=== PATIENT | female | born 1960 | race Caucasian/White ===

== ENCOUNTER 2018-02-28 00:48 | Outpatient (CLI) | payer OTHER, SELFPAY ==
--- NOTE | 2018-02-28 10:10 | MERGE_ITS ---
*[facility]* *[facility]* [address] [place] [address] Date of study: 02/28/2018 Transthoracic Echocardiography M-mode, complete 2D, complete spectral Doppler, and color Doppler *STUDY CONCLUSIONS* Summary: 1. Left ventricle: The cavity size was normal. The estimated ejection fraction was 50%. There was no evidence of elevated ventricular filling pressure by Doppler parameters. 2. Ventricular septum: Septal motion showed paradoxical motion. 3. Aortic valve: There was mild regurgitation. 4. Mitral valve: There was mild to moderate regurgitation. 5. Right ventricle: The cavity size was normal. Wall thickness was normal. Systolic function was normal. 6. Atrial septum: No defect or patent foramen ovale was identified. 7. Pulmonary arteries: Pulmonary systolic pressure was in the range of 15mm Hg to 25mm Hg. 8. Inferior vena cava: The vessel was patent and normal in size. The respirophasic diameter changes were in the normal range (greater than or equal to 50%), consistent with normal central venous pressure. *PATIENT PRESENTATION* Height: 165.1cm ((65in) ) S/D Pressure: 130 / 77 Weight: 72.6kg ((159.7lb) ) BSA: 1.84m^2 Test start time: 10:30 AM. Test stop time: 11:20 AM. PERFORMING Unknown PERFORMING [facility] ORDERING Catalina Black Aprn REFERRING Catalina Black Aprn BANKING MANAGEMENT CONSULTING MANAGER Alysha Foote, (R)(CT), ARTIE *PROCEDURE DATA* Procedure information: The patient was identified by two identifiers. This study was interpreted by [facility]. Pertinent images and digital data are archived for permanent storage and are available for subsequent review. No prior study was available for comparison. Study status: Routine. Transthoracic echocardiography. M-mode, complete 2D, complete spectral Doppler, and color Doppler. A Transthoracic Echocardiogram was performed. Scanning was performed from the parasternal, apical, subcostal, and suprasternal notch acoustic windows. Images were obtained using an [id number] cardiac ultrasound machine. Image quality was adequate. Study completion: The patient tolerated the procedure well. History: PMH: Left bundle branch block. *CARDIAC ANATOMY* Left ventricle: The cavity size was normal. The estimated ejection fraction was 50%. The tissue Doppler parameters were abnormal. Diastolic parameters were normal for age. There was no evidence of elevated ventricular filling pressure by Doppler parameters. Aortic valve: Trileaflet. Doppler: There was no stenosis. There was mild regurgitation. VTI ratio of LVOT to aortic valve: 0.64. Valve area (VTI): 2.1cm^2. Indexed valve area (VTI): 1.1cm^2/m^2. Peak velocity ratio of LVOT to aortic valve: 0.63. Valve area (Vmax): 2.1cm^2. Indexed valve area (Vmax): 1.1cm^2/m^2. Mean velocity ratio of LVOT to aortic valve: 0.57. Valve area (Vmean): 1.8cm^2. Indexed valve area (Vmean): 1cm^2/m^2. Mean gradient (S): 3.2mm Hg. Peak gradient (S): 6mm Hg. Aorta: Aortic root: The aortic root was normal in size. Ascending aorta: The ascending aorta was normal in size. Mitral valve: Doppler: There was no evidence for stenosis. There was mild to moderate regurgitation. Valve area by pressure half-time: 3.3cm^2. Indexed valve area by pressure half-time: 1.8cm^2/m^2. Left atrium: The atrium was normal in size. Atrial septum: No defect or patent foramen ovale was identified. Right ventricle: The cavity size was normal. Wall thickness was normal. Systolic function was normal. Ventricular septum: Septal motion showed paradoxical motion. Pulmonic valve: Doppler: There was no evidence for stenosis. There was mild regurgitation. Peak gradient (S): 2.5mm Hg. Tricuspid valve: Doppler: There was mild regurgitation. Pulmonary artery: Poorly visualized. Pulmonary systolic pressure was in the range of 15mm Hg to 25mm Hg. Right atrium: The atrium was normal in size. Pericardium: There was no pericardial effusion. Systemic veins: Inferior vena cava: Well visualized. The vessel was patent and normal in size. The respirophasic diameter changes were in the normal range (greater than or equal to 50%), consistent with normal central venous pressure. Baseline ECG: with left bundle branch block. Measurements Left ventricle Value Reference LV ID, ED, PLAX 5.3 cm 3.5 - 6.0 LV ID, ES, PLAX 4.0 cm 2.1 - 4.0 LV PW thickness, ED, PLAX 0.8 cm LV end-diastolic volume, 1-p A2C 89 ml LV ejection fraction, 1-p A2C 54 % LV end-diastolic volume, 1-p A4C 73 ml LV ejection fraction, 1-p A4C 43 % LV e', lateral 0.086 m/sec LV E/e', lateral 5 LV e', medial 0.057 m/sec LV E/e', medial 8 LV e', average 0.071 m/sec LV E/e', average 6 Ventricular septum Value Reference IVS thickness, ED, PLAX 0.8 cm LVOT Value Reference LVOT ID, A-P 2.0 cm LVOT area 3.3 cm^2 LVOT peak velocity, S 0.77 m/sec LVOT mean velocity, S 0.49 m/sec LVOT VTI, S 18.0 cm LVOT peak gradient, S 2.4 mm Hg LVOT mean gradient, S 1.2 mm Hg Stroke volume (SV), LVOT DP 59 ml Stroke index (SV/bsa), LVOT DP 32 ml/m^2 Aortic valve Value Reference Aortic valve peak velocity, S 1.2 m/sec Aortic valve mean velocity, S 0.86 m/sec Aortic valve VTI, S 28.0 cm Aortic mean gradient, S 3.2 mm Hg Aortic peak gradient, S 6 mm Hg VTI ratio, LVOT/AV 0.64 Aortic valve area, VTI 2.1 cm^2 Velocity ratio, peak, LVOT/AV 0.63 Aortic valve area, peak velocity 2.1 cm^2 Velocity ratio, mean, LVOT/AV 0.57 Aortic valve area, mean velocity 1.8 cm^2 Aortic valve area/bsa, mean velocity 1 cm^2/m^2 Aortic regurg velocity, ED 3.36 m/sec Aortic regurg gradient, ED 45.1 mm Hg Aorta Value Reference Aortic root ID, ED 3.4 cm Ascending aorta ID, A-P, S 3.2 cm RVOT Value Reference RVOT VTI, S 13.9 cm Left atrium Value Reference LA ID, A-P, ES 2.7 cm LA ID/bsa, A-P 1.5 cm/m^2 <=2.2 LA area, ES, A4C 17.2 cm^2 8.8 - 23.4 LA area, ES, A2C 17 cm^2 LA volume/bsa, ES, 1-p A4C 27 ml/m^2 LA volume, ES, 2-p 44 ml LA volume/bsa, ES, 2-p 24 ml/m^2 LA/aortic root ratio 0.79 Mitral valve Value Reference Mitral E-wave peak velocity 0.45 m/sec Mitral A-wave peak velocity 0.71 m/sec Mitral deceleration time (H) 231 ms 150 - 230 Mitral pressure half-time 67 ms Mitral E/A ratio, peak 0.63 Mitral valve area, PHT, DP 3.3 cm^2 Mitral peak LV-LA gradient, S 139.2 mm Hg Mitral maximal regurg velocity, PISA 5.9 m/sec Mitral regurg VTI, PISA 235.0 cm Pulmonary veins Value Reference Pulmonary vein peak velocity, S 0.4 m/sec Pulmonary vein peak velocity, D 0.27 m/sec Pulmonary vein velocity ratio, peak, 1.48 S/D Pulmonary vein A-wave reversal peak 0.32 m/sec velocity Pulmonary vein A-wave reversal 122 ms duration Tricuspid valve Value Reference Tricuspid regurg peak velocity 2.2 m/sec Tricuspid peak RV-RA gradient 19.4 mm Hg Right atrium Value Reference RA area, ES, A4C 14.9 cm^2 8.3 - 19.5 Pulmonic valve Value Reference Pulmonic peak gradient, S 2.5 mm Hg Legend: (L) and (H) carmine values outside specified reference range. I have personally reviewed the images and have reviewed and edited the reported findings. Electronically signed by Howard Roper MD 02/28/2018 12:10
== END 2018-02-28 01:08 ==
PROVIDERS: PCP Nurse Practitioner Family; Visit Provider Nurse Practitioner Family
DX: I44.7 Left bundle-branch block, unspecified (principal); I08.0 Rheumatic disorders of both mitral and aortic valves
CPT/HCPCS: 93306

== ENCOUNTER 2018-03-01 08:04 | Outpatient (REF) | payer OTHER, SELFPAY ==
[2018-03-01 14:26] LABS: ALT 16 U/L (12-78); AST 14 U/L (15-37); Albumin 3.5 g/dL (3.4-5.0); Alkaline Phosphatase 109 U/L (46-116); Anion Gap 5.9 mmol/L (3-11); BUN 24 mg/dL (7-18); Bilirubin, Total 0.3 mg/dL (0.2-1.0); CO2 30.1 mmol/L (21.0-32.0); CREATININE 0.87 mg/dL (0.55-1.02); Calcium 8.3 mg/dL (8.5-10.1); Chloride 104 mmol/L (98-107); Cholesterol 212 mg/dL (50-200); Glucose 88 mg/dL (70-100); HDL Cholesterol 38 mg/dL (40-60); LDL CHOLESTEROL 159 mg/dL (<100); Potassium 4.2 mmol/L (3.5-5.1); Sodium 140 mmol/L (136-145); Total Protein 7.1 g/dL (6.4-8.2); Triglyceride 101 mg/dL (30-150)
== END 2018-03-01 08:24 ==
LOC: NCHCN 08:04
PROVIDERS: PCP Nurse Practitioner Family; Visit Provider Nurse Practitioner Family
DX: Z00.00 Encounter for general adult medical examination without abnormal findings (principal); Z13.220 Encounter for screening for lipoid disorders; Z13.228 Encounter for screening for other metabolic disorders
CPT/HCPCS: 80053; 80061; 83721

== ENCOUNTER 2018-03-14 10:41 | Day surgery (SDC) | payer OTHER, SELFPAY ==
--- NOTE | 2018-03-14 06:30 | PDOC.DSDIS_ITS ---
Discharge Plan Disposition Patient Disposition: HOME Condition: Good Discharge Details Reason For Visit: Colon Cancer screening Attending Provider: Stephanie Freeman Primary Care Provider: Catalina Barroso Home Meds and New Rx's Prescriptions: Continue acyclovir 400 MG tablet 400 mg PO PRN PRNRF: 0 lorazepam 0.5 MG tablet 0.5 mg PO PRN RF: 0 metronidazole [MetroCream] 45 GM cream 45 gm Topical RF: 0 Loratadine 10 MG TAB.RAPDIS 10 mg PO DAILY PRNRF: 0 Sertraline HCl [Zoloft] 100 MG tablet 100 mg PO DAILY RF: 0 Discontinued polyethylene glycol 3350 17 gram powder in packet 255 g PO DAILY Qty: 15 RF: 0 bisacodyl [Dulcolax (bisacodyl)] 5 mg tablet,delayed release (DR/EC) 5 mg PO ONCE Qty: 4 RF: 0 Discharge Instructions Instructions: Colonoscopy (DC), Diverticulosis (DC), Colorectal Polyps (DC) Additional Instructions: Findings: Diverticulosis sigmoid colon polyp Follow up: 3-5 years New Medications: none Please call if you develop: fevers >101.5 Nausea or Vomiting Abdominal pain that is not transient 1. Because there will be medication in your system for the next 24 hours, you may feel a little sleepy. Your coordination will be affected. Therefore: a. Do not drive or operate dangerous equipment for 24 hours. b. Do not drink alcohol beverages for 24 hours (not even beer). c. Plan to go home and rest for the day. 2. Generally there are no restrictions on your activity after a day or so has gone by, but you may feel a bit fatigued for a few days. 3 After you arrive home you may have a light meal and return to a normal diet as you can tolerate it without feeling sick to your stomach. 4. After surgery, you may feel pain or discomfort. This should be only transient , but if it persists please contact your doctor. 5. If there are any questions regarding the findings of your procedure, please feel free to contact your doctor. 6. If you are unable to contact your doctor with a problem, contact the hospital at [phone]. 7. Continue all your regular medications unless directed otherwise. I understand the above instructions and have no questions. Signature of Patient or Responsible Adult Escort Date/Time Name of Responsible Adult Escort Signature of Nurse Date/Time Activity:: Activity as Tolerated Diet:: high fiber diet Discharge Orders Discharge Orders: Discharge Order (Routine); Ordered 03/14/18 Ordered By: Stephanie Freeman DS: Diagnosis Discharge Diagnosis (1) Diverticulosis large intestine w/o perforation or abscess w/o bleeding: Status: Acute (2) Colorectal polyp detected on colonoscopy: Status: Acute
--- NOTE | 2018-03-14 06:30 | W.COLOREPORT ---
Date of service: 03/14/18 Colonoscopy Report Date of procedure: 03/14/18 Pre-op diagnosis general: Colon Cancer screening Post-op diagnosis procedure note: other (Severe Diverticulosis, sigmoid polyp) Procedure: Colonoscopy with polypectomy by cold forceps Surgeon: Stephanie Freeman Anesthesia proc note operative: MAC (Shima Monae CRNA) Estimated blood loss (mL): 5 Pathology: other (sigmoid colon polyp) Complications: None Disposition: same day Indications: Mrs. Lawton is a pleasant 57-year-old female who was seen in the office for her first screening colonoscopy. Risks, benefits and complications were reviewed with her and she wished to proceed no guarantees were given or implied. Prep: Miralax/Dulcolax Procedure Start Time: 13:36 Procedure End Time: 13:58 Retraction Time: 10 minutes Findings: Severe Diverticulosis of left colon Sigmoid polyp Procedure Description: After informed consent was obtained the patient was taken to the procedure room and placed in a left decubitous position. Monitors were applied and a time out was done. The patients name, date of , procedure, allergies to medications and metal in their body was reviewed. The patient was then sedated. Once sedated and comfortable a rectal exam was done. External exam was normal. Internal exam revealed a normal sphincter tone and no palpable masses. The scope was then introduced and retroflexed. No internal hemorrhoids were identified. The scope was then advanced to the cecum without difficulty. The TI and appendiceal orifice were identified. The prep was adequate. The scope was then slowly retracted over 10 minutes back into the rectum. The scope was removed and the patient was woken up and taken back to Same day surgery in stable condition. There was one sigmoid polyp which was removed. There was also severe diverticulosis of the sigmoid colon The patient tolerated the procedure well and there were no immediate complications. Follow up: The patient should follow up in 3-5 years depending on final pathology, unless they develop changes in bowel habits or other new gastrointestinal complaints.
[2018-03-14 11:07] VITALS: BP 125/86; PULSE 91; RESP 18; TEMP 36.2; O2SAT 96
[2018-03-14] MEDS: Lactated Ringers 1,000 ML 80 ML IV (11:30)
--- NOTE | 2018-03-14 13:53 | BOWEL_PTH ---
PATIENT: Yara Lawton LOC: [facility] U#:[id number] AGE/SX: 57/F ROOM: RE03/14/[address]: Stephanie Freeman MD : 1960 BED: DIS: 03/14/2018 SPEC #: [id number] RECD: 03/14/18 17:05 STATUS: ROCIO REQ #: [id number] GRAHAM: 03/14/18 13:[address]: Stephanie Freeman DEPT: Surgical Specimen RECD BY: Zahra Hyde ENTERED: 03/14/18 17:05 SP TYPE: Bowel OTHR DR: Catalina Barroso Tissues: 1 - BIOPSY BOWEL Procedures: GROSS AND MICRO LEVEL 4 Comments: [id number]
[2018-03-14 14:35] VITALS: BP 113/83; PULSE 66; RESP 20; TEMP 36.3; O2SAT 98
== END 2018-03-14 15:00 | disposition home or self-care (01) ==
LOC: SUR 10:42
PROVIDERS: PCP Nurse Practitioner Family; Visit Provider Surgery
PROC: 0DJD8ZZ Inspection of Lower Intestinal Tract, Via Natural or Artificial Opening Endoscopic (ICD-10-PCS; CPT 45378; principal; 2018-03-14 12:30)
DX: Z12.11 Encounter for screening for malignant neoplasm of colon (principal); D12.5 Benign neoplasm of sigmoid colon; K57.30 Diverticulosis of large intestine without perforation or abscess without bleeding
CPT/HCPCS: 45380; 88305

== ENCOUNTER 2018-06-09 11:23 | Outpatient (CLI) | payer OTHER, SELFPAY | END 2018-06-09 11:43 | PROVIDERS: PCP Nurse Practitioner Family; Visit Provider Internal Medicine Cardiovascular Disease | DX: I44.7 Left bundle-branch block, unspecified (principal); I35.1 Nonrheumatic aortic (valve) insufficiency; I34.0 Nonrheumatic mitral (valve) insufficiency | CPT/HCPCS: 93005; 93010 ==

== ENCOUNTER 2018-06-13 01:31 | Outpatient (CLI) | payer OTHER, SELFPAY ==
--- NOTE | 2018-06-13 10:06 | DI.MAMMO_ITS ---
SYMPTOMS/DIAGNOSIS: SCREENING ANNUAL PHYSICAL, Z00.00, Z12.31, IMPLANTS MAMMOGRAM: Mammograms were interpreted according to the usual protocol including computer analysis with CAD system, tomosynthesis and C view imaging. Comparison is made with exams from 2010 through 2017. There are bilateral saline breast implants which appear intact. The breasts are composed of heterogeneously dense fibroglandular tissue, breast density Category C. No suspicious masses or suspicious calcifications are seen. There has been no significant change. IMPRESSION: Category I C, negative mammogram. Yearly screening mammography is recommended. [facility] ASSESSMENT OF FINDINGS: Negative. Category 1. Patient will receive a letter notifying them of these results. Bi-RADS category C. The breasts are heterogeneously dense, which may obscure small masses.
== END 2018-06-13 01:51 ==
PROVIDERS: PCP Nurse Practitioner Family; Visit Provider Nurse Practitioner Family
DX: Z00.00 Encounter for general adult medical examination without abnormal findings (principal); Z12.31 Encounter for screening mammogram for malignant neoplasm of breast; Z98.82 Breast implant status
CPT/HCPCS: 77063; 77067

== ENCOUNTER 2018-06-20 00:07 | Outpatient (CLI) | payer OTHER, SELFPAY ==
--- NOTE | 2018-06-20 07:28 | MERGEMPI_ITS ---
*[facility]* *[facility]* [address] [place] [address] Myocardial Perfusion Imaging - SPECT Regadenoson Date of study: 06/20/2018 (Report amended ) *PATIENT PRESENTATION* Height: 167.6cm (66in) Blood Pressure: Weight: 72.7kg (160lb) BSA: 1.85m^2 Referring physician: Howard Roper MD Ordering physician: Shantel Guerrero Impressions: - Normal perfusion by Tc99m Sestamibi Imaging. - Abnormal contraction consistent with cardiomyopathy. Summary: 1. Myocardial perfusion imaging: No myocardial perfusion defects noted. Small size mild intensity fixed anteroapical defect C/W breast shadow. 2. The calculated left ventricular ejection fraction after stress: 41%. Diffuse left ventricular regional motion abnormalities. There is moderate hypokinesis involving the apical wall(s) of the left ventricle. Indication: I44.7, I35.1, I34.0. History: REASON FOR TESTING: PHARMACOLOGICAL PERFUSION STUDY TO FURTHER ASSESS AND TO RISK STRATIFY PATIENT HAS A STRONG HISTORY OF CORONARY ARTERY DISEASE. DENIES CHEST PAIN/RESSURE, SOB. SIGNIFICANT PAST MEDICAL HISTORY: LEFT BUNDLE BRANCH BLOCK. SMOKING STATUS: QUIT 2006. 25 YEAR PPD HISTORY. 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 Risk factors: Family history of coronary artery disease. Dyslipidemia. ALLERGIES: CEXEXA, PAXIL. MEDICATIONS: ZOLOFT 100 MG DAILY, ACYCLOVIR 400 MG PRN, LORAZEPAM 0.5 MG PRN. Imaging Technique: Protocol: Regadenoson. Acquisition: Gated SPECT; 1 day - rest/stress. The patient was imaged in the supine position. Attenuation correction used. Isotope administration: - Rest. Tc[99m]-sestamibi. Dose: 9.6mCi. Injection time: 09:30 AM. Injection to stress time: 00:45. - Stress. Tc[99m]-sestamibi. Dose: 30mCi. Injection time: 11:35 AM. 1-2 min before end of exercise Baseline ECG: SINUS RHYTHM WITH LEFT BUNDLE BRANCH BLOCK. HEART RATE 73 BPM. Stress protocol: +--------+--+ + + !Stage !HR!BP (mmHg) !Comments ! +--------+--+ + + !Baseline!78!120/80 (93)! ! +--------+--+ + + !1 min !97!124/76 (92)!Inject Regadenoson.! +--------+--+ + + !3 min !98!120/72 (88)! ! +--------+--+ + + !6 min !84!122/72 (89)! ! +--------+--+ + + * Stress results: STRESS TEST ENDED IN 6 MINUTES 55 SECONDS. NO SIGNIFICANT SIDE EFFECTS FROM LEXISCAN INJECTION. NORMAL HEART RATE AND BLOOD PRESSURE RESPONSE TO LEXISCAN INJECTION. NO ECTOPY NO ANGINA L BBB AT BASELINE AND THROUGHOUT TESTING, DIFFICULT TO ASCERTAIN SIGNIFICANT ST SEGMENT CHANGES. The rate-pressure product for the peak heart rate and blood pressure was 55895be Hg/min. Myocardial perfusion: Imaging information: gated. No myocardial perfusion defects noted. Ventricular Function (Wall Motion): The calculated left ventricular ejection fraction after stress: 41%. Diffuse left ventricular regional motion abnormalities. There is moderate hypokinesis involving the apical wall(s) of the left ventricle. Study data: Howard Roper MD supervised and was readily available during the procedure. This study was interpreted by [facility]. Study status: Routine. Consent: The risks, benefits, and alternatives to the procedure were explained to the patient and informed consent was obtained. Procedure: Initial setup. A baseline ECG was recorded. Surface ECG leads and manual cuff blood pressure measurements were monitored. Heart sounds: Normal. Lung sounds: Normal. Regadenoson stress test. Stress testing was performed, with regadenoson by intravenous bolus, for a total dose of 0.4mgover 10.00sec, followed by a 5ml saline flush. The infusion was terminated due to per protocol. Study completion: All catheters inserted during the procedure were removed. The patient tolerated the procedure well and was discharged from the lab. Discharge: The patient left the laboratory in stable condition. Birthdate: Patient birthdate: 1960. Sex: Gender: female. Study date: Study date: 06/20/2018. Study time: 07:28 AM. Electronically signed by Howard Roper MD 06/20/2018 16:00
[2018-06-20] MEDS: Regadenoson 0.4 MG/5 ML SYR IVP (11:03)
== END 2018-06-20 00:27 ==
PROVIDERS: PCP Nurse Practitioner Family; Visit Provider Internal Medicine Cardiovascular Disease
DX: I34.0 Nonrheumatic mitral (valve) insufficiency (principal); I35.1 Nonrheumatic aortic (valve) insufficiency; I44.7 Left bundle-branch block, unspecified; I42.9 Cardiomyopathy, unspecified; E78.5 Hyperlipidemia, unspecified; Z87.891 Personal history of nicotine dependence; Z82.49 Family history of ischemic heart disease and other diseases of the circulatory system
CPT/HCPCS: 78452; 93017; J2785

== ENCOUNTER 2018-06-26 05:43 | Emergency (ER) | payer OTHER, SELFPAY ==
[2018-06-26] VITALS (34 sets, daily range): BP systolic 111–126; BP diastolic 56–75; PULSE 104–117; RESP 16–40; TEMP 36.2–38.4; O2SAT 78–98
--- NOTE | 2018-06-26 05:58 | DI.RAD_ITS ---
SYMPTOM/DIAGNOSIS: SOB PORTABLE CHEST: There are extensive bilateral air space densities involving both upper and lower lobes. suspicious for bilateral pneumonia and could also be secondary to edema or pulmonary hemorrhage. No effusions or pneumothorax is seen. IMPRESSION: Extensive bilateral infiltrates.
[2018-06-26] MEDS: Albuterol/Ipratropium 3 ML UPD VIAL UPD (06:10)
--- NOTE | 2018-06-26 06:15 | DI.VRAD_ITS ---
EXAM: XR Chest, 1 View EXAM DATE/TIME: 06/26/2018 5:58 AM CLINICAL HISTORY: 58 years old, female; Signs and symptoms; Shortness of breath; Patient HX: SOB TECHNIQUE: XR of the chest, 1 view. COMPARISON: No relevant prior studies available. FINDINGS: Lungs: Diffuse patchy airspace disease with underlying nodular opacities. Pleural space: Unremarkable. No evidence of pneumothorax. Heart/Mediastinum: Unremarkable. Heart size within normal limits for technique. Bones/joints: Unremarkable. IMPRESSION: Nonspecific airspace disease with some underlying nodular opacities. Suggest CT scan of the chest for further characterization. This should be done with intravenous contrast if the patient's renal function is adequate. Dictated and Authenticated by: Elroy Gomez MD. Ordering:JACE Pineda MD
[2018-06-26 06:20] LABS: Abs Immature Grans 0.02 k/cumm (0.0-0.09); Absolute Basophil Count 0.01 k/cumm (0.0-0.2); Absolute Lymphocyte Count 0.51 k/cumm (1.2-3.4); Absolute Monocyte Count 0.15 k/cumm (0.11-0.7); Absolute Neutrophil Count 9.85 k/cumm (1.2-6.7); Basophils % 0.1; HCT 36.4 % (36.0-46.0); HGB 12.4 g/dL (12.0-15.5); Immature Grans % 0.2; Lymphocytes % 4.8; Mean Corp. HGB Concentration 34.1 g/dL (32.0-36.0); Mean Corpuscular Volume 87.9 fL (80-95); Mean Platelet Volume 10.7 fL (8.0-11.0); Monocytes % 1.4; Neutrophils % 93.5; Platelet Count 202 x1000/uL (130-400); RBC 4.14 m/cumm (4.00-5.20); RBC Distribution Width 12.9 % (11.7-14.6); White Blood Cell Count 10.54 k/cumm (4.4-10.8)
[2018-06-26 06:25] LABS: Lactate-non-spesis 1.7 mmol/l (0.6-1.4)
--- NOTE | 2018-06-26 06:33 | W.ED.GENAD ---
Discharge Plan Disposition Patient Disposition: [facility] Condition: Stable Discharge Details Chief Complaint: SOB Clinical Impression: Multifocal pneumonia, Hypoxemia Primary Care Provider: Catalina Barroso ED Provider: Edwin Berg R[place]ford Meds and New Rx's Prescriptions: No Action acyclovir 400 MG tablet 400 mg PO PRN PRNRF: 0 lorazepam 0.5 MG tablet 0.5 mg PO PRN RF: 0 Sertraline HCl [Zoloft] 100 MG tablet 100 mg PO DAILY RF: 0 Medical Decision Making Patient here in severe respiratory distress. Saturations are in the 70s on room air. On facemask she is in the 90s and feels better although still quite tachypneic. Lungs have diffuse wheezes, rales, rhonchi throughout. She has no previous cardiac or lung history other than left bundle branch block. She is ordered for DuoNeb to see if this helps at all. IVs are established and laboratory studies sent. EKG is ordered. In review of patient's medical records she had an echo in February and had an EF of 50%. [facility] her EF is estimated at 40%. She reports that she is gotten steadily worse since that test. DuoNeb treatment did not really help. She does feel better with saturations in the mid 90s on nonrebreather facemask at 10 L. She is not febrile here. Her initial EKG appears to be sinus tach with bigeminy at times and left bundle branch block. Second EKG done is better quality it is sinus tach with a left bundle branch block and not significantly changed from previous. Patient does not have an elevated white count. Her sodium is low at 126 and previously had been normal. Repeat BMP confirms the hyponatremia. Troponin is negative. BNP is somewhat elevated to around 700 range. Chest x-ray shows what appears to be multifocal infiltrates. ABG shows a pH of 7.52 with a PCO2 of 33 consistent with a respiratory alkalosis from her tachypnea. PO2 is 74 on a nonrebreather. I did place ultrasound probe on her chest. There possibly may be an effusion. She does not have JVD. She does not have hypotension. My differential includes ARDS, viral pneumonia, community-acquired pneumonia, Legionnaires' disease, viral myocarditis/pericarditis with effusion. Patient sent for CT scan noncontrast of the chest. Per radiology they do not feel there is a pericardial effusion. They do feel that she has bilateral patchy lung consolidation consistent with asymmetric multifocal pneumonia. I have spoke to [facility] transfer center and awaiting a call back from the hospitalist. Patient is ordered for ceftriaxone, and azithromycin, vancomycin. Discussed with team at [facility]. Patient accepted by Dr. Arauz to go to the ICU there. Will be transported by paramedics with use of CPAP if necessary to support respiratory status. Will cover with Tamiflu in addition to antibiotics. Transferred in stable condition. HPI General Mode of arrival: wheelchair. Date/Time Provider Initiated Documentation: 06/26/18 05:56. Limitations to Documentation: no limitations. Information obtained by: patient and family. HPI Narrative: Patient is brought in by her today because of increasing shortness of breath. Patient was fine 1 week ago. On Wednesday she had a nuclear stress test because of a left bundle branch block. She states that after this test she did not feel well. By Wednesday she had cough and shortness of breath. She had low-grade fevers. She has not had nasal congestion or rhinorrhea, body aches, rashes. Over the rest of the week she has had increasing shortness of breath to the point with this morning she was extremely short of breath and was brought in by her for evaluation. She denies having chest pain or back pain. She was well earlier this month with no issues until this last week. She was seen by her PCP 5 days ago and told that she had the flu. Related Data Home Medications Medication Instructions Recorded Confirmed Sertraline HCl [Zoloft] 100 mg PO DAILY tab-cap NS 11/30/17 06/26/18 acyclovir 400 mg PO PRN PRN NS 11/30/17 06/26/18 lorazepam 0.5 mg PO PRN NS 11/30/17 06/26/18 Allergies Allergy/AdvReac Type Severity Reaction Status Date / Time citalopram [From Celexa] Allergy panic Verified 06/26/18 07:24 attacks paroxetine [From Paxil] AdvReac Intermediate panic Verified 06/26/18 07:24 attack season Allergy Mild Uncoded 06/26/18 07:24 General Stated Complaint: SOB SHARONDA: 1 Review of Systems Review of Systems Unobtainable due to (unable to obtain due to respiratory distress/acuity of condition) [facility] Medical History Rosacea (Chronic 11/30/17) Migraine without status migrainosus, not intractable (Chronic 11/30/17) Depression (Chronic 11/30/17) Atypical squamous cells of undetermined significance (ASC-US) on cervical Pap smear (Chronic 03/25/17) Anxiety (Chronic 11/30/17) Left bundle branch block (LBBB) on electrocardiogram (Chronic) Surgical History H/O breast augmentation (Inactive) H/O rhinoplasty (Inactive) History of bilateral carpal tunnel release (Inactive) Social History Smoking/Tobacco Use Status: Former Tobacco Use alcohol intake: current alcohol intake frequency: holidays/special occasions only substance use type: does not use Exam Const General: acute distress and ill appearing Orientation: alert and oriented x3 HENPR Head: normocephalic and atraumatic Mouth: mucous membranes dry Neck Neck: trachea midline, supple and no JVD Resp Effort & Inspection: respiratory distress Auscultation: rales, rhonchi and wheezes Cardio Rate: tachycardic Rhythm: regular rhythm Heart Sounds: S1 normal and S2 normal Pulses: radial pulses present GI Palpation: soft, not firm, no guarding and nontender Skin General skin exam: no rashes or lesions noted Neuro General: alert, oriented x3, no focal motor deficits and CN's II-XI intact bilaterally Cognition: normal cognition Speech: speech normal Extrem General: no clubbing, cyanosis or edema Course Vital Signs Temperature 97.2 F L 06/26/18 05:52 Pulse 108 H 06/26/18 05:52 Respiratory Rate 40 H 06/26/18 05:52 Blood Pressure 126/67 06/26/18 05:52 Pulse Oximetry 78 L 06/26/18 05:52 Temperature 97.2 F L 06/26/18 05:52 Temperature Source Temporal Artery Scan 06/26/18 05:52 Pulse 108 H 06/26/18 05:52 Respiratory Rate 24 06/26/18 06:11 Respiratory Effort 06/26/18 06:11 Respiratory Depth Shallow 06/26/18 06:11 Respiratory Pattern Tachypnea 06/26/18 06:11 Blood Pressure 126/67 06/26/18 05:52 Blood Pressure Position Supine 06/26/18 05:52 Pulse Oximetry 97 06/26/18 06:06 Oxygen Delivery Method Non-Rebreather 06/26/18 06:06 Oxygen Flow Rate 0 06/26/18 06:06 Pain Level 0 06/26/18 05:52 Comment 06/26/18 05:52 Lab/Test Results Lab/Test Results: Laboratory Tests Range/Units 06/26/18 06/26/18 06:00 06:00 WBC (4.4-10.8) k/cumm 10.54 RBC (4.00-5.20) m/cumm 4.14 Hgb (12.0-15.5) g/dL 12.4 Hct (36.0-46.0) % 36.4 MCV (80-95) fL 87.9 MCH (27.0-33.0) pg 30.0 MCHC (32.0-36.0) g/dL 34.1 RDW (11.7-14.6) % 12.9 Plt Count (130-400) x1000/uL 202 MPV (8.0-11.0) fL 10.7 Immature Gran % 0.2 Neutrophils % 93.5 Lymphocytes % 4.8 Monocytes % 1.4 Eosinophils % 0.0 Basophils % 0.1 Absolute Neutrophils (1.2-6.7) k/cumm 9.85 H Absolute Lymphocytes (1.2-3.4) k/cumm 0.51 L Absolute Monocytes (0.11-0.7) k/cumm 0.15 Absolute Eosinophils (0.0-0.7) k/cumm 0.00 Absolute Basophils (0.0-0.2) k/cumm 0.01 Lactate (0.6-1.4) mmol/l 1.7 H Critical Care Time Critical Care Time: Yes Total Critical Care Time: 75 Attestation: Management and diagnosis of acute respiratory distress and multifocal pneumonia
--- NOTE | 2018-06-26 06:36 | DI.CT_ITS ---
SYMPTOM/DIAGNOSIS: SOB, ABNORMAL CXR NONCONTRAST CHEST CT: There are no prior comparison exams. There are areas of multi-focal dense consolidation in both upper and lower lobes. The findings could represent bilateral pneumonia. No effusions are seen. The heart size appears normal. There are bilateral breast implants. No adenopathy is visible. IMPRESSION: Multifocal infiltrates consistent with pneumonia.
[2018-06-26 06:39] LABS: NT-proBNP 710 pg/mL
[2018-06-26 06:40] LABS: ALT 18 U/L (12-78); AST 38 U/L (15-37); Albumin 2.6 g/dL (3.4-5.0); Alkaline Phosphatase 87 U/L (46-116); Anion Gap 9.2 mmol/L (3-11); BUN 17 mg/dL (7-18); Bilirubin, Total 0.8 mg/dL (0.2-1.0); CO2 27.8 mmol/L (21.0-32.0); CREATININE 1.05 mg/dL (0.55-1.02); Calcium 8.8 mg/dL (8.5-10.1); Chloride 89 mmol/L (98-107); Estimated GFR 53.46 (mL/min/1.73m2); Glucose 133 mg/dL (70-100); Magnesium 1.7 mg/dL (1.8-2.4); Sodium 126 mmol/L (136-145); Total Protein 7.8 g/dL (6.4-8.2)
[2018-06-26 06:48] LABS: Troponin I < 0.02 ng/mL (0.00-0.06)
[2018-06-26] MEDS: Lactated Ringers 1,000 ML 125 ML IV (07:11)
[2018-06-26 07:14] LABS: BE 3.9 mmol/L (-3-3); HCO3 27 mmol/L (22-28); pCO2 33 mmHg (34-47); pH 7.52 (7.35-7.45); pO2 74 mmHg (83-108); sO2 96 % (94-98); tCO2 24 mmol/L (22-29)
[2018-06-26 07:16] LABS: Site Right Radial
--- NOTE | 2018-06-26 07:16 | DI.VRAD_ITS ---
EXAM: CT Chest Without Contrast EXAM DATE/TIME: 06/26/2018 6:38 AM CLINICAL HISTORY: 58 years old, female; Signs and symptoms and abnormal findings; Abnormal radiologic exam of lung or chest; Shortness of breath; Patient HX: SOB; Abnormal chest xray TECHNIQUE: Axial computed tomography images of the chest without intravenous contrast. COMPARISON: SC XR PORTABLE CHEST AP 06/26/2018 6:03 AM FINDINGS: Lungs: There is bilateral patchy lung consolidation, worse on the right, with air bronchogram formation compatible with multifocal pneumonia. Pleural space: No pleural effusion or pneumothorax. Heart: The heart is not enlarged. No pericardial effusion. Aorta: No thoracic aortic aneurysm. Lymph nodes: No pathologically enlarged lymph nodes. Bones/joints: Multilevel bridging osteophytes present in the thoracic spine. Soft tissues: Prior bilateral breast implants. Gallbladder and bile ducts: There is high attenuation material layering within the gallbladder. This could be due to sludge and/or tiny calculi. IMPRESSION: Asymmetric multifocal bilateral pneumonia. Dictated and Authenticated by: Bonifacio Bethea MD. Ordering:JACE Pineda MD
[2018-06-26 07:19] LABS: Anion Gap 8.8 mmol/L (3-11); BUN 17 mg/dL (7-18); CO2 28.2 mmol/L (21.0-32.0); CREATININE 0.91 mg/dL (0.55-1.02); Calcium 8.5 mg/dL (8.5-10.1); Chloride 89 mmol/L (98-107); Glucose 136 mg/dL (70-100); Potassium 4.1 mmol/L (3.5-5.1); Sodium 126 mmol/L (136-145)
[2018-06-26] MEDS: AZITHROMYCIN 500 MG in Normal Saline 250 ML 250 MG IVPB (07:58)
[2018-06-26] MEDS: Oseltamivir 75 MG CAP PO (08:20)
[2018-06-26] MEDS: Acetaminophen 325 MG TAB 650 MG PO (08:23)
[2018-06-26] MEDS: VANCOMYCIN 1,500 MG in Normal Saline 500 ML 333.3333 MG IVPB (08:31)
== END 2018-06-26 08:59 | disposition short-term general hospital (02) ==
PROVIDERS: Emergency Provider Emergency Medicine; PCP Nurse Practitioner Family
DX: J18.1 Lobar pneumonia, unspecified organism (principal); E87.6 Hypokalemia; R09.02 Hypoxemia; R00.0 Tachycardia, unspecified; I44.7 Left bundle-branch block, unspecified
CPT/HCPCS: 36415; 71250; 80048; 80053; 82805; 86713; 87040; 87449; 93005; 94640; 96361; 96365; 96366; 99285; 36600; 71045; 83605; 83735; 83880; 84484; 85025; 93010; J0456; J7620

== ENCOUNTER 2018-07-20 16:47 | Outpatient (CLI) | payer OTHER, SELFPAY ==
--- NOTE | 2018-07-20 14:54 | DI.RAD_ITS ---
SYMPTOMS/DIAGNOSIS: PNEUMONIA, J18.9 CHEST X-RAY, PA AND LATERAL: Comparison is 06/26/18. The cardiac silhouette is within normal limits and stable. Pulmonary vasculature is unremarkable. There are again seen bilateral pulmonary infiltrates. The infiltrates have shown some improvement compared to the prior examination, but they do persist. No new infiltrates are seen. No effusions or pneumothoraces are identified.
== END 2018-07-20 17:07 ==
PROVIDERS: PCP Nurse Practitioner Family; Visit Provider Nurse Practitioner Family
DX: J18.9 Pneumonia, unspecified organism (principal)
CPT/HCPCS: 71046

== ENCOUNTER 2018-08-29 00:18 | Outpatient (CLI) | payer OTHER, SELFPAY ==
--- NOTE | 2018-08-29 09:52 | DI.RAD_ITS ---
SYMPTOMS/DIAGNOSIS: PNEUMONIA, J18.9 PA AND LATERAL CHEST: The heart is not enlarged. The examination is compared to the previous examination of 07/20/18. The previous examination showed bilateral diffuse patchy intrapulmonary infiltrates. There is significant interval improvement on the current examination with some persistent mild bilateral interstitial patchy infiltrates. No pleural effusion seen. CONCLUSION: Interval improvement since the previous examination. Bilateral infiltrates persist.
== END 2018-08-29 00:38 ==
PROVIDERS: PCP Nurse Practitioner Family; Visit Provider Nurse Practitioner Family
DX: J18.9 Pneumonia, unspecified organism (principal)
CPT/HCPCS: 71046

== ENCOUNTER 2018-09-29 02:04 | Outpatient (RCR) | payer OTHER, SELFPAY | END 2018-10-28 23:59 | disposition home or self-care (01) | LOC: PRC 02:04 | PROVIDERS: PCP Nurse Practitioner Family; Visit Provider Family Medicine | DX: Z51.89 Encounter for other specified aftercare (principal) ==

== ENCOUNTER 2019-07-06 12:32 | Outpatient (CLI) | payer OTHER, SELFPAY ==
--- NOTE | 2019-07-06 12:21 | DI.RAD_ITS ---
EXAM: XR CHEST 2V PA LATERAL CLINICAL HISTORY: COUGH, R05,HEMOPTYSIS, R04.2, ARDS, J80, POST ARDS, NEW ONSET PRODUCTIVE COMPARISON: XR CHEST 2V PA LATERAL from 08/29/2018 FINDINGS: The heart is not enlarged. There are mild bilateral pulmonary reticular radiodensities consistent wi th fibrosis. Little if any interval change in appearance in comparison with previous examination of 08/29/2018, probable chronic change. No gross consolidation or pleural effusion identified. IMPRESSION: Stable appearance of the chest, presumed bilateral fibrotic changes.
== END 2019-07-06 12:52 ==
PROVIDERS: PCP Nurse Practitioner Family; Visit Provider Nurse Practitioner Family
DX: R05 Cough (principal); R04.2 Hemoptysis; J80 Acute respiratory distress syndrome; J84.10 Pulmonary fibrosis, unspecified
CPT/HCPCS: 71046

== ENCOUNTER 2019-07-23 07:13 | Emergency (ER) | payer OTHER, SELFPAY ==
[2019-07-23] VITALS (40 sets, daily range): BP systolic 109–142; BP diastolic 62–86; PULSE 61–82; RESP 12–21; TEMP 36.3; O2SAT 90–98
--- NOTE | 2019-07-23 07:15 | DI.RAD_ITS ---
EXAM: XR CHEST 2V PA LATERAL CLINICAL HISTORY: chest pain TECHNIQUE: COMPARISON: CT CHEST WO from 06/26/2018 XR CHEST 2V PA LATERAL from 08/29/2018 XR CHEST 2V PA LATERAL from 07/06/2019 CT CHEST PE CTA from 07/23/2019 FINDINGS: The heart is not enlarged. There is increased pulmonary interstitial prominence particularly in the perihilar areas, grossly unchanged from prior study of 08/29/2018. No pleural effusion seen. No foc al consolidation. IMPRESSION: Stable appearance of the chest, mild increase in interstitial markings noted.
--- NOTE | 2019-07-23 07:22 | ED.GENADUL_ITS ---
Discharge Plan Disposition Patient Disposition: HOME Condition: Stable Discharge Details Chief Complaint: Chest Pain Clinical Impression: Chest pain Primary Care Provider: Leland Echavarria ED Provider: Catalino Mercado Home Meds and New Rx's Prescriptions: New azithromycin 250 mg tablet See Rx Instructions .ROUTE .COMPLEX Qty: 6 RF: 0 Continued acyclovir 400 MG tablet 400 mg PO PRN PRNRF: 0 lorazepam 0.5 MG tablet 0.5 mg PO PRN RF: 0 Sertraline HCl [Zoloft] 100 MG tablet 100 mg PO DAILY RF: 0 Discharge Instructions Instructions: Chest Pain (ED), Acute Bronchitis (ED) Additional Instructions: Home to rest today. Return if you develop worsening discomfort, shortness of breath, or any other acute concerns. As we discussed, we will treat you for bronchitis with a course of azithromycin. Please follow-up with regular doctor if not improving in 5 days time. Medical Decision Making <Howard Mishra MD - Last Filed: 07/23/19 07:28> 59 yo female with hx of depression, former smoker, no known cardiac history comes in with chest pain that started last night and returned this morning. Denies radiation of the pain, n/v, diaphoresis or vomit. Describes a tightness and sharp ache of anterior chest. Denies any fevers or cough. Took a zantac with some relief of pain. No abdominal tenderness, clear lung sounds and no murmur. Given improved with zantac could be gastritis vs gerd vs esophagitis. Her heart score is 3, will send troponin. Wells score low, given age can't use perc to exclude Pe will obtain d dimer. No tearing back pain and normal vascular exam so doubt dissection pt signed out to Dr. Mercado pending lab and imaging results Differential Diagnosis Differential Diagnosis: gerd, nstemi, pe, pna Medical Records Medical records reviewed: Yes I reviewed the patient's medical records. ECG Data Attestation: I personally reviewed and interpreted this ECG (s) as follows: Prior ECG tracings: available for review Interpretation: sinus rhythm, left bundle branch block, rate of 80, no acute changes from prior <Catalino Mercado MD - Last Filed: 07/23/19 11:00> I received signout on the patient from Dr. Mishra. Please see his note regarding details of the history, presentation, plan of care. Patient's d-dimer was elevated, she was referred for CT scan of the chest which does not show evidence of pulmonary embolism. There is note of mild interstitial lung disease which may represent infectious versus inflammatory process. Troponin x2 unremarkable. Patient's discomfort improved. She has noted a cough. She may have a atypical bronchitis and therefore will treat with a course of antibiotics. She is stable and improved, appropriate to discharge to home at this time. HPI <Howard Mishra MD - Last Filed: 07/23/19 07:28> General Mode of arrival: ambulatory . Date/Time Provider Initiated Documentation: 07/23/19 07:14 . Limitations to Documentation: no limitations . Information obtained by: patient . History of Present Illness 59 year old F presents to the emergency department with the chief complaint of chest pain, described as mild, with intensity rated at 3. Quality is described as aching, and is localized to the chest. and it has been intermittent. No relieving factors improve symptom(s), No exacerbating factors reported . Patient notes no other symptoms.. Patient did receive the following treatments prior to arrival, other (zantac) Related Data Home Medications Medication Instructions Recorded Confirmed Sertraline HCl [Zoloft] 100 mg PO DAILY tab-cap NS 11/30/17 07/23/19 acyclovir 400 mg PO PRN PRN NS 11/30/17 07/23/19 lorazepam 0.5 mg PO PRN NS 11/30/17 07/23/19 azithromycin See Rx Instructions .ROUTE 07/23/19 .COMPLEX #6 tab Previous Rx's Medication Instructions Recorded azithromycin See Rx Instructions .ROUTE 07/23/19 .COMPLEX #6 tab Allergies Allergy/AdvReac Type Severity Reaction Status Date / Time citalopram [From Celexa] Allergy panic Verified 07/23/19 07:23 attacks paroxetine [From Paxil] AdvReac Intermediate panic Verified 07/23/19 07:23 attack season Allergy Mild Uncoded 07/23/19 07:23 General SHARONDA: 1 Review of Systems <Howard Mishra MD - Last Filed: 07/23/19 07:28> All systems reviewed & are unremarkable except as noted in HPI and below Constitutional Constitutional: Denies chills and Denies fever(s) Cardiovascular Cardiovascular: Denies dyspnea Respiratory Respiratory: Denies cough and Denies dyspnea Gastrointestinal Gastrointestinal: Denies abdominal pain, Denies nausea and Denies vomiting Musculoskeletal Musculoskeletal: Denies joint swelling PFSH <Howard Mishra MD - Last Filed: 07/23/19 07:28> Social History Smoking/Tobacco Use Status: Former Tobacco Use Alcohol Intake: current Alcohol Intake frequency: holidays/special occasions only Drug use: Never Substance use type: does not use Do you feel safe in your relationship?: Yes Exam <Howard Mishra MD - Last Filed: 07/23/19 07:28> Const General: no acute distress Orientation: alert HENMT Head: normal to inspection Ears: external ears normal General nose exam: external nose normal Mouth: moist mucous membranes Eyes General: appearance normal, both eyes and all related structures Neck Neck: normal visual inspection Resp Effort & Inspection: normal respiratory effort and able to speak in complete sentences Cardio Rate: regular rate GI Palpation: soft and nontender Skin General skin exam: no rashes or lesions noted Neuro General: alert and oriented x3 Extrem General: normal to inspection Psych Mental Status: mental status grossly normal Sign Out <Howard Mishra MD - Last Filed: 07/23/19 07:28> Sign Out Data: Sign Out Comment: follow up on labs and cxr, if all negative and repeat troponin/ekg unchanged likely can be d/c'd. Last updated by Howard Mishra MD at 07/23/19 07:30
[2019-07-23] MEDS: Aspirin 81 MG CHEW 324 MG CH (07:30)
[2019-07-23] MEDS: Normal Saline Flush 10 ML SYR IVP (07:39)
[2019-07-23 07:44] LABS: Abs Immature Grans 0.01 k/cumm (0.0-0.09); Absolute Basophil Count 0.04 k/cumm (0.0-0.2); Absolute Lymphocyte Count 1.35 k/cumm (1.2-3.4); Absolute Monocyte Count 0.59 k/cumm (0.11-0.7); Absolute Neutrophil Count 5.59 k/cumm (1.2-6.7); Basophils % 0.5; Eosinophils % 2.6; HCT 38.5 % (36.0-46.0); HGB 12.6 g/dL (12.0-15.5); Immature Grans % 0.1 %; Lymphocytes % 17.4; Mean Corp. HGB Concentration 32.7 g/dL (32.0-36.0); Mean Corpuscular Hemoglobin 29.9 pg (27.0-33.0); Mean Corpuscular Volume 91.4 fL (80-95); Mean Platelet Volume 10.1 fL (8.0-11.0); Monocytes % 7.6; Neutrophils % 71.8; Platelet Count 256 x1000/uL (130-400); RBC 4.21 m/cumm (4.00-5.20); White Blood Cell Count 7.78 k/cumm (4.4-10.8)
[2019-07-23 07:59] LABS: Lipase 211 U/L (73-393)
[2019-07-23 08:00] LABS: ALT 30 U/L (14-59); AST 71 U/L (15-37); Albumin 3.4 g/dL (3.4-5.0); Alkaline Phosphatase 85 U/L (46-116); Anion Gap 8.3 mmol/L (3-11); BUN 17 mg/dL (7-18); Bilirubin, Total 0.6 mg/dL (0.2-1.0); CO2 25.7 mmol/L (21.0-32.0); CREATININE 0.86 mg/dL (0.55-1.02); Chloride 106 mmol/L (98-107); Glucose 100 mg/dL (74-106); Potassium 3.6 mmol/L (3.5-5.1); Sodium 140 mmol/L (136-145); Total Protein 7.4 g/dL (6.4-8.2)
[2019-07-23 08:01] LABS: Troponin I < 0.05 ng/Ml (<0.06)
--- NOTE | 2019-07-23 08:38 | DI.VRAD_ITS ---
PROCEDURE INFORMATION: Exam: XR Chest, 2 Views Exam date and time: 07/23/2019 7:49 AM Age: 59 years old Clinical indication: Other: Chest pain TECHNIQUE: Imaging protocol: XR of the chest Views: 2 views. COMPARISON: CR XR CHEST 2V PA LATERAL 07/06/2019 12:21 PM FINDINGS: Lungs: Mild interstitial prominence again visualized. No consolidation. Mild bronchial wall thickening. Pleural space: No pleural effusion. No pneumothorax. Heart/Mediastinum: Cardiomediastinal structures are stable. Bones/joints: Osseous structures are unchanged. IMPRESSION: Mild interstitial lung disease and bronchial wall thickening. Dictated and Authenticated by: Slime Marshall MD. Ordering:ELISABETH Lawrence MD
[2019-07-23 08:53] LABS: D-Dimer 1036 ng/mlFEU (<500)
--- NOTE | 2019-07-23 09:00 | DI.CT_ITS ---
EXAM: CT CHEST PE CTA CLINICAL HISTORY: chest pain this am, elev ddimer TECHNIQUE: CT angiography of the chest was performed with a bolus infusion of 71 cc of Omnipaque [address] angiography was performed with multi-slice acquisition and multi-planar and/or 3D reconstruc tions. COMPARISON: ABD PELVIS WITH CONTRAST from 04/06/2010 FINDINGS: Images obtained through the upper abdomen show unremarkable appearance of visualized portions of janet er, spleen and pancreas. There is no evidence of pulmonary embolic disease. No thoracic aortic aneurysm or dissection. Trach eobronchial tree appears intact. No mediastinal or hilar adenopathy. The lungs are predominantly cl ear with some perihilar interstitial changes, probably chronic. No evidence of acute consolidation. No significant pleural effusion or pneumothorax. IMPRESSION: No evidence of pulmonary embolic disease. Chronic pulmonary interstitial changes.
[2019-07-23] MEDS: Omnipaque 350 MG/ML 100 ML BTL 71 ML IJ (09:47)
[2019-07-23 10:49] LABS: Troponin I < 0.05 ng/Ml (<0.06)
--- NOTE | 2019-07-23 10:55 | DI.VRAD_ITS ---
PROCEDURE INFORMATION: Exam: CT Angiography Chest With Contrast Exam date and time: 07/23/2019 9:37 AM Age: 59 years old Clinical indication: Shortness of breath; Prior surgery; Surgery date: 6+ months; Surgery type: Breast implants 2+ years ago; Patient HX: [facility] 1 year ago TECHNIQUE: Imaging protocol: Computed tomographic angiography of the chest with intravenous contrast. 3D rendering: MIP and/or 3D reconstructed images were created by the technologist. Contrast material: OMNIPAQUE 350; Contrast volume: 71 ml; Contrast route: RAC; Other contrast: Catheter; COMPARISON: CT CHEST WO 06/26/2018 6:40 AM FINDINGS: Pulmonary arteries: No pulmonary emboli. Aorta: No aortic aneurysm. No aortic dissection. Lungs: Mild mosaic attenuation in the right middle lobe as seen with small airways disease. Mild interstitial lung disease. No consolidation. Pleural space: No pneumothorax. No pleural effusion. Heart: No cardiomegaly. No pericardial effusion. Mediastinum: Underdistention versus mild thickening of the distal esophagus. Stomach and bowel: Colonic diverticulosis in the left upper quadrant. Lymph nodes: 1.5 cm right hilar lymph node. Bones/joints: Degenerative changes. Soft tissues: Bilateral breast implants. IMPRESSION: 1. No definite CT findings to suggest acute pulmonary embolism. 2. Mild interstitial lung disease may represent infectious vs inflammatory process or early pulmonary edema. Dictated and Authenticated by: Slime Marshall MD. Ordering:ADI Bae MD
== END 2019-07-23 11:09 | disposition home or self-care (01) ==
PROVIDERS: Emergency Medicine; Emergency Provider Emergency Medicine; PCP Nurse Practitioner Family
DX: R07.89 Other chest pain (principal); R05 Cough
CPT/HCPCS: 71275; 80053; 83690; 93005; 99285; 71046; 83735; 84484; 85025; 85379; 93010; 99284; J3490

== ENCOUNTER 2020-02-04 11:29 | Emergency (ER) | payer OTHER, SELFPAY ==
[2020-02-04 11:39] VITALS: BP 140/76; PULSE 64; RESP 16; TEMP 36.5; O2SAT 97
--- NOTE | 2020-02-04 12:30 | DI.US_ITS ---
EXAM: US LOWER EXTREMITY VENOUS RT CLINICAL HISTORY: Atraumatic pain behind knee. TECHNIQUE: Lower extremity venous ultrasound performed using grayscale, color-flow, and spectral Do ppler analysis. COMPARISON: No exams were available for comparison FINDINGS: The common femoral, femoral and popliteal veins demonstrate normal compressibility, augmentation, and color Doppler. The posterior tibial veins are patent. No saphenous vein thrombosis or other superfi cial venous thrombosis is seen. No hematoma or Brito's cyst is seen. IMPRESSION: Negative lower extremity ultrasound. No evidence of DVT. DATA REPOSITORY:
--- NOTE | 2020-02-04 13:50 | DI.VRAD_ITS ---
PROCEDURE INFORMATION: Exam: US Duplex Right Lower Extremity Veins, Limited Exam date and time: 02/04/2020 1:38 PM Age: 59 years old Clinical indication: Other: Pain behind right knee TECHNIQUE: Imaging protocol: Real-time Duplex ultrasound of the Right Lower Extremity with 2-D anton scale, color Doppler flow and spectral waveform analysis with image documentation. Limited exam was focused on the right lower extremity veins. COMPARISON: No relevant prior studies available. FINDINGS: Right deep veins: Unremarkable. The common femoral, femoral, proximal profunda femoral and popliteal veins are patent without thrombus. Normal Doppler waveforms. Normal compressibility and/or augmentation response. Right superficial veins: Unremarkable. Saphenofemoral junction is patent without thrombus. Soft tissues: Unremarkable. There is no Brito's cyst/popliteal cyst. IMPRESSION: No evidence of deep vein thrombosis. Dictated and Authenticated by: Jose Hill MD. Ordering:JH Weiss MD
--- NOTE | 2020-02-04 13:54 | W.ED.GENAD ---
Discharge Plan Disposition Patient Disposition: HOME Condition: Stable Discharge Details Chief Complaint: Orthopedic Clinical Impression: Knee pain Primary Care Provider: Leland Echavarria ED Provider: Abhishek Schwartz Home Meds and New Rx's Prescriptions: Continued lorazepam 0.5 MG tablet 0.5 mg PO PRN RF: 0 Sertraline HCl [Zoloft] 100 MG tablet 100 mg PO DAILY RF: 0 Discharge Instructions Instructions: Knee Pain (ED) Additional Instructions: At this time ultrasound is negative for DVT and/or Brito's cyst. As we discussed I recommend using [id number] Tylenol and/or Motrin as directed for discomfort. Cool and/or warm compresses every 2 hours for 20 minutes. Rest, elevate. You may find that wearing an Angelo wrap or neoprene sleeve as tolerated will also be beneficial. Please watch for new or worsening symptoms and return to the ER for any concerns. If you do not receive moderate relief in the next week with conservative therapy I do believe reevaluation to your primary care provider or orthopedics is reasonable. Discharge Data Discharge Date/Time-TO BE ENTERED AT DEPARTURE: 02/04/20 14:10 Medical Decision Making 59-year-old female presenting from urgent care for DVT rule out. Clinically this appears to be more musculoskeletal in nature. Potential Brito's cyst. There is no erythema, warmth, swelling, negative Homans sign. Knee has full range of motion. We discussed our options, clinically there is no indication for x-ray. Patient is comfortable this plan. Given this is a holiday weekend unfortunately we do not have ultrasound today or tomorrow. I will contact radiology to see if they can call anyone in. Likely we are able to get an plant maintenance technician come for evaluation. Ultrasound negative. Discussed findings with patient. She is relieved. We discussed options and she is comfortable with conservative therapy such as resting, cool and/or warm compresses, [id number] Tylenol and/or Motrin, Angelo wrap or neoprene sleeve. She was encouraged to watch for new or worsening symptoms and return to the ER for any concerns otherwise recheck to her primary care provider or orthopedic in 1 week if she is not getting resolution of her symptoms with more conservative care. Medical Records Medical records reviewed: Yes I reviewed the patient's medical records. Imaging Data Radiologic Study: Attestation: I personally reviewed and interpreted this imaging study as follows: Imaging: Ultrasound Radiologist's impression: Right lower extremity venous ultrasound read by radiology as negative HPI General Mode of arrival: ambulatory. Date/Time Provider Initiated Documentation: 02/04/20 12:36. Limitations to Documentation: no limitations. Information obtained by: patient. HPI Narrative: This is a 59-year-old female who reports history of migraines, anxiety, depression, sent to the ER for evaluation of right knee pain and a DVT rule out. She reports right posterior knee pain, mild, throbbing in nature this is been present for nearly 1-1/2 weeks, atraumatic in nature. She reports the pain is worse with lateral movement. She denies history of DVT or PE. Denies chest pain, shortness of breath, skin rash, swelling of her calf, pain in her calf. Denies recent travel Related Data Home Medications Medication Instructions Recorded Confirmed Sertraline HCl [Zoloft] 100 mg PO DAILY tab-cap NS 11/30/17 02/04/20 lorazepam 0.5 mg PO PRN NS 11/30/17 02/04/20 Allergies Allergy/AdvReac Type Severity Reaction Status Date / Time citalopram [From Celexa] Allergy panic Verified 02/04/20 11:41 attacks paroxetine [From Paxil] AdvReac Intermediate panic Verified 02/04/20 11:41 attack season Allergy Mild Uncoded 02/04/20 11:41 General Stated Complaint: Orthopedic SHARONDA: 3 Review of Systems Constitutional Constitutional: Denies fever(s) and Denies weakness Cardiovascular Cardiovascular: Denies chest pain and Denies dyspnea Respiratory Respiratory: Denies cough and Denies dyspnea Gastrointestinal Gastrointestinal: Denies abdominal pain, Denies nausea and Denies vomiting Musculoskeletal Musculoskeletal: Reports arthralgias, Denies numbness, Reports stiffness and Denies tingling Integumentary/Breasts Skin/Breast: Denies rash Neurologic Neurologic: Denies numbness, Denies tingling and Denies weakness [facility] Medical History Anxiety (Chronic 11/30/17) Atypical squamous cells of undetermined significance (ASC-US) on cervical Pap smear (Chronic 03/25/17) HR HPV negative 2016 2015 NILM/(+)HR HPV Depression (Chronic 11/30/17) Left bundle branch block (LBBB) on electrocardiogram (Chronic) ECHO done 02/28/18 EF 50%, No aortic stenosis Migraine without status migrainosus, not intractable (Chronic 11/30/17) Rosacea (Chronic 11/30/17) Surgical History H/O breast augmentation (Inactive) H/O rhinoplasty (Inactive) History of bilateral carpal tunnel release (Inactive) Social History Smoking/Tobacco Use Status: Former Tobacco Use Alcohol Intake: current Alcohol Intake frequency: holidays/special occasions only Drug use: Never Substance use type: does not use Do you feel safe at home: Yes Do you feel safe in your relationship?: Yes Exam Const General: cooperative, healthy appearing, comfortable and no acute distress Orientation: alert, awake and oriented x3 HENMT Head: normal to inspection, normocephalic and atraumatic Mouth: moist mucous membranes Eyes Conjunctivae: conjunctivae normal Neck Neck: normal visual inspection, full ROM, trachea midline and supple Resp Effort & Inspection: normal respiratory effort and able to speak in complete sentences Auscultation: clear to auscultation bilaterally Cardio Rate: regular rate Rhythm: regular rhythm Skin General skin exam: no rashes or lesions noted Neuro General: patient alert, patient awake, moves all extremities and no focal motor deficits Speech: speech normal Gait: normal gait Motor: muscle tone normal throughout and strength 5/5 throughout Sensory Exam: no sensory deficits noted Extrem Right upper extremity: normal to inspection, full ROM and normal capillary refill Left upper extremity: normal to inspection, full ROM and normal capillary refill Right lower extremity: normal to inspection, full ROM, normal capillary refill and knee Details: tenderness (Diffuse posterior aspect), normal ROM, knee ligament exam normal and other (Negative Homans sign); no swelling and no unusual warmth Left lower extremity: normal to inspection, full ROM and normal capillary refill Psych Appearance: grossly normal Mental Status: mental status grossly normal Course Vital Signs Vital signs: Vital Signs Temperature 36.5 C 02/04/20 11:39 Pulse 64 02/04/20 11:39 Respiratory Rate 16 02/04/20 11:39 Blood Pressure 140/76 02/04/20 11:39 Pulse Oximetry 97 02/04/20 11:39 Temperature 36.5 C 02/04/20 11:39 Temperature Source Skin 02/04/20 11:39 Pulse 64 02/04/20 11:39 Respiratory Rate 16 02/04/20 11:39 Respiratory Effort Non-Labored 02/04/20 11:42 Blood Pressure 140/76 02/04/20 11:39 Blood Pressure Position Sitting 02/04/20 11:39 Pulse Oximetry 97 02/04/20 11:39 Oxygen Delivery Method Room Air 02/04/20 11:39 Oxygen Flow Rate 0 02/04/20 11:39 Pain Level 6 02/04/20 13:38 Comment 02/04/20 11:39
== END 2020-02-04 14:10 | disposition home or self-care (01) ==
PROVIDERS: Emergency Provider Physician Assistant; PCP Nurse Practitioner Family
DX: M25.561 Pain in right knee (principal)
CPT/HCPCS: 99284; 93971

== ENCOUNTER 2020-02-12 12:43 | Outpatient (CLI) | payer OTHER, SELFPAY ==
--- NOTE | 2020-02-12 11:50 | DI.RAD_ITS ---
EXAM: XR KNEE RT 3V AP,LAT,MARILUZ CLINICAL HISTORY: ACUTE RT KNEE PAIN, M25.561 TECHNIQUE: COMPARISON: No exams were available for comparison FINDINGS: Three views were obtained. No bony or soft tissue abnormality seen. Alignment appears within normal limits. IMPRESSION: RADIATION DOSE DELIVERED: Total DLP
== END 2020-02-12 13:03 ==
PROVIDERS: PCP Nurse Practitioner Family; Visit Provider Nurse Practitioner Family
DX: M25.561 Pain in right knee (principal)
CPT/HCPCS: 73562

== ENCOUNTER 2020-10-04 14:11 | Outpatient (REF) | payer OTHER, SELFPAY ==
--- NOTE | 2020-10-04 13:20 | PAPFT_PTH ---
PATIENT: Yara Lawton LOC: [facility]#:[id number] AGE/SX: 60/F ROOM: RE10/04/[address]: Leland Echavarria : 1960 BED: DIS: 10/04/2020 SPEC #: [id number] RECD: 10/04/20 17:02 STATUS: ROCIO HUYNH #: [id number] GRAHAM: 10/04/20 13:[address]: Leland Echavarria DEPT: [facility] Cytology RECD BY: Zahra Hyde Tissues: 1 - CX/ENDOCX FOR PAP SMEARS Procedures: PAP THIN PREP/UVM Screening HPV DNA PROBE Comments: [id number]
--- NOTE | 2020-10-04 13:35 | SKI_PTH ---
PATIENT: Yara Lawton LOC: [facility] #:[id number] AGE/SX: 60/F ROOM: RE10/04/[address]: Leland Echavarria : 1960 BED: DIS: 10/04/2020 SPEC #: [id number] RECD: 10/04/20 16:54 STATUS: ROCIO HUYNH #: [id number] GRAHAM: 10/04/20 13:[address]: Leland Echavarria DEPT: Surgical Specimen RECD BY: Zahra Hyde Tissues: 1 - SKIN BIOPSY(SHAVE/PUNCH) Procedures: SKIN LEVEL 4 Comments: [id number]
== END 2020-10-04 14:12 | disposition home or self-care (01) ==
LOC: NCHCN 14:11
PROVIDERS: PCP Nurse Practitioner Family; Visit Provider Nurse Practitioner Family
DX: L82.0 Inflamed seborrheic keratosis (principal); Z12.4 Encounter for screening for malignant neoplasm of cervix; Z11.51 Encounter for screening for human papillomavirus (HPV); Z00.00 Encounter for general adult medical examination without abnormal findings
CPT/HCPCS: 88142; 87624; 88305

== ENCOUNTER 2021-12-05 21:08 | Outpatient (REF) | payer OTHER, SELFPAY ==
[2021-12-05 21:24] LABS: Bilirubin Negative (Negative); Blood Small (Negative); Clarity Sl Cloudy (Clear); Glucose Negative (Negative); Ketones Negative (Negative); Leukocyte Esterase Small (Negative); Nitrite Positive (Negative); Specific Gravity 1.025 (1.005-1.025); Urobilinogen 0.2 EU/dL (Up TO 0.2); pH 6.5 (5-8)
[2021-12-05 21:41] LABS: Bacteria Many HPF (Negative); C & S Indicated? C&S Done As Ordered; Casts Negative LPF (Negative); Crystals Negative HPF (Negative); Epithelial Cells Few HPF (Negative); Mucus Negative (Negative)
== END 2021-12-05 21:09 | disposition home or self-care (01) ==
LOC: LBN 21:08
PROVIDERS: PCP Nurse Practitioner Family; Visit Provider Physician Assistant Medical
DX: R35.0 Frequency of micturition (principal)
CPT/HCPCS: 87077; 81003; 81015; 87086; 87186

== ENCOUNTER 2022-08-18 15:48 | Outpatient (REF) | payer OTHER, SELFPAY | END 2022-08-18 15:49 | disposition home or self-care (01) | LOC: NCHCN 15:48 | PROVIDERS: Visit Provider Nurse Practitioner Family | DX: N39.41 Urge incontinence (principal) | CPT/HCPCS: 87077; 87086; 87186 ==

== ENCOUNTER 2022-09-15 15:03 | Outpatient (REF) | payer OTHER, SELFPAY ==
[2022-09-15 16:04] LABS: Abs Immature Grans 0.01 10^3/uL (0.0-0.06); Absolute Basophil Count 0.05 10^3/uL (0.0-0.2); Absolute Eosinophil Count 0.12 10^3/uL (0.0-0.7); Absolute Lymphocyte Count 1.76 10^3/uL (1.2-3.4); Absolute Monocyte Count 0.33 10^3/uL (0.1-0.8); Absolute Neutrophil Count 3.44 10^3/uL (1.2-6.7); Basophils % 0.9; Eosinophils % 2.1; HCT 40.7 % (36.0-46.0); HGB 13.4 g/dL (11.2-15.7); Immature Grans % 0.2; Lymphocytes % 30.8; MCH 29.5 pg (27.0-33.0); MCHC 32.9 % (32.0-36.0); MCV 90 fL (80-95); MPV 10.9 fL (8.0-11.0); Monocytes % 5.8; Neutrophils % 60.2; Platelet Count 260 10^3/uL (130-400); RBC 4.54 10^6/uL (3.93-5.22); RDW 12.4 % (11.7-14.6); RDW-SD 40.7 fL; WBC 5.71 10^3/uL (4.4-10.8)
[2022-09-15 16:35] LABS: ALT 23 U/L (14-59); AST 23 U/L (15-37); Albumin 3.7 g/dL (3.4-5.0); Alkaline Phosphatase 89 U/L (46-116); Anion Gap 6.6 mmol/L (3-11); BUN 11 mg/dL (7-18); Bilirubin, Total 0.3 mg/dL (0.2-1.0); CO2 28.4 mmol/L (21.0-32.0); CREATININE 0.9 mg/dL (0.55-1.02); Calcium 8.7 mg/dL (8.5-10.1); Calculated LDL 161 mg/dL (<100); Chloride 105 mmol/L (98-107); Cholesterol 246 mg/dL (<200); Estimated GFR 71.39 (mL/min/1.73m2); Glucose 95 mg/dL (74-106); HDL Cholesterol 43 mg/dL (40-60); Potassium 4.1 mmol/L (3.5-5.1); Sodium 140 mmol/L (136-145); Total Protein 7.9 g/dL (6.4-8.2); Triglyceride 213 mg/dL (<150)
== END 2022-09-15 15:04 | disposition home or self-care (01) ==
LOC: NCHCN 15:03
PROVIDERS: PCP Nurse Practitioner Family; Visit Provider Nurse Practitioner Family
DX: M79.661 Pain in right lower leg (principal); Z13.220 Encounter for screening for lipoid disorders
CPT/HCPCS: 80053; 80061; 85025

== ENCOUNTER 2022-10-01 19:21 | Emergency (ER) | payer OTHER, SELFPAY ==
[2022-10-01] VITALS (19 sets, daily range): BP systolic 95–139; BP diastolic 68–88; PULSE 79–97; RESP 12–33; TEMP 36.9; O2SAT 91–100
--- NOTE | 2022-10-01 19:30 | RT.EKG_ITS ---
APPROVED REPORT Exam: Resting ECG Reason for Exam: chest pain Patient Location: E HR:79 bpm ECG Measurements Heart Rate 79 AXIS NM 139 P 35 QRSd 145 QRS 20 QT 439 T 102 QTc 505 Conclusion Sinus rhythm...normal P axis, V-rate 60- 99 Probable left atrial enlargement...P >50mS, <-0.10mV V1 Left bundle branch block...QRSd>120, broad/notched R ST elevation secondary to IVCD...Multiple VCG criteria. Sinus. LBBB. No change from previous. No STEMI. I have reviewed and interpreted ECG and agree with software generated interpretation.
--- NOTE | 2022-10-01 19:45 | DI.CT_ITS ---
Exam(s) CT ABDOMEN PELVIS W EXAM: CT ABDOMEN PELVIS W CLINICAL HISTORY: RLQ abd pain. TECHNIQUE: Imaging Protocol: Axial computed tomography images with coronal and sagittal reformatted images were created and reviewed CONTRAST MATERIAL: Intravenous: Omnipaque-350 100cc Oral: None COMPARISON: CT CT CHEST PE CTA from 07/23/2019 FINDINGS: VISUALIZED LUNG BASES: Mild benign-appearing increased markings in the lung bases. No pleural effusi ons.. Bilateral saline breast implants noted. ABDOMEN: There is no ascites. LIVER: There are no focal hepatic lesions evident. No dilated intrahepatic ducts. GALLBLADDER/BILIARY: Layering noncalcified density in the gallbladder lumen, either irregular sludge or small gallstones. Gallbladder wall does not appear edematous. There is no pericholecystic fluid. CBD is not dilated. PANCREAS: No evidence of pancreatic mass nor dilatation of the pancreatic duct. SPLEEN: Spleen is not enlarged. No obvious intrasplenic lesions. Splenic and portal veins are paten t. ADRENALS: There are no significant adrenal masses. KIDNEYS:No cysts evident. No solid renal masses. No calculi nor hydronephrosis.. ABDOMINAL AORTA: Abdominal aorta is not enlarged. LYMPH NODES:There is no retroperitoneal nor paraaortic adenopathy. ABDOMINAL WALL: No evidence of significant anterior abdominal wall nor inguinal hernia. PELVIS: GI: No evidence of appendicitis.There is diverticulosis in the colon at and distal to the splenic fle xure. There is is abnormal circumferential thickening of the wall of the rectosigmoid see slightly t o the right of center in the pelvis, this over a distance of 4 cm. Some surrounding streaking is not ed. Either related to diverticulitis or malignancy.Requires close follow-up. LYMPH NODES: There is no intrapelvic nor inguinal adenopathy. REPRODUCTIVE: Age-appropriate URINARY BLADDER: No calculi nor obvious masses evident OSSEOUS: No fractures and no significant osseous lesions. Moderate advanced disc space narrowing at L4-5 noted. No listhesis. IMPRESSION: 1. The main acute finding here is in the rectosigmoid where there is an area of circumferential thick ening of the bowel at this level and surrounding streaking. There are multiple diverticuli in the co shantell at and distal to the splenic flexure. Above findings may represent acute diverticulitis although follow-up colonoscopy is recommended to rule out malignancy at this level. There is no evidence of abscess at this time. No free air. 2. Cholelithiasis but no evidence of acute cholecystitis nor dilatation biliary tree. First read by [facility]. Final report called by myself to ER physician 10/02/2022 10:55 a.m.. RADIATION DOSE DELIVERED: 900.85mGy.cm Total DLP DATA REPOSITORY: All CT scans at this facility are submitted to the National Radiology Data Registry (NRDR) Dose Index Registry (DIR) with the [employer] (ACR). RADIATION OPTIMIZATION: All CT scans at this facility use at least one of these dose optimization te chniques: automated exposure control; mA and/or kV adjustment per patient size (includes targeted exa ms where dose is matched to clinical indication); or iterative reconstruction.
[2022-10-01] MEDS: HYDROmorphone 2 MG/ML SYR 1 MG IVP (20:00)
[2022-10-01] MEDS: Ondansetron 4 MG/2 ML VIAL IVP (20:00)
[2022-10-01] MEDS: Normal Saline 1,000 ML 1000 ML IV (20:01)
[2022-10-01 20:09] LABS: Abs Immature Grans 0.04 10^3/uL (0.0-0.06); Absolute Basophil Count 0.04 10^3/uL (0.0-0.2); Absolute Lymphocyte Count 1.29 10^3/uL (1.2-3.4); Absolute Neutrophil Count 11.86 10^3/uL (1.2-6.7); Basophils % 0.3; Eosinophils % 0.4; HCT 39.3 % (36.0-46.0); HGB 13.3 g/dL (11.2-15.7); Immature Grans % 0.3; Lymphocytes % 9.3; MCH 29.7 pg (27.0-33.0); MCHC 33.8 % (32.0-36.0); MCV 88 fL (80-95); MPV 10.5 fL (8.0-11.0); Neutrophils % 85.7; Platelet Count 220 10^3/uL (130-400); RBC 4.48 10^6/uL (3.93-5.22); RDW 12.5 % (11.7-14.6); RDW-SD 39.9 fL; WBC 13.84 10^3/uL (4.4-10.8)
[2022-10-01 20:11] LABS: Absolute Eosinophil Count 0.06 10^3/uL (0.0-0.7); Absolute Monocyte Count 0.55 10^3/uL (0.1-0.8)
[2022-10-01 20:14] LABS: Lipase 34 U/L (16-77)
[2022-10-01] MEDS: Omnipaque 350 MG/ML 100 ML BTL IJ (20:17)
--- NOTE | 2022-10-01 20:17 | ED.GENADUL_ITS ---
Discharge Plan Disposition Patient Disposition: Home Condition: Improving Discharge Details Clinical Impression: Diverticulitis Primary Care Provider: ANA RAMIREZ ED Provider: Cesar Morley Home Meds and New Rx's Prescriptions: New amoxicillin-pot clavulanate 875-125 mg tablet 1 tab PO Q12H 7 Days Qty: 14 0RF Continued lorazepam 0.5 MG tablet 0.5 mg PO PRN Sertraline HCl [Zoloft] 100 MG tablet 100 mg PO DAILY oxybutynin chloride 5 mg tablet extended release 24hr 5 mg PO .QHS Discharge Instructions Instructions: Diverticulitis (ED), Diverticulitis Diet (ED) Additional Instructions: Please take your medication as prescribed and use the narcotic pain medication sparingly only for severe pain and discomfort. Please return to the emergency department immediately for any new or significant worsening of symptoms otherwise follow-up with your primary care provider next week for reassessment of your abdominal pain. Stand Alone Forms: Work Release Referrals: ANA RAMIREZ [Primary Care Provider] - 5 days Discharge Data Discharge Date/Time-TO BE ENTERED AT DEPARTURE: 10/01/22 22:03 Medical Decision Making Patient presenting to the emergency department for chief complaint of right lower abdominal pain. Patient states it was crampy and uncomfortable yesterday but today had subjective fever, vomiting diarrhea dry heaving and worsening pain. Patient denies any history of abdominal surgeries, does state history of diverticulosis. Physical exam shows significant discomfort with palpation of the right lower quadrant otherwise normal active bowel sounds normal cardiac respiratory exam no CVA tenderness. Will perform labs and obtain CT imaging. Pending results we will give patient IV fluids antiemetics and pain medication. Differential diagnosis to include appendicitis, diverticulitis, less likely given age is ovarian torsion. Reviewed patient's labs and patient does have a white count of 13.84 with elevated neutrophils as well, slight increased anion gap of 11.5 with BUN of 20, glucose of 173, magnesium 1.7. LFTs are all within normal range including normal lipase. Urinalysis does show trace amount of blood and ketones with trace leukocyte Estrace. Patient only has 0-2 WBCs and denies any urinary symptoms so we will hold off on treating urine. Review of CT imaging and radiologist interpretation shows acute sigmoid diverticulitis otherwise no other findings noted. No abscess or perforation was noted. Reassessed patient patient did state significant improvement in discomfort. We will give patient IV dose of Zosyn with plan to then p.o. challenge patient and if tolerating will discharge patient on Augmentin and will also give patient to go meds for nausea and pain. Patient was able to tolerate p.o. intake so we will discharge patient with plan as described above. Informed patient to have a low threshold to return for significant worsening symptoms otherwise will patient follow-up with primary c are provider next week. After discussion of diagnosis and plan of care patient has no further needs, questions, or concerns and states clear understanding to return to the emergency department for any worsening symptoms. This documentation was generated using [employer] dictation system, please disregard any oddities of phrase or misspellings. Imaging Data Radiologic Study: Imaging: CT Scan Radiologist's impression: Exam(s) PROCEDURE INFORMATION: Exam: CT Abdomen And Pelvis With Contrast Exam date and time: 10/01/2022 8:17 PM Age: 62 years old Clinical indication: Other: Rlq pain TECHNIQUE: Imaging protocol: Computed tomography of the abdomen and pelvis with contrast. Contrast material: 350; Contrast volume: 100 ml; Contrast route: INTRAVENOUS (IV); COMPARISON: CT CHEST WO 06/26/2018 6:40 AM FINDINGS: Lungs: Moderate bronchiectasis of the lung bases consistent with COPD. Bilateral lung base features of linear scarring or mild atelectasis. No acute infiltrates. Pleural spaces: No pleural effusion. Heart: Normal heart size. No pericardial effusion. No coronary artery atherosclerotic calcium. Liver: Diffuse moderate fatty liver change. Gallbladder and bile ducts: Gallstones. No acute biliary tract findings. Pancreas: The pancreas is normal in contour and attenuation. Spleen: The spleen is normal in size, contour and attenuation. Adrenal glands: The adrenal glands are normal in size and contour bilaterally. Kidneys and ureters: The kidneys bilaterally are unremarkable. Normal attenutation. No hydronephrosis. No calculi. Stomach and bowel: Gastric morphology is unremarkable. No edema. No gastric outlet obstruction. Small to moderate sliding hiatal hernia without acute features. Small bowel loops are normal in course. No small bowel edema or obstructive change. Large bowel is normal in course. There is diffuse diverticulosis. There is acute inflammation of the distal sigmoid colon with bowel wall thickening, appearance of inflamed diverticulum, and adjacent fatty stranding. Findings are consistent with acute sigmoid diverticulitis. There is no abscess evident. There is no free air. Appendix: No evidence of appendicitis. Intraperitoneal space: Minor nonspecific free fluid in the low posterior pelvic cul-de-sac. This appears to be simple fluid by attenuation. Vasculature: Unremarkable. No abdominal aortic aneurysm. Lymph nodes: Unremarkable. No enlarged lymph nodes. Urinary bladder: Unremarkable as visualized. Reproductive: Unremarkable as visualized. Bones/joints: Unremarkable. No acute fracture. Soft tissues: Abdominal wall soft tissues are unremarkable. Lower anterior thoracic soft tissues showing bilateral breast implants. Unremarkable in appearance with limited visualization. IMPRESSION: 1. Acute sigmoid diverticulitis. No evidence of perforation. No abscess. No mechanical bowel obstruction. 2. Gallstones. 3. COPD of the lung bases. 4. Degenerative lumbar spine. Lab Data Lab results reviewed: Yes I reviewed the patient's lab results. HPI General Mode of arrival: ambulatory . Date/Time Provider Initiated Documentation: 10/01/22 19:45 . Limitations to Documentation: no limitations . Information obtained by: patient and RN notes reviewed . History of Present Illness 62 year old F presents to the emergency department with the chief complaint of Right lower quadrant abdominal pain, described as moderate and severe, with intensity rated at 9. Quality is described as aching and sharp, and is localized to the abdomen. Patient started experiencing this day(s) (1) and it has been constant. No relieving factors improve symptom(s), No exacerbating factors reported . Patient notes nausea/vomiting. Patient did receive the following treatments prior to arrival, none Related Data Home Medications Medication Instructions Recorded Confirmed Sertraline HCl [Zoloft] 100 mg PO DAILY 11/30/17 10/03/22 lorazepam 0.5 mg tablet 0.5 mg PO PRN 11/30/17 10/03/22 amoxicillin 875 mg-potassium 1 tab PO Q12H 7 days #14 tabs 10/01/22 10/03/22 clavulanate 125 mg tablet oxybutynin chloride 5 mg 5 mg PO .QHS 10/01/22 10/03/22 tablet,extended release 24 hr Previous Rx's Medication Instructions Recorded amoxicillin 875 mg-potassium 1 tab PO Q12H 7 days #14 tabs 10/01/22 clavulanate 125 mg tablet Allergies Allergy/AdvReac Type Severity Reaction Status Date / Time erythromycin base Allergy Intermediate Hives Unverified 10/03/22 13:36 citalopram [From Celexa] Allergy panic Verified 10/03/22 09:51 attacks paroxetine [From Paxil] AdvReac Intermediate panic Verified 10/03/22 09:51 attack season Allergy Mild Uncoded 10/03/22 09:51 General Stated Complaint: GenMedical SHARONDA: 2 Review of Systems Constitutional Constitutional: Denies chills, Reports fever(s) and Reports poor appetite Cardiovascular Cardiovascular: Denies chest pain and Denies dyspnea Respiratory Respiratory: Denies cough and Denies dyspnea Gastrointestinal Gastrointestinal: Reports as per HPI, Reports abdominal pain, Denies melena, Denies change in bowel habits, Denies constipation, Reports diarrhea, Reports nausea and Reports vomiting Genitourinary Genitourinary: Denies hematuria, Denies urinary incontinence, Denies urinary hesitancy and Denies urinary urgency Integumentary/Breasts Skin/Breast: Denies rash PFSH All Active Problems Chest pain (Acute) Diverticulitis (Chronic) Acute diverticulitis (Acute) Perforation bowel (Acute) Colorectal polyp detected on colonoscopy (Acute) Diverticulosis large intestine w/o perforation or abscess w/o bleeding (Acute) Rosacea (Chronic 11/30/17) Migraine without status migrainosus, not intractable (Chronic 11/30/17) Depression (Chronic 11/30/17) Atypical squamous cells of undetermined significance (ASC-US) on cervical Pap smear (Chronic 03/25/17) HR HPV negative 2016 2015 NILM/(+)HR HPV Anxiety (Chronic 11/30/17) Medical History Left bundle branch block (LBBB) on electrocardiogram ECHO done 02/28/18 EF 50%, No aortic stenosis Surgical History H/O breast augmentation H/O rhinoplasty History of bilateral carpal tunnel release Social History Smoking/Tobacco Use Status: Former Tobacco Use Smoking risk assessment performed?: Yes Alcohol Intake: current Alcohol Intake frequency: holidays/special occasions only Drug use: Never Substance use type: does not use Do you feel safe at home: Yes Do you feel safe in your relationship?: Yes Exam Const General: cooperative Orientation: alert, awake and oriented x3 Resp Effort & Inspection: normal respiratory effort and able to speak in complete sentences Auscultation: clear to auscultation bilaterally Cardio Rate: regular rate Rhythm: regular rhythm Heart Sounds: S1 normal and S2 normal GI Palpation: soft, no hepatosplenomegaly, guarding in the RLQ, no masses, no pulsatile masses, not rigid, no splenomegaly and tender in the RLQ and at McBurney's point Auscultation: normal bowel sounds Back/Spine/Pelvis Back: no CVA tenderness Neuro General: patient alert, patient awake, patient oriented x3, gait normal and moves all extremities Course Vital Signs Vital signs: Vital Signs Temperature 36.9 C 10/01/22 19:35 Pulse 84 10/01/22 19:35 Respiratory Rate 27 H 10/01/22 19:35 Blood Pressure 129/72 10/01/22 19:35 Pulse Oximetry 100 10/01/22 19:35 Temperature 36.9 C 10/01/22 19:35 Pulse 84 10/01/22 19:35 Respiratory Rate 27 H 10/01/22 19:35 Respiratory Effort Normal 10/01/22 19:35 Blood Pressure 129/72 10/01/22 19:35 Blood Pressure Position Sitting 10/01/22 19:35 Pulse Oximetry 100 10/01/22 19:35 Oxygen Delivery Method Room Air 10/01/22 19:35 Oxygen Flow Rate 0 10/01/22 19:35 Pain Level 10 10/01/22 20:00 Lab/Test Results Lab/Test Results: Laboratory Tests Range/Units 10/01/22 10/01/22 19:54 19:54 WBC (4.4-10.8) 10^3/uL 13.84 H RBC (3.93-5.22) 10^6/uL 4.48 Hgb (11.2-15.7) g/dL 13.3 Hct (36.0-46.0) % 39.3 MCV (80-95) fL 88 MCH (27.0-33.0) pg 29.7 MCHC (32.0-36.0) % 33.8 RDW (11.7-14.6) % 12.5 Plt Count (130-400) 10^3/uL 220 MPV (8.0-11.0) fL 10.5 Immature Gran % 0.3 Neutrophils % 85.7 Lymphocytes % 9.3 Monocytes % 4.0 Eosinophils % 0.4 Basophils % 0.3 Nucleated RBC % (0.0-0.3) % 0.0 Absolute Neutrophils (1.2-6.7) 10^3/uL 11.86 H Absolute Lymphocytes (1.2-3.4) 10^3/uL 1.29 Absolute Monocytes (0.1-0.8) 10^3/uL 0.55 Absolute Eosinophils (0.0-0.7) 10^3/uL 0.06 Absolute Basophils (0.0-0.2) 10^3/uL 0.04 Lipase (16-77) U/L 34
[2022-10-01] MEDS: Normal Saline - Diluent 50 ML VIAL IJ (20:18)
[2022-10-01 20:20] LABS: ALT 14 U/L (14-59); AST 16 U/L (15-37); Albumin 3.8 g/dL (3.4-5.0); Alkaline Phosphatase 90 U/L (46-116); Anion Gap 11.5 mmol/L (3-11); BUN 20 mg/dL (7-18); Bilirubin, Total 0.7 mg/dL (0.2-1.0); CO2 24.5 mmol/L (21.0-32.0); CREATININE 0.8 mg/dL (0.55-1.02); Calcium 9.2 mg/dL (8.5-10.1); Chloride 100 mmol/L (98-107); Estimated GFR 82.23 (mL/min/1.73m2); Glucose 173 mg/dL (74-106); Magnesium 1.7 mg/dL (1.8-2.4); Potassium 3.7 mmol/L (3.5-5.1); Sodium 136 mmol/L (136-145); Total Protein 8.1 g/dL (6.4-8.2)
--- NOTE | 2022-10-01 20:51 | DI.VRAD_ITS ---
PROCEDURE INFORMATION: Exam: CT Abdomen And Pelvis With Contrast Exam date and time: 10/01/2022 8:17 PM Age: 62 years old Clinical indication: Other: Rlq pain TECHNIQUE: Imaging protocol: Computed tomography of the abdomen and pelvis with contrast. Contrast material: 350; Contrast volume: 100 ml; Contrast route: INTRAVENOUS (IV); COMPARISON: CT CHEST WO 06/26/2018 6:40 AM FINDINGS: Lungs: Moderate bronchiectasis of the lung bases consistent with COPD. Bilateral lung base features of linear scarring or mild atelectasis. No acute infiltrates. Pleural spaces: No pleural effusion. Heart: Normal heart size. No pericardial effusion. No coronary artery atherosclerotic calcium. Liver: Diffuse moderate fatty liver change. Gallbladder and bile ducts: Gallstones. No acute biliary tract findings. Pancreas: The pancreas is normal in contour and attenuation. Spleen: The spleen is normal in size, contour and attenuation. Adrenal glands: The adrenal glands are normal in size and contour bilaterally. Kidneys and ureters: The kidneys bilaterally are unremarkable. Normal attenutation. No hydronephrosis. No calculi. Stomach and bowel: Gastric morphology is unremarkable. No edema. No gastric outlet obstruction. Small to moderate sliding hiatal hernia without acute features. Small bowel loops are normal in course. No small bowel edema or obstructive change. Large bowel is normal in course. There is diffuse diverticulosis. There is acute inflammation of the distal sigmoid colon with bowel wall thickening, appearance of inflamed diverticulum, and adjacent fatty stranding. Findings are consistent with acute sigmoid diverticulitis. There is no abscess evident. There is no free air. Appendix: No evidence of appendicitis. Intraperitoneal space: Minor nonspecific free fluid in the low posterior pelvic cul-de-sac. This appears to be simple fluid by attenuation. Vasculature: Unremarkable. No abdominal aortic aneurysm. Lymph nodes: Unremarkable. No enlarged lymph nodes. Urinary bladder: Unremarkable as visualized. Reproductive: Unremarkable as visualized. Bones/joints: Unremarkable. No acute fracture. Soft tissues: Abdominal wall soft tissues are unremarkable. Lower anterior thoracic soft tissues showing bilateral breast implants. Unremarkable in appearance with limited visualization. IMPRESSION: 1. Acute sigmoid diverticulitis. No evidence of perforation. No abscess. No mechanical bowel obstruction. 2. Gallstones. 3. COPD of the lung bases. 4. Degenerative lumbar spine. Dictated and Authenticated by: Nixon Gentile MD. Ordering:FELIX Guerrero MD
[2022-10-01] MEDS: PIPERACILLIN/TAZO 4.5 GM in Normal Saline 100 ML IVPB (21:10)
[2022-10-01 21:12] LABS: Bilirubin Negative (Negative); Blood Trace-intact (Negative); Clarity Clear (Clear); Glucose Negative (Negative); Ketones 15 mg/dL (Negative); Leukocyte Esterase Trace (Negative); Nitrite Negative (Negative); Specific Gravity 1.015 (1.005-1.025); Urobilinogen 0.2 mg/dL (Up to 0.2); pH 7.5 (5-8)
[2022-10-01 21:21] LABS: Epithelial Cells Rare HPF (Negative); RBC 0-2 HPF (0-2); WBC 0-2 HPF (0-5)
[2022-10-01 21:22] LABS: Bacteria Rare HPF (Negative); C & S Indicated? Yes; Casts Negative LPF (Negative); Crystals Negative HPF (Negative); Mucus Negative (Negative)
[2022-10-01] MEDS: Amox. 875/Clav. 125, 2 TABS/BTL 1 TAB PO (21:59)
[2022-10-01] MEDS: Ondansetron O.D.T. 4 MG TABEF, 3 TABS/BTL PO (21:59)
--- NOTE | 2022-10-02 11:00 | W.ED.FU ---
Follow Up Plan: I spoke with Dr. Anderson, radiologist, diverticulitis on CT scan but concern for possible malignancy, recommendation for outpatient colonoscopy once completed antibiotics
== END 2022-10-01 22:03 | disposition home or self-care (01) ==
PROVIDERS: Emergency Provider Nurse Practitioner Family; PCP Nurse Practitioner Family
DX: K57.30 Diverticulosis of large intestine without perforation or abscess without bleeding (principal); R07.9 Chest pain, unspecified; R10.31 Right lower quadrant pain
CPT/HCPCS: 80053; 83690; 93005; 96361; 96365; 96375; 99285; 74177; 81003; 81015; 83735; 85025; 87086; 93010; 99284; J1170; J2405; J2543; J3490

== ENCOUNTER 2022-10-03 09:45 | Inpatient (IN) | payer OTHER, SELFPAY ==
[2022-10-03] VITALS (10 sets, daily range): BP systolic 101–124; BP diastolic 54–69; PULSE 72–86; RESP 16–24; TEMP 36.6–37.9; O2SAT 88–98
--- NOTE | 2022-10-03 09:58 | ED.GENADUL_ITS ---
Discharge Plan Disposition Patient Disposition: Admit to [facility] Condition: Stable Discharge Details Clinical Impression: Acute diverticulitis, Perforation bowel, Intestinal diverticular abscess Admit Date/Time: 10/03/22 12:35 Admit Provider: Nir Bradley Attending Provider: Nir Bradley Primary Care Provider: ANA RAMIREZ ED Provider: Cammy Thompson Medical Decision Making 1000 -- 62-year-old female seen here 2 days ago and diagnosed with acute diverticulitis and sent home on Augmentin now presents with worsening pain. Vitals within normal limits. Patient appears uncomfortable but nontoxic. Her abdomen is mild to moderately distended and tender throughout, but mostly worse in the lower quadrants, specifically the right lower quadrant. She has no rigidity, guarding or peritoneal signs. Screening labs were obtained on arrival and noted an increase in her white blood cell count from 13-17. Remainder of electrolytes are reassuring. We will give a dose of IV Tylenol and IV Dilaudid. Will refer for repeat scanning to rule out abscess or other fluid collection. 1115 --discussed with virtual radiology --patient has a suspected right lower quadrant perforation with early abscess formation and extraluminal locule of gas. Case discussed with Dr. Bradley who reviewed imaging and accepts patient for admission here. IV Zosyn ordered. NPO. Patient reassessed and she reported she is feeling better. Her pain has improved from 5/10 to 2/10. She is declining any additional pain medication at this time. Medical Records Medical records reviewed: Yes I reviewed the patient's medical records. Imaging Data Radiologic Study: Radiologist's impression: CT Abdomen And Pelvis With Contrast Exam date and time: 10/03/2022 10:53 AM Age: 62 years old Clinical indication: Other: Lower abdominal pain, diverticulitis diagnosed 10/01/22 TECHNIQUE: Imaging protocol: Computed tomography of the abdomen and pelvis with contrast. Radiation optimization: All CT scans at this facility use at least one of these dose optimization techniques: automated exposure control; mA and/or kV adjustment per patient size (includes targeted exams where dose is matched to clinical indication); or iterative reconstruction. Contrast material: OMNIPAQUE 350; Contrast volume: 100 ml; Contrast route: INTRAVENOUS (IV);? COMPARISON: CT ABDOMEN PELVIS W 10/01/2022 8:17 PM FINDINGS: Bilateral breast prostheses Liver: Normal. No mass. Gallbladder and bile ducts:? Faint calcified stones. No ductal dilation. Pancreas: Normal. No ductal dilation. Spleen: Normal. No splenomegaly. Adrenal glands: Normal. No mass. Kidneys and ureters: Normal. No hydronephrosis. Stomach and bowel:? Colonic diverticulitis in the right lower quadrant/mid sigmoid colon.? Mild small bowel thickening in the right lower quadrant. No obstruction Appendix: No evidence of appendicitis. Intraperitoneal space:? Extensive infiltration/inflammation in the right lower quadrant/right pelvis.? Fluid locule/early abscess formation anteriorly axial image 69 measuring 16 mm.? Additional fluid locule/early abscess in the right lower quadrant measuring 2.7 cm axial image 65. Extraluminal locule of gas suspected axial image 72 measuring 15 mm Vasculature: Unremarkable. No abdominal aortic aneurysm. Lymph nodes: Unremarkable. No enlarged lymph nodes. Urinary bladder: Unremarkable as visualized. Reproductive: Unremarkable as visualized. Bones/joints: Unremarkable. No acute fracture. Soft tissues: Unremarkable. IMPRESSION: Suspected right lower quadrant perforation in this patient with known diverticulitis. Early abscess formations as noted Lab Data Lab results reviewed: Yes I reviewed the patient's lab results. Labs: Laboratory Tests Range/Units 10/03/22 10/03/22 10:00 10:00 WBC (4.4-10.8) 10^3/uL 17.24 H RBC (3.93-5.22) 10^6/uL 4.02 Hgb (11.2-15.7) g/dL 12.0 Hct (36.0-46.0) % 36.3 MCV (80-95) fL 90 MCH (27.0-33.0) pg 29.9 MCHC (32.0-36.0) % 33.1 RDW (11.7-14.6) % 13.2 Plt Count (130-400) 10^3/uL 200 MPV (8.0-11.0) fL 10.0 Immature Gran % 0.8 Neutrophils % 90.6 Lymphocytes % 5.0 Monocytes % 3.3 Eosinophils % 0.1 Basophils % 0.2 Nucleated RBC % (0.0-0.3) % 0.0 Absolute Neutrophils (1.2-6.7) 10^3/uL 15.62 H Absolute Lymphocytes (1.2-3.4) 10^3/uL 0.86 L Absolute Monocytes (0.1-0.8) 10^3/uL 0.57 Absolute Eosinophils (0.0-0.7) 10^3/uL 0.02 Absolute Basophils (0.0-0.2) 10^3/uL 0.03 Sodium (136-145) mmol/L 136 Potassium (3.5-5.1) mmol/L 3.6 Chloride (98-107) mmol/L 101 Carbon Dioxide (21.0-32.0) mmol/L 27.1 Anion Gap (3-11) mmol/L 7.9 BUN (7-18) mg/dL 16 Creatinine (0.55-1.02) mg/dL 0.9 Est GFR (CKD-EPI 2020) (mL/min/1.73m2) 71.39 Glucose (74-106) mg/dL 139 H Calcium (8.5-10.1) mg/dL 8.9 Total Bilirubin (0.2-1.0) mg/dL 0.9 AST (15-37) U/L 10 L ALT (14-59) U/L 12 L Alkaline Phosphatase (46-116) U/L 83 Total Protein (6.4-8.2) g/dL 7.5 Albumin (3.4-5.0) g/dL 2.9 L Lipase (16-77) U/L 22 HPI General Mode of arrival: ambulatory . Date/Time Provider Initiated Documentation: 10/03/22 09:56 . Limitations to Documentation: no limitations . Information obtained by: patient . HPI Narrative: Patient is a 62-year-old female with a history of anxiety, depression, chronic urinary incontinence who presents for persistent and slightly worsening abdominal pain for the past 2 days after being seen here on 10/01/2022 for abdominal pain for 1 day and diagnosed with acute diverticulitis and sent home on Augmentin. She states she has been taking antibiotic as prescribed. She describes the abdominal pain as constant, achy and occasionally sharp and usually worse with any movement. She states the pain is mainly been across her lower abdomen but is now worse in her right lower quadrant. She took an oxycodone last night with some relief but has not taken any medication for pain today. She states she felt warm but did not take her temperature. She last had a bowel movement 2 days ago which she states was loose and brown. Denies any rectal bleeding. She had an episode of vomiting yesterday which was bilious. She did drink liza azra and had broth today. Related Data Home Medications Medication Instructions Recorded Confirmed Sertraline HCl [Zoloft] 100 mg PO DAILY 11/30/17 10/03/22 lorazepam 0.5 mg tablet 0.5 mg PO PRN 11/30/17 10/03/22 amoxicillin 875 mg-potassium 1 tab PO Q12H 7 days #14 tabs 10/01/22 10/03/22 clavulanate 125 mg tablet oxybutynin chloride 5 mg 5 mg PO .QHS 10/01/22 10/03/22 tablet,extended release 24 hr Previous Rx's Medication Instructions Recorded amoxicillin 875 mg-potassium 1 tab PO Q12H 7 days #14 tabs 10/01/22 clavulanate 125 mg tablet Allergies Allergy/AdvReac Type Severity Reaction Status Date / Time erythromycin base Allergy Intermediate Hives Unverified 10/03/22 13:36 citalopram [From Celexa] Allergy panic Verified 10/03/22 09:51 attacks paroxetine [From Paxil] AdvReac Intermediate panic Verified 10/03/22 09:51 attack season Allergy Mild Uncoded 10/03/22 09:51 General Stated Complaint: Abd Prob SHARONDA: 3 Review of Systems All systems reviewed & are unremarkable except as noted in HPI and below Constitutional Constitutional: Reports as per HPI, Denies chills and Denies fever(s) Eyes Eyes: Denies blurry vision ENT Ears, Nose, Mouth, and Throat: Denies dizziness, Denies sore throat and Denies throat swelling Cardiovascular Cardiovascular: Denies chest pain and Denies dyspnea Respiratory Respiratory: Denies cough and Denies dyspnea Gastrointestinal Gastrointestinal: Reports abdominal pain, Reports diarrhea, Reports nausea and Denies vomiting Genitourinary Genitourinary: Denies hematuria and Denies dysuria Musculoskeletal Musculoskeletal: Denies back pain and Denies numbness Integumentary/Breasts Skin/Breast: Denies lesions and Denies rash Neurologic Neurologic: Denies dizziness, Denies localized weakness and Denies numbness Allergic/Immunologic Allergic/Immunologic: Denies throat swelling PFSH All Active Problems (Updated 10/03/22 @ 18:50 by Cammy Thompson DO) Intestinal diverticular abscess (Acute) Chest pain (Acute) Diverticulitis (Chronic) Acute diverticulitis (Acute) Perforation bowel (Acute) Colorectal polyp detected on colonoscopy (Acute) Diverticulosis large intestine w/o perforation or abscess w/o bleeding (Acute) Rosacea (Chronic 11/30/17) Migraine without status migrainosus, not intractable (Chronic 11/30/17) Depression (Chronic 11/30/17) Atypical squamous cells of undetermined significance (ASC-US) on cervical Pap smear (Chronic 03/25/17) HR HPV negative 2016 2015 NILM/(+)HR HPV Anxiety (Chronic 11/30/17) Medical History (Updated 10/03/22 @ 18:50 by Cammy Thompson DO) Left bundle branch block (LBBB) on electrocardiogram ECHO done 02/28/18 EF 50%, No aortic stenosis Surgical History H/O breast augmentation H/O rhinoplasty History of bilateral carpal tunnel release Social History Smoking/Tobacco Use Status: Former Tobacco Use Smoking risk assessment performed?: Yes Alcohol Intake: current Alcohol Intake frequency: holidays/special occasions only Drug use: Never Substance use type: does not use Do you feel safe at home: Yes Do you feel safe in your relationship?: Yes Exam Const General: cooperative, healthy appearing and no acute distress HENMT Head: normal to inspection Eyes General: appearance normal, both eyes and all related structures Pupils: PERRL EOM: EOM intact bilaterally Neck Neck: normal visual inspection and No submandibular swelling Lymphatic: no lymphadenopathy noted Chest Chest: normal inspection of the chest and no tenderness Resp Effort & Inspection: normal respiratory effort and able to speak in complete sentences Auscultation: clear to auscultation bilaterally Cardio Rate: regular rate Rhythm: regular rhythm GI Inspection: normal to inspection and distended (mild-moderate) Palpation: soft, not firm, no guarding, not rigid and tender (Diffuse, worse across lower abdomen, specifically in right lower quadrant.) Auscultation: hypoactive bowel sounds Back/Spine/Pelvis Thoracic/Lumbar Spine: thoracic and lumbar spine normal to inspection Pelvis: no pain with anterior-posterior compression Skin General skin exam: no rashes or lesions noted Neuro General: patient alert, patient awake and patient oriented x3 Cognition: normal cognition Speech: speech normal Motor: muscle tone normal throughout Sensory Exam: no sensory deficits noted Extrem General: normal to inspection, full ROM, capillary refill normal, no calf tenderness bilaterally and no edema Psych Appearance: grossly normal Mental Status: mental status grossly normal Speech and Movement: speech and movement normal Affect: normal affect Course Vital Signs Vital signs: Vital Signs Temperature 98.1 F 10/03/22 09:47 Pulse 86 10/03/22 09:47 Respiratory Rate 24 10/03/22 09:47 Blood Pressure 117/69 10/03/22 09:47 Pulse Oximetry 98 10/03/22 09:47 Temperature 98.1 F 10/03/22 09:47 Temperature Source Oral 10/03/22 09:47 Pulse 86 10/03/22 09:47 Respiratory Rate 24 10/03/22 09:47 Respiratory Effort Normal 10/03/22 09:51 Blood Pressure 117/69 10/03/22 09:47 Blood Pressure Position Sitting 10/03/22 09:47 Pulse Oximetry 98 10/03/22 09:47 Oxygen Delivery Method Room Air 10/03/22 09:47 Oxygen Flow Rate 0 10/03/22 09:47 Pain Level 7 10/03/22 09:47
[2022-10-03 10:07] LABS: Abs Immature Grans 0.13 10^3/uL (0.0-0.06); Absolute Eosinophil Count 0.02 10^3/uL (0.0-0.7); Absolute Monocyte Count 0.57 10^3/uL (0.1-0.8); Basophils % 0.2; Eosinophils % 0.1; HCT 36.3 % (36.0-46.0); Immature Grans % 0.8; MCH 29.9 pg (27.0-33.0); MCHC 33.1 % (32.0-36.0); MCV 90 fL (80-95); Monocytes % 3.3; Neutrophils % 90.6; Platelet Count 200 10^3/uL (130-400); RBC 4.02 10^6/uL (3.93-5.22); RDW 13.2 % (11.7-14.6); WBC 17.24 10^3/uL (4.4-10.8)
[2022-10-03 10:08] LABS: Absolute Basophil Count 0.03 10^3/uL (0.0-0.2); Absolute Lymphocyte Count 0.86 10^3/uL (1.2-3.4); Absolute Neutrophil Count 15.62 10^3/uL (1.2-6.7)
[2022-10-03 10:23] LABS: ALT 12 U/L (14-59); AST 10 U/L (15-37); Albumin 2.9 g/dL (3.4-5.0); Alkaline Phosphatase 83 U/L (46-116); Anion Gap 7.9 mmol/L (3-11); BUN 16 mg/dL (7-18); Bilirubin, Total 0.9 mg/dL (0.2-1.0); CO2 27.1 mmol/L (21.0-32.0); CREATININE 0.9 mg/dL (0.55-1.02); Calcium 8.9 mg/dL (8.5-10.1); Chloride 101 mmol/L (98-107); Estimated GFR 71.39 (mL/min/1.73m2); Glucose 139 mg/dL (74-106); Lipase 22 U/L (16-77); Potassium 3.6 mmol/L (3.5-5.1); Sodium 136 mmol/L (136-145); Total Protein 7.5 g/dL (6.4-8.2)
--- NOTE | 2022-10-03 10:41 | DI.CT_ITS ---
Exam(s) CT ABDOMEN PELVIS W EXAM: CT ABDOMEN PELVIS W CLINICAL HISTORY: lower abdominal pain,diverticulitis dx'ed 10/01. TECHNIQUE: Imaging Protocol: Axial computed tomography images with coronal and sagittal reformatted images were created and reviewed CONTRAST MATERIAL: Intravenous: Omnipaque-350 100cc Oral: None COMPARISON: CT CT ABDOMEN PELVIS W from 10/01/2022 FINDINGS: VISUALIZED LUNG BASES: No nodules nor pleural effusions evident. Bilateral saline breast implants ag ain noted. ABDOMEN: There is no ascites. LIVER: There are no focal hepatic lesions evident. No evidence of intrahepatic abscess. GALLBLADDER/BILIARY: Cholelithiasis again noted. No obvious acute cholecystitis. CBD is not dilated . PANCREAS: No evidence of pancreatic mass nor dilatation of the pancreatic duct. SPLEEN: Spleen is not enlarged. No obvious intrasplenic lesions. Splenic and portal veins are paten t. ADRENALS: There are no significant adrenal masses. KIDNEYS:No cysts evident. No solid renal masses. No calculi nor hydronephrosis.. ABDOMINAL AORTA: Abdominal aorta is not enlarged. LYMPH NODES:There is no retroperitoneal nor paraaortic adenopathy. ABDOMINAL WALL: No evidence of significant anterior abdominal wall nor inguinal hernia. GI: There has been further deterioration in the pelvis. There is now evidence of ruptured-perforated sigmoid diverticulitis with free fluid and abscess forming to the right of the previously described area of abnormal sigmoid. Adjacent small bowel loops are edematous. There is no gas in the portal v enous system. PELVIS: GI: No evidence of appendicitis. LYMPH NODES: There is no intrapelvic nor inguinal adenopathy. REPRODUCTIVE: No new uterus and ovarian findings. URINARY BLADDER: Not distended. No free air/gas within the urinary bladder lumen OSSEOUS: No fractures and no significant osseous lesions. IMPRESSION: 1. Further deterioration in the previously described sigmoid diverticulitis. There is now perforatio n with adjacent fluid and developing abscess. 2. There is presently no gas in the portal venous system. No abscess in the liver. No gas in the u rinary bladder. 3. Surgical consultation recommended. RADIATION DOSE DELIVERED: 963.45mGy.cm Total DLP DATA REPOSITORY: All CT scans at this facility are submitted to the National Radiology Data Registry (NRDR) Dose Index Registry (DIR) with the [employer] ([employer]). RADIATION OPTIMIZATION: All CT scans at this facility use at least one of these dose optimization te chniques: automated exposure control; mA and/or kV adjustment per patient size (includes targeted exa ms where dose is matched to clinical indication); or iterative reconstruction.
[2022-10-03] MEDS: Omnipaque 350 MG/ML 100 ML BTL IJ (10:49)
[2022-10-03] MEDS: Normal Saline Flush 10 ML SYR IVP ×2 (10:49→20:49)
[2022-10-03] MEDS: Normal Saline - Diluent 50 ML VIAL IJ (10:50)
[2022-10-03] MEDS: Normal Saline 1,000 ML 1000 ML IV (11:05)
[2022-10-03] MEDS: HYDROmorphone 2 MG/ML SYR 0.5 MG IVP (11:05)
[2022-10-03] MEDS: ACETAMINOPHEN 1,000 MG/100 ML BTL 400 MG IVPB (11:09)
--- NOTE | 2022-10-03 11:13 | DI.VRAD_ITS ---
Addendum created by Raj Griffin MD on 10/03/2022 11:20:38 AM EDT: THIS REPORT CONTAINS FINDINGS THAT MAY BE CRITICAL TO PATIENT CARE. The findings were verbally communicated via telephone conference with hernandez ríos at 11:20 AM EDT on 10/03/2022. The findings were acknowledged and understood. Initial report created on 10/03/2022 11:13:03 AM EDT: PROCEDURE INFORMATION: Exam: CT Abdomen And Pelvis With Contrast Exam date and time: 10/03/2022 10:53 AM Age: 62 years old Clinical indication: Other: Lower abdominal pain, diverticulitis diagnosed 10/01/22 TECHNIQUE: Imaging protocol: Computed tomography of the abdomen and pelvis with contrast. Radiation optimization: All CT scans at this facility use at least one of these dose optimization techniques: automated exposure control; mA and/or kV adjustment per patient size (includes targeted exams where dose is matched to clinical indication); or iterative reconstruction. Contrast material: OMNIPAQUE 350; Contrast volume: 100 ml; Contrast route: INTRAVENOUS (IV); COMPARISON: CT ABDOMEN PELVIS W 10/01/2022 8:17 PM FINDINGS: Bilateral breast prostheses Liver: Normal. No mass. Gallbladder and bile ducts: Faint calcified stones. No ductal dilation. Pancreas: Normal. No ductal dilation. Spleen: Normal. No splenomegaly. Adrenal glands: Normal. No mass. Kidneys and ureters: Normal. No hydronephrosis. Stomach and bowel: Colonic diverticulitis in the right lower quadrant/mid sigmoid colon. Mild small bowel thickening in the right lower quadrant. No obstruction Appendix: No evidence of appendicitis. Intraperitoneal space: Extensive infiltration/inflammation in the right lower quadrant/right pelvis. Fluid locule/early abscess formation anteriorly axial image 69 measuring 16 mm. Additional fluid locule/early abscess in the right lower quadrant measuring 2.7 cm axial image 65. Extraluminal locule of gas suspected axial image 72 measuring 15 mm Vasculature: Unremarkable. No abdominal aortic aneurysm. Lymph nodes: Unremarkable. No enlarged lymph nodes. Urinary bladder: Unremarkable as visualized. Reproductive: Unremarkable as visualized. Bones/joints: Unremarkable. No acute fracture. Soft tissues: Unremarkable. IMPRESSION: Suspected right lower quadrant perforation in this patient with known diverticulitis. Early abscess formations as noted Dictated and Authenticated by: Raj Griffin MD. Ordering:KEVIN Chawla MD
[2022-10-03] MEDS: PIPERACILLIN/TAZO 3.375 GM in Normal Saline 50 ML IVPB ×3 (11:55→23:56)
--- NOTE | 2022-10-03 12:29 | HPE_ITS ---
Date of service: 10/03/22 Time of Service: 12:29 Assessment and Plan Assessment and plan (1) Diverticulitis: Status: Chronic Assessment and plan: We talked for a little while about the natural history of diverticulitis. Although she has evidence of perforation, it seems localized at this point. I d o not see a defined target for percutaneous drainage. And her hemodynamics and exam are reassuring at this point. We will transition over to broad-spectrum intravenous antibiotics, repeat a CBC tomorrow. Hopefully we can get her through this with just antibiotics. Based on the CAT scan however, I do suspect there is a chance she will require percutaneous drainage. History of Present Illness History of Present Illness Chief Complaint: Abdominal pain Narrative: Yara 62 years old, and she began experiencing crampy lower abdominal pain this past Wednesday. She describes it as sharp, colicky, and exacerbated with walking. She has some mild relief when laying still. She has an associated loss of appetite with it, but no other change in the character of her bowel habits. She was seen in the emergency department on the , and diagnosed with diverticulitis. She was started on some Augmentin, and oxycodone. She had some mild relief of her symptoms with oxycodone, but they persisted through the past several days. She had some subjective fevers at home, and came back today for reevaluation. She underwent a CAT scan of the abdomen and pelvis that shows contained perforation of diverticulitis. She has known diverticulosis from a previous colonoscopy. She has never had any abdominal surgery. Review of Systems Constitutional Constitutional: Denies body ache(s), Reports fever(s) and Reports poor appetite Eyes Eyes: Reports system reviewed and no additional complaints, except as documented ENT Ears, Nose, Mouth, and Throat: Reports system reviewed and no additional complaints, except as documented Cardiovascular Cardiovascular: Denies chest pain and Denies dyspnea Respiratory Respiratory: Denies chest congestion, Denies cough and Denies dyspnea Gastrointestinal Gastrointestinal: Reports abdominal pain, Reports bloating and Reports cramping Genitourinary Genitourinary: Reports system reviewed and no additional complaints, except as documented Musculoskeletal Musculoskeletal: Reports system reviewed and no additional complaints, except as documented Hematologic/Lymphatic Hematologic/Lymphatic: Denies easy bleeding and Denies easy bruising PFSH All Active Problems Chest pain (Acute) Diverticulitis (Chronic) Acute diverticulitis (Acute) Perforation bowel (Acute) Colorectal polyp detected on colonoscopy (Acute) Diverticulosis large intestine w/o perforation or abscess w/o bleeding (Acute) Rosacea (Chronic 11/30/17) Migraine without status migrainosus, not intractable (Chronic 11/30/17) Depression (Chronic 11/30/17) Atypical squamous cells of undetermined significance (ASC-US) on cervical Pap smear (Chronic 03/25/17) HR HPV negative 2016 2015 NILM/(+)HR HPV Anxiety (Chronic 11/30/17) Medical History Left bundle branch block (LBBB) on electrocardiogram ECHO done 02/28/18 EF 50%, No aortic stenosis Surgical History H/O breast augmentation H/O rhinoplasty History of bilateral carpal tunnel release Social History Smoking/Tobacco Use Status: Former Tobacco Use Smoking risk assessment performed?: Yes Alcohol Intake: current Alcohol Intake frequency: holidays/special occasions only Drug use: Never Substance use type: does not use Do you feel safe at home: Yes Do you feel safe in your relationship?: Yes Meds Allergies and Home Medications Allergies Allergy/AdvReac Type Severity Reaction Status Date / Time citalopram [From Celexa] Allergy panic Verified 10/03/22 09:51 attacks paroxetine [From Paxil] AdvReac Intermediate panic Verified 10/03/22 09:51 attack season Allergy Mild Uncoded 10/03/22 09:51 Home Medications Medication Instructions Recorded Confirmed Type Sertraline HCl [Zoloft] 100 mg PO DAILY 11/30/17 10/03/22 History lorazepam 0.5 mg tablet 0.5 mg PO PRN 11/30/17 10/03/22 History amoxicillin 875 mg-potassium 1 tab PO Q12H 7 days #14 tabs 10/01/22 10/03/22 Rx clavulanate 125 mg tablet oxybutynin chloride 5 mg 5 mg PO .QHS 10/01/22 10/03/22 History tablet,extended release 24 hr Exam Const General: cooperative, healthy appearing and comfortable Nutritional Appearance: average body habitus Resp Effort & Inspection: normal respiratory effort and able to speak in complete sentences Auscultation: clear to auscultation bilaterally Cardio Jugular venous pressure: no JVD Rate: regular rate Rhythm: regular rhythm Heart Sounds: S1 normal and S2 normal GI Inspection: normal to inspection Palpation: soft and no hernias Percussion: normal to percussion Auscultation: normal bowel sounds Results Labs 10/03/22 10:00 10/03/22 10:00 Labs: Laboratory Results - last 24 hr 10/03/22 10/03/22 10:00 10:00 WBC 17.24 H RBC 4.02 Hgb 12.0 Hct 36.3 MCV 90 MCH 29.9 MCHC 33.1 RDW 13.2 Plt Count 200 MPV 10.0 Immature Gran % 0.8 Neutrophils % 90.6 Lymphocytes % 5.0 Monocytes % 3.3 Eosinophils % 0.1 Basophils % 0.2 Nucleated RBC % 0.0 Absolute Neutrophils 15.62 H Absolute Lymphocytes 0.86 L Absolute Monocytes 0.57 Absolute Eosinophils 0.02 Absolute Basophils 0.03 Sodium 136 Potassium 3.6 Chloride 101 Carbon Dioxide 27.1 Anion Gap 7.9 BUN 16 Creatinine 0.9 Est GFR (CKD-EPI 2020) 71.39 Glucose 139 H Calcium 8.9 Total Bilirubin 0.9 AST 10 L ALT 12 L Alkaline Phosphatase 83 Total Protein 7.5 Albumin 2.9 L Lipase 22 Last Vital Signs Temp 98.1 F 10/03/22 09:47 Pulse 86 10/03/22 09:47 Resp 24 10/03/22 09:47 BP 117/69 10/03/22 09:47 Pulse Ox 98 10/03/22 09:47 Time Spent Time spent with Patient: 40-54 minutes Time was spent: preparing to see the patient(eg.review tests), obtaining and/or reviewing separately otained hiistory, ordering medications,tests, procedures, indepentently interpreting results and counseling the patient
[2022-10-03] MEDS: Lactated Ringers 1,000 ML 75 ML IV (13:57)
[2022-10-03] MEDS: Enoxaparin 40 MG/0.4 ML SYR SC (13:57)
[2022-10-03 15:11] LABS: Bilirubin Negative (Negative); Blood Small (Negative); Clarity Clear (Clear); Glucose Negative (Negative); Ketones Negative (Negative); Leukocyte Esterase Negative (Negative); Nitrite Negative (Negative); Urobilinogen 0.2 mg/dL (Up to 0.2); pH 5.5 (5-8)
[2022-10-03 15:19] LABS: Bacteria Rare HPF (Negative); C & S Indicated? No; Casts 0-2 Hyaline LPF (Negative); Crystals Negative HPF (Negative); Epithelial Cells Moderate HPF (Negative); Mucus Negative (Negative); WBC 0-2 HPF (0-5)
[2022-10-03] MEDS: MORPHine 2 MG/ML SYR IVP (20:50)
--- NOTE | 2022-10-03 22:25 | NUR.NOTE ---
Pt brought her own Sertraline tabs to the hospital that she's been taking for 14 years. Pt is allergic to Paxil, Celexa and did not want to miss a dose. The bottle label reads Sertraline 50mg, but verification through drug website states it is 100mg Sertraline. The medication can't be prescribed here bc it is non-formulary. This nurse contacted Dr Bradley and he placed an order for Prozac 20mg daily. Pt states she didn't want to take it bc she wasn't sure how her body would react to it, given her other allergies to SSRIs. Bottle given to nurse and placed in locked med cart. This nurse will let oncoming CC know about it, so that pharmacy can put a patient label on it.
[2022-10-03] MEDS: Acetaminophen 325 MG TAB 650 MG PO (23:56)
[2022-10-04 00:56] VITALS: TEMP 36.9
[2022-10-04 01:12] VITALS: TEMP 36.9
[2022-10-04] MEDS: Lactated Ringers 1,000 ML 75 ML IV ×3 (04:04→21:03)
[2022-10-04] MEDS: PIPERACILLIN/TAZO 3.375 GM in Normal Saline 50 ML IVPB ×4 (05:52→23:50)
[2022-10-04 06:22] LABS: Abs Immature Grans 0.05 10^3/uL (0.0-0.06); Absolute Basophil Count 0.03 10^3/uL (0.0-0.2); Absolute Neutrophil Count 12.42 10^3/uL (1.2-6.7); Basophils % 0.2; Eosinophils % 0.6; HCT 31.7 % (36.0-46.0); HGB 10.4 g/dL (11.2-15.7); Immature Grans % 0.4; Lymphocytes % 4.8; MCH 30.3 pg (27.0-33.0); MCHC 32.8 % (32.0-36.0); MCV 92 fL (80-95); MPV 10.2 fL (8.0-11.0); Monocytes % 4.5; Neutrophils % 89.5; Platelet Count 184 10^3/uL (130-400); RBC 3.43 10^6/uL (3.93-5.22); RDW 13.2 % (11.7-14.6); RDW-SD 45.2 fL; WBC 13.88 10^3/uL (4.4-10.8)
[2022-10-04 06:23] LABS: Absolute Eosinophil Count 0.08 10^3/uL (0.0-0.7); Absolute Lymphocyte Count 0.67 10^3/uL (1.2-3.4); Absolute Monocyte Count 0.62 10^3/uL (0.1-0.8)
[2022-10-04 06:43] VITALS: BP 120/70; PULSE 69; RESP 18; TEMP 37.1; O2SAT 94
[2022-10-04 06:53] LABS: Anion Gap 8.1 mmol/L (3-11); BUN 10 mg/dL (7-18); CO2 27.9 mmol/L (21.0-32.0); CREATININE 0.8 mg/dL (0.55-1.02); Calcium 8.5 mg/dL (8.5-10.1); Chloride 102 mmol/L (98-107); Estimated GFR 82.23 (mL/min/1.73m2); Glucose 108 mg/dL (74-106); Potassium 3.4 mmol/L (3.5-5.1); Sodium 138 mmol/L (136-145)
--- NOTE | 2022-10-04 09:40 | INITIAL_ITS ---
- If Service Date Differs Date of service: 10/04/22 Time of Service: 09:40 Care Management Initial Assess REASON FOR HOSPITALIZATION:: diverticulitis PAST MEDICAL HISTORY/PAST SURGICAL HISTORY:: ll Active Problems . Chest pain (Acute). Diverticulitis (Chronic). Acute diverticulitis (Acute). Perforation bowel (Acute). Colorectal polyp detected on colonoscopy (Acute). Diverticulosis large intestine w/o perforation or abscess w/o bleeding (Acute). Rosacea (Chronic 11/30/17). Migraine without status migrainosus, not intractable (Chronic 11/30/17). Depression (Chronic 11/30/17). Atypical squamous cells of undetermined significance (ASC-US) on cervical Pap smear (Chronic 03/25/17). HR HPV negative 2017. 2015 NILM/(+)HR HPV. Anxiety (Chronic 11/30/17). Medical History . Left bundle branch block (LBBB) on electrocardiogram. ECHO done 02/28/18 EF 50%, No aortic stenosis. Surgical History . H/O breast augmentation. H/O rhinoplasty. History of bilateral carpal tunnel release PREVIOUS FUNCTIONAL STATUS/SOCIAL/FAMILY SUPPORTS:: Yara lives alone in a single family home in [facility]. She has a son in [place] and a daughter in [place] who has 2 children. Yara has worked for the [employer] in [place] for over 25 years. She enjoys flower gardening and outdoor activities. She is independent at baseline and does not receive any community services. CURRENT FUNCTIONAL STATUS:: Yara was sitting up in a chair when CM met with her. She was pleasant and engaged easily with CM in conversation. Yara stated that this is her first episode of diverticulitis but has several family members who have had similar issues. At the time of the visit she rated her pain at a 1-2/10 but acknowledged that at times it is very painful. She stated that the pain medication helps but she quickly gets uncomfortable when it wears off. She remaijs on a clear liquid diet but expects to have her diet advanced tomorrow. Yara talked a bit about her job and how physically demanding it is. She also shared that in 2019 she was hospitalized and intubated at [facility] with ARDS for a very long time. She credites her baseline good health for her ability to recover. ADVANCE DIRECTIVES:: none on file at [facility] or at state registery. Yara thinks she has completed them. CM provided her with a copy of [place] AD forms and offered to assist with completeion if desired. Has patient been provided with info about the portal/API?: Yes Did the patient sign up for the portal?: Yes (previously) CODE STATUS:: Full Code INSURANCE COVERAGE / FINANCIAL ISSUES:: [employer] CURRENT HOME/COMMUNITY SERVICES/EQUIPMENT:: none PRIMARY CARE PHYSICIAN:: Emily Ferreira PATIENT/FAMILY EDUCATION NEEDS:: Follow up appointments with PCP and surgeon TRANSPORTATION:: via private vehicle with family PLAN:: Anticipate Yara will be discharged home with no new services. She will follow up with her community providers and plan of care and transport with family. CM will follow and assess for discharge planning concerns.
[2022-10-04 11:46] VITALS: BP 136/74; PULSE 80; RESP 20; TEMP 37.5; O2SAT 97
--- NOTE | 2022-10-04 11:47 | PGE_ITS ---
Date of Service Date of service: 10/04/22 Time of Service: 11:47 Assessment and Plan Assessment and plan (1) Intestinal diverticular abscess: Status: Acute Assessment and plan: Her exam and white blood cell count are certainly reassuring today. I will replete the potassium, and recheck labs tomorrow. We will leave her diet as is for today. If the leukocytosis continues to improve, then we can transition back to an enteral antibiotic regimen sometime tomorrow. Subjective Subjective Interval history since last seen: Ozzie had a low-grade temperature yesterday afternoon into the evening. It is normalized overnight. She says her pain is better today, and a little more localized to the suprapubic area. She has a little bit of an increase in her appetite today. Exam GI Other: Abdomen soft and nondistended. She has some focal tenderness in the suprapubic area, just slightly to the right side. No other signs of peritonitis Objective Last Vital Signs Temp 98.8 F 10/04/22 06:43 Pulse 69 10/04/22 06:43 Resp 18 10/04/22 06:43 BP 120/70 10/04/22 06:43 Pulse Ox 94 10/04/22 06:43 Laboratory Results - last 24 hr 10/03/22 10/04/22 10/04/22 14:55 06:13 06:13 WBC 13.88 H RBC 3.43 L Hgb 10.4 L Hct 31.7 L MCV 92 MCH 30.3 MCHC 32.8 RDW 13.2 Plt Count 184 MPV 10.2 Immature Gran % 0.4 Neutrophils % 89.5 Lymphocytes % 4.8 Monocytes % 4.5 Eosinophils % 0.6 Basophils % 0.2 Nucleated RBC % 0.0 Absolute Neutrophils 12.42 H Absolute Lymphocytes 0.67 L Absolute Monocytes 0.62 Absolute Eosinophils 0.08 Absolute Basophils 0.03 Sodium 138 Potassium 3.4 L Chloride 102 Carbon Dioxide 27.9 Anion Gap 8.1 BUN 10 Creatinine 0.8 Est GFR (CKD-EPI 2020) 82.23 Glucose 108 H Calcium 8.5 Urine Color Yellow Urine Clarity Clear Urine pH 5.5 Ur Specific [place] 1.010 Urine Protein 30 H Urine Ketones Negative Urine Blood Small H Urine Nitrite Negative Urine Bilirubin Negative Urine Urobilinogen 0.2 Ur Leukocyte Esterase Negative Urine RBC 3-5 H Urine WBC 0-2 Ur Epithelial Cells Moderate Urine Crystals Negative Urine Bacteria Rare Urine Casts 0-2 Hyaline Urine Mucus Negative Ur Culture Indicated? No Urine Glucose Negative Time Spent with Patient Time Spent with Patient: 25-34 minutes Time was spent: preparing to see the patient(eg.review tests), ordering medications,tests, procedures and counseling the patient
[2022-10-04] MEDS: POTASSIUM CHLORIDE 20 MEQ, POTASSIUM CHLORIDE 10 MEQ 30 MEQ PO (11:52)
--- NOTE | 2022-10-04 12:22 | PHA.REVIEW2 ---
Pharmacy Admission Review - Admission Clinical Review (Last Reviewed 10/03/22 @ 12:31 by Nir Bradley MD) Intestinal diverticular abscess (Acute) Acute diverticulitis (Acute) Perforation bowel (Acute) erythromycin base Allergy (Intermediate, Unverified 10/03/22 13:36) Hives citalopram [From Celexa] Allergy (Verified 10/03/22 09:51) panic attacks paroxetine [From Paxil] Adverse Reaction (Intermediate, Verified 10/03/22 09:51) panic attack season Allergy (Mild, Uncoded 10/03/22 09:51) Resuscitation Status Full Code Height 5 ft 6 in Weight 72.575 kg - Renal Dosing Renal Dosing: BUN 10 mg/dL (7-18) 10/04/22 06:13 Creatinine 0.8 mg/dL (0.55-1.02) 10/04/22 06:13 Medications needing adjustments: Reviewed (Crcl ~58 mL/min current meds okay) - Anticoagulation Anticoagulation: Hgb 10.4 g/dL (11.2-15.7) L 10/04/22 06:13 Hct 31.7 % (36.0-46.0) L 10/04/22 06:13 Plt Count 184 10^3/uL (130-400) 10/04/22 06:13 Creatinine 0.8 mg/dL (0.55-1.02) 10/04/22 06:13 DVT Prophylaxis: Reviewed Medications: Enoxaparin Therapeutic Anticoagulation: N/A - Opiate Usage Evaluate Pain Scale/Pains Meds: Reviewed Scheduled Bowel Reg ordered if on Opiates?: Yes (psyllium) - Relevant Labs Sodium 138 mmol/L (136-145) 10/04/22 06:13 Potassium 3.4 mmol/L (3.5-5.1) L 10/04/22 06:13 Chloride 102 mmol/L (98-107) 10/04/22 06:13 Electrolytes, C-Reactive P, ESR: Reviewed (PO potassium ordered) - DM Control DM Control: Glucose 108 mg/dL (74-106) H 10/04/22 06:13 DM Control: Reviewed (no DM noted in pt's medical history, no A1c on file) Insulin Dosing, Diabetic Medication: N/A - Cardiac Review BP, HR, EF%: Reviewed (BP and HR are within normal limits) - Qtc Review QTc: N/A - IV to PO Switch IV Medications: Reviewed - Home Meds Home Med List reviewed: Intervened (see information below... this text box was not big enough to contain all of the information) Relevent Home Meds Not ordered & why?: Per nursing patient takes sertraline at night and can only take a certain NDC/formulation of this med due to reactions with other kinds. I asked for more info so it could be documented in adverse reactions. The 100 mg sertraline pills in the [facility] [employer] machine match those that were brought in by the patient (color, shape, size and markings), but the pt's sertraline was not brought in its original bottle so I had no NDC information for comparison. Provider okay'd the use of patient's own sertraline, so they were transferred from the bottle they were brought in (a 50 mg sertraline bottle) into a clear vial and labeled correctly so there is no confusion about the strenght/dosage. - Current meds Current Medication Order Review: Intervened (Discontinued duplicate med orders and DI meds that had already been given.) - Comments Comments/Follow Ups: Watch VS, K+, labs and for med changes (possible renal dose adjustments). Antibiotic Review - Pharmacy Antibiotic Review Pharmacy Antibiotic Activity: Reviewed, no change (Zosyn continues for intestinal diverticular abscess per progress note)
[2022-10-04 14:42] VITALS: BP 143/80; PULSE 81; RESP 19; TEMP 37.6; O2SAT 95
[2022-10-04] MEDS: Enoxaparin 40 MG/0.4 ML SYR SC (14:59)
[2022-10-04] MEDS: MORPHine 2 MG/ML SYR IVP (15:57)
[2022-10-04] MEDS: Normal Saline Flush 10 ML SYR IVP (17:31)
[2022-10-04] MEDS: Oxybutynin-CR 5 MG TABCR PO (21:02)
[2022-10-05 05:35] VITALS: BP 132/76; PULSE 68; RESP 16; TEMP 37; O2SAT 96
[2022-10-05] MEDS: PIPERACILLIN/TAZO 3.375 GM in Normal Saline 50 ML IVPB ×3 (05:36→18:14)
[2022-10-05 06:43] LABS: HCT 31.5 % (36.0-46.0); HGB 10.2 g/dL (11.2-15.7); MCH 29.8 pg (27.0-33.0); MCHC 32.4 % (32.0-36.0); MCV 92 fL (80-95); Platelet Count 225 10^3/uL (130-400); RBC 3.42 10^6/uL (3.93-5.22); RDW 13.2 % (11.7-14.6); RDW-SD 44.8 fL; WBC 10.17 10^3/uL (4.4-10.8)
[2022-10-05 07:16] LABS: BUN 8 mg/dL (7-18); CREATININE 0.7 mg/dL (0.55-1.02); Calcium 8.4 mg/dL (8.5-10.1); Chloride 100 mmol/L (98-107); Estimated GFR 96.52 (mL/min/1.73m2); Glucose 87 mg/dL (74-106); Potassium 3.2 mmol/L (3.5-5.1); Sodium 136 mmol/L (136-145)
[2022-10-05 07:33] VITALS: BP 146/77; PULSE 67; RESP 16; TEMP 37; O2SAT 94
[2022-10-05] MEDS: Lactated Ringers 1,000 ML 75 ML IV (08:01)
--- NOTE | 2022-10-05 09:42 | PDOC.CMPRO ---
Date of service: 10/05/22 Time of Service: 09:42 Care Management Progress Note Progress Note Text Progress Note Text: S/O:Yara was ambulating in her room when CM met with her. She was in good spirits and stated that she is pain free. She has had 3 bowel movements without issue. She is tolerating her diet well and anticipates being able to discharge later today or tomorrow. Yara denied the need for any services at home. A: Yara is a 62 year old woman admitted on 10/03/22 with Diverticulitis P:Anticipate Yara will be discharged home with no new services. She will follow up with her community providers and plan of care and transport with family. CM will follow and assess for discharge planning concerns.
[2022-10-05] MEDS: POTASSIUM CHLORIDE 20 MEQ, POTASSIUM CHLORIDE 10 MEQ 30 MEQ PO (10:26)
[2022-10-05] MEDS: Normal Saline Flush 10 ML SYR IVP ×3 (12:45→18:14)
--- NOTE | 2022-10-05 12:48 | W.PM.PROGNOT ---
Date of Service Date of service: 10/05/22 Time of Service: 12:48 Assessment and Plan Assessment and plan (1) Intestinal diverticular abscess: Status: Acute Assessment and plan: Her pain is gone. Her WBC count is normal. I will replete the potassium, and recheck labs tomorrow. Advance her diet to low fiber diet. Will switch to IV antibiotics upon discharge Hopefully Home tomorrow She is due for a colonoscopy this year. We will have her follow up in 6 weeks and get her scheduled for a colonoscopy Subjective Subjective Interval history since last seen: Mrs Lawton is a pleasant 62-year-old female who was admitted on October 03 with abdominal pain and CT scan evidence of a ruptured diverticulum. She was started on clear liquids and IV antibiotics. Today she is feeling well. She has no pain. She has been tolerating the clear liquids without increased pain. She has had no fevers. Exam Const General: comfortable Nutritional Appearance: overweight Orientation: alert and oriented x3 HENMT Head: normocephalic and atraumatic Resp Effort & Inspection: normal respiratory effort Auscultation: clear to auscultation bilaterally Cardio Rate: regular rate Rhythm: regular rhythm GI Palpation: soft and nontender Objective Last Vital Signs Temp 98.6 F 10/05/22 07:33 Pulse 67 10/05/22 07:33 Resp 16 10/05/22 07:33 BP 146/77 H 10/05/22 07:33 Pulse Ox 94 10/05/22 07:33 Laboratory Results - last 24 hr 10/05/22 10/05/22 06:20 06:20 WBC 10.17 RBC 3.42 L Hgb 10.2 L Hct 31.5 L MCV 92 MCH 29.8 MCHC 32.4 RDW 13.2 Plt Count 225 MPV 10.0 Sodium 136 Potassium 3.2 L Chloride 100 Carbon Dioxide 29.0 Anion Gap 7.0 BUN 8 Creatinine 0.7 Est GFR (CKD-EPI 2020) 96.52 Glucose 87 Calcium 8.4 L Time Spent with Patient Time Spent with Patient: 25-34 minutes Time was spent: obtaining and/or reviewing separately otained hiistory, ordering medications,tests, procedures, indepentently interpreting results and counseling the patient
[2022-10-05] MEDS: Enoxaparin 40 MG/0.4 ML SYR SC (14:15)
[2022-10-05 15:54] VITALS: BP 156/81; PULSE 76; RESP 16; TEMP 37.4; O2SAT 94
[2022-10-05] MEDS: Oxybutynin-CR 5 MG TABCR PO (21:16)
[2022-10-06] MEDS: PIPERACILLIN/TAZO 3.375 GM in Normal Saline 50 ML IVPB ×2 (00:02→06:08)
[2022-10-06 03:57] VITALS: BP 137/75; PULSE 69; RESP 17; TEMP 36.9; O2SAT 97
--- NOTE | 2022-10-06 07:03 | W.PM.PROGNOT ---
Date of Service Date of service: 10/06/22 Time of Service: 07:04 Assessment and Plan Assessment and plan (1) Intestinal diverticular abscess: Status: Acute Assessment and plan: Potassium was repleted yesterday. She is tolerating a low fiber diet WBC was normal yesterday Abdominal pain is improving. Currently on IV Zosyn, will transition to PO for d/c D/C home later today. She will need to follow up with her PCP in 2 weeks Follow up with Surgical Services in 6 weeks to discuss proceeding with Colonoscopy. Subjective Subjective Interval history since last seen: Arrive with Yara sitting up in the chair. She reports very little abdominal pain on the RLQ. She denies any fevers, chills, nausea or vomiting. She states she has been tolerating her diet well. Exam Const General: cooperative, healthy appearing and comfortable Orientation: alert and oriented x3 Resp Effort & Inspection: normal respiratory effort, no audible wheezes and no cough GI Inspection: normal to inspection and non-distended Palpation: soft, no guarding and tender in the RLQ Objective Last Vital Signs Temp 36.9 C 10/06/22 03:57 Pulse 69 10/06/22 03:57 Resp 17 10/06/22 03:57 BP 137/75 10/06/22 03:57 Pulse Ox 97 10/06/22 03:57 Laboratory Results - last 24 hr 10/05/22 06:20 Sodium 136 Potassium 3.2 L Chloride 100 Carbon Dioxide 29.0 Anion Gap 7.0 BUN 8 Creatinine 0.7 Est GFR (CKD-EPI 2020) 96.52 Glucose 87 Calcium 8.4 L Time Spent with Patient Time Spent with Patient: <25 minutes Time was spent: other (patient seen by KORI and Dr. Valladares)
--- NOTE | 2022-10-06 07:08 | DSE_ITS ---
Date of service: 10/06/22 Time of Service: 08:00 DS: Diagnosis Discharge Diagnosis (1) Intestinal diverticular abscess: Status: Acute Discharge Plan Disposition Patient Disposition: Home Condition: Improving Discharge Details Reason For Visit: Diverticulitis Admit Date/Time: 10/03/22 12:35 Admit Provider: Nir Bradley Attending Provider: Nir Bradley Primary Care Provider: Emily Ferreira Hospital Course Hospital Course: 62 y/o female admitted through the ER with crampy abdominal pain, which was found to be diverticulitis based on CT scan. She was started on broad spectrum antibiotics and bowel rest. She was slowly progressed to a low fiber diet which she was tolerating very well. Her WBC progressively improved over her course of admission as well. She will be d/c home on PO clindamycin and metronidazole, to complete at total of 14 day course of antibiotics Follow up with General Surgery in 6 weeks She should follow up with her PCP in 2 weeks. Home Meds and New Rx's Prescriptions: New metronidazole 500 mg tablet 500 mg PO BID 11 Days Qty: 22 0RF clindamycin HCl 300 mg capsule 300 mg PO Q8H 11 Days Qty: 33 0RF Continued lorazepam 0.5 MG tablet 0.5 mg PO HS PRN PRN Sertraline HCl [Zoloft] 100 MG tablet 100 mg PO HS oxybutynin chloride 5 mg tablet extended release 24hr 5 mg PO HS Discontinued amoxicillin-pot clavulanate 875-125 mg tablet 1 tab PO Q12H 7 Days Qty: 14 0RF Discharge Instructions Instructions: Diverticulitis (DC) Stand Alone Forms: Nursing Discharge Form Referrals: Emily Ferreira [Primary Care Provider] - 10/15/22 1:30 pm (Appointment will be with Leland Martinez NP ) Nir Bradley MD [ [facility] STAFF PHYSICIAN] - (6 weeks Due for Colonoscopy Please call office to set up appointment. ) Activity:: Activity as Tolerated Equipment/Supplies:: No Equipment Needed Diet:: Low Fiber diet Discharge Orders Discharge Orders: Discharge Order (Routine); Ordered 10/06/22 Ordered By: Danyell Jo Discharge Data Discharge Date/Time-TO BE ENTERED AT DEPARTURE: 10/06/22 11:35 DS: Summary Time Spent with Patient providing and/or coordinating discharge services: Less than 30 minutes Status at Discharge Functional status at discharge: independent ambulation Overall status at discharge: patient is back to baseline Mental Status: mental status grossly normal Speech and Movement: speech and movement normal Mood: congruent mood Affect: normal affect Exam Const General: cooperative, healthy appearing and comfortable Orientation: alert and oriented x3 Resp Effort & Inspection: normal respiratory effort, no audible wheezes and no cough GI Inspection: normal to inspection and non-distended Palpation: soft, no guarding and tender in the RLQ Psych Mental Status: mental status grossly normal Speech and Movement: speech and movement normal Mood: congruent mood Affect: normal affect DS: Data Vitals/I&O Vitals and I&O: Vital Signs Temperature 36.9 C 10/06/22 03:57 Temperature Source Tympanic 10/06/22 03:57 Pulse 69 10/06/22 03:57 Pulse Rhythm Regular 10/06/22 01:34 Respiratory Rate 17 10/06/22 03:57 Respiratory Effort Normal 10/06/22 01:34 Respiratory Depth Normal 10/06/22 01:34 Respiratory Pattern Normal 10/06/22 01:34 Blood Pressure 137/75 10/06/22 03:57 Blood Pressure Mean 65 10/03/22 13:04 Blood Pressure Position Sitting 10/03/22 09:47 Pulse Oximetry 97 10/06/22 03:57 Oxygen Delivery Method Room Air 10/06/22 03:57 Oxygen Flow Rate 0 10/06/22 03:57 Pain Level 0 10/05/22 07:33 Comment RN informed of BP 10/05/22 15:54 Intake & Output 10/05/22 10/06/22 10/06/22 18:59 06:59 18:59 Intake Total 1727.5 / 1777.5 50 / 1777.5 Output Total 1400 / 1700 300 / 1700 Balance 327.5 / 77.5 -250 / 77.5 Intake: IV 1277.5 / 1327.5 50 / 1327.5 Oral 450 / 450 Output: Urine 1400 / 1700 300 / 1700 Other: Urine Color Yellow Yellow Urine Appearance Clear Clear Urine Odor None Comment patirent voids independently Stool Size Moderate Moderate Stool Characteristics Soft Soft Mucoid Voiding Methods Toilet Toilet Data Completed and Pending Labs on day of discharge: Labs from last 24 hours 10/05/22 06:20 Sodium 136 Potassium 3.2 L Chloride 100 Carbon Dioxide 29.0 Anion Gap 7.0 BUN 8 Creatinine 0.7 Est GFR (CKD-EPI 2020) 96.52 Glucose 87 Calcium 8.4 L PFSH All Active Problems (Updated 10/03/22 @ 18:50 by Cammy Thompson DO) Intestinal diverticular abscess (Acute) Chest pain (Acute) Diverticulitis (Chronic) Acute diverticulitis (Acute) Perforation bowel (Acute) Colorectal polyp detected on colonoscopy (Acute) Diverticulosis large intestine w/o perforation or abscess w/o bleeding (Acute) Rosacea (Chronic 11/30/17) Migraine without status migrainosus, not intractable (Chronic 11/30/17) Depression (Chronic 11/30/17) Atypical squamous cells of undetermined significance (ASC-US) on cervical Pap smear (Chronic 03/25/17) HR HPV negative 2016 2015 NILM/(+)HR HPV Anxiety (Chronic 11/30/17) Medical History (Updated 10/03/22 @ 18:50 by Cammy Thompson DO) Left bundle branch block (LBBB) on electrocardiogram ECHO done 02/28/18 EF 50%, No aortic stenosis Surgical History H/O breast augmentation H/O rhinoplasty History of bilateral carpal tunnel release Social History Smoking/Tobacco Use Status: Former Tobacco Use Smoking risk assessment performed?: Yes Alcohol Intake: current Alcohol Intake frequency: holidays/special occasions only Drug use: Never Substance use type: does not use Do you feel safe at home: Yes Do you feel safe in your relationship?: Yes Time Spent with Patient Time Spent with Patient: <45 minutes Time was spent: other (patient seen by PA)
[2022-10-06 07:59] VITALS: BP 135/78; PULSE 68; RESP 17; TEMP 36.8; O2SAT 97
[2022-10-06 08:00] VITALS: RESP 18; O2SAT 98
--- NOTE | 2022-10-06 08:07 | PDOC.CMDIS ---
Date of service: 10/06/22 Time of Service: 08:12 LACE Index Scoring Tool Questions: Length of Stay (in days): 3 Was the patient admitted via the E.D.?: Yes E.D. Visits: 2 Answers: Total Score: 8 Risk of Readmission: Low Risk Care Management Discharge Plan Reason for Hospitalization: diverticulitis; Intestinal diverticular abscess Discharge Plan: Yara will be discharged home with no new services with new prescriptions of PO clindamycin and metronidazole, to complete at total of 14 day course of antibiotics. She will follow up with her community providers and plan of care and transport with family. Patient/Family Education Needs: Review discharge instructions, discuss Ask Me Three.
--- NOTE | 2022-10-06 10:40 | NUR.NOTE ---
Patient has been DC. DC instructions have been reviewed with patient. All question & or concerns have been addressed. All PIV access has been removed. All of patients belongings have been packed & will be taken with patient as soon as she leaves the unit. will continue to monitor till she has left the floor. Nursing Note:
== END 2022-10-06 11:35 | disposition home or self-care (01) | DRG 392 ==
LOC: ER 11:32 → MS 13:29
PROVIDERS: Admitting Provider Surgery; Emergency Provider Physician Assistant; PCP Nurse Practitioner Family; Visit Provider Surgery
DX: K57.20 Diverticulitis of large intestine with perforation and abscess without bleeding (principal); L71.9 Rosacea, unspecified; G43.909 Migraine, unspecified, not intractable, without status migrainosus; F41.9 Anxiety disorder, unspecified; I44.7 Left bundle-branch block, unspecified; Z87.891 Personal history of nicotine dependence
CPT/HCPCS: 36415; 80048; 80053; 83690; 85027; 96365; 96375; 99285; J1650; 74177; 81003; 81015; 85025; J0131; J1170; J2270; J2543; J3490

== ENCOUNTER 2022-11-30 15:53 | Outpatient (REF) | payer OTHER, SELFPAY ==
[2022-11-30 21:06] LABS: TSH (W/Ref FT4) 1.49 uIU/mL (0.36-3.74)
[2022-11-30 21:15] LABS: Hemoglobin A1C 5.4 % (<5.7)
== END 2022-11-30 15:54 | disposition home or self-care (01) ==
LOC: NCHCN 15:53
PROVIDERS: PCP Nurse Practitioner Family; Visit Provider Nurse Practitioner Family
DX: R63.5 Abnormal weight gain (principal)
CPT/HCPCS: 83036; 84443

== ENCOUNTER 2022-12-11 17:14 | Outpatient (REF) | payer OTHER, SELFPAY ==
[2022-12-11 21:47] LABS: Bacteria Moderate HPF (Negative); C & S Indicated? C&S Done As Ordered; Casts Negative LPF (Negative); Crystals Rare Calcium Oxalate HPF (Negative); Epithelial Cells Rare HPF (Negative); Mucus Negative (Negative); RBC 0-2 HPF (0-2)
== END 2022-12-11 17:15 | disposition home or self-care (01) ==
LOC: LBN 17:14
PROVIDERS: PCP Nurse Practitioner Family; Visit Provider Physician Assistant Medical
DX: R35.0 Frequency of micturition (principal)
CPT/HCPCS: 87077; 81015; 87086; 87186

== ENCOUNTER → 2023-01-04 00:24 | Outpatient (CLI) | payer OTHER, SELFPAY ==
--- NOTE | 2023-01-04 | DI.MAMMO_ITS ---
Exam(s) MG MAMMO SCREENING 60 MIN DUR EXAM: MG MAMMO SCREENING 60 MIN DUR CLINICAL HISTORY: SCREENING FOR BREAST CANCER Z12.39 BILAT IMPLANTS TECHNIQUE: Mammograms were interpreted according to the usual protocol including computer analysis w ith CAD system, tomosynthesis and C-view imaging. Implant displaced views were performed in addition to the routine views. COMPARISON: 2013 through 2018. FINDINGS: The breasts are composed of scattered fibroglandular densities, Breast Density category B. Bilateral subpectoral implants appear intact. No suspicious masses or suspicious microcalcifications are seen. Benign calcifications again noted i n the medial left breast. No skin thickening or abnormal axillary lymph nodes are seen. There has been no significant change from prior exams. IMPRESSION: BI-RADS Cat 2 - Benign Findings Yearly screening mammography is recommended. Breast Density - Category B, scattered fibroglandular densities. A negative radiographic report should not delay biopsy if a dominant or clinically suspicious mass is present. Up to ten percent of cancers are not identified on mammography. A negative report may reinforce clinical impression. Adenosis and dense breasts may obscure an underlying neoplasm. False positive reports average 6 to 10%. Patient will receive a letter notifying them of these results.
== END ==
PROVIDERS: PCP Nurse Practitioner Family; Visit Provider Nurse Practitioner Family
DX: Z12.31 Encounter for screening mammogram for malignant neoplasm of breast (principal)
CPT/HCPCS: 77063; 77067

== ENCOUNTER 2023-02-08 12:32 | Day surgery (SDC) | payer OTHER, SELFPAY ==
--- NOTE | 2023-02-07 20:35 | W.PM.HP.N ---
Date of service: 02/08/23 Time of Service: 13:41 Assessment and Plan Assessment and plan (1) Screen for colon cancer: Status: Acute Assessment and plan: There have been no major interval changes in the history or physical, and I think Yara has a great understanding of the plan for the colonoscopy today. No contraindications to proceed as planned History of Present Illness History of Present Illness Chief Complaint: screening colonoscopy Narrative: She is 62 years old, and she underwent a colonoscopy 5 years ago for routine screening.? She was diagnosed with a tubular adenoma.? In the interim, she did have an episode of perforated diverticulitis that was treated with antibiotics and nonoperative management.? Since her discharge approximately 5 weeks ago, she has been feeling great.? She has had no more symptoms.? She has been tolerating a diet without any problems.? She denies any family history of colon or rectal cancers. PFSH All Active Problems Screen for colon cancer (Acute) Anxiety (Chronic 11/30/17) Atypical squamous cells of undetermined significance (ASC-US) on cervical Pap smear (Chronic 03/25/17) HR HPV negative 2016 2015 NILM/(+)HR HPV Depression (Chronic 11/30/17) Migraine without status migrainosus, not intractable (Chronic 11/30/17) Rosacea (Chronic 11/30/17) Diverticulosis large intestine w/o perforation or abscess w/o bleeding (Acute) Colorectal polyp detected on colonoscopy (Acute) Chest pain (Acute) Perforation bowel (Acute) Intestinal diverticular abscess (Acute) Medical History Left bundle branch block (LBBB) on electrocardiogram ECHO done 02/28/18 EF 50%, No aortic stenosis. F/U w/ Tubular adenoma (~03/14/18) Surgical History H/O breast augmentation H/O rhinoplasty History of bilateral carpal tunnel release History of colonoscopy with polypectomy (~03/14/18) Social History Smoking/Tobacco Use Status: Former Tobacco Use Quit Date: 05/31/06 Smoking risk assessment performed?: Yes Alcohol Intake: never Drug use: Never Substance use type: does not use Housing: house Current gender identity: female Do you feel safe at home: Yes Do you feel safe in your relationship?: Yes Meds Allergies and Home Medications Allergies Allergy/AdvReac Type Severity Reaction Status Date / Time erythromycin base Allergy Intermediate Hives Verified 02/08/23 12:55 citalopram [From Celexa] Allergy panic Verified 02/08/23 12:55 attacks paroxetine [From Paxil] AdvReac Intermediate panic Verified 02/08/23 12:55 attack season Allergy Mild Uncoded 02/08/23 12:55 Home Medications Medication Instructions Recorded Confirmed Type Sertraline HCl [Zoloft] 100 mg PO HS 11/30/17 02/08/23 History lorazepam 0.5 mg tablet 0.5 mg PO HS PRN PRN 11/30/17 02/05/23 History oxybutynin chloride 5 mg 5 mg PO HS 10/01/22 02/08/23 History tablet,extended release 24 hr Exam Const General: cooperative, healthy appearing and comfortable Orientation: awake and oriented x3 Eyes General: appearance normal, both eyes and all related structures Conjunctivae: conjunctivae normal Sclera: sclerae normal Resp Effort & Inspection: normal respiratory effort and able to speak in complete sentences Auscultation: clear to auscultation bilaterally Cardio Jugular venous pressure: no JVD Rate: regular rate Rhythm: regular rhythm GI Inspection: non-distended Palpation: soft, no guarding, no hernias and nontender Auscultation: normal bowel sounds Skin General skin exam: normal turgor Neuro General: patient alert, patient awake and patient oriented x3 Cognition: normal cognition Extrem Right lower extremity: no edema Left lower extremity: no edema Time Spent Time spent with Patient: <40 minutes Time was spent: counseling the patient
--- NOTE | 2023-02-07 20:36 | W.PM.DSUDISC ---
Date of service: 02/08/23 Time of Service: 14:27 Discharge Plan Disposition Patient Disposition: Home Condition: Good Discharge Details Reason For Visit: Colonoscopy Attending Provider: Nir Bradley Primary Care Provider: Emily Ferreira Home Meds and New Rx's Prescriptions: Continued lorazepam 0.5 MG tablet 0.5 mg PO HS PRN PRN Sertraline HCl [Zoloft] 100 MG tablet 100 mg PO HS oxybutynin chloride 5 mg tablet extended release 24hr 5 mg PO HS Discontinued polyethylene glycol 3350 17 gram/dose powder 238 g PO ONCE Qty: 238 0RF Rx Instructions: take per colonoscopy instructions bisacodyl [Dulcolax (bisacodyl)] 5 mg tablet,delayed release (DR/EC) 5 mg PO ONCE Qty: 4 0RF Rx Instructions: take per colonoscopy instructions Discharge Instructions Additional Instructions: Yara, we were able to complete your colonoscopy today without any difficulty at all. The quality of your prep was excellent. You do have extensive sigmoid and predominantly left-sided diverticulosis. However, I did not see any signs of tumors, polyps, or any other worrisome problems. At the very least, you will need another colonoscopy in 5 years based on your history of a tubular adenoma on her previous scope. 1. If tolerated, consume a soft, low fiber diet for 1-2 days. 2[address] Do not drive, drink alcohol, operate machinery, make critical decisions, or do activities that require coordination or balance for 24 hours. 3. Because air was put into your colon during the procedure, expelling air from your rectum (passing gas or farting) is normal. 4. You may not have a bowel movement for 1-3 days because of the colonoscopy prep. This is normal. 5. Go directly to the emergency room if you notice any of the following: Develop chills (warm to touch), or if you have a thermometer and your temperature is above 101 Difficulty breathing or difficultly swallowing Persistent vomiting Severe abdominal pain, other than gas cramps Severe chest pain Black, tarry stools Any bleeding ? exceeding one tablespoon 6. Call your physician if the site where your intravenous was started becomes red, swollen, painful, and warm to touch. 7. Your physician has reviewed your pre-procedure medications. Please continue to take those medications as previously ordered. You will be given specific information/education regarding any changes to your medications before leaving. Activity:: Activity as Tolerated Diet:: As Tolerated Discharge Orders Discharge Orders: Discharge Order (Routine); Ordered 02/07/23 Ordered By: Nir Bradley DS: Diagnosis Discharge Diagnosis (1) Screen for colon cancer: Status: Acute Asessment and Plan: Negative screening colonoscopy today. Consider another one in 5 years based on history of tubular adenoma
--- NOTE | 2023-02-07 20:37 | W.COLOREPORT ---
Date of service: 02/08/23 Time of Service: 14:33 Colonoscopy Report Date of procedure: 02/08/23 Pre-op diagnosis general: Screening colonocopy Post-op diagnosis procedure note: other (Diverticulosis) Procedure: Colonoscopy Surgeon: Nir Bardley Anesthesia Type: General:No Airway Complications: None Disposition: same day Indications: She is 62 years old, and she underwent a colonoscopy 5 years ago for routine screening.? She was diagnosed with a tubular adenoma.? In the interim, she did have an episode of perforated diverticulitis that was treated with antibiotics and nonoperative management.? Since her discharge approximately 5 weeks ago, she has been feeling great.? She has had no more symptoms.? She has been tolerating a diet without any problems.? She denies any family history of colon or rectal cancers. Prep: Miralax/Dulcolax Procedure Start Time: 14:01 Procedure End Time: 14:15 Retraction Time: 8 Findings: Diverticulosis Procedure Description: After the induction of monitored anesthetic care, and with the patient in left lateral decubitus position, I began by performing an external anorectal exam.? Perineum and skin were normal, as was the anal verge.? There was no evidence of external hemorrhoids.? Next, I performed a digital rectal exam.? I did not appreciate any abnormal findings.? Next, I advanced a colonoscope into the rectal vault.? I performed retroflexion.? This was normal.? Using insufflation, I then advanced the colonoscope beyond the rectal folds and into the sigmoid colon before advancing towards the cecum.? The quality of the prep was adequate.? There was extensive diverticulosis extending from about 18 cm past the anal verge up to about 40 cm, certainly involving up to the hepatic flexure. The true lumen was relatively easy to maintain, and we were able to traverse this segment without any difficulty. The scope was advanced along the ascending colon. The scope was noted to be in the cecum by identification of the ileocecal valve and appendiceal orifice.? I then began withdrawing the colonoscope using repeated irrigation as necessary for full evaluation of the colonic mucosa. ?Once the scope was withdrawn to the level of the rectum, great care was taken to examine portions of the rectal folds. I did not see any signs of tumors, polyps, or anything else out of the ordinary not mentioned above. Finally, the scope was withdrawn and the patient was brought to the same-day surgery recovery unit as the anesthetic wore off. ?The findings and instructions were shared with the patient prior to discharge.
--- NOTE | 2023-02-08 06:21 | W.ANESPRE ---
General Info Date of Service Date Performed: 02/08/23 Height: 5 ft 5.5 in Weight: 77.111 kg Body Mass Index (BMI): 27.8 Surgical Procedure: Operation Date: 02/08/23 14:20 Proposed Procedure Side Surgeon p Colonoscopy Nir Bradley MD Meds Allergies and Home Medications Allergies Allergy/AdvReac Type Severity Reaction Status Date / Time erythromycin base Allergy Intermediate Hives Verified 02/08/23 12:55 citalopram [From Celexa] Allergy panic Verified 02/08/23 12:55 attacks paroxetine [From Paxil] AdvReac Intermediate panic Verified 02/08/23 12:55 attack season Allergy Mild Uncoded 02/08/23 12:55 Home Medication Medication Instructions Recorded Sertraline HCl [Zoloft] 100 mg PO HS 11/30/17 lorazepam 0.5 mg tablet 0.5 mg PO HS PRN PRN 11/30/17 oxybutynin chloride 5 mg 5 mg PO HS 10/01/22 tablet,extended release 24 hr Current Visit Medications: Current Medications Generic Name Dose Route Start Last Admin Trade Name Angelika PRN Reason Stop Dose Admin Hyoscyamine Sulfate 0.125 mg 02/07/23 20:38 Hyoscyamine 0.125 Mg Sl/Oral/Chew SL 03/09/23 20:37 DIRECTED PRN Ringer's Solution 1,000 mls @ 80 mls/hr 02/08/23 06:00 IV 03/07/23 23:59 [facility] IV Miscellaneous Supplies 1 each 02/08/23 06:00 Iv Access IV 03/07/23 23:59 DIRECTED STEVEN Ondansetron HCl 4 mg 02/07/23 20:38 Ondansetron 4 Mg/2 Ml Vial IVP 03/09/23 20:37 Q4H PRN PRN Nausea / Vomiting Sodium Chloride 0 ml 02/08/23 06:00 Normal Saline Flush 10 Ml Syr IV 03/07/23 23:59 PRN PRN Sodium Chloride 0 ml 02/08/23 06:00 Normal Saline 10 Ml Vial IJ 03/07/23 23:59 DIRECTED PRN Sterile Water 0 ml 02/08/23 06:00 Water,Injection,Sterile 10 Ml Vial IJ 03/07/23 23:59 DIRECTED PRN PFSH Active Problems Active Problems: Problem Status Onset Code Screen for colon cancer Z12.11 Anxiety 07/03/18 F41.9 Atypical squamous cells of undetermined significance (ASC-US) on cervical Pap smear 03/25/17 R87.610 Depression 11/30/17 F32.9 Migraine without status migrainosus, not intractable 11/30/17 G43.909 Rosacea 11/30/17 L71.9 Diverticulosis large intestine w/o perforation or abscess w/o bleeding K57.30 Colorectal polyp detected on colonoscopy K63.5 Chest pain R07.9 Perforation bowel K63.1 Intestinal diverticular abscess K63.0 Medical History Medical History Left bundle branch block (LBBB) on electrocardiogram ECHO done 02/28/18 EF 50%, No aortic stenosis. F/U w/ Tubular adenoma (~03/14/18) Surgical History Surgical History H/O breast augmentation H/O rhinoplasty History of bilateral carpal tunnel release History of colonoscopy with polypectomy (~03/14/18) Tobacco Smoking/Tobacco Use Status: Former Tobacco Use Alcohol Alcohol Intake: never Substance Use Substance use: Never Substance use type: does not use Vital Signs and Lab Results Vital Signs Most Recent Vital Signs in EMR: Temp Pulse Resp BP Pulse Ox 36.7 C 89 18 121/86 96 02/08/23 12:49 02/08/23 12:49 02/08/23 12:49 02/08/23 12:49 02/08/23 12:49 Vital Signs Comment Vital Signs Comment:: Temp Pulse Resp BP Pulse Ox 36.7 C 89 18 121/86 96 02/08/23 12:49 02/08/23 12:49 02/08/23 12:49 02/08/23 12:49 02/08/23 12:49 Lab Results Blood Type / Crossmatch: No Data to Display Complete Blood Count: No Data to Display Complete Metabolic Panel: No Data to Display Liver Function Panel: No Data to Display Coagulation Panel: No Data to Display Cardiac Panel: No Data to Display Arterial Blood Gas: No Data to Display Venous Blood Gas: No Data to Display Pancreas Panel: No Data to Display Thyroid Panel: No Data to Display Infectious Disease: No Data to Display Blood Cultures: No Data to Display Toxicology Panel: No Data to Display Imaging and Studies Imaging and Studies Study information below may be from another EMR and interpreted by another provider. Please see original notes in EMR for more complete details. EKG Summary: 10/20: sinus, LBBB Stress Test Summary: 06/18: normal perfusion, abnormal contraction consistent with cardiomyopathy. EF 41%. diffuse LV regional WMA. moderate hypokinesis on the apical wall of the LV. Echocardiogram Summary: 03/17: LVEF 50%, paradoxical septal motion. Mild AR. mild-mod MR, normal rvfxn. PAS 15-25 mmhg. Anesthesia Assessment and Plan Anesthesia History Personal History: No History of Anesthesia Complications Family History: No Family History of Anesthesia Complications Exercise Tolerance Exercise Tolerance: Metabolic Equivalents>4 Cardiac & Pulmonary Exam Cardiac Exam: Normal S1/S2 Heart Sounds Pulmonary Exam: Clear Bilateral Breath Sounds Implantable Cardiac Device Does patient have a Pacemaker or an ICD?: No Airway Exam Known Difficult Airway: No Mallampati Class: 2 Mouth Opening: Normal (> 3cm) Thyromental Distance: Greater than 3 cm Neck Range of Motion: Full ROM Neck Circumference: Normal Teeth Condition: Normal Dentition ASA Classification ASA Score: ASA 3 Emergency Case?: No NPO Status NPO Status: NPO Clears >2 hours, Solids >8 hours Anesthesia Plan Resuscitation Status: Full Code Anesthesia Technique: General Anesthesia Airway Planned: Natural Airway Monitors Used: Standard Monitors Preoperative Comments:: 62 yo female for colo. diverticulosis with previous perf. Sig PMHx: LBBB, anxiety/depression (loraz, sertraline), former smoker, never EtOH. ARDS with flu a in 2019. Previous Anes: - colo, prop, natural airway, no issues.
[2023-02-08 12:49] VITALS: BP 121/86; PULSE 89; RESP 18; TEMP 36.7; O2SAT 96
[2023-02-08] MEDS: Lactated Ringers 1,000 ML 80 ML IV (13:05)
[2023-02-08 13:45] VITALS: BMI 27.8
[2023-02-08 14:20] VITALS: BP 124/72; PULSE 80; RESP 16; TEMP 36.4; O2SAT 93
--- NOTE | 2023-02-08 14:26 | W.ANESPOSTOP ---
Postoperative Evaluation Date, Time and Location Date Performed: 02/08/23 Time Performed: 14:26 Patient Location: Day Surgery Unit Vital Signs Most Recent Imported Vital Signs: Most Recent Vital Signs Temp Pulse Resp BP Pulse Ox 36.4 C L 80 16 124/72 93 02/08/23 14:20 02/08/23 14:20 02/08/23 14:20 02/08/23 14:20 02/08/23 14:20 Pain Score Most Recent Pain Score: Most Recent Pain Score Pain Level 0 02/08/23 14:20 Assessment Mental Status: Awake (Alert & Oriented to Patient Baseline) Airway and Respiratory Function: Patent airway with normal (patient baseline) respiratory exam Cardiovascular Function: Hemodynamically Stable Hydration Status: Adequately Hydrated Nausea & Vomiting: No Nausea or Vomiting Pain: Pt. Denies Any Pain Peripheral Nerve Block: Patient did not receive a nerve block
[2023-02-08 14:50] VITALS: BP 123/83; PULSE 70; RESP 18; TEMP 36.4; O2SAT 95
== END 2023-02-08 15:15 | disposition home or self-care (01) ==
PROVIDERS: PCP Nurse Practitioner Family; Visit Provider Surgery
PROC: 0DJD8ZZ Inspection of Lower Intestinal Tract, Via Natural or Artificial Opening Endoscopic (ICD-10-PCS; CPT 45378; principal; 2023-02-08 14:15)
DX: Z12.11 Encounter for screening for malignant neoplasm of colon (principal); Z86.010 Personal history of colon polyps; K57.30 Diverticulosis of large intestine without perforation or abscess without bleeding
CPT/HCPCS: 45378; J2001

== ENCOUNTER → 2023-04-01 10:44 | Outpatient (CLI) | payer OTHER, SELFPAY ==
--- NOTE | 2023-04-01 10:55 | DI.RAD_ITS ---
Exam(s) XR SACROILIAC JOINTS EXAM: XR SACROILIAC JOINTS CLINICAL HISTORY: RT SCIATICA M54.31---PAIN IN RT LOWER LEG M79.661. TECHNIQUE: 2D digital imaging was performed. Four images were obtained. COMPARISON: CT CT ABDOMEN PELVIS W from 10/03/2022 FINDINGS: Bones: No fracture is present. No bony destructive lesion is seen. Alignment is satisfactory. SI Joint:No fusion, erosions or sclerosis is seen. There are moderate degenerative changes seen in th e lumbar spine. Soft Tissue: Normal. IMPRESSION: 1. Normal radiographs of the SI Joints. 2. Moderate degenerative changes in the lumbar spine. DATA REPOSITORY: RADIATION DOSE DELIVERED:
== END ==
PROVIDERS: PCP Nurse Practitioner Family; Visit Provider Nurse Practitioner Family
DX: M54.31 Sciatica, right side (principal); M79.661 Pain in right lower leg
CPT/HCPCS: 72202

== ENCOUNTER 2024-01-21 14:36 | Outpatient (REF) | payer OTHER, MEDICARE, SELFPAY ==
--- OUTSIDE RECORDS SUMMARY | 2024-01-21 14:39 | XMS_ITS | Encounter Summary ---
[place] [address] Care Team Providers Care Emblem Fuser Tender Name Role Phone Leland Echavarria OLGA Primary Care Provider [phone] Encounter Details Date Type Department Care Team (Late st Contact Info) Description 11/03/2018 [place] [address] Heriberto Thompson Social History Tobacco Use Types Packs/Day Years Used Date Smoking Tobacco: Former Cigarettes 1 15 0 06/06/1991 - 06/06/2006 Smokeless Tobacco: Never Alcohol Use Standard Drinks/Week Comments Not Currently 0 (1 standard drink = 0.6 oz pur e alcohol) Sex and Gender Information Value Date Recorded Sex Assigned at Not on file Gender Identity Not on file Sexual Orientation Not on file documented as of this encounter Miscellaneous Notes * Telephone Encounter - Heriberto Thompson - 11/03/2018 11:01 AM EDT I called [facility] ([phone]) to obtain pulmonary rehab benefits. I was on hold for 65 minutes before being disconnected. I will call back later documented in this encounter Plan of Treatment Not on file documented as of this encounter Visit Diagnoses Not on filedocumented in this encounter Care Teams Emblem Fuser Tender Relationship Specialty Start Date End Date Leland Echavarria DNP PCP - General Family Medicine 08/24/18 documented as of this encounter
--- OUTSIDE RECORDS SUMMARY | 2024-01-21 14:39 | XMS_ITS | Encounter Summary ---
[place] [address] Care Team Providers Care Customer Consultant Name Role Phone Leland Echavarria DNP Primary Care Provider Encounter Details Date Type Department Care Team (Late st Contact Info) Description 12/29/2018 Tele[place] [phone] Carlin Shay, RN Social History Tobacco Use Types Packs/Day Years [...] on file documented as of this encounter Plan of Treatment Not on file documented as of this encounter Visit Diagnoses Not on filedocumented in this encounter Care Teams Customer Consultant Relationship Specialty Start Date End Date Leland Echavarria DNP PCP - General Family Medicine 08/24/18 documented as of this encounter
--- OUTSIDE RECORDS SUMMARY | 2024-01-21 14:39 | XMS_ITS | Encounter Summary ---
[place] [address] Care Team Providers Care Coal Bagger Name Role Phone Leland Echavarria DNP Primary Care Provider [phone] Encounter Details Date Type Department Care Team (Late st Contact Info) Description 11/21/2019 Telephone [place] [address] Wendy Doyle Social History Tobacco Use Types Packs/Day Years [...] on filedocumented in this encounter Care Teams Coal Bagger Relationship Specialty Start Date End Date Leland Echavarria DNP PCP - General Family Medicine 08/24/18 documented as of this encounter
--- OUTSIDE RECORDS SUMMARY | 2024-01-21 14:39 | XMS_ITS | Clinical Summary ---
Author Organization [facility] [address] Care Team Providers Care Special Education Tutor Name Role Phone Leland Echavarria OLGA Primary Care Provider [phone] Allergies Active Allergy Reactions Criticality Noted Date Comments Citalopram Hydrobromide Paroxetine Hcl Medications Medication Sig Dispensed Refills Start Date End Date Status sertraline (ZOLOFT) 100 mg Tablet Take 100 mg by mouth daily. Active acyclovir (ZOVIRAX) 400 mg Tablet Take 400 mg by mouth as needed. Active albuteroL (Ventolin HFA) 90 mcg/actuation HFA Aerosol Inhaler Inhale 2 puffs into the lungs every 4 hours as needed for Wheezing. Use with spacer Active Active Problems Problem Noted Date Diagnosed Date Acute respiratory distress syndrome (ARDS) 07/04 Respiratory failure with hypoxia 06/26/2018 Influenza A (H1N1) 06/26/2018 Hyponatremia 06/26/2018 Immunizations Name Administration Dates Next Due Pneumococcal Conjugate (Prevnar 13) 10/19/2018 Social History Tobacco Use Types Packs/Day Years Used Date Smoking Tobacco: Former Cigarettes 1 15 0 06/06/1991 - 06/06/2006 Smokeless Tobacco: Never Alcohol Use Standard Drinks/Week Comments Not Currently 0 (1 standard drink = 0.6 oz pur e alcohol) Sex and Gender Information Value Date Recorded Sex Assigned at Not on file Gender Identity Not on file Sexual Orientation Not on file Last Filed Vital Signs Vital Sign Reading Time Taken Comments Blood Pressure 130/76 06/27/2019 10:22 AM EST Pulse 73 06/27/2019 10:22 AM EST Temperature 36.9 ??C (98.4 ??F) 07/14/2018 8:24 AM ES T Respiratory Rate 16 06/27/2019 10:22 AM EST Oxygen Saturation 95% 06/27/2019 10:22 AM EST Inhaled Oxygen Concentration - - Weight 75.8 kg (167 lb) 06/27/2019 10:22 AM EST Height 167.6 cm (5' 6) 06/27/2019 10:22 AM EST Body Mass Index 26.95 06/27/2019 10:22 AM EST Plan of Treatment Health Maintenance Due Date Last Done Comments CT Colonography 1958 Colonoscopy 1958 Colorectal Cancer Screening 1958 FIT DNA 1958 FIT 1958 Sigmoidoscopy (10 year) with FIT yearly 1958 Sigmoidoscopy 1958 HIV screen 1976 Hepatitis C Screening 1976 Tdap adult 1977 Tetanus vaccine 1977 HPV test 1988 PAP Smear 1988 Breast Cancer Share Decision Needed 1998 Breast Cancer screening 1998 Zoster vaccine (1 of 2) 2008 Covid-19 Vaccine ( - 2022-2 4 season) 2023 Bone Density Scan 2023 Pneumoccocal Vaccine: 65+ (2 of 2 - PPSV23 or PCV20) 2023 10/19/2018 Influenza (Flu) vaccine (1 o f 1 - Influenza standard series) 01/30/2024 Diabetes Screening (HgbA1C o r Glucose) Discontinued 07/10/2018, 07/08/2018, 07/07/2018, Additional history exists Procedures Procedure Name Priority Date/Time Associated Diagnosis Comments BASIC METABOLIC PANEL Routine 07/10/2018 2:22 AM EST from Last 3 Months or Most Recently Relevant to Health Maintenance Results * (ABNORMAL) Basic Metabolic Panel (non-fasting) (07/10/2018 2:22 AM EST) Glucose 89 65 - 199 mg/dL [facility] Comment:Diabetes: >=200 mg/d L plus symptoms Blood Urea Nitrogen 18 8 - 18 mg/dL [facility] Creatinine 0.54(L) 0.70 - 1.20 mg/dL [facility] Sodium 138 135 - 145 mmol/L [facility] Potassium 3.7 3.5 - 5.0 mmol/L [facility] Comment: Please note: ??Patients with WBC >100,000 may have falsely elevated Potassium levels. ??For accurate Potassium quantification in these patients send serum separator tube (gold top) for subsequent determinations. ??Contact the Clinical Chemistry Laboratory if there are any questions. Chloride 102 98 - 107 mmol/L [facility] Carbon Dioxide 26 22 - 31 mmol/L [facility] Anion Gap 10 5 - 15 mmol/L [facility] Calcium 8.6 8.5 - 10.5 mg/dL [facility] Est Glomerular Filtration Rate 103 >=60 mL/min/1. 73 m?? [facility] Comment: The eGFR was calculated using the CKD-EPI equation. As with all creatinine based estimates of kidney function, eGFR values calculated with the CKD-EPI equation are not accurate in patients with acute kidney failure, extremes of body mass or the acutely ill. http://[employer]/DHMCnkf eGFR 119 >=60 mL/min/1. 73 m?? [facility] Comment: The eGFR was calculated using the CKD-EPI equation. As with all creatinine based estimates of kidney function, eGFR values calculated with the CKD-EPI equation are not accurate in patients with acute kidney failure, extremes of body mass or the acutely ill. http://[employer]/[facility] Blood specimen (specimen) 07/10/2018 2:22 AM EST 07/10/2018 2:44 AM EST Narrative Resulting Agency Comment Spec In Lab Jessica Hernandez MD CHEMISTRY ORDERABLE S [facility] [place] [address] from Last 3 Months or Most Recently Relevant to Health Maintenance Advance Directives Documents on File Type Date Recorded Patient County Supervisor Expl anation Advance Directives and Livin g Will 07/08/2018 4:33 PM 07/07/2018 * Full Code (Latest Code Status on File) Date Activated Date Inactivated Comments 06/26/2018 10:34 AM 07/14/2018 4:00 PM Question Answer Comments Does patient have capacity to make decision: Yes Care Teams Special Education Tutor Relationship Specialty Start Date End Date Leland Echavarria DNP PCP - General Family Medicine 08/24/18
--- OUTSIDE RECORDS SUMMARY | 2024-01-21 14:39 | XMS_ITS | Encounter Summary ---
[place] [address] Care Team Providers Care Detective And Intelligence Analyst Name Role Phone Leland Echavarria DNP Primary Care Provider [phone] Encounter Details Date Type Department Care Team (Late st Contact Info) Description 11/03/2021 [place] [address] My Lerma Social History Tobacco Use Types Packs/Day Years [...] encounter Miscellaneous Notes * Telephone Encounter - My Lerma - 11/03/2021 7:51 AM EDT lm to jacintahed T[facility]'s appt. documented in this encounter Plan of Treatment Not on file documented as of this encounter Visit Diagnoses Not on filedocumented in this encounter Care Teams Detective And Intelligence Analyst Relationship Specialty Start Date End Date Leland Echavarria DNP PCP - General Family Medicine 08/24/18 documented as of this encounter
--- OUTSIDE RECORDS SUMMARY | 2024-01-21 14:39 | XMS_ITS | Encounter Summary ---
Author Organization [facility] [place] [address] Care Team Providers Care Rags Laborer Name Role Phone Leland Echavarria OLGA Primary Care Provider Encounter Details Date Type Department Care Team (Late st Contact Info) Description 11/28/2019 2:30 PM EDT TH Visit (TeleHealth) [place] [phone] Renata Boothe MD [facility] [place] [address] ARDS survivor Social History Tobacco Use Types Packs/Day Years [...] on file documented as of this encounter Progress Notes * Renata Boothe MD - 11/28/2019 2:30 PM EDT Images from the original note were not included. [facility] Section of Pulmonary and Critical Care Medicine Outpatient Consultation Date of Encounter: 11/28/2019 Referring Provider: No referring provider defined for this encounter. Reason for Evaluation: Post ARDS History of Present Illness: Patient verbally consents to this telephone visit and understands that this visit may be billed, similar to a clinic office visit. Ms. Lawton is a 59-year-old female who presents today for an initial clinic telephone visit with me she is a known patient to pulmonary and used to follow- up with Dr. Tucker. Since Dr. tucker hasleft the practice, the patient will continue follow-up with me. The patient had a hospitalization in July 2018 when she was diagnosed with influenza pneumonia and ARDS. She has been followed in pulmonary clinic since then. After her last visit, she had been doing well clinically on her PFTs had shown slow improvement in her diffusion capacity as well as herspirometry. The patient states that she has continued to improve with each clinic visit. She has been back to work and her job has been physically demanding. She exerts herself at work, feels slightly fatigued but does not experience significant shortness of breath. She continues to walk about 8-10 miles everyday but avoids lifting weights. She does feel slightly short of breath with the mask on. She does describe having some cough when she significantly exerts herself, though she has not heardherself wheeze significantly. Her nature of her job has also changed [place]. [place] feels [place] her cough even more due to the dust.Her cough seems to have improved since then. She has not hd any ER visits or hospitalizations since her last clinic visit. Past Medical and Surgical History: History of Influenza PNA and ARDS. Family History: Father had heart problems. Mother had stroke and HTN. No history of cancers in the family. Social and Occupational History: Currently lives at home, lives alone. Currently works in the [employer]. Smoked 1 PPD x 30 years,quit in 2006. Drinks alcohol occasionally. No illicit drug use. No vaping. No pets at home. No known mold exposure. Current Medications at Start of Encounter: Current Outpatient Medications Medication Sig Dispense Refill ??? sertraline (ZOLOFT) 100 mg Tablet Take 100 mg by mouth daily. ??? acyclovir (ZOVIRAX) 400 mg Tablet Take 400 mg by mouth as needed. No current facility-administered medications for this visit. Adverse Drug Reactions: Allergies Allergen Reactions ??? Citalopram Hydrobromide ??? Paroxetine Hcl Review of Systems: CONSTITUTIONAL: No appetite or weight loss. No fevers, chills or night sweats. No fatigue. HEENT: No nasal congestion or postnasal drip. No sinus issues. PULM: Minimal cough present, though improved from prior. No hemoptysis or pleuritic chest pain. CVS: No angina-like symptoms or palpitations. No orthopnea or leg swelling. GI: No abdominal pain, nausea or vomiting. : No dysuria. MUSCULOSKELETAL: No myalgias or arthralgias. NEURO: No headaches or dizziness. Physical Examination: There were no vitals taken for this visit. No physical exam was done as the patient had a telephone visit. She was talking in full sentences over the phone without any conversational dyspnea. Imaging: I personally reviewed imaging from CT chest 11/28/19 : Scattered interstitial lung changes with thickened septal /interstitial markingsnoted. These are likely changes post ARDS. Pulmonary Function Tests: 11/28/2019 Normal FVC 2.68 L (84%), normal FEV1 2.20 L (88%), normal FEV1/FVC ratio 82. No obstructive ventilatory defect present. No restrictive ventilatory defect present. Decreased diffusion capacity 13.91 (68%). Mild abnormalities in gas exchange noted. Impression and Plan of Care: Ms. Lawton is a 59 year old female who presents today for a follow up telephone visit : ASSESSMENT 1. Post ARDS syndrome ?? The patient continues to do well clinically. I reviewed her PFTs today which have shown ongoing improvement in her FEV1, FVC as well as diffusion capacity. Her spirometry at this point is essentially normal. I also reviewed her CT chest with her which has shown some scattered septal thickening with interstitial changes which are likely changes from post ARDS. The reassuring thing is that the patient is clinically fairly asymptomatic at this time. She does not have any symptoms/signs suggestive of reactive airway disease. If she develops any worsening cough in the near future, we can consider adding inhalers to her regimen. We will repeat PFTs in 1 year with a follow-up with me in clinic. RECOMMENDATIONS 1. Repeat PFTs in 1 year 2. RTC in 1 year. I provided care to the patient today via telephone call. The total time associated with this visit was 17 minutes. I reviewed my impression and recommendations with the patient and answered all the questions to hersatisfaction. She understands the plan, and knows that she can contact us at any time should any new symptoms, concerns or questions arise. Renata Boothe MD Die CutterLicensed Appraiser Pulmonary [place] [address] documented in this encounter Plan of Treatment Not on file documented as of this encounter Visit Diagnoses Diagnosis ARDS survivor Personal history of other diseases of respiratory system documented in this encounter Care Teams Rags Laborer Relationship Specialty Start Date End Date Leland Echavarria DNP PCP - General Family Medicine 08/24/18 documented as of this encounter
--- OUTSIDE RECORDS SUMMARY | 2024-01-21 14:39 | XMS_ITS | Encounter Summary ---
Author Organization [facility] [place] [address] Care Team Providers Care Freight Engineer Name Role Phone Leland Echavarria OLGA Primary Care Provider Encounter Details Date Type Department Care Team (Latest Contact Info) Description 12/22/2018 1:31 PM EDT - 12/22/2018 11:59 PM EDT Hospital [place] [phone] Influenza, pneumonia Discharge Disposition: Home Social History Tobacco Use Types Packs/Day Years [...] on file documented as of this encounter Medications at Time of Discharge Medication Sig Dispensed Refills Start Date End Date sertraline (ZOLOFT) 100 mg Tablet Take 100 mg by mouth daily. acyclovir (ZOVIRAX) 400 mg Tablet Take 400 mg by mouth as needed. documented as of this encounter Procedure Notes * Nir Leal MD - 12/22/2018 11:59 PM EDTAssociated Order(s): PULMONARY FUNCTION TEST Pulmonary Function Test Interpretation Spirometry The FVC is reduced. FEV1 is normal. The FEV1/FVC ratio is normal. Diffusion Capacity Unadjusted single-breath diffusion capacity for CO is reduced. Oximetry Resting oxyhemoglobin saturation is normal. Resting oximetry was assessed while the patient was breathing room air. Impression: Isolated reduced FVC suggests restriction, but is not specific. Could be confirmed by lung volumes if indicated. Moderate (40-60%) diffusion impairment present. Normal resting oximetry. Nir Leal MD, PhD documented in this encounter Plan of Treatment Not on file documented as of this encounter Procedures Procedure Name Priority Date/Time Associated Diagnosis Comments COMMON PULMONARY FUNCTION TEST Routine 12/22/2018 11:59 PM EDT Influenza, pneumonia documented in this encounter Results * Pulmonary Function Testing (12/22/2018 11:59 PM EDT) Narrative Nir Leal MD - 12/22/2018 11:59 PM EDT Nir Leal MD ? 12/23/2018 ??8:27 AM Pulmonary Function Test Interpretation Spirometry The FVC is reduced. ??FEV1 is normal. ??The FEV1/FVC ratio is normal. Diffusion Capacity Unadjusted single-breath diffusion capacity for CO is reduced. Oximetry Resting oxyhemoglobin saturation is normal. Resting oximetry was assessed while the patient was breathing room air. Impression: Isolated reduced FVC suggests restriction, but is not specific. ?? Could be confirmed by lung volumes if indicated. Moderate (40-60%) diffusion impairment present. Normal resting oximetry. Nir Leal MD, PhD Sandra Zapien MD PFT ORDERABLES documented in this encounter Visit Diagnoses Diagnosis Influenza, pneumonia Influenza with pneumonia documented in this encounter Care Teams Freight Engineer Relationship Specialty Start Date End Date Leland Echavarria DNP PCP - General Family Medicine 08/24/18 documented as of this encounter
--- OUTSIDE RECORDS SUMMARY | 2024-01-21 14:39 | XMS_ITS | Encounter Summary ---
[place] [address] Care Team Providers Care Administrative Office Specialist Name Role Phone Leland Echavarria OLGA Primary Care Provider Encounter Details Date Type Department Care Team (Late st Contact Info) Description 11/10/2018 [place] [address] Leonela Miranda, RT Social History Tobacco Use Types Packs/Day Years [...] as of this encounter Progress Notes * Leonela Miranda RT - 11/10/2018 11:59 PM EDT Pulmonary Rehabilitation Out-patient Rounds Report Yara Lawton has attended 3 sessions of Pulmonary Rehab and was reviewed in rounds today with pulmonary rehab staff and Water/Wastewater Project Manager, Dr.James Le. All Pulmonary rehab sessions can be found under the CARD/VASC tab. Per Dr. Le's recommendation, she is to continue with the current exercise prescription, progressing as tolerated, to maintain a perceived exertion rating of moderate to somewhat hard and [place] dyspnea at moderate. Comments: Yara Lawton is gradually increasing her exercise workloads utilizing pursed lip breathing with cues. documented in this encounter Plan of Treatment Not on file documented as of this encounter Visit Diagnoses Not on filedocumented in this encounter Care Teams Administrative Office Specialist Relationship Specialty Start Date End Date Leland Echavarria DNP PCP - General Family Medicine 08/24/18 documented as of this encounter
--- OUTSIDE RECORDS SUMMARY | 2024-01-21 14:39 | XMS_ITS | Encounter Summary ---
Author Organization [facility] Address [facility] [place] [address] Care Team Providers Care Waiter/Waitress Bar Name Role Phone Leland Echavarria OLGA Primary Care Provider Encounter Details Date Type Department Care Team (Late st Contact Info) Description 07/23/2019 Ancillary [place] [address] Renata Boothe MD [facility] [place] [address] Social History Tobacco Use Types Packs/Day Years [...] Procedure Name Priority Date/Time Associated Diagnosis Comments FILM LIBRARY STORAGE ONLY CT CHEST Routine 07/23/2019 12:00 AM EST documented in this encounter Results * Film Library- Storage Only CT Chest (07/23/2019 12:00 AM EST) Narrative [facility] - 07/25/2019 3:48 PM EST This exam is auto-finalizing. It's purpose is for storage only. Renata Boothe MD IMG FILM LIBRARY ORD ERABLES [facility] [place], [place] documented in this encounter Visit Diagnoses Not on filedocumented in this encounter Care Teams Waiter/Waitress Bar Relationship Specialty Start Date End Date Leland Echavarria DNP PCP - General Family Medicine 08/24/18 documented as of this encounter
--- OUTSIDE RECORDS SUMMARY | 2024-01-21 14:39 | XMS_ITS | Encounter Summary ---
[place] [address] Care Team Providers Care Field Pipe Lines Supervisor Name Role Phone Leland Echavarria OLGA Primary Care Provider Encounter Details Date Type Department Care Team (Late st Contact Info) Description 12/12/2018 Telephone [place] [address] Leonela Miranda RT Social History Tobacco Use Types Packs/Day [...] encounter Miscellaneous Notes * Telephone Encounter - Leonela Miranda RT - 12/12/2018 10:59 AM EDT Received call from Yara Lawton that she received a bill from [facility] for her pulmonary rehab. She called [facility] and understood that pulmonary rehab isn't covered by her insurance. Plan: Follow up with [facility] insurance regarding pulmonary rehab policy. - Yara will connect with financial assistance at [facility] for coverage of pulmonary rehab. She will continue her home exercise program including walking and kayaking. documented in this encounter Plan of Treatment Not on file documented as of this encounter Visit Diagnoses Not on filedocumented in this encounter Care Teams Field Pipe Lines Supervisor Relationship Specialty Start Date End Date Leland Echavarria DNP PCP - General Family Medicine 08/24/18 documented as of this encounter
--- OUTSIDE RECORDS SUMMARY | 2024-01-21 14:39 | XMS_ITS | Encounter Summary ---
[place] [address] Care Team Providers Care Space And Missile Operations Spacelift Name Role Phone Leland Echavarria OLGA Primary Care Provider Encounter Details Date Type Department Care Team (Latest Contact Info) Description 11/28/2018 8:15 AM EDT - 11/28/2018 11:59 PM EDT Hospital [place] [phone] Pulmonary Rehab Program, Prp None Discharge Disposition: Home Social History Tobacco Use [...] as needed. documented as of this encounter Plan of Treatment Not on file documented as of this encounter Procedures Procedure Name Priority Date/Time Associated Diagnosis Comments PULMONARY REHAB SESSION Routine 12/02/2018 12:55 PM EDT PULMONARY REHAB SESSION Routine 11/30/2018 12:59 PM EDT documented in this encounter Results * Pulmonary Rehab Session (12/02/2018 12:55 PM EDT) 12/02/2018 12:5 5 PM EDT Narrative [facility] - 12/02/2018 12:55 PM EDT Click on the Linked Documents ??View Image link to view the session report. Procedure Note Unknown - 12/02/2018 Click on the Linked Documents View Image link to view the sessionreport. Unknown CARDIAC REHAB ORDERA BLES Performing Organization Address [facility] Co de Phone Number [facility] * Pulmonary Rehab Session (11/30/2018 12:59 PM EDT) 11/30/2018 12:5 9 PM EDT Narrative [facility] - 11/30/2018 12:59 PM EDT Click on the Linked Documents ??View Image link to view the session report. Procedure Note Unknown - 11/30/2018 Click on the Linked Documents View Image link to view the sessionreport. Unknown CARDIAC REHAB ORDERA BLES Performing Organization Address [facility] Co de Phone Number ELO documented in this encounter Visit Diagnoses Not on filedocumented in this encounter Care Teams Space And Missile Operations Spacelift Relationship Specialty Start Date End Date Leland Echavarria DNP PCP - General Family Medicine 08/24/18 documented as of this encounter
--- OUTSIDE RECORDS SUMMARY | 2024-01-21 14:39 | XMS_ITS | Encounter Summary ---
[place] [address] Care Team Providers Care Speed Belt Sander Tender Name Role Phone Leland Echavarria DNP Primary Care Provider Encounter Details Date Type Department Care Team (Late st Contact Info) Description 05/02/2021 [place] [address] Odalis Kirkland Social History Tobacco Use Types Packs/Day Years [...] on filedocumented in this encounter Care Teams Speed Belt Sander Tender Relationship Specialty Start Date End Date Leland Echavarria DNP PCP - General Family Medicine 08/24/18 documented as of this encounter
--- OUTSIDE RECORDS SUMMARY | 2024-01-21 14:39 | XMS_ITS | Encounter Summary ---
[place] [address] Care Team Providers Care Content Producer Name Role Phone Leland Echavarria DNP Primary Care Provider [phone] Encounter Details Date Type Department Care Team (Late st Contact Info) Description 11/05/2021 Telephone [place] [address] My Lerma Social History Tobacco Use Types [...] * Telephone Encounter - My Lerma - 11/05/2021 8:58 AM EDT lm to resched Boothe appt called 2x sent letter documented in this encounter Plan of Treatment Not on file documented as of this encounter Visit Diagnoses Not on filedocumented in this encounter Care Teams Content Producer Relationship Specialty Start Date End Date Leland Echavarria DNP PCP - General Family Medicine 08/24/18 documented as of this encounter
--- OUTSIDE RECORDS SUMMARY | 2024-01-21 14:39 | XMS_ITS | Encounter Summary ---
[place] [address] Care Team Providers Care Pocketbook Maker Name Role Phone Leland Echavarria DNP Primary Care Provider Encounter Details Date Type Department Care Team (Late st Contact Info) Description 06/12/2019 Tele[place] [phone] Sonia Marlow Social History Tobacco Use Types Packs/Day Years [...] encounter Miscellaneous Notes * Telephone Encounter - Sonia Marlow - 06/12/2019 11:29 AM EST Left a message x1 to reschedule the 06/26 appointment documented in this encounter Plan of Treatment Not on file documented as of this encounter Visit Diagnoses Not on filedocumented in this encounter Care Teams Pocketbook Maker Relationship Specialty Start Date End Date Leland Echavarria DNP PCP - General Family Medicine 08/24/18 documented as of this encounter
--- OUTSIDE RECORDS SUMMARY | 2024-01-21 14:39 | XMS_ITS | Encounter Summary ---
[place] [address] Care Team Providers Care Outside Medical Sales Representative Name Role Phone Leland Echavarria OLGA Primary Care Provider Encounter Details Date Type Department Care Team (Late st Contact Info) Description 11/04/2018 Tele[place] [address] Heriberto Thompson Social History Tobacco Use Types [...] * Telephone Encounter - Heriberto Thompson - 11/04/2018 9:31 AM EDT I called [facility] ([phone]) to obtain pulmonary rehab benefits. ?? I called 4 times as I was continuously disconnected by the automated system. On my 5th call I was able to reach Jeannine, who advised me that pulmonary rehab is not a covered benefit under this patient plan. Call reference umbmoses is [id number] documented in this encounter Plan of Treatment Not on file documented as of this encounter Visit Diagnoses Not on filedocumented in this encounter Care Teams Outside Medical Sales Representative Relationship Specialty Start Date End Date Leland Echavarria DNP PCP - General Family Medicine 08/24/18 documented as of this encounter
--- OUTSIDE RECORDS SUMMARY | 2024-01-21 14:39 | XMS_ITS | Encounter Summary ---
Author Organization [facility] Address [facility] [place] [address] Care Team Providers Care Construction Contractor Name Role Phone Leland Echavarria OLGA Primary Care Provider [phone] Reason for Referral * Diagnostic Test (Routine) - Closed Specialty Diagnoses / Procedures Referred By Contac t Referred To Contact Radiology Diagnoses Acute respiratory distress syndrome (ARDS) Procedures CT Chest wo Contrast (Generic) Sandra Tucker MD [facility] [place] [address] [facility] [place] [address] Referral ID Status Reason Start Date Expiration Date V isits Requested Visits Authorized [id number] Closed Specialty Service Requested 11/17/2019 05/08/2020 1 1 Reason for Visit * Reason Comments Follow-up Encounter Details Date Type Department Care Team (Late st Contact Info) Description 06/27/2019 10:30 AM EST Office [place] [address] Sandra Tucker MD [facility] [place] [address] [place] [address] Acute respiratory distress syndrome (ARDS) (Primary Dx); Cough, persistent Social History Tobacco Use Types Packs/Day Years [...] on file documented as of this encounter Last Filed Vital Signs Vital Sign Reading Time Taken Comments Blood Pressure 130/76 06/27/2019 10:22 AM EST Pulse 73 06/27/2019 10:22 AM EST Temperature - - Respiratory Rate 16 06/27/2019 10:22 AM EST Oxygen Saturation 95% 06/27/2019 10:22 AM EST Inhaled Oxygen Concentration - - Weight 75.8 kg (167 lb) 06/27/2019 10:22 AM EST Height 167.6 cm (5' 6) 06/27/2019 10:22 AM EST Body Mass Index 26.95 06/27/2019 10:22 AM EST documented in this encounter Progress Notes * Sandra Tucker MD - 06/27/2019 10:30 AM EST Images from the original note were not included. [facility] Section of Pulmonary and Critical Care Medicine Follow-Up Visit Date of Encounter: 06/27/2019 Location: Office Referring Provider: Leland Echavarria, Misha [address] [place] [address] Pulmonary Problem List: post ARDS syndrome Asthma Interval History: Ms Lawton is a 59 yo female seen in follow up after her hospitalization in July of 2018 for an adult ARDS syndrome following Influenza PNA. She returns to our clinic today stating that she is feeling well. 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 She continues to feel mildly fatigued as well as dyspneic on exertion when doing mechanical as well as physical exercise, especially outdoors when it is cold or exposed to dust. 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 She denies any hemoptysis or hematemesis. She had had no hospitalizations and has not been ill since her last visit. There have been no medication changes Past Medical History: No past medical history on file. Past Surgical History: No past surgical history on file. Updated Social History: Current Medications: Medications 12/26/18 1207 Medication Sig Taking? sertraline (ZOLOFT) 100 mg Tablet Take 100 mg by mouth daily. acyclovir (ZOVIRAX) 400 mg Tablet Take 400 mg by mouth as needed. Adverse Drug Reactions: Allergies Allergen Reactions ??? Citalopram Hydrobromide ??? Paroxetine Hcl Review of Systems: Review of Systems Physical Examination: There were no vitals taken for this visit. Alert and oriented x3, no apparent distress, no respiratory distress noted Pupils equal reactive to light, no jaundice or pallor Mouth with good dentition, no ulcerations or secretions Neck no palpable masses Chest breath sounds are decreased bilaterally however no active wheezing or rhonchi or rales Heart S1 and S2 are regular, no rubs or gallops Abdomen soft, mildly obese, nontender nondistended Extremities warm, well-perfused no edema noted Skin no rashes Neurological: Grossly nonfocal IMAGING: Patient's last imaging is a chest x-ray from September 2018. Improvement of patchy reticular infiltrates,following her hospitalization in SPIROMETRY: PFT Results [place] [facility] [place] Results FEV1 (L) 1.94 liters FEV1 (%) 74 FVC (L) 2.36 liters FVC (%) 70 FEF 25-75 (L) 2.44 FEF 25-75 (%) 102 FEV1/FVC (absolute) 0.82 FEV1/FVC (%) 82.2 % Additional PFT Data (if needed) CULTURES: Lab Results Component Value Date LOWERRESPCX (A) 07/01/2018 Many Lo albicans Rare mixed bacterial morphotypes suggestive of normal upper respiratory germaine PERTINENT LABS: Metabolic Parameters Lab Results Component Value Date NA 138 07/10/2018 K 3.7 07/10/2018 CL 102 07/10/2018 CO2 26 07/10/2018 ANIONGAP 10 07/10/2018 BUN 18 07/10/2018 CREATININE 0.54 (L) 07/10/2018 GLUCOSE 89 07/10/2018 CALCIUM 8.6 07/10/2018 MAGNESIUM 0.93 07/07/2018 PHOS 3.8 07/07/2018 Hematologic Parameters Lab Results Component Value Date WBC 8.6 07/08/2018 NEUTOPHILPCT 74.9 07/08/2018 IMMGRANPCT 0.30 07/08/2018 LYMPHOPCT 17.2 07/08/2018 MONOPCT 6.5 07/08/2018 BASOPCT 0.5 07/08/2018 EOSPCT 0.6 07/08/2018 HGB 9.8 (L) 07/08/2018 HCT 30.6 (L) 07/08/2018 RBC 3.40 (L) 07/08/2018 MCV 90.0 07/08/2018 MCHC 32.0 07/08/2018 RDWSD 45.9 07/08/2018 PLATELET 376 (H) 07/08/2018 LFT and Associated Parameters Lab Results Component Value Date AST 34 (H) 06/26/2018 ALT 13 06/26/2018 ALKPHOS 74 06/26/2018 BILITOT 0.4 06/26/2018 BILIDIR 0.1 06/26/2018 ALBUMIN 2.8 (L) 06/26/2018 Coagulation Parameters Lab Results Component Value Date PT 16.3 (H) 06/26/2018 INR 1.4 06/26/2018 Diabetes Laboratory Tests Immunology Laboratory Tests Impression / Plan of Care: Problem List Items Addressed This Visit None Mrs Collado is 58-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 Non-oxygen dependent at this point with repeat PFTS suggestive of development of possible pos ARDS ILD ?? 1. 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 Pulmonary function studies do show slow improvement in bothDLCO as well as FVC and FEV1. Overall I suspect that we would arrive at her baseline at approximately a year's time. She continues to functionally improve, and today signed her paperwork to return toto work, provided that she changes her capacity to mostly desk bound job without any heavy lifting or significant outdoors exposure. I also suspect that given her previous x-ray as well as pulmonary function studies from summer 2018 she probably has developed some fibrosis and reticulated of changes in the bases of her lungs following her ARDS episode. This unfortunately does predispose her to development of interstitial lung disease in the future and therefore pulmonary follow-up, especially on annual basis is recommended. I would like for her to return in 6 months with repeat pulmonary function studies as well as a noncontrast CT chest to establish new baseline for the patient and have annual examinations thereafter. For now, no specific inhalers are prescribed as patient is able to function well without any physical limitation, provided that she is not doing heavy physical lifting edil exposed to cold temperatures. Again in the future, this patient may potentially benefit from inhaler therapy, however at this point in time she declines any inhalers, beyond her albuterol as needed. She is also a never smoker Bryan recommend that she abstains from any tobacco exposure or any noxious or hazardous chemical exposure in the future. Return to work in full capacity Is still struggling with cold weather and cough, uses albuterol prn Return to work form filled out RTC in [address] chest and PFTS same day, Dr Boothe documented in this encounter Plan of Treatment Not on file documented as of this encounter Results * Pulmonary Function Testing (11/28/2019 11:59 PM EDT) Narrative Catalino Costello MD - 11/28/2019 11:59 PM EDT Catalino Costello MD ? 12/03/2019 ??1:41 PM FVC, FEV1, FEV1/FVC within normal limits. Resting RA O2 saturation within normal limits. Diffusing capacity slightly low. IMPRESSION: Isolated abnormality in diffusing capacity, suggestive of early/mild interstitial and/or pulmonary vascular disease (assuming normal hemoglobin), of uncertain clinical significance. Sandra Zapien MD PFT ORDERABLES * CT Chest wo Contrast (Generic) (11/28/2019 10:53 AM EDT) Anatomical Region Laterality Modality Chest Computed Tomogra phy Impressions 11/28/2019 3:26 PM EDT 1. ??Scattered interstitial lung changes with septal thickening and may represent fibrotic changes/sequela of previous ARDS/influenza pneumonia. 2. ??Peritoneal nodule anterior to the left hepatic lobe is unchanged from 06/26/2018, almost certainly of benign etiology such as mesothelial cyst or peritoneal cyst. I have personally reviewed the image(s) and the resident's interpretation and agree with the findings, Siomara Morales at 11/28/2019 3:26 PM Thank you for letting us participate in the care of this patient. For questions regarding this report, please contact the number below. ? Electronically signed by: Siomara Morales [facility] ([phone]), at 11/28/2019 3:26 PM Narrative 11/28/2019 3:26 PM EDT EXAMINATION: CT CHEST WO CONTRAST (GENERIC) CLINICAL HISTORY: Shortness of breath TECHNIQUE: 3.0 mm thick axial contiguous sections were obtained through the chest via helical acquisition without intravenous contrast administration. Thin-section reconstructions as well as coronal and sagittal reformatted images were generated. COMPARISON: 07/23/2019 and 06/26/2018 CT chest exams. FINDINGS: Pulmonary parenchyma: Scattered linear and curvilinear interstitial lung changes with ??septal thickening. Airways: Widely patent. Pleura: No pleural effusion. Lymph nodes:No thoracic lymphadenopathy. Heart, pericardium, and great vessels: No significant findings. Other mediastinal structures: No significant findings. Lower neck: No significant findings. Upper abdomen: Indeterminate peritoneal nodule measuring 20 x 10 mm is unchanged from CT dated 06/26/2018. Sludge or faintly calcified gallstones layering dependently within the gallbladder. Several colonic diverticula in the left upper quadrant. Body wall soft tissues: Bilateral breast implants, as before. Skeletal structures: No suspicious osseous findings. Procedure Note Siomara Morales MD - 11/28/2019 EXAMINATION: CT CHEST WO CONTRAST (GENERIC) CLINICAL HISTORY: Shortness of breath TECHNIQUE: 3.0 mm thick axial contiguous sections were obtained throughthe chest via helical acquisition without intravenous contrastadministration. Thin-section reconstructions as well as coronal and sagittal reformattedimages were generated. COMPARISON: 07/23/2019 and 06/26/2018 CT chest exams. FINDINGS: Pulmonary parenchyma: Scattered linear and curvilinear interstitial lungchanges with septal thickening. Airways: Widely patent. Pleura: No pleural effusion. Lymph nodes:No thoracic lymphadenopathy. Heart, pericardium, and great vessels: No significant findings. Other mediastinal structures: No significant findings. Lower neck: No significant findings. Upper abdomen: Indeterminate peritoneal nodule measuring 20 x [address] dated 06/26/2018. Sludge or faintly calcified gallstones layering dependently within the gallbladder. Several colonic diverticula in theleft upper quadrant. Body wall soft tissues: Bilateral breast implants, as before. Skeletal structures: No suspicious osseous findings. IMPRESSION 1. Scattered interstitial lung changes with septal thickening and mayrepresent fibrotic changes/sequela of previous ARDS/influenza pneumonia. 2. Peritoneal nodule anterior to the left hepatic lobe is unchangedfrom 06/26/2018, almost certainly of benign etiology such as mesothelial cystor peritoneal cyst. I have personally reviewed the image(s) and the resident's interpretationand agree with the findings, Siomara Morales at 11/28/2019 3:26 PM Thank you for letting us participate in the care of this patient. Forquestions regarding this report, please contact the number below. Sandra Zapien MD IMG CT ORDERABLES documented in this encounter Visit Diagnoses Diagnosis Acute respiratory distress syndrome (ARDS)- Primary Other pulmonary insufficiency, not elsewhere classified, following trauma and surgery Cough, persistent Cough Acute respiratory distress syndrome (ARDS) Other pulmonary insufficiency, not elsewhere classified, following trauma and surgery Acute respiratory distress syndrome (ARDS) Other pulmonary insufficiency, not elsewhere classified, following trauma and surgery documented in this encounter Care Teams Construction Contractor Relationship Specialty Start Date End Date Leland Echavarria DNP PCP - General Family Medicine 08/24/18 documented as of this encounter
--- OUTSIDE RECORDS SUMMARY | 2024-01-21 14:39 | XMS_ITS | Encounter Summary ---
[place] [address] Care Team Providers Care Film And Video Graphics Designer Name Role Phone Leland Echavarria DNP Primary Care Provider Encounter Details Date Type Department Care Team (Late st Contact Info) Description 06/04/2021 Telephone [place] [address] Odalis Kirkland Social History Tobacco Use Types [...] on filedocumented in this encounter Care Teams Film And Video Graphics Designer Relationship Specialty Start Date End Date Leland Echavarria DNP PCP - General Family Medicine 08/24/18 documented as of this encounter
--- OUTSIDE RECORDS SUMMARY | 2024-01-21 14:39 | XMS_ITS | Encounter Summary ---
[place] [address] Care Team Providers Care Blueprint Tracer Name Role Phone Leland Echavarria OLGA Primary Care Provider Encounter Details Date Type Department Care Team (Latest Contact Info) Description 11/02/2018 12:36 PM EDT - 11/02/2018 11:59 PM EDT Hospital Encounter [place] [phone] Pulmonary Rehab Program, Prp None Discharge Disposition: [...] Associated Diagnosis Comments PULMONARY REHAB SESSION Routine 11/23/2018 1:01 PM EDT PULMONARY REHAB SESSION Routine 11/16/2018 1:02 PM EDT PULMONARY REHAB SESSION Routine 11/11/2018 1:02 PM EDT PULMONARY REHAB SESSION Routine 11/04/2018 1:01 PM EDT PULMONARY REHAB SESSION Routine 11/02/2018 12:58 PM EDT documented in this encounter Results * Pulmonary Rehab Session (11/23/2018 1:01 PM EDT) 11/23/2018 1:01 PM EDT Narrative [facility] - 11/23/2018 1:01 PM EDT Click on the Linked Documents ??View Image link to view the session report. Procedure Note Unknown - 11/23/2018 Click on the Linked Documents View Image link to view the sessionreport. Unknown CARDIAC REHAB ORDERA BLES Performing Organization Address [facility] de Phone Number [facility] * Pulmonary Rehab Session (11/16/2018 1:02 PM EDT) 11/16/2018 1:02 PM EDT [facility] 11/16/[facility] 1:02 PM EDT Click on the Linked Documents ??View Image link to view the session report. Procedure Note Unknown - 11/16/2018 Click on the Linked Documents View Image link to view the sessionreport. Unknown CARDIAC REHAB ORDERA BLES Performing Organization Address [facility] Co de Phone Number [facility] * Pulmonary Rehab Session (11/11/2018 1:02 PM EDT) 11/11/2018 1:02 PM EDT Narrative [facility] - 11/11/2018 1:02 PM EDT Click on the Linked Documents ??View Image link to view the session report. Procedure Note Unknown - 11/11/2018 Click on the Linked Documents View Image link to view the sessionreport. Unknown CARDIAC REHAB ORDERA BLES Performing Organization Address [facility] Co de Phone Number [facility] * Pulmonary Rehab Session (11/04/2018 1:01 PM EDT) 11/04/2018 1:01 PM EDT Narrative [facility] - 11/04/2018 1:01 PM EDT Click on the Linked Documents ??View Image link to view the session report. Procedure Note Unknown - 11/04/2018 Click on the Linked Documents View Image link to view the sessionreport. Unknown CARDIAC REHAB ORDERA BLES Performing Organization Address [facility] Co de Phone Number [facility] * Pulmonary Rehab Session (11/02/2018 12:58 PM EDT) 11/02/2018 12:5 8 PM EDT Narrative [facility] - 11/02/2018 12:58 PM EDT Click on the Linked Documents ??View Image link to view the session report. Procedure Note Unknown - 11/02/2018 Click on the Linked Documents View Image link to view the sessionreport. Unknown CARDIAC REHAB ORDERA BLES Performing Organization Address [facility] Co de Phone Number ELO documented in this encounter Visit Diagnoses Not on filedocumented in this encounter Care Teams Blueprint Tracer Relationship Specialty Start Date End Date Leland Echavarria DNP PCP - General Family Medicine 08/24/18 documented as of this encounter
--- OUTSIDE RECORDS SUMMARY | 2024-01-21 14:39 | XMS_ITS | Encounter Summary ---
[place] [address] Care Team Providers Care Freight Agent Name Role Phone Leland Echavarria OLGA Primary Care Provider Encounter Details Date Type Department Care Team (Late st Contact Info) Description 11/23/2019 Telephone [place] [address] Lakshmi Young LNA Social History Tobacco Use Types Packs/Day Years [...] encounter Miscellaneous Notes * Telephone Encounter - Lakshmi Young LNA - 11/23/2019 8:29 AM EDT Pt returned our call re appts on 11/27. Reschedule pft for after her CT and scheduled phone visit with Dr. Boothe. Pt has not been able to get the telehealth program to work. documented in this encounter Plan of Treatment Not on file documented as of this encounter Visit Diagnoses Not on filedocumented in this encounter Care Teams Freight Agent Relationship Specialty Start Date End Date Leland Echavarria DNP PCP - General Family Medicine 08/24/18 documented as of this encounter
--- OUTSIDE RECORDS SUMMARY | 2024-01-21 14:39 | XMS_ITS | Encounter Summary ---
Author Organization [facility] Address [facility] [place] [address] Care Team Providers Care Decating Machine Operator Name Role Phone Leland Echavarria OLGA Primary Care Provider [phone] Reason for Visit * Rehabilitation ([place]) - Specialty Diagnoses / Procedures Referred By Contac t Referred To Contact Pulmonary Rehabilitation Diagnoses Influenza, pneumonia Sandra Tucker MD [facility] [place] [address] Pulmonary Rehab, [facility] [address] [place] [address] Referral ID Status Reason Start Date Expiration Date V isits Requested Visits Authorized [id number] Evaluate and Treat 09/06/2018 09/06/2019 36 36 Encounter Details Date Type Department Care Team (Late st Contact Info) Description 10/19/2018 10:30 AM EDT [place] [address] Seb Le Jr., MD [facility] [place] [address] Acute respiratory distress syndrome (ARDS); ILD (interstitial lung disease); ARDS survivor Social History Tobacco Use Types [...] Sign Reading Time Taken Comments Blood Pressure 130/88 10/19/2018 10:22 AM EDT Pulse 82 10/19/2018 10:22 AM EDT Temperature - - Respiratory Rate - - Oxygen Saturation 96% 10/19/2018 10:22 AM EDT Inhaled Oxygen Concentration - - Weight 70.3 kg (155 lb) 10/19/2018 10:22 AM EDT Height 166.4 cm (5' 5.5) 10/19/2018 10:22 AM ED T Body Mass Index 25.4 10/19/2018 10:22 AM EDT documented in this encounter Progress Notes * Seb Le Jr., MD - 10/19/2018 10:30 AM EDT Pulmonary Rehabilitation Consult Reason for Consult: I was asked by Dr. Leland Ehcavarria to evaluate this patient for participation in pulmonary rehabilitation. I have personally interviewed and examined the patient, and reviewed her radiographic studies and laboratory data. HPI: Ms. Lawton is a 58 y.o. female who presents for medical clearance prior to starting pulmonary rehabilitation. She has been evaluated in [facility] by Dr. Tucker on 09/06/2018. She was hospitalized from 06/28/2018 to 07/04/2018 for acute hypoxemic respiratory distress / ARDS following influenza pneumonia. She is gradually recovering, although now has entered seasonal allergy time with tree pollen. Current respiratory symptoms include occasional cough productive of thick yellowish phlegm. No hemoptysis. Occasional (rare) wheeze. Awakens at night to go to the bathroom, but has no nocturnal dyspnea. Able to walk without dyspnea e.g. Level ground, up hills, up stairs. May need to stop to catch breath briefly after a flight of stairs. Goals of pulmonary rehabilitation include: breathing better, increasing endurance, decreasing exertional anxiety. Would like to resume hikes / long walks. Patient Active Problem List Diagnosis Code ??? Respiratory failure with hypoxia J96.91 ??? Influenza A (H1N1) J10.1 ??? Hyponatremia E87.1 ??? Acute respiratory distress syndrome (ARDS) J80 Allergies Citalopram hydrobromide and Paroxetine hcl Medications Current Outpatient Medications on File Prior to Visit Medication Sig Dispense Refill ??? sertraline (ZOLOFT) 100 mg Tablet Take 100 mg by mouth daily. ??? acyclovir (ZOVIRAX) 400 mg Tablet Take 400 mg by mouth as needed. No current facility-administered medications on file prior to visit. Social History Socioeconomic History ??? Marital status: Spouse name: Not on file ??? Number of children: Not on file ??? Years of education: Not on file ??? Highest education level: Not on file Occupational History ??? Not on file Social Needs ??? Financial resource strain: Not on file ??? Food insecurity: Worry: Not on file Inability: Not on file ??? Transportation needs: Medical: Not on file Non-medical: Not on file Tobacco Use ??? Smoking status: Former Smoker Packs/day: 1.00 Years: 15.00 Pack years: 15.00 Last attempt to quit: 06/06/2006 Years since quittin.3 ??? Smokeless tobacco: Never Used Substance and Sexual Activity ??? Alcohol use: Not Currently ??? Drug use: Never ??? Sexual activity: Not Currently Lifestyle ??? Physical activity: Days per week: Not on file Minutes per session: Not on file ??? Stress: Not on file Relationships ??? Social connections: Talks on phone: Not on file Gets together: Not on file Attends denominational service: Not on file Active member of club or organization: Not on file Attends meetings of clubs or organizations: Not on file Relationship status: Not on file ??? Intimate partner violence: Fear of current or ex partner: Not on file Emotionally abused: Not on file Physically abused: Not on file Forced sexual activity: Not on file Other Topics Concern ??? Not on file Social History Narrative ??? Not on file Review of Systems A complete review of systems was obtained. Positives are noted in the HPI. All remaining systems are negative. Physical Exam General Pleasant female in no acute respiratory distress. Vitals Pulse: 82 Resp: 18 BP: 130/88 Weight 70.3 kg (155 lb). Body mass index is 25.4 kg/m??. O2 sat 96% on RA HEENT PER, EOMI. Neck Supple, no stridor. Trachea is midline. Lungs Clear to auscultation bilaterally except for faint bibasilar crackles. Excursion is symmetric. Cardiac Regular rhythm, no murmurs. Extremities No cyanosis, clubbing, or peripheral edema. Neuro Alert and oriented to name, time, and location. Ambulates without difficulty. Objective Data Radiology 08/29/2018 CXR PA/LAT shows resolution of prior parenchymal lung process (post-ARDS) Cardiac Testing n/a Six minute walk test 417.7m in 6 minues, no stops. Walk on RA. Pulmonary Function Testing 09/06/2018 FEV1 1.94L (74%), FVC 2.36L (70%), FEV1/FVC 0.82; Dsb 53% Assessment POST-ARDS interstitial lung disease, with mild airflow limitation and moderate gas diffusion per recent PFTs. Anticipate continued improvement. Breathing techniques reviewed. Currently not using respiratory medications. [place] candidate for pulmonary rehabilitation, and anticipate continued improvement in physiologic parameters. Discussed post-ICU PTSD as well. Plan Ms. Lawton is medically cleared to participate in pulmonary rehabilitation. Patients in Pulmonary Rehabilitation who develop hemodynamic instability will be managed per the program's policies and procedures, and will be documented accordingly if needed. --Brina Le MD documented in this encounter Plan of Treatment Not on file documented as of this encounter Visit Diagnoses Diagnosis Acute respiratory distress syndrome (ARDS) Other pulmonary insufficiency, not elsewhere classified, following trauma and surgery ILD (interstitial lung disease) Postinflammatory pulmonary fibrosis ARDS survivor Personal history of other diseases of respiratory system documented in this encounter Care Teams Decating Machine Operator Relationship Specialty Start Date End Date Leland Echavarria DNP PCP - General Family Medicine 08/24/18 documented as of this encounter
--- OUTSIDE RECORDS SUMMARY | 2024-01-21 14:39 | XMS_ITS | Encounter Summary ---
[place] [address] Care Team Providers Care Harbor Engineer Name Role Phone Leland Echavarria DNP Primary Care Provider Encounter Details Date Type Department Care Team (Late st Contact Info) Description 06/03/2021 [place] [address] Odalis Kirkland Social History Tobacco Use Types [...] on filedocumented in this encounter Care Teams Harbor Engineer Relationship Specialty Start Date End Date Leland Echavarria DNP PCP - General Family Medicine 08/24/18 documented as of this encounter
--- OUTSIDE RECORDS SUMMARY | 2024-01-21 14:39 | XMS_ITS | Encounter Summary ---
Author Organization [facility] Address [facility] [place] [address] Care Team Providers Care Incident Response Lead Name Role Phone Leland Echavarria OLGA Primary Care Provider Reason for Referral * Diagnostic Test (Routine) - Closed Specialty Diagnoses / Procedures Referred By Contac t Referred To Contact Radiology Diagnoses Acute respiratory distress syndrome (ARDS) Procedures CT Chest wo Contrast (Generic) Sandra Tucker MD [facility] [place] [address] [facility] [place] [address] Referral ID Status Reason Start Date Expiration Date V isits Requested Visits Authorized [id number] Closed Specialty Service Requested 11/17/2019 05/08/2020 1 1 Reason for Visit * Diagnostic Test (Routine) - Closed Specialty Diagnoses / Procedures Referred By Contac t Referred To Contact Radiology Diagnoses Acute respiratory distress syndrome (ARDS) Procedures CT Chest wo Contrast (Generic) Sandra Tucker MD [facility] [place] [address] [facility] [place] [address] Referral ID Status Reason Start Date Expiration Date V isits Requested Visits Authorized [id number] Closed Specialty Service Requested 11/17/2019 05/08/2020 1 1 Encounter Details Date Type Department Care Team (Latest Contact Info) Description 11/28/2019 9:46 AM EDT - 11/28/2019 10:56 AM EDT Hospital Encounter CT Scan at [facility] [place] [address] Sandra Tucker MD [facility] [place] [address] Acute respiratory distress syndrome (ARDS) Discharge Disposition: Home Social History Tobacco Use [...] Procedure Name Priority Date/Time Associated Diagnosis Comments CT CHEST WO CONTRAST (GENERIC) Routine 11/28/2019 10:53 AM EDT Acute respiratory distress syndrome (ARDS) documented in this encounter Results * CT Chest wo Contrast (Generic) (11/28/2019 [...] number below. ? Electronically signed by: Siomara Morales, [facility] ([phone]), at 11/28/2019 3:26 PM Narrative 11/28/2019 3:26 [...] surgery documented in this encounter Care Teams Incident Response Lead Relationship Specialty Start Date End Date Leland Echavarria DNP PCP - General Family Medicine 08/24/18 documented as of this encounter
--- OUTSIDE RECORDS SUMMARY | 2024-01-21 14:39 | XMS_ITS | Encounter Summary ---
Author [place] [address] Care Team Providers Care Paradichlorobenzene Tender Name Role Phone Leland Echavarria OLGA Primary Care Provider Encounter Details Date Type Department Care Team (Late st Contact Info) Description 10/19/2018 11:30 AM EDT Office [place] [address] Leonela Miranda RT ARDS survivor Social History Tobacco Use Types [...] Progress Notes * Leonela Miranda RT - 10/19/2018 11:30 AM EDT Pulmonary Rehabilitation/Respiratory Therapy Services Intake Note 6 Minute Walk: Pre-Walk Vitals: BP: 122/78 HR:90 SpO2: 98% Supplemental Oxygen: room air BELGICA( dyspnea): 0 Rate of Perceived Exertion: 0 Lowest SpO2 during walk: HR:112 SpO2 :92% Supplemental Oxygen: room air BELGICA( dyspnea):2 Rate of Perceived Exertion: 2 Post-Walk Vitals: BP:162/98 HR: 115 SpO2: 92% Supplemental Oxygen: room air BELGICA( dyspnea):3 Rate of Perceived Exertion:3 Recovery: 2 minutes BP: 132/96 HR: 84 SpO2: 97% Supplemental Oxygen: room air BELGICA( dyspnea): 2 Rate of Perceived Exertion: 0 Comments: Yara Lawton walked a distance of 417.7 meters in 6 minutes with no rests. Respiratory History: Post ARDS Pulmonary fibrosis IP 06/28-07/04/2018 with severe progressive acute hypoxic respiratory failure requiring mechanical ventilation ( 6 days), Post ARDS and influenza pneumonia - hx seasonal allergies in the spring time ( tree pollen) Smoking History: quit 2006, smoked 1 ppd X 25 years, 2nd hand smoke exposure as a child Cough: in the morning and before bed time. Sputum: creamy Wheezin-3 weeks ago Orthopnea: sleeps with 1 pillow, lies on her right side, wakes up 1 time at night to void Dyspnea: walking on the level, walking upstairs, walking uphill, working in the gardens, walking upstairs- stops at the top Pedal edema: none Lung sounds: scattered rales bibasilar MDI/DPI instruction for Yara Lawton: NA BREATHING EXERCISES: Introduced concept of Pursed lip breathing to Yara Lawton She was able to demonstrate pursed lip breathing at rest. She noted decreased dyspnea utilizing pursed lip breathing at rest. Plan to practice this at rest and then with ambulation. - Introduced concept of Stacking Cough technique to Yara Lawton She was able to demonstrate stacking cough technique with mobilization of sputum. Plan to practice this at home after utilizing the Aerobika. - Introduced the Aerobika Positive Expiratory Pressure (PEP) Device to Yara Lawton Initial Settings: Level 5 Plan to do Aerobika in the morning ( up to 10 repetitions), And then in the evening ( up to 10 repetitions). Current Oxygen Therapy: none Other Medical History: - Jan 2018 was knocked over by a dog And hit my head on a railing And arms and legs were paralyzed- brought to ED with return to normal movement in approximately 1-2 hours. She noted decreased strength in her hands for another week. Muscular skeletal: Overall decrease in strength, currently working with OP PT with last visit scheduled 10/21. She utilizes the treadmill for 5 minutes at 2.5-2.8 mph Home exercise: - upper extremity and lower extremity exercises from OP PT- daily at home. -prior to May hospitalization she would walk up to 10 Miles per day at work. 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 12 stairs to the basement-laundry located there. No pets , Hobbies: reading, Enjoys going to car races, Going to the beach Nutrition: Weight loss 10-12 lbs while IP. She noted overall improved appetite Fluid Intake per day: 80 ounces of water per day - Coffee: 3-4 cups per day ETOH: 1 time per month- socially Vision: reading glasses Hearing: no issues noted Cognition: no issues noted Immunization History: There is no immunization history on file for this patient. Influenza : no Pneumococcal 23: no Prevnar 13: received today Zoster: no Tdap: unsure when her last vaccination was received Allergies Allergen Reactions ??? Citalopram Hydrobromide ??? Paroxetine Hcl Pre-screening tools: MRC: 1 PHQ9 score: 2 GAD7 JOAN-7 Patient Reported Responses 10/19/2018 Nervous, anxious (Patient) Not at all Unable to stop worrying (Patient) Not at all Worrying about different things (Patient) Not at all Trouble relaxing (Patient) Not at all Restless (Patient) Not at all Easily annoyed, irritable (Patient) Not at all Afraid something awful will happen (Patient) Not at all Difficulty (Patient) Not difficult at all JOAN-7 Score (Patient) 0 (No Anxiety) SOBQ Responses 10/19/2018 Rate my breathlessness at rest 2 Walking on a level at your own pace 1 Walking on a level with others your age 1 Walking up a hill 3 Walking up stairs 3 Eating 0 None at all Standing up from chair 0 None at all Brushing teeth 0 None at all Shaving and/or brushing 0 None at all Showering or bathing 1 Dressing 1 Picking up/Straightening 2 Doing dishes 0 None at all Sweeping/vaccuming 2 Making bed 1 Shopping 2 Doing laundry 1 Washing car 2 Mowing lawn 3 Watering lawn 2 Sexual activities 2 Shortness of breath limiting daily life 2 Fear of hurting myself 1 Fear of shortness of breath [address] Score [address] [facility] Respiratory Questionnaire: Symptoms: 47.66 Activities: 54.42 Impact: 11.43 Total: 30.08 Patient Goals for Pulmonary Rehabilitation: -Breathe better - Increase endurance/stamina - Control panic/anxiety - To walk uphill with controlled breathing - To be able to resume long walks that include hills. The program meets three times a week, typically for seven weeks and is under the direction of the medical secretary receptionist, Dr. Seb Le. The program includes monitored exercise sessions with progressive increases in exercise level as appropriate. Educational classes are also provided regarding anatomy/physiology of lung disease, breathing retraining, medications, warning signs of infection, environmental risk factors, exercise, energy conservation, stress management and relaxation techniques, coping with a chronic lung disease, nutritional and lung disease, community resources, travel and lung disease. The patient???s progress will be reviewed with the medical secretary receptionist every 2-4 weeks during the program. For details of individual class sessions, go to chart review, under the CARD/VASC tab to view imageof the daily report. Reviewed evaluation for Pulmonary rehabilitation with Dr. Seb Le on 10/19/2018 Plan: She will start the pulmonary rehabilitation/respiratory therapy services on 11/02/2018 at 12:45pm. BELGICA Scale: 0 Nothing at all 0.5 Very, very slight (just noticeable 1 Very slight 2 Slight 3 Moderate 4 Somewhat severe 5 Severe 6 7 Very severe 8 9 Very, very severe (almost maximal) 10 Maximal [employer] (MRC) Dyspnea Scale: 0: Breathless with strenuous exercise 1: Shortness of Breath when hurrying on the level or walking up a slight hill 2: Walks slower than people of the same age on the level because of breathlessness, or has to stop for breath when walking at own pace 3: Stops for breath after walking about 100 meters or after a few minutes on the level 4: Too breathless to leave the house or breathless when dressing or undressing Patient Health Questionnaire PHQ-9 For Depression- reference scores: 5-9: Minimal Symptoms 10-14: Minor Depression Dysthymia Major depression, mild 15-19: Major depression, moderately severe > = 20: Major depression, severe JOAN-7 Anxiety Severity- reference scores: 0-4: Normal 5-9: Mild Anxiety 10-14: Moderate Anxiety 15-21: Severe Anxiety UCSD Shortness of Breath Questionnaire- reference scores: Minimal score: 0- no dyspnea with activity Maximal score: 120- severe dyspnea with any [facility] Respiratory Questionnaire-reference scores: Scores range from 0 to 100, with higher scores indicating more limitations. documented in this encounter Plan of Treatment Not on file documented as of this encounter Visit Diagnoses Diagnosis ARDS survivor Personal history of other diseases of respiratory system documented in this encounter Care Teams Paradichlorobenzene Tender Relationship Specialty Start Date End Date Leland Echavarria DNP PCP - General Family Medicine 08/24/18 documented as of this encounter
--- OUTSIDE RECORDS SUMMARY | 2024-01-21 14:39 | XMS_ITS | Encounter Summary ---
Author Organization [facility] [place] [address] Care Team Providers Care Top Tile Decorator Name Role Phone Leland Echavarria OLGA Primary Care Provider [phone] Reason for Visit * Reason Comments Follow-up Encounter Details Date Type Department Care Team (Late st Contact Info) Description 12/22/2018 3:00 PM EDT Office Visit Pulmonology at [facility] [place] [id number] Sandra Tucker MD [facility] [place] [address] ARDS survivor; Other emphysema Social History Tobacco Use Types Packs/Day Years [...] Sign Reading Time Taken Comments Blood Pressure 119/73 12/22/2018 3:06 PM EDT Pulse 85 12/22/2018 3:06 PM EDT Temperature - - Respiratory Rate 20 12/22/2018 3:06 PM EDT Oxygen Saturation 95% 12/22/2018 3:06 PM EDT Inhaled Oxygen Concentration - - Weight 78.9 kg (174 lb) 12/22/2018 3:06 PM EDT Height 164.1 cm (5' 4.6) 12/22/2018 3:06 PM EDT Body Mass Index 29.31 12/22/2018 3:06 PM EDT documented in this encounter Progress Notes * Sandra Tucker MD - 12/22/2018 3:00 PM EDT Images from the original note were not included. [facility] Section of Pulmonary and Critical Care Medicine Follow-Up Visit Date of Encounter: 12/26/2018 Location: Office Referring Provider: Leland Echavarria, Misha [address] [place] [address] Pulmonary Problem List: Post ARDS syndrome Isolated DLCO decrease Fatigue Interval History: Ms Lawton is a 58-year-old female, former smoker of at least 20 pack years who presents to the pulmonary clinic today as a new patient in follow-up of her ICU admission for ARDS and influenza pneumonia. She was admitted to [facility] from May 20282018 to July 14, 2018 with severe progressive acute hypoxic respiratory failure, requiring mechanical ventilation, pronating as well as completion of multiple antibiotic therapies and Tamiflu. She has recovered significantly, since her hospitalization, and was seen in the pulmonary clinic for hospitalization follow-up in August. At that time, pulmonary rehabilitation was prescribed and patient actually underwent at least 6 or 7 sessions of pulmonary rehab with significant improvement in her breathing prior to realizing that her insurance does not actually cover this benefit. She has returned to work, and although has not been doing full duty, continues to do light work well and is thinking of returning to full work at least 4 hours a day. Overall, she is slowly improvingincluding her shortness of breath, dyspnea on exertion as well as her weight. She continues to be doing well from the standpoint of swallowing as well as food intolerances. Past Medical History: No past medical history on file. Past Surgical History: No past surgical history on file. Updated Social History: Current Medications: Medications 12/22/18 6332 Medication Sig Taking? sertraline (ZOLOFT) 100 mg Tablet Take 100 mg by mouth daily. Yes acyclovir (ZOVIRAX) 400 mg Tablet Take 400 mg by mouth as needed. Yes Adverse Drug Reactions: Allergies Allergen Reactions ??? Citalopram Hydrobromide ??? Paroxetine Hcl Review of Systems: Review of Systems Physical Examination: BP 119/73 Pulse 85 Resp 20 Ht 164.1 cm (5' 4.6) Wt 78.9 kg (174 lb) SpO2 95% BMI 29.31kg/m?? Patient is alert and oriented x3, no apparent distress, no visible respiratory accessory muscle use Pupils equal reactive to light, no jaundice noted Oropharynx is clear, no specifically abnormal dentition noted Neck: No masses, no lymphadenopathy Chest breath sounds are equal bilaterally, Velcro-like crackles are auscultated greater on the right posterior base than the left Heart S1 and S2 are regular, no rubs or gallops, no P2 distinguished Abdomen is soft nontender nondistended Extremities are warm, no edema Skin no rashes IMAGING: No new imaging SPIROMETRY: PFT Results Office Visit from 09/06/2018 in Pulmonology at [facility] PFT Results FEV1 (L) 1.94 liters FEV1 [...] post ARDS syndrome, slowly improving. Non-oxygen dependent 1. 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 Pulmonary function studies do show slow improvement in bothDLCO as well as FVC and FEV1. Overall I suspect that we would arrive at her baseline at approximately a year's time. She continues to functionally improve, and today signed her paperwork to return toat least 4 hours of full duty at her work for at least 2 months, was subsequently going back to herfull-time duty thereafter. Patient has been quite active and is been able to mow the lawn as well as participate in activities of daily living without any constraints 2. Previous history of smoking--patient does have previous history of smoking on the low currently she does not meet criteria for COPD, she does have mild emphysema on her CT scan, during her admission in May. To that extent, I would like to repeat a CT scan years time to establish a baseline and to see if any evidence of interstitial lung disease is present. This most likely will be able to give us ability to prognosticate in terms of prognosis as well as timeline for the future. RTC in [address] chest in 1 year documented in this encounter Plan of Treatment Not on file documented as of this encounter Visit Diagnoses Diagnosis ARDS survivor Personal history of other diseases of respiratory system Other emphysema documented in this encounter Care Teams Top Tile Decorator Relationship Specialty Start Date End Date Leland Echavarria DNP PCP - General Family Medicine 08/24/18 documented as of this encounter
--- OUTSIDE RECORDS SUMMARY | 2024-01-21 14:39 | XMS_ITS | Encounter Summary ---
Author Organization [facility] [place] [address] Care Team Providers Care Radio Mechanic Helper Name Role Phone Leland Echavarria OLGA Primary Care Provider Encounter Details Date Type Department Care Team (Latest Contact Info) Description 11/28/2019 10:57 AM EDT - 11/28/2019 11:59 PM EDT Hospital [place] [id number] Acute respiratory distress syndrome (ARDS) Discharge Disposition: [...] Sig Dispensed Refills Start Date End Date albuteroL (Ventolin HFA) 90 mcg/actuation HFA Aerosol Inhaler Inhale 2 puffs into the lungs every 4 hours as needed for Wheezing. Use with spacer sertraline (ZOLOFT) 100 mg Tablet Take 100 mg by mouth daily. acyclovir (ZOVIRAX) 400 mg Tablet Take 400 mg by mouth as needed. documented as of this encounter Procedure Notes * Catalino Costello MD - 11/28/2019 11:59 PM EDTAssociated Order(s): PULMONARY FUNCTION TEST FVC, FEV1, FEV1/FVC within normal limits. Resting RA O2 saturation within normal limits. Diffusing capacity slightly low. IMPRESSION: Isolated abnormality in diffusing capacity, suggestive of early/mild interstitial and/or pulmonary vascular disease (assuming normal hemoglobin), of uncertain clinical significance. documented in this encounter Plan of Treatment Not on file documented as of this encounter Procedures Procedure Name Priority Date/Time Associated Diagnosis Comments COMMON PULMONARY FUNCTION TEST Routine 11/28/2019 11:59 PM EDT Acute respiratory distress syndrome (ARDS) documented in this encounter Results * Pulmonary [...] clinical significance. Sandra Zapien MD PFT ORDERABLES documented in this encounter Visit Diagnoses Diagnosis Acute respiratory distress syndrome (ARDS) Other pulmonary insufficiency, not elsewhere classified, following trauma and surgery documented in this encounter Care Teams Radio Mechanic Helper Relationship Specialty Start Date End Date Leland Echavarria DNP PCP - General Family Medicine 08/24/18 documented as of this encounter
--- OUTSIDE RECORDS SUMMARY | 2024-01-21 14:40 | XMS_ITS | Encounter Summary ---
Author Organization [facility] [place] [address] Care Team Providers Care Guard Entrance Registrar Name Role Phone Leland Echavarria DNP Primary Care Provider [phone] Reason for Referral * Rehabilitation ([place]) - Specialty Diagnoses / Procedures Referred By Arden cunningham Referred To Contact Pulmonary Rehabilitation Diagnoses Influenza, [place] [address] Pulmonary Rehab, [facility] [address] [place] [address] Referral ID Status Reason Start Date Expiration Date V isits Requested Visits Authorized [id number] Evaluate and Treat 09/06/2018 09/06/2019 36 36 Reason for Visit * Reason Comments Referral * Consultation (Urgent) - Specialty Diagnoses / Procedures Referred By Contmarla cunningham Referred To Contact Pulmonology Diagnoses ards PNEUMONIA Leland Echavarria DNP [address] [place] [address] [facility] [place] [place] [address] Referral ID Status Reason Start Date Expiration Date V isits Requested Visits Authorized [id number] Consult, Test & Treat Connection [facility] 08/24/2018 08/24/2019 6 6 Encounter Details Date Type Department Care Team (Late st Contact Info) Description 09/06/2018 11:00 AM EDT Office Visit Pulmonology at [facility] [place] [address] Sandra Tucker MD [facility] [place] [address] Influenza, pneumonia; ILD (interstitial lung disease) Social History Tobacco Use Types Packs/Day Years Used Date Smoking Tobacco: Former Cigarettes 1 2011 Smokeless Tobacco: Never Alcohol Use Standard Drinks/Week Comments Not Currently 0 (1 standard drink = 0.6 oz pur e alcohol) Sex and Gender Information Value Date Recorded Sex Assigned at Not on file Gender Identity Not on file Sexual Orientation Not on file documented as of this encounter Last Filed Vital Signs Vital Sign Reading Time Taken Comments Blood Pressure 123/80 09/06/2018 10:28 AM EDT Pulse 97 09/06/2018 10:28 AM EDT Temperature - - Respiratory Rate 18 09/06/2018 10:28 AM EDT Oxygen Saturation 98% 09/06/2018 10:28 AM EDT Inhaled Oxygen Concentration - - Weight 76.7 kg (169 lb) 09/06/2018 10:28 AM EDT Height 164.3 cm (5' 4.7) 09/06/2018 10:28 AM ED T Body Mass Index 28.38 09/06/2018 10:28 AM EDT documented in this encounter Progress Notes * Sandra Tucker MD - 09/06/2018 11:00 AM EDT Images from the original note were not included. [facility] Section of Pulmonary and Critical Care Medicine Outpatient Consultation Date of Encounter: 09/06/2018 Referring Provider: STEPH[address] [place] [address] Reason for Evaluation: Leland Echavarria APRN referred Ms. Yara Lawton to me to evaluate and manage post ICU. I independently interviewed and examined the patient in the office and have reviewed available records. History of Present Illness: Ms Lawton is a 58-year-old female, former smoker of at least 20 pack years who presents to the pulmonary clinic today as a new patient in follow-up of her ICU admission for ARDS and influenza pneumonia. She was admitted to [facility] from May 20282018 to July 14, 2018 with severe progressive acute hypoxic respiratory failure, requiring mechanical ventilation, pronating as well as completion of multiple antibiotic therapies and Tamiflu. Initially on presentation, patient tested positive for influenza PCR and subsequently was transferred from [facility] to [facility] for further management. She was rapidly intubated upon transfer and subsequently underwent 6 days of mechanical ventilationwith 48 hours of pronation due to significant presence of ARDS. CT chest performed on initial arrival with presence of bilateral extensive pulmonary infiltrate. Patient responded to treatment and wassubsequently liberated from mechanical ventilation 6 days after her arrival here at [facility] with transition to hospitalist care. She was subsequently weaned off the oxygen and is discharged to home with physical rehabilitation. She presents to the pulmonary office today without oxygen. She states that she has not returned to work however continues to participate in physical rehabilitation, which she finds significantly helpful. She also continues to struggle with her breathing, specifically with exertion. She does state that she develops intermittent wheezing with exertion, as well as fatigue. She denies any hemoptysis hematemesis. She denies any fevers or chills. She denies any chest pain. 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 Other than her breathing, she has recovered from her ICU and hospital stay significantly. She feelsthat her strength is slowly returning and she specifically denies any significant mental distress or difficulty sleeping. She is able to concentrate well and her initial dysphasia, present after extubation, completely resolved and she currently has no specific complaints of dysphasia, odynophagia or difficulty swallowing solids or liquids. She is no longer taking any respiratory related medications, nor antibiotics. She continues on her antidepressant, which was present even prior to the hospital admission Social history: Patient is however is present here today with her boyfriend. She is a former smoker of 20 pack years. 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 No past surgical history on file. Family History: No family history of lung cancer or lung specific disease Social and Occupational History: Social History Socioeconomic History ??? Marital status: Spouse name: None ??? Number of children: None ??? Years of education: None ??? Highest education level: None Occupational History ??? None Social Needs ??? Financial resource strain: None ??? Food insecurity: Worry: None Inability: None ??? Transportation needs: Medical: None Non-medical: None Tobacco Use ??? Smoking status: Former Smoker ??? Smokeless tobacco: Never Used Substance and Sexual Activity ??? Alcohol use: Not Currently ??? Drug use: Never ??? Sexual activity: Not Currently Lifestyle ??? Physical activity: Days per week: None Minutes per session: None ??? Stress: None Relationships ??? Social connections: Talks on phone: None Gets together: None Attends buddhism service: None Active member of club or organization: None Attends meetings of clubs or organizations: None Relationship status: None ??? Intimate partner violence: Fear of current or ex partner: None Emotionally abused: None Physically abused: None Forced sexual activity: None Other Topics Concern ??? None Social History Narrative ??? None Social narrative: Ms. Lawton lives significant other in [place], [place]. 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 Previously, she worked as various. Her hobbies include reading. Animal exposures include dog . Her travel history is notable for [place]. Tuberculosis risk factors include none Current Medications at Start of Encounter: Outpatient Medications Prior to Visit Medication Sig Dispense Refill ??? sertraline (ZOLOFT) 100 mg Tablet Take 100 mg by mouth daily. ??? acyclovir (ZOVIRAX) 400 mg Tablet Take 400 mg by mouth as needed. No facility-administered medications prior to visit. Adverse Drug Reactions: Allergies Allergen Reactions ??? Citalopram Hydrobromide ??? Paroxetine Hcl Review of Systems: An 11-point ROS was negative except per the HPI. Physical Examination: BP 123/80 Pulse 97 Resp 18 Ht 164.3 cm (5' 4.7) Wt 76.7 kg (169 lb) SpO2 98% BMI 28.38kg/m?? Patient is alert and oriented x3, no [...] are warm, no edema Skin no rashes Labs: I personally reviewed relevant laboratory results which were significant for: anemia Metabolic Parameters Lab Results Component Value Date [...] 06/26/2018 INR 1.4 06/26/2018 Diabetes Laboratory Tests Autoantibodies No results for input(s): GUSTABO, ANATITER, LINDSEY, DNAABDS, DNAABDSTITER, SMANTIBODY, HISTONEAB, CANCA, PR3AB, PANCA, MYELOP, SSAROAB, SSBLAAB, CYCCITPEP, RF, SCL70, CENTSCR, D7HMLNI, JO1, MYOSITISAB in the last 7068 hours. Acute Phase Reactants No results for input(s): CRP, SEDRATE, IRON, IRONSAT, FERRITIN, FIBRINOGEN, INTERLEUKIN6, [id number], CALPROTECTIN in the last 7068 hours. Imaging: I personally reviewed imaging from CT chest from admission in June 28 reviewed, alongside multiple chest x-rays, including the one that was performed 2 days ago. Presence of persistent multifocal infiltrate, albeit much improved on the latest chest x-ray. Suspicion for mild progression to interstitial lung disease CT Scan of the Chest for Pulmonary Embolism (PE) No results found for this or any previous visit. Contrast-enhanced CT Scan of the Chest No results found for this or any previous visit. High-Resolution (non-contrast) CT Scan of the Chest No results found for this or any previous visit. PA and lateral (2-view) CXR No results found for this or any previous visit. AP CXR (1-view) Results for orders placed during the hospital encounter of 06/26/18 XR Chest PA or AP 1 view Narrative EXAMINATION: XR CHEST PA OR AP 1 VIEW CLINICAL HISTORY: serial evaluation of patient w/ influenza, slightly worse oxygenation, ?pleural effusion TECHNIQUE: 1 view of the chest COMPARISON: June 30, 2018 FINDINGS: No interval change in position of endotracheal tube, enteric feeding tube, and right-sided central venous catheter. Increased prominence of patchy consolidative opacification of both lungs with relative sparing of the apices. Impression Worsening pulmonary opacification. Unchanged appearance of the support apparatus. Thank you for letting us participate in the care of this patient. For questions regarding this report, please contact the number below. Echocardiogram: None Pulmonary Function Tests: Date FVC FEV1 Ratio TLC RV RV/TLC ERV DLCO 6MWT 09/06/2018 70% 74% 82% 53% able to walk greater than 600 m. No desaturations noted I personally reviewed flow-volume loops and other tests. Results are most consistent with restrictive disorder with contemporaneous decrease in DLCO Impression and Plan of Care: This is a 58-year-old female, status post influenza pneumonia and acute adult respiratory distress syndrome with mechanical ventilation dependence and oxygen dependence during hospitalization, currently off oxygen. 1. Post ARDS syndrome- patient continues to struggle with her breathing , specifically with any exertion. 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 Her pulmonary function tests are most consistent with presence ofrestrictive disorder and her decreased DLCO continues to demonstrate impaired oxygen/CO2 exchange in all lung parenchyma. Although at this time, it is difficult to say the extent of her chronic lung disease, I suspected probably within 6-9 months time, we would be able to definitively state her prognosis and natural history. For now, I suspect the patient most likely will continue to have some form of impairment, specifically with exertion and to that extent I am prescribing at trial, empiric prednisone for the possibly existing inflammatory component at this time. Moreover, I suspect the patient will continue to do well, if she continues to be functional and improves her endurance/physical status. Therefore, I am referring her to pulmonary rehabilitation to work on respiratory muscle as well as diaphragmatic fatigue. The majority of studies on post ARDS survival, comment on the duration of mechanical ventilation isbeing the most significant risk factor in terms of develop meant of late onset sequelae. To that extent, or patient meets criteria for medium duration of chemical ventilation, however has made significant progress and stride in terms of functional improvement. I would like to continue for her to push herself in terms of improvement of performance status and functional capacity and therefore strong support of both pulmonary rehabilitation and ongoing physical therapy are provided to the patient.In addition, I have signed a return to work paperwork that would allow the patient to lift up to 70pounds for 1 hour out of her 8-hour working day, with the subsequent 7 hours spent in sedentary/standing positions without any mechanical lifting required. 2. Dysphasia-this has resolved and patient does not currently experience any side effects of odynophagia or dysphasia 3. Neuropsychological sequela of ARDS--patient does not seem to exhibit any neuropsychological sequela of ARDS. She does continue to have insomnia, for which she remains on Seroquel therapy. She denies any specific related traumatic events or memories from the time of her ICU related stay. Would like for her to return to see me in approximately 2 months. At that time we will repeat her pulmonary function studies to evaluate for objective improvement. Subsequently, I think patient wouldneed to undergo CT chest, in approximately 6-9 months, to truly define presence of post ARDS interstitial lung disease Sandra Tucker MD [facility] PUL[facility] [address] Dept: [phone] Loc: [phone] documented in this encounter Plan of Treatment Scheduled Referrals Name Type Priority Associated Diagnoses Orde r Schedule Referral to Pulmonary Rehab Outpatient Referral Routine Influenza, pneumonia Ordered: 09/06/2018 documented as of this encounter Results * [...] Diagnoses Diagnosis Influenza, pneumonia Influenza with pneumonia ILD (interstitial lung disease) Postinflammatory pulmonary fibrosis Influenza, pneumonia Influenza with pneumonia documented in this encounter Care Teams Guard Entrance Registrar Relationship Specialty Start Date End Date Leland Echavarria DNP PCP - General Family Medicine 08/24/18 documented as of this encounter
--- OUTSIDE RECORDS SUMMARY | 2024-01-21 14:40 | XMS_ITS | Encounter Summary ---
Author Organization [facility] [place] [address] Care Team Providers Care Freight Agent Name Role Phone Leland Echavarria OLGA Primary Care Provider Encounter Details Date Type Department Care Team (Latest Contact Info) Description 09/06/2018 9:25 AM EDT - 09/06/2018 11:59 PM EDT Hospital En[place] [id number] of the chest Discharge Disposition: Home Social History Tobacco Use Types Packs/Day Years Used Date Smoking Tobacco: Former Cigarettes 1 15 1 997 - 2011 Smokeless Tobacco: Never Alcohol Use Standard [...] Take 400 mg by mouth as needed. predniSONE (DELTASONE) 20 mg Tablet Take 1 tablet by mouth daily for 14 days. 14 tablet 09/06/2018 09/20/2018 documented as of this encounter Procedure Notes * Tristin Colin MD - 09/06/2018 6:50 PM EDTAssociated Order(s): PULMONARY FUNCTION TEST Spirometry: FVC is decreased FEV1 is decreased FEV1 / FVC ratio is normal Lung Volumes: Not performed. Diffusion: DLCO is decreased Oxygen Saturation: Oxygen saturation was 98% at rest, and was 92% after 600 feet of ambulation on room air. Interpretation: This study is consistent with a restrictive pattern. Restrictive lung disease can not be confirmed without lung volumes. There is a moderate reduction in diffusing capacity. Resting oxyhemoglobin saturation is normal, and there is a significant decline with ambulation. Tristin Colin MD, 09/06/2018, 6:50 PM Pulmonary & Critical Care documented in this encounter Plan of Treatment Not on file documented as of this encounter Procedures Procedure Name Priority Date/Time Associated Diagnosis Comments COMMON PULMONARY FUNCTION TEST Routine 09/06/2018 6:[address] of the chest documented in this encounter Results * Pulmonary Function Testing (09/06/2018 6:50 PM EDT) Narrative Tristin Colin MD - 09/06/2018 6:50 PM EDT Tristin Colin MD ? 09/06/2018 ??6:51 PM Spirometry: FVC is decreased FEV1 is decreased FEV1 / FVC ratio is normal Lung Volumes: Not performed. Diffusion: DLCO is decreased Oxygen Saturation: Oxygen saturation was 98% at rest, and was 92% after 600 feet of ambulation on room air. ?? Interpretation: This study is consistent with a restrictive pattern. Restrictive lung disease can not be confirmed without lung volumes. There is a moderate reduction in diffusing capacity. Resting oxyhemoglobin saturation is normal, and there is a significant decline with ambulation. Tristin Colin MD, 09/06/2018, 6:50 PM Pulmonary & Critical Care Sandra Zapien MD PFT ORDERABLES documented in this encounter Visit Diagnoses Diagnosis Abnormal CT of the chest Nonspecific (abnormal) findings on radiological and other examination of other intrathoracic organs documented in this encounter Care Teams Freight Agent Relationship Specialty Start Date End Date Leland Echavarria DNP PCP - General Family Medicine 08/24/18 documented as of this encounter
--- OUTSIDE RECORDS SUMMARY | 2024-01-21 14:40 | XMS_ITS | Encounter Summary ---
[place] [address] Care Team Providers Care Timber Robber Name Role Phone Leland Echavarria OLGA Primary Care Provider Encounter Details Date Type Department Care Team (Late st Contact Info) Description 09/30/2018 [place] [address] Leonela Miranda RT Social History Tobacco Use Types Packs/Day Years Used Date Smoking Tobacco: Former Cigarettes 1 15 - 2011 Smokeless Tobacco: Never Alcohol Use Standard Drinks/Week Comments Not Currently 0 (1 standard drink = 0.6 oz pur e alcohol) Sex and Gender Information Value Date Recorded Sex Assigned at Not on file Gender Identity Not on file Sexual Orientation Not on file documented as of this encounter Miscellaneous Notes * Telephone Encounter - Leonela Miranda RT - 09/30/2018 8:41 AM EDT Called Yara Lawton at home in follow up to her voice message regarding pulm rehab. She connected with [facility] pulmonary rehab, but their programs are held in the late afternoon (3:30-4:30 pm) And she works Wednesday-Wednesday at 3 pm at the [employer] in [place], [place]. Reviewed time/program structure of pulmonary rehab at [facility] and she noted that this would be better with her work schedule. Plan: pulmonary rehab evaluation on 10/19/2018 at 10:30 am including 6 minute walk. documented in this encounter Plan of Treatment Not on file documented as of this encounter Visit Diagnoses Not on filedocumented in this encounter Care Teams Timber Robber Relationship Specialty Start Date End Date Leland Echavarria DNP PCP - General Family Medicine 08/24/18 documented as of this encounter
--- OUTSIDE RECORDS SUMMARY | 2024-01-21 14:40 | XMS_ITS | Encounter Summary ---
Author Organization [facility] Address [facility] [place] [address] Care Team Providers Care Aircraft Mechanic Electrical And Radio Name Role Phone Dharmesh Catalina Parks APRN Primary Care Provider Encounter Details Date Type Department Care Team (Late st Contact Info) Description 07/20/2018 Ancillary Procedure Radiology Library at [facility] [place] [address] Sandra Tucker MD [facility] [place] [address] Social History Tobacco Use Types Packs/Day Years Used Date Smoking Tobacco: Some Days Smokeless Tobacco: Never Alcohol Use Standard Drinks/Week [...] Associated Diagnosis Comments FILM LIBRARY STORAGE ONLY DX CHEST Routine 07/20/2018 12:00 AM EST documented in this encounter Results * Film Library- Storage Only DX Chest (07/20/2018 12:00 AM EST) Narrative RAD - 08/31/2018 7:11 PM EDT This exam is auto-finalizing. It's purpose is for storage only. Sandra Zapien MD IMG FILM LIBRARY ORDERABLES Performing Organization Address City/State/[facility] Co de Phone Number [place], [place] documented in this encounter Visit Diagnoses Not on filedocumented in this encounter Care Teams Aircraft Mechanic Electrical And Radio Relationship Specialty Start Date End Date Catalina Barroso APRN PCP - General Family Medicine 05/20/18 08/23/18 documented as of this encounter
--- OUTSIDE RECORDS SUMMARY | 2024-01-21 14:40 | XMS_ITS | Encounter Summary ---
Author Organization [facility] Address [facility] [place] [address] Care Team Providers Care Women'S Activities Adviser Name Role Phone Leland Echavarria OLGA Primary Care Provider [phone] Encounter Details Date Type Department Care Team (Late st Contact Info) Description 08/25/2018 Orders Only Pulmonology at [facility] [place] [address] Sandra Tucker MD [facility] [address] [place] [address] of the chest Social History Tobacco Use Types Packs/Day Years [...] and other examination of other intrathoracic organs Abnormal CT of the chest Nonspecific (abnormal) findings on radiological and other examination of other intrathoracic organs documented in this encounter Care Teams Women'S Activities Adviser Relationship Specialty Start Date End Date Leland Echavarria DNP PCP - General Family Medicine 08/24/18 documented as of this encounter
--- OUTSIDE RECORDS SUMMARY | 2024-01-21 14:40 | XMS_ITS | Encounter Summary ---
[place] [address] Care Team Providers Care Supervisor Claims Name Role Phone Leland Echavarria OLGA Primary Care Provider Encounter Details Date Type Department Care Team (Late st Contact Info) Description 09/16/2018 [place] [address] Leonela Miranda RT Social History Tobacco Use Types Packs/Day Years Used Date Smoking Tobacco: Former Cigarettes 1 15 2011 Smokeless Tobacco: Never Alcohol Use Standard Drinks/Week Comments Not Currently 0 (1 standard drink = 0.6 oz pur e alcohol) Sex and Gender Information Value Date Recorded Sex Assigned at Not on file Gender Identity Not on file Sexual Orientation Not on file documented as of this encounter Miscellaneous Notes * Telephone Encounter - Leonela Miranda RT - 09/16/2018 11:21 AM EDT Called Yara Lawton at home, reviewed referral for pulmonary rehab and programs near her home. Plan: forward pulmonary rehab referral to [facility]. Provided Yara their contact information also. documented in this encounter Plan of Treatment Not on file documented as of this encounter Visit Diagnoses Not on filedocumented in this encounter Care Teams Supervisor Claims Relationship Specialty Start Date End Date Leland Echavarria DNP PCP - General Family Medicine 08/24/18 documented as of this encounter
--- OUTSIDE RECORDS SUMMARY | 2024-01-21 14:40 | XMS_ITS | Encounter Summary ---
Author Organization [facility] Address [facility] [place] [address] Care Team Providers Care Anesthesiology Technologist Name Role Phone Leland Echavarria OLGA Primary Care Provider [phone] Encounter Details Date Type Department Care Team (Late st Contact Info) Description 08/29/2018 Ancillary Procedure [place] [address] Sandra Tucker MD [facility] [place] [address] Social History Tobacco Use Types Packs/Day Years [...] FILM LIBRARY STORAGE ONLY DX CHEST Routine 08/29/2018 12:00 AM EDT documented in this encounter Results * Film Library- Storage Only DX Chest (08/29/2018 12:00 AM EDT) [facility]ative [facility] - 08/31/2018 7:10 PM EDT This exam is auto-finalizing. It's purpose is for storage only. Sandra Zapien MD IMG FILM LIBRARY ORDERABLES Performing Organization Address City/State/[facility] Co de Phone Number [place], [place] documented in this encounter Visit Diagnoses Not on filedocumented in this encounter Care Teams Anesthesiology Technologist Relationship Specialty Start Date End Date Leland Echavarria DNP PCP - General Family Medicine 08/24/18 documented as of this encounter
--- OUTSIDE RECORDS SUMMARY | 2024-01-21 14:40 | XMS_ITS | Encounter Summary ---
[place] [address] Care Team Providers Care Leather Leveler Name Role Phone Leland Echavarria OLGA Primary Care Provider Encounter Details Date Type Department Care Team (Late st Contact Info) Description 09/27/2018 Telephone [place] [address] Fernando Beth Social History Tobacco Use Types Packs/Day Years Used Date Smoking Tobacco: Former Cigarettes 1 7 - 2011 Smokeless Tobacco: Never Alcohol Use Standard Drinks/Week Comments Not Currently 0 (1 standard drink = 0.6 oz pur e alcohol) Sex and Gender Information Value Date Recorded Sex Assigned at Not on file Gender Identity Not on file Sexual Orientation Not on file documented as of this encounter Miscellaneous Notes * Telephone Encounter - Fernando Beth - 09/27/2018 11:32 AM EDT Patient called, stating that she had not yet received a call from [facility] Pulm Rehab, and was wondering if her referral had been sent yet. Confirmed that it was sent out on 09/16. Patient states that she spoke with someone (after being transferred to three departments), and thatthey had not received it. Let patient know that I would call the Pulm Rehab department to confirm their fax number, and would resend the referral. Called [facility] to confirm fax number. [facility] also confirmed that they did have the referral for this patient, and would reach out to schedule her. documented in this encounter Plan of Treatment Not on file documented as of this encounter Visit Diagnoses Not on filedocumented in this encounter Care Teams Leather Leveler Relationship Specialty Start Date End Date Leland Echavarria DNP PCP - General Family Medicine 08/24/18 documented as of this encounter
--- OUTSIDE RECORDS SUMMARY | 2024-01-21 14:40 | XMS_ITS | Encounter Summary ---
[place] [address] Care Team Providers Care Maintenance And Repair Worker Name Role Phone Leland Echavarria DNP Primary Care Provider Encounter Details Date Type Department Care Team (Late st Contact Info) Description 09/16/2018 Telephone [place] [address] Leonela Miranda RT Social History Tobacco Use [...] Encounter - Leonela Miranda RT - 09/16/2018 11:25 AM EDT faxed pulmonary rehab referral and agronomy supervisor note to [facility] pulmonary rehab program documented in this encounter Plan of Treatment Not on file documented as of this encounter Visit Diagnoses Not on filedocumented in this encounter Care Teams Maintenance And Repair Worker Relationship Specialty Start Date End Date Leland Echavarria DNP PCP - General Family Medicine 08/24/18 documented as of this encounter
--- OUTSIDE RECORDS SUMMARY | 2024-01-21 14:41 | XMS_ITS | Clinical Summary ---
Author Organization [facility] Address [address] [place] [address] Care Team Providers Care Fire Hydrant Operator Name Role Phone Catalina Barroso APRN Primary Care Provider [phone] Social History Tobacco Use Types Packs/Day Years Used Date Smoking Tobacco: Never Assessed Interpersonal Safety Answer Date Record ed Physically Hurt Never 12/31/2019 Verbally Threaten Not on file 12/31/2019 Sex and Gender Information Value Date Recorded Sex Assigned at Not on file Gender Identity Not on file Sexual Orientation Not on file Plan of Treatment Health Maintenance Due Date Last Done Comments Hepatitis C Screen 1960 RSV Immunization ( o r 60+ Years) (1 - 1-dose 60+ series) 2018 COVID-19 Vaccine (2022-24 season) 2023 Fall Risk Screening 2023 Care Teams Fire Hydrant Operator Relationship Specialty Start Date End Date Catalina Barroso APRN [address] [place] [address] PCP - General 03/22/18
--- OUTSIDE RECORDS SUMMARY | 2024-01-21 14:41 | XMS_ITS | Encounter Summary ---
Author Organization [facility] Address [facility] [place] [address] Care Team Providers Care Corduroy Brusher Operator Name Role Phone Lucy Brock APRN Primary Care Provider + Reason for Visit * Reason Comments Rosacea Encounter Details Date Type Department Care Team (Late st Contact Info) Description 05/19/2018 2:00 PM EST Office Visit Dermatology at [facility] [address] [place] [address] Daisha Butt MD [facility] [address] [place] [address] Mayelin Sands PA [facility] [address] [place] [address] Seborrheic dermatitis Social History Tobacco Use Types Packs/Day Years Used Date Smoking Tobacco: Never Smokeless Tobacco: Never Sex and Gender Information Value Date Recorded Sex Assigned at Not on file Gender Identity Not on file Sexual Orientation Not on file documented as of this encounter Patient Instructions * Patient Instructions* Isael Eddy M - 05/19/2018 2:00 PM EST CHEMICAL PEEL GENERAL INFORMATION A chemical peel is a technique used to improve the appearance of the skin on the face, neck or hands. A chemical solution is applied to the skin and causes it to exfoliate and eventually peel off. The new, regenerated skin is smoother, more evenly pigmented, more clear of acne and appears overall more healthy. The new skin is also temporarily more sensitive to the sun and other irritants so peels do require precautions. There are three basic types of chemical peels: superficial, medium and deep chemical peels. Deep chemical peels require IV sedation and are not performed in our office. Medium depth chemical peels penetrate through the entire epidermis, into the superficial dermis and can have a more significant effect on scarring and wrinkles. But they have significant downtime, requiring a full 2 weeks before the skin is fully healed. Medium depth peels are less commonly performed in our office now that lasers can be used to penetrate to the same depth without the prolonged healing. Superficial chemical peels come in various forms and strengths. They penetrate to different depths within the epidermis and cause peeling that ranges from barely perceptible to noticeable for 5-7 days. Most of the peels we offer are within the superficial peel category and each has its different advantages. Good planning will maximize safety and benefits. Preconditioning is critical to results. This is done by establishing a daily skin care routine that helps to transform the skin. Sensitive, intolerant, dry skin has a higher risk of side effects and absolutely must be strengthened first with skin care. A daily program that includes a retinoid and potent antioxidants will help strengthen the skin???s barrier and condition it to respond well to the peel procedure. Chemical peels are used to treat a number of conditions including: Acne scars Actinic keratoses Aging skin Fine lines Large pores Melasma or other forms of uneven skin color Sun damage Sun spots (lentigines) Wrinkles Rosacea Chemicals peels sting but do not cause a great deal of pain. The gentlest peels use alpha-hydroxy, glycolic, lactic or fruit acids and are not painful. Our more advanced superficial peels (Vi Peels) are formulated with numbing to offset the discomfort that can be associated with peels of this strength. With stronger superfiical peels, there is often one night of itchy, uncomfortable skin. Antihistamines (Benadryl) may be helpful but are not necessary as this resolves quickly. BEFORE AND AFTER CHEMICAL PEEL INSTRUCTIONS BEFORE ?? Tell your doctor if you have a tendency to pick at your skin. Peels can be an irresistible trigger for a person to pick and this can be damaging. This is an important consideration in finding the best treatment for you. ?? Tell your doctor if you have a history of cold sores. We will give a medication that will prevent an outbreak. ?? Stop all retinoids (Brightenex, Retamax, Differin, Tretinoin, Retin A, Radical Night Repair, Adapalene, etc) 5 nights before your peel. In some cases, with repeated peels, your provider may ask you to continue your retinoid up until the day of the peel. ?? Stop all alpha hydroxy acids (Invisapeel, Glycogent, Vitascrub or other lactic acid, glycolic acid or salicylic acid products). In some cases, with repeated peels, your provider may ask you to continue your hydroxy acid product right up until the day of the peel. ?? Stop all abrasive scrubs (Exfoliating Lao, Vitascrub or other) 5 days before your procedure. In some cases, with repeated peels, your provider may ask you to continue your abrasive scrub right up until the day of the peel. ?? Avoid sun exposure for 2 weeks before and after your peel. ?? Plan to avoid heavy sweating if you are having a peel that gives more significant peeling (Vi Peel, TCA peel and Salicylic Acid peels). This ranges from 1-5 days, depending on the peel. ?? Avoid waxing or plucking for 5 days before the procedure. AFTER ?? Vi Peel patients must follow their special instructions in the booklet included in their post peel kit ?? Avoid sun exposure. Anytime the skin is pink, red or sensitive it is at risk of further damage and discoloration when exposed to the sun. Wear a broad brimmed hat and don???t let direct sunlight shine on your skin (even through sunscreen) until it has completely healed. This can take 3-14 days with our range of peels. ?? Avoid sweating heavily until skin has finished peeling. ?? Wash your face twice daily with cleanser and toner suggested by your provider ?? Wear sunscreen and reapply every 2 hours. ?? Keep at broad brimmed hat on when in the sun ?? Expect the following as normal, temporary possible stages your skin may pass through: ?? Initial redness ?? Temporary skin darkening (and/or what some call a leathery, tanned look, or can look like dark brown, burned skin in darker skin types) ?? Peeling that ranges from just a gritty feel to the skin to obvious, large flakes ?? Temporary flare of acne or rosacea with diffuse small red bumps or an increase in pimples. Relax! This will pass and bring clearer skin. ?? Prepare a vinegar solution using 1 tspn of white household vinegar (ITM Powerer vinegar works too) per cup of water. Dab the skin with this solution, using cotton gauze after cleansing and before applying moisturizer and sunscreen. Do this several times a day during the peeling phase or wheneverthere is sensitivity. Some patients keep this preparation chilled in the refrigerator for optimal soothing. ?? DO NOT PICK. If you pick at the skin you will expose skin that isn???t ready to be exposed.This can permanently scar or darken your skin. Any time you are tempted you should use the vinegar soaks instead. ?? Avoid your exfoliating scrub for 3-7 days, depending on the intensity of your peel. If you stillfeel sensitive, don???t use it. ?? Resume your full skincare program as soon as all peeling and redness has resolved (3-10 days). If you have any questions before or after your procedure please call our clinic: [phone] If you have an emergency after hours please call Dr. Herrera's cell: [phone] documented in this encounter Progress Notes * Daisha Butt MD - 05/19/2018 2:00 PM EST DERMATOLOGY - NEW PATIENT NOTE Date of service: 05/19/2018 Yara Lawton : 1960, 57 y.o. CC: Chief Complaint Patient presents with ??? Rosacea HPI: Yara Lawton is a 57 y.o. female self-referred for possible rosacea. She reports that her skin is very dry and peels on the medial cheeks. She has tried many different moisturizers, but none of them seems to help. She has also tried Metrocream. Denies involvement of the scalp, posterior earcreases, eyebrows or glabella. Relevant Skin History: - Okay to leave detailed message with results? Yes - None Family History: Melanoma: None Relevant Social History: - Medications: Current Outpatient Medications Medication Sig Dispense Refill ??? SERTRALINE HCL (ZOLOFT ORAL) ??? clonAZEpam (KLONOPIN) 0.25 mg disintegrating tablet No current facility-administered medications for this visit. Allergies: Allergies Allergen Reactions ??? Citalopram Hydrobromide ??? Paroxetine Hcl Review of Systems: - General: Feels well. - Skin: No other skin concerns. Examination: - Constitutional: Patient was alert, well-appearing and in no noticeable distress. - Skin: A focused examination of the face was performed. Diagnosis/Skin findings/Assessment/Plan: 1. Seborrheic dermatitis - Subtle greasy scale of the nasolabial folds. - Patient consulted with Isael about skin care options. - Rx: Ketoconazole 2% cream - Apply to affected areas on the face daily until clear and then 1-2 times weekly. LOS: [id number] RTC: PRN Note initiated by Laura Hopper CMA. I, Ruchi Grover, have performed the documentation for this encounter in the presence of and acting as a scribe for Mayelin Sands PA-C (Bri). I performed the services which were documented by the scribe, and I agree with the accuracy of the documentation in this encounter. Mayelin Sands PA-C (Bri) Reviewed and signed by Mayelin Sands PA-C [facility] Patient seen in conjunction with staff tool and die designer: Daisha Butt MD Section of Dermatology [facility] * Daisha Butt MD - 05/19/2018 2:00 PM EST I saw this patient in conjunction with Thea Sands PA-C during this office visit. Thea Sands PA-C presented the history and physical exam to me. I then saw and examined this patient with Thea Sands PA-C. We reviewed the history and pertinent details and I confirmed the physical findings. We discussed the care plan. I agree with the details of the history and physical exam as documented in Thea Sands PA-C's note. documented in this encounter Plan of Treatment Not on file documented as of this encounter Visit Diagnoses Diagnosis Seborrheic dermatitis Seborrheic dermatitis, unspecified documented in this encounter Care Teams Corduroy Brusher Operator Relationship Specialty Start Date End Date Lucy Brock, STEPHANIE PCP - General 04/22/10 05/19/18 documented as of this encounter
--- OUTSIDE RECORDS SUMMARY | 2024-01-21 14:41 | XMS_ITS | Encounter Summary ---
Author Organization [facility] Address [facility] [place] [address] Care Team Providers Care Documentation Spec Name Role Phone Catalina Barroso APRN Primary Care Provider [phone] Encounter Details Date Type Department Care Team (Late st Contact Info) Description 05/30/[address] [facility] [address] [place] [address] Isael Eddy RN Social History Tobacco Use Types Packs/Day Years Used Date Smoking Tobacco: Never Smokeless Tobacco: Never Sex and Gender Information Value Date Recorded Sex Assigned at Not on file Gender Identity Not on file Sexual Orientation Not on file documented as of this encounter Miscellaneous Notes * Telephone Encounter - Shena Arevalo - 05/30/2018 10:29 AM EST Called Yara Lawton to schedule a skin care consult with Isael. Left voicemail for patient to call back. documented in this encounter Plan of Treatment Not on file documented as of this encounter Visit Diagnoses Not on filedocumented in this encounter Care Teams Documentation Spec Relationship Specialty Start Date End Date Catalina Barroso APRN PCP - General Family Medicine 05/20/18 08/23/18 documented as of this encounter
--- OUTSIDE RECORDS SUMMARY | 2024-01-21 14:41 | XMS_ITS | Encounter Summary ---
Author Organization [facility] Address [address] [place] [address] Care Team Providers Care Bilingual Student Tutor Name Role Phone Unavailable Primary Care Provider Unavailabl e Encounter Details Date Type Department Care Team (Late st Contact Info) Description 06/25/2008 Before PRISM Converted Visit (Maple) [facility] - Maple conversion [address] [place] [address] Albert Jasso MD [address] [place] [address] [id number] Social History Tobacco Use Types Packs/Day Years Used Date Smoking Tobacco: Never Assessed Sex and Gender Information Value Date Recorded Sex Assigned at Not on file Gender Identity Not on file Sexual Orientation Not on file documented as of this encounter Plan of Treatment Not on file documented as of this encounter Procedures Procedure Name Priority Date/Time Associated Diagnosis Comments SURGICAL PATHOLOGY Routine 06/25/2008 0:00 EST documented in this encounter Results * SURGICAL PATHOLOGY (06/25/2008 0:00 EST) Pathology Report: SURGICAL PATHOLOGY REPORT ? Reports generated via electronic interface contain original data; ? however they are lacking the format of the original report. ? Caution should be taken when reading/interpreti ng unformatted reports. ? Name: ? YARA ZHENG ? Accession #: ? [id number] ? : ? 1960 (Age: 48) ??F ? Collect Date: ? 06/25/2008 ? Location: ? [facility] ? Receive Date: ? 06/25/2008 ? Provider: ALBERT JASSO MD ? Copy to: DANIEL HERNANDEZ [employer] SUPERINTENDENT ? Final Pathologic Diagnosis: ? A. ?Nasal turbinate, right, excision: ? 1. ?Turbinate tissue with chronic inflammation, stromal edema and ? vascular congestion. ? 2. ? Fragments of mature hyaline cartilage and lamellar bone with no specific pathologic features. ? B. ?Nasal turbinate, left, excision: ? 1. ?Turbinate tissue with chronic inflammation, stromal edema and ? vascular congestion. ? 2. ? Lamellar bone with no specific pathologic features. ? Document reviewed and electronically signed by: ? La Bonilla, MD ? Report ??Date: 06/28/2008 14:29 ? By the signature above, the attending physician certifies that he/she has ? personally conducted a gross and/or microscopic examination of the described ? specimens and rendered or confirmed the above diagnosis. ? Specimen(s) Received: ? A. ?Right turbinate & cartilage & bone ? B. ? Left turbinate ? Clinical History: ? DNS, inf turb hypertrophy, CNO ? Gross Description: ? Received in formalin labelled Beliveau and right turbinate with ? cartilage and bone are multiple anton-white portions of cartilage and bone ? measuring 3.5 x 1.8 x 0.8 cm in aggregate. ??An intermediate tissue is surfaced ?? by a purcell, smooth to wrinkled mucosa. ??Approximately 50% of the specimen is ? submitted as (A1) and (A2). ? Received in formalin labelled Beliveau and left turbinate is a purcell-pink, ? ovoid, unoriented soft tissue measuring 3.0 x 0.6 x 0.5 cm and is partially ? surfaced by a purcell, smooth to wrinkled mucosa. ??The cut surfaces reveal a ? anton-white portion of unremarkable cartilage. ??The specimen is bisected and ? entirely submitted as (B). ??(Renata Mazariegos)/kina ? End of Report ? [facility] 06/25/2008 06/25/2008 16: 39 EST Albert Jasso MD PATHOLOGY ORDERABLES [facility] [address] [place] [address] documented in this encounter Visit Diagnoses Not on filedocumented in this encounter
--- OUTSIDE RECORDS SUMMARY | 2024-01-21 14:41 | XMS_ITS | Encounter Summary ---
Author Organization [facility] Address [address] [place] [address] Care Team Providers Care Wholesale Parts Salesperson Name Role Phone Unavailable Primary Care Provider Unavailabl e Encounter Details Date Type Department Care Team (Late st Contact Info) Description 08/10/2005 Results Only [facility] - Maple conversion [address] [place] [address] Daniel Brock, BLADIMIR [address] [place] [address] Social History Tobacco Use Types Packs/Day Years Used Date Smoking Tobacco: Never Assessed Sex and Gender Information Value Date Recorded Sex Assigned at Not on file Gender Identity Not on file Sexual Orientation Not on file documented as of this encounter Plan of Treatment Not on file documented as of this encounter Procedures Procedure Name Priority Date/Time Associated Diagnosis Comments CYTOPATHOLOGY Routine 08/10/2005 0:00 EST documented in this encounter Results * CYTOPATHOLOGY (08/10/2005 0:00 EST) Pathology Report: CYTOPATHOLOGY REPORT Reports generated via electronic interface contain original data; however they are lacking the format of the original report. Caution should be taken when reading/interpreti ng unformatted reports. Name: ? YARA ZHENG ? Accession #: ? [id number] : ? 1960 (Age: 45) ??F ?Collect Date: ? 08/10/2005 Location: ? [facility] ? Receive Date: ? 08/12/2005 Provider: ?DANIEL BROCK SITE SAFETY REPRESENTATIVE Copy to: ? Specimen/Source: ?ThinPrep Pap Test, Cervix/Endocervix, processed on [facility] ThinPrep Imaging System, with manual evaluation Last Menstrual Period: ? 07/30/05 Other: ? HPVA - HPV testing requested if ASC-US on the current ThinPrep Pap test. ? SPECIMEN ADEQUACY ? Satisfactory for Evaluation - transformation zone component present - scant squamous epithelial component secondary to excessive inflammation GENERAL CATEGORIZATION ? Negative for Intraepithelial Lesion or Malignancy ? Document reviewed and electronically signed by: ? MAYA Hager(ASCP) ? Report Date: ??08/14/2005 14:42 End of Report [facility] 08/10/2005 08/12/2005 Daniel Brock NP PATHOLOGY ORDERABLES [facility] [address] [place] [address] documented in this encounter Visit Diagnoses Not on filedocumented in this encounter
--- OUTSIDE RECORDS SUMMARY | 2024-01-21 14:41 | XMS_ITS | Encounter Summary ---
Author Organization [facility] Address [address] [place] [address] Care Team Providers Care Mold Parter Name Role Phone Lucy Brock NP Primary Care Provider Encounter Details Date Type Department Care Team (Late st Contact Info) Description 03/14/[address] [facility] [phone] Shanice Ibarhim MD [address] [place], [place] [id number] Social History Tobacco Use Types Packs/Day Years Used Date Smoking Tobacco: Never Assessed Sex and Gender Information Value Date Recorded Sex Assigned at Not on file Gender Identity Not on file Sexual Orientation Not on file documented as of this encounter Plan of Treatment Not on file documented as of this encounter Procedures Procedure Name Priority Date/Time Associated Diagnosis Comments SURGICAL PATHOLOGY Routine 03/14/2018 8:33 EDT documented in this encounter Results * SURGICAL PATHOLOGY (03/14/2018 8:33 EDT) Pathology Report: SURGICAL PATHOLOGY REPORT Reports generated via electronic interface contain original data; however they are lacking the format of the original report. Caution should be taken when reading/interpret ing unformatted reports. Name: ? YARA ZHENG ? Accession #: ? [id number] ? : ? 1960 (Age: 57) ??F ? Collect Date: ? 03/14/2018 ? Location: ? [facility] ? Receive Date: ? 03/14/2018 ? Provider: SHANICE IBRAHIM MD Copy to: ABIGAIL HALL DRY HOUSE WORKER ? Final Pathologic Diagnosis: COLON, SIGMOID, POLYP, BIOPSY: - Tubular adenoma. Document reviewed and electronically signed by: EDWIN BINGHAM MD Report ??Date: 03/16/2018 21:38 By the signature above, the attending physician certifies that he/she has personally conducted a gross and/or microscopic examination of the described specimens and rendered or confirmed the above diagnosis. Specimen(s) Received: Sigmoid polyp Clinical History: Colon cancer screening Gross Description: ? Received in formalin labelled with proper patient identification (initials B, D) and sigmoid polyp are five purcell-white tissues (0.3 x 0.3 x 0.1 cm to 0.1 x 0.1 x 0.1 cm). Entirely submitted in 1 and 2. Nilda Sheridan 03/15/2018 9:05 AM End of Report [facility] 03/14/2018 8:33 EDT 03/14/2018 8:33 EDT Shanice Ibrahim MD PATHOLOGY ORDERA ZORAIDA [facility] [address] [place] [address] documented in this encounter Visit Diagnoses Not on filedocumented in this encounter Care Teams Mold Parter Relationship Specialty Start Date End Date Lucy Brock NP [address] [facility] [place] [address] PCP - General 04/05/15 03/21/18 documented as of this encounter
--- OUTSIDE RECORDS SUMMARY | 2024-01-21 14:41 | XMS_ITS | Encounter Summary ---
Author Organization [facility] Address [address] [place] [address] Care Team Providers Care Keg Header Name Role Phone Unavailable Primary Care Provider Unavailabl e Encounter Details Date Type Department Care Team (Late st Contact Info) Description 06/04/2009 Orders Only [facility] - [facility] [address] [place] [address] Daniel Hernandez NP [address] [place] [address] Social History Tobacco Use Types [...] Priority Date/Time Associated Diagnosis Comments CYTOPATHOLOGY Routine 06/04/2009 0:00 EST documented in this encounter Results * CYTOPATHOLOGY (06/04/2009 0:00 EST) Pathology Report: CYTOPATHOLOGY REPORT ? Reports generated via electronic interface contain original data; ? however they are lacking the format of the original report. ? Caution should be taken when reading/interpreti ng unformatted reports. ? Name: ? YARA ZHENG ? Accession #: ? [id number] ? : ? 1960 (Age: 48) ??F ?Collect Date: ? 06/04/2009 ? Location: ? [facility] ? Receive Date: ? 06/05/2009 ? Provider: ?DANIEL HERNANDEZ NP ? Copy to: ? Specimen/Source: ?Pap Test, Cervix/Endocervix, ThinPrep Imaging System ? with manual evaluation ? Last Menstrual Period: ? 12/05/09 ? Other: ? HPVA - HPV testing requested if ASC-US on the current ThinPrep Pap test. ? SPECIMEN ADEQUACY ? Satisfactory for Evaluation ? - transformation zone component present ? GENERAL CATEGORIZATION ? Negative for Intraepithelial Lesion or Malignancy ? INTERPRETATION ? Reactive cellular changes associated with inflammation present (includes ?? repair). ? Document reviewed and electronically signed by: ? Glenna C. Martell, MD ? Report Date: ??06/07/2009 18:58 ? End of Report ? [facility] 06/04/2009 06/05/2009 Daniel Hernandez WORM PACKER PATHOLOGY ORDERABLES [facility] [address] [place] [address] documented in this encounter Visit Diagnoses Not on filedocumented in this encounter
--- OUTSIDE RECORDS SUMMARY | 2024-01-21 14:41 | XMS_ITS | Encounter Summary ---
Author Organization [place] [address] Care Team Providers Care Skin Carver Name Role Phone Catalina Barroso APRN Primary Care Provider [phone] Encounter Details Date Type Department Care Team (Late st Contact Info) Description 06/26/2018 [place] [address] Roderick Hughes MD [facility] [place] [address] Social History Tobacco Use Types Packs/Day Years [...] on filedocumented in this encounter Care Teams Skin Carver Relationship Specialty Start Date End Date Catalina Barroso APRN PCP - General Family Medicine 05/20/18 08/23/18 documented as of this encounter
--- OUTSIDE RECORDS SUMMARY | 2024-01-21 14:41 | XMS_ITS | Encounter Summary ---
Author Organization [facility] [place] [address] Care Team Providers Care Mri Manager Name Role Phone Lucy rBock APRN Primary Care Provider + Encounter Details Date Type Department Care Team (Late st Contact Info) Description 10/05/2013 - 10/05/2013 11:59 PM EDT Hospital Encounter [place] [phone] Dr Kristen Temporary Screening Discharge Disposition: Home Social History Tobacco Use Types Packs/Day Years Used Date Smoking Tobacco: Never Assessed Sex and Gender Information Value Date Recorded Sex Assigned at Not on file Gender Identity Not on file Sexual Orientation Not on file documented as of this encounter Medications at Time of Discharge Medication Sig Dispensed Refills Start Date End Date clonAZEpam (KLONOPIN) 0.25 mg disintegrating tablet 11/30/20032018 documented as of this encounter Plan of Treatment Not on file documented as of this encounter Procedures Procedure Name Priority Date/Time Associated Diagnosis Comments FILM LIBRARY STORAGE ONLY MAMMO Routine 10/05/2013 12:00 AM EDT Screening documented in this encounter Results * Film Library- Storage only Mammo (10/05/2013 12:00 AM EDT) Narrative [facility] - 10/08/2015 12:24 AM EDT This exam is for storage only and is auto-finalizing. [facility] FILM LIBRARY ORD ERABLES [place], [place] documented in this encounter Visit Diagnoses Diagnosis Screening Screening for unspecified condition documented in this encounter Care Teams Mri Manager Relationship Specialty Start Date End Date Lucy Brock APRN PCP - General 04/22/10 05/19/18 documented as of this encounter
--- OUTSIDE RECORDS SUMMARY | 2024-01-21 14:41 | XMS_ITS | Encounter Summary ---
Author Organization [facility] Address [address] [place] [address] Care Team Providers Care Kaiawhina Kura Kaupapa Maori Name Role Phone Lucy Brock NP Primary Care Provider Encounter Details Date Type Department Care Team (Late st Contact Info) Description 02/15/2017 Results Only [facility] [phone] Catalina Hall APRN [address] [place] [address] Social History Tobacco Use Types Packs/Day Years Used Date Smoking Tobacco: Never Assessed Sex and Gender Information Value Date Recorded Sex Assigned at Not on file Gender Identity Not on file Sexual Orientation Not on file documented as of this encounter Plan of Treatment Not on file documented as of this encounter Procedures Procedure Name Priority Date/Time Associated Diagnosis Comments PAP TEST- RESULT ONLY Routine 02/15/2017 0:00 EDT documented in this encounter Results * PAP TEST- RESULT ONLY (02/15/2017 0:00 EDT) Pathology Report: CYTOPATHOLOGY REPORT Reports generated via electronic interface contain original data; however they are lacking the format of the original report. Caution should be taken when reading/interpret ing unformatted reports. Name: ? YARA ZHENG ? Accession #: ? [id number] ? : ? 1960 (Age: 56) ??F ?Collect Date: ? 02/15/2017 ? Location: ? [facility] ? Receive Date: ? 02/17/2017 ? Provider: CATALINA HALL APRN Copy to: ? Final Report SPECIMEN ADEQUACY ? Satisfactory for Evaluation - transformation zone component present GENERAL CATEGORIZATION ? Epithelial Cell Abnormality INTERPRETATION ? Squamous Cell Abnormality - Atypical squamous cells, undetermined significance (ASC-US). EDUCATIONAL NOTES/RECOMMENDAT IONS ? [facility] recommends following ASCCP's 2012 Updated Consensus Guidelines for the Management of Abnormal Cervical Cancer Screening Tests and Cancer Precursors (JLGTD, 2013; 17(5):S1-S27). ??Consensus guidelines are available online at www.asccp.org. Menstrual/Pregnan cy Status: ??Post Menopausal Hormonal/Contrace ptive status: Yes: Estrace cream Specimen/Source: ??Pap Test, Cervix, ThinPrep Imaging System with manual evaluation Document reviewed and electronically signed by: ? BERNARDO PERDUE MD ? Report ??Date: 02/25/2017 15:37 HPV with Pap Test ? Date Ordered: ? 02/25/2017 ? Status: ?? Signed Out ?Date Complete: ? 02/26/2017 ? By: ??System Interface ? Date Reported: ? 02/26/2017 ? Interpretation RESULT: Negative for HPV. No E6 or E7 mRNA is detected from HPV types 16,18,31,33,35, 39,45,51,52,56,58 ,59,66, and 68 by refinery operator alkylation mediated amplification. Comments Document reviewed and electronically signed by: ? System Interface ? Report date: 02/26/2017 By the signature above, the attending physician certifies that he/she has personally conducted a gross and/or microscopic examination of the described specimens and rendered or confirmed the above diagnosis. End of Report [facility] 02/15/2017 02/17/2017 Catalina Hall APRN PATHOLOGY ORDERABLES Performing Organization Address City/State/[facility] Co de Phone Number [facility] [address] [place] [address] documented in this encounter Visit Diagnoses Not on filedocumented in this encounter Care Teams Kaiawhina Kura [place]up[place] Maori Relationship Specialty Start Date End Date Lucy Brock NP [address] [place] [address] [address] [place] [address] PCP - General 04/05/15 03/21/18 documented as of this encounter
--- OUTSIDE RECORDS SUMMARY | 2024-01-21 14:41 | XMS_ITS | Encounter Summary ---
Author Organization [facility] Address [address] [facility] [place] [address] Care Team Providers Care Traveling Freight Agent Name Role Phone Leland Echavarria OLGA Primary Care Provider Encounter Details Date Type Department Care Team (Late st Contact Info) Description 05/26/2014 Interpretation Only Radiology [address] [facility] [place] [address] Unknown None Social History Tobacco Use Types Packs/Day Years Used Date Smoking Tobacco: Never Assessed Sex and Gender Information Value Date Recorded Sex Assigned at Not on file Gender Identity Not on file Sexual Orientation Not on file documented as of this encounter Plan of Treatment Not on file documented as of this encounter Procedures Procedure Name Priority Date/Time Associated Diagnosis Comments XR NASAL BONES Routine 05/26/2014 7:47 PM EST documented in this encounter Results * XR Nasal Bones (Generic) (05/26/2014 7:47 PM EST) Anatomical Region Laterality Modality Head N/A Radiographic Madhavi ging 05/26/2014 7:47 PM EST Narrative 05/26/2014 7:47 PM EST APD Historical Result Principal Nurseryman Assistant: ??AKYLI ??ROSMERY NASAL BONES - THREE VIEWS: CLINICAL HISTORY: ??Facial injury. ??Nasal surgery 2 years ago. ??Deviated septum. No definite fracture is identified. IMPRESSION: No definite fracture is identified. Kayli Botello MD Andre [id number] ([facility] 05/28/14) CC: Procedure Note Unknown - 11/28/2018 APD Historical Result Principal Nurseryman Assistant: KAYLI BOTELLO NASAL BONES - THREE VIEWS: CLINICAL HISTORY: Facial injury. Nasal surgery 2 years ago. Deviatedseptum. No definite fracture is identified. IMPRESSION: No definite fracture is identified. Kayli Botello MD Andre [phone] ([facility] 05/28/14) CC: Unknown IMG DX ORDERABLES documented in this encounter Visit Diagnoses Not on filedocumented in this encounter Care Teams Traveling Freight Agent Relationship Specialty Start Date End Date Leland Echavarria DNP PCP - General Family Medicine 08/24/18 documented as of this encounter
--- OUTSIDE RECORDS SUMMARY | 2024-01-21 14:41 | XMS_ITS | Encounter Summary ---
Author Organization [facility] Address [address] [place] [address] Care Team Providers Care County Director Welfare Name Role Phone Dharmesh Catalina BROWN Primary Care Provider [phone] Encounter Details Date Type Department Care Team (Latest Contact Info) Description 10/07/2020 Lab Requisition [facility] Pathology & Laboratory Medicine - [facility] [address] [place] [address] Leland Patel, [facility] [address] [place] [id number] Encounter for general adult medical examination without abnormal findings; Encounter for screening for malignant neoplasm of cervix; Encounter for screening for human papillomavirus (HPV) Social History Tobacco Use Types Packs/Day Years [...] Name Priority Date/Time Associated Diagnosis Comments PAP TEST Today 10/04/2020 13:20 EDT Encounter for general adult medical examination without abnormal findings Encounter for screening for malignant neoplasm of cervix Encounter for screening for human papillomavirus (HPV) HPV DNA DETECTION WITH GENOTYPING, PCR Today 10/04/2020 13:20 EDT Encounter for general adult medical examination without abnormal findings Encounter for screening for malignant neoplasm of cervix Encounter for screening for human papillomavirus (HPV) documented in this encounter Results * HUMAN PAPILLOMAVIRUS (HPV) DETECTION-HIGH RISK TYPES (10/04/2020 13:20 EDT) HPV other High Risk types, PCR Negative Negative 10/11/2020 15:27 EDT [facility] Comment:No E6 or E7 mRNA is detected from HPV types 16,18,31,33,35,39,45,51,52,56,58,59,66, and 68 by core composer feeder mediated amplification. Papanicolaou smear specimen (specimen) CERVIX UTERI STRUCTURE / Unknown 10/04/2020 13:20 EDT 10/10/2020 13:04 EDT Leland Echavarria [facility] MICROBIOLOGY - [place]ERAL ORDERABLES [facility] [address] [place] [address] * PAP TEST (10/04/2020 13:20 EDT) Specimens A. Cervix and/or Endocervix , ThinPrep Imaging System with Manual Evaluation 10/11/2020 15:27 T [facility] Specimen Adequacy Satisfactory for Evaluation - transformation zone component present 10/11/2020 15:27 [facility] General Categorization Negative for intraepithelial lesion or malignancy 10/11/2020 15:27 [facility] Attestation . 10/11/2020 15:27 [facility] at 1527 Clinical History See below 10/12/19 21 15:27 T [facility] HPV The result for the Human Papillomavirus (HPV) Detection-High Risk Types is Negative. No E6 or E7 mRNA is detected from HPV types 16,18,31,33,35,39 ,45,51,52,56,58,5 9,66, and 68 by core composer feeder mediated amplification.Jeanette ting was performed on specimen [id number] and was resulted on 10/11/2020 1524 EDT by FRANK, LAB INSTRUMENT RESULTS IN 10/11/2020 15:27 EDT [facility] Performing Lab [facility] 10/11/2020 15:27 EDT [facility] Scanned Images 10/11/2020 15:27 EDT [facility] Papanicolaou smear specimen (specimen) CERVIX UTERI STRUCTURE / Unknown 10/04/2020 13:20 EDT 10/07/2020 15:56 EDT Leland Echavarria DNP PATHOLOGY ORDERAB LES [facility] [address] [place] [address] documented in this encounter Visit Diagnoses Diagnosis Encounter for general adult medical examination without abnormal findings Unspecified general medical examination Encounter for screening for malignant neoplasm of cervix Screening for malignant neoplasm of the cervix Encounter for screening for human papillomavirus (HPV) Special screening examination for human papillomavirus (HPV) documented in this encounter Care Teams County Director Welfare Relationship Specialty Start Date End Date Catalina Barroso APRN [address] [place] [address] PCP - General 03/22/18 documented as of this encounter
--- OUTSIDE RECORDS SUMMARY | 2024-01-21 14:41 | XMS_ITS | Encounter Summary ---
Author Organization [facility] Address [facility] [address] Care Team Providers Care Detective Chief Name Role Phone Catalina Barroso APRN Primary Care Provider [phone] Reason for Visit * Reason Comments Advice Only Encounter Details Date Type Department Care Team (Late st Contact Info) Description 06/07/2018 1:00 PM EST Office Visit Dermatology at [address] [address] Howard Hammer MD [facility] DR [address] [place] [address] Isael Eddy RN Encounter for cosmetic procedure Social History Tobacco Use Types Packs/Day Years Used Date Smoking Tobacco: Never Smokeless Tobacco: Never Sex and Gender Information Value Date Recorded Sex Assigned at Not on file Gender Identity Not on file Sexual Orientation Not on file documented as of this encounter Progress Notes * Howard Hammer MD - 06/07/2018 1:00 PM EST DERMATOLOGY AIR QUALITY MANAGER NOTE Date of service: 06/07/2018 Yara Lawton : 1960 SUPERVISED BY: Renata Hammer MD Chief Complaint Patient presents with ??? Advice Only ROS General: feeling well Skin: denies other skin complaints Breast feeding: no Trying to get : no HPI Yara Lawton is a 57 y.o. year old female . Here today for: Skin care and peel f/u Exam: Patient tolerating skin care regimen well. Patient notices improvement with dry skin around her nose and mouth. Patient experiences a lot of redness and peeling with the mandelic acid peel, but felt it helped her skin. A/P: # Chemoprevention/correction: Emphasized value of retinoid based skin care system to amplify and maintain benefits of any anti aging plan/procedures. -retinoid: will add at next visit -ZO skincare regimen: regimen or products: Exfoliating Cleanser, Mosotho, Complexion Renewal Pads reviewed by:ALYSHA date: 06/07/2018 -instructions in AVS dated 06/07/2018 -discussed importance of meticulous sun protection -Patient will schedule for a later visit due to time contraints -gave patient a little container sample of restoracalm # Chemical Peels for acne, dry skin located on face - Appropriate peels for this patient include: Vi peel, MA Peel, amador acid peel - Number of treatments recommeded: 3-4 - Special considerations for this pt: none - Area of main concern: face - heard quoted: $150-250 - See peel log for treatment dates and details -Additional notes: -only briefly discussed peels, will discuss more in depth at later visit. CHEMICAL PEEL TREATMENT LOG Date: 06/07/2018 Peel: mandelic acid peel Area: full face Number of units: 1 vial Application Time: 10 minutes Paid: $150 Tx By:ALYSHA Notes: Patient charged today: no charge FOLLOW UP WHEN: 3 months FOR WHAT: Chemical Peel, Mandelic Acid LENGTH OF VISIT: 30 min NUMBING?: no PICTURESNEEDED? yes COST: no charge NOTES: Isael Eddy Perinatal Breastfeeding Assistant documented in this encounter Plan of Treatment Not on file documented as of this encounter Visit Diagnoses Diagnosis Encounter for cosmetic procedure documented in this encounter Care Teams Detective Chief Relationship Specialty Start Date End Date Catalina Barroso APRN PCP - General Family Medicine 05/20/18 08/23/18 documented as of this encounter
--- OUTSIDE RECORDS SUMMARY | 2024-01-21 14:41 | XMS_ITS | Encounter Summary ---
Author Organization [facility] Address [address] [place] [address] Care Team Providers Care Floors Buffer Name Role Phone Unavailable Primary Care Provider Unavailabl e Encounter Details Date Type Department Care Team (Late st Contact Info) Description 07/07/2004 Results Only [facility] - [facility] conversion [address] [place] [address] Daniel Brock, BLADIMIR [address] [place] [address] Social History Tobacco Use Types [...] Priority Date/Time Associated Diagnosis Comments CYTOPATHOLOGY Routine 07/07/2004 0:00 EST documented in this encounter Results * CYTOPATHOLOGY (07/07/2004 0:00 EST) Pathology Report: CYTOPATHOLOGY REPORT Reports generated via electronic interface contain original data; however they are lacking the format of the original report. Caution should be taken when reading/interpreti ng unformatted reports. Name: ? YARA ZHENG ? Accession #: ? [id number] : ? 1960 (Age: 44) ??F ?Collect Date: ? 07/07/2004 Location: ? [facility] ? Receive Date: ? 07/09/2004 Provider: ?DANIEL BROCK LEAD PRESSMAN [employer] Copy to: ? Specimen/Source: ?ThinPrep Pap Test, Cervix/Endocervix Last Menstrual Period: ? 07/01/04 Other: ? HPVA - HPV testing requested if ASC-US on the current ThinPrep Pap test. ? SPECIMEN ADEQUACY ? Satisfactory for Evaluation - transformation zone component present GENERAL CATEGORIZATION ? Negative for Intraepithelial Lesion or Malignancy ? Document reviewed and electronically signed by: ? MAYA Cardenas(ASCP) ? Report Date: ??07/14/2004 12:40 End of Report [facility] 07/07/2004 07/09/2004 Daniel Brock LEAD PRESSMAN [employer] PATHOLOGY ORDERABLES [facility] [address] [place] [address] documented in this encounter Visit Diagnoses Not on filedocumented in this encounter
--- OUTSIDE RECORDS SUMMARY | 2024-01-21 14:41 | XMS_ITS | Encounter Summary ---
Author Organization [facility] [place] [address] Care Team Providers Care Music Librarian Name Role Phone DhrameshCatalina Charly BROWN Primary Care Provider Encounter Details Date Type Department Care Team (Late st Contact Info) Description 06/26/2018 8:20 AM EST Ancillary Procedure [place] [address] Carlin Lo MD [facility] [place] [address] Social History Tobacco Use Types Packs/Day Years [...] FILM LIBRARY STORAGE ONLY DX CHEST Routine 06/26/2018 8:14 AM EST documented in this encounter Results * Film Library- Storage Only DX Chest (06/26/2018 8:14 AM EST) Narrative RAD - 06/26/2018 8:14 AM EST This exam is for storage only and is auto-finalizing. Carlin oL MD IMG FILM LIBRARY ORD ERABLES [place], [place] documented in this encounter Visit Diagnoses Not on filedocumented in this encounter Care Teams Music Librarian Relationship Specialty Start Date End Date Catalina Barroso APRN PCP - General Family Medicine 05/20/18 08/23/18 documented as of this encounter
--- OUTSIDE RECORDS SUMMARY | 2024-01-21 14:41 | XMS_ITS | Encounter Summary ---
Author [place] [address] Care Team Providers Care Fugitive Investigator Name Role Phone Unavailable Primary Care Provider Unavailabl e Encounter Details Date Type Department Care Team (Late st Contact Info) Description 08/15/2009 - 08/15/2009 11:59 PM EDT Hospital Encounter [place] [address] [address] Edward Peterson Screening Discharge Disposition: Home Social History Tobacco [...] Comments FILM LIBRARY STORAGE ONLY MAMMO Routine 08/15/2009 12:00 AM EDT Screening documented in this encounter Results * Film Library- Storage only Mammo (08/15/2009 12:00 AM EDT) Narrative [facility] - 10/08/2015 12:28 AM EDT This exam is for storage only and is auto-finalizing. Dr Leon [facility] FILM LIBRARY ORD ERABLES [place], [place] documented in this encounter Visit Diagnoses Diagnosis Screening Screening for unspecified condition documented in this encounter
--- OUTSIDE RECORDS SUMMARY | 2024-01-21 14:41 | XMS_ITS | Encounter Summary ---
Author Organization [facility] Address [address] [place] [address] Care Team Providers Care Sexual Assault Counselor Name Role Phone Unavailable Primary Care Provider Unavailabl e Encounter Details Date Type Department Care Team (Late st Contact Info) Description 11/29/2006 Results Only [facility] - Maple conversion [address] [place] [address] Daniel Brock, BLADIMIR [address] [place] [address] Social History Tobacco Use Types [...] Priority Date/Time Associated Diagnosis Comments CYTOPATHOLOGY Routine 11/29/2006 0:00 EDT documented in this encounter Results * CYTOPATHOLOGY (11/29/2006 0:00 EDT) Pathology Report: CYTOPATHOLOGY REPORT Reports generated via electronic interface contain original data; however they are lacking the format of the original report. Caution should be taken when reading/interpreti ng unformatted reports. Name: ? YARA ZHENG ? Accession #: ? [id number] : ? 1960 (Age: 46) ??F ?Collect Date: ? 11/29/2006 Location: ? [facility] ? Receive Date: ? 12/02/2006 Provider: ?DANIEL BROCK DRESS CAP MAKER Copy to: ? Specimen/Source: ?ThinPrep Pap Test, Cervix/Endocervix, processed on VideoStep ThinPrep Imaging System, with manual evaluation Last Menstrual Period: ? 11/07/06 Other: ? HPVA - HPV testing requested if ASC-US on the current ThinPrep Pap test. ? SPECIMEN ADEQUACY ? Satisfactory for Evaluation - transformation zone component present GENERAL CATEGORIZATION ? Negative for Intraepithelial Lesion or Malignancy ? Document reviewed and electronically signed by: ? MAYA Hager(ASCP) ? Report Date: ??12/08/2006 15:36 End of Report [facility] 11/29/2006 12/02/2006 Daniel Brock NP PATHOLOGY ORDERABLES Performing Organization Address City/State/[facility] Co de Phone Number [facility] [address] [place] [address] documented in this encounter Visit Diagnoses Not on filedocumented in this encounter
--- OUTSIDE RECORDS SUMMARY | 2024-01-21 14:41 | XMS_ITS | Referral Summary ---
Author Organization [facility] Address [address] [place] [address] Care Team Providers Care Special Machine Operator Name Role Phone BarrosoCatalina STEPHANIE Primary Care Provider [phone] Social History Tobacco Use Types Packs/Day Years Used Date Smoking Tobacco: Never Assessed Interpersonal Safety Answer Date Record ed Physically Hurt Never 12/31/2019 Verbally Threaten Not on file 12/31/2019 Sex and Gender Information Value Date Recorded Sex Assigned at Not on file Gender Identity Not on file Sexual Orientation Not on file Plan of Treatment Not on file Care Teams Special Machine Operator Relationship Specialty Start Date End Date Catalina Barroso APRN [address] [place], [place] [id number] PCP - General 03/22/18
--- OUTSIDE RECORDS SUMMARY | 2024-01-21 14:41 | XMS_ITS | Encounter Summary ---
Author Organization [facility] [place] [address] Care Team Providers Care Game Room Attendant Name Role Phone Catalina Barroso APRN Primary Care Provider Encounter Details Date Type Department Care Team (Late st Contact Info) Description 06/26/2018 External Results [place] [address] Social History Tobacco Use Types Packs/Day Years Used Date Smoking Tobacco: Never Smokeless Tobacco: Never Sex and Gender Information Value Date Recorded Sex Assigned at Not on file Gender Identity Not on file Sexual Orientation Not on file documented as of this encounter Plan of Treatment Not on file documented as of this encounter Procedures Procedure Name Priority Date/Time Associated Diagnosis Comments ECG SCAN Routine 06/26/2018 documented in this encounter Results * Scan Doc: ECG (06/26/2018) Historical Provider MD MUNOZ MGR SCAN EX T ORDR/RSLT documented in this encounter Visit Diagnoses Not on filedocumented in this encounter Care Teams Game Room Attendant Relationship Specialty Start Date End Date Catailna Barroso APRN PCP - General Family Medicine 05/20/18 08/23/18 documented as of this encounter
--- OUTSIDE RECORDS SUMMARY | 2024-01-21 14:41 | XMS_ITS | Encounter Summary ---
Author Organization [facility] Address [address] [place] [address] Care Team Providers Care Assigner Name Role Phone Unavailable Primary Care Provider Unavailabl e Encounter Details Date Type Department Care Team (Late st Contact Info) Description 01/03/2008 Before PRISM Converted Visit (Maple) [facility] - Maple conversion [address] [place] [address] Daniel Hernandez, BLADIMIR [address] [place] [address] Social History Tobacco Use Types [...] Priority Date/Time Associated Diagnosis Comments CYTOPATHOLOGY Routine 01/03/2008 0:00 EDT documented in this encounter Results * CYTOPATHOLOGY (01/03/2008 0:00 EDT) Pathology Report: CYTOPATHOLOGY REPORT ? Reports generated via electronic interface contain original data; ? however they are lacking the format of the original report. ? Caution should be taken when reading/interpreti ng unformatted reports. ? Name: ? YARA ZHENG ? Accession #: ? [id number] ? : ? 1960 (Age: 47) ??F ?Collect Date: ? 01/03/2008 ? Location: ? [facility] ? Receive Date: ? 01/03/2008 ? Provider: ?DANIEL HERNANDEZ NP ? Copy to: ? Specimen/Source: ?ThinPrep Pap Test, Cervix/Endocervix, processed on Cytyc ThinPrep Imaging System, with manual evaluation ? Last Menstrual Period: ? 07/08/08 ? Other: ? HPVA - HPV testing requested if ASC-US on the current ThinPrep Pap test. ? SPECIMEN ADEQUACY ? Satisfactory for Evaluation ? - transformation zone component present ? GENERAL CATEGORIZATION ? Negative for Intraepithelial Lesion or Malignancy ? Document reviewed and electronically signed by: ? Marie Landryg, CT(ASCP) ? Report Date: ??01/05/2008 12:34 ? End of Report ? [facility] 01/03/2008 01/03/2008 Daniel Hernandez NP PATHOLOGY ORDERABLES [facility] [address] [place] [address] documented in this encounter Visit Diagnoses Not on filedocumented in this encounter
--- OUTSIDE RECORDS SUMMARY | 2024-01-21 14:41 | XMS_ITS | Encounter Summary ---
Author Organization [facility] Address [address] [place] [address] Care Team Providers Care Cardiothoracic Anesthesia Technician Name Role Phone Unavailable Primary Care Provider Unavailabl e Encounter Details Date Type Department Care Team (Late st Contact Info) Description 09/29/2011 Results Only [facility] Laboratory Services - [facility] [address] [place], [place] [phone] Daniel Hernandez, BLADIMIR [address] [place] [address] Social History Tobacco Use Types [...] Diagnosis Comments PAP TEST- RESULT ONLY Routine 09/29/2011 0:00 EDT documented in this encounter Results * PAP TEST- RESULT ONLY (09/29/2011 0:00 EDT) Pathology Report: CYTOPATHOLOGY REPORT Reports generated via electronic interface contain original data; however they are lacking the format of the original report. Caution should be taken when reading/interpreti ng unformatted reports. Name: ? YARA ZHENG ? Accession #: ? [id number] ? : ? 1960 (Age: 51) ??F ?Collect Date: ? 09/29/2011 ? Location: ? [facility] ? Receive Date: ? 09/30/2011 ? Provider: DANIEL HERNANDEZ MASTER BARBER Copy to: ? Final Report SPECIMEN ADEQUACY ? Satisfactory for Evaluation - transformation zone component present GENERAL CATEGORIZATION ? Negative for Intraepithelial Lesion or Malignancy INTERPRETATION ? Reactive cellular changes associated with inflammation present (includes repair). Last Menstural Period: >1 year Menstural/Pregnanc y Status: ??Post Menopausal Specimen/Source: ??Pap Test, Cervix/Endocervix, ThinPrep Imaging System with manual evaluation Document reviewed and electronically signed by: ? BERNARDO PERDUE MD ? Report ??Date: 10/05/2011 13:14 HPV with Pap Test ? Date Ordered: ? 10/05/2011 ? Status: ?? Signed Out ?Date Complete: ? 10/07/2011 ? By: ??System Interface ? Date Reported: ? 10/07/2011 ? Interpretation RESULT: Negative for HPV. No E6 or E7 mRNA is detected from HPV types 16,18,31,33,35, 39,45,51,52,56,58, 59,66, and 68 by hyperbaric technologist mediated amplification. Comments Document reviewed and electronically signed by: ? System Interface ? Report date: 10/07/2011 By the signature above, the attending physician certifies that he/she has personally conducted a gross and/or microscopic examination of the described specimens and rendered or confirmed the above diagnosis. End of Report [facility] 09/29/2011 09/30/2011 Daniel Hernandez MASTER BARBER PATHOLOGY ORDERABLES Performing Organization Address City/State/[facility] Co de Phone Number [facility] [address] [place] [address] documented in this encounter Visit Diagnoses Not on filedocumented in this encounter
--- OUTSIDE RECORDS SUMMARY | 2024-01-21 14:41 | XMS_ITS | Encounter Summary ---
Author Organization [facility] Address [address] [place] [address] Care Team Providers Care Help Desk Operator Name Role Phone Catalina Barroso FRONT END DRIVER Primary Care Provider [phone] Encounter Details Date Type Department Care Team (Late st Contact Info) Description 10/05/2020 Lab Requisition [facility] Pathology & Laboratory Medicine - [facility] [address] [place] [address] Leland Patel, [facility] [address] [place] [id number] Disorder of the skin and subcutaneous tissue, unspecified Social History Tobacco Use Types Packs/Day Years [...] Priority Date/Time Associated Diagnosis Comments SURGICAL PATHOLOGY Today 10/04/2020 13 :35 EDT Disorder of the skin and subcutaneous tissue, unspecified documented in this encounter Results * SURGICAL PATHOLOGY (10/04/2020 13:35 EDT) Final Diagnosis A. SKIN OF BACK, MEDIAL, SHAVE BIOPSY: - Seborrheic keratosis, inflamed. 10/08/2020 9:57 EDT [facility] Attestation By the signature below, the attending physician certifies that they have 1) personally conducted a gross and/or microscopic examination of the described specimen(s), and/or personally interpreted the results of laboratory testing of the described specimen(s), and 2) personally rendered or confirmed the above diagnosis. 10/08/2020 9:57 EDT [facility] at 0957 Clinical History Skin lesion; clinical diagnosis code: L98.9 10/08/2020 9:57 EDT [facility] Gross Description A. Received in formalin labelled with proper patient identification (initials B, D) and medial back is a rubbery dusky anton nodular skin lesion, 0.6 x 0.5 x 0.3 cm. The surface of the lesion shows a verrucous pattern. The margin is inked. Bisected and entirely submitted in A1. KORI MOE(ASCP) 10/07/2020 10:03 10/08/2020 9:57 EDT [facility] Performing Lab [facility] 10/08/2020 9:57 EDT [facility] Scanned Images 10/08/2020 9:57 T [facility] Tissue TISSUE SPECIMEN FROM SKIN / Unknown 10/04/2020 13:35 EDT 10/05/2020 10:05 EDT Leland Echavarria DNP PATHOLOGY ORDERAB LES Performing Organization Address City/State/[facility] Co de Phone Number [facility] [address] [place] [address] documented in this encounter Visit Diagnoses Diagnosis Disorder of the skin and subcutaneous tissue, unspecified documented in this encounter Care Teams Help Desk Operator Relationship Specialty Start Date End Date Catalina Barroso APRN [address] [place] [address] PCP - General 03/22/18 documented as of this encounter
--- OUTSIDE RECORDS SUMMARY | 2024-01-21 14:41 | XMS_ITS | Encounter Summary ---
Author Organization [facility] [place] [address] Care Team Providers Care Diesel Engine Assembler Name Role Phone DharmeshCatalina Charly BROWN Primary Care Provider Encounter Details Date Type Department Care Team (Late st Contact Info) Description 06/26/2018 8:15 AM EST Ancillary Procedure [place] [address] Carlin Lo MD [facility] [place] [address] Social History Tobacco Use Types Packs/Day Years [...] FILM LIBRARY STORAGE ONLY CT CHEST Routine 06/26/2018 8:13 AM EST documented in this encounter Results * Film Library- Storage Only CT Chest (06/26/2018 8:13 AM EST) Narrative [facility] - 06/26/2018 8:13 AM EST This exam is for storage only and is auto-finalizing. Carlin Lo MD IMG FILM LIBRARY ORD ERABLES [facility] [place], [place] documented in this encounter Visit Diagnoses Not on filedocumented in this encounter Care Teams Diesel Engine Assembler Relationship Specialty Start Date End Date Catalina Barroso APRN PCP - General Family Medicine 05/20/18 08/23/18 documented as of this encounter
--- OUTSIDE RECORDS SUMMARY | 2024-01-21 14:41 | XMS_ITS | Encounter Summary ---
Author Organization [facility] Address [address] [place] [address] Care Team Providers Care Netezza Developer Name Role Phone Unavailable Primary Care Provider Unavailabl e Encounter Details Date Type Department Care Team (Late st Contact Info) Description 08/18/2010 Results Only [facility] Laboratory Services - [facility] [place] [address] [place], [place] [phone] Lucy Brock, BLADIMIR [address] [place] [address] Social History Tobacco Use Types [...] Priority Date/Time Associated Diagnosis Comments CYTOPATHOLOGY Routine 08/18/2010 0:00 EDT documented in this encounter Results * CYTOPATHOLOGY (08/18/2010 0:00 EDT) Pathology Report: CYTOPATHOLOGY REPORT ? Reports generated via electronic interface contain original data; ? however they are lacking the format of the original report. ? Caution should be taken when reading/interpreti ng unformatted reports. ? Name: ? YARA ZHENG ? Accession #: ? [id number] ? : ? 1960 (Age: 50) ??F ?Collect Date: ? 08/18/2010 ? Location: ? [facility] ? Receive Date: ? 08/19/2010 ? Provider: SANCHEZ DAVID COMMERCIAL MANAGEMENT ACCOUNTANT ? Copy to: ? Final Report ? SPECIMEN ADEQUACY ? Satisfactory for Evaluation ? - transformation zone component present ? GENERAL CATEGORIZATION ? Negative for Intraepithelial Lesion or Malignancy ? INTERPRETATION ? Reactive cellular changes associated with inflammation present (includes ?? repair). ? Menstural/Pregnanc y Status: ??Post Menopausal: o x 6 MONTHS ? Specimen/Source: ??Pap Test, Cervix/Endocervix, ThinPrep Imaging System with ? manual evaluation ? Document reviewed and electronically signed by: ? C JOHNSON MD ? Report ??Date: 08/24/2010 09:44 ? HPV with Pap Test ? Date Ordered: ? 08/22/2010 ? Status: ?? Signed Out ?Date Complete: ? 08/27/2010 ? By: ??System Interface ? Date Reported: ? 08/27/2010 ? Interpretation ? RESULT: Negative for HPV types 16, 18, 31, 33, 35, 39, 45, 51, 52, ? 56, 58, 59, and 68. ? Comments ? Document reviewed and electronically signed by: ? System Interface ? Report date: 08/27/2010 ? By the signature above, the attending physician certifies that he/she has ? personally conducted a gross and/or microscopic examination of the described ? specimens and rendered or confirmed the above diagnosis. ? End of Report ? [facility] 08/18/2010 08/19/2010 Lucy Brock NP PATHOLOGY ORDERABLES [facility] [address] [place] [address] documented in this encounter Visit Diagnoses Not on filedocumented in this encounter
--- OUTSIDE RECORDS SUMMARY | 2024-01-21 14:41 | XMS_ITS | Encounter Summary ---
Author Organization [facility] Address [facility] [place] [address] Care Team Providers Care Triple Drum Operator Name Role Phone Dharmesh Catalina Parks APRN Primary Care Provider [phone] Reason for Visit * Reason Comments Procedure Encounter Details Date Type Department Care Team (Late st Contact Info) Description 05/20/2018 3:00 PM EST Office Visit Dermatology at [facility] [address] [place] [address] Howard Hammer MD [facility] [address] [place] [address] Isael Eddy RN Encounter for cosmetic procedure Social History Tobacco Use Types Packs/Day Years Used Date Smoking Tobacco: Never Smokeless Tobacco: Never Sex and Gender Information Value Date Recorded Sex Assigned at Not on file Gender Identity Not on file Sexual Orientation Not on file documented as of this encounter Patient Instructions * Patient Instructions* Isael Eddy - 05/20/2018 3:00 PM EST YOUR SKIN CARE INSTRUCTIONS FACE AND NECK Overview: This cleansing routine can dramatically reduce breakouts and improve your overall skin health. It???s an important first step. Anyone prone to acne breakouts needs to have a system that eliminates skin oils (contrary to misinformation you may have received about skin oil improving your skin and aging.) An additional benefit of this system is its ability to ???Get Skin Ready?? (GSR) forother helpful ingredients that can be used. Once you tolerate your GSR system, you may benefit froma more comprehensive system that incorporates active ingredients like Vitamin C and retinol. Until then, apply lightweight sunscreens (daily) and moisturizers only as needed. Notify Dr. Herrera if you experience excessive irritation and need solutions. AM 1. Exfoliating Cleanser: Wash face with lukewarm water. 2. Exfoliating Cymro: Apply to moistened face, massage for 60 seconds and rinse. Start 1-2 times per week and increase to 5-7 days per week. Stinging is normal. See information below. 3. Complexion Renewal Pads: Pat face dry with towel then apply Pad. Use 1 pad to wipe face and neck. You can put that same pad back in the container and use the other side at night time. Stinging is normal. 4. Daily sunblock: we can make suggestions but use what you have for now. PM 1. Exfoliating Cleanser 2. Complexion Renewal Pads 3. Your usual night time product *I plan to add a nighttime retinol and gradually increase its strength. OK to use a lightweight moisturizer if you feel you absolutely need it here. General Precautions *Stop the following products 5 days before any skin procedure (waxing, laser, chemical peel or facials): Dual Action Scrub Oil control Pads Sun Precautions *All of the products listed above as having potential to increase your skin sensitivity will also increase your risk of sunburn and possibly make you susceptible to discoloration if you use them without also taking sun precautions. Your regimen should include a sunscreen. Ideally, one with zinc and titanium as main ingredients. You should also seek shade when possible. Sun exposure interferes with every healthy skin goal. Do not stop your regimen in the summertime. Your skin is healthier on this program. Just be sure not to get unprotected and/or heavy sun exposure. Avoid any direct sunlight on your face (protected or not) whenever you are experiencing redness, peeling or sensitivity as youadjust to your skin care regimen Products that Require Extra Information Complexion Renewal Pads: Designed as a toner for Oily or Combination Skin. Meant to be used twice a day. Help control oil and breakouts as well as improve texture and pores. Contain mandelic acid is great for Rosacea prone skin as well as acneic or just oily skin. The pads may feels harsh at first but your skin will adjustand become stronger with sustained use. Exfoliating Cymro: Benefits: 1) Increases circulation and skin turnover 2) Enhances penetration of other products you use 3) Helps to remove , dry skin generated from the use of a retinoid (when you start your retinoid you???ll likely experience this.) The general instructions are to apply it to a moistened face. When you really need to remove skin, and/or as you get used to this product, you may want to try using it with a less moistened-almost dry face. That heightens the microdermabrasion effect. Safe to go near the eyes (to the ???bony rim?? ). CHEMICAL PEEL GENERAL INFORMATION A chemical peel [...] peel. ?? Stop all abrasive scrubs (Exfoliating Cymro, Vitascrub or other) 5 days before your [...] using 1 tspn of white household vinegar (Brightstorm cider vinegar works too) per cup of water. [...] after your procedure please call our clinic: [phone] If you have an emergency after hours please call Dr. Herrera's cell: [phone] documented in this encounter Progress Notes * Howard Hammer MD - 05/20/2018 3:00 PM EST DERMATOLOGY COLLEGE OR UNIVERSITY REGISTRAR NOTE Date of service:05/20/2018 Yara Lawton : 1960 SUPERVISED BY: Renata Hammer MD Chief Complaint Patient presents with ??? Advice Only ROS General: feeling well Skin: denies other skin complaints Breast feeding: no Trying to get : no HPI Yara Lawton is a 57 y.o. year old female . Here today for: Chemical peel and skin care Exam: Patient with adult acne and dry skin. Patient uses dove on skin. Would like to establish skin care regimen. A/P: # Chemical Peels for acne, dry skin [...] discuss more in depth at later visit. # Chemoprevention/correction: Emphasized value of retinoid based skin care system to amplify and maintain benefits of any anti aging plan/procedures. -retinoid: will add at next visit -ZO skincare regimen: regimen or products: Exfoliating Cleanser, Cymro, Complexion Renewal Pads reviewed by:ALYSHA date: 05/20/2018 -instructions in AVS dated 05/20/2018 -discussed importance of meticulous sun protection -Patient will schedule for a later visit due to time contraints -gave patient a little container sample of restoracalm CHEMICAL PEEL TREATMENT LOG Date: 05/20/2018 Peel: mandelic acid peel Area: full face Number of units: 1 vial Application Time: 10 minutes Paid: $150 Tx By:ALYSHA Notes: Patient charged today: $150 FOLLOW UP WHEN: 2 - 6 weeks FOR WHAT: skin care and chemical peel f/u LENGTH OF VISIT: 30 min NUMBING?: no PICTURES NEEDED? yes COST: no charge NOTES: Isael Eddy Melter Assistant documented in this encounter Plan of Treatment Not on file documented as of this encounter Visit Diagnoses Diagnosis Encounter for cosmetic procedure documented in this encounter Care Teams Triple Drum Operator Relationship Specialty Start Date End Date Catalina Barroso APRN PCP - General Family Medicine 05/20/18 08/23/18 documented as of this encounter
--- OUTSIDE RECORDS SUMMARY | 2024-01-21 14:41 | XMS_ITS | Encounter Summary ---
Author Organization [facility] Address One [facility] [place]ina [place] [address] Care Team Providers Care Rod Puller And Coiler Name Role Phone Leland Echavarria DNP Primary Care Provider Encounter Details Date Type Department Care Team (Late st Contact Info) Description 06/06/2014 Abstract Danielle Stevenson Conversion Results [address] [place] [address] Ap[facility] Conversion, Flowsheet Provider, Social History Tobacco Use Types Packs/Day Years Used Date Smoking Tobacco: Never Assessed Sex and Gender Information Value Date Recorded Sex Assigned at Not on file Gender Identity Not on file Sexual Orientation Not on file documented as of this encounter Last Filed Vital Signs Vital Sign Reading Time Taken Comments Blood Pressure 128/70 06/06/2014 1:20 PM EST Sourced from [facility] Conversion Pulse - - Temperature - - Respiratory Rate - - Oxygen Saturation - - Inhaled Oxygen Concentration - - Weight 69 kg (152 lb 1.9 oz) 06/06/2014 1:20 PM EST Sourced from [facility] Conversion Height 170 cm (5' 6.93) 06/06/2014 1:2 0 PM EST Sourced from [facility] Conversion Body Mass Index 23.88 06/06/2014 1:20 PM EST documented in this encounter Plan of Treatment Not on file documented as of this encounter Visit Diagnoses Not on filedocumented in this encounter Care Teams Rod Puller And Coiler Relationship Specialty Start Date End Date Leland Echavarria DNP PCP - General Family Medicine 08/24/18 documented as of this encounter
--- OUTSIDE RECORDS SUMMARY | 2024-01-21 14:41 | XMS_ITS | Encounter Summary ---
Author Organization [facility] Address [address] [place] [address] Care Team Providers Care Machine Stone Polisher Apprentice Name Role Phone Lucy Brock NP Primary Care Provider Encounter Details Date Type Department Care Team (Latest Contact Info) Description 03/14/2018 14:01 EDT - 03/14/2018 23:[address] [facility] - [address] [address] Unknown, Provider, Discharge Disposition: Home or Self Care Social History Tobacco Use Types Packs/Day Years Used Date Smoking Tobacco: Never Assessed Sex and Gender Information Value Date Recorded Sex Assigned at Not on file Gender Identity Not on file Sexual Orientation Not on file documented as of this encounter Discharge Disposition Disposition Code Departure Means Destination Home or Self Snf documented in this encounter Plan of Treatment Not on file documented as of this encounter Visit Diagnoses Not on filedocumented in this encounter Care Teams Machine Stone Polisher Apprentice Relationship Specialty Start Date End Date Lucy Brock NP [address] [place] [address] [address] [place] [id number] PCP - General 04/05/15 03/21/18 documented as of this encounter
--- OUTSIDE RECORDS SUMMARY | 2024-01-21 14:41 | XMS_ITS | Encounter Summary ---
Author Organization [facility] Address [address] [place] [address] Care Team Providers Care Mold Carrier Name Role Phone Lucy Brock NP Primary Care Provider [phone] Encounter Details Date Type Department Care Team (Late st Contact Info) Description 10/03/2015 Results Only [facility] [phone] Catalina Hall APRN [address] [place] [address] Social History Tobacco Use Types Packs/Day Years [...] Diagnosis Comments PAP TEST- RESULT ONLY Routine 10/03/2015 0:00 EDT documented in this encounter Results * PAP TEST- RESULT ONLY (10/03/2015 0:00 EDT) Pathology Report: CYTOPATHOLOGY REPORT Reports generated via electronic interface contain original data; however they are lacking the format of the original report. Caution should be taken when reading/interpreti ng unformatted reports. Name: ? YARA ZHENG ? Accession #: ? [id number] ? : ? 1960 (Age: 55) ??F ?Collect Date: ? 10/03/2015 ? Location: ? [facility] ? Receive Date: ? 10/04/2015 ? Provider: CATALINA HALL APRN Copy to: ? Final Report SPECIMEN ADEQUACY ? Satisfactory for Evaluation - transformation zone component present GENERAL CATEGORIZATION ? Negative for Intraepithelial Lesion or Malignancy INTERPRETATION ? Reactive cellular changes associated with inflammation present (includes repair). Specimen/Source: ??Pap Test, Cervix/Endocervix, ThinPrep Imaging System with manual evaluation Document reviewed and electronically signed by: ? MATTHEW MADSEN MD ? Report ??Date: 10/17/2015 08:29 HPV with Pap Test ? Date Ordered: ? 10/16/2015 ? Status: ?? Signed Out ?Date Complete: ? 10/21/2015 ? By: ??System Interface ? Date Reported: ? 10/21/2015 ? Interpretation RESULT: Positive for high or intermediate risk HPV. E6 OR E7 mRNA from one or more types of HPV types 16,18,31, 33,35,39,45,51,52, 56,58,59,66, and 68 is detected by explosive operator grenade mediated amplification. High and intermediate risk HPV types are associated with most squamous intraepithelial lesions and cervical cancers. Comments Document reviewed and electronically signed by: ? System Interface ? Report date: 10/21/2015 By the signature above, the attending physician certifies that he/she has personally conducted a gross and/or microscopic examination of the described specimens and rendered or confirmed the above diagnosis. End of Report [facility] 10/03/2015 10/04/2015 Catalina Hall APRN PATHOLOGY ORDERABLES [facility] [address] [place] [address] documented in this encounter Visit Diagnoses Not on filedocumented in this encounter Care Teams Mold Carrier Relationship Specialty Start Date End Date Lucy Brock NP [address] [place] [address] [address] [place] [address] PCP - General 04/05/15 03/21/18 documented as of this encounter
--- OUTSIDE RECORDS SUMMARY | 2024-01-21 14:41 | XMS_ITS | Encounter Summary ---
Author Organization [facility] Address One [facility] [place] [address] Care Team Providers Care Nurse Unit Manager Name Role Phone Catalina Barroso APRN Primary Care Provider [phone] Encounter Details Date Type Department Care Team (Late st Contact Info) Description 06/24/2018 Telephone [facility] [address] [place] [phone] [facility] Isael Langley, RN Social History Tobacco Use Types Packs/Day Years Used Date Smoking Tobacco: Never Smokeless Tobacco: Never Sex and Gender Information Value Date Recorded Sex Assigned at Not on file Gender Identity Not on file Sexual Orientation Not on file documented as of this encounter Miscellaneous Notes * Telephone Encounter - Shena Arevalo - 06/24/2018 10:30 AM EST Called Yara Lawton to schedule an system follow up around 09/05/18. Left voicemail for patientto call back. documented in this encounter Plan of Treatment Not on file documented as of this encounter Visit Diagnoses Not on filedocumented in this encounter Care Teams Nurse Unit Manager Relationship Specialty Start Date End Date Catalina Barroso APRN PCP - General Family Medicine 05/20/18 08/23/18 documented as of this encounter
--- OUTSIDE RECORDS SUMMARY | 2024-01-21 14:41 | XMS_ITS | Encounter Summary ---
[place] [address] Care Team Providers Care Hot Sealing Machine Operator Name Role Phone Unavailable Primary Care Provider Unavailabl e Encounter Details Date Type Department Care Team (Late st Contact Info) Description 01/03/2007 - 01/03/2007 11:59 PM EDT Hospital Encounter [place] [address] [address] Edward Peterson Screening Discharge Disposition: Home [...] Comments FILM LIBRARY STORAGE ONLY MAMMO Routine 01/03/2007 12:00 AM EDT Screening documented in this encounter Results * Film Library- Storage only Mammo (01/03/2007 12:00 AM EDT) Narrative [facility] - 10/08/2015 12:29 AM EDT This exam is for storage only and is auto-finalizing. Dr Leon [facility] FILM LIBRARY ORD ERABLES [place], [place] documented in this encounter Visit Diagnoses Diagnosis Screening Screening for unspecified condition documented in this encounter
--- OUTSIDE RECORDS SUMMARY | 2024-01-21 14:41 | XMS_ITS | Encounter Summary ---
Author Organization [facility] [place] [address] Care Team Providers Care Key Bed Installer Name Role Phone Catalina Barroso APRN Primary Care Provider [phone] Reason for Referral * Physical Therapy (Routine) - Closed Specialty Diagnoses / Procedures Referred By Contmarla t Referred To Contact Physical Therapy Diagnoses Physical deconditioning Acute respiratory distress syndrome (ARDS) Acute respiratory failure with [place] [address] Jael Espana, PT [address] [place] [address] Referral ID Status Reason Start Date Expiration Date V isits Requested Visits Authorized [id number] Closed Evaluate and Treat 07/14/2018 01/10/2019 10 10 Reason for Visit * Auth/Cert Specialty Diagnoses / Procedures Referred By Contac t Referred To Contact Diagnoses Respiratory failure with hypoxia PERICARDIAL EFFUSION Procedures EMERGENCY IPI Referral ID Status Reason Start Date Expiration Date Visits Re quested Visits Authorized [id number] 1 1 Encounter Details Date Type Department Care Team (Latest Contact Info) Description 06/26/2018 10:22 AM EST - 07/14/2018 2:00 PM EST Hospital Encounter Neuro Critical Care Unit - [address] [place] [phone] [place] [address] [place] [address] [place] [address] [place] [address] [place] [address] [place] [address] Acute on chronic respiratory failure with hypoxia; LBBB (left bundle branch block); Physical deconditioning; Acute respiratory distress syndrome (ARDS); Acute respiratory failure with hypoxia Discharge Disposition: Home Social History Tobacco Use [...] Sign Reading Time Taken Comments Blood Pressure 117/69 07/14/2018 8:24 AM EST Pulse 109 07/14/2018 8:24 AM EST Temperature 36.9 ??C (98.4 ??F) 07/14/2018 8:24 AM ES T Respiratory Rate 18 07/14/2018 8:24 AM EST Oxygen Saturation 95% 07/14/2018 8:24 AM EST Inhaled Oxygen Concentration - - Weight 72.1 kg (158 lb 15.2 oz) 07/07/2018 6:00 AM EST Height 167.6 cm (5' 6) 06/26/2018 10:3 3 AM EST Body Mass Index 25.66 06/26/2018 10:33 AM EST documented in this encounter Discharge Summaries * Korey Hernandez MD - 07/14/2018 12:02 PM EST Images from the original note were not included. Discharge Summary Patient Name: Yara Lawton Patient Age: 58 y.o. Language: Angolan Race: White Ethnicity: Not nor Admit date: 06/26/2018 Discharge date and time: July 14, 2018 12:02 PM Attending Physician: Korey Hernandez MD Discharge Physician: Korey Hernandez MD Follow-up Recommendations for Providers: 1. Follow respiratory status in the setting of admission for ARDS from Influenza A. She has improved and is no longer requiring oxygen. She completed a 5 day course of Tamiflu. 2. PT recommended outpatient PT. Placed referral for one option in [facility]. Please follow-up at her PCP appointment to ensure she is set up with outpatient PT. She is deconditioned from her hospitalization. Inpatient Provider Contact Information: For questions regarding this document or issues relating to this hospitalization on the Medical Service, please contact your inpatient physician through the [facility] . Issues afterhours and on weekends will be handled by the Hospitalist staff on-call. Discharge Diagnoses (Hospital Problems) and Secondary Diagnoses (Chronic Problems): Active Hospital Problems Diagnosis ??? Influenza A (H1N1) ??? Acute respiratory distress syndrome (ARDS) ??? Respiratory failure with hypoxia ??? Hyponatremia Resolved Hospital Problems No resolved problems to display. There are no active non-hospital problems to display for this patient. Operations/Major Procedures: Operations: Other Major Procedures: Central Line placement 06/30 Arterial line placement 06/28 Intubation 06/28 History of Presentation: Yara Lawton is a 58 y.o. female with a PMH significant for Anxiety Disorder, Former Smoker, Depression, LBBB, and Migraines, who presents in transfer from [facility] with acute hypoxic respiratory failure secondary to influenza A. ?? HPI: (per admitting MD) ?? Ms. Lawton reports that she began feeling unwell on Wednesday of this past week, she developed a productive cough and was experiencing chills and rigors. She then developed progressive shortness of breath, which is what caused her to seek medical evaluation at [facility] this morning. ?? On arrival there she was noted to have a room air saturation in the 70s, was tachycardic and febrile [38.4C]. She was placed on 100% FiO2 via NRBM with improvement in her saturations to the mid-90s. A Chest XR and CT Chest both revealed bilateral multifocal pneumonia and her Flu swab was positive for Influenza A. Her initial ABG on the NRBM was: 7.52/33/74 on 100%. ?? Pertinent Laboratory Data: -Flu A positive -WBC: 10.5 -Creatinine: 1.05 -Sodium: 126 -AST/ALT: 38/18 -Troponin I: <0.02 [ULN 0.06] -Lactate: 1.7 -ProBNP: 710 -ABG at 0700: 7.52/33/74/27 on 100% NRBM ?? Care at [facility]: -Vancomycin 1.5gms IV at 0730 -LR 1L IV -Azithromycin 500mg IV at 0730 -Ceftriaxone 2gms IV at 0730 -Tamiflu 75mg PO at 0800 ?? Pertinent Imaging: -CT Chest without contrast: bilateral multifocal patchy infiltrates suggestive of multifocal pneumonia. -Chest XR: bilateral patchy infiltrates. ?? She arrived to [facility] in no acute respiratory distress, but saturating in the low 90s on 100% FiO2 via HFNC. She was placed on BiPAP with immediate improvement in her SpO2 and her O2 was weaned from 100%-->70%-->55% within an hour. Hospital Course: # Hypoxic Respiratory Failure due to ARDS from Influenza A: Se was initially treated with BiPap butgiven progressive hypoxia requiring intubation requiring paralyzing and prone position. She was treated with tamiflu for 5 days. Legionella antibody positive at [facility] however legionella urinary antigen and legionella respiratory culture negative at [facility] and so azithromycin was stopped (treated from 06/30-07/02). She was extubated 07/06 to [place]. She improved and was able to wean to RA. She did not requireoxygen on discharge. She was deconditioned but her functional status improved and PT recommended outpatient PT at discharge. ?? # Dysphagia: Developed in setting of intubation. She was on dysphagia soft diet initially and discharged on a regular diet per speech therapy recommendations ?? # Urinary Retention after gonzalez removal: She requiring straight cath on day gonzalez was removed but is since voiding spontaneously without urinary retention. ?? # Anxiety # Depression She is continued on her home sertraline 100 mg PO daily #Moderate malnutrition - resolved: During her time in the ICU during her tube feed intake over 7 days, she met 42% of her goal and lost 2.7 kg of body weight consistent with moderate malnutrition. Asshe improved clinically her oral intake improved and she was eating full meals prior to discharge. Vital Signs at Discharge: BP: 117/69, Heart Rate: (!) 109, Temp: 36.9 ??C (98.4 ??F), Resp: 18, BMI (Calculated): 27.82 Height: 167.6 cm (5' 6) (06/26/18 1033) Weight: 72.1 kg (158 lb 15.2 oz) (07/07/18 0600) Functional and Cognitive Status: Clear mentation, ambulating without oxygen Important Studies and Lab Data: Labs: Last 3 wbc, hgb, hct plt Recent Labs 07/08/18 0807/07/18 0137 07/06/18 0255 WBC 8.6 13.6* 11.4* HGB 9.8* 9.0* 8.4* HCT 30.6* 28.4* 26.6* PLATELET 376* 410* 296 Last 3 Lytes Recent Labs 07/10/18 0222 07/08/18 0819 07/07/18 0137 NA 138 144 142 K 3.7 3.7 3.6 CL 102 103 100 CO2 26 28 30 BUN 18 21* 19* CREATININE 0.54* 0.51* 0.47* Last 3 LFTs Recent Labs 06/26/18 1105 AST 34* ALT 13 ALKPHOS 74 BILITOT 0.4 BILIDIR 0.1 Last Ca, Mg, Phos Recent Labs 07/10/18 0222 CALCIUM 8.6 Last 3 Coags No results for input(s): PT, INR, PTT in the last 168 hours. Last 3 ProBNP, Trop, CK No results for input(s): CK, TROPONINT, PROBNP in the last 168 hours. Final result Specimen: ??Nasopharyngeal Swab Updated: ??06/26/18 1314 ? Resp Panel Source [facility] Swab ? Resp Panel PCR Positive ? Comment: Respiratory Panels are performed on the [employer], using multiplexed PCR nucleic acid detection. ??Negative results do not preclude respiratory infection and should not be used as the sole basis for diagnosis, treatment or other management decisions. ? Adenovirus Not Detected ? Coronavirus HKU1 Not Detected ? Coronavirus NL63 Not Detected ? Coronavirus 229E Not Detected ? Coronavirus OC43 Not Detected ? Human Metapneumovirus Not Detected ? Human Rhino/Enterovirus Not Detected ? Influenza A Detected ? Influenza A H1 Not Detected ? Influenza A H1-2009 Detected ? Influenza A H3 Not Detected ? Influenza B Not Detected ? Parainfluenza 1 Not Detected ? Parainfluenza 2 Not Detected ? Parainfluenza 3 Not Detected ? Parainfluenza 4 Not Detected ? Respiratory Syncytial Virus Not Detected ? Chlamydophila pneumoniae Not Detected ? Mycoplasma pneumoniae Not Detected Studies: 2/3 CXR: No interval change in position of endotracheal tube, enteric feeding tube, and right-sided central venous catheter. Increased prominence of patchy consolidative opacification of both lungs with relative sparing of the apices. Pending Studies and Lab Data: None Discharge Conditions/Prognosis: Improving, remains somewhat deconditioned from baseline Discharge to: Home Updated Allergies/ADRs: Allergies Allergen Reactions ??? Citalopram Hydrobromide ??? Paroxetine Hcl Immunizations Given this Hospitalization: There is no immunization history on file for this patient. Discharge Medications: Your Medications Continued medications, unchanged Dose Details acyclovir 400 mg Tab Commonly known as: ZOVIRAX Take 400 mg by mouth as needed. 400 mg Refills: 0 sertraline 100 mg Tab Commonly known as: ZOLOFT Take 100 mg by mouth daily. 100 mg Refills: 0 STOPPED Medications clonazePAM 0.25 mg Tbdl Commonly known as: KlonoPIN ketoconazole 2 % Crea Commonly known as: NIZORAL LORazepam 0.5 mg Tab Commonly known as: ATIVAN Smoking Status at Discharge: Social History Tobacco Use Smoking Status Current Some Day Smoker Smokeless Tobacco Never Used Instructions Given to Patient at Discharge: Patient Instructions Instruction after leaving the hospital Why you were hospitalized: You were admitted with shortness of breath and low oxygen from Influenza. You had lung inflammation from influenza (ARDS or acute respiratory distress syndrome) that required a breathing tube. You were treated with Tamiflu for your influenza. You have improved and are no longer requiring oxygen. You worked with the physical therapists and have improved to be able to return home with outpatient physical therapy. Call your doctor or seek medical attention if you develop the following: Fevers or chills, increased cough, shortness of breath, lightheadedness, dizziness, heart racing, chest pain, or any concerns Activity level: As you tolerate. Pace yourself and rest if you feel fatigued or short of breath Diet: No restrictions, regular diet Driving: Caution until you are feeling better - caution if you are feeling short of breath or dizzy Shower/Bath: No restrictions Specific instructions related to your condition: 1. You completed your Tamiflu (medicine for influenza) in the hospital 2. Continue your medications otherwise without changes Follow-Up Appointments Date and Time Provider and Specialty Location Jul 20 1:45pm Leland Echavarria (new [facility] in clinic) [facility] Your Inpatient Doctor(s) at [facility]: Dr. Hernandez - [facility] Medicine General Instructions None Future Appointments and Orders Future Orders Complete By Expires Referral to Physical Therapy [REF87 Custom] As directed Process Instructions: Note: Please indicate in the comments any additional Instructions, Precautions or Contra-indications. Scheduling Instructions: Questions: Reason for PT: Recent admission for influenza with prolonged hospitalization - remains fatigued above baseline but making progress. Inpatient PT recommending outpatient PT in [facility] Specialty Program Eval: Other (see comments) Comment - Endurance and balance Modalities could include: Treatment Focus: Discharge References/Attachments None documented in this encounter Discharge Instructions * Patient Instructions* Korey Hernandez MD - 07/14/2018 10:51 AM EST Instruction after leaving the hospital Why you were hospitalized: You were admitted with shortness of breath and low oxygen from Influenza. You had lung inflammation from influenza (ARDS or acute respiratory distress syndrome) that required a breathing tube. You were treated with Tamiflu for your influenza. You have improved and are no longer requiring oxygen. You worked with the physical therapists and have improved to be able to return home with outpatient physical therapy. Call your doctor or seek medical attention if you develop the following: Fevers or chills, increased cough, shortness of breath, lightheadedness, dizziness, heart racing, chest pain, or any concerns Activity level: As you tolerate. Pace yourself and rest if you feel fatigued or short of breath Diet: No restrictions, regular diet Driving: Caution until you are feeling better - caution if you are feeling short of breath or dizzy Shower/Bath: No restrictions Specific instructions related to your condition: 1. You completed your Tamiflu (medicine for influenza) in the hospital 2. Continue your medications otherwise without changes 3. You were referred to an outpatient physical therapy in [facility]. You can also discuss referral at your appointment on July 20 if you would prefer a different outpatient clinic. Follow-Up Appointments Date and Time Provider and Specialty Location Wednesday, Jul 20 1:45pm Leland Echavarria - (new [facility] in clinic) [facility] Your Inpatient Doctor(s) at [facility]: Dr. Hernandez - [facility] Medicine documented in this encounter Medications at Time of Discharge Medication Sig Dispensed Refills Start Date End Date sertraline (ZOLOFT) 100 mg Tablet Take 100 mg by mouth daily. acyclovir (ZOVIRAX) 400 mg Tablet Take 400 mg by mouth as needed. documented as of this encounter Progress Notes * Jocelyn Laurent RN - 07/14/2018 12:22 PM EST Pt was given DC instructions, she verbalized her understanding. IV removed. She has no further questions. She is changing and will be leaving with her brother when he arrives. Will continue to monitor until departure. * Korey Hernandez MD - 07/14/2018 12:02 PM EST Hospital Medicine - Attending Day of Discharge Documentation Discharge diagnosis Active Hospital Problems Diagnosis ??? Influenza A (H1N1) ??? Acute respiratory distress syndrome (ARDS) ??? Respiratory failure with hypoxia ??? Hyponatremia Resolved Hospital Problems No resolved problems to display. Secondary Issues There are no active non-hospital problems to display for this patient. I have personally seen and examined the patient and they are ready for discharge. I spent >30 minutes (Day of Discharge Code 83267) involved in the final examination of the patient, discussion of the hospital stay, instructions for continuing care to all relevant caregivers, and preparation of discharge records, prescriptions and referral forms. Plans ? Discharge to home ? Follow-up scheduled with PCP ? Please see the Discharge Summary for complete details of any medication changes and additional plans. * Echo Mcmillan PTA - 07/14/2018 9:55 AM EST Physical Therapy Treatment Treatment Number PT: 6 Pertinent History of Current Problem: Pt is a 58 yo female with a h/o depression, anxiety, former smoker, Migraines and a LBBB who was transferred from an OSH, 06/26/18, 2/2 Bilateral PNA and influenza A. She developed respiratory failure with hypoxia and required intubation. Pt was in ICU for a period of time issues with ARDS, dysphagia, and weakness. Extubated on 07/06/18; transferred from the ICU to [address] [place] [address] on 07/07/18 Precautions/Restrictions: fall Assessment: Pt seen for functional mobility, strength, and pt education. Pt performed 30 second sitto stand and TUG tests, scoring within normal ranges for age group. Ambulate to stairs steadily, using cane as needed. performed stairs without AD safely using R sided rail. Performed bed mobility and transfers independently. Pt is safe to return home and would benefit from outpatient rehabilitation services. Please see the flow sheet below for patient details and mobility. Pt would benefit from ongoing physical therapy interventions. Staff Mobility Recommendations: Supervision with ambulation. Anticipated Discharge Disposition: home with outpatient services VAN Nickerson Pt seen and note written in conjunction w/ ECHO MCMILLAN PTA Pager: [phone] Inpatient Physical Therapy Timed Up & Go (TUG) Average of two trials (seconds): 8.31 seconds Assistive device used: No Comments: Steady & balanced. Normal test = < 10 seconds > 13.5 seconds = fall risk Luiza Wilks Isaacs B. Balance in Elderly Patients:THe Get-up and Go Test. Arch Phys MedRehabil 1986; 67:387-389. 30 Second Chair Stand Test Score: 12 Comments: Stable with sit to stands, no AD. Normal Values: As specified below. Scores less than 8 (unassisted) stands are associated with lowerlevels of functional ability Range of scores between the 25% and 75% percentiles Age Number of stands - Women Number of stands - Men 60 - 64 - 17 - 19 65 - 69 - 16 12 - 18 Patrick RE, Elvis CJ (1999). Functional fitness normative scores for community residing older adults ages 60-94. Journal of Aging and Physical Activity, 7, 160-179. 07/14/18 0955 Rehab Evaluation Document Type therapy note (daily note) Total Evaluation Minutes, Physical Therapy 30 (TE-F x 2) Patient Effort good Symptoms Noted During/After Treatment none General Information Patient/Family/Caregiver Comments/Observations I would like to go home today. Pertinent History of Current Problem Pt is a 58 yo female with a h/o depression, anxiety, former smoker, Migraines and a LBBB who was transferred from an OSH, 06/26/18, 2/2 Bilateral PNA and influenzaA. She developed respiratory failure with hypoxia and required intubation. Pt was in ICU for a period of time issues with ARDS, dysphagia, and weakness. Extubated on 07/06/18; transferred from the ICU to [address] [place] [address] on 07/07/18 Precautions/Restrictions fall Treatment Number PT 6 Living Environment Patient population Adult Living Environment Living Environment Comment Lives alone in a one level home, 3 stairs with a rail to enter. Reports family lives 4 miles away and will check in. 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 She walked without a device, was driving, and enjoys walking and gardening. Bed Mobility Assessment/Treatment Gqlnqm-bv-Sor Wetzel (Bed Mobility) independent Wkd-kz-Rvtjsr Wetzel (Bed Mobility) independent Impairments (Bed Mobility) strength decreased Comment (Bed Mobility) Able to perform with no AD, flat bed.. Transfer Assessment/Treatment Bed-Chair Wetzel (Transfers) independent Chair-Bed Wetzel (Transfers) independent Wetzel (Sit-Stand Transfers) independent Wetzel (Stand-Sit Transfers) independent Comment (Transfers) Able to transfer from chair to bed and back, no AD, safely & steadily. Gait Assessment/Treatment Wetzel (Gait) conditional independence Assistive Device (Gait) straight cane Distance in Feet (Gait) 75ft x 2 Gait Pattern Analysis swing-through gait Deviations (Gait) donald decreased;step length decreased Safety Issues (Gait) step length decreased;balance decreased during turns Impairments (Gait) balance impaired;strength decreased Comment (Gait) Ambulated to stair way and back, steady & safe. With straight cane to be safe. Stairs Assessment/Treatment Number of Stairs (Stairs) 4 Handrail Location (Stairs) right side (ascending) Wetzel (Stairs) supervision required Technique (Stairs) [id number]-[id number]-vcjy (ascending);rsgh-pqgf-huds (descending) Comment (Stairs) Able to perform stairs safely. Special Tests Timed Up and Go Score 8.31 Plan of Care Review Plan Of Care Reviewed With patient Bed Mobility Goal Bed Mobility Goal, Date Established 07/05/18 Bed Mobility Goal, Activity Type supine to sit/sit to supine Bed Mobility Goal, Wetzel Level supervision required;conditional independence Bed Mobility Goal, Date Goal Reviewed 07/10/18 Bed Mobility Goal, Outcome Achieved goal met Gait Training Goal Gait Training Goal, Date Established 07/05/18 Gait Training Goal, Time to Achieve 30 days Gait Training Goal, Wetzel Level minimum assist (75% patient effort) Gait Training Goal, Assist Device (Likely walker or LRAD) Gait Training Goal, Distance to Achieve 100' with VSS Gait Training Goal, Additional Goal Up and down 3 stairs with a railing and cga, VSS Gait Training Goal, Date Goal Reviewed 07/10/18 Gait Training Goal, Outcome goal met Transfer Training Goal Transfer Training Goal, Date Established 07/05/18 Transfer Training Goal, Time to Achieve 30 days Transfer Training Goal, Activity Type mhn-jr-zxbkt/ttoez-vz-fxq Transfer Train Goal, Wetzel Level conditional independence Transfer Training Goal, Assist Device (TBD) Transfer Train Goal, Date Goal Reviewed 07/10/18 Transfer Training Goal, Outcome goal met Physical Therapy Goal PT Goal, Date Established 07/05/18 PT Goal, Time to Achieve 30 days PT Goal, Activity Type Pt able to sit EOB without support for light functional activity. PT Goal, Additional Goal Pt able to clear own airways effectively and using IS >1000 ml PT Goal, Outcome goal ongoing Clinical Impression Therapy Frequency 2-4 times/wk Anticipated Discharge Disposition home with outpatient services * Korey Hernandez MD - 07/13/2018 3:30 PM EST Images from the original note were not included. Inpatient Medicine Progress Note Hospital Day 17 days Active Hospital Problems Diagnosis ??? Influenza A (H1N1) ??? Acute respiratory distress syndrome (ARDS) ??? Respiratory failure with hypoxia ??? Hyponatremia Resolved Hospital Problems No resolved problems to display. Patient ID: Yara Lawton is a 58 y.o. female 24 Hour Events: Weaned to RA this am Subjective/ROS: Breathing overall has improved. Still feeling more winded than baseline moving. No fevers or chills. No abdominal pain, nausea, tolerating po. No chest pain. Vitals: Last value Range last 24 hrs Temperature Temp: 36.9 ??C (98.5 ??F) Temp: [36.6 ??C (97.9 ??F)-37.2 ??C (99 ??F)] Heart Rate Heart Rate: 70 Heart Rate: [70-99] Blood Pressure BP: 115/71 BP: (101-120)/(51-77) Respiratory Rate Resp: 20 Resp: [16-20] SpO2 SpO2: 95 % SpO2: [87 %-98 %] Ins/Outs: Intake/Output Summary (Last 24 hours) at 07/13/2018 1758 Last data filed at 07/13/2018 0830 Gross per 24 hour Intake 660 ml Output -- Net 660 ml Patient Vitals for the past 168 hrs: Weight 07/07/18 0600 72.1 kg (158 lb 15.2 oz) Physical Exam: General - Brushing teeth on my visit, pleasant, NAD HEENT: Anicteric sclera, EOMI CV: RRR, no m/r/g Lungs: Largely CTA bilaterally without wheezing or rhonchi Abd: Soft, ND, +BS, non-tender to deep palpation Ext: no edema Neuro: Oriented and appropriate, no focal deficits Labs: Recent Labs 07/08/1881807/07/18136 WBC 8.6 13.6* HGB 9.8* 9.0* PLATELET 376* 410* Recent Labs 07/10/1822107/08/1881807/07/18136 NA 138 144 142 K 3.7 3.7 3.6 CL 102 103 100 CO2 26 28 30 BUN 18 21* 19* CREATININE 0.54* 0.51* 0.47* Recent Labs 07/10/1822107/08/1881807/07/18136 CALCIUM 8.6 8.8 8.6 MAGNESIUM -- -- 0.93 PHOS -- -- 3.8 No results for input(s): AST, ALT, ALKPHOS, BILITOT, BILIDIR in the last 168 hours. No results for input(s): TROPONINT, CK in the last 168 hours. No results for input(s): PHART, JAQ6OJX, PO2ART, QOL7JIE in the last 168 hours. Microbiology: Microbiology Results (Last 30 days) ?? Procedure Component Value Units Date/Time ?? Lower Respiratory Culture Sputum Expectorated [[id number]] (Abnormal) Collected: 07/01/18340 ?? Lab Status: Final result Specimen: Sputum Expectorated Updated: 07/03/18 075 ? Lower Respiratory Culture -- ? [place] albicans Rare mixed bacterial morphotypes suggestive of normal upper respiratory germaine ? Gram Stain -- ? Few Neutrophils seen Few squamous epithelial cells seen Few Yeast seen Rare mixed bacterial morphotypes suggestive of normal upper respiratory germaine ?? Legionella culture Sputum Expectorated [[id number]] Collected: 07/01/18340 ?? Lab Status: Preliminary result Specimen: Sputum Expectorated Updated: 07/02/18841 ? Legionella Culture No Legionella isolated to date ?? Blood culture [[id number]] Collected: 06/30/18 1300 ?? Lab Status: Final result Specimen: Blood from Wrist, Right Updated: 07/05/18 1501 ? Blood Culture No growth at 5 days. ?? Blood culture [[id number]] Collected: 06/30/18 1300 ?? Lab Status: Final result Specimen: Blood from Wrist, Left Updated: 07/05/18 1501 ? Blood Culture No growth at 5 days. ?? Urine culture Indwelling Catheter Urine [[id number]] Collected: 06/26/18 1226 ?? Lab Status: Final result Specimen: Urine Updated: 06/27/18 0751 ? Urine Culture No growth (Less than 1,000 cfu/ml). ?? Legionella Urinary Antigen [[id number]] Collected: 06/26/18 1225 ?? Lab Status: Final result Specimen: Urine Updated: 06/26/18 1459 ? Legionella Urinary Antigen Negative ? Comment: A negative Legionella Urinary Antigen by EIA suggests no recent or current infection with L. pneumophila Serogroup 1. Antigen may not be present in urine in early infection, and the level of antigen present in the urine may be below the detection limit of the test. Sensitivity: 95% Specificity 95%. ? Respiratory Panel PCR [[id number]] (Abnormal) Collected: 06/26/18 1140 ?? Lab Status: Final result Specimen: Nasopharyngeal Swab Updated: 06/26/18 1314 ? Resp Panel Source PAPER BUNDLER Swab ? Resp Panel PCR Positive ? Comment: Respiratory Panels are performed on the [employer], using multiplexed PCR nucleic acid detection. Negative results do not preclude respiratory infection and should not be used as the sole basis for diagnosis, treatment or other management decisions. ? Adenovirus Not Detected ? Coronavirus HKU1 Not Detected ? Coronavirus NL63 Not Detected ? Coronavirus 229E Not Detected ? Coronavirus OC43 Not Detected ? Human Metapneumovirus Not Detected ? Human Rhino/Enterovirus Not Detected ? Influenza A Detected ? Influenza A H1 Not Detected ? Influenza A H1-2009 Detected ? Influenza A H3 Not Detected ? Influenza B Not Detected ? Parainfluenza 1 Not Detected ? Parainfluenza 2 Not Detected ? Parainfluenza 3 Not Detected ? Parainfluenza 4 Not Detected ? Respiratory Syncytial Virus Not Detected ? Chlamydophila pneumoniae Not Detected ? Mycoplasma pneumoniae Not Detected ?? Blood culture [[id number]] Collected: 06/26/18 1105 ?? Lab Status: Final result Specimen: Blood from Forearm, Right Updated: 07/01/18 1501 ? Blood Culture No growth at 5 days. ?? Imaging: NONE NEW Inpatient Medications: Scheduled Meds: ??? enoxaparin 40 mg Subcutaneous Nightly ??? miconazole Topical (Top) BID ??? magnesium oxide 400 mg Oral BID ??? white petrolatum-mineral oil Both Eyes BID ??? sodium chloride 0.9 % 5 mL Intravenous Q12H ??? sertraline 100 mg Oral Nightly Continuous Infusions: PRN Meds:.senna-docusate, ipratropium-albuterol, acetaminophen, sodium chloride 0.9 %, lidocaine Assessment: Ms. Lawton is a 58 y/o prior tobacco, depression, anxiety admitted to ICU with acute hypoxic respiratory failure with ARDS from influenza A pneumonia now with improved hypoxia on [place]. Course also complicated by weakness and dysphagia from ICU course which continues to improve. Oxygenation has improved and to RA but remains fatigued from baseline. Spoke with PT who feels that with improvement could be ready for home at end of week. Does not have 24/7 support but brothers nearby. HR to 130 with ambulating today and brief desat after ambulating. # Hypoxic Respiratory Failure 2/2 ARDS # ARDS 2/2 Influenza A # Influenza A - S/p 5 days tamiflu (end date 07/02) for influenza A - Legionella antibody positive at [facility] however legionella urinary antigen and legionella respiratory [place] [facility] so azith[place] was stopped (treated from 06/30-07/02) - Continue PRN duo-nebs - Off O2 this am ?? # Dysphagia/Hoarseness improved: - Hoarseness improving. Likely d/t ETT - Tolerating regular diet ?? # Urinary Retention resolved - S/p gonzalez catheter removal, irequired SC on 2/7 - Renal function stable - Improved ?? # Anxiety # Depression - Continue sertraline 100 mg PO daily # Other - DVT ppx: SC lovenox - Diet/Fluids: Regular - Access: PIV - Code Status: FULL - Dispo: Possible home later in week as overall improving but still with tachycardia moving around with PT Korey Hernandez MD [address] [place] [address] 07/13/2018 * Mabel Joseph, RD - 07/12/2018 1:36 PM EST Nutrition Progress Note Yara Lawton is a 58 y.o. female Reason for intervention: Follow up Nutrition Recommendations: Enc good p.o. Intake Will note food prefs in diet office Patient Active Problem List Diagnosis Code ??? Respiratory failure with hypoxia J96.91 ??? Influenza A (H1N1) J10.1 ??? Hyponatremia E87.1 ??? Acute respiratory distress syndrome (ARDS) J80 No past medical history on file. Active Orders Diet Regular diet Frequency: Effective Now Number of Occurrences: Until Specified Admit Weight: 78.2 kg Estimated body mass index is 25.66 kg/m?? as calculated from the following: Height as of this encounter: 167.6 cm (5' 6). Weight as of this encounter: 72.1 kg (158 lb 15.2 oz). Yeso Body Weight (IBW): Yeso body weight: 59.3 kg (130 lb 11.7 oz) Adjusted ideal body weight: 64.4 kg (142 lb 0.3 oz) UBW:~ 74 kg Estimated needs: Calories:1600 Protein: 75 grams Today's medications: noted Lab Results Component Value Date NA 138 07/10/2018 K 3.7 07/10/2018 CL 102 07/10/2018 CO2 26 07/10/2018 BUN 18 07/10/2018 CREATININE 0.54 (L) 07/10/2018 GLUCOSE 89 07/10/2018 MAGNESIUM 0.93 07/07/2018 CALCIUM 8.6 07/10/2018 PHOS 3.8 07/07/2018 AST 34 (H) 06/26/2018 ALT 13 06/26/2018 ALKPHOS 74 06/26/2018 BILITOT 0.4 06/26/2018 BILIDIR 0.1 06/26/2018 TRIG 430 07/03/2018 Last Bowel Movement: 07/08/18 Assessment: Follow up w/ pt off TFs and out of the ICU on a regular diet. Pt feels appetite is muchimproved and she is making good menu selections. She denies need for snacks/supplements. Suggest continue regular diet. Nutrition Services to follow weekly through stay [facility] SANTANA Beeper #: [phone] * Korey Hernandez MD - 07/12/2018 1:15 PM EST Images from the original note were not included. Inpatient Medicine Progress Note Hospital Day 16 days Active Hospital Problems Diagnosis ??? Influenza A (H1N1) ??? Acute respiratory distress syndrome (ARDS) ??? Respiratory failure with hypoxia ??? Hyponatremia Resolved Hospital Problems No resolved problems to display. Patient ID: Yara Lawton is a 58 y.o. female 24 Hour Events: 1.5-3L O2 Subjective/ROS: Breathing overall has improved. Took shower but was surprised at her fatigue. No fevers or chills. No abdominal pain, nausea, vomiting Vitals: Last value Range last 24 hrs Temperature Temp: 36.8 ??C (98.2 ??F) Temp: [36.8 ??C (98.2 ??F)-37 ??C (98.6 ??F)] Heart Rate Heart Rate: 93 Heart Rate: [84-97] Blood Pressure BP: 121/69 BP: (113-124)/(59-79) Respiratory Rate Resp: 18 Resp: [18-20] SpO2 SpO2: 95 % SpO2: [95 %-99 %] Ins/Outs: Intake/Output Summary (Last 24 hours) at 07/12/2018 1642 Last data filed at 07/12/2018 1300 Gross per 24 hour Intake 790 ml Output 600 ml Net 190 ml Patient Vitals for the past 168 hrs: Weight 07/07/18 0600 72.1 kg (158 lb 15.2 oz) Physical Exam: General - Brushing teeth on my visit, pleasant, NAD HEENT: Anicteric sclera, EOMI CV: RRR, no m/r/g Lungs: Improved crackles, no wheezing, no rhonchi Abd: Soft, ND, +BS, non-tender to deep palpation Ext: no edema Neuro: Oriented and appropriate, no focal deficits Labs: Recent Labs 07/08/1881807/07/1813607/06/18 0255 WBC 8.6 13.6* 11.4* HGB 9.8* 9.0* 8.4* PLATELET 376* 410* 296 Recent Labs 07/10/1822107/08/1881807/07/18 013 NA 138 144 142 K 3.7 3.7 3.6 CL 102 103 100 CO2 26 28 30 BUN 18 21* 19* CREATININE 0.54* 0.51* 0.47* Recent Labs 07/10/1822107/08/1881807/07/1813607/06/18 0255 CALCIUM 8.6 8.8 8.6 8.8 MAGNESIUM -- -- 0.93 0.87 PHOS -- -- 3.8 3.9 No results for input(s): AST, ALT, ALKPHOS, BILITOT, BILIDIR in the last 168 hours. No results for input(s): TROPONINT, CK in the last 168 hours. No results for input(s): PHART, UYI6QSA, PO2ART, AGT7MDU in the last 168 hours. Microbiology: Microbiology Results (Last 30 days) ?? Procedure Component Value Units Date/Time ?? Lower Respiratory Culture Sputum Expectorated [[id number]] (Abnormal) Collected: 07/01/18340 ?? Lab Status: Final result Specimen: Sputum Expectorated Updated: 07/03/18 075 ? Lower Respiratory Culture -- ? [place] albicans Rare mixed bacterial morphotypes suggestive of normal upper respiratory germaine ? Gram Stain -- ? Few Neutrophils seen Few squamous epithelial cells seen Few Yeast seen Rare mixed bacterial morphotypes suggestive of normal upper respiratory germaine ?? Legionella culture Sputum Expectorated [[id number]] Collected: 07/01/18340 ?? Lab Status: Preliminary result Specimen: Sputum Expectorated Updated: 07/02/18841 ? Legionella Culture No Legionella isolated to date ?? Blood culture [[id number]] Collected: 06/30/18 1300 ?? Lab Status: Final result Specimen: Blood from Wrist, Right Updated: 07/05/18 1501 ? Blood Culture No growth at 5 days. ?? Blood culture [[id number]] Collected: 06/30/18 1300 ?? Lab Status: Final result Specimen: Blood from Wrist, Left Updated: 07/05/18 1501 ? Blood Culture No growth at 5 days. ?? Urine culture Indwelling Catheter Urine [[id number]] Collected: 06/26/18 1226 ?? Lab Status: Final result Specimen: Urine Updated: 06/27/18 0751 ? Urine Culture No growth (Less than 1,000 cfu/ml). ?? Legionella Urinary Antigen [[id number]] Collected: 06/26/18 1225 ?? Lab Status: Final result Specimen: Urine Updated: 06/26/18 1459 ? Legionella Urinary Antigen Negative ? Comment: A negative Legionella Urinary Antigen by EIA suggests no recent or current infection with L. pneumophila Serogroup 1. Antigen may not be present in urine in early infection, and the level of antigen present in the urine may be below the detection limit of the test. Sensitivity: 95% Specificity 95%. ? Respiratory Panel PCR [[id number]] (Abnormal) Collected: 06/26/18 1140 ?? Lab Status: Final result Specimen: Nasopharyngeal Swab Updated: 06/26/18 1314 ? Resp Panel Source PAPER BUNDLER Swab ? Resp Panel PCR Positive ? Comment: Respiratory Panels are performed on the [employer], using multiplexed PCR nucleic acid detection. Negative results do not preclude respiratory infection and should not be used as the sole basis for diagnosis, treatment or other management decisions. ? Adenovirus Not Detected ? Coronavirus HKU1 Not Detected ? Coronavirus NL63 Not Detected ? Coronavirus 229E Not Detected ? Coronavirus OC43 Not Detected ? Human Metapneumovirus Not Detected ? Human Rhino/Enterovirus Not Detected ? Influenza A Detected ? Influenza A H1 Not Detected ? Influenza A H1-2009 Detected ? Influenza A H3 Not Detected ? Influenza B Not Detected ? Parainfluenza 1 Not Detected ? Parainfluenza 2 Not Detected ? Parainfluenza 3 Not Detected ? Parainfluenza 4 Not Detected ? Respiratory Syncytial Virus Not Detected ? Chlamydophila pneumoniae Not Detected ? Mycoplasma pneumoniae Not Detected ?? Blood culture [[id number]] Collected: 06/26/18 1105 ?? Lab Status: Final result Specimen: Blood from Forearm, Right Updated: 07/01/18 1501 ? Blood Culture No growth at 5 days. ?? Imaging: NONE NEW Inpatient Medications: Scheduled Meds: ??? enoxaparin 40 mg Subcutaneous Nightly ??? miconazole Topical (Top) BID ??? magnesium oxide 400 mg Oral BID ??? white petrolatum-mineral oil Both Eyes BID ??? sodium chloride 0.9 % 5 mL Intravenous Q12H ??? sertraline 100 mg Oral Nightly Continuous Infusions: PRN Meds:.senna-docusate, ipratropium-albuterol, acetaminophen, sodium chloride 0.9 %, lidocaine Assessment: Ms. Lawton is a 58 y/o prior tobacco, depression, anxiety admitted to ICU with acute hypoxic respiratory failure with ARDS from influenza A pneumonia now with improved hypoxia on [place]. Course also complicated by weakness and dysphagia from ICU course which continues to improve. Medically ready for rehab. # Hypoxic Respiratory Failure 2/2 ARDS # ARDS 2/2 Influenza A # Influenza A - S/p 5 days tamiflu (end date 07/02) for influenza A - Legionella antibody positive at [facility] however legionella urinary antigen and legionella respiratory culture [place] [facility] [place] so azith[place] was stopped (treated from 06/30-07/02) - Continue PRN duo-nebs - Weaning O2 as tolerates, still requiring O2 by [place] (no home O2) ?? # Dysphagia/Hoarseness improved: - Hoarseness improving. Likely d/t ETT - Tolerating regular diet ?? # Urinary Retention resolved - S/p gonzalez catheter removal, irequired SC on 07/07 - Renal function stable - Improved ?? # Anxiety # Depression - Continue sertraline 100 mg PO daily # Other - DVT ppx: SC lovenox - Diet/Fluids: Regular - Access: PIV - Code Status: FULL - Dispo: Medically ready awaiting rehab bed Korey Hernandez MD [address] [place] [address] medicine 07/12/2018 * My Morton RN - 07/12/2018 6:37 AM EST I assumed care from 0300 [id number]. Pt has been sleeping throughout this time. * Dee Dee Segal RN - 07/11/2018 7:10 PM EST Office of Care Management Progress Note Ms. Lawton is progressing with the medical plan of care and Care Team believes that she is medically ready to transition to SNF level of care. Updates provided to facilities ([facility]) and [facility] in [place], [place]. [facility] is patient's first choice but both facilities are in network with her insurance. CM will continue to follow to offer support and assist with care transition. Sadaf Segal RNCM Pager: [phone] * Korey Hernandez MD - 07/11/2018 10:15 AM EST Images from the original note were not included. Inpatient Medicine Progress Note Hospital Day 15 days Active Hospital Problems Diagnosis ??? Influenza A (H1N1) ??? Acute respiratory distress syndrome (ARDS) ??? Respiratory failure with hypoxia ??? Hyponatremia Resolved Hospital Problems No resolved problems to display. Patient ID: Yara Lawton is a 58 y.o. female 24 Hour Events: 2-3L O2 Subjective/ROS: Still feeling weaker than baseline walking. Breathing similar to yesterday. Minimally productive cough - feels she is clearing her phlegm and using suction. No fevers, chills, abdominal pain. Tolerating po. Vitals: Last value Range last 24 hrs Temperature Temp: 36.8 ??C (98.2 ??F) Temp: [36.8 ??C (98.2 ??F)-37 ??C (98.6 ??F)] Heart Rate Heart Rate: 88 Heart Rate: [87-97] Blood Pressure BP: 113/68 BP: (113-134)/(68-81) Respiratory Rate Resp: 20 Resp: [18-20] SpO2 SpO2: 97 % SpO2: [93 %-99 %] Ins/Outs: Intake/Output Summary (Last 24 hours) at 07/11/2018 1535 Last data filed at 07/10/2018 1755 Gross per 24 hour Intake 360 ml Output 200 ml Net 160 ml Patient Vitals for the past 168 hrs: Weight 07/07/18 0600 72.1 kg (158 lb 15.2 oz) 07/05/18 0200 74 kg (163 lb 2.3 oz) Physical Exam: General - Lying in bed, pleasant, NAD HEENT: Anicteric sclera, EOMI CV: RRR, no m/r/g Lungs: Crackles at bases, no wheezing Abd: Soft, ND, +BS, non-tender to deep palpation Ext: no edema Neuro: Oriented and appropriate, no focal deficits Labs: Recent Labs 07/08/1881807/07/18 01307/06/18 0255 WBC 8.6 13.6* 11.4* HGB 9.8* 9.0* 8.4* PLATELET 376* 410* 296 Recent Labs 07/10/18 0222 07/08/18 0807/07/18 0137 NA 138 144 142 K 3.7 3.7 3.6 CL 102 103 100 CO2 26 28 30 BUN 18 21* 19* CREATININE 0.54* 0.51* 0.47* Recent Labs 07/10/18 0222 07/08/18 0807/07/18 0137 07/06/18 0255 07/05/18 0258 CALCIUM 8.6 8.8 8.6 8.8 8.7 MAGNESIUM -- -- 0.93 0.87 0.80 PHOS -- -- 3.8 3.9 3.9 No results for input(s): AST, ALT, ALKPHOS, BILITOT, BILIDIR in the last 168 hours. No results for input(s): TROPONINT, CK in the last 168 hours. No results for input(s): PHART, MZK6UVV, PO2ART, YWU2UIU in the last 168 hours. Microbiology: Microbiology Results (Last 30 days) ?? Procedure Component Value Units Date/Time ?? Lower Respiratory Culture Sputum Expectorated [[id number]] (Abnormal) Collected: 07/01/18 034 ?? Lab Status: Final result Specimen: Sputum Expectorated Updated: 07/03/18 0758 ? Lower Respiratory Culture -- ? [place] albicans Rare mixed bacterial morphotypes suggestive of normal upper respiratory germaine ? Gram Stain -- ? Few Neutrophils seen Few squamous epithelial cells seen Few Yeast seen Rare mixed bacterial morphotypes suggestive of normal upper respiratory germaine ?? Legionella culture Sputum Expectorated [[id number]] Collected: 07/01/18 034 ?? Lab Status: Preliminary result Specimen: Sputum Expectorated Updated: 07/02/18 0842 ? Legionella Culture No Legionella isolated to date ?? Blood culture [[id number]] Collected: 06/30/18 1300 ?? Lab Status: Final result Specimen: Blood from Wrist, Right Updated: 07/05/18 1501 ? Blood Culture No growth at 5 days. ?? Blood culture [[id number]] Collected: 06/30/18 1300 ?? Lab Status: Final result Specimen: Blood from Wrist, Left Updated: 07/05/18 1501 ? Blood Culture No growth at 5 days. ?? Urine culture Indwelling Catheter Urine [[id number]] Collected: 06/26/18 1226 ?? Lab Status: Final result Specimen: Urine Updated: 06/27/18 0751 ? Urine Culture No growth (Less than 1,000 cfu/ml). ?? Legionella Urinary Antigen [[id number]] Collected: 06/26/18 1225 ?? Lab Status: Final result Specimen: Urine Updated: 06/26/18 1459 ? Legionella Urinary Antigen Negative ? Comment: A negative Legionella Urinary Antigen by EIA suggests no recent or current infection with L. pneumophila Serogroup 1. Antigen may not be present in urine in early infection, and the level of antigen present in the urine may be below the detection limit of the test. Sensitivity: 95% Specificity 95%. ? Respiratory Panel PCR [[id number]] (Abnormal) Collected: 06/26/18 1140 ?? Lab Status: Final result Specimen: Nasopharyngeal Swab Updated: 06/26/18 1314 ? Resp Panel Source PAPER BUNDLER Swab ? Resp Panel PCR Positive ? Comment: Respiratory Panels are performed on the [employer], using multiplexed PCR nucleic acid detection. Negative results do not preclude respiratory infection and should not be used as the sole basis for diagnosis, treatment or other management decisions. ? Adenovirus Not Detected ? Coronavirus HKU1 Not Detected ? Coronavirus NL63 Not Detected ? Coronavirus 229E Not Detected ? Coronavirus OC43 Not Detected ? Human Metapneumovirus Not Detected ? Human Rhino/Enterovirus Not Detected ? Influenza A Detected ? Influenza A H1 Not Detected ? Influenza A H1-2009 Detected ? Influenza A H3 Not Detected ? Influenza B Not Detected ? Parainfluenza 1 Not Detected ? Parainfluenza 2 Not Detected ? Parainfluenza 3 Not Detected ? Parainfluenza 4 Not Detected ? Respiratory Syncytial Virus Not Detected ? Chlamydophila pneumoniae Not Detected ? Mycoplasma pneumoniae Not Detected ?? Blood culture [[id number]] Collected: 06/26/18 1105 ?? Lab Status: Final result Specimen: Blood from Forearm, Right Updated: 07/01/18 1501 ? Blood Culture No growth at 5 days. ?? Imaging: NONE NEW Inpatient Medications: Scheduled Meds: ??? enoxaparin 40 mg Subcutaneous Nightly ??? miconazole Topical (Top) BID ??? magnesium oxide 400 mg Oral BID ??? white petrolatum-mineral oil Both Eyes BID ??? sodium chloride 0.9 % 5 mL Intravenous Q12H ??? sertraline 100 mg Oral Nightly Continuous Infusions: PRN Meds:.senna-docusate, ipratropium-albuterol, acetaminophen, sodium chloride 0.9 %, lidocaine Assessment: Ms. Lawton is a 58 y/o prior tobacco, depression, anxiety admitted to ICU with acute hypoxic respiratory failure with ARDS from influenza A pneumonia now with improved hypoxia on [place]. Course also complicated by weakness and dysphagia from ICU course which continues to improve. Advancedto regular diet. Crackles on exam likely residual from ARDS/influenza A rather than pulmonary edema- continue to monitor. Anticipating rehab - appreciate CM.?? # Hypoxic Respiratory Failure 2/ ARDS # ARDS / Influenza A # Influenza A - S/p 5 days tamiflu (end date 07/02) for influenza A - Legionella antibody positive at [facility] however legionella urinary antigen and legionella respiratory culture [place] [facility] [place] so azithromycin was stopped (treated from 06/30-07/02) - Continue PRN duo-nebs - Weaning O2 as tolerated, still requiring O2 by [place] (no home O2) ?? # Dysphagia/Hoarseness: - Hoarseness improving. Likely d/t ETT - Speech therapy following - advanced to regular today ?? # Urinary Retention improving - S/p gonzalez catheter removal, initallyy required SC on 07/07 - Renal function stable - Improved ?? # Anxiety # Depression - Continue sertraline 100 mg PO daily # Other - DVT ppx: SC lovenox - Diet/Fluids: dysphagia soft - Access: PIV - Code Status: FULL - Dispo: Anticipate SNF (does not have 21/12 support) when bed available - appreciate CM Korey Hernandez MD [address] [place] [address] medicine 07/11/2018 * Korey Hernandez MD - 07/10/2018 3:30 PM EST Images from the original note were not included. Inpatient Medicine Progress Note Hospital Day 14 days Active Hospital Problems Diagnosis ??? Influenza A (H1N1) ??? Acute respiratory distress syndrome (ARDS) ??? Respiratory failure with hypoxia ??? Hyponatremia Resolved Hospital Problems No resolved problems to display. Patient ID: Yara Lawton is a 58 y.o. female 24 Hour Events: 2-3L O2 Subjective/ROS: Breathing similar to yesterday - still not to baseline. Has been walking with nursing - still feels somewhat unsteady and weak but improving. No fevers or chills. No chest pain. No nausea, vomiting. Vitals: Last value Range last 24 hrs Temperature Temp: 36.8 ??C (98.2 ??F) Temp: [36.8 ??C (98.2 ??F)-37.1 ??C (98.8 ??F)] Heart Rate Heart Rate: 97 Heart Rate: [85-108] Blood Pressure BP: 134/78 BP: (124-139)/(62-90) Respiratory Rate Resp: 18 Resp: [16-24] SpO2 SpO2: 93 % SpO2: [93 %-96 %] Ins/Outs: Intake/Output Summary (Last 24 hours) at 07/10/2018 1706 Last data filed at 07/10/2018 0101 Gross per 24 hour Intake 0 ml Output 200 ml Net -200 ml Patient Vitals for the past 168 hrs: Weight 07/07/18 0600 72.1 kg (158 lb 15.2 oz) 07/05/18 0200 74 kg (163 lb 2.3 oz) 07/04/18 0600 75 kg (165 lb 5.5 oz) Physical Exam: General - Lying in bed, pleasant, NAD HEENT: Anicteric sclera, EOMI CV: RRR, no m/r/g Lungs: Occasional scattered rhonchi and minimal crackles right base, no wheezing Abd: Soft, ND, +BS, non-tender to deep palpation Ext: no edema Neuro: Oriented and appropriate, no focal deficits Labs: Recent Labs 07/08/1881807/07/1813607/06/18254 WBC 8.6 13.6* 11.4* HGB 9.8* 9.0* 8.4* PLATELET 376* 410* 296 Recent Labs 07/10/1822107/08/1881807/07/18136 NA 138 144 142 K 3.7 3.7 3.6 CL 102 103 100 CO2 26 28 30 BUN 18 21* 19* CREATININE 0.54* 0.51* 0.47* Recent Labs 07/10/1822107/08/1881807/07/1813607/06/18 02507/05/18 0258 CALCIUM 8.6 8.8 8.6 8.8 8.7 MAGNESIUM -- -- 0.93 0.87 0.80 PHOS -- -- 3.8 3.9 3.9 No results for input(s): AST, ALT, ALKPHOS, BILITOT, BILIDIR in the last 168 hours. No results for input(s): TROPONINT, CK in the last 168 hours. Recent Labs 07/04/18 0310 07/03/18 1727 PHART 7.49* 7.44 [id number] 43 50* PO2ART 72* 65* TIL3IDS 31.7* 33.1* Microbiology: Microbiology Results (Last 30 days) ?? Procedure Component Value Units Date/Time ?? Lower Respiratory Culture Sputum Expectorated [[id number]] (Abnormal) Collected: 07/01/18340 ?? Lab Status: Final result Specimen: Sputum Expectorated Updated: 07/03/18 0758 ? Lower Respiratory Culture -- ? [place] albicans Rare mixed bacterial morphotypes suggestive of normal upper respiratory germaine ? Gram Stain -- ? Few Neutrophils seen Few squamous epithelial cells seen Few Yeast seen Rare mixed bacterial morphotypes suggestive of normal upper respiratory germaine ?? Legionella culture Sputum Expectorated [[id number]] Collected: 07/01/18340 ?? Lab Status: Preliminary result Specimen: Sputum Expectorated Updated: 07/02/18 0842 ? Legionella Culture No Legionella isolated to date ?? Blood culture [[id number]] Collected: 06/30/18 1300 ?? Lab Status: Final result Specimen: Blood from Wrist, Right Updated: 07/05/18 1501 ? Blood Culture No growth at 5 days. ?? Blood culture [[id number]] Collected: 06/30/18 1300 ?? Lab Status: Final result Specimen: Blood from Wrist, Left Updated: 07/05/18 1501 ? Blood Culture No growth at 5 days. ?? Urine culture Indwelling Catheter Urine [[id number]] Collected: 06/26/18 1226 ?? Lab Status: Final result Specimen: Urine Updated: 06/27/18 0751 ? Urine Culture No growth (Less than 1,000 cfu/ml). ?? Legionella Urinary Antigen [[id number]] Collected: 06/26/18 1225 ?? Lab Status: Final result Specimen: Urine Updated: 06/26/18 1459 ? Legionella Urinary Antigen Negative ? Comment: A negative Legionella Urinary Antigen by EIA suggests no recent or current infection with L. pneumophila Serogroup 1. Antigen may not be present in urine in early infection, and the level of antigen present in the urine may be below the detection limit of the test. Sensitivity: 95% Specificity 95%. ? Respiratory Panel PCR [[id number]] (Abnormal) Collected: 06/26/18 1140 ?? Lab Status: Final result Specimen: Nasopharyngeal Swab Updated: 06/26/18 1314 ? Resp Panel Source PAPER BUNDLER Swab ? Resp Panel PCR Positive ? Comment: Respiratory Panels are performed on the [employer], using multiplexed PCR nucleic acid detection. Negative results do not preclude respiratory infection and should not be used as the sole basis for diagnosis, treatment or other management decisions. ? Adenovirus Not Detected ? Coronavirus HKU1 Not Detected ? Coronavirus NL63 Not Detected ? Coronavirus 229E Not Detected ? Coronavirus OC43 Not Detected ? Human Metapneumovirus Not Detected ? Human Rhino/Enterovirus Not Detected ? Influenza A Detected ? Influenza A H1 Not Detected ? Influenza A H1-2009 Detected ? Influenza A H3 Not Detected ? Influenza B Not Detected ? Parainfluenza 1 Not Detected ? Parainfluenza 2 Not Detected ? Parainfluenza 3 Not Detected ? Parainfluenza 4 Not Detected ? Respiratory Syncytial Virus Not Detected ? Chlamydophila pneumoniae Not Detected ? Mycoplasma pneumoniae Not Detected ?? Blood culture [[id number]] Collected: 06/26/18 1105 ?? Lab Status: Final result Specimen: Blood from Forearm, Right Updated: 07/01/18 1501 ? Blood Culture No growth at 5 days. ?? Imaging: NONE NEW Inpatient Medications: Scheduled Meds: ??? enoxaparin 40 mg Subcutaneous Nightly ??? miconazole Topical (Top) BID ??? magnesium oxide 400 mg Oral BID ??? white petrolatum-mineral oil Both Eyes BID ??? sodium chloride 0.9 % 5 mL Intravenous Q12H ??? sertraline 100 mg Oral Nightly Continuous Infusions: PRN Meds:.senna-docusate, ipratropium-albuterol, acetaminophen, sodium chloride 0.9 %, lidocaine Assessment: Ms. Lawton is a 58 y/o prior tobacco, depression, anxiety admitted to ICU with acute hypoxic respiratory failure with ARDS from influenza A pneumonia now with improved hypoxia on NC. Course also complicated by weakness and dysphagia from ICU course which continues to improve. Anticipating rehab - she prefers [facility]. ?? # Hypoxic Respiratory Failure 2/ ARDS # ARDS 07/02 Influenza A # Influenza A - S/p 5 days tamiflu (end date 07/02) for influenza A - Legionella antibody positive at [facility] however legionella urinary antigen and legionella respiratory culture [place] [facility] [place] so azithromycin was stopped (treated from 06/30-07/02) - Continue PRN duo-nebs - Weaning O2 as tolerated, still requiring O2 by [place] (no home O2) ?? # Dysphagia/Hoarseness: - Hoarseness improving. Likely d/t ETT - Dysphagia soft diet - Speech therapy following ?? # Urinary Retention improving - S/p gonzalez catheter removal, initallyy required SC on 07/07 - Renal function stable - Improved ?? # Anxiety # Depression - Continue sertraline 100 mg PO daily # Other - DVT ppx: SC lovenox - Diet/Fluids: dysphagia soft - Access: PIV - Code Status: FULL - Dispo: Anticipate SNF (does not have 21/12 support) when bed available - anticipate needs PA with [employer] - choices listed in CM note 07/06 Korey Hernandez MD [address] [place] [address] 07/10/2018 * Michela Freire RN - 07/10/2018 3:16 AM EST OUTCOME EVALUATION NOTE: OUTCOME SUMMARY: Yara is A&Ox4, able to make needs known. VSS on 2L NC, no complaints of pain, shortness of breath, nausea or chest pain. She ambulates to toilet with 1 assist and front wheel walker, with mild dyspnea on exertion. No issues voiding. Able to rest between care. Droplet precautions maintained. No acute events, will continue to monitor and notify team of any changes. PLAN MOVING FORWARD: Monitor respiratory status Wean O2 as tolerated Encourage ambulation Advance diet as tolerated D/C planning INDIVIDUALIZED FALL PREVENTION INTERVENTIONS: Patient-specific fall risk factors per assessment: [current deficits]: Deconditioning, dyspnea on exertion, oxygen tubing Assistance [level of assistance required for transfers and ambulation]: 1 assist with front wheel walker & oxygen Supervision [direct monitoring required during toileting and ADLs]: Eyes on, 1 assist Surveillance [continuous indirect monitoring]: Purposeful rounding, room near nurses station, call light within reach, Masimo Patient-specific fall prevention interventions for sensory deficits provided, if applicable: [X] N/A CPG GOAL OUTCOME EVALUATION: Continue with plan of care * Korey Hernandez MD - 07/09/2018 9:13 AM EST Images from the original note were not included. Inpatient Medicine Progress Note Hospital Day 13 days Active Hospital Problems Diagnosis ??? Influenza A (H1N1) ??? Acute respiratory distress syndrome (ARDS) ??? Respiratory failure with hypoxia ??? Hyponatremia Resolved Hospital Problems No resolved problems to display. Patient ID: Yara Lawton is a 58 y.o. female 24 Hour Events: -SC x 2 on 07/07, no SC on 07/08 -O2 to 2L -PT recommending inpt rehab unless has 24/7 support Subjective/ROS: She is feeling much better with her breathing than when she was admitted. No CP or cough. No fevers or chills. Walked with PT and feeling stronger. 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 Vitals: Last value Range last 24 hrs Temperature Temp: 37.1 ??C (98.8 ??F) Temp: [36.4 ??C (97.5 ??F)-37.1 ??C (98.8 ??F)] Heart Rate Heart Rate: 90 Heart Rate: [90-100] Blood Pressure BP: 144/88 BP: (132-155)/(75-88) Respiratory Rate Resp: 18 Resp: [18] SpO2 SpO2: 94 % SpO2: [93 %-96 %] Ins/Outs: Intake/Output Summary (Last 24 hours) at 07/09/2018 0913 Last data filed at 07/09/2018 0300 Gross per 24 hour Intake 0 ml Output 625 ml Net -625 ml Patient Vitals for the past 168 hrs: Weight 07/07/18 0600 72.1 kg (158 lb 15.2 oz) 07/05/18 0200 74 kg (163 lb 2.3 oz) 07/04/18 0600 75 kg (165 lb 5.5 oz) 07/03/18 0200 75.6 kg (166 lb 10.7 oz) Physical Exam: General - Lying in bed, pleasant, NAD HEENT: Anicteric sclera, EOMI CV: RRR, no m/r/g Pulm: Relatively clear, no crackles or wheezes Abd: Soft, ND, +BS, non-tender to deep palpation Ext: no edema Neuro: Oriented and appropriate, no focal deficits Labs: Recent Labs 07/08/18 0807/07/18 01307/06/18 0255 WBC 8.6 13.6* 11.4* HGB 9.8* 9.0* 8.4* PLATELET 376* 410* 296 Recent Labs 07/08/18 0807/07/18 0137 07/06/18 0255 NA 144 142 141 K 3.7 3.6 4.0 CL 103 100 99 CO2 28 30 32* BUN 21* 19* 22* CREATININE 0.51* 0.47* 0.49* Recent Labs 07/08/18 0807/07/18 0137 07/06/18 0255 07/05/18 0258 CALCIUM 8.8 8.6 8.8 8.7 MAGNESIUM -- 0.93 0.87 0.80 PHOS -- 3.8 3.9 3.9 No results for input(s): AST, ALT, ALKPHOS, BILITOT, BILIDIR in the last 168 hours. Recent Labs 07/03/18 0215 CK 59 Recent Labs 07/04/18 0310 07/03/18 1727 07/03/18 1214 PHART 7.49* 7.44 7.41 [id number] 43 50* 50* PO2ART 72* 65* 66* PUS8ALM 31.7* 33.1* 30.5* Microbiology: Microbiology Results (Last 30 days) ?? Procedure Component Value Units Date/Time ?? Lower Respiratory Culture Sputum Expectorated [[id number]] (Abnormal) Collected: 07/01/18 0341 ?? Lab Status: Final result Specimen: Sputum Expectorated Updated: 07/03/18 0758 ? Lower Respiratory Culture -- ? [place] albicans Rare mixed bacterial morphotypes suggestive of normal upper respiratory germaine ? Gram Stain -- ? Few Neutrophils seen Few squamous epithelial cells seen Few Yeast seen Rare mixed bacterial morphotypes suggestive of normal upper respiratory germaine ?? Legionella culture Sputum Expectorated [[id number]] Collected: 07/01/18 034 ?? Lab Status: Preliminary result Specimen: Sputum Expectorated Updated: 07/02/18 0842 ? Legionella Culture No Legionella isolated to date ?? Blood culture [[id number]] Collected: 06/30/18 1300 ?? Lab Status: Final result Specimen: Blood from Wrist, Right Updated: 07/05/18 1501 ? Blood Culture No growth at 5 days. ?? Blood culture [[id number]] Collected: 06/30/18 1300 ?? Lab Status: Final result Specimen: Blood from Wrist, Left Updated: 07/05/18 1501 ? Blood Culture No growth at 5 days. ?? Urine culture Indwelling Catheter Urine [[id number]] Collected: 06/26/18 1226 ?? Lab Status: Final result Specimen: Urine Updated: 06/27/18 0751 ? Urine Culture No growth (Less than 1,000 cfu/ml). ?? Legionella Urinary Antigen [[id number]] Collected: 06/26/18 1225 ?? Lab Status: Final result Specimen: Urine Updated: 06/26/18 1459 ? Legionella Urinary Antigen Negative ? Comment: A negative Legionella Urinary Antigen by EIA suggests no recent or current infection with L. pneumophila Serogroup 1. Antigen may not be present in urine in early infection, and the level of antigen present in the urine may be below the detection limit of the test. Sensitivity: 95% Specificity 95%. ? Respiratory Panel PCR [[id number]] (Abnormal) Collected: 06/26/18 1140 ?? Lab Status: Final result Specimen: Nasopharyngeal Swab Updated: 06/26/18 1314 ? Resp Panel Source PAPER BUNDLER Swab ? Resp Panel PCR Positive ? Comment: Respiratory Panels are performed on the [employer], using multiplexed PCR nucleic acid detection. Negative results do not preclude respiratory infection and should not be used as the sole basis for diagnosis, treatment or other management decisions. ? Adenovirus Not Detected ? Coronavirus HKU1 Not Detected ? Coronavirus NL63 Not Detected ? Coronavirus 229E Not Detected ? Coronavirus OC43 Not Detected ? Human Metapneumovirus Not Detected ? Human Rhino/Enterovirus Not Detected ? Influenza A Detected ? Influenza A H1 Not Detected ? Influenza A H1-2009 Detected ? Influenza A H3 Not Detected ? Influenza B Not Detected ? Parainfluenza 1 Not Detected ? Parainfluenza 2 Not Detected ? Parainfluenza 3 Not Detected ? Parainfluenza 4 Not Detected ? Respiratory Syncytial Virus Not Detected ? Chlamydophila pneumoniae Not Detected ? Mycoplasma pneumoniae Not Detected ?? Blood culture [[id number]] Collected: 06/26/18 1105 ?? Lab Status: Final result Specimen: Blood from Forearm, Right Updated: 07/01/18 1501 ? Blood Culture No growth at 5 days. ?? Imaging: NONE NEW Inpatient Medications: Scheduled Meds: ??? enoxaparin 40 mg Subcutaneous Nightly ??? miconazole Topical (Top) BID ??? magnesium oxide 400 mg Oral BID ??? white petrolatum-mineral oil Both Eyes BID ??? sodium chloride 0.9 % 5 mL Intravenous Q12H ??? sertraline 100 mg Oral Nightly Continuous Infusions: PRN Meds:.senna-docusate, ipratropium-albuterol, acetaminophen, sodium chloride 0.9 %, lidocaine Assessment: Ms. Lawton is a 58 y/o prior tobacco, depression, anxiety admitted to ICU with acute hypoxic respiratory failure with ARDS from influenza A pneumonia now with improved hypoxia on NC. Course also complicated by weakness and dysphagia from ICU course which is improving. Will need rehab - she prefers [facility]. ?? # Hypoxic Respiratory Failure 2/2 ARDS # ARDS / Influenza A # Influenza A - S/p 5 days tamiflu (end date 07/02) for influenza A - Legionella antibody positive at [facility] however legionella urinary antigen and legionella respiratory culture [place] [facility] [place] so azithromycin was stopped (treated from 06/30-07/02) - Continue PRN duo-nebs - Weaning O2 as tolerated, still requiring O2 by [place] (no home O2) ?? # Dysphagia/Hoarseness: Hoarseness improving. Likely d/t ETT - Dysphagia soft diet - Speech therapy following ?? # Urinary Retention improving - S/p gonzalez catheter removal, initallyy required SC on 07/07 - Renal function stable - Improved ?? # Anxiety # Depression - Continue sertraline 100 mg PO daily # Other - DVT ppx: SC lovenox - Diet/Fluids: dysphagia soft - Access: PIV - Code Status: FULL - Dispo: Anticipate SNF (does not have 21/12 support) when bed available - anticipate needs PA with [employer] - choices listed in CM note 07/06 Korey Hernandez MD [address] [place] [address] medicine 07/09/2018 * Jesus Juárez - 07/08/2018 3:02 PM EST Images from the original note were not included. Inpatient Medicine Progress Note Hospital Day 12 days Active Hospital Problems Diagnosis ??? Influenza A (H1N1) ??? Acute respiratory distress syndrome (ARDS) ??? Respiratory failure with hypoxia ??? Hyponatremia Resolved Hospital Problems No resolved problems to display. Patient ID: Yara Lawton is a 58 y.o. female 24 Hour Events: - O2 requirements Improving 3L --> 2L over last 24 hrs - straight cath overnight after gonzalez out - PT/OT recs for SNF ROS: voice improving. Needed some straight cath overnight after gonzalez taken out but thinks maybe she can go on her own. Feeling week. Drinking is ok. No abdominal pain. Vitals: Last value Range last 24 hrs Temperature Temp: 36.6 ??C (97.8 ??F) Temp: [36.6 ??C (97.8 ??F)-37.2 ??C (99 ??F)] Heart Rate Heart Rate: (90-105) Heart Rate: [83-103] Blood Pressure BP: (130s/80s) BP: (133-149)/(67-106) Respiratory Rate Resp: 18 Resp: [18-29] SpO2 SpO2: 96 % SpO2: [90 %-96 %] Ins/Outs: Intake/Output Summary (Last 24 hours) at 07/08/2018 1502 Last data filed at 07/08/2018 1150 Gross per 24 hour Intake 100 ml Output 550 ml Net -450 ml Patient Vitals for the past 168 hrs: Weight 07/07/18 0600 72.1 kg (158 lb 15.2 oz) 07/05/18199 74 kg (163 lb 2.3 oz) 07/04/18 0600 75 kg (165 lb 5.5 oz) 07/03/18 020 75.6 kg (166 lb 10.7 oz) 07/02/18199 75.3 kg (166 lb 0.1 oz) Physical Exam: Gen: NAD, A&Ox3, middle age female appears weak and deconditioning HEENT: sclera non-icteric, no conjunctival erythema, hoarse voice. Bandage from central line removal on right neck CV: RRR, no m/r/g, nl s1, s2 Pulm: diffuse coarse breath sounds throughout with scant wheezing Abd: soft, NT, ND Ext: no edema Neuro: no focal motor deficits grossly noted aside from generalized weakness. Orientation - person,place and time. Labs: Recent Labs 07/08/1881807/07/1813607/06/18 0255 WBC 8.6 13.6* 11.4* HGB 9.8* 9.0* 8.4* PLATELET 376* 410* 296 Recent Labs 07/08/1881807/07/1813607/06/18 0255 NA 144 142 141 K 3.7 3.6 4.0 CL 103 100 99 CO2 28 30 32* BUN 21* 19* 22* CREATININE 0.51* 0.47* 0.49* Recent Labs 07/08/1881807/07/18136 07/06/18 0255 07/05/18 0258 CALCIUM 8.8 8.6 8.8 8.7 MAGNESIUM -- 0.93 0.87 0.80 PHOS -- 3.8 3.9 3.9 No results for input(s): AST, ALT, ALKPHOS, BILITOT, BILIDIR in the last 168 hours. Recent Labs 07/03/18 0215 CK 59 Recent Labs 07/04/18 0310 07/03/18 1727 07/03/18 1214 PHART 7.49* 7.44 7.41 [id number] 43 50* 50* PO2ART 72* 65* 66* [id number] 31.7* 33.1* 30.5* Microbiology: Microbiology Results (Last 30 days) ?? Procedure Component Value Units Date/Time ?? Lower Respiratory Culture Sputum Expectorated [[id number]] (Abnormal) Collected: 07/01/18340 ?? Lab Status: Final result Specimen: Sputum Expectorated Updated: 07/03/18757 ? Lower Respiratory Culture -- ? [place] albicans Rare mixed bacterial morphotypes suggestive of normal upper respiratory germaine ? Gram Stain -- ? Few Neutrophils seen Few squamous epithelial cells seen Few Yeast seen Rare mixed bacterial morphotypes suggestive of normal upper respiratory germaine ?? Legionella culture Sputum Expectorated [[id number]] Collected: 07/01/18 034 ?? Lab Status: Preliminary result Specimen: Sputum Expectorated Updated: 07/02/18 0842 ? Legionella Culture No Legionella isolated to date ?? Blood culture [[id number]] Collected: 06/30/18 1300 ?? Lab Status: Final result Specimen: Blood from Wrist, Right Updated: 07/05/18 1501 ? Blood Culture No growth at 5 days. ?? Blood culture [[id number]] Collected: 06/30/18 1300 ?? Lab Status: Final result Specimen: Blood from Wrist, Left Updated: 07/05/18 1501 ? Blood Culture No growth at 5 days. ?? Urine culture Indwelling Catheter Urine [[id number]] Collected: 06/26/18 1226 ?? Lab Status: Final result Specimen: Urine Updated: 06/27/18 0751 ? Urine Culture No growth (Less than 1,000 cfu/ml). ?? Legionella Urinary Antigen [[id number]] Collected: 06/26/18 1225 ?? Lab Status: Final result Specimen: Urine Updated: 06/26/18 1459 ? Legionella Urinary Antigen Negative ? Comment: A negative Legionella Urinary Antigen by EIA suggests no recent or current infection with L. pneumophila Serogroup 1. Antigen may not be present in urine in early infection, and the level of antigen present in the urine may be below the detection limit of the test. Sensitivity: 95% Specificity 95%. ? Respiratory Panel PCR [[id number]] (Abnormal) Collected: 06/26/18 1140 ?? Lab Status: Final result Specimen: Nasopharyngeal Swab Updated: 06/26/18 1314 ? Resp Panel Source PAPER BUNDLER Swab ? Resp Panel PCR Positive ? Comment: Respiratory Panels are performed on the [employer], using multiplexed PCR nucleic acid detection. Negative results do not preclude respiratory infection and should not be used as the sole basis for diagnosis, treatment or other management decisions. ? Adenovirus Not Detected ? Coronavirus HKU1 Not Detected ? Coronavirus NL63 Not Detected ? Coronavirus 229E Not Detected ? Coronavirus OC43 Not Detected ? Human Metapneumovirus Not Detected ? Human Rhino/Enterovirus Not Detected ? Influenza A Detected ? Influenza A H1 Not Detected ? Influenza A H1-2009 Detected ? Influenza A H3 Not Detected ? Influenza B Not Detected ? Parainfluenza 1 Not Detected ? Parainfluenza 2 Not Detected ? Parainfluenza 3 Not Detected ? Parainfluenza 4 Not Detected ? Respiratory Syncytial Virus Not Detected ? Chlamydophila pneumoniae Not Detected ? Mycoplasma pneumoniae Not Detected ?? Blood culture [[id number]] Collected: 06/26/18 1105 ?? Lab Status: Final result Specimen: Blood from Forearm, Right Updated: 07/01/18 1501 ? Blood Culture No growth at 5 days. ?? Imaging: NONE NEW Inpatient Medications: Scheduled Meds: ??? miconazole Topical (Top) BID ??? magnesium oxide 400 mg Oral BID ??? white petrolatum-mineral oil Both Eyes BID ??? sodium chloride 0.9 % 5 mL Intravenous Q12H ??? heparin (Porcine) 5,000 Units Subcutaneous Q8H STEVEN ??? sertraline 100 mg Oral Nightly Continuous Infusions: PRN Meds:.senna-docusate, ipratropium-albuterol, acetaminophen, sodium chloride 0.9 %, lidocaine Assessment/Plan: 58 y/o female with pmhx anxiety/depression admitted with acute hypoxic respiratory failure in the setting of ARDS 2/2 influenza A. ?? Continues with hypoxia but is improving. Generalized weakness resultant from ICU course and dysphagia. Monitor for PO intake and will likely be ready for D/C to SNF if O2 needs remain stable in next 24 hrs and she can take adequate PO nutrition. # Hypoxic Respiratory Failure 2/2 ARDS # ARDS 2/2 Influenza A # Influenza A - S/p 5 days tamiflu (end date 07/02) for influenza A - Legionella antibody positive at [facility] however legionella urinary antigen and legionella respiratory culture [place] [facility] [place] so azithromycin was stopped (treated from 06/30-07/02) - Continue PRN duo-nebs - Weaning O2 as tolerated, still requiring O2 ?? # Dysphagia/Hoarseness: Hoarseness improving. Likely d/t ETT - Dysphagia soft diet - Speech therapy following ?? # Urinary Retention - S/p gonzalez catheter removal, initaly requiring PRN straight cath, ? Improving. Continue to monitor - Renal function stable - Continue bladder scan protocol ?? # Anxiety # Depression - Continue sertraline 100 mg PO daily # Other - DVT ppx: SC lovenox - Diet/Fluids: dysphagia soft - Access: PIV - Code Status: FULL - Dispo: awaiting SNF placement. Medically ready in next 24-48hrs pending PO intake Jesus Juárez DO [address] [place] [address] medicine 07/08/2018 Associated attestation - Augusto Camejo DO - 07/08/2018 4:39 PM EST [facility] Medicine Attending Attestation: Patient seen and examined independently. Available diagnostic testing reviewed. Management and planfor today reviewed with Dr. Juárez. I agree with the findings and plans as documented in their notewith any additions and/or corrections noted below. Influenza A slowly improving after complicated course. Encourage PO intake. Wean FiO2 to keep SaO2>87%. IPI Certification I certify that I am a [facility] credentialed attending provider with admitting privileges and that the patient meets or has met medical necessity to require an inpatient IPI level of care meeting a minimumof two midnights or is on the [facility] inpatient only procedure list (status C) due to: acute respiratory compromise and/or hypoxia requiring assessment every 4 hours and the ability to respond immediately to the patient's need Augusto Camejo DO Pager [phone] 07/08/2018 4:38 PM * Mona Ceballos RN - 07/08/2018 3:33 AM EST OUTCOME EVALUATION NOTE: OUTCOME SUMMARY: Pt a+o, VSS, no c/o pain. Unable to ween down o2 overnight. Sating low 90s on 2Ls. Unable to void, bladder scan 550. Straight cathed x1 for 600 ml. No issues with SC. Bladder scans under 400 for the remainder of the night. Slept well. No acute issues or events overnight. PLAN MOVING FORWARD: Continue to monitor PT/OT/[employer] INDIVIDUALIZED FALL PREVENTION INTERVENTIONS: Patient-specific fall risk factors per assessment: [current deficits]: Generalized weakness, new environment, high fall risk Assistance [level of assistance required for transfers and ambulation]: 1 assist w/ walker Supervision [direct monitoring required during toileting and ADLs]: Hands on Surveillance [continuous indirect monitoring]: Masimo, purposeful rounding Patient-specific fall prevention interventions for sensory deficits provided, if applicable: [X] No CPG GOAL OUTCOME EVALUATION: * Ирина Costello - 07/07/2018 7:09 PM EST Report received from MIKIE Banuelos [facility]. Pt received. A/Ox4. Speech clear, hypophonic, MAEW in bed. On 2 lpm NC. Lungs CTA, dim. HR reg. Given orientation to room and call lee and made comfortable. * Fátima Dey, RD - 07/07/2018 5:37 PM EST Nutrition Services Follow Up Note Reason for Intervention: ICU pt, diet advanced after extubation Principal Problem: Influenza A (H1N1) Active Problems: Respiratory failure with hypoxia Hyponatremia Acute respiratory distress syndrome (ARDS) Diet order: dysphagia soft Estimated body mass index is 25.66 kg/m?? as calculated from the following: Height as of this encounter: 167.6 cm (5' 6). Weight as of this encounter: 72.1 kg (158 lb 15.2 oz). Admit Weight: 78.2 kg Yeso Body Weight: 59.3 kg Usual Weight: Stated by pt 165 lbs/ 74.8 kg Weight changes: loss of 2.7 kg or 3.6% of her usual body wt. Meds: noted Lab Results Component Value Date NA 142 07/07/2018 K 3.6 07/07/2018 CL 100 07/07/2018 CO2 30 07/07/2018 BUN 19 (H) 07/07/2018 CREATININE 0.47 (L) 07/07/2018 GLUCOSE 100 07/07/2018 MAGNESIUM 0.93 07/07/2018 CALCIUM 8.6 07/07/2018 PHOS 3.8 07/07/2018 AST 34 (H) 06/26/2018 ALT 13 06/26/2018 ALKPHOS 74 06/26/2018 BILITOT 0.4 06/26/2018 BILIDIR 0.1 06/26/2018 TRIG 430 07/03/2018 Estimated nutrition needs: 4074-8766 calories and 105-120 gm protein Assessment: Pt seen at lunch as diet advanced to dysphagia soft post extubation yesterday. Pt states she is hungry and excited to eat but feels she will not be able to finish her meal (small amount of mac and cheese). Her only request is soft food and no bread or yogurt. She states she does not need ground or cut up meats. She denies food allergies. Declines offer of nutritional supplements and offers of other high protein foods, requesting ice cream and popsicles instead. In review of her TF intake over the last 7 days, her average intake of 557 ml (vs goal of 1300 ml) met just 42% of her goal. She has lost 2.7 kg or 3.6% of her usual body wt. Compromised nutrition intake of >7 days of <50% goal and wt loss <5% is consistent with moderate malnutrition. Plan/Recommendations: Dysphagia soft diet as ordered and per [employer] recommendations Encourage p.o. intake. Snacks of pt's preference added. Monitor weight. Nutrition to follow through hospitalization. EDITH RIDER * Nir Leal MD - 07/07/2018 12:23 PM EST MICU STAFF PROGRESS NOTE Critical Care Medicine Author: Nir Leal MD Patient seen and examined on critical care rounds. Brief HPI: Yara Lawton is a 58 y.o. woman with ARDS from influenza pneumonia. Active Problem and Important Diagnoses: ?? ARDS due to influenza A (H1-2008) ?? Acute hypoxemia respiratory failure ASSESSMENT, MANAGEMENT, and DECISION MAKING: Extubated. Stable on low-flow oxygen. Not confident that she is ready to discharge home, but it's time to leave the ICU. A few issues remain. Urine retention may be an issue. Need straight cath. Will follow. WBC up. Afebrile. May be rebound. Recommend observation. She passed swallow. Will advance limited diet as recommended. Voice very horse. If not improving in a day or so recommend evaluation by speech or ENT with visualassess ment of vocal cords. EXAM: Physical Exam Constitutional: She is oriented to person, place, and time. She is cooperative. Cardiovascular: Normal rate and regular rhythm. Pulmonary/Chest: Effort normal. She has rales in the right lower field and the left lower field. Neurological: She is alert and oriented to person, place, and time. Skin: Skin is warm and dry. Last value Range last 24 hrs Temperature Temp: 37.1 ??C (98.8 ??F) Temp: [36.9 ??C (98.4 ??F)-37.3 ??C (99.1 ??F)] Heart Rate Heart Rate: 95 Heart Rate: [92-118] Blood Pressure BP: 127/71 BP: (106-137)/(56-90) Respiratory Rate Resp: 25 Resp: [21-34] SpO2 SpO2: 97 % SpO2: [93 %-100 %] Art BP BP (Arterial Line): 121/66 BP (Arterial Line): -- Last Ht 06/26/18 167.6 cm (5' 6) Last Wt 07/07/18 72.1 kg (158 lb 15.2 oz) Body mass index is 25.66 kg/m??. IS PATIENT CRITICALLY ILL ? Is there a high potential of sudden, clinically significant, or life threatening deterioration? No Is there a need for direct personal assessment and management to treat/prevent multiple vital organfailure/deterioration? No If this patient is not critically ill, I certify the patient requires continued in-patient hospitalization for: Continue rehab. PATIENT IS CRITICALLY ILL WITH THESE DIAGNOSES BEING MANAGED BY CCS TEAM: ARDs I personally performed 25 minutes of aggregate critical care time exclusive of procedures and teaching. This includes time spent during direct patient evaluation and reassessment, interpreting diagnostic tests, directing life and/or organ supporting interventions and documentation on the unit. Nir Leal MD, PhD 07/07/2018 * Yanique Houston RN - 07/06/2018 3:36 PM EST Chart reviewed, care reviewed with primary team and at interdisciplinary rounds. Ms Lawton continues to require acute hospital care in MICU for management of respiratory failure following flu requiring intubation. Ongoing issues include ?? Extubated today-alert and oriented and speaking in whispers ?? Working with PT/OT-assist of 2 for transfer and rehab recommended Functional status prior to admission: Living independently and working [employer]. At [facility], OT felt patient could manage an acute rehab program. Her option of facility covered through her insurance was [facility] and this was a distance she did not want to consider-she prefers [facility] because of location. Based on discussions with the multi-disciplinary healthcare team, the patient would benefit from SNF/SWING level of care at discharge. ?? I have met with the patient to discuss discharge planning needs. I have reviewed the [facility] Office of Care Management letter from the Director Of Public Relations pertaining to rehab referrals. I have providedinformation on the right to choose where referrals are placed. ?? I reviewed the different levels of rehab including SNF, swing, acute. Although PT/OT feel that acute level is appropriate, she prefers the proximity to home of SNF options and will send referrals to that level. ?? I provided a list of facilities within the preferred geographic area. There were only 2 facilities in a reasonable distance that were in network to her insurance. She has a limit of 40 days (do not anticipate she will require more than this). ?? Patient preference is [facility], but was in agreement to [facility] as back upl. ?? The patient requested referrals to: ?? 1. [facility] ?? 2. [facility] ?? Expected date of discharge: uncertain at this time Note routed to Glue Cook who will communicate referrals to facilities and provide any required information. Plan for discharge is CM will continue to follow and assist with discharge planning and coordination of care as indicated. Kayli Boggs RCP - 07/06/2018 9:09 AM EST AMV Protocol: Yes SBT Protocol: Yes Vent Settings: Servo I Ventilator Mode: PS/CPAP PEEP Set: 5 FiO2: 30 % PSV: 10 Ventilator Measurements: Resp: 27 Vt Spontaneous: 303 Ve: 8 SpO2: 90 % EtCO2: 35 mmHg Airway: 8.0 @ 22 cm at the Teeth. Skin Integrity: WDL MDI Inhaled Medications: Ipratroprium Spring Nebulized Medications: Albuterol & Ipratroprium Breath Sounds: Grossly clear Secretions: Assessment / Events / Plan of the Day: Patient was received on charted settings and was supported with mechanical ventilation until. Early in course of shift ventilator was transitioned from volume control to pressure support as patient was awake and breathing spontaneously. Patient required a pressure support of 10 to achieve tidal volumes of ~300 cc's, and a comfortable RR and WOB. Fi02 was stable at 30%. Patient was extubated to nasal cannula at ~1200. Patient continued to rest comfortably with nasal cannula support for remainder of shift. Continue to support patient with supplemental oxygen. KAYLI PAUL RCP * Nir Leal MD - 07/06/2018 7:52 AM EST MICU STAFF PROGRESS NOTE Critical Care Medicine Author: Nir Leal MD Patient seen and examined on critical care rounds. Brief HPI: Yara Lawton is a 58 y.o. woman with ARDS from influenza pneumonia. Active Problem and Important Diagnoses: ?? ARDS due to influenza A (H1-2008) ?? Acute hypoxemia respiratory failure ASSESSMENT, MANAGEMENT, and DECISION MAKING: Passed SBT this morning. Wean from sedation. Plan to extubate. Assess swallow function, advance diet. EXAM: Physical Exam Constitutional: She is sedated and intubated. Cardiovascular: Normal rate and regular rhythm. Pulmonary/Chest: She is intubated. She has decreased breath sounds. Neurological: She is unresponsive. She exhibits abnormal muscle tone. GCS eye subscore is 3. GCS verbal subscore is 1. GCS motor subscore is 5. Skin: Skin is warm and dry. Last value Range last 24 hrs Temperature Temp: 36.6 ??C (97.9 ??F) Temp: [36 ??C (96.8 ??F)-37.6 ??C (99.7 ??F)] Heart Rate Heart Rate: 70 Heart Rate: [67-90] Blood Pressure BP: 118/81 BP: (107-136)/(57-81) Respiratory Rate Resp: 27 Resp: [17-36] SpO2 SpO2: 90 % SpO2: [87 %-100 %] Art BP BP (Arterial Line): 121/66 BP (Arterial Line): (107-122)/(64-66) Last Ht 06/26/18 167.6 cm (5' 6) Last Wt 07/05/18 74 kg (163 lb 2.3 oz) Body mass index is 26.33 kg/m??. IS PATIENT CRITICALLY ILL ? Is there a high potential of sudden, clinically significant, or life threatening deterioration? Yes Is there a need for direct personal assessment and management to treat/prevent multiple vital organfailure/deterioration? Yes If this patient is not critically ill, I certify the patient requires continued in-patient hospitalization for: Not applicable (N/A) PATIENT IS CRITICALLY ILL WITH THESE DIAGNOSES BEING MANAGED BY CCS TEAM: ARDs Time Accounting: AM Review 7:54 > 7:57 3 min Rounds 1230 > 1247 17 min Follow-up > 15 min Charting > 5 min I personally performed 40 minutes of aggregate critical care time exclusive of procedures and teaching. This includes time spent during direct patient evaluation and reassessment, interpreting diagnostic tests, directing life and/or organ supporting interventions and documentation on the unit. Nir Leal MD, PhD 07/06/2018 * Laura Duque, RT - 07/06/2018 4:12 AM EST AMV Protocol: Yes SBT Protocol: Yes SBT: Passed Vent Settings: Servo I Ventilator Mode: (S) PS/CPAP(End SBT HR 74 BP 140/75) PEEP Set: 5 FiO2: 30 %PSV: (S) 5 Ventilator Measurements: Resp: 25 Vt Spontaneous: 294 Ve: 8.5 SpO2: 92 % EtCO2: 39 mmHg Airway: 8.0 @ 23 cm at the Teeth. Skin Integrity: WDL MDI Inhaled Medications: Ipratroprium Spring & Atrovent 6 puff Q4 Breath Sounds: Diminished Secretions: Small, white, thick Assessment / Events / Plan of the Day: Patient received intubated and mechanically ventilated in PSV 8/5&30%. PS weaned to 5/5 throughout shift. Patient tolerating this well well. Patient alert and following commands. SBT Assessment Initial Vent Settings: 5/5 30% Initial Measurements: HR:74 RR: 30 VT: 293 MV: 8.2 SpO2: 91% ETCO2: 38 RASS (Perez Agitation-Sedation Scale): 0-->alert and calm Settings for SBT, if other than Protocol: CPAP SBT Vent Settings: PEEP: 5 30 minute measurements: HR: 74 RR: 30 VT: 294 MV: 8.5 SpO2: 93% ETCO2: 36 Assessment during SBT: Passed. Placed back on PSV 5/5 30%. Consider extubation today. * Valentino Longo RT - 07/05/2018 2:40 PM EST AMV Protocol: Yes SBT Protocol: Yes Vent Settings: Servo I Ventilator Mode: PS/CPAP PEEP Set: 5 FiO2: 30 % PSV: (S) 8(weaned per plan) Ventilator Measurements: Resp: 29 Vt Spontaneous: 325 Ve: 8.1 SpO2: 91 % EtCO2: 35 mmHg Airway: 8.0 @ 23 cm at the Teeth. Skin Integrity: WDL Inhaled Medications: MDI Inhaled Medications: Ipratroprium Spring Q6 Nebulized Medications: Albuterol & Ipratroprium Q6 Breath Sounds: Diminished, Expiratory Wheezes. Secretions: Scant, Thin, Clear/White. Assessment / Events / Plan of the Day: Received patient in PSV 12/8 35%. Patient alert, oriented and following most commands. Patient has sustained Tachypnea after turns. Weaned to 8/5 30%, patient remained stable on these settings. Plan: Wean vent settings towards SBT. RT Mac * Nir Leal MD - 07/05/2018 10:51 AM EST MICU STAFF PROGRESS NOTE Critical Care Medicine Author: Nir Leal MD Patient seen and examined on critical care rounds. Brief HPI: Yara Lawton is a 58 y.o. woman with ARDS from influenza pneumonia. Active Problem and Important Diagnoses: ?? ARDS due to influenza A (H1-2008) ?? Acute hypoxemia respiratory failure ASSESSMENT, MANAGEMENT, and DECISION MAKING: Weaning P/S. Now 10/8. FiO2 30%. Can we wean PEEP. Work towards SBT. On dexmedetomidine and fentanyl. Stop fentanyl. Off pressors. Negative 1 L with furosemide. Goal even today. Discontinue arterial line and central venous catheter, temp probe. Stood with PT this morning. Hope to extubate in the next 24 hours. EXAM: Physical Exam Constitutional: She is sedated and intubated. Cardiovascular: Normal rate and regular rhythm. Pulmonary/Chest: She is intubated. She has decreased breath sounds. Neurological: She is unresponsive. GCS eye subscore is 3. GCS verbal subscore is 1. GCS motor subscore is 5. Skin: Skin is warm and dry. Last value Range last 24 hrs Temperature Temp: 37.6 ??C (99.7 ??F) Temp: [37.1 ??C (98.8 ??F)-37.7 ??C (99.9 ??F)] Heart Rate Heart Rate: 82 Heart Rate: [66-82] Blood Pressure BP: 90/57 BP: -- Respiratory Rate Resp: 20 Resp: [13-27] SpO2 SpO2: 93 % SpO2: [90 %-94 %] Art BP BP (Arterial Line): 122/65 BP (Arterial Line): (106-136)/(54-74) Last Ht 06/26/18 167.6 cm (5' 6) Last Wt 07/05/18 74 kg (163 lb 2.3 oz) Body mass index is 26.33 kg/m??. IS PATIENT CRITICALLY ILL ? Is there a high potential of sudden, clinically significant, or life threatening deterioration? Yes Is there a need for direct personal assessment and management to treat/prevent multiple vital organfailure/deterioration? Yes If this patient is not critically ill, I certify the patient requires continued in-patient hospitalization for: Not applicable (N/A) PATIENT IS CRITICALLY ILL WITH THESE DIAGNOSES BEING MANAGED BY CCS TEAM: ARDs Time Accounting: Rounds 1051 > 1102 11 min Charting > 5 min I personally performed 16 minutes of aggregate critical care time exclusive of procedures and teaching. This includes time spent during direct patient evaluation and reassessment, interpreting diagnostic tests, directing life and/or organ supporting interventions and documentation on the unit. Nir Leal MD, PhD 07/05/2018 * Laura Duque, RT - 07/05/2018 4:46 AM EST AMV Protocol: No ARDS Protocol: Yes CTICU Protocol: No SBT Protocol: No Vent Settings: Servo I Ventilator Mode: PS/CPAP Tidal Volume Set: 480 Resp Rate Set: 12 PEEP Set: 8FiO2: 35 % Ventilator Measurements: Resp: 22 Vt Exhaled: 370 PIP: 21 MAP: 10.7 Plateau Press: 22 Ve: 8.4 PEEP: (UTM) SpO2: 92 % EtCO2: 39 mmHg Airway: 8.0 @ 23 cm at the Teeth. Skin Integrity: WDL MDI Inhaled Medications: Albuterol Nebulized Medications: Albuterol & Ipratroprium 6 puff Q4 Breath Sounds: Diminished Secretions: Scant, thin, white Assessment / Events / Plan of the Day: Patient received intubated and mechanically ventilated in VCV 480 (8cc/kg) X 12 +8 & 35%. Patient breathing over set rate and following commands. Patient transitioned to PS 14/8. Toleratingwell. RR- 16 VT- 392 MV- 6.4 SpO2- 92% ETCO2- 42. 04:15- PS titrated to 12. RR- 22 VT- 377 MV- 8.4 SpO2- 92% ETCO2- 39. Patient remains on PS 12/8 & 35%. Consider SBT when appropriate. Wean settings as tolerated. * Jesus Ramirez RD - 07/04/2018 2:54 PM EST Clinical Nutrition Progress Note Reason for intervention: Follow up Recommendations: TFs running at 45 ml/hr (prior goal 65 ml/hr). Propofol OFF. Thus recommend a change in enteral formulation. Suggest Peptamen AF with a goal rate of 63 ml/hr plus 4 scoops protein powder daily (2 scoops BID). At goal: 1260 ml, 1612 kcal, 120 gm pro, 1018 ml water from formula + 200 ml with protein powder administration and 100% RDIs for most vitamins and minerals. Rate adjusted to compensate for unplanned time off TFs 2/2 treatments, procedures, etc. Monitor weight. I was able to reach the patient's provider, VENESSA Mascorro team via text page to [phone], regarding above. Yara Lawton is a 58 y.o. female Principal Problem: Acute respiratory distress syndrome (ARDS) Active Problems: Respiratory failure with hypoxia Influenza A (H1N1) Hyponatremia Lab Results Component Value Date NA 139 07/04/2018 K 4.5 07/04/2018 CL 98 07/04/2018 CO2 32 (H) 07/04/2018 BUN 17 07/04/2018 CREATININE 0.43 (L) 07/04/2018 GLUCOSE 124 07/04/2018 MAGNESIUM 0.69 07/04/2018 CALCIUM 8.2 (L) 07/04/2018 PHOS 3.2 07/04/2018 AST 34 (H) 06/26/2018 ALT 13 06/26/2018 ALKPHOS 74 06/26/2018 BILITOT 0.4 06/26/2018 BILIDIR 0.1 06/26/2018 TRIG 430 07/03/2018 I/O last 3 completed shifts: In: 4131.2 [I.V.:1908.2; Other:100; NG/GT:1923; IV Piggyback:200] Out: 4320 [Urine:4320] Last BM: 07/01 Feeding tube: OGT ??? potassium chloride (KAYCIEL) 20 mEq/15 mL oral solution 20-60 mEq ??? magnesium oxide (MAG-OX) tablet 400 mg ??? famotidine (PEPCID) tablet 20 mg ? ? dexmedetomidine (PRECEDEX) 4 mcg/mL (standard Adult & Pedi greater than 20kg) infusion (premix) ??? NORepinephrine 16 mcg/mL (standard ADULT and Pedi greater than 20 kg) infusion ??? chlorhexidine (PERIDEX) 0.12 % oral solution 15 mL ??? acetaminophen (TYLENOL) 650 mg/20.3 mL oral liquid 650 mg ??? white petrolatum-mineral oil ophthalmic ointment ??? Assess AND [] fentaNYL bolus from bag 25 mcg AND fentaNYL 50 mcg/mL infusion AND fentaNYL bolus from bag 25-100 mcg AND fentaNYL shift total and Settings verification ??? tube feeding diet ??? glucose (GLUTOSE) 40% oral gel OR dextrose 50% intravenous solution 25- 50 mL OR glucagon (human recombinant) injection SolR 1 mg ??? docusate sodium (COLACE) oral liquid 100 mg AND sennosides (SENOKOT) 8.8 mg/5 mL oral syrup17.6 mg ??? polyethylene glycol (MIRALAX) packet 17 g ??? lactulose (CHRONULAC) 20 gram/30 mL oral solution 20 g ??? bisacodyl (DULCOLAX) suppository 10 mg ??? propofol (DIPRIVAN) infusion ??? albuterol 90 mcg/actuation inhaler 6 puff ??? ipratropium (ATROVENT HFA) inhaler 6 puff ??? sodium chloride 0.9 % flush 5 mL ??? sodium chloride 0.9 % flush 5-20 mL ??? lidocaine (XYLOCAINE) 10 mg/mL (1 %) injection 3 mg ??? sodium chloride 0.9% infusion ??? heparin (Porcine) subcutaneous injection 5,000 Units ??? sertraline (ZOLOFT) tablet 100 mg Estimated body mass index is 26.69 kg/m?? as calculated from the following: Height as of this encounter: 167.6 cm (5' 6). Weight as of this encounter: 75 kg (165 lb 5.5 oz). Adm weight (kg): 78.2 kg Yeso body weight: 59.3 kg (130 lb 11.7 oz) Adjusted ideal body weight: 65.6 kg (144 lb 9.2 oz) Nutrition needs estimated at: 9658-7214 calories and 105-120 grams protein daily. Current TF rec (on propofol): Peptamen Intense VHP with a goal rate of 65 ml per hour. This rate iscalculated to compensate for unplanned time off feedings due to potential procedures, etc. This will provide 1300 calories, 120 grams protein, 1092 ml water from formula and 87% of RDI's for vitaminsand minerals. Also will provide ~100 gm CHO daily for glucose obligatory tissue. EDITH NERI Pager # [phone] * Amada Brian RN - 07/04/2018 2:03 PM EST 1400-CM [facility] Melita Rockwell [phone] [id number] Pt has limited VNA services of : SK:40 visits a calendar year Aide :15 years a calendar year PT/OT combined: 26 visits a calendar year . This CM asked if pt had any inpt rehab coverage. [facility] will review and call this CM back re rehab coverage `1830 CM received VM from Melitamolly Stokesego re Rehab/SNF coverage : 2 facilities are contracted- [facility] and [facility]. Covered inpt SNF per calendar year is 40 days. * Nir Leal MD - 07/04/2018 10:48 AM EST MICU STAFF PROGRESS NOTE Critical Care Medicine Author: Nir Leal MD Patient seen and examined on critical care rounds. Brief HPI: Yara Lawton is a 58 y.o. woman with ARDS from influenza pneumonia. Active Problem and Important Diagnoses: ?? ARDS due to influenza A (H1-2008) ?? Acute hypoxemia respiratory failure ASSESSMENT, MANAGEMENT, and DECISION MAKING: Stable oxygenation. Tidal volumes liberalized to 8 mL/kg overnight. P/f hanging in mid-160s to 180s. There was concern for legionella, but culture negative. Off azithromycin. Completed oseltamivir. Sputum with bay, not a pathogen. Not too worried about the TG levels, would be okay to do propofol and follow if needed. Continue enteric feeds. Lighten sedation as tolerated. EXAM: Physical Exam Constitutional: She is sedated and intubated. Cardiovascular: Normal rate and regular rhythm. Pulmonary/Chest: She is intubated. She has decreased breath sounds. Neurological: She is unresponsive. GCS eye subscore is 3. GCS verbal subscore is 1. GCS motor subscore is 5. Skin: Skin is warm and dry. Last value Range last 24 hrs Temperature Temp: 37.3 ??C (99.1 ??F) Temp: [36.6 ??C (97.9 ??F)-37.8 ??C (100 ??F)] Heart Rate Heart Rate: 76 Heart Rate: [66-78] Blood Pressure BP: 90/57 BP: -- Respiratory Rate Resp: 14 Resp: [12-18] SpO2 SpO2: 94 % SpO2: [89 %-95 %] Art BP BP (Arterial Line): 113/64 BP (Arterial Line): (92-130)/(51-66) Last Ht 06/26/18 167.6 cm (5' 6) Last Wt 07/04/18 75 kg (165 lb 5.5 oz) Body mass index is 26.69 kg/m??. IS PATIENT CRITICALLY ILL ? Is there a high potential of sudden, clinically significant, or life threatening deterioration? Yes Is there a need for direct personal assessment and management to treat/prevent multiple vital organfailure/deterioration? Yes If this patient is not critically ill, I certify the patient requires continued in-patient hospitalization for: Not applicable (N/A) PATIENT IS CRITICALLY ILL WITH THESE DIAGNOSES BEING MANAGED BY CCS TEAM: ARDs Time Accounting: Rounds 1048 > 1114 26 min Charting 1502 > 1507 5 min I personally performed 31 minutes of aggregate critical care time exclusive of procedures and teaching. This includes time spent during direct patient evaluation and reassessment, interpreting diagnostic tests, directing life and/or organ supporting interventions and documentation on the unit. Nir Leal MD, PhD 07/04/2018 * Valentino Longo RT - 07/04/2018 8:35 AM EST AMV Protocol: No ARDS Protocol: Yes CTICU Protocol: No SBT Protocol: No Protocol order change pending. Vent Settings: Servo I Ventilator Mode: VC Tidal Volume Set: 480 Resp Rate Set: 12 PEEP Set: 8 FiO2: 40 % Ventilator Measurements: Resp: 13 Vt Exhaled: 479 PIP: 29 MAP: 11.4 Plateau Press: 23 Ve: 6 PEEP: 9 cmH20 SpO2: 94 % EtCO2: 46 mmHg ?? Airway: 8.0 @ 23 cm at the Teeth. Skin Integrity: WDL Inhaled Medications: MDI Inhaled Medications: Ipratroprium Spring Q4 Nebulized Medications: Albuterol & Ipratroprium Q4 Breath Sounds: Diminished Secretions: N/A Assessment / Events / Plan of the Day: Received patient in VCV 480(8cc/kg)/x12/+8/40%. Patient sedated and synchronous with the vent. Overnight vent settings were adjusted to 8cc/kg. Weaned FiO2 to 30%, patient remained synchronous on above setting throughout the day. Plan: Keep patient in VCV if tolerated, wean vent settings accordingly. RT Mac * Augusto Markham, JENNIFER - 07/04/2018 4:44 AM EST AMV Protocol: No ARDS Protocol: Yes CTICU Protocol: No SBT Protocol: No Vent Settings: Servo I Ventilator Mode: VC Tidal Volume Set: 480 Resp Rate Set: 12 PEEP Set: 8 FiO2: 40 % Ventilator Measurements: Resp: 13 Vt Exhaled: 470 PIP: 27 MAP: 11.1 Plateau Press: 24 Ve: 5.9 PEEP: 10 cmH20 SpO2: 94 % EtCO2: 48 mmHg Airway: 8.0 @ 23 cm at the Teeth. Skin Integrity: WDL Overnight, ventilator liberalized by increasing tidal volume to 8cc per kilo of ideal body weight. Plateau pressure 24 with tidal volume 8cc per kilo of ideal body weight, RASS -3. AUGUSTO MARKHAM, SALES AND TRAINING SPECIALIST * Vipin Flower MD - 07/03/2018 10:57 AM EST Critical Care Medicine Staff Progress Note 58 y.o. female with the following active issues: Acute hypoxemic respiratory failure ARDS Influenza A infection Sepsis Sedation-related hypotension 24 hr events/subjective: PEEP weaned to 8. Nimbex stopped. Had 1 desat overnight which required prolonged increased of FiO2 to 50%. Low dose Levophed. PE Vent settings: VC R-18 Vt-360 PEEP-8 FiO2-40% Gen: Intubated and sedated female CVS: RRR, no murmur Lungs: Coarse BS anteriorly Abd: +BS, mildly distended, nontender Ext: No peripheral edema Skin: No rash or jaundice Neuro: Heavily sedated Labs WBC-7 Hgb-8.8 Plt-283 K-3.9 Cl-99 HCO3-30 BUN-8 Cr-0.42 Triglycerides-430 Last AB.38/54/64on40% Studies CXR ordered ASSESSMENT, MANAGEMENT, and DECISION MAKING: This 58 yo female was admitted w/ acute hypoxemic respiratory failure and ARDS requiring mechanicalventilation due to sepsis from to Influenza A infection. She was paralyzed and proned w/ improvement in her airway pressures and oxygenation. She is ready for liberation from ARDSNet ventilation. I hope she will be ready for an extubation attempt in a few days. Due to rising triglycerides, will plan will stopping Propofol today. Will start Precedex if needed. Will liberate from ARDSNet ventilation this morning. CXR ordered and may diurese. Levophed for sedated-related hypotension. TFs. SQ heparin for DVT prophylaxis. IS PATIENT CRITICALLY ILL ? Is there a high potential of sudden, clinically significant, or life threatening deterioration? Yes Is there a need for direct personal assessment and management to treat/prevent multiple vital organfailure/deterioration? Yes If this patient is not critically ill, the reason for continued hospitalization is [] PATIENT IS CRITICALLY ILL WITH THESE DIAGNOSES BEING MANAGED BY CCS TEAM: Acute hypoxemic respiratory failure ARDS I personally performed 33 minutes of aggregate critical care time (10:57am- 11:30am) exclusive of procedures and teaching. This includes time during direct patient evaluation and reassessment, interpreting labs and studies, directing life and/or organ supporting organ interventions, and documentation on the unit. * Laura Duque, RT - 07/03/2018 4:12 AM EST AMV Protocol: No ARDS Protocol: Yes CTICU Protocol: No SBT Protocol: No Vent Settings: Servo I Ventilator Mode: VC Tidal Volume Set: 360 Resp Rate Set: 18 PEEP Set: 8 FiO2: 50 % Ventilator Measurements: Resp: 18 Vt Exhaled: 374 PIP: 29 MAP: 12.8 Plateau Press: 22 Ve: 6.7 PEEP: 10 cmH20 SpO2: 92 % EtCO2: 46 mmHg Airway: 8.0 @ 23 cm at the Teeth. Skin Integrity: WDL MDI Inhaled Medications: Ipratroprium Spring & Albuterol 6 puff Q4 Breath Sounds: Diminished Secretions: Scant, thin, white Assessment / Events / Plan of the Day: Patient received intubated and mechanically ventilated in VCV 360 (6cc/kg)X18+8&40%. Remained in these settings throughout shift. FiO2 increased around 02:00 for a sustained desat to 50%. Patient synchronous with vent. Plateau pressures remained 20-22 withdriving pressures 12-14. SpO2 within target goals for ARDS protocol. Received scheduled medications. Continue to support patient with mechanical ventilation. ? transition to AMV protocol, wean settings as tolerated. * Korey Escamilla RCP - 07/02/2018 4:19 PM EST AMV Protocol: SBT Protocol: No Vent Settings: Servo I Ventilator Mode: VC Tidal Volume Set: 360 Resp Rate Set: 18 PEEP Set: (S) 8 FiO2: 40 % Ventilator Measurements: Resp: 18 Vt Exhaled: 367 PIP: 27 MAP: 13.8 Plateau Press: 21 Ve: 6.6 PEEP: 9 cmH20 SpO2: 95 % EtCO2: 45 mmHg Driving Pressure: 13 Airway: 8.0 @ 22 cm at the Teeth. Skin Integrity: WDL Inhaled medications: 6 puffs Albuterol / 6 puffs Atrovent Q4 hours scheduled Breath Sounds: course, airation in all [place] Secretions: clear/white with some old bloody flecks Received pt this AM on settings as above with a PEEP of 10 - tolerating well. Decision made to takept off of paralytic and obtain an ABG this afternoon. ABG 15:30 7.37,44,82 PF ratio 205. Plan at this time - wean PEEP to 8 (tolerating well) and over night consider liberalizing VT to 7 cc/kg (currently at 6) Pt synchronous with ventilator at this time. Inhaled medications scheduled Q4. Minimal secretions. Will wean as tolerated and liberalize vent settings when appropriate. KOREY ESCAMILLA RCP * Vipin Flower MD - 07/02/2018 7:31 AM EST Critical Care Medicine Staff Progress Note 58 y.o. female with the following active issues: Acute hypoxemic respiratory failure ARDS Influenza A infection Sepsis Sedation-related hypotension 24 hr events/subjective: No fever. Requiring low dose Levophed for sedation. PEEP weaned to 10. PE Vent settings: VC R-18 Vt-360 PEEP-10 FiO2-40% Gen: Intubated and sedated female CVS: RRR, no murmur Lungs: Crackles posteriorly Abd: +BS, mildly distended, nontender Ext: No peripheral edema Skin: No rash or jaundice Neuro: Heavily sedated Labs WBC-9.7 Hgb-8.5 Plt-277 K-3.9 BUN-9 Cr-0.42 Triglycerides-361 Legionella cx neg Studies None ASSESSMENT, MANAGEMENT, and DECISION MAKING: This 58 yo female was admitted w/ acute hypoxemic respiratory failure and ARDS requiring mechanicalventilation due to sepsis from to Influenza A infection. She was paralyzed and proned w/ improvement in her airway pressures and oxygenation. Nimbex will be stopped and hopefully can be liberated from ARDSNet later today. Due to rising triglycerides, will plan will stopping Propofol in the next day once out of ARDSNet ventilation. Will plan on stopping Nimbex this morning. Will liberate from ARDSNet ventilation after paralysis stopped. Completes Tamiflu today. D/c azithromycin as Legionella cx neg. Levophed for sedated-related hypotension. TFs. SQ heparin for DVT prophylaxis. IS PATIENT CRITICALLY ILL ? Is there a high potential of sudden, clinically significant, or life threatening deterioration? Yes Is there a need for direct personal assessment and management to treat/prevent multiple vital organfailure/deterioration? Yes If this patient is not critically ill, the reason for continued hospitalization is [] PATIENT IS CRITICALLY ILL WITH THESE DIAGNOSES BEING MANAGED BY CCS TEAM: Acute hypoxemic respiratory failure ARDS I personally performed 34 minutes of aggregate critical care time (7.31am- 7:37am, 9:54am-10:09am, 11:17am-11:29am) exclusive of procedures and teaching. This includes time during direct patient evaluation and reassessment, interpreting labs and studies, directing life and/or organ supporting organ i nterventions, and documentation on the unit. * Nir Silva [facility] - 07/02/2018 5:22 AM EST AMV Protocol: No ARDS Protocol: No CTICU Protocol: No SBT Protocol: No Vent Settings: Servo I Ventilator Mode: VC Tidal Volume Set: 360 Resp Rate Set: 18 PEEP Set: 10 FiO2: 40 % Ventilator Measurements: Resp: 18 Vt Exhaled: 372 PIP: 28 MAP: 13.9 Plateau Press: 25 Ve: 6.7 PEEP: 15 cmH20 SpO2: 94 % EtCO2: 42 mmHg Airway: 8.0 @ 23 cm at the Teeth. Skin Integrity: WDL MDI Inhaled Medications: Ipratroprium Spring Nebulized Medications: Albuterol & Ipratroprium Breath Sounds: Diminished Secretions: small amount Assessment / Events / Plan of the Day: Pt remains on VCV as noted, PEEP weaned to 10. Plan to wean FiO2 as tolerated. Nir Silva RCP * Stephan Fink RCP - 07/01/2018 3:30 PM EST AMV Protocol: No ARDS Protocol: Yes CTICU Protocol: No SBT Protocol: Yes SBT: Not performed/Excluded: PEEP greater than 10 cmH2O ?? Vent Settings: Servo I Ventilator Mode: VC Tidal Volume Set: (S) 360 6/kg per ARDS protocol Resp Rate Set: (S) 18 PEEP Set: 12 FiO2: 40 % ?? Ventilator Measurements: Resp: 18 Vt Exhaled: 372 PIP: 28 MAP: 15 Plateau Press: 25 Ve: 6.5 PEEP: 15 cmH20 SpO2: 97 % EtCO2:38 mmHg ?? Airway: 8.0 @ 23 cm at the Teeth. Skin Integrity: Exception: small scab left upper lip ?? MDI Inhaled Medications: Albuterol / Ipratroprium Spring Breath Sounds: diminished Secretions: small thin clear/white ?? Assessment / Events / Plan of the Day: Ms. Lawton remained intubated and sedated on VC throughoutthe day. Pt was placed supine this AM and plan is to leave supine tonight. PEEP Weaned from 14 to 12. * Jesus Ramirez RD - 07/01/2018 3:19 PM EST Clinical Nutrition Progress Note Reason for intervention: Follow up Recommendations: TFs off since yesterday evening. Patient now being proned, on cisatracurium. Propofol at current rate will provide 586 calories from lipid daily - suggest checking TG. Last BM 06/28 - may need to titrate up bowel meds. Monitor weight. I was able to reach the patient's provider, VENESSA Mascorro team via text page, regarding above. Yara Lawton is a 58 y.o. female Principal Problem: Influenza A (H1N1) Active Problems: Respiratory failure with hypoxia Hyponatremia Lab Results Component Value Date NA 138 07/01/2018 K 4.2 07/01/2018 CL 101 07/01/2018 CO2 27 07/01/2018 BUN 15 07/01/2018 CREATININE 0.41 (L) 07/01/2018 GLUCOSE 100 07/01/2018 MAGNESIUM 0.81 07/01/2018 CALCIUM 8.3 (L) 07/01/2018 PHOS 3.8 07/01/2018 AST 34 (H) 06/26/2018 ALT 13 06/26/2018 ALKPHOS 74 06/26/2018 BILITOT 0.4 06/26/2018 BILIDIR 0.1 06/26/2018 I/O last 3 completed shifts: In: 4681.9 [I.V.:2807.8; Other:250; NG/GT:1069; IV Piggyback:555.1] Out: 1430 [Urine:1430] Last BM: 06/28 Feeding tube: OGT ??? chlorhexidine (PERIDEX) 0.12 % oral solution 15 mL ??? azithromycin (ZITHROMAX) tablet 500 mg ??? acetaminophen (TYLENOL) 650 mg/20.3 mL oral liquid 650 mg ??? white petrolatum-mineral oil ophthalmic ointment ??? Assess AND [] fentaNYL bolus from bag 25 mcg AND fentaNYL 50 mcg/mL infusion AND fentaNYL bolus from bag 25-100 mcg AND fentaNYL shift total and Settings verification ??? cisatracurium (NIMBEX) 200 mg in sodium chloride 0.9% 220 mL infusion ??? tube feeding diet ??? glucose (GLUTOSE) 40% oral gel OR dextrose 50% intravenous solution 25- 50 mL OR glucagon (human recombinant) injection SolR 1 mg ??? docusate sodium (COLACE) oral liquid 100 mg AND sennosides (SENOKOT) 8.8 mg/5 mL oral syrup17.6 mg ??? polyethylene glycol (MIRALAX) packet 17 g ??? lactulose (CHRONULAC) 20 gram/30 mL oral solution 20 g ??? bisacodyl (DULCOLAX) suppository 10 mg ??? propofol (DIPRIVAN) infusion ? ? PHENYLephrine (DONI-SYNEPHRINE) 20 mg in sodium chloride 250 mL (standard ADULT & Pedi greater than 20kg) infusion ??? albuterol 90 mcg/actuation inhaler 6 puff ??? ipratropium (ATROVENT HFA) inhaler 6 puff ??? potassium chloride 10 mEq in 100 mL OR potassium chloride 10 mEq in 100 mL OR potassiumchloride 10 mEq in 100 mL ??? sodium chloride 0.9 % flush 5 mL ??? sodium chloride 0.9 % flush 5-20 mL ??? lidocaine (XYLOCAINE) 10 mg/mL (1 %) injection 3 mg ??? sodium chloride 0.9% infusion ??? heparin (Porcine) subcutaneous injection 5,000 Units ??? oseltamivir (TAMIFLU) capsule 75 mg ??? sertraline (ZOLOFT) tablet 100 mg Estimated body mass index is 26.05 kg/m?? as calculated from the following: Height as of this encounter: 167.6 cm (5' 6). Weight as of this encounter: 73.2 kg (161 lb 6 oz). Adm weight (kg): 78.2 kg Yeso body weight: 59.3 kg (130 lb 11.7 oz) Adjusted ideal body weight: 64.9 kg (142 lb 15.8 oz) Nutrition needs estimated at: 5315-5936 calories and 105-120 grams protein daily. Current TF rec (on propofol): Peptamen Intense VHP with a goal rate of 65 ml per hour. This rate iscalculated to compensate for unplanned time off feedings due to potential procedures, etc. This will provide 1300 calories, 120 grams protein, 1092 ml water from formula and 87% of RDI's for vitaminsand minerals. Also will provide ~100 gm CHO daily for glucose obligatory tissue. EDITH NERI Pager # [phone] * Bonny Mckeon PT - 07/01/2018 1:42 PM EST Physical Therapy Note Patient remains inappropriate for PT due to now requiring proning on vent and on paralytics. Will follow. Bonny Mckeon PT Pager [phone] * Vipin Flower MD - 07/01/2018 7:38 AM EST Critical Care Medicine Staff Progress Note 58 y.o. female with the following active issues: Acute hypoxemic respiratory failure ARDS Influenza A infection Sepsis Sedation-related hypotension 24 hr events/subjective: Low grade fever to 38.1. No hypotension. Proned again. PE Vent settings: VC R-18 Vt-360 PEEP-14 FiO2-40% Gen: Intubated and sedated female CVS: RRR, no murmur Lungs: Crackles posteriorly Abd: +BS, mildly distended, nontender Ext: No peripheral edema Skin: No rash or jaundice Neuro: Paralyzed Labs WBC-9.6 Hgb-8.7 Plt-278 K-4.2 BUN-15 Cr-0.41 Prone AB.30/54/74on40% (P/F-185) Supine AB.34/50/80on40% (P/F-200) Studies None ASSESSMENT, MANAGEMENT, and DECISION MAKING: This 58 yo female was admitted w/ acute hypoxemic respiratory failure and ARDS requiring mechanicalventilation due to sepsis from to Influenza A infection. She has been paralyzed and proned w/ improvement in her plateaus (25), driving pressure (11) and P/F >150. She will not be proned later today. A Legionella Ab at the time of admission from [facility] has returned positive w/ a neg urinary Ag here. It seems unlikely that she has the flu and Legionella PNA. I sent a Legionella cx and if it's negative, will stop azithromycin. Propofol and fentanyl for heavy sedation for ARDSNet ventilation. ARDSNet ventilation. Will work on weaning PEEP today. Keep paralyzed for 48 hrs. Continue Tamiflu for 7 days. Continue azithromycin for potential Legionella PNA. Legionella cx pending. TFs. Doni for sedation-related hypotension. SQ heparin for DVT prophylaxis. IS PATIENT CRITICALLY ILL ? Is there a high potential of sudden, clinically significant, or life threatening deterioration? Yes Is there a need for direct personal assessment and management to treat/prevent multiple vital organfailure/deterioration? Yes If this patient is not critically ill, the reason for continued hospitalization is [] PATIENT IS CRITICALLY ILL WITH THESE DIAGNOSES BEING MANAGED BY CCS TEAM: Acute hypoxemic respiratory failure ARDS I personally performed 32 minutes of aggregate critical care time (7.38am- 7:44am, 10:26am-10:36am, 10:58am-11:06am, 12:07pm-12:15pm) exclusive of procedures and teaching. This includes time during direct patient evaluation and reassessment, interpreting labs and studies, directing life and/or organ supporting organ interventions, and documentation on the unit. * Jesus Juarez RCP - 06/30/2018 8:59 PM EST AMV Protocol: No ARDS Protocol: Yes CTICU Protocol: No SBT Protocol: No SBT: Not performed/Excluded: PEEP greater than 10 cmH2O and not in protocol. Vent Settings: Servo I Ventilator Mode: VC Tidal Volume Set: 360 Resp Rate Set: 18 PEEP Set: 14 FiO2: 40 % Ventilator Measurements: Resp: 18 Vt Exhaled: 371 PIP: 29 MAP: 17.4 Plateau Press: 26 Ve: 6.7 PEEP: 15 cmH20 SpO2: 96 % EtCO2: 45 mmHg Airway: 8.0 @ 22 cm at the Teeth. Skin Integrity: WDL MDI Inhaled Medications: Ipratroprium Spring Q4. Albuterol Q4 - 6 puffs Breath Sounds: Diminished Secretions: Small/White Assessment / Events / Plan of the Day: Received patient on VCV 360x18 P14 60%. (Vt at 6cc/kg). Plateau pressures ~27. Patient was placed prone ~1930. ABG at 2148 - 7.29 / 56 / 94 / 26. P/F ratio 157.FiO2 weaned to 40% throughout the night per SpO2. Sputum sample obtained and sent to lab. ABG at 0550 - 7.32 / 56 / 74 / 29 / 2.6. P/F [id number]. Will continue to support on ventilator in ARDS protocol. JESUS JUAREZ RCP * Mikaela Rhodes RRT - 06/30/2018 5:15 PM EST AMV Protocol: No ARDS Protocol: Yes CTICU Protocol: No SBT Protocol: Yes SBT: Not performed/Excluded: PEEP greater than 10 cmH2O Vent Settings: Servo I Ventilator Mode: VC Tidal Volume Set: (S) 360(adjusted to 6/kg per ARDS protocol, plan to paralyze, prone) Resp Rate Set: (S) 18(increased with decreased TV) PEEP Set: 14 FiO2:60 % Ventilator Measurements: Resp: 18 Vt Exhaled: 374 PIP: 34 MAP: 19 Plateau Press: 26 Ve: 6.5 PEEP: 17 cmH20 SpO2: 94 % EtCO2:38 mmHg Airway: 8.0 @ 23 cm at the Teeth. Skin Integrity: Exception: small scab left upper lip MDI Inhaled Medications: Ipratroprium Spring Nebulized Medications: Albuterol & Ipratroprium Breath Sounds: diminished Secretions: small thin clear/white Assessment / Events / Plan of the Day: Ms. Lawton remained intubated and sedated on VC throughoutthe day. TV was adjusted to 6 mL/kg per ARDS protocol, RR increased to 18 to maintain equivalent minute ventilation. SpO2 remained mostly 90-92%, unable to wean O2. ABG on 60% 7./ (P/F 103). Plan is to paralyze and prone after IJ placement, continue ARDS protocol. MIKAELA RHODES, SALES AND TRAINING SPECIALIST * Bonny Mckeon PT - 06/30/2018 2:24 PM EST Physical Therapy Note PT continues to monitor this patient to assess for readiness to initiate PT. She has been reintubated and required increased pressor dose, so PT withheld today. Will continue to follow. Bonny Mckeon, PT Pager [phone] * Esthela Cordero OT - 06/30/2018 1:47 PM EST Pt n/a for OT evaluation yet. Will cont to follow. Jazmine Cordero OT #[id number] * Vipin Flower MD - 06/30/2018 8:02 AM EST Critical Care Medicine Staff Progress Note 58 y.o. female with the following active issues: Acute hypoxemic respiratory failure ARDS Influenza A infection Sepsis Sedation-related hypotension 24 hr events/subjective: Low grade 38.1. Legionella Ab came back positive from [facility]. Increasing O2 needs and vent support. Requiring Doni for sedation-related hypotension. PE Vent settings: VC R-16 VT-400 FiO2-60% PEEP-14 Gen: Intubated and sedated female CVS: RRR, no murmur Lungs: Crackles anteriorly Abd: +BS, mildly distended, nontender Ext: No peripheral edema Skin: No rash or jaundice Neuro: Sedated Labs WBC-10.9 Hgb-9.4 Plt-323 K-3.8 BUN-15 Cr-0.54 P/F: 104 Studies CXR shows persistent b/l infiltrates which don't appear to be changed ASSESSMENT, MANAGEMENT, and DECISION MAKING: This 58 yo female was admitted w/ acute hypoxemic respiratory failure and ARDS requiring mechanicalventilation due to sepsis from to Influenza A infection. Her oxygenation worsened in the last 24 hrs w/ need for increased PEEP. Her P/F today is 104. Will plan on paralyzing and proning. A Legionella Ab from [facility] has returned positive w/ a neg urinary Ag here. It seems unlikely that she has the flu and Legionella PNA. I'm going to send a Legionella cx and if it's negative, will stop azithromycin. Propofol and fentanyl for heavy sedation for ARDSNet ventilation. ARDSNet ventilation. Paralyze and prone. Continue Tamiflu for 7 days. Continue azithromycin for potential Legionella PNA. Sending Legionella cx. TFs. Doni for sedation-related hypotension. Will d/c Pepcid as she is taking adequate POs. SQ heparin for DVT prophylaxis. IS PATIENT CRITICALLY ILL ? Is there a high potential of sudden, clinically significant, or life threatening deterioration? Yes Is there a need for direct personal assessment and management to treat/prevent multiple vital organfailure/deterioration? Yes If this patient is not critically ill, the reason for continued hospitalization is [] PATIENT IS CRITICALLY ILL WITH THESE DIAGNOSES BEING MANAGED BY CCS TEAM: Acute hypoxemic respiratory failure ARDS I personally performed 44 minutes of aggregate critical care time (8:02am- 8:06am, 9:58am-10:22am, 2:58pm-3:14pm) exclusive of procedures and teaching. This includes time during direct patient evaluation and reassessment, interpreting labs and studies, directing life and/or organ supporting organ int erventions, and documentation on the unit. * April Parker RRT - 06/29/2018 9:12 PM EST AMV Protocol: No ARDS Protocol: Yes SBT Protocol: Yes SBT: Not performed/Excluded: PEEP greater than 10 cmH2O Vent Settings: Servo I Ventilator Mode: VC Tidal Volume Set: 400 Resp Rate Set: 16 PEEP Set: 10 FiO2: 40 % Ventilator Measurements: Resp: 20 Vt Exhaled: 395 PIP: 26 MAP: 14 Plateau Press: 23 Ve: 6.5 PEEP: 11 cmH20 SpO2: 94 % EtCO2:39 mmHg Airway: 8.0 @ 23 cm at the Teeth. Skin Integrity: WNL ?? Inhaled Medications: Albuterol and Atrovent MDI Q 4 hours Breath Sounds: Decreased, aeration appreciated in all [place] Secretions: small thin white/clear Assessment / Events / Plan: (0205) SPO2 85% FIO2 increased to 70% and PEEP 12 to get SPO2 88% to 93% PAPER BUNDLER/RN aware. (0517) SPO2 87% PEEP increased to +14 ans FIO2 to 75% SPO2 increased to 90%.PAPER BUNDLER/RN aware. APRIL PARKER RRT * Korey Escamilla RCP - 06/29/2018 4:29 PM EST AMV Protocol: Yes SBT Protocol: Yes Vent Settings: Servo I Ventilator Mode: VC Tidal Volume Set: 400 Resp Rate Set: 16 PEEP Set: 10 FiO2: (S) 40 % TI: 1 second Ventilator Measurements: Resp: 16 Vt Exhaled: 395 PIP: 27 MAP: 13.7 Plateau Press: 23 Ve: 6.4 Total PEEP: 11 cmH20 SpO2: 95 % EtCO2: 41 mmHg Driving pressure: 13 Airway: 8.0 @ 23 cm at the Teeth. Skin Integrity: WNL Inhaled Medications: Albuterol and Atrovent MDI Q4 hours Breath Sounds: decreased, airation appreciated in all [place] Secretions: white/clear Received pt on settings as above - no changes made to ventilatory status. FIO2 weaned for O2 saturations > 92% - 40/45% Plateau pressures 23 - 24 for driving pressures 13-14. 06:00 ABG 7.38, 46 78 pm 50% FIO2 PF ratio 156 Will continue to wean as tolerated and transition to pressure support when ready. KOREY ESCAMILLA RCP * Jesus Ramirez RD - 06/29/2018 12:14 PM EST Clinical Nutrition Consult Note Reason for intervention: Consult TF Recommendations: Propofol at current rate will provide 470 calories from lipid daily - suggest checking TG. While on propofol, suggest: Peptamen Intense VHP with a goal rate of 65 ml per hour. This rate is calculated to compensate for unplanned time off feedings due to potential procedures, etc. This will provide 1300 calories, 120 grams protein, 1092 ml water from formula and 87% of RDI's for vitamins and minerals. Also will provide ~100 gm CHO daily for glucose obligatory tissue. Monitor weight. I was able to reach the patient's provider, VENESSA Mascorro team in IDRs, regarding above. Yara Lawton is a 58 y.o. female Principal Problem: Influenza A (H1N1) Active Problems: Respiratory failure with hypoxia Hyponatremia Lab Results Component Value Date NA 137 06/29/2018 K 4.2 06/29/2018 CL 98 06/29/2018 CO2 27 06/29/2018 BUN 12 06/29/2018 CREATININE 0.46 (L) 06/29/2018 GLUCOSE 99 06/29/2018 MAGNESIUM 0.97 06/29/2018 CALCIUM 8.6 06/29/2018 PHOS 4.7 (H) 06/29/2018 AST 34 (H) 06/26/2018 ALT 13 06/26/2018 ALKPHOS 74 06/26/2018 BILITOT 0.4 06/26/2018 BILIDIR 0.1 06/26/2018 I/O last 3 completed shifts: In: 3366.2 [P.O.:540; I.V.:2661.2; Other:165] Out: 2485 [Urine:2385; Other:100] Last BM: 06/28 Feeding tube: OGT ??? glucose (GLUTOSE) 40% oral gel OR dextrose 50% intravenous solution 25- 50 mL OR glucagon (human recombinant) injection SolR 1 mg ??? Assess AND [] fentaNYL bolus from bag 25 mcg AND fentaNYL 50 mcg/mL infusion AND fentaNYL bolus from bag 25-100 mcg AND fentaNYL shift total and Settings verification ??? docusate sodium (COLACE) oral liquid 100 mg AND sennosides (SENOKOT) 8.8 mg/5 mL oral syrup17.6 mg ??? polyethylene glycol (MIRALAX) packet 17 g ??? lactulose (CHRONULAC) 20 gram/30 mL oral solution 20 g ??? bisacodyl (DULCOLAX) suppository 10 mg ??? propofol (DIPRIVAN) infusion ? ? PHENYLephrine (DONI-SYNEPHRINE) 20 mg in sodium chloride 250 mL (standard ADULT & Pedi greater than 20kg) infusion ??? albuterol 90 mcg/actuation inhaler 6 puff ??? ipratropium (ATROVENT HFA) inhaler 6 puff ??? potassium chloride 10 mEq in 100 mL OR potassium chloride 10 mEq in 100 mL OR potassiumchloride 10 mEq in 100 mL ??? famotidine (PEPCID) tablet 20 mg ??? sodium chloride 0.9 % flush 5 mL ??? sodium chloride 0.9 % flush 5-20 mL ??? lidocaine (XYLOCAINE) 10 mg/mL (1 %) injection 3 mg ??? sodium chloride 0.9% infusion ??? heparin (Porcine) subcutaneous injection 5,000 Units ??? oseltamivir (TAMIFLU) capsule 75 mg ??? sertraline (ZOLOFT) tablet 100 mg ??? acetaminophen (TYLENOL) tablet 650 mg Estimated body mass index is 25.66 kg/m?? as calculated from the following: Height as of this encounter: 167.6 cm (5' 6). Weight as of this encounter: 72.1 kg (158 lb 15.2 oz). Adm weight (kg): 78.2 kg Yeso body weight: 59.3 kg (130 lb 11.7 oz) Adjusted ideal body weight: 64.4 kg (142 lb 0.3 oz) Nutrition needs estimated at: 2204-0791 calories and 105-120 grams protein daily. EDITH NERI Pager # [phone] * Vipin Flower MD - 06/29/2018 12:05 PM EST Critical Care Medicine Staff Progress Note 58 y.o. female with the following active issues: Acute hypoxemic respiratory failure ARDS Influenza A infection Sepsis 24 hr events/subjective: Intubated for worsening hypoxemia. Requiring Doni. Desat'd and had increased Doni when turned recently. PE Vent settings: VC R-16 Vt-400 PEEP-10 FiO2-45% Gen: Intubated and sedated female CVS: RRR, no murmur Lungs: Crackles anteriorly Abd: +BS, soft, nontender Ext: No peripheral edema Skin: No rash or jaundice Neuro: Sedated Labs WBC-7.2 Hgb-10 Plt-233 Na-130 K-3.9 Cl-91 HCO3-26 BUN-11 Cr-0.53 Lactate-1 Studies No new imaging ASSESSMENT, MANAGEMENT, and DECISION MAKING: This 58 yo female was admitted w/ acute hypoxemic respiratory failure and ARDS due sepsis from to Influenza A infection. She was intubated yesterday for worsening hypoxemia. Her airway pressures are good and her FiO2 has been able to be weaned. She is requiring Doni for sedation related hypotension.She is likely facing at least a few days of vent support. Propofol and fentanyl. Wean PEEP and may try to transition over to PSV later today. Continue Tamiflu and will stop ceftriaxone as a bacterial infection is not apparent. Doni for BP support due to sedation. If persistently needed, then will place central line Start TFs. SQ heparin for DVT prophylaxis. IS PATIENT CRITICALLY ILL ? Is there a high potential of sudden, clinically significant, or life threatening deterioration? Yes Is there a need for direct personal assessment and management to treat/prevent multiple vital organfailure/deterioration? Yes If this patient is not critically ill, the reason for continued hospitalization is [] PATIENT IS CRITICALLY ILL WITH THESE DIAGNOSES BEING MANAGED BY CCS TEAM: Acute hypoxemic respiratory failure ARDS I personally performed 30 minutes of aggregate critical care time (12:05pm- 12:35pm) exclusive of procedures and teaching. This includes time during direct patient evaluation and reassessment, interpreting labs and studies, directing life and/or organ supporting organ interventions, and documentation on the unit. * April Parker SALES AND TRAINING SPECIALIST - 06/29/2018 3:10 AM EST AMV Protocol: Yes SBT Protocol: Yes SBT: Not performed/Excluded: PEEP greater than 10 cmH2O Vent Settings: Servo I Ventilator Mode: VC Tidal Volume Set: 400 Resp Rate Set: 16 PEEP Set: (S) 12FiO2: (S) 50 % Ventilator Measurements: Resp: 16 Vt Exhaled: 400 PIP: 31 MAP: 16 Plateau Press: 27 Ve: 6.4 PEEP: 13 cmH20 SpO2: 98 % EtCO2:32 mmHg Airway: 8.0 @ 23 cm at the Teeth. Skin Integrity: WDL Assessment / Events / Plan: 06/28/18 -(1935) FIO2 decreased to 70% and PEEP decreased from 14 to 12. 06/29/18 -(0147) FIO2 weaned to 50% -(0320) PEEP weaned to 10. APRIL PARKER RRT * Anel Phillips RCP - 06/28/2018 2:27 PM EST Respiratory Therapy NIV Note NIV Settings: NIV Mode: S/T IPAP (cmH20): 12 EPAP (cmH20): 8 Pressure Support (cm H2O): 4 FiO2 (%): 60 % NIV Measurements: Resp: (!) 41 Mve: 14.2 Leak (L/min): 10 L/min Vte: 339 SpO2: 91 % Current Medications: , Nebulized Medications: Albuterol & Ipratroprium Skin Assessment: NIV Skin Assessment WDL: WDL Except Bridge of Nose Skin Assessment: Erythema(compl. of soreness, wound consult ordered, meiplex placed) Mepilex Applied: Yes Nares Assessment WDL: WDL Breath Sounds: Crackles/Crackles Vent Settings: Servo I Ventilator Mode: VC Tidal Volume Set: 400 Resp Rate Set: 16 PEEP Set: 12 FiO2: 80 % Ventilator Measurements: Resp: 16 Vt Exhaled: 399 PIP: 32 MAP: 16.5 Plateau Press: Ve: 6.4 PEEP: SpO2: 96 % EtCO2: 40 mmHg Airway: 8.0 @ 23 cm at the Teeth. Skin Integrity: WDL Nebulized Medications: Albuterol & Ipratroprium Breath Sounds: diminished/crackles Secretions: None Assessment: Upon exam this AM pt was awake and interactive with cares. Pt had good bilateral chest rise with fine retractions. Pt was on HFNC 55 of flow and 80%. Pt later this AM pt was transitioned to to BIPAP due to poor SP02 on HFNC 100%. Pt maribel BIPAP well but continued to have low SP02 on the above noted settings. Mid afternoon team decided to intubate and initiate mechanical ventilation. Post intubation pt was initiated on mechanical ventilation approx 6.0 cc/kg. PEEP was increased to 14 due to increased 02 demand. Post intubation ABG was 7.32/50.5/90.7 no changes per team. Plan: Intubation ventilate per ARDS protocol. ANEL PHILLIPS RCP * Vipin Flower MD - 06/28/2018 11:21 AM EST Critical Care Medicine Staff Progress Note 58 y.o. female with the following active issues: Acute hypoxemic respiratory failure Influenza A infection Sepsis 24 hr events/subjective: Alternating between BiPAP and HFNC w/ increasing O2 needs up to 100%. No fever. Feels about the same w/ increased SOB w/ activity. PE Vitals: T-36.8 HR-83 BP-121/72 RR-30 Sat-93% (100%HFFM at 55L/min) Gen: Female wearing HF FM, lying in bed CVS: RRR, no murmur Lungs: Crackles in all lung walden Abd: +BS, soft, nontender Ext: No peripheral edema Skin: No rash or jaundice Neuro: Intact Labs WBC-7.2 Hgb-10 Plt-233 Na-130 K-3.9 Cl-91 HCO3-26 BUN-11 Cr-0.53 Studies No new imaging ASSESSMENT, MANAGEMENT, and DECISION MAKING: This 58 yo female was admitted w/ acute hypoxemic respiratory failure due sepsis from to Influenza A infection. She is continuing to require significant O2 needs via HFO2, alternating between BiPAP. She has significant b/l infiltrates on her most recent CXR. She is developing ARDS. Her O2 needs areup today from yesterday, so she is at significant risk of deterioration to where she would need vent support. I informed her of this. Will change to BiPAP and if O2 needs not significantly reduced, will consider early intubation. Continue Tamiflu. Will give Lasix 20mg IV x1 to keep out of positive fluid balance. Continue ceftriaxone for 5 days. Sips and chips. SQ heparin. IS PATIENT CRITICALLY ILL ? Is there a high potential of sudden, clinically significant, or life threatening deterioration? Yes Is there a need for direct personal assessment and management to treat/prevent multiple vital organfailure/deterioration? Yes If this patient is not critically ill, the reason for continued hospitalization is [] PATIENT IS CRITICALLY ILL WITH THESE DIAGNOSES BEING MANAGED BY [facility] TEAM: Acute hypoxemic respiratory failure Sepsis I personally performed 30 minutes of aggregate critical care time (11:21am- 11:51am) exclusive of procedures and teaching. This includes time during direct patient evaluation and reassessment, interpreting labs and studies, directing life and/or organ supporting organ interventions, and documentation on the unit. * Louise Tamayo OT - 06/28/2018 11:10 AM EST Occupational Therapy Note: OT referral received, chart reviewed in eDH. Per chart pt with high FiO2 requirements at this time.OT will follow up as appropriate. Louise Tamayo OT Pager [phone] Occupational Therapy Rehabilitation Department * Slime Ozuna RT - 06/28/2018 5:39 AM EST Respiratory Therapy Heated Humidified High Flow INDICATIONS: High O2 requirement and Work of breathing HIGH FLOW SETTINGS: Interface: High flow mask Flow: 55 L/min FiO2: (S) 80 %(sp 90) VITAL SIGNS: HR: 85 RR: (!) 32 SpO2: 92 % SKIN ASSESSMENT: NIV Skin Assessment WDL: WDL Except Bridge of Nose Skin Assessment: Erythema(compl. of soreness, wound consult ordered, meiplex placed) Mepilex Applied: Yes Nares Assessment WDL: WDL CURRENT MEDICATIONS: , Nebulized Medications: Albuterol & Ipratroprium BREATH SOUNDS: diminished ASSESSMENT: Received patient on high flow mask 50lpm 70% sating 94% RR ~24 titrated to 65% No complaint of SOB Given scheduled nebs ~2040 desating to mid 80s rr mid 40s. Offered BiPAP, patient said she had just gotten back from thebathroom and got SOB, will wear it tonight. Titrated to 70% Desat while sleeping placed on BiPAP IPAP 12 EPAP 8 70% titrated down to 50% ~0130 sustained desat required 70% to maintain SpO2 92% Requesting off BiPAP ~0500 to HFMask requiring 80% FiO2. Wore BiAPAP ~5 hours PLAN: SpO2 goal >92% NIV / Heated High Flow Duoneb Q4 RT Shayan * Jazmine Bhatia, RT - 06/27/2018 7:34 PM EST Respiratory Therapy Heated Humidified High Flow INDICATIONS: High O2 requirement, Work of breathing and Heat/Humidification HIGH FLOW SETTINGS: Interface: High flow mask Flow: 50 L/min FiO2: 70% VITAL SIGNS: HR: 89 RR: 24 SpO2: 93 % SKIN ASSESSMENT: NIV Skin Assessment WDL: WDL Mepilex Applied: No Nares Assessment WDL: WDL CURRENT MEDICATIONS: Nebulized Medications: Albuterol & Ipratroprium Q4 BREATH SOUNDS: Course crackles bilaterally Last Chest X-ray: Results for orders placed during the hospital encounter of 06/26/18 XR Chest PA or AP 1 view Narrative EXAMINATION: XR CHEST PA OR AP 1 VIEW CLINICAL HISTORY: hypoxia TECHNIQUE: 1 view of the chest 1440 hours COMPARISON: CT 06/26/2018 chest x-ray 06/26/2018 FINDINGS: AP portable chest 1440 hours continues to demonstrate widespread multifocal areas of airspace infiltrates consistent with bilateral pneumonia with little change in appearance of the chest along for the AP technique. The heart size is normal, vascularity is obscured. Air bronchograms are evident centrally, bony structures are intact Impression Extensive bilateral pulmonary infiltrates similar to the studies of earlier the same day Thank you for letting us participate in the care of this patient. For questions regarding this report, please contact the number below. Electronically signed by: ARCADIO CHAPMAN [facility] ([phone]), at 06/26/2018 2:56 PM ASSESSMENT: Received patient on HFM 50L and 60%. 1415: RN increased FiO2 to 100% following a sustained desaturation with exertion. 1447: Placed patient on S/T: IPAP 12, EPAP 8 and FiO2 70% for an increased FiO2 requirement. 1824: Transitioned patient to HFM 50L and 70%. PLAN: Continue to support patient with HFT and NIV. Continue to provide inhaled medication. RT Zoie * Michelle Lea RN - 06/27/2018 1:40 PM EST 1330 Assumed care of patient at approx 1300. A+O, No complaints of pain, discomfort, or shortness of breath. Pt resting comfortably in bed. High flow @ 60 FiO2. 1830 Patient transferred to ICU N 37. A+O, no complaints of pain/discomfort. Transferred with RT onhigh flow. * Vipin Flower MD - 06/27/2018 9:37 AM EST Critical Care Medicine Staff Progress Note 58 y.o. female with the following active issues: Acute hypoxemic respiratory failure Influenza A infection Sepsis 24 hr events/subjective: Required BiPAP overnight and now on HFNC at 60%. Febrile to 39.5. PE Vitals: T-36.7 HR-86 BP-102/64 R-28 Sat-91% (60%on50L) Gen: Female wearing HF FM, lying in bed CVS: RRR, no murmur Lungs: Crackles in all lung walden except for apeces Abd: +BS, soft, nontender Ext: No peripheral edema Skin: No rash or jaundice Neuro: Intact Labs WBC-7 Hgb-10.5 Plt-204 Na-129 K-3.7 Cl-91 HCO3-25 BUN-11 Cr-0.66 Studies CXR shows dense b/l infiltrates ASSESSMENT, MANAGEMENT, and DECISION MAKING: This 58 yo female was admitted w/ acute hypoxemic respiratory failure due sepsis from to Influenza A infection. While she has been able to be weaned to HFNC, she is on 60% and has worsening infiltrates on CXR. I'm concerned that she may be developing ARDS and may worsen before she recovers. Support on BiPAP/HFNC. Continue Tamiflu. Will continue ceftriaxone for at least 1 more day. Sips and chips. SQ heparin. IS PATIENT CRITICALLY ILL ? Is there a high potential of sudden, clinically significant, or life threatening deterioration? Yes Is there a need for direct personal assessment and management to treat/prevent multiple vital organfailure/deterioration? Yes If this patient is not critically ill, the reason for continued hospitalization is [] PATIENT IS CRITICALLY ILL WITH THESE DIAGNOSES BEING MANAGED BY [facility] TEAM: Acute hypoxemic respiratory failure Sepsis I personally performed 31 minutes of aggregate critical care time (9:37am- 9:56am, 2:07pm-2:19pm) exclusive of procedures and teaching. This includes time during direct patient evaluation and reassessment, interpreting labs and studies, directing life and/or organ supporting organ interventions, and documentation on the unit. * Yvonne Frausto RN - 06/27/2018 6:04 AM EST Yara became febrile at beginning of shift, see doc flow- tylenol given with good effect. Alternatedbetween high flow mask and Bi-PAP overnight for pt comfort. No UOP throughout the night, but also no PO intake due to Bi-PAP use, andrew team notifed. Bladder scanned this am for 181. Will continue tomonitor. NSR-ST on tele w/ LBBB. Salina Kay RCP - 06/27/2018 4:57 AM EST Respiratory Therapy NIV Note NIV Settings: NIV Mode: S/T IPAP (cmH20): 12 EPAP (cmH20): 8 Pressure Support (cm H2O): 4 FiO2 (%): 60 % NIV Measurements: Resp: (!) 32 Mve: 14.6 Leak (L/min): 16 L/min Vte: 438 SpO2: 96 % Current Medications: Nebulized Medications: Albuterol & Ipratroprium given Q4 Skin Assessment: NIV Skin Assessment WDL: WDL Mepilex Applied: Yes Nares Assessment WDL: WDL Assessment: Received pt on BIPAP. [id number] Break off BIPAP. Placed pt on HFmask 60 liters 70%. Sats 96% RR 30-35. Pt stated breathing was Okay. 99 Agreed to go back on BIPAP. Plan: Continue to follow. SALINA CARRILLO RCP Ernesto Vital MD - 06/26/2018 2:31 PM EST MICU STAFF PROGRESS NOTE Critical Care Medicine Author: ERNESTO ARAUZ Patient seen and examined on admission to critical care. 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 Presented to local ER in [facility] and found to be hypoxemic with multifocal pneumonia. Subsequent testing reveals H1N1 Influenza A infection Active problems: Acute hypoxemic respiratory failure H1N1 Influenza A infection - multifocal pneumonia Exam: Last value Range last 24 hrs Temperature Temp: 36.8 ??C (98.2 ??F) Temp: [36.8 ??C (98.2 ??F)] Heart Rate Heart Rate: 97 Heart Rate: [84-97] Blood Pressure BP: 122/60 BP: (94-122)/(58-67) Respiratory Rate Resp: (!) 36 Resp: [20-48] SpO2 SpO2: 97 % SpO2: [94 %-98 %] Art BP BP (Arterial Line): -- BiPAP 12/8, FiO2 0.45 - RR around 30 but can talk in short sentences - sats 97% Coarse breath sounds Abdomen soft and no tender Normal heart sounds No edema Warm peripheries Intake/Output Summary (Last 24 hours) at 06/26/2018 1431 Last data filed at 06/26/2018 1200 Gross per 24 hour Intake 70 ml Output 300 ml Net -230 ml Current Drips: ??? sodium chloride 0.9% Scheduled: ??? insulin lispro 2-8 Units Subcutaneous Q4H STEVEN ??? famotidine 20 mg Oral Daily ??? sodium chloride 0.9 % 5 mL Intravenous Q12H ??? heparin (Porcine) 5,000 Units Subcutaneous Q8H STEVEN ??? ipratropium-albuterol 3 mL Nebulization Q4H STEVEN ??? oseltamivir 75 mg Oral BID ??? cefTRIAXone 2 g Intravenous Q24H ??? [START ON 06/27/2018] azithromycin 500 mg Intravenous Q24H PRN: Glucose 40% oral gel OR dextrose 50% OR glucagon (human recombinant), sodium chloride 0.9 %, lidocaine, sodium chloride 0.9%, acetaminophen Labs/studies: CBC Lab Results Component Value Date WBC 9.0 06/26/2018 Hemoglobin 10.9 (L) 06/26/2018 Hematocrit 32.0 (L) 06/26/2018 Platelets 185 06/26/2018 Lab Results Component Value Date NA 128 (L) 06/26/2018 K 4.0 06/26/2018 CL 89 (L) 06/26/2018 CO2 24 06/26/2018 BUN 14 06/26/2018 CREATININE 0.77 06/26/2018 GLUCOSE 127 06/26/2018 CALCIUM 8.3 (L) 06/26/2018 ESTGFR 84 06/26/2018 Influenza A Detected Abnormal Not Detected Final Influenza A H1 Not Detected Not Detected Final Influenza A H1-2009 Detected Abnormal Not Detected Final Influenza A H3 Not Detected Not Detected Final Influenza B Not Detected PaO2 45 on HFNC at 1.0 Much improved oxygenation on BiPAP CT reviewed - dense patchy multilobar consolidation ASSESSMENT, MANAGEMENT, and DECISION MAKING: Severe hypoxemia in setting of H1N1 influenza. Hyponatremia. Otherwise this is a single organ system failure I have spoken with patient and her and told them that I suspect she will need respiratory support in our ICU for several days. They are aware that she may deteriorate before she improves and I estimated a 20-30% chance of requiring intubation. For now she is tolerating BiPAP well. We will treat with Tamiflu and empiric antibiotics for community- acquired pneumonia. We will continue her only home med, Zoloft. She should be n.p.o. Tonight until we determine whether she will need intubation. She will receive prophylactic heparin to prevent venous thromboembolism. IS PATIENT CRITICALLY ILL ? Is there a high potential of sudden, clinically significant, or life threatening deterioration? Yes Is there a need for direct personal assessment and management to treat/prevent multiple vital organfailure/deterioration? Yes If this patient is not critically ill, I certify the patient requires continued in-patient hospitalization for [] PATIENT IS CRITICALLY ILL WITH THESE DIAGNOSES BEING MANAGED BY [facility] TEAM: Hyponatremia Pneumonia Viral: Specify suspected or known virus: Influenza A H1N1 Respiratory Failure Acute with hypoxia I personally performed 40 minutes of aggregate critical care time exclusive of procedures and teaching. This includes time spent during direct patient evaluation and reassessment, interpreting diagnostic tests, directing life and/or organ supporting interventions and documentation on the unit. Ernesto Arauz MD 06/26/2018 2:31 PM * Gregory Ambriz, RT - 06/26/2018 12:02 PM EST Respiratory Care Non-Invasive Ventilation Note Indication: ?? Respiratory Failure NIV Protocol: Yes NIV Settings: NIV Mode: S/T IPAP (cmH20): 12 EPAP (cmH20): 8 Pressure Support (cm H2O): 4 FiO2 (%): 50 % Interface: Mask: Full face Size: Medium Skin Integrity: WDL Mepilex: Y NIV Measurements: Resp: 29 Vte: 487 Mve: 14.2 Leak (L/min): 7 L/min SpO2: 96 % Lung sounds: Coarse Inhaled Medications: DuoNeb Assessment: Patient came to ICU from OSH on 100% NRB with SpO2 in mid 90's. HFNC was started but PaO2 was still in mid 40's. V60 was started on above settings. SpO2 climbed to mid 90's on 50% FiO2. Plan: Get another ABG to reassess current settings RT SHAYNE documented in this encounter H&P Notes * Carol Ann Ingram MD - 07/07/2018 2:30 PM EST Images from the original note were not included. Inpatient Hospital Medicine - Admission Note Problem List: Active Hospital Problems Diagnosis ??? Influenza A (H1N1) ??? Acute respiratory distress syndrome (ARDS) ??? Respiratory failure with hypoxia ??? Hyponatremia Resolved Hospital Problems No resolved problems to display. There are no active non-hospital problems to display for this patient. ID: 58 y.o. Female [place] [facility] [place] breath. History of Present Illness: HPI 58 y/o female with pmhx anxiety, depression, tobacco abuse, LBBB, migraines who is admitted in transfer from [facility] with respiratory failure. The patient was in her usual state until 1 week prior to presentation when she developed progressive shortness of breath associated with chills and a cough productive of yellow coloured sputum. She initially presented to [facility] where she was noted to be hypoxic into the 70s with tachycardia andfevers. She was placed on a 100% non-rebreather with improvement in her saturations to the mid-90s.A Chest XR and CT Chest both revealed bilateral multifocal pneumonia and her Flu swab was positive for Influenza A. She was subsequently transferred [place] [facility] [place] for escalated care. Upon arrival to [facility] she was transitioned to Bipap due to ongoing hypoxia. Unfortunately due to ongoing hypoxia, she was ultimately intubated on 06/28. On 06/30 pt had worsening oxygenation with increasing FiO2 requirements. A P/F ratio on 06/30 was 104, so she was paralyzed and proned. On 07/01, her P/F improved and she did not require proning. Nimbex was stopped on 07/02/18. Over the next several daysher P/F continued to improve and she was transitioned to pressure support. On 07/06, she was extubated to nasal canula with success. She was started on broad spectrum antibiotics upon initial presentation to OSH (ceftriaxone, azithromycin, vancomycin) however these were quickly stopped given negative respiratory cultures. At this time the patient reports some residual shortness of breath with a cough productive of kee-brown sputum. She also reports a sore throat but feels this is improving. Denies any chest pain, dizziness, abdominal or urinary symptoms. Review of Systems: Review of Systems 10 point review of systems negative other than what is detailed above. Past Medical and Surgical History: No past medical history on file. No past surgical history on file. Prior To Admission Medications: Medications Prior to Admission Medication Sig Dispense Refill Last Dose ??? sertraline (ZOLOFT) 100 mg Tablet Take 100 mg by mouth daily. ??? LORazepam (ATIVAN) 0.5 mg Tablet Take 0.5 mg by mouth as needed for Anxiety. ??? acyclovir (ZOVIRAX) 400 mg Tablet Take 400 mg by mouth as needed. ??? [DISCONTINUED] ketoconazole (NIZORAL) 2 % Cream Apply to affected areas on the face daily untilclear and then 1-2 times weekly 60 g 3 ??? [DISCONTINUED] clonAZEpam (KLONOPIN) 0.25 mg disintegrating tablet Allergies: Allergies Allergen Reactions ??? Citalopram Hydrobromide ??? Paroxetine Hcl Family History: No family history on file. Social History and Habits: Social History Socioeconomic History ??? Marital status: Spouse name: Not on file ??? Number of children: Not on file ??? Years of education: Not on file ??? Highest education level: Not on file Social Needs ??? Financial resource strain: Not on file ??? Food insecurity - worry: Not on file ??? Food insecurity - inability: Not on file ??? Transportation needs - medical: Not on file ??? Transportation needs - non-medical: Not on file Occupational History ??? Not on file Tobacco Use ??? Smoking status: Never Smoker ??? Smokeless tobacco: Never Used Substance and Sexual Activity ??? Alcohol use: Not on file ??? Drug use: Not on file ??? Sexual activity: Not on file Other Topics Concern ??? Not on file Social History Narrative ??? Not on file Immunizations: There is no immunization history on file for this patient. Physical Exam: Last Set of Vitals and range of vitals over past 24 hours: Last value Range last 24 hrs Temperature Temp: 37.1 ??C (98.8 ??F) Temp: [36.9 ??C (98.4 ??F)-37.3 ??C (99.1 ??F)] Heart Rate Heart Rate: (90-100) Heart Rate: [92-118] Blood Pressure BP: 127/71 BP: (106-137)/(57-90) Respiratory Rate Resp: 25 Resp: [21-28] SpO2 SpO2: 94 % SpO2: [93 %-97 %] Body mass index is 25.66 kg/m??. Physical Exam Constitutional: She is oriented to person, place, and time. She appears well- developed and well-nourished. No distress. HENT: Head: Normocephalic and atraumatic. Mouth/Throat: Oropharynx is clear and moist. No oropharyngeal exudate. Hoarse voice Eyes: Pupils are equal, round, and reactive to light. EOM are normal. No scleral icterus. Neck: Normal range of motion. Neck supple. Cardiovascular: Regular rhythm, normal heart sounds and intact distal pulses. Pulmonary/Chest: Effort normal. Bilateral wheezing Abdominal: Soft. Bowel sounds are normal. She exhibits no distension and no mass. There is no tenderness. There is no rebound and no guarding. Musculoskeletal: Normal range of motion. She exhibits no edema, tenderness or deformity. Lymphadenopathy: She has no cervical adenopathy. Neurological: She is alert and oriented to person, place, and time. No cranial nerve deficit. Skin: Skin is warm and dry. No rash noted. She is not diaphoretic. No erythema. Psychiatric: She has a normal mood and affect. Laboratory (Last 24 Hours): Recent Results (from the past 24 hour(s)) Basic Metabolic Panel (non-fasting) Result Value Ref Range Glucose Lvl 100 65 - 199 mg/dL BUN 19 (H) 8 - 18 mg/dL Creatinine 0.47 (L) 0.70 - 1.20 mg/dL Sodium 142 135 - 145 mmol/L Potassium 3.6 3.5 - 5.0 mmol/L Chloride 100 98 - 107 mmol/L CO2 30 22 - 31 mmol/L Anion Gap 12 5 - 15 mmol/L Calcium 8.6 8.5 - 10.5 mg/dL eGFR 107 >=60 mL/min/1.73 m?? eGFR 124 >=60 mL/min/1.73 m?? Magnesium Result Value Ref Range Magnesium 0.93 0.69 - 1.07 mmol/L Phosphorus Result Value Ref Range Phosphorus 3.8 2.5 - 4.5 mg/dL Hemogram Result Value Ref Range WBC 13.6 (H) 4.0 - 9.5 x10(3)/mcL RBC 3.11 (L) 4.00 - 5.21 x10(6)/mcL Hemoglobin 9.0 (L) 11.7 - 15.5 gm/dL Hematocrit 28.4 (L) 35.7 - 45.8 % MCV 91.3 82.6 - 94.4 fL MCH 28.9 27.1 - 32.0 pg MCHC 31.7 31.7 - 35.0 gm/dL Platelets 410 (H) 145 - 357 x10(3)/mcL RDWSD 47.4 (H) 37.0 - 46.0 fL RDWCV 14.2 (H) 11.5 - 14.1 % MPV 9.8 7.6 - 12.9 fL nRBC % Auto 0.0 % nRBC Abs Auto 0.000 0.000 - 0.000 x10(3)/mcL Differential, Automated Result Value Ref Range Neutrophils % 76.8 % Neutr Abs (ANC) 10.45 (H) 1.70 - 6.10 x10(3)/mcL Lymphocytes % 15.1 % Lymphocytes Abs 2.1 0.9 - 3.2 x10(3)/mcL Monocytes % 7.2 % Monocyte Abs 1.0 (H) 0.3 - 0.9 x10(3)/mcL Eosinophils % 0.1 % Eosinophils Abs 0.0 0.0 - 0.4 x10(3)/mcL Basophils % 0.4 % Basophils Abs 0.0 0.0 - 0.1 x10(3)/mcL Immature Gran % 0.40 % Gaby Gran Abs 0.06 (H) 0.00 - 0.04 x10(3)/mcL Microbiology: Microbiology Results (Last 30 days) Procedure Component Value Units Date/Time Lower Respiratory Culture Sputum Expectorated [[id number]] (Abnormal) Collected: 07/01/18 0341 Lab Status: Final result Specimen: Sputum Expectorated Updated: 07/03/18 0758 Lower Respiratory Culture -- [place] albicans Rare mixed bacterial morphotypes suggestive of normal upper respiratory germaine Gram Stain -- Few Neutrophils seen Few squamous epithelial cells seen Few Yeast seen Rare mixed bacterial morphotypes suggestive of normal upper respiratory germaine Legionella culture Sputum Expectorated [[id number]] Collected: 07/01/18 0341 Lab Status: Preliminary result Specimen: Sputum Expectorated Updated: 07/02/18 0842 Legionella Culture No Legionella isolated to date Blood culture [[id number]] Collected: 06/30/18 1300 Lab Status: Final result Specimen: Blood from Wrist, Right Updated: 07/05/18 1501 Blood Culture No growth at 5 days. Blood culture [[id number]] Collected: 06/30/18 1300 Lab Status: Final result Specimen: Blood from Wrist, Left Updated: 07/05/18 1501 Blood Culture No growth at 5 days. Urine culture Indwelling Catheter Urine [[id number]] Collected: 06/26/18 1226 Lab Status: Final result Specimen: Urine Updated: 06/27/18 0751 Urine Culture No growth (Less than 1,000 cfu/ml). Legionella Urinary Antigen [[id number]] Collected: 06/26/18 1225 Lab Status: Final result Specimen: Urine Updated: 06/26/18 1459 Legionella Urinary Antigen Negative Comment: A negative Legionella Urinary Antigen by EIA suggests no recent or current infection with L. pneumophila Serogroup 1. Antigen may not be present in urine in early infection, and the level of antigen present in the urine may be below the detection limit of the test. Sensitivity: 95% Specificity 95%. Respiratory Panel PCR [[id number]] (Abnormal) Collected: 06/26/18 1140 Lab Status: Final result Specimen: Nasopharyngeal Swab Updated: 06/26/18 1314 Resp Panel Source PAPER BUNDLER Swab Resp Panel PCR Positive Comment: Respiratory Panels are performed on the [employer], using multiplexed PCR nucleic acid detection. Negative results do not preclude respiratory infection and should not be used as the sole basis for diagnosis, treatment or other management decisions. Adenovirus Not Detected Coronavirus HKU1 Not Detected Coronavirus NL63 Not Detected Coronavirus 229E Not Detected Coronavirus OC43 Not Detected Human Metapneumovirus Not Detected Human Rhino/Enterovirus Not Detected Influenza A Detected Influenza A H1 Not Detected Influenza A H1-2009 Detected Influenza A H3 Not Detected Influenza B Not Detected Parainfluenza 1 Not Detected Parainfluenza 2 Not Detected Parainfluenza 3 Not Detected Parainfluenza 4 Not Detected Respiratory Syncytial Virus Not Detected Chlamydophila pneumoniae Not Detected Mycoplasma pneumoniae Not Detected Blood culture [[id number]] Collected: 06/26/18 1105 Lab Status: Final result Specimen: Blood from Forearm, Right Updated: 07/01/18 1501 Blood Culture No growth at 5 days. Radiology: XR Chest 07/03/2018: Worsening pulmonary opacification. Unchanged appearance of the support apparatus. XR Chest 06/30/2018: 1. Appropriately positioned right IJ central venous catheter. 2. No interval change in lung findings. XR Chest 06/30/2018: Patchy infiltrates in both lungs distant with pneumonia, ARDS, and/or edema are not significantly changed. Small right pleural effusion. XR Chest 06/28/2018: 1. Appropriately positioned endotracheal tube. 2. Slight interval improvement in bilateral patchy airspace opacities consistent with pneumonia. 3. Distal tip of enteric tube within the distal esophagus, recommend advancing it by about 15 cm. XR Chest 06/26/2018: Extensive bilateral pulmonary infiltrates similar to the studies of earlier the same day Assessment: 58 y/o female with pmhx anxiety/depression admitted with acute hypoxic respiratory failure in the setting of ARDS 2/2 influenza A. She is s/p ICU management for ARDS including intubation and prone positioning. She is now stable for transfer to the general medical service. Plan: # Hypoxic Respiratory Failure 2/2 ARDS # ARDS 2/2 Influenza A # Influenza A - S/p 5 days tamiflu (end date 07/02) for influenza A - Legionella antibody positive at [facility] however legionella urinary antigen and legionella respiratory culture [place] [facility] and so azithromycin was stopped (treated from 06/30-07/02) - Continue PRN duo-nebs - Weaning O2 as tolerated # Dysphagia - Dysphagia soft diet - Speech therapy following # Urinary Retention - S/p gonzalez catheter removal - Renal function stable - Send urinalysis - Will order bladder scan protocol # Anxiety # Depression - Continue sertraline 100 mg PO daily ?? Admit to hospital medicine ?? Physical Therapy referral ?? DVT Prophylaxis - heparin ?? If currently a smoker - advised about smoking cessation and will provide smoking cessation material and support. ?? Pneumovax and Influenza Immunizations given as needed. ?? Discussed Advanced Directives and Code Status. The patient wishesto be Full Code. A copy of this document will be sent to the patient's Primary Care Physician and/or Referring Physician. CAROL ANN INGRAM MD 07/07/2018 * Wendy Alan, STATION MASTER - 06/26/2018 2:09 PM EST Critical Care Admission Note Yara Lawton is a 58 y.o. female with a PMH significant for Anxiety Disorder, Former Smoker, Depression, LBBB, and Migraines, who presents in transfer from [facility] with acute hypoxic respiratory failure secondary to influenza A. HPI: Ms. Lawton reports that she began feeling unwell on Wednesday of this past week, she developed a productive cough and was experiencing chills and rigors. She then developed progressive shortness of breath, which is what caused her to seek medical evaluation at [facility] this morning. On arrival there she was noted to have a room air saturation in the 70s, was tachycardic and febrile [38.4C]. She was placed on 100% FiO2 via NRBM with improvement in her saturations to the mid-90s. A Chest XR and CT Chest both revealed bilateral multifocal pneumonia and her Flu swab was positive for Influenza A. Her initial ABG on the NRBM was: 7.52// on 100%. Pertinent Laboratory Data: -Flu A positive -WBC: 10.5 -Creatinine: 1.05 -Sodium: 126 -AST/ALT: 38/18 -Troponin I: <0.02 [ULN 0.06] -Lactate: 1.7 -ProBNP: 710 -ABG at 0700: 7.52/33//27 on 100% NRBM Care at [facility]: -Vancomycin 1.5gms IV at 0730 -LR 1L IV -Azithromycin 500mg IV at 0730 -Ceftriaxone 2gms IV at 0730 -Tamiflu 75mg PO at 0800 Pertinent Imaging: -CT Chest without contrast: bilateral multifocal patchy infiltrates suggestive of multifocal pneumonia. -Chest XR: bilateral patchy infiltrates. She arrived [place] [facility] in no acute respiratory distress, but saturating in the low 90s on 100% FiO2 via HFNC. She was placed on BiPAP with immediate improvement in her SpO2 and her O2 was weaned from 100%-->70%-->55% within an hour. Outpatient medications: No current facility-administered medications on file prior to encounter. Current Outpatient Medications on File Prior to Encounter Medication Sig Dispense Refill ??? ketoconazole (NIZORAL) 2 % Cream Apply to affected areas on the face daily until clear and then1-2 times weekly 60 g 3 ??? SERTRALINE HCL (ZOLOFT ORAL) ??? clonAZEpam (KLONOPIN) 0.25 mg disintegrating tablet Allergies Allergen Reactions ??? Citalopram Hydrobromide ??? Paroxetine Hcl Last value Range last 24 hrs Temperature Temp: 36.8 ??C (98.2 ??F) Temp: [36.8 ??C (98.2 ??F)] Heart Rate Heart Rate: 85 Heart Rate: [84-90] Blood Pressure BP: 101/64 BP: (94-107)/(58-67) Respiratory Rate Resp: 29 Resp: [20-29] SpO2 SpO2: 96 % SpO2: [94 %-98 %] Art BP BP (Arterial Line): -- Ventilator Settings: BiPAP per protocol Physical Exam: General: Appears stated age, sitting up in bed in NAD with no complaints. HEENT: PERRL. Trachea midline. No JVD. Sclera anicteric. Normocephalic, atraumatic. No cervical spine tenderness. Neuro: AAOx3. GCS 15. No focal deficits noted. VALLES, equal strength throughout. Face is symmetric, tongue is midline on protrusion. Speech is clear and appropriate. Pulmonary: Scattered rhonchi throughout. Equal chest wall expansion. No subcutaneous air or crepitus noted. Cardiovascular: S1S2. No M/R/G. Abdomen: Soft, flat, non-tender. +BS throughout. : Continent of clear yellow urine. Extremities: No edema. Pulses palpable throughout. Skin: Grossly intact. Labs: Last 3 wbc, hgb, hct plt Recent Labs 06/26/18 1105 WBC 9.0 HGB 10.9* HCT 32.0* PLATELET 185 Last 3 Lytes Recent Labs 06/26/18 1105 NA 128* K 4.0 CL 89* CO2 24 BUN 14 CREATININE 0.77 Last 3 LFTs Recent Labs 06/26/18 1105 AST 34* ALT 13 ALKPHOS 74 BILITOT 0.4 BILIDIR 0.1 Last Ca, Mg, Phos Recent Labs 06/26/18 1105 CALCIUM 8.3* PHOS 4.2 Last 3 Coags Recent Labs 06/26/18 1105 PT 16.3* INR 1.4 Last 3 ProBNP, Trop, CK No results for input(s): CK, TROPONINT, PROBNP in the last 168 hours. Microbiology: Blood, urine, sputum, legionella and full viral DFA pending. ECG: known LBBB Imaging: See above for Chest XR and CT Chest from [facility]. Chest XR pending here. Assessment: This is a 58 year old female with the above past medical history who presents in transfer from [facility] with hypoxic respiratory failure with a nasal swab that is positive for influenza A. Her imaging reveals a pretty significant bilateral multilobar pneumonia and she is currently requiringBiPAP. Plan: Neuro: Depression history ?? Continue home Sertraline ?? Neuro checks per unit routine ?? Avoid deliriogenic medications as able. ?? Maintain good day-night cycles. Pulm: Hypoxic respiratory failure, Influenza A ?? Continue PRN BiPAP and wean FiO2 as able. ?? Plan to trial periods off BiPAP to HFNC ?? Will check legionella and full viral panel. ?? Avoiding steroids if able in the setting of Flu and no underlying lung disease. No evidence of pneumosepsis. ?? Covering her with: Tamiflu, Ceftriaxone and Azithromycin ?? Sputum culture if able to produce a sample. ?? Full code and she would be amenable to intubation if needed. ?? Droplet precautions for duration of illness. ?? Repeat ABG currently pending. CV: No acute issues ?? No current indication for AL or CVC ?? Q1 hour vital signs GI: No acute issues ?? NPO while requiring continuous BiPAP ?? Pepcid for GI prophylaxis Renal/FEK: Hyponatremia ?? Repeat lytes pending ?? Monitor and replete lytes as indicated ?? Daily BMP ?? Avoid nephrotoxic agents as able. Hematology: No acute issues. ?? Heparin SQ for DVT prophylaxis. ID: CAP, Influenza ?? Tamiflu, Ceftriaxone and Azithromycin Endocrine: No acute issues ?? SSI Other prophylaxis: Heparin SQ for DVT prophylaxis Prpcid for GI prophylaxis HOB > 30 Chlorhexidine mouth care Mepliex to sacrum PT/OT: pending Lines/Tubes/Drains: PIVs Consults: None at this time Decision Making: Self Code Status: FULL Disposition: ICU Wendy Alan APRN June 26, 2018 Critical Care Green Team (pager [phone]) Dr. Arauz is the attending of record for this admission documented in this encounter Procedure Notes * Wyatt Juárez DO - 06/30/2018 6:10 PM ESTProcedure(s): PRO INSERT NON- TUNNELED CENTRAL VENOUS CATH, AGE 5 OR OLDER Pre-Procedure Diagnose(s): Acute respiratory distress syndrome (ARDS) Post-Procedure Diagnose(s): Acute respiratory distress syndrome (ARDS) Central Line Placement Procedure Note Items highlighted in red are State Reported items for central line compliance documentation. Procedure Diagnosis: Acute Respiratory Distress Syndrome Risks and Benefits reviewed: yes. Informed Consent obtained: yes Reason for insertion: new central line Time out performed and documented: yes Hand Hygiene performed: Yes Skin prepped with: chlorhexidine Skin prep agent completely dry at time of first puncture: yes 0 ml of 1% lidocaine was used for local anesthesia. Sterile drape: large sterile drape used Mask/eye shield: mask/eye shield used Large sterile gown: large sterile gown used Sterile gloves: sterile gloves used Cap worn: cap worn Ultrasound guidance used for insertion: Yes Kit type used: An 18 Ga. X 2.5 inch needle was placed in vein after blood return identified. Guidedby a 0.032 inch diameter guide wire, a 7 Fr., 3 lumen Catheter 16 cm in length antibiotic impregnated catheter was inserted using the Seldinger Technique. Catheter type: CVL Tunneled/Non Tunneled: non tunneled Insertion Site: jugular (internal) Insertion Side: right Number of attempts: 1 Insertion successful: Yes Catheter sutured at the skin at: 16 cm . Sterile dressing: Chlorhexidine Tegaderm Findings: Patient tolerated procedure well., Blood returned appropriately. Complications: No Complications. Chest X-ray ordered: yes Patient location at time of insertion: [address] Procedure Comments: Central Venous catheter, venous pressure transduced. Wyatt Juárez DO Associated attestation - Seb Le Jr., MD - 06/30/2018 8:57 PM EST ICU Attending I was present during this procedure. --Brina Le MD * Vipin Flower MD - 06/28/2018 3:37 PM ESTAssociated Order(s): INSERT ARTERIAL LINE Pre-Procedure Diagnose(s): Acute respiratory distress syndrome (ARDS) Post-Procedure Diagnose(s): Acute respiratory distress syndrome (ARDS) Arterial Line Placement Procedure Note Indication for Procedure: Arterial line was placed for invasive blood pressure monitoring and arterial blood gases. Procedure Diagnosis: ARDS Location of Procedure: Critical Care. Risks and Benefits: The risks and benefits of this procedure were reviewed and informed consent wasobtained. Time Out: Prior to the start of the procedure, the patient's identity, intended procedure, site/side, correct patient positioning and presence of the site vipin was confirmed as applicable. The medical history and chart were reviewed to rule out potential contraindications to the planned procedure. Hand Hygiene: The imaging assistant did perform hand hygiene prior to arterial line insertion. Procedure Prep: Sterile draping was applied. Skin was prepped with chlorhexidine. Procedure Details: A 20 gauge, 2 inch catheter was placed in the right radial artery and secured with steri-strips. Tegaderm was applied.. There was 1 attempt. Findings: There were no procedure complications. Blood was drawn with ease. Good wave form. Procedure Comments: none * Vipin Flower MD - 06/28/2018 3:15 PM EST Intubation Procedure Note Reason for Intubation: ?? Hypoxemia. Procedure Diagnosis: hypoxic respiratory failure, ARDS Location of Procedure: [facility]. Risks and Benefits: The risks and benefits of this procedure were reviewed and informed consent was obtained obtained. Time Out: Prior to the start of the procedure, the patient's identity, intended procedure, site/side, correct patient positioning and presence of the site vipin was confirmed as applicable. The medical history and chart were reviewed to rule out potential contraindications to the planned procedure. Intubation Assessment: ?? Full stomach Additional Intubation Assessment: Preoxygenation was administered. Cricoid pressure was applied. Laryngoscope Blade and Size: Mac blade, Size 3 The endotracheal tube size was 8 mm. The tube was cuffed. Common Adjuvant Equipment: A stylet was used. An oral airway was not used. A nasal airway was not used. Additional Adjuvant Equipment: Type scope: C MAC [place] Intubation Catheter: no Combitube:no Intubating Laryngeal Mask Airway:none Laryngeal Mask Airway: none Other: Intubation Method: other: video laryngoscopy IV Medications: ?? 130 mg Ketamine ?? 50 mg Propofol ?? 1 mg Midazolam Other Medications: ?? Insertion Attempts: There was 1 attempt. Visualization of Vocal Chords: A Grade II view of the vocal cords was observed. Confirmation of Tube Placement: ?? Chest X-ray ordered ?? end tidal CO2 ?? bilateral breath sounds ?? visualization of trachea Status Post Intubation: ?? The patient was hemodynamically stable. ?? The procedure was uncomplicated and atraumatic. Tube secured (at lip or nares): 22 cm Other post intubation status comments: Pt tolerated the procedure well without issue. Pt had an anterior airway with partial visualization of the cords with cricoid pressure. Dr. Flower was presentfor the entirety of the procedure. Dee Dee Schwab, DO 06/28/2018 I was present for this procedure. MNF documented in this encounter Miscellaneous Notes * Plan of Care - Cherelle Becerril RN - 07/13/2018 4:12 PM EST Problem: Patient Care Overview Goal: Plan of Care Review Outcome: Ongoing (Interventions Implemented as Appropriate) 07/13/18 0259 07/13/18 0900 Plan of Care Review Progress progress toward functional goals as expected -- Coping/Psychosocial Plan Of Care Reviewed With -- patient OUTCOME EVALUATION NOTE: OUTCOME SUMMARY: Pt is alert and oriented x4. VSS. Physical assessment as documented. Able to voice needs and concerns. Pt ambulated with PT today around the unit on RA. Pt remained above 90% on RA with activity but,HR increased to the 130's. When pt rested after ambulation, pt's SpO2 dropped to 85% on RA for about 15 seconds, but her HR dropped back down to 100's. Pt has intermittently required O2 throughout the day at rest. Will continue to monitor. PLAN MOVING FORWARD: Monitor VS/Labs Monitor I &O Encourage ambulation Monitor O2 requirement INDIVIDUALIZED FALL PREVENTION INTERVENTIONS: Patient-specific fall risk factors per assessment: [current deficits]: IV, masimo, weakness, diagnosis, oxygen Assistance [level of assistance required for transfers and ambulation]: Independent, SBA outside ofroom Supervision [direct monitoring required during toileting and ADLs]: Eyes on Surveillance [continuous indirect monitoring]: Hourly rounding Patient-specific fall prevention interventions for sensory deficits provided, if applicable: [X] Yes, glasses at bedside CPG GOAL OUTCOME EVALUATION: * Plan of Care - Rene Kevin, PT - 07/13/2018 12:25 PM EST Physical Therapy Treatment Treatment Number PT: 5 Pertinent History of Current Problem: Pt is a 58 yo female with a h/o depression, anxiety, former smoker, Migraines and a LBBB who was transferred from an OSH, 06/26/18, 2/2 Bilateral PNA and influenza A. She developed respiratory failure with hypoxia and required intubation. Pt was in ICU for a period of time issues with ARDS, dysphagia, and weakness. Extubated on 07/06/18; transferred from the ICU to [address] [place] [address] unit on 07/07/18; is working on weaning O2. Precautions/Restrictions: fall Precautions Comments: activity as tolerated. Tachycardic with activity. Assessment: Patient seen this late morning to early afternoon on [address] [place] [address] unit for functional mobility and d/c planning. Pt is making gains in her mobility and function, but remains deconditioned. She maintained O2 sats with walking on RA, but desated briefly to 85-88% on RA during recovery, rebounding in less than 30 seconds, however HR went up to 135-139 with activity and it took her up to 2 mi nutes to recover with HRs in the lower 100's; and she does become fatigued and SOB with activity attimes. RN aware of her status at end of session. Patient desires to return home if possible, but she does live alone. She will need to be independent with mobility household distances to allow for a safe d/c home. Will continue PT to safely progress her mobility and function while she remains in-house. Please see the flow sheet below for patient details and mobility. Pt would benefit from ongoingphysical therapy interventions. Staff Mobility Recommendations: supervision with mobility with cane or walker longer distances, andsupervision without a device in the room. Monitor vitals, encourage more walks out of the room daily. Anticipated Discharge Disposition: home with assist, home with home health, jail facility(likely home with home PT and OT, pending progress; ? Rehab. ) RENE KEVIN, PT Pager: [phone] Inpatient Physical Therapy 07/13/18 1222 Rehab Evaluation Document Type therapy note (daily note) Total Evaluation Minutes, Physical Therapy 26 (functional mobility. ) Patient Effort good Symptoms Noted During/After Treatment shortness of breath;significant change in vital signs (HR up to 135-139 w/activity. O2 drop during recovering. 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 My brother lives 4 miles away, he will check on me. Today is one of my better days. General Observations of Patient Pt resting in the bed when PT arrived to the [place] unit, easily arose and agreeable to work with PT. Left in recliner waiting for lunch with all needs in reach. Pertinent History of Current Problem Pt is a 58 yo female with a h/o depression, anxiety, former smoker, Migraines and a LBBB who was transferred from an OSH, 06/26/18, 2/2 Bilateral PNA and influenzaA. She developed respiratory failure with hypoxia and required intubation. Pt was in ICU for a period of time issues with ARDS, dysphagia, and weakness. Extubated on 07/06/18; transferred from the ICU to [address] [place] [address] unit on 07/07/18; is working on weaning O2. Precautions/Restrictions fall Precautions Comments activity as tolerated. Tachycardic with activity. Treatment Number PT 5 Living Environment Living Environment Comment Lives alone in a one level home, 3 stairs with a rail to enter. Reports family lives 4 miles away and will check in. 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 She walked without a device, was driving, and enjoys walking and gardening. Vital Signs Heart Rate 96 (135-139 w/activity, recovers with rest to 110's in 1 minute.) SpO2 94 % (walk RA 92-100%,drop 85-88 brief during recovery- 20 sec or<) O2 Device RA Cognitive Assessment/Intervention Additional Documentation (pleasant, friendly, alert, cooperative. ) Pain Scale/Rating Pain Assessment Scale Word (verbal rating pain scale) Pain Level 0 ROM (Range of Motion) General Range of Motion Detail AROM of BUes and BLEs Was WFLs. Mobility Assessment/Training Additional Documentation Bed Mobility Assessment/Treatment (Group);Gait Assessment/Treatment (Group);Stairs Assessment/Treatment (Group);Transfer Assessment/Treatment (Group) Bed Mobility Assessment/Treatment Assistive Device (Bed Mobility) (HOB elevated) Obiekt-iy-Olw Wetzel (Bed Mobility) conditional independence Jyw-fv-Kfiusw Wetzel (Bed Mobility) conditional independence Comment (Bed Mobility) HOB elevated, managed lines and linens without issues. Transfer Assessment/Treatment Wetzel (Sit-Stand Transfers) supervision required;conditional independence Wetzel (Stand-Sit Transfers) supervision required;conditional independence Bzk-Uolsw-Dmm Assistive Device (Transfers) rolling walker (and no device. ) Wetzel (Toilet Transfers) supervision required (toilet is low in [place] unit, no hand support) Comment (Transfers) occ sway when first standing, but no loss of balance, recommend supervision forsafety with transfers at this time. Gait Assessment/Treatment Wetzel (Gait) contact guard assist;supervision required Assistive Device (Gait) straight cane;rolling walker (no device) Distance in Feet (Gait) 70, 30, 40, 20 Gait Pattern Analysis (step to) Deviations (Gait) donald decreased;step length decreased Safety Issues (Gait) balance decreased during turns;step length decreased Impairments (Gait) balance impaired;strength decreased Comment (Gait) started without a device in room to hallway, increased sway in open space, given cane to use- contact guard to supervision with cane and cues for direction. Sat to rest b/w distances walked. HR increased with activity and some SOB, recovered within 20 seconds to 2 minutes. Educated to use walker or cane for longer distances, and to have supervision with all gait activities. Issued a cane. Stairs Assessment/Treatment Number of Stairs (Stairs) 3 Handrail Location (Stairs) left side (ascending) Wetzel (Stairs) contact guard assist Assistive Device (Stairs) straight cane Technique (Stairs) [id number] (descending);[id number]-rk-[id number] (ascending) Motor Skills/Interventions Additional Documentation Therapeutic Exercise (Group) Therapeutic Exercise Comment (Therapeutic Exercise) IS use to [id number] with cues, deep breathing, reviewed AROM of BUEsand BLEs and repositioning. Educated to walk more daily with nurse staff community health out of room with assistance. Also educated on pacing, and resting as needed. Bed Mobility Goal Bed Mobility Goal, Date Established 07/05/18 Bed Mobility Goal, Time to Achieve by discharge Bed Mobility Goal, Activity Type supine to sit/sit to supine Bed Mobility Goal, Wetzel Level independent Bed Mobility Goal, Outcome Achieved goal revised Gait Training Goal Gait Training Goal, Date Established 07/05/18 Gait Training Goal, Time to Achieve by discharge Gait Training Goal, Wetzel Level conditional independence Gait Training Goal, Assist Device (no device, or least restrictive device. ) Gait Training Goal, Distance to Achieve 100' with VSS Gait Training Goal, Additional Goal Up and down 3 stairs with a railing and cane with supervision, VSS; to allow for a safe return home with support. Gait Training Goal, Outcome goal revised Transfer Training Goal Transfer Training Goal, Date Established 07/05/18 Transfer Training Goal, Time to Achieve 30 days Transfer Training Goal, Activity Type [id number]-fk-[id number] Transfer Train Goal, Wetzel Level conditional independence Transfer Training Goal, Assist Device (least restrictive device.) Transfer Training Goal, Outcome goal revised Physical Therapy Goal PT Goal, Date Established 07/05/18 PT Goal, Time to Achieve by discharge PT Goal, Activity Type Pt able to sit EOB without support for light functional activity. PT Goal, Additional Goal Pt able to clear own airways effectively and using IS >1500 ml PT Goal, Outcome goal revised Clinical Impression Therapy Frequency 2-4 times/wk Anticipated Equipment Needs at Discharge (given cane 07/13/18) Anticipated Discharge Disposition home with assist;home with home health;jail facility (likely home with home PT and OT, pending progress; ? Rehab. ) * Plan of Care - Haydee Guardado RN - 07/13/2018 3:02 AM EST Problem: Patient Care Overview Goal: Plan of Care Review Outcome: Ongoing (Interventions Implemented as Appropriate) 07/13/18 0259 Plan of Care Review Progress progress toward functional goals as expected Coping/Psychosocial Plan Of Care Reviewed With patient OUTCOME EVALUATION NOTE: OUTCOME SUMMARY: A/OX4. Calm and cooperative. Appeared to rest comfortably between care. Denied pain. VSS. Desat to 87% on RA. Continued on 1L SaO2 mid 90s. Able to turn/reposition self in bed. Will cont to monitor and report w/ changes. PLAN MOVING FORWARD: Monitor respiratory status. Mobilize. D/C planning. INDIVIDUALIZED FALL PREVENTION INTERVENTIONS: Patient-specific fall risk factors per assessment: [current deficits]: Lines/tubing. Unfamiliar environment. Assistance [level of assistance required for transfers and ambulation]: Independent/SBA. Supervision [direct monitoring required during toileting and ADLs]: Able to make needs known. Surveillance [continuous indirect monitoring]: Purposeful rounding, room near nurses' station. Patient-specific fall prevention interventions for sensory deficits provided, if applicable: [X] N/A CPG GOAL OUTCOME EVALUATION: * Plan of Care - Kenya Owens RN - 07/12/2018 6:01 PM EST Problem: Patient Care Overview Goal: Plan of Care Review Outcome: Ongoing (Interventions Implemented as Appropriate) 07/11/18 1139 07/12/18 1755 Plan of Care Review Progress progress toward functional goals as expected -- Coping/Psychosocial Plan Of Care Reviewed With -- patient OUTCOME EVALUATION NOTE: OUTCOME SUMMARY: Pt alert and oriented, cooperative with care. VSS, pt denies any new or worsening SOB/fatigue or pain. Pt ambulated around the unit with mask. Midline dressing changed per vascular access. Pt's son was updated with plan of care. Pt rested in between care. PLAN MOVING FORWARD: Discharge planning INDIVIDUALIZED FALL PREVENTION INTERVENTIONS: Patient-specific fall risk factors per assessment: [current deficits]: Increased SOB, tubing/cords,weakness Assistance [level of assistance required for transfers and ambulation]: Independent/SBA Supervision [direct monitoring required during toileting and ADLs]: Eyes on Surveillance [continuous indirect monitoring]: Purposeful rounding, environmental modification Patient-specific fall prevention interventions for sensory deficits provided, if applicable: [X] No CPG GOAL OUTCOME EVALUATION: Goal: Individualization & Mutuality Outcome: Ongoing (Interventions Implemented as Appropriate) 07/12/181754 Individualization Patient Specific Preferences Likes lele Patient Specific Goals Discharge Patient Specific Interventions Explained plan of care with pt Goal: Fall Prevention-Safe Patient Handling Outcome: Ongoing (Interventions Implemented as Appropriate) 07/12/1882407/12/181754 Daily Care Interventions Self-Care Promotion -- independence encouraged Lubin Fall Risk History of Falling 0 -- Secondary Diagnosis 15 -- Ambulatory Aids 15 -- Intravenous Therapy/Heparin/Saline Lock 20 -- Gait/Transferring 10 -- Mental Status 0 -- Score 60 -- OTHER Lubin Fall Risk High -- Restraint Interventions Safety Promotion/Fall Prevention activity supervised;fall prevention program maintained;nonskid shoes/slippers when out of bed;safety round/check completed -- Positioning Body Position independent -- Activity Activity Type activity adjusted per tolerance -- Activity Assistance Provided assistance, stand-by -- Assistive Device Utilized front-wheel walker -- Goal: Infection Control Outcome: Ongoing (Interventions Implemented as Appropriate) 07/12/18824 Safety Interventions Isolation Precautions droplet precautions maintained Infection Prevention environmental surveillance performed;personal protective equipment utilized;rest/sleep promoted;single patient room provided Coping Strategies Supportive Measures active listening utilized;self-care encouraged;verbalization of feelings encouraged * Plan of Care - Ирина Costello - 07/11/2018 12:36 PM EST Problem: Patient Care Overview Goal: Plan of Care Review OUTCOME EVALUATION NOTE: OUTCOME SUMMARY: Pt A/Ox4. Continues on 1-3 Lpm NC to maintain sats. Coarse lung sounds. Denies SOB/CP. Ambulating with walker, ambulated in peralta with PT. Seen by speech. Regular diet and tolerating. Denies pain. PLAN MOVING FORWARD: Continue to monitor INDIVIDUALIZED FALL PREVENTION INTERVENTIONS: Patient-specific fall risk factors per assessment: [current deficits]: Generalized weakness Assistance [level of assistance required for transfers and ambulation]: stand by Supervision [direct monitoring required during toileting and ADLs]: Eyes on Surveillance [continuous indirect monitoring]: Pulse ox, call lee in reach, hourly rounding Patient-specific fall prevention interventions for sensory deficits provided, if applicable: [X] Yes CPG GOAL OUTCOME EVALUATION: Safety maintained * Plan of Care - Shruti Gr, SAP PAYROLL CONSULTANT - 07/11/2018 11:45 AM EST Speech-Language Pathology Document Type: therapy note (daily note) Pertinent History of Current Problem: 58 y.o. woman with ARDS from influenza pneumonia Assessment: Pt seen for treatment of dysphagia. RN reported pt tolerating current dysphagia soft diet and thin liquids with no difficulties. Additionally, pizza box noted at bedside and pt reports eating and tolerating pizza and wings with no difficulties. Pt completed trials of thin liquids and solids. Pt demonstrated grossly intact swallow abilities. Pt exhibited no s/sx of aspiration at this time. Recommend advance to regular textured diet and continue thin liquids at this time. Speech Pathology signing-off, please re-consult if swallow concerns arise. Please see flow sheet data below for specific details, POC and goals. Recommendations SAP PAYROLL CONSULTANT Diet Recommendation: thin liquids, regular solid Recommended Feeding/Eating Techniques: maintain upright posture during/after eating for 30 mins, small sips/bites Therapy Frequency: (no further skilled swallow services needed at this time) SHRUTI GR MA, CCC-SAP PAYROLL CONSULTANT Inpatient Speech Pathologist Pager# [phone] 07/11/18 1130 Rehab Evaluation Document Type therapy note (daily note) Total Evaluation Minutes, Speech Language Pathology 15 Patient Effort good Symptoms Noted During/After Treatment none General Information Patient Profile Review yes Patient/Family/Caregiver Comments/Observations Pt reports eating pizza over the weekend w/ no difficulties. General Observations of Patient Sitting up in chair, alert, oriented, pleasant, cooperative Pertinent History of Current Problem 58 y.o. woman with ARDS from influenza pneumonia Precautions/Restrictions fall;oxygen therapy device and L/min (3L NC) Current Diet Limitations thin liquids;semi-solid Hearing Precautions/Limitations WFL Pain Assessment Additional Documentation (denies pain) Vision Assessment/Intervention Additional Documentation (+ glasses) Oral Motor Structure/Functional Assess Dentition (Oral Motor Assessment) missing teeth in some areas Mucosal Quality (Oral Motor Assessment) good Volitional swallow (Oral Motor Assessment) no issues initiating volitional swallow Volitional cough (Oral Motor Assessment) no issues initiating volitional cough Non Instrumental/Clinical Swallow Exam Additional Documentation NIS Thin Liquid Trial (Group);NIS Solid Trial (Group) NIS Thin Liquid Trial Thin Liquid, Mode of Presentation (Nis) self-fed;straw Thin Liquid, Volume Presented (mL) (Nis) patient controlled volumes Thin Liquid, Oral Phase Results (Nis) intact oral phase without signs of dysfunction Thin Liquid, Pharyngeal Phase Results (Nis) safe swallow, no signs/symptoms of aspiration or penetration Thin Liquid, Pharyngeal Phase, Cervical Auscultation (Nis) normal sounds/flow NIS Solid Trial Solid Food, Mode of Presentation (Nis) self-fed Solid Food, Volume Presented (mL) (Nis) patient controlled volumes Solid Food, Oral Phase Results (Nis) intact oral phase without signs of dysfunction Solid Food, Pharyngeal Phase Results (Nis) safe swallow, no signs/symptoms of aspiration or penetration Solid Food, Pharyngeal Phase, Cervical Auscultation (Nis) normal sounds/flow Plan of Care Review Plan Of Care Reviewed With patient (RN; Hospital Medicine team paged) Progress progress toward functional goals as expected Speech Language Pathology Goal Types SAP PAYROLL CONSULTANT Goal Types Dysphagia Goal (Group) Dysphagia Goal Dysphagia Goal, Date Established 07/07/18 Oral Nutritional Level Goal safely tolerates/maintains adequate oral nutrition;safely tolerates recommended diet texture;safely tolerates recommended liquid viscosity;no signs/symptoms of aspiration present Dysphagia Goal, Outcome goal met Clinical Impression SAP PAYROLL CONSULTANT Swallowing Diagnosis (WFL) Rehab Potential/Prognosis, Swallowing good, to achieve stated therapy goals Therapy Frequency (no further skilled swallow services needed at this time) SAP PAYROLL CONSULTANT Diet Recommendation thin liquids;regular solid Recommended Feeding/Eating Techniques maintain upright posture during/after eating for 30 mins;small sips/bites Monitor for Signs of Aspiration cough;gurgly voice;throat clearing * Plan of Care - Afia Duarte OTA - 07/11/2018 11:19 AM EST Occupational Therapy Treatment Note Treatment Number OT: 2 Pertinent History of Current Problem: Pt is a 58 yo female with a h/o depression, anxiety, former smoker, Migraines and a LBBB who was transferred from an OSH, 06/26/18, 2/2 Bilateral PNA and influenza A. She developed respiratory failure with hypoxia and required intubation. Pt with ARDS and was proned in ICU. Pt is improving after 10 days in ICU. Hyponatremia resolved. PT and OT consulted. RT isworking on weaning ventilator, 07/05/18. Pt transferred to the medical floor. Precautions/Restrictions: fall, oxygen therapy device and L/min(3L 02) Assessment: Pt seen for skilled OT interventions. Pt pleasant and motivated to work with therapy. Pt able to perform grooming tasks at sink with set up/supervision then mobilize in hallway on 3 L02 saturation ~92%. Increased time and effort required 2' decreased functional strength and endurance. Pt is quite far from her independent baseline and will highly benefit from inpatient rehab stay once medically ready for dc. Pt will benefit from ongoing therapeutic interventions to achieve pt's and therapy goals. Please refer to associated flowsheet data listed below for treatment session details. 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 She developed respiratory failure with hypoxia and required intubation. Pt with ARDS and was proned in ICU. Pt is improving after 10 days in ICU. Hyponatremia resolved. PT and OT consulted. RT is working on weaning ventilator, 07/05/18. Pt transferred to the medical floor. Hearing Precautions/Limitations WFL Precautions/Restrictions fall;oxygen therapy device and L/min (3L 02) Limitations/Impairments safety/cognitive Treatment Number OT 2 Cognitive Assessment Interventions Behavior/Mood Observations (Cognitive) alert;cooperative Orientation Status (Cognitive) oriented x 4 Attention (Cognitive) WNL/WFL Follows Commands/Answers Questions (Cognitive) able to follow multi-step instructions Cognitive Assessment/Interventions Comment improving Pain Scale/Rating Pain Assessment Scale Numbers (Numeric Rating Pain Scale) Pain Level 0 Pain Assessment Additional Documentation (did not co pain) Bed Mobility Assessment/Treatment Impairments (Bed Mobility) strength decreased Scoot/Bridge Wetzel (Bed Mobility) (HOB elevated) Assistive Device (Bed Mobility) bed rails Comment (Bed Mobility) addtional time and increased effort [id number]-[id number] Wetzel (Bed Mobility) supervision required Transfer Assessment/Treatment Wetzel (Sit-Stand Transfers) contact guard assist;supervision required Wetzel (Stand-Sit Transfers) supervision required;verbal cues required Bam-Idkia-Hnf Assistive Device (Transfers) rolling walker Impairments (Transfers) balance impaired;strength decreased Comment (Transfers) cga when pt first stood, once standing pt steady with no LOB noted Grooming Assessment/Training Position (Grooming) standing Wetzel Level (Grooming) set up required;supervision required Impairments (Grooming) strength decreased Comment (Grooming) stood at sink to brush teeth and wash face Functional Endurance Functional Endurance Detail pt tolerated mobilizing functional household distances on 3L 02, satingat ~92%, pt moved slow and steady, good pacing Plan of Care Review Plan Of Care Reviewed With patient Progress improving Cognition Goal Cognition Goal, Date Established 07/05/18 Cognition Goal, Time to Achieve 1 wk Cognition Goal, Activity Type Patient will consistently be oriented x 4 and CAM (-) Cognition Goal, Outcome Achieved goal met Grooming Goal Grooming Goal, Date Established 07/05/18 Grooming Goal, Time to Achieve 1 wk Grooming Goal, Activity Type Patient will complete grooming tasks in supported sitting w/ setup only. Grooming Goal, Outcome goal met Toileting Goal Toileting Goal, Date Established 07/05/18 Toileting Goal, Time to Achieve 1 wk Toileting Goal, Activity Type Patient will be mod A for stand pivot transfer to a commode. LB Dressing Goal LB Dressing Goal, Date Established 07/05/18 LB Dressing Goal, Time to Achieve 1 wk LB Dressing Goal, Activity Type Patient will be mod a for LB dressing w/ AE as needed. LB Dressing Goal, Outcome goal ongoing Clinical Impression Criteria for Skilled Therapeutic Interventions Met treatment indicated Therapy Frequency 2-4 times/wk Anticipated Discharge Disposition inpatient rehabilitation facility * Plan of Care - Anel Jeffery RN - 07/11/2018 1:39 AM EST OUTCOME EVALUATION NOTE: OUTCOME SUMMARY: VSS on 3L NC, afebrile, pt c/o mild SOB though denied need for intervention. No complaints of pain,nausea or a cough overnight. Droplet precautions maintained, pt resting comfortably between care, will continue to monitor for changes. PLAN MOVING FORWARD: Monitor VS, labs, I&Os Encourage ambulation PRN nebs INDIVIDUALIZED FALL PREVENTION INTERVENTIONS: Patient-specific fall risk factors per assessment: [current deficits]: generalized weakness Assistance [level of assistance required for transfers and ambulation]: SBA Supervision [direct monitoring required during toileting and ADLs]: Eyes on Surveillance [continuous indirect monitoring]: hourly rounding, call lee in reach Patient-specific fall prevention interventions for sensory deficits provided, if applicable: N/A CPG GOAL OUTCOME EVALUATION: N/A * Plan of Care - Ирина Costello - 07/10/2018 5:39 PM EST Problem: Patient Care Overview Goal: Plan of Care Review Outcome: Ongoing (Interventions Implemented as Appropriate) 07/09/18 2220 07/10/18 1031 Plan of Care Review Progress progress towards functional goals is fair -- Coping/Psychosocial Plan Of Care Reviewed With -- patient OUTCOME EVALUATION NOTE: OUTCOME SUMMARY: Pt A/Ox4. Using walker in room with supervision and steady gait. Worked with PT. Was successfully titrated down to 1 L for walk. During times of fatigue, or when sleeping, continues to need 2-3 lpm NC to maintain sats. Tolerating PO. Denies pain. PLAN MOVING FORWARD: Continue to monitor INDIVIDUALIZED FALL PREVENTION INTERVENTIONS: Patient-specific fall risk factors per assessment: [current deficits]: Exercise intolerance Assistance [level of assistance required for transfers and ambulation]: Stand by Supervision [direct monitoring required during toileting and ADLs]: Eyes on Surveillance [continuous indirect monitoring]: Pulse ox, hourly rounding, call lee in reach Patient-specific fall prevention interventions for sensory deficits provided, if applicable: [X] Yes CPG GOAL OUTCOME EVALUATION: Safety maintained * Plan of Care - Rodney Cole, PT - 07/10/2018 10:13 AM EST Physical Therapy Treatment Treatment Number PT: 4 Pertinent History of Current Problem: Pt is a 58 yo female with a h/o depression, anxiety, former smoker, Migraines and a LBBB who was transferred from an OSH, 06/26/18, 2/2 Bilateral PNA and influenza A. She developed respiratory failure with hypoxia and required intubation. Pt with ARDS and was proned in ICU. Pt is improving after 10 days in ICU. Hyponatremia resolved. PT and OT consulted. RT isworking on weaning ventilator, 07/05/18. Pt transferred to the medical floor. Precautions/Restrictions: cardiac, fall, oxygen therapy device and L/min(full code. Droplet precautions) Precautions Comments: work on O2 wean. Assessment: Pt seen for gait, transfer, bed mobility, balance and endurance training. Pt did the five time sit<>stand test, scoring 22 sec, should be under 14 sec for her age. This indicates need for ongoing walker use, given weakness and imbalance. She was unable to stand with feet together 2/2 instability. Making good gains. Needs to walk more in the hallways with nursing. Coordination inhands, much improved. She could text. Still needing 2L with gait to keep SPO2 >90%. 1L at rest for >90%. Pt shown how to manage O2 line when walking and using the FWW. Pt with a strong, productive cough at end of the session. Need to progress to stair climbing, as she has 3 to enter home. Please see the flow sheet below for patient details and mobility. Pt would benefit from ongoing physical therapy interventions. Rehab over the next 2-3 days. No support at home. She lives alone and extended family works. Staff Mobility Recommendations: cga with gait, FWW in the halls, at least TID. Sit up for meals. Encourage IS use and airway clearance. Anticipated Discharge Disposition: inpatient rehabilitation facility(although if here until mid to end of week, consider home/VNA) RODNEY COLE, PT Pager: [phone] Inpatient Physical Therapy 07/10/18 1031 Rehab Evaluation Document Type therapy note (daily note) Total Evaluation Minutes, Physical Therapy 25 (TEF2) Patient Effort good Symptoms Noted During/After Treatment fatigue General Information Patient/Family/Caregiver Comments/Observations I have not been walking in the halls. I just walk in my room to use the toilet. I am feeling better. I can use a spoon to feed myself now and I can text. General Observations of Patient Pt originally in bed. Pt left sitting up in a chair. Precautions Comments work on O2 wean. Treatment Number PT 4 Living Environment Living Environment Comment Pt states she has 3 stairs with a railing to enter one story home. Vital Signs Heart Rate (90s-110) SpO2 (99% on 3L at rest, 93-94% on RA. Needs 2L for gt >90%.) O2 Flow Rate (L/min) (1-2L. Left pt on 1L at end of session. RA start and 2L gt) O2 Device NC Cognitive Assessment/Intervention Additional Documentation (alert and orientated x 4) Pain Scale/Rating Pain Assessment Scale Numbers (Numeric Rating Pain Scale) Pain Level 0 Mobility Assessment/Training Additional Documentation Bed Mobility Assessment/Treatment (Group);Gait Assessment/Treatment (Group);Transfer Assessment/Treatment (Group) Bed Mobility Assessment/Treatment Assistive Device (Bed Mobility) bed rails (hob 30) Nlafts-tn-Ljs Wetzel (Bed Mobility) supervision required Klb-rj-Arinnf Wetzel (Bed Mobility) supervision required Impairments (Bed Mobility) strength decreased Comment (Bed Mobility) supine<>sit 2x. Transfer Assessment/Treatment Wetzel (Sit-Stand Transfers) supervision required Wetzel (Stand-Sit Transfers) supervision required Qsq-[id number] Assistive Device (Transfers) rolling walker Impairments (Transfers) balance impaired;strength decreased Comment (Transfers) bed to recliner. 5x sit<>stand test, 22 sec with arms crossed on chest. Gait Assessment/Treatment Wetzel (Gait) contact guard assist (assist with monitors and supplemental O2.) Assistive Device (Gait) rolling walker Distance in Feet (Gait) ~300' Gait Pattern Analysis swing-through gait Deviations (Gait) donald decreased;double stance time increased;step length decreased Impairments (Gait) balance impaired;strength decreased Comment (Gait) multiple standing rests. Used ear probe to monitor O2. with 1L, Spo2 89-91%. 2L, SPO2 91-94%. Motor Skills/Interventions Additional Documentation Therapeutic Exercise (Group) Therapeutic Exercise Comment (Therapeutic Exercise) Used IS to 1200 ml, 5x, cues how to use effectively. Splinted coughsto follow with good production. Respiratory WDL Respiratory WDL (mild SOB) Cardiovascular WDL (Adult) Cardiac WDL WDL Skin WDL Skin WDL WDL Coping Observed Emotional State calm;cooperative Plan of Care Review Plan Of Care Reviewed With patient Bed Mobility Goal Bed Mobility Goal, Date Established 07/05/18 Bed Mobility Goal, Activity Type supine to sit/sit to supine Bed Mobility Goal, Wetzel Level supervision required;conditional independence Bed Mobility Goal, Date Goal Reviewed 07/10/18 Bed Mobility Goal, Outcome Achieved goal revised Gait Training Goal Gait Training Goal, Date Established 07/05/18 Gait Training Goal, Time to Achieve 30 days Gait Training Goal, Wetzel Level minimum assist (75% patient effort) Gait Training Goal, Assist Device (Likely walker or LRAD) Gait Training Goal, Distance to Achieve 100' with VSS Gait Training Goal, Additional Goal Up and down 3 stairs with a railing and cga, VSS Gait Training Goal, Date Goal Reviewed 07/10/18 Gait Training Goal, Outcome goal partially met Transfer Training Goal Transfer Training Goal, Date Established 07/05/18 Transfer Training Goal, Time to Achieve 30 days Transfer Training Goal, Activity Type [id number] Transfer Train Goal, Wetzel Level conditional independence Transfer Training Goal, Assist Device (TBD) Transfer Train Goal, Date Goal Reviewed 07/10/18 Transfer Training Goal, Outcome goal revised Physical Therapy Goal PT Goal, Date Established 07/05/18 PT Goal, Time to Achieve 30 days PT Goal, Activity Type Pt able to sit EOB without support for light functional activity. PT Goal, Additional Goal Pt able to clear own airways effectively and using IS >1000 ml PT Goal, Outcome goal ongoing Clinical Impression Therapy Frequency 2-4 times/wk Anticipated Discharge Disposition inpatient rehabilitation facility (although if here until mid to end of week, consider home/VNA) * Plan of Care - Violeta Valadez RN - 07/09/2018 5:22 PM EST Problem: Patient Care Overview Goal: Plan of Care Review Outcome: Ongoing (Interventions Implemented as Appropriate) 07/09/18 1657 Plan of Care Review Progress progress toward functional goals as expected Coping/Psychosocial Plan Of Care Reviewed With patient OUTCOME EVALUATION NOTE: OUTCOME SUMMARY: Yara was admitted for hypoxic respiratory failure related to influenza A. Pt remained on 2L NC during the day, unable to wean to RA. No complaints of pain, nausea, chest pain or SOB. Pt tolerating dysphagia soft diet well. Ambulating in room. Up in the chair during the day. Voiding adequate amountsduring the day, no straight caths required. Will continue to monitor. PLAN MOVING FORWARD: Monitor vitals and labs. Encourage ambulation and PO intake. Monitor respiratory status. Possible discharge Wednesday? INDIVIDUALIZED FALL PREVENTION INTERVENTIONS: Patient-specific fall risk factors per assessment: [current deficits]: High fall risk - deconditioning, new O2 requirement Assistance [level of assistance required for transfers and ambulation]: SBA with a walker Supervision [direct monitoring required during toileting and ADLs]: Eyes on. Surveillance [continuous indirect monitoring]: Call lee within reach. Masimo. Bed alarm. Hourly rounding. Patient-specific fall prevention interventions for sensory deficits provided, if applicable: N/a CPG GOAL OUTCOME EVALUATION: Goal: Individualization & Mutuality Outcome: Ongoing (Interventions Implemented as Appropriate) 07/08/18 1036 Mutuality/Individual Preferences What Anxieties, Fears or Concerns Do You Have About Your Health or Care? none What Questions Do You Have About Your Health or Care? none What Information Would Help Us Give You More Personalized Care? none Goal: Fall Prevention-Safe Patient Handling Outcome: Ongoing (Interventions Implemented as Appropriate) 07/09/18 0845 07/09/18 1000 Lubin Fall Risk History of Falling 0 -- Secondary Diagnosis 15 -- Ambulatory Aids 0 -- Intravenous Therapy/Heparin/Saline Lock 20 -- Gait/Transferring 10 -- Mental Status 0 -- Score 45 -- OTHER Lubin Fall Risk High -- Restraint Interventions Safety Promotion/Fall Prevention activity supervised;fall prevention program maintained;muscle strengthening facilitated;nonskid shoes/slippers when out of bed;safety round/check completed -- Positioning Body Position independent -- Activity Activity Type -- up in chair Activity Assistance Provided -- assistance, stand-by Assistive Device Utilized -- front-wheel walker Goal: Infection Control Outcome: Ongoing (Interventions Implemented as Appropriate) 07/09/18 0845 Safety Interventions Isolation Precautions droplet precautions maintained Infection Prevention environmental surveillance performed;barrier precautions utilized;personal protective equipment utilized;rest/sleep promoted;single patient room provided Coping Strategies Supportive Measures active listening utilized;decision-making supported;problem solving facilitated;self-care encouraged;verbalization of feelings encouraged Goal: Interdisciplinary Rounds/Family Conf Outcome: Ongoing (Interventions Implemented as Appropriate) 07/09/18 1657 Interdisciplinary Rounds/Family Conf Participants patient;nursing;physician Problem: Pneumonia (Adult) Goal: Signs and Symptoms of Listed Potential Problems Will be Absent, Minimized or Managed (Pneumonia) Signs and symptoms of listed potential problems will be absent, minimized or managed by discharge/transition of care (reference Pneumonia (Adult) CPG). Outcome: Ongoing (Interventions Implemented as Appropriate) 07/09/18 1657 Pneumonia Problems Assessed (Pneumonia) all Problems Present (Pneumonia) none Problem: Skin Integrity Impairment, Risk/Actual (Adult) Goal: Skin Integrity/Wound Healing Patient will demonstrate the desired outcomes by discharge/transition of care. Outcome: Ongoing (Interventions Implemented as Appropriate) 07/09/18 1657 Skin Integrity Impairment, Risk/Actual (Adult) Skin Integrity/Wound Healing making progress toward outcome * Plan of Care - Mona Ceballos RN - 07/09/2018 3:38 AM EST Problem: Patient Care Overview Goal: Plan of Care Review Outcome: Ongoing (Interventions Implemented as Appropriate) 07/08/18 1204 07/08/18 1922 Plan of Care Review Progress progress toward functional goals as expected -- Coping/Psychosocial Plan Of Care Reviewed With -- patient OUTCOME EVALUATION NOTE: OUTCOME SUMMARY: Pt a+o, VSS, no c/o pain. Pt in better spirits tonight, voice less hoarse. Up to bathroom couple times overnight, voiding adequate amounts on her own. Remains on 2L NC overnight. Boyfriend at bedsideovernight. Slept well. No acute issues or events overnight. PLAN MOVING FORWARD: Continue to monitor PT/OT/S[employer] PAYROLL CONSULTANT Ween off o2 INDIVIDUALIZED FALL PREVENTION INTERVENTIONS: Patient-specific fall risk factors per assessment: [current deficits]: generalized weakness, new environment, high fall risk, oxygen tubing, assistive devices Assistance [level of assistance required for transfers and ambulation]: SBA with walker Supervision [direct monitoring required during toileting and ADLs]: Hands on Surveillance [continuous indirect monitoring]: Masimo, purposeful rounding Patient-specific fall prevention interventions for sensory deficits provided, if applicable: [X] No CPG GOAL OUTCOME EVALUATION: * Plan of Care - Christine Mendoza RN - 07/08/2018 1:28 PM EST Problem: Patient Care Overview Goal: Plan of Care Review Outcome: Ongoing (Interventions Implemented as Appropriate) OUTCOME EVALUATION NOTE: OUTCOME SUMMARY: A+O. VSS. Pt worked with PT and ambulated around unit, see note. No straight caths required today, PVRs in 100s, will continue to monitor with bladder scans. No acute events. PLAN MOVING FORWARD: Continue to monitor UOP. Encourage ambulation with assistance. INDIVIDUALIZED FALL PREVENTION INTERVENTIONS: Patient-specific fall risk factors per assessment: [current deficits]: Pt is a high fall risk due to weakness and accessory use Assistance [level of assistance required for transfers and ambulation]: 1 assist w walker Supervision [direct monitoring required during toileting and ADLs]: Hands on Surveillance [continuous indirect monitoring]: Hourly rounding, call light within reach, pt calls appropriately, nonskid socks when out of bed, bed alarm on. Patient-specific fall prevention interventions for sensory deficits provided, if applicable: [X] N/A CPG GOAL OUTCOME EVALUATION: * Plan of Care - Rodney Cole, PT - 07/08/2018 12:28 PM EST Physical Therapy Treatment Treatment Number PT: 3 Pertinent History of Current Problem: Pt is a 58 yo female with a h/o depression, anxiety, former smoker, Migraines and a LBBB who was transferred from an OSH, 06/26/18, 2/2 Bilateral PNA and influenza A. She developed respiratory failure with hypoxia and required intubation. Pt with ARDS and was proned in ICU. Pt is improving after 10 days in ICU. Hyponatremia resolved. PT and OT consulted. RT isworking on weaning ventilator, 07/05/18. Pt transferred to the medical floor. Precautions/Restrictions: cardiac, fall, oxygen therapy device and L/min(full code. Droplet precautions) Precautions Comments: IJ Assessment: Pt now on the medical floor. Brother visiting when I first entered room but left. Pt ingood spirits. Seen for functional training; transfers, gait, balance and endurance training. She ismotivated. Lives completely alone. 2 kids live out of state but brothers are nearby. She states shecould stay with a brother but he works during the day, but not as much during the winter. He is a builder. Would benefit from a rehab stay to maximize functional endurance. Gait is improving, but still unable to feed self without modifications and she fatigues, fairly quickly. Needs many rests throughout session. Please see the flow sheet below for patient details and mobility. Pt would benefit from ongoing physical therapy interventions. Will follow up early next week for progressive PT and dcplanning. Staff Mobility Recommendations: min assist with FWW and chair follow for peralta distances. Should walk at least TID with Nursing and sit up for all meals. Anticipated Discharge Disposition: [facility] facility[facility] RODNEY COLE, PT Pager: [phone] Inpatient Physical Therapy 07/08/18 1201 Rehab Evaluation Document Type therapy note (daily note) Total Evaluation Minutes, Physical Therapy 40 (TEF3) Symptoms Noted During/After Treatment fatigue;shortness of breath General Information Patient/Family/Caregiver Comments/Observations I am feeling stronger. My hands do not function great. I drop food all over my self. General Observations of Patient Pt sitting in a recliner pre and post PT. Pertinent History of Current Problem Pt is a 58 yo female with a h/o depression, anxiety, former smoker, Migraines and a LBBB who was transferred from an OSH, 06/26/18, 2/2 Bilateral PNA and influenzaA. She developed respiratory failure with hypoxia and required intubation. Pt with ARDS and was proned in ICU. Pt is improving after 10 days in ICU. Hyponatremia resolved. PT and OT consulted. RT is working on weaning ventilator, 07/05/18. Pt transferred to the medical floor. Hearing Precautions/Limitations WFL Treatment Number PT 3 Vital Signs Heart Rate (90-105) BP (130s/80s) SpO2 96 % O2 Flow Rate (L/min) 2 L/min O2 Device NC Pain Scale/Rating Pain Assessment Scale Numbers (Numeric Rating Pain Scale) Pain Level 0 Mobility Assessment/Training Additional Documentation Gait Assessment/Treatment (Group);Transfer Assessment/Treatment (Group) Bed Mobility Assessment/Treatment Comment (Bed Mobility) Nursing had pt up in the recliner. Pt had walked a short distance to the commode with nursing. Transfer Assessment/Treatment Wetzel (Sit-Stand Transfers) minimum assist (75% patient effort) Wetzel (Stand-Sit Transfers) minimum assist (75% patient effort) Epf-Xegus-Ryh Assistive Device (Transfers) rolling walker Impairments (Transfers) balance impaired;strength decreased Comment (Transfers) recliner. Cues for proper alignment and UE use. Gait Assessment/Treatment Wetzel (Gait) minimum assist (75% patient effort);1 person + 1 person to manage equipment;verbal cues required (followed with a chair) Assistive Device (Gait) rolling walker Distance in Feet (Gait) 150' Deviations (Gait) donald decreased;double stance time increased Impairments (Gait) balance impaired;strength decreased Comment (Gait) Pt needed cues to increase DILAN. SLow pace with many standing rests. She did not wantto sit. Cues for purse lip breathing. Motor Skills/Interventions Additional Documentation Therapeutic Exercise (Group);Functional Endurance (Group) Balance Skills Training Sitting Balance: Static fair balance Sitting Balance: Dynamic fair balance [id number]-xl-[id number] Balance poor balance Standing Balance: Static fair balance (with UE support) Therapeutic Exercise Comment (Therapeutic Exercise) Used IS to 1000 ml 5x. Functional Endurance Functional Endurance Detail Needed to open most containers for pt.. Unable to use soup spoon without dropping soup so put soup in a cup for her. Able to feed self peaches with a fork and ice cream with a spoon. Respiratory WDL Respiratory WDL (CONTRERAS. Recovers with sitting and standing rests) Cardiovascular WDL (Adult) Cardiac WDL WDL Skin WDL Skin WDL WDL Coping Observed Emotional State calm;cooperative Plan of Care Review Plan Of Care Reviewed With patient Progress progress toward functional goals as expected Bed Mobility Goal Bed Mobility Goal, Date Established 07/05/18 Bed Mobility Goal, Activity Type supine to sit/sit to supine Bed Mobility Goal, Wetzel Level supervision required Bed Mobility Goal, Outcome Achieved goal ongoing Gait Training Goal Gait Training Goal, Date Established 07/05/18 Gait Training Goal, Time to Achieve 30 days Gait Training Goal, Wetzel Level minimum assist (75% patient effort) Gait Training Goal, Assist Device (Likely walker or LRAD) Gait Training Goal, Distance to Achieve 100' with VSS Gait Training Goal, Additional Goal Determine need to do stairs. Gait Training Goal, Outcome goal partially met Transfer Training Goal Transfer Training Goal, Date Established 07/05/18 Transfer Training Goal, Time to Achieve 30 days Transfer Training Goal, Activity Type [id number]-vi-[id number] Transfer Train Goal, Wetzel Level supervision required Transfer Training Goal, Assist Device (TBD) Transfer Train Goal, Date Goal Reviewed 07/08/18 Transfer Training Goal, Outcome goal revised Physical Therapy Goal PT Goal, Date Established 07/05/18 PT Goal, Time to Achieve 30 days PT Goal, Activity Type Pt able to sit EOB without support for light functional activity. PT Goal, Additional Goal Pt able to clear own airways effectively and using IS >1000 ml Clinical Impression Therapy Frequency 2-4 times/wk Anticipated Discharge Disposition inpatient rehabilitation facility (unless she had 24/7 support at home.) * Plan of Care - Shruti Gr, SAP PAYROLL CONSULTANT - 07/08/2018 12:07 PM EST Speech-Language Pathology Document Type: therapy note (daily note) Pertinent History of Current Problem: 58 y.o. woman with ARDS from influenza pneumonia Assessment: Pt seen for treatment of dysphagia. RN reported pt tolerating current dysphagia soft diet and thin liquids with no difficulties. Pt alert, oriented, and conversant. Pt declined PO trials to advance diet at this time d/t sore throat. Pt demonstrated no s/sx of aspiration with thin liquids at this time. Recommend continue dysphagia soft diet and thin liquids at this time. Speech Pathology will follow-up as indicated per POC. Please see flow sheet data below for specific details, POC and goals. Recommendations SAP PA[employer]ROLL CONSULTANT Diet Recommendation: thin liquids, semi-solid(dysphagia soft) Recommended Feeding/Eating Techniques: alternate between small bites and sips of food/liquid, maintain upright posture during/after eating for 30 mins, small sips/bites Therapy Frequency: 2-3 times/wk SHRUTI GR MA, CCC-S[employer] PA[employer] CONSULTANT Inpatient Speech Pathologist Pager# [phone] 07/08/18 1201 Rehab Evaluation Document Type therapy note (daily note) Total Evaluation Minutes, Speech Language Pathology 10 Patient Effort good Symptoms Noted During/After Treatment none General Information Patient Profile Review yes Patient/Family/Caregiver Comments/Observations Pt reports tolerating diet w/ no difficulties. Declines trials to advance diet at this time d/t sore throat General Observations of Patient sitting up in chair, alert, pleasant, cooperative Pertinent History of Current Problem 58 y.o. woman with ARDS from influenza pneumonia Precautions/Restrictions fall;oxygen therapy device and L/min (2L NC) Current Diet Limitations thin liquids;semi-solid Hearing Precautions/Limitations WFL Pain Assessment Additional Documentation (denies pain) Cognitive Assessment/Intervention Additional Documentation (alert, oriented, follows commands) Oral Motor Structure/Functional Assess Volitional swallow (Oral Motor Assessment) no issues initiating volitional swallow Volitional cough (Oral Motor Assessment) no issues initiating volitional cough Non Instrumental/Clinical Swallow Exam Additional Documentation NIS Thin Liquid Trial (Group) NIS Thin Liquid Trial Thin Liquid, Mode of Presentation (Nis) self-fed;straw Thin Liquid, Volume Presented (mL) (Nis) patient controlled volumes Thin Liquid, Oral Phase Results (Nis) intact oral phase without signs of dysfunction Thin Liquid, Pharyngeal Phase Results (Nis) safe swallow, no signs/symptoms of aspiration or penetration Thin Liquid, Pharyngeal Phase, Cervical Auscultation (Nis) normal sounds/flow Plan of Care Review Plan Of Care Reviewed With patient Progress progress toward functional goals as expected Speech Language Pathology Goal Types SAP [employer]LL CONSULTANT Goal Types Dysphagia Goal (Group) Dysphagia Goal Dysphagia Goal, Date Established 07/07/18 Oral Nutritional Level Goal safely tolerates/maintains adequate oral nutrition;safely tolerates recommended diet texture;safely tolerates recommended liquid viscosity;no signs/symptoms of aspiration present Dysphagia Goal, Outcome goal ongoing Clinical Impression SAP [employer]LL CONSULTANT Swallowing Diagnosis mild dysphagia;oral dysfunction Rehab Potential/Prognosis, Swallowing good, to achieve stated therapy goals Therapy Frequency 2-3 times/wk [employer] CONSULTANT Diet Recommendation thin liquids;semi-solid (dysphagia soft) Recommended Feeding/Eating Techniques alternate between small bites and sips of food/liquid;maintain upright posture during/after eating for 30 mins;small sips/bites Monitor for Signs of Aspiration cough;gurgly voice;throat clearing * Plan of Care - Shruti Gr SAP PAYROLL CONSULTANT - 07/07/2018 5:08 PM EST Speech-Language Pathology Document Type: evaluation Pertinent History of Current Problem: 58 y.o. woman with ARDS from influenza pneumonia Assessment: Pt seen at bedside for clinical evaluation of swallow function. Prior to admission pt reports consuming a regular textured diet with thin liquids. Pt completed trials of ice chips, thin liquids, puree, and solids. Pt's oral phase characterized by timely oral manipulation of bolus and no noted residue post however c/o fatigue as PO trials progressed. Suspect pharyngeal phase WFL secondary to adequate hyolaryngeal excursion and swallow trigger upon palpation of swallow. Pt exhibited no s/sx of aspiration at this time. Recommend initiate dysphagia soft textured diet and thin liquids at this time. Speech Pathology will follow-up as indicated per POC. Pt and RN were instructed on recommended dietand liquid consistencies, swallow precautions, and general dysphagia education. Please see flow sheet data below for specific details, POC and goals. Thank you for your consult. ?? Recommendations [employer] PA[employer]ROLL CONSULTANT Diet Recommendation: thin liquids, semi-solid(dysphagia soft) Recommended Feeding/Eating Techniques: alternate between small bites and sips of food/liquid, maintain upright posture during/after eating for 30 mins, small sips/bites Standard aspiration precautions. STOP PO intake with s/s of aspiration Therapy Frequency: 2-3 times/wk SHRUTI GR MA, [facility] PA[employer]ROLL CONSULTANT Inpatient Speech Pathologist Pager# [phone] 07/07/18 9815 Rehab Evaluation Document Type evaluation Total Evaluation Minutes, Speech Language Pathology 20 Patient Effort excellent Symptoms Noted During/After Treatment fatigue General Information Patient Profile Review yes Patient/Family/Caregiver Comments/Observations No family present. Pt agreeable to PO trials General Observations of Patient sitting up in chair, alert, pleasant, cooperative Pertinent History of Current Problem 58 y.o. woman with ARDS from influenza pneumonia Precautions/Restrictions fall;NPO;oxygen therapy device and L/min (3L NC) Current Diet Limitations NPO Hearing Precautions/Limitations WFL Pain Assessment Additional Documentation (denies pain) Cognitive Assessment/Intervention Additional Documentation (alert, oriented, follows commands) Oral Motor Structure/Functional Assess Dentition (Oral Motor Assessment) missing teeth in some areas Secretion Management (Oral Motor Assessment) (cough at baseline) Mucosal Quality (Oral Motor Assessment) good Velar Elevation (Oral Motor Assessment) WFL Volitional swallow (Oral Motor Assessment) some issues initiating volitional swallow Volitional cough (Oral Motor Assessment) no issues initiating volitional cough Oral Musculature General Assessment (generalized weakness) Non Instrumental/Clinical Swallow Exam Additional Documentation NIS Thin Liquid Trial (Group);NIS Puree Trial (Group);NIS Solid Trial (Group) NIS Thin Liquid Trial Thin Liquid, Mode of Presentation (Nis) self-fed;cup;straw Thin Liquid, Volume Presented (mL) (Nis) 5 mL;patient controlled volumes Thin Liquid, Oral Phase Results (Nis) intact oral phase without signs of dysfunction Thin Liquid, Pharyngeal Phase Results (Nis) safe swallow, no signs/symptoms of aspiration or penetration Thin Liquid, Pharyngeal Phase, Cervical Auscultation (Nis) normal sounds/flow NIS Puree Trial Puree, Mode of Presentation (Nis) self-fed;spoon Puree, Volume Presented (mL) (Nis) 5 mL Puree, Oral Phase Results (Nis) intact oral phase without signs of dysfunction Puree, Pharyngeal Phase Results (Nis) safe swallow, no signs/symptoms of aspiration or penetration Puree, Pharyngeal Phase, Cervical Auscultation (Nis) normal sounds/flow NIS Solid Trial Solid Food, Mode of Presentation (Nis) self-fed Solid Food, Volume Presented (mL) (Nis) patient controlled volumes Solid Food, Oral Phase Results (Nis) impaired oral phase, signs of dysfunction present Solid Food, Oral Transit Concerns (Nis) oral transit delayed Solid Food, Pharyngeal Phase Results (Nis) safe swallow, no signs/symptoms of aspiration or penetration Solid Food, Comment (Nis) (c/o fatigue as trials continued) Plan of Care Review Plan Of Care Reviewed With patient Speech Language Pathology Goal Types SAP PA[employer]ROLL CONSULTANT Goal Types Dysphagia Goal (Group) Dysphagia Goal Dysphagia Goal, Date Established 07/07/18 Oral Nutritional Level Goal safely tolerates/maintains adequate oral nutrition;safely tolerates recommended diet texture;safely tolerates recommended liquid viscosity;no signs/symptoms of aspiration present Clinical Impression SAP PA[employer]ROLL CONSULTANT Swallowing Diagnosis mild dysphagia;moderate dysphagia;oral dysfunction Rehab Potential/Prognosis, Swallowing good, to achieve stated therapy goals Therapy Frequency 2-3 times/wk SAP PA[employer]ROLL CONSULTANT Diet Recommendation thin liquids;semi-solid (dysphagia soft) Recommended Feeding/Eating Techniques alternate between small bites and sips of food/liquid;maintain upright posture during/after eating for 30 mins;small sips/bites Monitor for Signs of Aspiration cough;throat clearing;gurgly voice * Plan of Care - Chloe Hernandez RN - 07/07/2018 3:59 PM EST Problem: Patient Care Overview Goal: Plan of Care Review Outcome: Ongoing (Interventions Implemented as Appropriate) 07/07/18 1300 Plan of Care Review Progress improving Coping/Psychosocial Plan Of Care Reviewed With patient OUTCOME EVALUATION NOTE: ?? OUTCOME SUMMARY: A&O. VSS on 3L NC. Unable to titrate lower than 3L. No episodes of desaturation, SOB or tachypnea. HR NS/ ST with LBBB. No stridor or wheezes today. Assessed by SAP PAYROLL CONSULTANT this afternoon, advanced to dysphagia soft. Poor PO intake after diet advanced. Due to void, bladder scanned <400ml 2x. No urgeto void at this time. PAPER BUNDLER aware. Droplet precautions discontinued this afternoon. Sat up in chair and worked with PT/ OT. Planning to transfer to hospital medicine this evening. ?? PLAN MOVING FORWARD: Titrated O2 as tolerated, transfer to hospital medicine ? INDIVIDUALIZED FALL PREVENTION INTERVENTIONS: ?? Patient-specific fall risk factors per assessment: [current deficits]: Generalized weakness ?? Assistance [level of assistance required for transfers and ambulation]: 1-2 assist ?? Supervision [direct monitoring required during toileting and ADLs]: Hands on ?? Surveillance [continuous indirect monitoring]: Room near RN station, pierce monitor ?? Patient-specific fall prevention interventions for sensory deficits provided, if applicable: [X] Yes ? CPG GOAL OUTCOME EVALUATION: * Plan of Care - Rodney Cole, PT - 07/07/2018 2:02 PM EST Physical Therapy Treatment Treatment Number PT: 2 Pertinent History of Current Problem: Pt is a 58 yo female with a h/o depression, anxiety, former smoker, Migraines and a LBBB who was transferred from an OS, 06/26/18, 2/2 Bilateral PNA and influenza A. She developed respiratory failure with hypoxia and required intubation. Pt with ARDS and was proned in ICU. Pt is improving after 10 days in ICU. Hyponatremia resolved. PT and OT consulted. RT isworking on weaning ventilator, 07/05/18. Precautions/Restrictions: cardiac, fall, oxygen therapy device and L/min(full code. Droplet precautions) Precautions Comments: IJ Assessment: Pt seen for exercises, gait, transfer, bed mobility and balance training. Pt was extubated, 07/06/18. Nursing got her OOB to a chair this AM. Was able to get her back into bed with 2 personassist.. Much stronger than 2 days ago. Will advance gait and endurance, tomorrow, as tolerated. Ptfatigued from sitting up in the chair for a couple of hours. Please see the flow sheet below for patient details and mobility. Pt would benefit from ongoing physical therapy interventions. Staff Mobility Recommendations: 2 person with FWW, bed<>chair. Anticipated Discharge Disposition: inpatient rehabilitation facility RODNEY COLE, PT Pager: [phone] Inpatient Physical Therapy 07/07/18 1300 Rehab Evaluation Document Type therapy note (daily note) Total Evaluation Minutes, Physical Therapy 25 (TEF2) Patient Effort adequate Symptoms Noted During/After Treatment fatigue General Information Patient/Family/Caregiver Comments/Observations I need my suction. I do not remember the first 10 days of being here. General Observations of Patient Pt initially sitting in the chair. Waited for bed to arrive. Pt left supine in bed. Precautions/Restrictions cardiac;fall;oxygen therapy device and L/min (full code. Droplet precautions) Precautions Comments IJ Treatment Number PT 2 Vital Signs Heart Rate (90-100) SpO2 94 % O2 Flow Rate (L/min) 3 L/min O2 Device NC Cognitive Assessment/Intervention Additional Documentation (alert and orientated) Pain Scale/Rating Pain Assessment Scale Numbers (Numeric Rating Pain Scale) Pain Level 0 Mobility Assessment/Training Additional Documentation Bed Mobility Assessment/Treatment (Group);Gait Assessment/Treatment (Group);Transfer Assessment/Treatment (Group) Bed Mobility Assessment/Treatment Scoot/Bridge Wetzel (Bed Mobility) moderate assist (50% patient effort);2 person assist required Kna-lk-Qfgunl Wetzel (Bed Mobility) minimum assist (75% patient effort) Impairments (Bed Mobility) balance impaired;strength decreased Comment (Bed Mobility) pt back to bed once regular floor bed placed in the room. HOUSING CASE MANAGER was obtaining a call light for pt.. (Sat EOB without LOB. Laid down prior to PT ready) Transfer Assessment/Treatment Wetzel (Sit-Stand Transfers) minimum assist (75% patient effort);verbal cues required;2 person assist required Wetzel (Stand-Sit Transfers) verbal cues required;minimum assist (75% patient effort);2 person assist required Qam-Dnwzh-Xeo Assistive Device (Transfers) gait belt;rolling walker Impairments (Transfers) balance impaired;strength decreased Comment (Transfers) stood for ~ 30 seconds while nursing placed an air cushion under her. Returned 1 hour later, when floor bed in room. Gait Assessment/Treatment Wetzel (Gait) minimum assist (75% patient effort);2 person assist required Assistive Device (Gait) rolling walker;gait belt Distance in Feet (Gait) 2' pivot and 2' back to the bed. Impairments (Gait) balance impaired;strength decreased (fatigue) Comment (Gait) recliner to bed. Motor Skills/Interventions Additional Documentation Therapeutic Exercise (Group) Therapeutic Exercise Comment (Therapeutic Exercise) sitting exercises: Alternating shoulder flex/ext x 5; B LAQs; marching; and heel to toe raises. Respiratory WDL Respiratory WDL (using oral suction, at times) Skin WDL Skin WDL WDL Coping Observed Emotional State calm;cooperative Plan of Care Review Plan Of Care Reviewed With patient Progress improving Bed Mobility Goal Bed Mobility Goal, Date Established 07/05/18 Bed Mobility Goal, Activity Type supine to sit/sit to supine Bed Mobility Goal, Wetzel Level supervision required Bed Mobility Goal, Outcome Achieved goal ongoing Gait Training Goal Gait Training Goal, Date Established 07/05/18 Gait Training Goal, Time to Achieve 30 days Gait Training Goal, Wetzel Level minimum assist (75% patient effort) Gait Training Goal, Assist Device (Likely walker or LRAD) Gait Training Goal, Distance to Achieve 100' with VSS Gait Training Goal, Additional Goal Determine need to do stairs. Gait Training Goal, Outcome goal ongoing Transfer Training Goal Transfer Training Goal, Date Established 07/05/18 Transfer Training Goal, Time to Achieve 30 days Transfer Training Goal, Activity Type acs-ay-ganaw/lelak-mu-oos Transfer Train Goal, Wetzel Level minimum assist (75% patient effort) Transfer Training Goal, Assist Device (TBD) Transfer Training Goal, Outcome goal ongoing Physical Therapy Goal PT Goal, Date Established 07/05/18 PT Goal, Time to Achieve 30 days PT Goal, Activity Type Pt able to sit EOB without support for light functional activity. PT Goal, Additional Goal Pt able to clear own airways effectively and using IS >1000 ml Clinical Impression Therapy Frequency 2-4 times/wk Anticipated Discharge Disposition inpatient rehabilitation facility * Consult Note - Elaine Steward RN - 07/07/2018 10:20 AM EST Certified Wound Care Nurse Note Situation: Asked to see Yara Slaughter Jered for follow up erythema to bridge of nose Background: eD-H notes reviewed for history, admitting diagnosis and active problem list. Wound Assessment and Care Provided: Patient greeted and reason for visit stated, Patient agreed to assessment and treatment. Patient sitting up on arrival with NC in place. Bridge of nose is skin toned and blanching. Slava Score: 17 Last Pressure Ulcer Prevention assessment: Shift Pressure Injury Prevention Occiput: New Injury Thoracic Spine: No Injury Sacral: No Injury Ischial - left: No Injury Ischial - right: No Injury Heel - left: No Injury Heel - right: No Injury Elbow - left: No Injury Elbow - right: No Injury Device Sites: oxygen tubing, O2 sat monitor, IV sites, ECG Leads, BP Cuff Other Sites: ID band Nutritional Status Wt Readings from Last 1 Encounters: 07/07/18 72.1 kg (158 lb 15.2 oz) Body mass index is 25.66 kg/m??. Assessment: Patient with blanching erythema to bridge of nose now resolved ?? Wound Care Recommendations: ?? Offload area as much as possible with using alternat masks/ O2 delivery methods if possible ?? Apply Mepilex Foam on bridge of nose for protection ?? Refer to adult/pediatric pressure ulcer prevention job aid in the clinical policy library ?? Wound Care will complete consult at this time, please re consult with any questions or concerns Discussed plan with: RNConcepcion Corona Please contact Elaine Steward RN on pager [phone] or the wound care team at [phone] or pager [phone] skin and wound care concerns or questions. * Plan of Care - Chloe Hernandez RN - 07/06/2018 5:35 PM EST Problem: Patient Care Overview Goal: Plan of Care Review Outcome: Ongoing (Interventions Implemented as Appropriate) 07/05/18 1057 07/05/181999 Plan of Care Review Progress improving -- Coping/Psychosocial Plan Of Care Reviewed With -- patient OUTCOME EVALUATION NOTE: OUTCOME SUMMARY: A&O. VSS. Pt intubated this morning, continued on 1.2 of Dex. Extubated at 1300, tolerating well. Continued on 5L NC. No episodes of desaturation, SOB or tachypnea. However, pt has some upper airway stridor, lower lung walden clear. PRN nebulizer not very helpful. Continued on droplet precautions. Afebrile throughout the day. NS/ST with LBBB. Gonzalez discontinued at 1600. 2 BM today on bedpan.Family visited with patient for several hours this afternoon. Wallet and handbag sent home with brother per patient request. PLAN MOVING FORWARD: Titrated O2 as tolerated, manage stridor, begin cough assist INDIVIDUALIZED FALL PREVENTION INTERVENTIONS: Patient-specific fall risk factors per assessment: [current deficits]: Generalized weakness Assistance [level of assistance required for transfers and ambulation]: 1-2 assist Supervision [direct monitoring required during toileting and ADLs]: Hands on Surveillance [continuous indirect monitoring]: Room near RN station, pierce monitor Patient-specific fall prevention interventions for sensory deficits provided, if applicable: [X] Yes CPG GOAL OUTCOME EVALUATION: * Plan of Care - Jesus Sotut RN - 07/06/2018 5:12 AM EST Problem: Ventilation, Mechanical Invasive (Adult) Goal: Signs and Symptoms of Listed Potential Problems Will be Absent, Minimized or Managed (Ventilation, Mechanical Invasive) Signs and symptoms of listed potential problems will be absent, minimized or managed by discharge/transition of care (reference Ventilation, Mechanical Invasive (Adult) CPG). Outcome: Ongoing (Interventions Implemented as Appropriate) 07/06/18 0509 Ventilation, Mechanical Invasive Problems Assessed (Mechanical Ventilation, Invasive) all Problems Present (Mechanical Ventilation, Invasive) immobility;situational response OUTCOME EVALUATION NOTE: OUTCOME SUMMARY: Patient remains on precedex at max rate to keep anxiety under control; tolerating PS ventilation at 5/5 with adequate SpO2. PLAN MOVING FORWARD: Wean sedation and hopefully liberate from the ventilator today. INDIVIDUALIZED FALL PREVENTION INTERVENTIONS: Side rails up X 4 Patient-specific fall risk factors per assessment: [current deficits]: Ventilated/sedated CPG GOAL OUTCOME EVALUATION: Patient making progress towards liberation from the ventilator. * Plan of Care - Carmela-Rodney Dorado, PT - 07/05/2018 10:37 AM EST Physical Therapy Evaluation Pertinent History of Current Problem: Pt is a 58 yo female with a h/o depression, anxiety, former smoker, Migraines and a LBBB who was transferred from an OSH, 06/26/18, 2/2 Bilateral PNA and influenza A. She developed respiratory failure with hypoxia and required intubation. Pt with ARDS and was proned in ICU. Pt is improving after 10 days in ICU. Hyponatremia resolved. PT and OT consulted. RT isworking on weaning ventilator, 07/05/18. Precautions/Restrictions: cardiac, fall, NPO, oxygen therapy device and L/min(Droplet prec.. Full code. Ventilator 35%, peep 8. ) Precautions Comments: R radial dominik, aquiles YANES. OGT Assessment: Pt seen for PT/OT co evaluation and session for: transfer, standing and sitting balance, endurance, ROM/strength and positioning training; and pt ed. Pt is a high complexity given need for ICU care, ventilator requirement, invasive monitoring and functional limitations 2/2 the followingimpairments: aerobic capacity/endurance;arousal, attention, and cognition;gait, locomotion, and balance;motor function;muscle performance;posture;ROM (range of motion);ventilation and respiration/gasexchange. Pt is fairly sick but normally active, self sufficient and works [employer]. Hopefully will progress well, barring no further complications. She does live alone and likely will need to consider rehab unless family member can assist at home and VNA supports. TBD. Please see associated flow sheet data below for objective information regarding today's session. Pt did sit at foot of bed fromchair mode and stand with 2 person max assist.. Staff Mobility Recommendations: 2 max assist for standing and sitting. Recommend that nursing use over head for OOB <> chair, and/or use intermittent chair mode in the bed. Anticipated Discharge Disposition: (likely will need some form of inpt rehab ) RODNEY COLE, PT Pager: [phone] Inpatient Physical Therapy 2017 PT Evaluation Code Rationale: ?? Diagnosis & Pertinent Co-Morbidities, personal factors, and present illness affecting Plan of Care: Patient Active Problem List Diagnosis Code ??? Respiratory failure with hypoxia J96.91 ??? Influenza A (H1N1) J10.1 ??? Hyponatremia E87.1 ??? Acute respiratory distress syndrome (ARDS) J80 Additional personal factors or co-morbidities that impact plan: ?? Total # of Factors: 0 1-2 3+ x ?? Examination of body system impairments, functional limitations and behaviors, and/or participation restrictions. Addressing 1-2 elements Addressing 3 + elements Addressing 4 + elements x ?? Clinical presentation: See assessment above. Stable/Uncomplicated Evolving/Fluctuating Symptoms Unstable/Unpredictable x ?? Clinical decision making of high complexity based on pt's functional performance as outlined in this evaluation. 07/05/18 1057 Rehab Evaluation Document Type evaluation Total Evaluation Minutes, Physical Therapy 48 (High EV and TEF) Patient Effort adequate Symptoms Noted During/After Treatment fatigue General Information Patient/Family/Caregiver Comments/Observations Pt nodding head yes and no to questions. Also uses facial expressions. General Observations of Patient Pt initially partially L sidelying. Pt left sitting in a partial chair position in bed. Pertinent History of Current Problem Pt is a 58 yo female with a h/o depression, anxiety, former smoker, Migraines and a LBBB who was transferred from an OSH, 06/26/18, 2/2 Bilateral PNA and influenzaA. She developed respiratory failure with hypoxia and required intubation. Pt with ARDS and was proned in ICU. Pt is improving after 10 days in ICU. Hyponatremia resolved. PT and OT consulted. RT is working on weaning ventilator, 07/05/18. Hearing Precautions/Limitations WFL Precautions/Restrictions cardiac;fall;NPO;oxygen therapy device and L/min (Droplet prec.. Full code. Ventilator 35%, peep 8. ) Precautions Comments R radial line, FARZANA, aquiles. OGT Limitations/Impairments safety/cognitive (mildly sedated on vent) Treatment Number PT 1 Living Environment Patient population Adult Living Environment Living Environment Comment From CRC note, pt lives alone, , no stairs and one level home Functional Level Prior Ambulation 0-->independent Transferring 0-->independent Toileting 0-->independent Bathing 0-->independent Dressing 0-->independent Eating 0-->independent Communication 0-->understands/communicates without difficulty Swallowing 0-->swallows foods/liquids without difficulty Prior Functional Level Comment Pt normally works [employer] and is independent/self sufficient. Self-Care Dominant Hand left Usual Activity Tolerance excellent Current Activity Tolerance fair Vital Signs Heart Rate (70-80s) BP (110-120/70s R radial line, supine and sitting) SpO2 (91-93%) FiO2 (%) 35 % O2 Flow Rate (L/min) 60 L/min O2 Device Ventilator Vision Assessment/Intervention Additional Documentation (Denied wearing glasses) Cognitive Assessment/Intervention Additional Documentation (Alert. gestures + nods. Did not know why here or where sheis) Pain Scale/Rating Pain Assessment Scale Faces (Brito-Brito FACES Pain Rating Scale) Pain Level 0 ROM (Range of Motion) Additional Documentation General Assessment (Group) General Range of Motion Detail PT/OT able to move BUEs through at least 80% normal ROM and actively~ 20%. B ankle DF 0-5 degrees, passively. B hip ab ~ 20 actively. Knees and hips flex 90 sitting atfoot of bed, ~45 degrees active in supine. 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 Rest of UEs 2-3/5. Pt could SLR each LE~ 2 off the bed. B hips 2-2+/5. Quads 4/5. B ankle DF 2/5 and PF 3/5. Mobility Assessment/Training Additional Documentation Bed Mobility Assessment/Treatment (Group);Transfer Assessment/Treatment (Group) Bed Mobility Assessment/Treatment Assistive Device (Bed Mobility) bed rails;draw sheet (HOB and chair modes) Scoot/Bridge Wetzel (Bed Mobility) maximum assist (25% patient effort);2 person assist required (shortened foot board, pt pushed on) Impairments (Bed Mobility) balance impaired;flexibility decreased;motor control impaired;postural control impaired;strength decreased Comment (Bed Mobility) Pt scooted up in bed, then placed in full chair mode, in bed, footboard off. Transfer Assessment/Treatment Wetzel (Sit-Stand Transfers) maximum assist (25% patient effort);2 person assist required;verbal cues required Wetzel (Stand-Sit Transfers) maximum assist (25% patient effort);2 person assist required Zei-Nepit-Hpl Assistive Device (Transfers) gait belt (Knees blocked) Impairments (Transfers) balance impaired;postural control impaired;strength decreased Comment (Transfers) Stood For ~ 1 minute w/ max assist of 2, knees blocked, while nursing changed sheets under pt.. Cueds needed for upright vs flexed head and trunk posture. Motor Skills/Interventions Additional Documentation Balance Skills Training (Group);Therapeutic Exercise (Group) Balance Skills Training Training Strategies (Balance) Sat ~ 3x, without back support, from full chair mode, min to mod assist, pt with hands on bed rails to assist or on bed, ~ 1 minute each Sitting Balance: Static poor balance Sitting Balance: Dynamic poor balance Gcz-ah-Rmhyj Balance poor balance Standing Balance: Static poor balance Sensory Assessment/Intervention Additional Documentation (Denied numbness or paresthesias) Respiratory WDL Respiratory WDL (RR 20-30s. Required oral suct.. 100% fio2 pre stand) Cardiovascular WDL (Adult) Cardiac WDL WDL Skin WDL Skin WDL WDL (Tattoos on arms and legs) Coping Observed Emotional State calm;cooperative Plan of Care Review Plan Of Care Reviewed With patient Progress improving Physical Therapy Goal Types Physical Therapy Goal Types Bed Mobility Goal (Group);Gait Training Goal (Group);Transfer Training Goal (Group);Physical Therapy Goal (Group) Bed Mobility Goal Bed Mobility Goal, Date Established 07/05/18 Bed Mobility Goal, Time to Achieve 30 days Bed Mobility Goal, Activity Type supine to sit/sit to supine Bed Mobility Goal, Wetzel Level supervision required Bed Mobility Goal, Outcome Achieved goal ongoing Gait Training Goal Gait Training Goal, Date Established 07/05/18 Gait Training Goal, Time to Achieve 30 days Gait Training Goal, Wetzel Level minimum assist (75% patient effort) Gait Training Goal, Assist Device (Likely walker or LRAD) Gait Training Goal, Distance to Achieve 100' with VSS Gait Training Goal, Additional Goal Determine need to do stairs. Gait Training Goal, Outcome goal ongoing Transfer Training Goal Transfer Training Goal, Date Established 07/05/18 Transfer Training Goal, Time to Achieve 30 days Transfer Training Goal, Activity Type hrn-co-ajbhj/fvhbn-np-xhl Transfer Train Goal, Wetzel Level minimum assist (75% patient effort) Transfer Training Goal, Assist Device (TBD) Transfer Training Goal, Outcome goal ongoing Physical Therapy Goal PT Goal, Date Established 07/05/18 PT Goal, Time to Achieve 30 days PT Goal, Activity Type Pt able to sit EOB without support for light functional activity. PT Goal, Additional Goal Pt able to clear own airways effectively and using IS >1000 ml Clinical Impression Criteria for Skilled Therapeutic Interventions Met yes;treatment indicated Impairments Found (describe specific impairments) aerobic capacity/endurance;arousal, attention, and cognition;gait, locomotion, and balance;motor function;muscle performance;posture;ROM (range of mot ion);ventilation and respiration/gas exchange Therapy Frequency 2-4 times/wk Anticipated Equipment Needs at Discharge (TBD) Anticipated Discharge Disposition (likely will need some form of inpt rehab ) General Interventions Additional Documentation Planned Therapy Interventions (Group) Planned Therapy Interventions balance training;bed mobility training;gait training;patient/family education;postural re-education;ROM (range of motion);strengthening;transfer training * Plan of Care - Jose F Samano OT - 07/05/2018 9:55 AM EST Occupational Therapy Evaluation Pertinent History of Current Problem: Pt is a 58 yo female with a h/o depression, anxiety, former smoker, Migraines and a LBBB who was transferred from an OSH, 06/26/18, 2/2 Bilateral PNA and influenza A. She developed respiratory failure with hypoxia and required intubation. Pt with ARDS and was proned in ICU. Pt is improving after 10 days in ICU. Hyponatremia resolved. PT and OT consulted. RT isworking on weaning ventilator, 07/05/18. Precautions/Restrictions: fall, oxygen therapy device and L/min, NPO Precautions Comments: R sanjeev a-line, RIJ, ETT, OG Assessment: Pt was seen for an occupational therapy evaluation, please refer to associated flowsheet data listed below for details. Yara Lawton presents with the following performance skill deficits and client factors: impaired orientation, decreased activity tolerance w/ fatigue, decreased oxygenation on the ventilator, impaired communication, impaired balance, and poor sustained muscular endurance with functional weakness. Pt was progressed to the full chair position of the bed, completedLB dressing, grooming, (with max A) and UE exercises. Pt stood from the end of the bed (chair position) w/ max A x 2 and RN assist for line management. Pt will benefit from further inpatient OT interv entions to address performance deficits and maximize participation and independence with occupations of daily living. Staff Recommendations: Allow for upright positioning when possible Encourage participation in her care [place] regulalry Anticipated Discharge Disposition: inpatient rehabilitation facility(TBD pending progress) Pager: [phone] JOSE F SAMANO OT 07/05/2018 Occupational Therapy Rehabilitation Department 07/05/18 0955 Rehab Evaluation Document Type evaluation Total Evaluation Minutes, Occupational Therapy 48 (eval and therex x 1) Patient Effort adequate Symptoms Noted During/After Treatment fatigue General Information Patient Profile Review yes Patient/Family/Caregiver Comments/Observations following most commands, nodding/shaking head Pertinent History of Current Problem Pt is a 58 yo female with a h/o depression, anxiety, former smoker, Migraines and a LBBB who was transferred from an OSH, 06/26/18, 2/2 Bilateral PNA and influenzaA. She developed respiratory failure with hypoxia and required intubation. Pt with ARDS and was proned in ICU. Pt is improving after 10 days in ICU. Hyponatremia resolved. PT and OT consulted. RT is working on weaning ventilator, 07/05/18. Precautions/Restrictions fall;oxygen therapy device and L/min;NPO Precautions Comments R radial a-line, RIJ, ETT, OG Limitations/Impairments safety/cognitive Treatment Number OT 1 Living Environment Patient population Adult Living Environment Living Environment Comment Per chart, pt lives alone w/ no stairs to enter, 1 level. Functional Level Prior Prior Functional Level Comment Per chart, pt works [employer] and is independent at baseline. Self-Care Dominant Hand left Vital Signs Heart Rate 78 BP 116/57 (101/62 (75) w/ activity) FiO2 (%) 35 % (35% Fi02, PEEP: 8 PS above PEEP:10) O2 Device Ventilator Vision Assessment/Intervention Visual Impairment/Limitations (denies needing glasses) Impact of Vision Impairment on Function squinting but able to read the clock on the wall Cognitive Assessment Interventions Behavior/Mood Observations (Cognitive) alert;cooperative Orientation Status (Cognitive) oriented to;person;place (not time or situation) Attention (Cognitive) mild impairment;difficulty attending to task/directions Follows Commands/Answers Questions (Cognitive) able to follow single-step instructions;75% of the time;needs increased time;needs cueing;needs repetition Cognitive Assessment/Interventions Comment still receiving sedation, RASS 0 to - 1 Pain Scale/Rating Pain Assessment Scale Numbers (Numeric Rating Pain Scale) Pain Level 0 (denied pain) ICU - Adult Non Verbal Pain Score Facial Expression 0 Activity/Movement 0 Guarding 0 Physiological (Vital Signs) 0 Respiratory Function 0 Adult Nonverbal Pain Score 0 ROM (Range of Motion) General Range of Motion Detail AROM UE's and LE's WFL MMT (Manual Muscle Testing) General Manual Muscle Testing Assessment Detail bilateral shoulder flex: 3/5, elbow flex/ext: 3/5, alumina plant supervisor:3+/5, weak functionally 2/2 poor attention; LE's grossly 3-4/5 Bed Mobility Assessment/Treatment Impairments (Bed Mobility) balance impaired;strength decreased Scoot/Bridge Wetzel (Bed Mobility) maximum assist (25% patient effort);2 person assist required Assistive Device (Bed Mobility) bed rails;draw sheet Comment (Bed Mobility) progressed to the full chair position of the bed w/ feet on the floor; worked on pulling forward and attempting unsupported sitting; pillows placed behind back (decreased sustained unsupported sitting0 Transfer Assessment/Treatment Wetzel (Sit-Stand Transfers) maximum assist (25% patient effort);2 person assist required Wetzel (Stand-Sit Transfers) maximum assist (25% patient effort);2 person assist required Xso-Tsceu-Ndd Assistive Device (Transfers) gait belt (blocking knees, RN assist for ETT) Impairments (Transfers) balance impaired;motor control impaired;postural control impaired;strength decreased Comment (Transfers) stood for ~1 min from full chair position of the bed w/ 2 assist Lower Body Dressing Assessment/Training Position (LB Dressing) supported sitting Wetzel Level (LB Dressing) maximum assist (25% patient effort) Impairments (LB Dressing) postural control impaired;coordination impaired;balance impaired;strengthdecreased;flexibility decreased Comment (LB Dressing) once pulled over foot, max A to pull up (able to [employer]umina plant supervisor w/ LUE 1 /10 times, multiple alumina plant supervisor slips), poor coordination and control Grooming Assessment/Training Position (Grooming) supported sitting Wetzel Level (Grooming) maximum assist (25% patient effort) Impairments (Grooming) coordination impaired;flexibility decreased;motor control impaired;strength decreased Comment (Grooming) max A to sustain alumina plant supervisor on wash cloth and wash face Plan of Care Review Plan Of Care Reviewed With patient Cognition Goal Cognition Goal, Date Established 07/05/18 Cognition Goal, Time to Achieve 1 wk Cognition Goal, Activity Type Patient will consistently be oriented x 4 and CAM (-) Grooming Goal Grooming Goal, Date Established 07/05/18 Grooming Goal, Time to Achieve 1 wk Grooming Goal, Activity Type Patient will complete grooming tasks in supported sitting w/ setup only. Toileting Goal Toileting Goal, Date Established 07/05/18 Toileting Goal, Time to Achieve 1 wk Toileting Goal, Activity Type Patient will be mod A for stand pivot transfer to a commode. LB Dressing Goal LB Dressing Goal, Date Established 07/05/18 LB Dressing Goal, Time to Achieve 1 wk LB Dressing Goal, Activity Type Patient will be mod a for LB dressing w/ AE as needed. Clinical Impression Criteria for Skilled Therapeutic Interventions Met treatment indicated Therapy Frequency 2-4 times/wk Anticipated Equipment Needs at Discharge (TBD) Anticipated Discharge Disposition inpatient rehabilitation facility (TBD pending progress) 2017 OT Evaluation Code Rationale: ?? Diagnosis & Pertinent Co-Morbidities affecting Plan of Care: see PMHx ?? Occupational Profile & Client History: Brief Expanded Extensive x ?? Assessment of Occupational Performance: 1-3 performance deficits 3-5 performance deficits 5 + performance deficits x ?? Clinical Decision Making: Low Moderate High x Clinical decision making of high complexity using standardized patient assessment instrument and measurable assessment of functional outcome. * Plan of Care - Jesus Stout RN - 07/05/2018 6:52 AM EST Problem: Ventilation, Mechanical Invasive (Adult) Goal: Signs and Symptoms of Listed Potential Problems Will be Absent, Minimized or Managed (Ventilation, Mechanical Invasive) Signs and symptoms of listed potential problems will be absent, minimized or managed by discharge/transition of care (reference Ventilation, Mechanical Invasive (Adult) CPG). Outcome: Ongoing (Interventions Implemented as Appropriate) 07/05/18 0648 Ventilation, Mechanical Invasive Problems Assessed (Mechanical Ventilation, Invasive) all Problems Present (Mechanical Ventilation, Invasive) immobility;inability to wean;situational response OUTCOME EVALUATION NOTE: OUTCOME SUMMARY: PT on PSV /8 with FiO2 35% and tolerating well with SpO2 93%. Precedex weaned from 1.7 mcg/kg/hr down to 0.9mcg/kg/hr and tolerating well. Pt calm, cooperative, following commands and moving all extremities. PLAN MOVING FORWARD: Continue to wean sedation and ventilatory support as tolerated. INDIVIDUALIZED FALL PREVENTION INTERVENTIONS: Side rails up X 4. Patient-specific fall risk factors per assessment: [current deficits]: Vented/sedated. Assistance [level of assistance required for transfers and ambulation]: 2-person. CPG GOAL OUTCOME EVALUATION: Patient is making progress towards being liberated from the ventilator. * Plan of Care - Jesus Stout RN - 07/04/2018 7:46 AM EST Problem: Ventilation, Mechanical Invasive (Adult) Goal: Signs and Symptoms of Listed Potential Problems Will be Absent, Minimized or Managed (Ventilation, Mechanical Invasive) Signs and symptoms of listed potential problems will be absent, minimized or managed by discharge/transition of care (reference Ventilation, Mechanical Invasive (Adult) CPG). Outcome: Ongoing (Interventions Implemented as Appropriate) 07/04/18 0743 Ventilation, Mechanical Invasive Problems Present (Mechanical Ventilation, Invasive) immobility;situational response OUTCOME EVALUATION NOTE: OUTCOME SUMMARY: Propofol weaned off. Pt following simple commands. VALLES. PLAN MOVING FORWARD: Wean sedation and ventilator. INDIVIDUALIZED FALL PREVENTION INTERVENTIONS: Patient-specific fall risk factors per assessment: [current deficits]: Vented/sedated. Assistance [level of assistance required for transfers and ambulation]: 2 person. CPG GOAL OUTCOME EVALUATION: Pt making progress towards goals. * Plan of Care - Maite Blackmon RN - 07/03/2018 5:55 PM EST Problem: Patient Care Overview Goal: Plan of Care Review Outcome: Ongoing (Interventions Implemented as Appropriate) 07/03/18 1728 Plan of Care Review Progress improving Coping/Psychosocial Plan Of Care Reviewed With patient OUTCOME EVALUATION NOTE: OUTCOME SUMMARY: Pt remains intubated and sedated. Added precedex to sedation in hopes to get propofol off. This evening when propofol off, P/F ratio went from 165 to 144, team aware and prop restarted. Pt opens eyesto command and follows commands w/ significant weakness. ABG x3 done. In VC 40-45% FiO2, PEEP 8 Rate 16 TV (increased to) 420. Chest xray done, 40mg Lasix given x2. Levo off around 1250 today. Remains in LBBB. TF remain at goal. No BM. PLAN MOVING FORWARD: Increase sedation, monitor ABGs. Titrate sedation and vent settings slowly as tolerated. INDIVIDUALIZED FALL PREVENTION INTERVENTIONS: Patient-specific fall risk factors per assessment: [current deficits]: Intubated and sedated. Assistance [level of assistance required for transfers and ambulation]: 2 assist. Supervision [direct monitoring required during toileting and ADLs]: Purposeful hourly rounding. Room near nurses' station. Surveillance [continuous indirect monitoring]: ICU [place]. Bed alarm on. Patient-specific fall prevention interventions for sensory deficits provided, if applicable: [X] Yes CPG GOAL OUTCOME EVALUATION: * Plan of Care - Raisa Lopez RN - 07/03/2018 6:56 AM EST Problem: Patient Care Overview Goal: Plan of Care Review Outcome: Ongoing (Interventions Implemented as Appropriate) 06/29/18 0456 07/02/181999 Plan of Care Review Progress improving -- Coping/Psychosocial Plan Of Care Reviewed With -- patient;family OUTCOME EVALUATION NOTE: OUTCOME SUMMARY: PERRLA, withdrawing from pain. Few episodes of desat, fi02 raised to 50% briefly, dropped back to 40% @ 0500, tolerating well, continuing to wean as tolerated. NSR with HR 70s, levo titrated to MAP >65, afebrile. TF @ goal of 65, tolerating well. No BM over night. Adequate UOP. K+ replaced per protocol. PLAN MOVING FORWARD: Continue to wean sedation/fi02 as tolerated. Wean pressors as tolerated. Continue to monitor closely. INDIVIDUALIZED FALL PREVENTION INTERVENTIONS: Patient-specific fall risk factors per assessment: [current deficits]: IV lines/drains, generalizedweakness. Assistance [level of assistance required for transfers and ambulation]: 2 person assist. Supervision [direct monitoring required during toileting and ADLs]: Alarms set/audible, room near unit station, routine safety checks, bed in lowest position. Surveillance [continuous indirect monitoring]: ICU [place]. Patient-specific fall prevention interventions for sensory deficits provided, if applicable: [X] Yes CPG GOAL OUTCOME EVALUATION: Goal: Individualization & Mutuality Outcome: Ongoing (Interventions Implemented as Appropriate) 06/26/18 1033 Mutuality/Individual Preferences What Anxieties, Fears or Concerns Do You Have About Your Health or Care? I'm afraid I won't be ableto breathe at home. What Questions Do You Have About Your Health or Care? When will my breathing get better? Goal: Fall Prevention-Safe Patient Handling Outcome: Ongoing (Interventions Implemented as Appropriate) 06/28/1879907/01/18179907/02/181999 [place] Fall Risk History of Falling -- -- 0 Secondary Diagnosis -- -- 15 Ambulatory Aids -- -- 0 Intravenous Therapy/Heparin/Saline Lock -- -- 20 Gait/Transferring -- -- 0 Mental Status -- -- 15 Score -- -- 50 OTHER Lubin Fall Risk -- -- High Restraint Interventions Safety Promotion/Fall Prevention -- -- -- Positioning Body Position -- supine, head elevated -- Activity Activity Type -- -- -- Activity Assistance Provided -- -- -- Assistive Device Utilized oxygen -- -- 07/03/18599 L[place] Fall Risk History of Falling -- Secondary Diagnosis -- Ambulatory Aids -- Intravenous Therapy/Heparin/Saline Lock -- Gait/Transferring -- Mental Status -- Score -- OTHER Lubin Fall Risk -- Restraint Interventions Safety Promotion/Fall Prevention safety round/check completed;fall prevention program maintained Positioning Body Position -- Activity Activity Type bedrest Activity Assistance Provided assistance, 2 people Assistive Device Utilized -- Goal: Infection Control Outcome: Ongoing (Interventions Implemented as Appropriate) 07/02/1879907/02/18199907/03/18599 Safety Interventions Isolation Precautions -- -- droplet precautions maintained Infection Prevention single patient room provided;rest/sleep promoted;personal protective equipmentutilized;cohorting utilized;environmental surveillance performed;equipment surfaces disinfected -- -- Coping Strategies Supportive Measures -- relaxation techniques promoted;positive reinforcement provided -- Goal: Interdisciplinary Rounds/Family Conf Outcome: Ongoing (Interventions Implemented as Appropriate) 06/28/181932 Interdisciplinary Rounds/Family Conf Participants advanced practice nurse;nursing;patient;physician;respiratory therapy Problem: Pneumonia (Adult) Goal: Signs and Symptoms of Listed Potential Problems Will be Absent, Minimized or Managed (Pneumonia) Signs and symptoms of listed potential problems will be absent, minimized or managed by discharge/transition of care (reference Pneumonia (Adult) CPG). Outcome: Ongoing (Interventions Implemented as Appropriate) 07/02/18 08 Pneumonia Problems Assessed (Pneumonia) all Problems Present (Pneumonia) fluid/electrolyte imbalance Problem: Skin Integrity Impairment, Risk/Actual (Adult) Goal: Identify Related Risk Factors and Signs and Symptoms Related risk factors and signs and symptoms are identified upon initiation of Human Response Clinical Practice Guideline (CPG) Outcome: Ongoing (Interventions Implemented as Appropriate) 06/29/18 045 Skin Integrity Impairment, Risk/Actual Skin Integrity Impairment, Risk/Actual: Related Risk Factors cognitive impairment;immobility;infection/disease process Goal: Skin Integrity/Wound Healing Patient will demonstrate the desired outcomes by discharge/transition of care. Outcome: Ongoing (Interventions Implemented as Appropriate) 06/29/18455 Skin Integrity Impairment, Risk/Actual (Adult) Skin Integrity/Wound Healing making progress toward outcome * Plan of Care - Cherelle Bosch RN - 07/02/2018 6:37 PM EST Problem: Patient Care Overview Goal: Plan of Care Review Outcome: Ongoing (Interventions Implemented as Appropriate) 06/29/1845507/02/18 0800 Plan of Care Review Progress improving -- Coping/Psychosocial Plan Of Care Reviewed With -- patient;family OUTCOME EVALUATION NOTE: OUTCOME SUMMARY: Pt is sedated and now a RASS of -3. Nimbex off since 0900 and now opens eyes to voice. Does not follow commands. Pt remains on volume control, TV 360, rate of 18, FiO2 40% and a PEEP of 8. Levo has been titrated between 2-3mcg throughout shift. NSR in the 70s with a LBBB. TF on since 1000 am and now running at 30ml, goal is 65. Adequate UOP, no BMs. PLAN MOVING FORWARD: Liberate vent settings, increase as tolerated INDIVIDUALIZED FALL PREVENTION INTERVENTIONS: Patient-specific fall risk factors per assessment: [current deficits]: Intubated, sedated, IV's Assistance [level of assistance required for transfers and ambulation]: Assist x2 Supervision [direct monitoring required during toileting and ADLs]: Room near nurses station, closeobservation Surveillance [continuous indirect monitoring]: [place] [facility] * Plan of Care - Raisa Lopez RN - 07/02/2018 5:19 AM EST Problem: Patient Care Overview Goal: Plan of Care Review Outcome: Ongoing (Interventions Implemented as Appropriate) 06/29/18 0456 07/01/181999 Plan of Care Review Progress improving -- Coping/Psychosocial Plan Of Care Reviewed With -- patient;family OUTCOME EVALUATION NOTE: OUTCOME SUMMARY: Pt remains sedated and paralyzed on VC with Fi02 40%, tolerating well. NSR with HR 70s, Levo titrated to MAP goal >65, afebrile over night. Good UOP. K+ replacement over night per protocol. PLAN MOVING FORWARD: Wean 02 requirements as tolerated. Wean pressor requirements as tolerated. Continue to monitor closely. INDIVIDUALIZED FALL PREVENTION INTERVENTIONS: Patient-specific fall risk factors per assessment: [current deficits]: IV lines/drains. Assistance [level of assistance required for transfers and ambulation]: 2 person assist. Supervision [direct monitoring required during toileting and ADLs]: Alarms set/audible, room near unit station, routine safety checks, bed in lowest position. Surveillance [continuous indirect monitoring]: ICU [place]. Patient-specific fall prevention interventions for sensory deficits provided, if applicable: [X] Yes CPG GOAL OUTCOME EVALUATION: Goal: Individualization & Mutuality Outcome: Ongoing (Interventions Implemented as Appropriate) 06/26/18 1033 Mutuality/Individual Preferences What Anxieties, Fears or Concerns Do You Have About Your Health or Care? I'm afraid I won't be ableto breathe at home. What Questions Do You Have About Your Health or Care? When will my breathing get better? Goal: Fall Prevention-Safe Patient Handling Outcome: Ongoing (Interventions Implemented as Appropriate) 06/28/18 0800 07/01/18 1800 07/01/181999 [place] Fall Risk History of Falling -- -- 0 Secondary Diagnosis -- -- 15 Ambulatory Aids -- -- 0 Intravenous Therapy/Heparin/Saline Lock -- -- 20 Gait/Transferring -- -- 20 Mental Status -- -- 15 Score -- -- 70 OTHER Lubin Fall Risk -- -- High Restraint Interventions Safety Promotion/Fall Prevention -- -- -- Positioning Body Position -- supine, head elevated -- Activity Activity Type -- -- -- Activity Assistance Provided -- -- -- Assistive Device Utilized oxygen -- -- 07/02/18 0400 [place] Fall Risk History of Falling -- Secondary Diagnosis -- Ambulatory Aids -- Intravenous Therapy/Heparin/Saline Lock -- Gait/Transferring -- Mental Status -- Score -- OTHER [place] Fall Risk -- Restraint Interventions Safety Promotion/Fall Prevention safety round/check completed;fall prevention program maintained Positioning Body Position -- Activity Activity Type bedrest Activity Assistance Provided assistance, 2 people Assistive Device Utilized -- Goal: Infection Control Outcome: Ongoing (Interventions Implemented as Appropriate) 07/01/18199907/02/18 0400 Safety Interventions Isolation Precautions -- droplet precautions maintained Infection Prevention rest/sleep promoted;single patient room provided;environmental surveillance performed;equipment surfaces disinfected -- Coping Strategies Supportive Measures relaxation techniques promoted;positive reinforcement provided -- Goal: Interdisciplinary Rounds/Family Conf Outcome: Ongoing (Interventions Implemented as Appropriate) 06/28/18 1933 Interdisciplinary Rounds/Family Conf Participants advanced practice nurse;nursing;patient;physician;respiratory therapy Problem: Pneumonia (Adult) Goal: Signs and Symptoms of Listed Potential Problems Will be Absent, Minimized or Managed (Pneumonia) Signs and symptoms of listed potential problems will be absent, minimized or managed by discharge/transition of care (reference Pneumonia (Adult) CPG). Outcome: Ongoing (Interventions Implemented as Appropriate) 06/30/18 0506 Pneumonia Problems Assessed (Pneumonia) fluid/electrolyte imbalance;respiratory compromise Problems Present (Pneumonia) fluid/electrolyte imbalance;infection progression;respiratory compromise Problem: Skin Integrity Impairment, Risk/Actual (Adult) Goal: Identify Related Risk Factors and Signs and Symptoms Related risk factors and signs and symptoms are identified upon initiation of Human Response Clinical Practice Guideline (CPG) Outcome: Ongoing (Interventions Implemented as Appropriate) 06/29/18 0456 Skin Integrity Impairment, Risk/Actual Skin Integrity Impairment, Risk/Actual: Related Risk Factors cognitive impairment;immobility;infection/disease process Goal: Skin Integrity/Wound Healing Patient will demonstrate the desired outcomes by discharge/transition of care. Outcome: Ongoing (Interventions Implemented as Appropriate) 06/29/18 0456 Skin Integrity Impairment, Risk/Actual (Adult) Skin Integrity/Wound Healing making progress toward outcome * Consult Note - Kiya Lowery RN - 07/01/2018 11:48 AM EST Certified Wound Care Nurse Situation: Rounding visit for discussion with ICU nurse regarding ability to comply with the Prone Positioning for the Management of Early ARDS Procedure - Adult Critical Care (Procedure 5852). Background: .Patient recently turned supine. Discussed patient with RN. Patient recently turned supine, RN has not completed full anterior skin assessment yet. Reviewed assessment of all bony prominences, under devices and preventative dressings for pressure injury development and ability to turn/reposition per Prone Positioning for the Management of Early ARDS Procedure - Adult Critical Care (Procedure 5852). Discussed if any barriers were present for routine care, turning schedules and / or pressure injury prevention. Issues/concerns identified: All Mepilex border dressings peeled back. Left illiac crest with pink, blanchable discoloration. No other areas of discoloration or concern. RN unsure whether patient willbe prone again tonight. Assessment: ICU nurse states no barriers to following the Prone Positioning for the Management of Early ARDS Procedure - Adult Critical Care (Procedure 5852). Recommendations: Follow prone protocol. Following hospital standard for pressure ulcer prevention and skin care. Refer to adult/pediatric pressure ulcer prevention job aid in the clinical policy library. Wound care will follow up Wednesday. Discussed findings with: RN: Shravan RT: Stephan * Plan of Care - Raisa Lopez RN - 07/01/2018 4:43 AM EST Problem: Patient Care Overview Goal: Plan of Care Review Outcome: Ongoing (Interventions Implemented as Appropriate) 06/29/18 0456 06/30/181999 Plan of Care Review Progress improving -- Coping/Psychosocial Plan Of Care Reviewed With -- patient OUTCOME EVALUATION NOTE: OUTCOME SUMMARY: Pt was proned and paralyzed with nimbex @ change of shift. All IV lines changed due to new R IJ access, per protocol. Pt remains on VC with TV 360, PEEP 14, Rate 18 and Fi02 60%, tolerating well, ABGs ran per ARDS protocol. NSR with HR 70s, MAP >65 with doni @ 40 over night. Febrile with Tmax 38.1, team aware, tylenol given, tolerated well. No BM over night. Adequate UOP. Sputum cultures collected. PLAN MOVING FORWARD: Continue to wean 02 requirements as tolerated. Continue to monitor closely. INDIVIDUALIZED FALL PREVENTION INTERVENTIONS: Patient-specific fall risk factors per assessment: [current deficits]: IV lines/drains. Assistance [level of assistance required for transfers and ambulation]: 3 person assist. Supervision [direct monitoring required during toileting and ADLs]: Alarms set/aubile, room near unit station, routine safety checks, bed in lowest position. Surveillance [continuous indirect monitoring]: ICU [place]. Patient-specific fall prevention interventions for sensory deficits provided, if applicable: [X] Yes CPG GOAL OUTCOME EVALUATION: Goal: Individualization & Mutuality Outcome: Ongoing (Interventions Implemented as Appropriate) 06/26/18 1033 Mutuality/Individual Preferences What Anxieties, Fears or Concerns Do You Have About Your Health or Care? I'm afraid I won't be ableto breathe at home. What Questions Do You Have About Your Health or Care? When will my breathing get better? Goal: Fall Prevention-Safe Patient Handling Outcome: Ongoing (Interventions Implemented as Appropriate) 06/28/18 0800 06/29/18199906/30/18 1200 [place] Fall Risk History of Falling -- 0 -- Secondary Diagnosis -- 15 -- Ambulatory Aids -- 0 -- Intravenous Therapy/Heparin/Saline Lock -- 20 -- Gait/Transferring -- 0 -- Mental Status -- 15 -- Score -- 50 -- OTHER [place]ubin Fall Risk -- High -- Restraint Interventions Safety Promotion/Fall Prevention -- -- -- Positioning Body Position -- -- supine Activity Activity Type -- -- -- Activity Assistance Provided -- -- -- Assistive Device Utilized oxygen -- -- 07/01/18399 [place] Fall Risk History of Falling -- Secondary Diagnosis -- Ambulatory Aids -- Intravenous Therapy/Heparin/Saline Lock -- Gait/Transferring -- Mental Status -- Score -- OTHER [place] Fall Risk -- Restraint Interventions Safety Promotion/Fall Prevention safety round/check completed;fall prevention program maintained Positioning Body Position -- Activity Activity Type bedrest Activity Assistance Provided assistance, 3 or more people Assistive Device Utilized -- Goal: Infection Control Outcome: Ongoing (Interventions Implemented as Appropriate) 06/30/18199907/01/18399 Safety Interventions Isolation Precautions -- droplet precautions maintained Infection Prevention single patient room provided;rest/sleep promoted;environmental surveillance performed;equipment surfaces disinfected -- Coping Strategies Supportive Measures relaxation techniques promoted;positive reinforcement provided -- Goal: Interdisciplinary Rounds/Family Conf Outcome: Ongoing (Interventions Implemented as Appropriate) 06/28/18 1933 Interdisciplinary Rounds/Family Conf Participants advanced practice nurse;nursing;patient;physician;respiratory therapy Problem: Pneumonia (Adult) Goal: Signs and Symptoms of Listed Potential Problems Will be Absent, Minimized or Managed (Pneumonia) Signs and symptoms of listed potential problems will be absent, minimized or managed by discharge/transition of care (reference Pneumonia (Adult) CPG). Outcome: Ongoing (Interventions Implemented as Appropriate) 06/30/18 0506 Pneumonia Problems Assessed (Pneumonia) fluid/electrolyte imbalance;respiratory compromise Problems Present (Pneumonia) fluid/electrolyte imbalance;infection progression;respiratory compromise Problem: Skin Integrity Impairment, Risk/Actual (Adult) Goal: Identify Related Risk Factors and Signs and Symptoms Related risk factors and signs and symptoms are identified upon initiation of Human Response Clinical Practice Guideline (CPG) Outcome: Ongoing (Interventions Implemented as Appropriate) 06/29/18 0456 Skin Integrity Impairment, Risk/Actual Skin Integrity Impairment, Risk/Actual: Related Risk Factors cognitive impairment;immobility;infection/disease process Goal: Skin Integrity/Wound Healing Patient will demonstrate the desired outcomes by discharge/transition of care. Outcome: Ongoing (Interventions Implemented as Appropriate) 06/29/18 045 Skin Integrity Impairment, Risk/Actual (Adult) Skin Integrity/Wound Healing making progress toward outcome * Plan of Care - Efrain Leyva RN - 06/30/2018 5:06 AM EST Problem: Pneumonia (Adult) Goal: Signs and Symptoms of Listed Potential Problems Will be Absent, Minimized or Managed (Pneumonia) Signs and symptoms of listed potential problems will be absent, minimized or managed by discharge/transition of care (reference Pneumonia (Adult) CPG). 06/30/18 0506 Pneumonia Problems Assessed (Pneumonia) fluid/electrolyte imbalance;respiratory compromise Problems Present (Pneumonia) fluid/electrolyte imbalance;infection progression;respiratory compromise * Plan of Care - Slime Reece RN - 06/29/2018 5:09 PM EST Problem: Patient Care Overview Goal: Plan of Care Review Outcome: Ongoing (Interventions Implemented as Appropriate) 06/29/18 0456 06/29/18 0800 Plan of Care Review Progress improving -- Coping/Psychosocial Plan Of Care Reviewed With -- patient;significant other OUTCOME EVALUATION NOTE: OUTCOME SUMMARY: Patient sedated to RASS of -2, pupils equal and reactive, moves all extremities equally Volume control: RR 16, Vt 400, PEEP 10, FiO2 40% NSR with left bundle branch block, HR 60s-70s, Doni titrated for a MAP goal of 65 Tube feeds to be initiated Low urine output noted, CCS aware. Peripheral doni running all shift, central line requirement discussed with CCS. Decision was made tonot place line at this time. PIV monitored Q1. Family updated over the phone. VSS. Will continue to monitor. PLAN MOVING FORWARD: Continue supportive care Wean O2 as tolerated INDIVIDUALIZED FALL PREVENTION INTERVENTIONS: Patient-specific fall risk factors per assessment: [current deficits]: High risk related to impaired cognition Assistance [level of assistance required for transfers and ambulation]: 2 Assist Supervision [direct monitoring required during toileting and ADLs]: Dependent Surveillance [continuous indirect monitoring]: Purposeful hourly Cresencio bunch ICU monitor Patient-specific fall prevention interventions for sensory deficits provided, if applicable: [X] N/A CPG GOAL OUTCOME EVALUATION: * Plan of Care - Neema Soriano RN - 06/29/2018 5:10 AM EST Problem: Patient Care Overview Goal: Plan of Care Review 06/28/18199906/29/18 3486 Plan of Care Review Progress -- improving Coping/Psychosocial Plan Of Care Reviewed With patient;significant other;sibling -- OUTCOME EVALUATION NOTE: OUTCOME SUMMARY: Patient sedated to RASS -5 on 40 propofol, 200 fentanyl. Synchronous with ventilator. Vent settingsweaned, currently in volume control, 50% FiO2, tidal volume 400, rate 16, PEEP 10. Maintaining SpO2> 95%. Sinus gloria to sinus rhythm, 50s-60s. Pressor titrated to maintain MAP > 65, doni currently at 17. Patient was hypothermic to 34.9 at 0400 vitals. Earnestine hugger applied and esophageal probeplaced. OG tube to low continuous wall suction with minimal thin, yellow drainage. Gonzalez draining adequate volume (100-450 cc/Q 2 hours) clear, yellow urine. Will continue to monitor and inform team of changes. PLAN MOVING FORWARD: Monitor respiratory status and wean ventilator settings as indicated. Maintain MAP > 65. Temperature management. INDIVIDUALIZED FALL PREVENTION INTERVENTIONS: Patient-specific fall risk factors per assessment: [current deficits]: Patient at risk to fall related to sedation, hypoxemia, unfamiliar environment, and the presence of equipment. Assistance [level of assistance required for transfers and ambulation]: 2 person assist for repositioning Supervision [direct monitoring required during toileting and ADLs]: Hands on for ADLs Surveillance [continuous indirect monitoring]: Bed alarm Patient-specific fall prevention interventions for sensory deficits provided, if applicable: [X] No CPG GOAL OUTCOME EVALUATION: Goal: Fall Prevention-Safe Patient Handling 06/28/18 0806/28/18199906/29/18 0200 Lubin Fall Risk History of Falling -- 0 -- Secondary Diagnosis -- 15 -- Ambulatory Aids -- 0 -- Intravenous Therapy/Heparin/Saline Lock -- 20 -- Gait/Transferring -- 0 -- Mental Status -- 15 -- Score -- 50 -- OTHER Lubin Fall Risk -- High -- Restraint Interventions Safety Promotion/Fall Prevention -- -- -- Positioning Body Position -- -- side-lying, right Activity Activity Type -- -- -- Activity Assistance Provided -- -- -- Assistive Device Utilized oxygen -- -- 06/29/18429 Lubin Fall Risk History of Falling -- Secondary Diagnosis -- Ambulatory Aids -- Intravenous Therapy/Heparin/Saline Lock -- Gait/Transferring -- Mental Status -- Score -- OTHER Lubin Fall Risk -- Restraint Interventions Safety Promotion/Fall Prevention safety round/check completed Positioning Body Position -- Activity Activity Type activity adjusted per tolerance Activity Assistance Provided assistance, 2 people Assistive Device Utilized -- Goal: Infection Control 06/28/18199906/29/18429 Safety Interventions Isolation Precautions -- droplet precautions maintained Infection Prevention rest/sleep promoted;single patient room provided;visitors restricted/screened -- Coping Strategies Supportive Measures active listening utilized;positive reinforcement provided;relaxation techniquespromoted;verbalization of feelings encouraged -- Problem: Pneumonia (Adult) Goal: Signs and Symptoms of Listed Potential Problems Will be Absent, Minimized or Managed (Pneumonia) Signs and symptoms of listed potential problems will be absent, minimized or managed by discharge/transition of care (reference Pneumonia (Adult) CPG). 06/28/181999 Pneumonia Problems Assessed (Pneumonia) all Problems Present (Pneumonia) fluid/electrolyte imbalance;infection progression;respiratory compromise Problem: Skin Integrity Impairment, Risk/Actual (Adult) Goal: Identify Related Risk Factors and Signs and Symptoms Related risk factors and signs and symptoms are identified upon initiation of Human Response Clinical Practice Guideline (CPG) 06/29/18 0456 Skin Integrity Impairment, Risk/Actual Skin Integrity Impairment, Risk/Actual: Related Risk Factors cognitive impairment;immobility;infection/disease process Goal: Skin Integrity/Wound Healing Patient will demonstrate the desired outcomes by discharge/transition of care. 06/29/18 0456 Skin Integrity Impairment, Risk/Actual (Adult) Skin Integrity/Wound Healing making progress toward outcome * Plan of Care - Kelsie Chapman RN - 06/28/2018 7:36 PM EST Problem: Patient Care Overview Goal: Plan of Care Review Outcome: Ongoing (Interventions Implemented as Appropriate) 06/28/181932 Coping/Psychosocial Plan Of Care Reviewed With patient Pt required increased O2 support throughout beginning of shift; sats 89 to 92% on 100% HFNC, with desats to 70s on activity; sats low 90s on 60% BiPAP. Intubated approx 1600; current settings VC, FiO2 80%, PEEP 14. Receiving Fentanyl at 200, Propofol at 50. On Doni at 30 to maintain MAPs >65. Received 20 mg Lasix, approx 400 cc urine out. Droplet precautions maintained. Goal: Fall Prevention-Safe Patient Handling Outcome: Ongoing (Interventions Implemented as Appropriate) 06/28/18 0600 06/28/18 0800 06/28/18 1800 Lubin Fall Risk History of Falling -- 0 -- Secondary Diagnosis -- 15 -- Ambulatory Aids -- 0 -- Intravenous Therapy/Heparin/Saline Lock -- 20 -- Gait/Transferring -- 10 -- Mental Status -- 0 -- Score -- 45 -- OTHER Lubin Fall Risk -- High -- Restraint Interventions Safety Promotion/Fall Prevention -- -- safety round/check completed Positioning Body Position independent -- -- Activity Activity Type -- -- activity adjusted per tolerance Activity Assistance Provided -- -- assistance, 2 people Assistive Device Utilized -- oxygen -- Goal: Infection Control Outcome: Ongoing (Interventions Implemented as Appropriate) 06/28/18 0800 06/28/18 1800 Safety Interventions Isolation Precautions -- droplet precautions maintained Infection Prevention single patient room provided;rest/sleep promoted -- Coping Strategies Supportive Measures active listening utilized;decision-making supported;relaxation techniques promoted;self-care encouraged -- Goal: Interdisciplinary Rounds/Family Conf Outcome: Ongoing (Interventions Implemented as Appropriate) 06/28/18 1933 Interdisciplinary Rounds/Family Conf Participants advanced practice nurse;nursing;patient;physician;respiratory therapy * Consult Note - Elaine Steward RN - 06/28/2018 2:52 PM EST Images from the original note were not included. Certified Wound Care Nurse Note Situation: Asked to see Yara Lawton by nursing for bridge of nose red/blanchable/sore, patienton BiPAP/HFMask Mepilex in place Background: eD-H notes reviewed for history, admitting diagnosis and active problem list. Wound Assessment and Care Provided: Patient greeted and reason for visit stated, Patient agreed to assessment and treatment. Patient sitting up in bed on arrival, Face mask in place, Mepilex lite removed and skin cleansed with saf clens dermal cleanser. Patient has slow blanching erythema to the bridge of her nose. Mepilex foam placed and mask replaced. Slava Score: 19 Last Pressure Ulcer Prevention assessment: Shift Pressure Injury Prevention Occiput: No Injury Thoracic Spine: No Injury Sacral: No Injury Ischial - left: No Injury Ischial - right: No Injury Heel - left: No Injury Heel - right: No Injury Elbow - left: No Injury Elbow - right: No Injury Device Sites: O2 sat monitor, IV sites, ECG Leads Other Sites: ID band; NIBP cuff Nutritional Status Wt Readings from Last 1 Encounters: 06/28/18 74.1 kg (163 lb 5.8 oz) Body mass index is 26.37 kg/m??. Current bed: Total care sport Assessment: Patient with blanching erythema to bridge of nose Wound Care Recommendations: Offload area as much as possible with using alternat masks/ O2 delivery methods if possible Apply Mepilex Foam on bridge of nose for protection Refer to adult/pediatric pressure ulcer prevention job aid in the clinical policy library Wound Care will follow weekly Discussed plan with: RN: Kelsie Please contact Elaine Steward RN on pager [phone] or the wound care team at [phone] or pager [phone] skin and wound care concerns or questions. * Plan of Care - Sruthi Hanna PT - 06/28/2018 10:34 AM EST PHYSICAL THERAPY CONTACT NOTE: Order received and chart reviewed. Pt with high FiO2 requirement at this time. Will follow up with formal PT evaluation when supplemental O2 needs decrease below 65% FiO2. Please page this underwriter with questions. Sruthi Hanna PT, DPT Pager #[phone] * Plan of Care - Neema Soriano RN - 06/28/2018 4:30 AM EST Problem: Patient Care Overview Goal: Plan of Care Review 06/27/18199906/28/18 0417 Plan of Care Review Progress -- no change Coping/Psychosocial Plan Of Care Reviewed With patient -- OUTCOME EVALUATION NOTE: OUTCOME SUMMARY: Patient alert and oriented. Utilizing high flow mask while awake, 50-55 L/70-80% FiO2, and BiPAP while asleep, FiO2 60-70%. Respiratory rate 30s-40s. Patient able to tolerate only minimal weaning of FiO2. SpO2 low 90s at rest. Desats quickly and significantly with activity and with interruptions inO2 delivery. When ambulating to and from bathroom on non rebreather, patient noted to desat to as low as 70. Infrequent, nonproductive cough. Sinus rhythm 80s-90s at rest, sinus tach 110s with activity. MAP > 65. T max 37.5. Diet advanced to clear liquid. Patient had 2 episodes of liquid stools this shift. Will continue to monitor and inform team of changes. PLAN MOVING FORWARD: Monitor respiratory status and titrate O2 as indicated. INDIVIDUALIZED FALL PREVENTION INTERVENTIONS: Patient-specific fall risk factors per assessment: [current deficits]: Patient at risk to fall related to weakness, hypoxemia, shortness of breath, unfamiliar environment, and the presence of equipment. Assistance [level of assistance required for transfers and ambulation]: Stand by assist for transfers and ambulation Supervision [direct monitoring required during toileting and ADLs]: Independent with ADLs Surveillance [continuous indirect monitoring]: Bed alarm Patient-specific fall prevention interventions for sensory deficits provided, if applicable: [X] No CPG GOAL OUTCOME EVALUATION: Goal: Fall Prevention-Safe Patient Handling 06/27/18199906/28/1819906/28/18400 Lubin Fall Risk History of Falling 0 -- -- Secondary Diagnosis 15 -- -- Ambulatory Aids 0 -- -- Intravenous Therapy/Heparin/Saline Lock 20 -- -- Gait/Transferring 10 -- -- Mental Status 0 -- -- Score 45 -- -- OTHER Lubin Fall Risk High -- -- Restraint Interventions Safety Promotion/Fall Prevention -- -- safety round/check completed Positioning Body Position -- -- independent Activity Activity Type -- -- activity adjusted per tolerance Activity Assistance Provided -- -- assistance, 1 person Assistive Device Utilized -- oxygen -- Goal: Infection Control 06/27/18199906/28/18400 Safety Interventions Isolation Precautions -- droplet precautions maintained Infection Prevention rest/sleep promoted;single patient room provided;visitors restricted/screened -- Coping Strategies Supportive Measures active listening utilized;positive reinforcement provided;relaxation techniquespromoted;verbalization of feelings encouraged -- Problem: Pneumonia (Adult) Goal: Signs and Symptoms of Listed Potential Problems Will be Absent, Minimized or Managed (Pneumonia) Signs and symptoms of listed potential problems will be absent, minimized or managed by discharge/transition of care (reference Pneumonia (Adult) CPG). 06/27/181999 Pneumonia Problems Assessed (Pneumonia) all Problems Present (Pneumonia) respiratory compromise;fluid/electrolyte imbalance * Initial Assessments - Jannette Wells RN - 06/27/2018 11:53 AM EST Office of Care Management Initial Assessment Jannette Wells RN reviewed record and discussed patient with Care Team. Source of Information: Chart review, nursing and provider team. Introduced self/reviewed role; services accepted. Reason for Hospitalization: Reason for Admission as Stated by Patient: short of breath, has the flu Acute hypoxic respiratory failure secondary to influenza A. PMH: Anxiety Disorder, Former Smoker, Depression, LBBB, and Migraines, Hospitalizations Within the Past 30 Days: Transfer from [facility] ICU to [facility] (critical care team) Anticipated Length Of Stay (If known): unknown Current Decision-Making Capacity: self Advance Care Planning: at home; listing both brothers: Will and Abhishek. Current Coping/Education/Information Needs: none Current Functional Ability: assist by staff; O2;tele in [facility]/Critical care Functional Status Prior to Admission: Independent; works/drives Home Environment: 1 level home; no JAYME Social & Family Supports/Community Resources: brothers: Will and Abhishek. She lives alone. Mom has Alzheimer's. Behavioral Health History: Anxiety Substance Use/Abuse: denies Other Pertinent/Service Specific Information: none Health/Prescription Coverage: Primary Insurance: [employer] Secondary Insurance: N/A Primary Care Provider: Catalina Barroso, STEPHANIE [phone] Patient/Caregiver Goals of Treatment: Home no services at this time Potential Needs for Transition of Care: Transportation: Family Anticipated Barriers to Discharge/Special Considerations: none Assessment/Plan: 58 y/o female - admitted from [facility] ICU - Acute hypoxic respiratory failure secondary to influenza A. No services noted at this time. A member of the Care Management team will continue to monitor progress, follow for continuity of care and assist with transition of care planningJc Wells RN (Jonas) Pager [phone] documented in this encounter Plan of Treatment Scheduled Referrals Name Type Priority Associated Diagnoses Orde r Schedule Referral to Physical Therapy Outpatient Referral Routine Physical deconditioning Acute respiratory distress syndrome (ARDS) Acute respiratory failure with hypoxia Ordered: 07/14/2018 documented as of this encounter Procedures Procedure Name Priority Date/Time Associated Diagnosis Comments URINALYSIS MICROSCOPIC EXAM Routine 07/12/2018 11:51 AM EST URINE HOLD Routine 07/12/2018 11:51 AM EST URINALYSIS WITH REFLEX CULTURE Routine 07/12/2018 11:51 AM EST BASIC METABOLIC PANEL Routine 07/10/2018 2:22 AM EST HEMOGRAM Routine 07/08/2018 8:19 AM EST DIFFERENTIAL, AUTOMATED Routine 07/08/2018 8:19 AM EST CBC (WITH DIFF) Routine 07/08/2018 8:19 AM EST BASIC METABOLIC PANEL Routine 07/08/2018 8:19 AM EST HEMOGRAM Routine 07/07/2018 1:37 AM EST DIFFERENTIAL, AUTOMATED Routine 07/07/2018 1:37 AM EST CBC (WITH DIFF) Routine 07/07/2018 1:37 AM EST PHOSPHORUS Routine 07/07/2018 1:37 AM EST MAGNESIUM Routine 07/07/2018 1:37 AM EST BASIC METABOLIC PANEL Routine 07/07/2018 1:37 AM EST EKG 12-LEAD STAT 07/06/2018 8:08 PM EST LBBB (left bundle branch block) EXTUBATE Routine 07/06/2018 12:45 PM EST HEMOGRAM Routine 07/06/2018 2:55 AM EST DIFFERENTIAL, AUTOMATED Routine 07/06/2018 2:55 AM EST CBC (WITH DIFF) Routine 07/06/2018 2:55 AM EST PHOSPHORUS Routine 07/06/2018 2:55 AM EST MAGNESIUM Routine 07/06/2018 2:55 AM EST BASIC METABOLIC PANEL Routine 07/06/2018 2:55 AM EST HEMOGRAM Routine 07/05/2018 2:58 AM EST DIFFERENTIAL, AUTOMATED Routine 07/05/2018 2:58 AM EST CBC (WITH DIFF) Routine 07/05/2018 2:58 AM EST PHOSPHORUS Routine 07/05/2018 2:58 AM EST MAGNESIUM Routine 07/05/2018 2:58 AM EST BASIC METABOLIC PANEL Routine 07/05/2018 2:58 AM EST POTASSIUM Routine 07/04/2018 5:25 AM EST BLOOD GAS ARTERIAL POC Routine 07/04/2018 3:10 AM EST HEMOGRAM Routine 07/04/2018 3:00 AM EST DIFFERENTIAL, AUTOMATED Routine 07/04/2018 3:00 AM EST CBC (WITH DIFF) Routine 07/04/2018 3:00 AM EST PHOSPHORUS Routine 07/04/2018 3:00 AM EST MAGNESIUM Routine 07/04/2018 3:00 AM EST BASIC METABOLIC PANEL Routine 07/04/2018 3:00 AM EST BLOOD GAS ARTERIAL POC Routine 07/03/2018 5:27 PM EST POTASSIUM Routine 07/03/2018 4:40 PM EST BLOOD GAS ARTERIAL POC Routine 07/03/2018 12:14 PM EST XR CHEST ONE VIEW STAT 07/03/2018 12: 00 PM EST POTASSIUM Routine 07/03/2018 8:22 AM EST BLOOD GAS ARTERIAL POC Routine 07/03/2018 8:20 AM EST HEMOGRAM Routine 07/03/2018 2:15 AM EST DIFFERENTIAL, AUTOMATED Routine 07/03/2018 2:15 AM EST CBC (WITH DIFF) Routine 07/03/2018 2:15 AM EST TRIGLYCERIDE Routine 07/03/2018 2:15 AM EST PHOSPHORUS Routine 07/03/2018 2:15 AM EST MAGNESIUM Routine 07/03/2018 2:15 AM EST CK Routine 07/03/2018 2:15 AM EST BASIC METABOLIC PANEL Routine 07/03/2018 2:15 AM EST BLOOD GAS ARTERIAL POC Routine 07/02/2018 3:33 PM EST POTASSIUM Routine 07/02/2018 9:15 AM EST HEMOGRAM Routine 07/02/2018 2:10 AM EST DIFFERENTIAL, AUTOMATED Routine 07/02/2018 2:10 AM EST CBC (WITH DIFF) Routine 07/02/2018 2:10 AM EST TRIGLYCERIDE Routine 07/02/2018 2:10 AM EST PHOSPHORUS Routine 07/02/2018 2:10 AM EST MAGNESIUM Routine 07/02/2018 2:10 AM EST BASIC METABOLIC PANEL Routine 07/02/2018 2:10 AM EST BLOOD GAS ARTERIAL POC Routine 07/01/2018 6:35 PM EST BLOOD GAS ARTERIAL POC Routine 07/01/2018 12:08 PM EST BLOOD GAS ARTERIAL POC Routine 07/01/2018 5:49 AM EST LEGIONELLA CULTURE Routine 07/01/2018 3: 41 AM EST LOWER RESPIRATORY CULTURE STAT 07/01/2018 3:41 AM EST HEMOGRAM Routine 07/01/2018 2:15 AM EST DIFFERENTIAL, AUTOMATED Routine 07/01/2018 2:15 AM EST CBC (WITH DIFF) Routine 07/01/2018 2:15 AM EST PHOSPHORUS Routine 07/01/2018 2:15 AM EST MAGNESIUM Routine 07/01/2018 2:15 AM EST BASIC METABOLIC PANEL Routine 07/01/2018 2:15 AM EST BLOOD GAS ARTERIAL POC Routine 06/30/2018 9:48 PM EST XR CHEST ONE VIEW Routine 06/30/2018 6:4 8 PM EST CK Routine 06/30/2018 6:13 PM EST BLOOD CULTURE STAT 06/30/2018 1:00 PM EST BLOOD CULTURE STAT 06/30/2018 1:00 PM EST BLOOD GAS ARTERIAL POC Routine 06/30/2018 11:33 AM EST POTASSIUM Routine 06/30/2018 9:36 AM EST XR CHEST ONE VIEW Routine 06/30/2018 5:3 9 AM EST HEMOGRAM Routine 06/30/2018 12:26 AM EST DIFFERENTIAL, AUTOMATED Routine 06/30/2018 12:26 AM EST CBC (WITH DIFF) Routine 06/30/2018 12:26 AM EST PHOSPHORUS Routine 06/30/2018 12:26 AM EST MAGNESIUM Routine 06/30/2018 12:26 AM EST BASIC METABOLIC PANEL Routine 06/30/2018 12:26 AM EST POTASSIUM Routine 06/29/2018 10:28 AM EST BLOOD GAS ARTERIAL POC Routine 06/29/2018 6:12 AM EST HEMOGRAM Routine 06/29/2018 12:40 AM EST DIFFERENTIAL, AUTOMATED Routine 06/29/2018 12:40 AM EST CBC (WITH DIFF) Routine 06/29/2018 12:40 AM EST PHOSPHORUS Routine 06/29/2018 12:40 AM EST MAGNESIUM Routine 06/29/2018 12:40 AM EST BASIC METABOLIC PANEL Routine 06/29/2018 12:40 AM EST BLOOD GAS ARTERIAL POC Routine 06/28/2018 6:41 PM EST BLOOD GAS ARTERIAL POC Routine 06/28/2018 4:44 PM EST XR CHEST ONE VIEW STAT 06/28/2018 4:3 6 PM EST INSERT ARTERIAL LINE Routine 06/28/2018 3:37 PM EST POTASSIUM Routine 06/28/2018 10:45 AM EST HEMOGRAM Routine 06/28/2018 5:00 AM EST DIFFERENTIAL, AUTOMATED Routine 06/28/2018 5:00 AM EST CBC (WITH DIFF) Routine 06/28/2018 5:00 AM EST PHOSPHORUS Routine 06/28/2018 5:00 AM EST MAGNESIUM Routine 06/28/2018 5:00 AM EST BASIC METABOLIC PANEL Routine 06/28/2018 5:00 AM EST POCT GLUCOSE Routine 06/27/2018 6:34 PM EST POCT GLUCOSE Routine 06/27/2018 11:31 AM EST POCT GLUCOSE Routine 06/27/2018 7:38 AM EST SCAN, PERIPHERAL BLOOD Routine 06/27/2018 5:10 AM EST HEMOGRAM Routine 06/27/2018 5:10 AM EST DIFFERENTIAL, AUTOMATED Routine 06/27/2018 5:10 AM EST CBC (WITH DIFF) Routine 06/27/2018 5:10 AM EST PHOSPHORUS Routine 06/27/2018 5:10 AM EST MAGNESIUM Routine 06/27/2018 5:10 AM EST BASIC METABOLIC PANEL Routine 06/27/2018 5:10 AM EST POCT GLUCOSE Routine 06/27/2018 5:02 AM EST POCT GLUCOSE Routine 06/26/2018 11:14 PM EST POCT GLUCOSE Routine 06/26/2018 8:23 PM EST BLOOD GAS ARTERIAL POC Routine 06/26/2018 6:33 PM EST POCT GLUCOSE Routine 06/26/2018 5:06 PM EST XR CHEST ONE VIEW STAT 06/26/2018 2:4 8 PM EST URINE CULTURE STAT 06/26/2018 12:26 PM EST URINE HOLD STAT 06/26/2018 12:25 PM EST LEGIONELLA URINARY ANTIGEN STAT 06/26/2018 12:25 PM EST RESPIRATORY PANEL PCR STAT 06/26/2018 11:40 AM EST EKG 12-LEAD STAT 06/26/2018 11:25 AM EST Acute on chronic respiratory failure with hypoxia BLOOD GAS ARTERIAL POC Routine 06/26/2018 11:08 AM EST HEMOGRAM STAT 06/26/2018 11:05 AM EST DIFFERENTIAL, AUTOMATED STAT 06/26/2018 11:05 AM EST GOLD TUBE HOLD STAT 06/26/2018 11:05 AM EST LACTATE, WHOLE BLOOD STAT 06/26/2018 11:05 AM EST BLOOD CULTURE STAT 06/26/2018 11:05 AM EST PROTHROMBIN TIME STAT 06/26/2018 11:0 5 AM EST CBC (WITH DIFF) STAT 06/26/2018 11:05 AM EST PHOSPHORUS STAT 06/26/2018 11:05 AM EST MAGNESIUM STAT 06/26/2018 11:05 AM EST HEPATIC FUNCTION PANEL STAT 06/26/2018 11:05 AM EST BASIC METABOLIC PANEL STAT 06/26/2018 11:05 AM EST documented in this encounter Results * (ABNORMAL) Urinalysis Microscopic Exam (07/12/2018 11:51 AM EST) RBC, Urine 3 0 - 4 /HPF [facility] WBC, Urine 4 0 - 5 /HPF [facility] Bacteria, Urine Rare(A) None /HPF [facility] Squamous Epithelial Cells Raw Data, Urine 13(H) <=4 /HPF [facility] Hyaline Casts, Urine 3(H) 0 - 2 /LPF [facility] Calcium Oxalate Crystal, Urine Moderate(A ) None /HPF [facility] Urine specimen obtained by clean catch procedure (specimen) 07/12/2018 11:51 AM EST 07/12/2018 12:17 PM EST Narrative Resulting Agency Comment Spec In Lab Carol Ann Ingram MD URINE ORDERABLES Performing Organization Address [facility] Co de Phone Number [facility] [place] [address] * Urine Hold (07/12/2018 11:51 AM EST) Hold, Urine Sample in lab. [facility] Urine specimen (specimen) Urine / Unknown 07/12/2018 11:51 AM EST 07/12/2018 12:17 PM EST Carol Ann Ingram MD URINE ORDERABLES Performing Organization Address [facility] Co de Phone Number [facility] [place] [address] * (ABNORMAL) Urinalysis with reflex Culture (07/12/2018 11:51 AM EST) Glucose, Urine Dipstick Negative Negative mg/dL [facility] Protein, Urine Dipstick Negative Negative mg/dL [facility] Bilirubin, Urine Dipstick Negative Negative mg/dL [facility] Comment: Clinical correlation required for positive Urine Bilirubin results as false positive may occur with some drugs and drug related products. If a false positive is suspected a serum total bilirubin should be considered if clinically indicated. Urobilinogen, Urine Dipstick Normal Normal mg/dL [facility] pH, Urn (dipstick) 5.0 5.0 - 8.0 [facility] Blood, Urine Dipstick Negative Negative mg/dL [facility] Ketone, Urine Dipstick 5(A) Negative mg/dL [facility] Nitrite, Urine Dipstick Negative Negative [facility] Leukocytes, Urine Dipstick Trace(A) Negative [facility] Appearance, Urine Dipstick Clear Clear [facility] Specific [place] Urine Automated 1.024 1.002 - 1.030 [facility] Color, Urine Dipstick Yellow Yellow [facility] Reflex to Culture No [facility] Urine specimen obtained by clean catch procedure (specimen) 07/12/2018 11:51 AM EST 07/12/2018 12:17 PM EST Narrative Resulting Agency Comment Spec In Lab Carol Ann Ingram MD URINE ORDERABLES [facility] [place] [address] * (ABNORMAL) Basic Metabolic Panel (non-fasting) (07/10/2018 2:22 AM EST) Glucose 89 65 - 199 mg/dL [facility] Comment:Diabetes: >=200 mg/d L plus symptoms Blood Urea Nitrogen 18 8 - 18 mg/dL [facility] Creatinine 0.54(L) 0.70 - 1.20 mg/dL [facility] Sodium 138 135 - 145 mmol/L [facility] Potassium 3.7 3.5 - 5.0 mmol/L [facility] Comment: Please note: ??Patients with WBC >100,000 may have falsely elevated Potassium levels. ??For accurate Potassium quantification in these patients send serum separator tube (gold top) for subsequent determinations. ??Contact the Clinical Chemistry Laboratory if there are any questions. Chloride 102 98 - 107 mmol/L [facility] Carbon Dioxide 26 22 - 31 mmol/L [facility] Anion Gap 10 5 - 15 mmol/L [facility] Calcium 8.6 8.5 - 10.5 mg/dL [facility] Est Glomerular Filtration Rate 103 >=60 mL/min/1. 73 m?? [facility] Comment: The eGFR was calculated using the CKD-EPI equation. As with all creatinine based estimates of kidney function, eGFR values calculated with the CKD-EPI equation are not accurate in patients with acute kidney failure, extremes of body mass or the acutely ill. [email or web address] eGFR 119 >=60 mL/min/1. 73 m?? [facility] Comment: The eGFR was calculated using the CKD-EPI equation. As with all creatinine based estimates of kidney function, eGFR values calculated with the CKD-EPI equation are not accurate in patients with acute kidney failure, extremes of body mass or the acutely ill. [email or web address] Blood specimen (specimen) 07/10/2018 2:22 AM EST 07/10/2018 2:44 AM EST Narrative Resulting Agency Comment Spec In Lab Korey Hernandez MD CHEMISTRY ORDERABLE S [facility] [place] [address] * (ABNORMAL) Differential, Automated (07/08/2018 8:19 AM EST) Neutrophil % 74.9 % [facility] Neutrophil Absolute 6.44(H) 1.70 - 6.10 x10(3)/mc L [facility] Lymph % 17.2 % [facility] Lymphocytes Abs 1.5 0.9 - 3.2 x10(3)/mc L [facility] Monocyte % 6.5 % [facility] Monocyte Abs 0.6 0.3 - 0.9 x10(3)/ L [facility] Eos % 0.6 % [facility] Eosinophils Abs 0.0 0.0 - 0.4 x10(3)/[facility] Basophil % 0.5 % [facility] Baso Absolute 0.0 0.0 - 0.1 x10(3)/[facility] Immature Gran % 0.30 % [facility] Comment: Immature granulocytes(IG's)percentage and absolute count will include metamyelocytes, myelocytes, and promyelocytes. Blood smears from CBCs yielding IG's will be scanned manually for concordance. If this scan disagrees with the automated IG or if promyelocytes are noted, a manual differential will be performed. Immature Gran Absolute 0.03 0.00 - 0.04 x10(3)/[facility] Blood specimen (specimen) 07/08/2018 8:19 AM EST 07/08/2018 8:22 AM EST Narrative Resulting Agency Comment Spec In Lab Carol Ann Ingram MD HEMATOLOGY ORDER MATTI [facility] [place] [address] * (ABNORMAL) Hemogram (07/08/2018 8:19 AM EST) White Blood Cell 8.6 4.0 - 9.5 x10(3)/[facility] Red Blood Cell 3.40(L) 4.00 - 5.21 x10(6)/ L [facility] Hemoglobin 9.8(L) 11.7 - 15.5 gm/dL [facility] Hematocrit 30.6(L) 35.7 - 45.8 % [facility] Mean Cell Volume 90.0 82.6 - 94.4 fL [facility] Mean Cell Hemoglobin 28.8 27.1 - 32.0 pg [facility] Mean Cell Hemoglobin Concentration 32.0 31.7 - 35.0 gm/dL [facility] Platelet 376(H) 145 - 357 x10(3)/mc L [facility] RDW Standard Deviation 45.9 37.0 - 46.0 fL [facility] RDW coefficient of variation 14.0 11.5 - 14.1 % [facility] Mean Platelet Volume 9.2 7.6 - 12.9 fL [facility] NRBC% auto 0.0 % [facility] NRBC Absolute 0.000 0.000 - 0.000 x10(3)/mc L [facility] Blood specimen (specimen) 07/08/2018 8:19 AM EST 07/08/2018 8:22 AM EST Narrative Resulting Agency Comment Spec In Lab Carol Ann Ingram MD HEMATOLOGY ORDER MATTI Performing Organization Address City/State/[facility] Co de Phone Number [facility] [place] [address] * (ABNORMAL) Basic Metabolic Panel (non-fasting) (07/08/2018 8:19 AM EST) Glucose 102 65 - 199 mg/dL [facility] Comment:Diabetes: >=200 mg/d L plus symptoms Blood Urea Nitrogen 21(H) 8 - 18 mg/dL [facility] Creatinine 0.51(L) 0.70 - 1.20 mg/dL [facility] Sodium 144 135 - 145 mmol/L [facility] Potassium 3.7 3.5 - 5.0 mmol/L [facility] Comment: Please note: ??Patients with WBC >100,000 may have falsely elevated Potassium levels. ??For accurate Potassium quantification in these patients send serum separator tube (gold top) for subsequent determinations. ??Contact the Clinical Chemistry Laboratory if there are any questions. Chloride 103 98 - 107 mmol/L [facility] Carbon Dioxide 28 22 - 31 mmol/L [facility] Anion Gap 13 5 - 15 mmol/L [facility] Calcium 8.8 8.5 - 10.5 mg/dL [facility] Est Glomerular Filtration Rate 105 >=60 mL/min/1. 73 m?? [facility] Comment: The eGFR was calculated using the CKD-EPI equation. As with all creatinine based estimates of kidney function, eGFR values calculated with the CKD-EPI equation are not accurate in patients with acute kidney failure, extremes of body mass or the acutely ill. [email or web address] eGFR 121 >=60 mL/min/1. 73 m?? [facility] Comment: The eGFR was calculated using the CKD-EPI equation. As with all creatinine based estimates of kidney function, eGFR values calculated with the CKD-EPI equation are not accurate in patients with acute kidney failure, extremes of body mass or the acutely ill. [email or web address] Blood specimen (specimen) 07/08/2018 8:19 AM EST 07/08/2018 8:22 AM EST Narrative Resulting Agency Comment Spec In Lab Carol Ann Ingram MD CHEMISTRY ORDERA BLES [facility] [place] [address] * (ABNORMAL) Differential, Automated (07/07/2018 1:37 AM EST) Neutrophil % 76.8 % [facility] Neutrophil Absolute 10.45(H) 1.70 - 6.10 x10(3)/mc L [facility] Lymph % 15.1 % [facility] Lymphocytes Abs 2.1 0.9 - 3.2 x10(3)/mc L [facility] Monocyte % 7.2 % [facility] Monocyte Abs 1.0(H) 0.3 - 0.9 x10(3)/mc L [facility] Eos % 0.1 % [facility] Eosinophils Abs 0.0 0.0 - 0.4 x10(3)/[facility] Basophil % 0.4 % [facility] Baso Absolute 0.0 0.0 - 0.1 x10(3)/[facility] Immature Gran % 0.40 % [facility] Comment: Immature granulocytes(IG's)percentage and absolute count will include metamyelocytes, myelocytes, and promyelocytes. Blood smears from CBCs yielding IG's will be scanned manually for concordance. If this scan disagrees with the automated IG or if promyelocytes are noted, a manual differential will be performed. Immature Gran Absolute 0.06(H) 0.00 - 0.04 x10(3)/[facility] Blood specimen (specimen) 07/07/2018 1:37 AM EST 07/07/2018 2:15 AM EST Narrative Resulting Agency Comment Spec In Lab Wendy Alan STATION MASTER HEMATOLOGY ORDERAB LES Performing Organization Address City/State/[facility] Co de Phone Number [facility] [place] [phone] * (ABNORMAL) Hemogram (07/07/2018 1:37 AM EST) White Blood Cell 13.6(H) 4.0 - 9.5 x10(3)/[facility] Red Blood Cell 3.11(L) 4.00 - 5.21 x10(6)/[facility] Hemoglobin 9.0(L) 11.7 - 15.5 gm/dL [facility] Hematocrit 28.4(L) 35.7 - 45.8 % [facility] Mean Cell Volume 91.3 82.6 - 94.4 fL [facility] Mean Cell Hemoglobin 28.9 27.1 - 32.0 pg [facility] Mean Cell Hemoglobin Concentration 31.7 31.7 - 35.0 gm/dL [facility] Platelet 410(H) 145 - 357 x10(3)/[facility] RDW Standard Deviation 47.4(H) 37.0 - 46.0 fL [facility] RDW coefficient of variation 14.2(H) 11.5 - 14.1 % [facility] Mean Platelet Volume 9.8 7.6 - 12.9 fL [facility] NRBC% auto 0.0 % [facility] NRBC Absolute 0.000 0.000 - 0.000 x10(3)/mc L [facility] Blood specimen (specimen) 07/07/2018 1:37 AM EST 07/07/2018 2:15 AM EST Narrative Resulting Agency Comment Spec In Lab Wendy Slaughter Alan STATION MASTER HEMATOLOGY ORDERAB LES Performing Organization Address [facility] [place] [address] * Phosphorus (07/07/2018 1:37 AM EST) Phosphorus 3.8 2.5 - 4.5 mg/dL [facility] Blood specimen (specimen) 07/07/2018 1:37 AM EST 07/07/2018 2:15 AM EST Narrative Resulting Agency Comment Spec In Lab Wendy Slaughter Alan STATION MASTER CHEMISTRY ORDERABL ES Performing Organization Address [facility] de Phone Number [facility] [place] [address] * Magnesium (07/07/2018 1:37 AM EST) Magnesium 0.93 0.69 - 1.07 mmol/L [facility] Blood specimen (specimen) 07/07/2018 1:37 AM EST 07/07/2018 2:15 AM EST Narrative Resulting Agency Comment Spec In Lab Wendy Slaughter Alan STATION MASTER CHEMISTRY ORDERABL ES Performing Organization Address [facility] Co de Phone Number [facility] [place] [address] * (ABNORMAL) Basic Metabolic Panel (non-fasting) (07/07/2018 1:37 AM EST) Glucose 100 65 - 199 mg/dL [facility] Comment:Diabetes: >=200 mg/d L plus symptoms Blood Urea Nitrogen 19(H) 8 - 18 mg/dL [facility] Creatinine 0.47(L) 0.70 - 1.20 mg/dL [facility] Sodium 142 135 - 145 mmol/L [facility] Potassium 3.6 3.5 - 5.0 mmol/L [facility] Comment: Please note: ??Patients with WBC >100,000 may have falsely elevated Potassium levels. ??For accurate Potassium quantification in these patients send serum separator tube (gold top) for subsequent determinations. ??Contact the Clinical Chemistry Laboratory if there are any questions. Chloride 100 98 - 107 mmol/L [facility] Carbon Dioxide 30 22 - 31 mmol/L [facility] Anion Gap 12 5 - 15 mmol/L [facility] Calcium 8.6 8.5 - 10.5 mg/dL [facility] Est Glomerular Filtration Rate 107 >=60 mL/min/1. 73 m?? [facility] Comment: The eGFR was calculated using the CKD-EPI equation. As with all creatinine based estimates of kidney function, eGFR values calculated with the CKD-EPI equation are not accurate in patients with acute kidney failure, extremes of body mass or the acutely ill. [email or web address] eGFR 124 >=60 mL/min/1. 73 m?? [facility] Comment: The eGFR was calculated using the CKD-EPI equation. As with all creatinine based estimates of kidney function, eGFR values calculated with the CKD-EPI equation are not accurate in patients with acute kidney failure, extremes of body mass or the acutely ill. [email or web address] Blood specimen (specimen) 07/07/2018 1:37 AM EST 07/07/2018 2:15 AM EST Narrative Resulting Agency Comment Spec In Lab Wendy Slaughter Alan STATION MASTER CHEMISTRY ORDERABL ES Performing Organization Address [facility] Co de Phone Number [facility] [place] [address] * EKG 12 Lead (07/06/2018 8:08 PM EST) Ventricular rate 107 BPM MUSE SYSTEM Atrial Rate 107 BPM MUSE SYSTEM P-R Interval 154 ms MUSE SYSTEM QRS Duration 138 ms MUSE SYSTEM Q-T Interval 354 ms MUSE SYSTEM QTC Calculated (Bezet) 472 ms MUSE SYSTEM Calculated P [place] 50 degrees MUSE SYSTEM Calculated R [place] 0 degrees MUSE SYSTEM Calculated T [place] 127 degrees MUSE SYSTEM INTERPRETATION Sinus tachycardia Left bundle branch block Abnormal ECG When compared with ECG of 26-JUN-2018 11:25, No significant change was found Confirmed by Sharif MAY MD, Chidi ([id number]) on 07/07/2018 7:51:27 AM MUSE SYSTEM 07/06/2018 8:08 PM EST 07/07/2018 7:51 AM EST Nir Leal MD ECG ORDERABLES Performing Organization Address City/[facility]/ZIP Co de Phone Number MUSE SYSTEM * (ABNORMAL) Differential, Automated (07/06/2018 2:55 AM EST) Neutrophil % 76.9 % [facility] Neutrophil Absolute 8.77(H) 1.70 - 6.10 x10(3)/mc L [facility] Lymph % 14.5 % [facility] Lymphocytes Abs 1.6 0.9 - 3.2 x10(3)/mc L [facility] Monocyte % 6.9 % [facility] Monocyte Abs 0.8 0.3 - 0.9 x10(3)/mc L [facility] Eos % 0.4 % [facility] Eosinophils Abs 0.0 0.0 - 0.4 x10(3)/mc L [facility] Basophil % 0.4 % [facility] Baso Absolute 0.0 0.0 - 0.1 x10(3)/mc L [facility] Immature Gran % 0.90 % [facility] Comment: Immature granulocytes(IG's)percentage and absolute count will include metamyelocytes, myelocytes, and promyelocytes. Blood smears from CBCs yielding IG's will be scanned manually for concordance. If this scan disagrees with the automated IG or if promyelocytes are noted, a manual differential will be performed. Immature Gran Absolute 0.10(H) 0.00 - 0.04 x10(3)/mc L [facility] Blood specimen (specimen) 07/06/2018 2:55 AM EST 07/06/2018 3:02 AM EST Narrative Resulting Agency Comment Spec In Lab Wendy Alan STATION MASTER HEMATOLOGY ORDERAB LES Performing Organization Address City/State/[facility] Co de Phone Number [facility] [place] [address] * (ABNORMAL) Hemogram (07/06/2018 2:55 AM EST) White Blood Cell 11.4(H) 4.0 - 9.5 x10(3)/ L [facility] Red Blood Cell 2.93(L) 4.00 - 5.21 x10(6)/mc L [facility] Hemoglobin 8.4(L) 11.7 - 15.5 gm/dL [facility] Hematocrit 26.6(L) 35.7 - 45.8 % [facility] Mean Cell Volume 90.8 82.6 - 94.4 fL [facility] Mean Cell Hemoglobin 28.7 27.1 - 32.0 pg [facility] Mean Cell Hemoglobin Concentration 31.6(L) 31.7 - 35.0 gm/dL [facility] Platelet 296 145 - 357 x10(3)/mc L [facility] RDW Standard Deviation 45.8 37.0 - 46.0 fL [facility] RDW coefficient of variation 13.8 11.5 - 14.1 % [facility] Mean Platelet Volume 9.2 7.6 - 12.9 fL [facility] NRBC% auto 0.0 % [facility] NRBC Absolute 0.000 0.000 - 0.000 x10(3)/mc L [facility] Blood specimen (specimen) 07/06/2018 2:55 AM EST 07/06/2018 3:02 AM EST Narrative Resulting Agency Comment Spec In Lab Wendy Slaughter Alan STATION MASTER HEMATOLOGY ORDERAB LES Performing Organization Address [facility]/ZIP Co de Phone Number [facility] [place] [address] * Phosphorus (07/06/2018 2:55 AM EST) Phosphorus 3.9 2.5 - 4.5 mg/dL [facility] Blood specimen (specimen) 07/06/2018 2:55 AM EST 07/06/2018 3:01 AM EST Narrative Resulting Agency Comment Spec In Lab Wendy Slaughter Alan STATION MASTER CHEMISTRY ORDERABL ES Performing Organization Address [facility] Co de Phone Number [facility] [place] [address] * Magnesium (07/06/2018 2:55 AM EST) Magnesium 0.87 0.69 - 1.07 mmol/L [facility] Blood specimen (specimen) 07/06/2018 2:55 AM EST 07/06/2018 3:01 AM EST Narrative Resulting Agency Comment Spec In Lab Wendy Slaughter Alan STATION MASTER CHEMISTRY ORDERABL ES Performing Organization Address [facility] Co de Phone Number [facility] [place] [address] * (ABNORMAL) Basic Metabolic Panel (non-fasting) (07/06/2018 2:55 AM EST) Glucose 120 65 - 199 mg/dL [facility] Comment:Diabetes: >=200 mg/d L plus symptoms Blood Urea Nitrogen 22(H) 8 - 18 mg/dL [facility] Creatinine 0.49(L) 0.70 - 1.20 mg/dL [facility] Sodium 141 135 - 145 mmol/L [facility] Potassium 4.0 3.5 - 5.0 mmol/L [facility] Comment: Please note: ??Patients with WBC >100,000 may have falsely elevated Potassium levels. ??For accurate Potassium quantification in these patients send serum separator tube (gold top) for subsequent determinations. ??Contact the Clinical Chemistry Laboratory if there are any questions. Chloride 99 98 - 107 mmol/L [facility] Carbon Dioxide 32(H) 22 - 31 mmol/L [facility] Anion Gap 10 5 - 15 mmol/L [facility] Calcium 8.8 8.5 - 10.5 mg/dL [facility] Est Glomerular Filtration Rate 106 >=60 mL/min/1. 73 m?? [facility] Comment: The eGFR was calculated using the CKD-EPI equation. As with all creatinine based estimates of kidney function, eGFR values calculated with the CKD-EPI equation are not accurate in patients with acute kidney failure, extremes of body mass or the acutely ill. [email or web address] eGFR 123 >=60 mL/min/1. 73 m?? [facility] Comment: The eGFR was calculated using the CKD-EPI equation. As with all creatinine based estimates of kidney function, eGFR values calculated with the CKD-EPI equation are not accurate in patients with acute kidney failure, extremes of body mass or the acutely ill. [email or web address] Blood specimen (specimen) 07/06/2018 2:55 AM EST 07/06/2018 3:01 AM EST Narrative Resulting Agency Comment Spec In Lab Wendy Alan APRN CHEMISTRY ORDERABL ES [facility] [place] [address] * (ABNORMAL) Differential, Automated (07/05/2018 2:58 AM EST) Neutrophil % 78.6 % [facility] Neutrophil Absolute 6.94(H) 1.70 - 6.10 x10(3)/ L [facility] Lymph % 12.9 % [facility] Lymphocytes Abs 1.1 0.9 - 3.2 x10(3)/ L [facility] Monocyte % 6.5 % [facility] Monocyte Abs 0.6 0.3 - 0.9 x10(3)/[facility] Eos % 0.9 % [facility] Eosinophils Abs 0.1 0.0 - 0.4 x10(3)/[facility] Basophil % 0.3 % [facility] Baso Absolute 0.0 0.0 - 0.1 x10(3)/ L [facility] Immature Gran % 0.80 % [facility] Comment: Immature granulocytes(IG's)percentage and absolute count will include metamyelocytes, myelocytes, and promyelocytes. Blood smears from CBCs yielding IG's will be scanned manually for concordance. If this scan disagrees with the automated IG or if promyelocytes are noted, a manual differential will be performed. Immature Gran Absolute 0.07(H) 0.00 - 0.04 x10(3)/mc L [facility] Blood specimen (specimen) 07/05/2018 2:58 AM EST 07/05/2018 3:04 AM EST Narrative Resulting Agency Comment Spec In Lab Wendy Slaughter Alan STATION MASTER HEMATOLOGY ORDERAB LES Performing Organization Address City/[facility]/ZIP Co de Phone Number [facility] [place] [address] * (ABNORMAL) Hemogram (07/05/2018 2:58 AM EST) White Blood Cell 8.8 4.0 - 9.5 x10(3)/ L [facility] Red Blood Cell 3.03(L) 4.00 - 5.21 x10(6)/mc L [facility] Hemoglobin 9.0(L) 11.7 - 15.5 gm/dL [facility] Hematocrit 27.7(L) 35.7 - 45.8 % [facility] Mean Cell Volume 91.4 82.6 - 94.4 fL [facility] Mean Cell Hemoglobin 29.7 27.1 - 32.0 pg [facility] Mean Cell Hemoglobin Concentration 32.5 31.7 - 35.0 gm/dL [facility] Platelet 302 145 - 357 x10(3)/[facility] RDW Standard Deviation 46.3(H) 37.0 - 46.0 fL [facility] RDW coefficient of variation 13.7 11.5 - 14.1 % [facility] Mean Platelet Volume 9.5 7.6 - 12.9 fL [facility] NRBC% auto 0.0 % [facility] NRBC Absolute 0.000 0.000 - 0.000 x10(3)/[facility] Blood specimen (specimen) 07/05/2018 2:58 AM EST 07/05/2018 3:04 AM EST Narrative Resulting Agency Comment Spec In Lab Wendy Slaughter Alan STATION MASTER HEMATOLOGY ORDERAB LES [facility] [place] [address] * Phosphorus (07/05/2018 2:58 AM EST) Pathologist [facility] Phosphorus 3.9 2.5 - 4.5 mg/dL [facility] Blood specimen (specimen) 07/05/2018 2:58 AM EST 07/05/2018 3:04 AM EST Narrative Resulting Agency Comment Spec In Lab Wendy Alan STATION MASTER CHEMISTRY ORDERABL ES Performing Organization Address City/[facility]/ZIP Co de Phone Number [facility] [place] [address] * Magnesium (07/05/2018 2:58 AM EST) Magnesium 0.80 0.69 - 1.07 mmol/L [facility] Blood specimen (specimen) 07/05/2018 2:58 AM EST 07/05/2018 3:04 AM EST Narrative Resulting Agency Comment Spec In Lab Wendy Alan STATION MASTER CHEMISTRY ORDERABL ES Performing Organization Address [facility] Co de Phone Number [facility] [place] [address] * (ABNORMAL) Basic Metabolic Panel (non-fasting) (07/05/2018 2:58 AM EST) Pathologist [facility] Glucose 136 65 - 199 mg/dL [facility] Comment:Diabetes: >=200 mg/d L plus symptoms Blood Urea Nitrogen 24(H) 8 - 18 mg/dL [facility] Comment:result rechecked-[facility] Creatinine 0.44(L) 0.70 - 1.20 mg/dL [facility] Sodium 139 135 - 145 mmol/L [facility] Potassium 4.0 3.5 - 5.0 mmol/L [facility] Comment: Please note: ??Patients with WBC >100,000 may have falsely elevated Potassium levels. ??For accurate Potassium quantification in these patients send serum separator tube (gold top) for subsequent determinations. ??Contact the Clinical Chemistry Laboratory if there are any questions. Chloride 97(L) 98 - 107 mmol/L [facility] Carbon Dioxide 32(H) 22 - 31 mmol/L [facility] Anion Gap 10 5 - 15 mmol/L [facility] Calcium 8.7 8.5 - 10.5 mg/dL [facility] Est Glomerular Filtration Rate 110 >=60 mL/min/1. 73 m?? [facility] Comment: The eGFR was calculated using the CKD-EPI equation. As with all creatinine based estimates of kidney function, eGFR values calculated with the CKD-EPI equation are not accurate in patients with acute kidney failure, extremes of body mass or the acutely ill. [email or web address] eGFR 127 >=60 mL/min/1. 73 m?? [facility] Comment: The eGFR was calculated using the CKD-EPI equation. As with all creatinine based estimates of kidney function, eGFR values calculated with the CKD-EPI equation are not accurate in patients with acute kidney failure, extremes of body mass or the acutely ill. [email or web address] Blood specimen (specimen) 07/05/2018 2:58 AM EST 07/05/2018 3:04 AM EST Narrative Resulting Agency Comment Spec In Lab Wendy Alan APRN CHEMISTRY ORDERABL ES Performing Organization Address [facility] Co de Phone Number [facility] [place] [address] * Potassium (07/04/2018 5:25 AM EST) [facility] Signature Potassium 4.5 3.5 - 5.0 mmol/L [facility] Comment: Please note: ??Patients with WBC >100,000 may have falsely elevated Potassium levels. ??For accurate Potassium quantification in these patients send serum separator tube (gold top) for subsequent determinations. ??Contact the Clinical Chemistry Laboratory if there are any questions. Blood specimen (specimen) 07/04/2018 5:25 AM EST 07/04/2018 5:37 AM EST Narrative Resulting Agency Comment Spec In Lab Vipin Flower MD CHEMISTRY ORDERABLES Performing Organization Address [facility] Co de Phone Number [facility] [place] [address] * (ABNORMAL) BLOOD GAS 2 ARTERIAL (07/04/2018 3:10 AM EST) pH, Arterial 7.49(H) 7.35 - 7.45 [facility] PCO2, Arterial 43 35 - 45 mmHg [facility] PO2, Arterial 72(L) 85 - 104 mmHg [facility] Bicarbonate, Arterial 31.7(H) 20.0 - 26.0 mmol/L [facility] Base Excess, Arterial 8.5(H) -3.0 - 3.0 mmol/L [facility] Hgb Blood Gas 5.8(Criti bela) 11.7 - 15.5 gm/dL [facility] Oxyhemoglobin, Arterial 91.9(L) 94.0 - 97.0 % [facility] Carboxyhemoglo bin, Arterial 1.3 % [facility] Comment: Nonsmokers: 0.5-1.5% COHB Smokers: Variable, but usually less than 10% Toxic: 20-30% COHB Lethal: Greater than 60% COHB Methemoglobin, Arterial 0.6 <=1.5 % [facility] Na Whole Blood 135 135 - 145 mmol/L [facility] K Whole Blood 3.7 3.5 - 5.0 mmol/L [facility] Comment: Please note: Patients with WBC >100,000 may have falsely elevated Potassium levels. Contact the Clinical Chemistry Laboratory if there are any questions. ICa Whole Blood 1.12(L) 1.15 - 1.33 mmol/L [facility] Comment: Note: ??Total bilirubin higher than 20 mg/dL may lead to falsely low ionized calcium. CL Whole Blood 100 98 - 107 mmol/L [facility] Gluc Whole Bld 122 65 - 199 mg/dL [facility] Comment:Diabetes: >=200 mg/d L plus symptoms. Lactate WB 0.8 0.5 - 2.2 mmol/L [facility] FIO2 Art 40 % [facility] PF Ratio Art 180 [facility] Temp Art 37.7 Celsius [facility] Blood specimen (specimen) 07/04/2018 3:10 AM EST 07/04/2018 3:10 AM EST Vipin Flower MD POINT OF CARE TEST O RDERABLES [facility] [place] [address] * (ABNORMAL) Differential, Automated (07/04/2018 3:00 AM EST) Neutrophil % 75.9 % [facility] Neutrophil Absolute 4.58 1.70 - 6.10 x10(3)/ L [facility] Lymph % 13.9 % [facility] Lymphocytes Abs 0.8(L) 0.9 - 3.2 x10(3)/[facility] Monocyte % 5.6 % [facility] Monocyte Abs 0.3 0.3 - 0.9 x10(3)/[facility] Eos % 2.7 % [facility] Eosinophils Abs 0.2 0.0 - 0.4 x10(3)/[facility] Basophil % 0.2 % [facility] Baso Absolute 0.0 0.0 - 0.1 x10(3)/[facility] Immature Gran % 1.70 % [facility] Comment: Immature granulocytes(IG's)percentage and absolute count will include metamyelocytes, myelocytes, and promyelocytes. Blood smears from CBCs yielding IG's will be scanned manually for concordance. If this scan disagrees with the automated IG or if promyelocytes are noted, a manual differential will be performed. Immature Gran Absolute 0.10(H) 0.00 - 0.04 x10(3)/ L [facility] Blood specimen (specimen) 07/04/2018 3:00 AM EST 07/04/2018 3:13 AM EST Narrative Resulting Agency Comment Spec In Lab Wendy Alan APRN HEMATOLOGY ORDERAB LES [facility] [place] [address] * (ABNORMAL) Hemogram (07/04/2018 3:00 AM EST) [facility] White Blood Cell 6.0 4.0 - 9.5 x10(3)/mc L [facility] Red Blood Cell 3.02(L) 4.00 - 5.21 x10(6)/mc L [facility] Hemoglobin 9.0(L) 11.7 - 15.5 gm/dL [facility] Hematocrit 27.2(L) 35.7 - 45.8 % [facility] Mean Cell Volume 90.1 82.6 - 94.4 fL [facility] Mean Cell Hemoglobin 29.8 27.1 - 32.0 pg [facility] Mean Cell Hemoglobin Concentration 33.1 31.7 - 35.0 gm/dL [facility] Platelet 269 145 - 357 x10(3)/mc L [facility] RDW Standard Deviation 45.1 37.0 - 46.0 fL [facility] RDW coefficient of variation 13.6 11.5 - 14.1 % [facility] Mean Platelet Volume 9.4 7.6 - 12.9 fL [facility] NRBC% auto 0.0 % [facility] NRBC Absolute 0.000 0.000 - 0.000 x10(3)/mc L [facility] Blood specimen (specimen) 07/04/2018 3:00 AM EST 07/04/2018 3:13 AM EST Narrative Resulting Agency Comment Spec In Lab Wendy Alan STATION MASTER HEMATOLOGY ORDERAB LES [facility] [place] [address] * Phosphorus (07/04/2018 3:00 AM EST) Phosphorus 3.2 2.5 - 4.5 mg/dL [facility] Blood specimen (specimen) 07/04/2018 3:00 AM EST 07/04/2018 3:13 AM EST Narrative Resulting Agency Comment Spec In Lab Wendy Alan STATION MASTER CHEMISTRY ORDERABL ES Performing Organization Address [facility] de Phone Number [facility] [place] [address] * Magnesium (07/04/2018 3:00 AM EST) Pathologist [facility] Magnesium 0.69 0.69 - 1.07 mmol/L [facility] Blood specimen (specimen) 07/04/2018 3:00 AM EST 07/04/2018 3:13 AM EST Narrative Resulting Agency Comment Spec In Lab Wendy Alan STATION MASTER CHEMISTRY ORDERABL ES Performing Organization Address [facility] Co de Phone Number [facility] [place] [address] * (ABNORMAL) Basic Metabolic Panel (non-fasting) (07/04/2018 3:00 AM EST) Pathologist [facility] Glucose 124 65 - 199 mg/dL [facility] Comment:Diabetes: >=200 mg/d L plus symptoms Blood Urea Nitrogen 17 8 - 18 mg/dL [facility] Comment:Result rechecked.RR Creatinine 0.43(L) 0.70 - 1.20 mg/dL [facility] Sodium 139 135 - 145 mmol/L [facility] Potassium 4.0 3.5 - 5.0 mmol/L [facility] Comment: Please note: ??Patients with WBC >100,000 may have falsely elevated Potassium levels. ??For accurate Potassium quantification in these patients send serum separator tube (gold top) for subsequent determinations. ??Contact the Clinical Chemistry Laboratory if there are any questions. Chloride 98 98 - 107 mmol/L [facility] Carbon Dioxide 32(H) 22 - 31 mmol/L [facility] Anion Gap 9 5 - 15 mmol/L [facility] Calcium 8.2(L) 8.5 - 10.5 mg/dL [facility] Est Glomerular Filtration Rate 111 >=60 mL/min/1. 73 m?? [facility] Comment: The eGFR was calculated using the CKD-EPI equation. As with all creatinine based estimates of kidney function, eGFR values calculated with the CKD-EPI equation are not accurate in patients with acute kidney failure, extremes of body mass or the acutely ill. [email or web address] eGFR 128 >=60 mL/min/1. 73 m?? [facility] Comment: The eGFR was calculated using the CKD-EPI equation. As with all creatinine based estimates of kidney function, eGFR values calculated with the CKD-EPI equation are not accurate in patients with acute kidney failure, extremes of body mass or the acutely ill. [email or web address] Blood specimen (specimen) 07/04/2018 3:00 AM EST 07/04/2018 3:13 AM EST Narrative Resulting Agency Comment Spec In Lab Wendy Alan APRN CHEMISTRY ORDERABL ES [facility] [place] [address] * (ABNORMAL) BLOOD GAS 2 ARTERIAL (07/03/2018 5:27 PM EST) pH, Arterial 7.44 7.35 - 7.45 [facility] PCO2, Arterial 50(H) 35 - 45 mmHg [facility] PO2, Arterial 65(L) 85 - 104 mmHg [facility] Bicarbonate, Arterial 33.1(H) 20.0 - 26.0 mmol/L [facility] Base Excess, Arterial 8.9(H) -3.0 - 3.0 mmol/L [facility] Hgb Blood Gas 9.8(L) 11.7 - 15.5 gm/dL [facility] Oxyhemoglobin, Arterial 90.9(L) 94.0 - 97.0 % [facility] Carboxyhemoglob in, Arterial 0.4 % [facility] Comment: Nonsmokers: 0.5-1.5% COHB Smokers: Variable, but usually less than 10% Toxic: 20-30% COHB Lethal: Greater than 60% COHB Methemoglobin, Arterial 0.3 <=1.5 % [facility] Na Whole Blood 137 135 - 145 mmol/L [facility] K Whole Blood 3.5 3.5 - 5.0 mmol/L [facility] Comment: Please note: Patients with WBC >100,000 may have falsely elevated Potassium levels. Contact the Clinical Chemistry Laboratory if there are any questions. ICa Whole Blood 1.16 1.15 - 1.33 mmol/L [facility] Comment: Note: ??Total bilirubin higher than 20 mg/dL may lead to falsely low ionized calcium. CL Whole Blood 99 98 - 107 mmol/L [facility] Gluc Whole Bld 148 65 - 199 mg/dL [facility] Comment:Diabetes: >=200 mg/d L plus symptoms. Lactate WB 0.7 0.5 - 2.2 mmol/L [facility] Blood specimen (specimen) 07/03/2018 5:27 PM EST 07/03/2018 5:27 PM EST Vipin Flower MD POINT OF CARE TEST O ARVIND [facility] [place] [address] * Potassium (07/03/2018 4:40 PM EST) Potassium 3.7 3.5 - 5.0 mmol/L [facility] Comment: Please note: ??Patients with WBC >100,000 may have falsely elevated Potassium levels. ??For accurate Potassium quantification in these patients send serum separator tube (gold top) for subsequent determinations. ??Contact the Clinical Chemistry Laboratory if there are any questions. Blood specimen (specimen) 07/03/2018 4:40 PM EST 07/03/2018 4:46 PM EST Narrative Resulting Agency Comment Spec In Lab Catarino Yin STATION MASTER CHEMISTRY ORDERA BLES [facility] [place] [address] * (ABNORMAL) BLOOD GAS 2 ARTERIAL (07/03/2018 12:14 PM EST) pH, Arterial 7.41 7.35 - 7.45 [facility] PCO2, Arterial 50(H) 35 - 45 mmHg [facility] PO2, Arterial 66(L) 85 - 104 mmHg [facility] Bicarbonate, Arterial 30.5(H) 20.0 - 26.0 mmol/L [facility] Base Excess, Arterial 5.8(H) -3.0 - 3.0 mmol/L [facility] Hgb Blood Gas 9.5(L) 11.7 - 15.5 gm/dL [facility] Oxyhemoglobin, Arterial 90.5(L) 94.0 - 97.0 % [facility] Carboxyhemoglob in, Arterial 0.7 % [facility] Comment: Nonsmokers: 0.5-1.5% COHB Smokers: Variable, but usually less than 10% Toxic: 20-30% COHB Lethal: Greater than 60% COHB Methemoglobin, Arterial 0.2 <=1.5 % [facility] Na Whole Blood 136 135 - 145 mmol/L [facility] K Whole Blood 3.9 3.5 - 5.0 mmol/L [facility] Comment: Please note: Patients with WBC >100,000 may have falsely elevated Potassium levels. Contact the Clinical Chemistry Laboratory if there are any questions. ICa Whole Blood 1.12(L) 1.15 - 1.33 mmol/L [facility] Comment: Note: ??Total bilirubin higher than 20 mg/dL may lead to falsely low ionized calcium. CL Whole Blood 102 98 - 107 mmol/L [facility] Gluc Whole Bld 120 65 - 199 mg/dL [facility] Comment:Diabetes: >=200 mg/d L plus symptoms. Lactate WB 0.7 0.5 - 2.2 mmol/L [facility] FIO2 Art 40 % [facility] PF Ratio Art 165 [facility] Blood specimen (specimen) 07/03/2018 12:14 PM EST 07/03/2018 12:14 PM EST Vipin Flower MD POINT OF CARE TEST O ARVIND Performing Organization Address City/State/[facility] Co de Phone Number [facility] [place] [address] * XR Chest PA or AP 1 view (07/03/2018 12:00 PM EST) Anatomical Region Laterality Modality Chest N/A Digital Radiogra phy Impressions 07/03/2018 12:14 PM EST Worsening pulmonary opacification. Unchanged appearance of the support apparatus. Thank you for letting us participate in the care of this patient. For questions regarding this report, please contact the number below. ? Narrative 07/03/2018 12:14 PM EST EXAMINATION: XR CHEST PA OR AP 1 VIEW CLINICAL HISTORY: serial evaluation of patient w/ influenza, slightly worse oxygenation, ?pleural effusion TECHNIQUE: 1 view of the chest COMPARISON: June 30, 2018 FINDINGS: No interval change in position of endotracheal tube, enteric feeding tube, and right-sided central venous catheter. Increased prominence of patchy consolidative opacification of both lungs with relative sparing of the apices. Procedure Note Luis A Corral MD - 07/03/2018 EXAMINATION: XR CHEST PA OR AP 1 VIEW CLINICAL HISTORY: serial evaluation of patient w/ influenza, slightlyworse oxygenation, ?pleural effusion TECHNIQUE: 1 view of the chest COMPARISON: June 30, 2018 FINDINGS: No interval change in position of endotracheal tube, enteric feeding tube,and right-sided central venous catheter. Increased prominence of patchy consolidative opacification of both lungs with relative sparing of theapices. IMPRESSION Worsening pulmonary opacification. Unchanged appearance of the support apparatus. Thank you for letting us participate in the care of this patient. Forquestions regarding this report, please contact the number below. Vipin Flower MD IMG DX ORDERABLES * Potassium (07/03/2018 8:22 AM EST) Potassium 4.0 3.5 - 5.0 mmol/L [facility] Comment: Please note: ??Patients with WBC >100,000 may have falsely elevated Potassium levels. ??For accurate Potassium quantification in these patients send serum separator tube (gold top) for subsequent determinations. ??Contact the Clinical Chemistry Laboratory if there are any questions. Blood specimen (specimen) 07/03/2018 8:22 AM EST 07/03/2018 8:34 AM EST Narrative Resulting Agency Comment Spec In Lab Catarino Yin STATION MASTER CHEMISTRY ORDERA BLES [facility] [place] [address] * (ABNORMAL) BLOOD GAS 2 ARTERIAL (07/03/2018 8:20 AM EST) pH, Arterial 7.38 7.35 - 7.45 [facility] PCO2, Arterial 54(H) 35 - 45 mmHg [facility] PO2, Arterial 64(L) 85 - 104 mmHg [facility] Bicarbonate, Arterial 31.5(H) 20.0 - 26.0 mmol/L [facility] Base Excess, Arterial 6.4(H) -3.0 - 3.0 mmol/L [facility] Hgb Blood Gas 9.4(L) 11.7 - 15.5 gm/dL [facility] Oxyhemoglobin, Arterial 89.6(L) 94.0 - 97.0 % [facility] Carboxyhemoglob in, Arterial 0.3 % [facility] Comment: Nonsmokers: 0.5-1.5% COHB Smokers: Variable, but usually less than 10% Toxic: 20-30% COHB Lethal: Greater than 60% COHB Methemoglobin, Arterial 0.4 <=1.5 % [facility] Na Whole Blood 137 135 - 145 mmol/L [facility] K Whole Blood 3.9 3.5 - 5.0 mmol/L [facility] Comment: Please note: Patients with WBC >100,000 may have falsely elevated Potassium levels. Contact the Clinical Chemistry Laboratory if there are any questions. ICa Whole Blood 1.14(L) 1.15 - 1.33 mmol/L [facility] Comment: Note: ??Total bilirubin higher than 20 mg/dL may lead to falsely low ionized calcium. CL Whole Blood 102 98 - 107 mmol/L [facility] Gluc Whole Bld 133 65 - 199 mg/dL [facility] Comment:Diabetes: >=200 mg/d L plus symptoms. Lactate WB 0.7 0.5 - 2.2 mmol/L [facility] FIO2 Art 40 % [facility] PF Ratio Art 160 [facility] Blood specimen (specimen) 07/03/2018 8:20 AM EST 07/03/2018 8:20 AM EST Vipin Flower MD POINT OF CARE TEST O RDERABLES Performing Organization Address City/[facility]/ZIP Co de Phone Number [facility] [place] [address] * (ABNORMAL) Differential, Automated (07/03/2018 2:15 AM EST) Neutrophil % 77.4 % [facility] Neutrophil Absolute 5.39 1.70 - 6.10 x10(3)/mc L [facility] Lymph % 11.6 % [facility] Lymphocytes Abs 0.8(L) 0.9 - 3.2 x10(3)/mc L [facility] Monocyte % 5.7 % [facility] Monocyte Abs 0.4 0.3 - 0.9 x10(3)/ L [facility] Eos % 3.0 % [facility] Eosinophils Abs 0.2 0.0 - 0.4 x10(3)/[facility] Basophil % 0.4 % [facility] Baso Absolute 0.0 0.0 - 0.1 x10(3)/mc L [facility] Immature Gran % 1.90 % [facility] Comment: Immature granulocytes(IG's)percentage and absolute count will include metamyelocytes, myelocytes, and promyelocytes. Blood smears from CBCs yielding IG's will be scanned manually for concordance. If this scan disagrees with the automated IG or if promyelocytes are noted, a manual differential will be performed. Immature Gran Absolute 0.13(H) 0.00 - 0.04 x10(3)/mc L [facility] Blood specimen (specimen) 07/03/2018 2:15 AM EST 07/03/2018 2:23 AM EST Narrative Resulting Agency Comment Spec In Lab Wendy Alan STATION MASTER HEMATOLOGY ORDERAB LES Performing Organization Address City/[facility]/ZIP Co de Phone Number [facility] [place] [address] * (ABNORMAL) Hemogram (07/03/2018 2:15 AM EST) White Blood Cell 7.0 4.0 - 9.5 x10(3)/[facility] Red Blood Cell 3.00(L) 4.00 - 5.21 x10(6)/mc L [facility] Hemoglobin 8.8(L) 11.7 - 15.5 gm/dL [facility] Hematocrit 27.7(L) 35.7 - 45.8 % [facility] Mean Cell Volume 92.3 82.6 - 94.4 fL [facility] Mean Cell Hemoglobin 29.3 27.1 - 32.0 pg [facility] Mean Cell Hemoglobin Concentration 31.8 31.7 - 35.0 gm/dL [facility] Platelet 283 145 - 357 x10(3)/[facility] LAB[facility]AT[facility] RDW Standard Deviation 47.6(H) 37.0 - 46.0 fL [facility] RDW coefficient of variation 14.0 11.5 - 14.1 % [facility] Mean Platelet Volume 9.3 7.6 - 12.9 fL [facility] NRBC% auto 0.0 % [facility] NRBC Absolute 0.000 0.000 - 0.000 x10(3)/[facility] Blood specimen (specimen) 07/03/2018 2:15 AM EST 07/03/2018 2:23 AM EST Narrative Resulting Agency Comment Spec In Lab Wendy Slaughter Alan STATION MASTER HEMATOLOGY ORDERAB LES [facility] [place] [address] * CK (07/03/2018 2:15 AM EST) Creatine Kinase 59 0 - 160 unit/L [facility] Blood specimen (specimen) 07/03/2018 2:15 AM EST 07/03/2018 2:23 AM EST Narrative Resulting Agency Comment Spec In Lab Vipin Flower MD CHEMISTRY ORDERABLES Performing Organization Address [facility] Co de Phone Number [facility] [place] [address] * Phosphorus (07/03/2018 2:15 AM EST) Phosphorus 3.4 2.5 - 4.5 mg/dL [facility] Blood specimen (specimen) 07/03/2018 2:15 AM EST 07/03/2018 2:23 AM EST Narrative Resulting Agency Comment Spec In Lab Wendy L Dayanna BROWN CHEMISTRY ORDERABL ES Performing Organization Address [facility] Phone Number [facility] [place] [address] * Magnesium (07/03/2018 2:15 AM EST) Magnesium 0.78 0.69 - 1.07 mmol/L [facility] Blood specimen (specimen) 07/03/2018 2:15 AM EST 07/03/2018 2:23 AM EST Narrative Resulting Agency Comment Spec In Lab Wendy Slaughter Dayanna BROWN CHEMISTRY ORDERABL ES Performing Organization Address [facility] de Phone Number [facility] [place] [address] * (ABNORMAL) Basic Metabolic Panel (non-fasting) (07/03/2018 2:15 AM EST) Glucose 126 65 - 199 mg/dL [facility] Comment:Diabetes: >=200 mg/d L plus symptoms Blood Urea Nitrogen 8 8 - 18 mg/dL [facility] Creatinine 0.42(L) 0.70 - 1.20 mg/dL [facility] Sodium 137 135 - 145 mmol/L [facility] Potassium 3.9 3.5 - 5.0 mmol/L [facility] Comment: Please note: ??Patients with WBC >100,000 may have falsely elevated Potassium levels. ??For accurate Potassium quantification in these patients send serum separator tube (gold top) for subsequent determinations. ??Contact the Clinical Chemistry Laboratory if there are any questions. Chloride 99 98 - 107 mmol/L [facility] Carbon Dioxide 30 22 - 31 mmol/L [facility] Anion Gap 8 5 - 15 mmol/L [facility] Calcium 8.4(L) 8.5 - 10.5 mg/dL [facility] Est Glomerular Filtration Rate 111 >=60 mL/min/1. 73 m?? [facility] Comment: The eGFR was calculated using the CKD-EPI equation. As with all creatinine based estimates of kidney function, eGFR values calculated with the CKD-EPI equation are not accurate in patients with acute kidney failure, extremes of body mass or the acutely ill. [email or web address] eGFR 129 >=60 mL/min/1. 73 m?? [facility] Comment: The eGFR was calculated using the CKD-EPI equation. As with all creatinine based estimates of kidney function, eGFR values calculated with the CKD-EPI equation are not accurate in patients with acute kidney failure, extremes of body mass or the acutely ill. [email or web address] Blood specimen (specimen) 07/03/2018 2:15 AM EST 07/03/2018 2:23 AM EST Narrative Resulting Agency Comment Spec In Lab Wendy Alan APRN CHEMISTRY ORDERABL ES [facility] [place] [address] * Triglyceride (07/03/2018 2:15 AM EST) Triglyceride 430 mg/dL [facility] Comment: Average Risk/Lower Risk: <150 mg/dL Borderline High Risk: 150-199 mg/dL High Risk: 200-499 mg/dL Very High Risk: >pr=767 mg/dL Blood specimen (specimen) 07/03/2018 2:15 AM EST 07/03/2018 2:23 AM EST Narrative Resulting Agency Comment Spec In Lab Vipin Flower MD CHEMISTRY ORDERABLES [facility] [place] [address] * (ABNORMAL) BLOOD GAS 2 ARTERIAL (07/02/2018 3:33 PM EST) pH, Arterial 7.38 7.35 - 7.45 [facility] PCO2, Arterial 44 35 - 45 mmHg [facility] PO2, Arterial 82(L) 85 - 104 mmHg [facility] Bicarbonate, Arterial 25.5 20.0 - 26.0 mmol/L [facility] Base Excess, Arterial 0.3 -3.0 - 3.0 mmol/L [facility] Hgb Blood Gas 8.2(L) 11.7 - 15.5 gm/dL [facility] Oxyhemoglobin, Arterial 93.9(L) 94.0 - 97.0 % [facility] Carboxyhemoglob in, Arterial 0.4 % [facility] Comment: Nonsmokers: 0.5-1.5% COHB Smokers: Variable, but usually less than 10% Toxic: 20-30% COHB Lethal: Greater than 60% COHB Methemoglobin, Arterial 0.5 <=1.5 % [facility] Na Whole Blood 137 135 - 145 mmol/L [facility] K Whole Blood 3.2(L) 3.5 - 5.0 mmol/L [facility] Comment: Please note: Patients with WBC >100,000 may have falsely elevated Potassium levels. Contact the Clinical Chemistry Laboratory if there are any questions. ICa Whole Blood 1.05(L) 1.15 - 1.33 mmol/L [facility] Comment: Note: ??Total bilirubin higher than 20 mg/dL may lead to falsely low ionized calcium. CL Whole Blood 109(H) 98 - 107 mmol/L [facility] Gluc Whole Bld 85 65 - 199 mg/dL [facility] Comment:Diabetes: >=200 mg/d L plus symptoms. Lactate WB 0.7 0.5 - 2.2 mmol/L [facility] FIO2 Art 40 % [facility] PF Ratio Art 205 [facility] Blood specimen (specimen) 07/02/2018 3:33 PM EST 07/02/2018 3:33 PM EST Vipin Flower MD POINT OF CARE TEST O RDERABLES Performing Organization Address [facility] Co de Phone Number [facility] [place] [address] * Potassium (07/02/2018 9:15 AM EST) Potassium 4.2 3.5 - 5.0 mmol/L [facility] Comment: Please note: ??Patients with WBC >100,000 may have falsely elevated Potassium levels. ??For accurate Potassium quantification in these patients send serum separator tube (gold top) for subsequent determinations. ??Contact the Clinical Chemistry Laboratory if there are any questions. Blood specimen (specimen) 07/02/2018 9:15 AM EST 07/02/2018 9:26 AM EST Narrative Resulting Agency Comment Spec In Lab Catarino Yin APRN CHEMISTRY ORDERA BLES Performing Organization Address [facility] Co de Phone Number [facility] [place] [address] * (ABNORMAL) Differential, Automated (07/02/2018 2:10 AM EST) Neutrophil % 80.1 % [facility] Neutrophil Absolute 7.75(H) 1.70 - 6.10 x10(3)/mc L [facility] Lymph % 9.0 % [facility] Lymphocytes Abs 0.9 0.9 - 3.2 x10(3)/mc L [facility] Monocyte % 4.5 % [facility] Monocyte Abs 0.4 0.3 - 0.9 x10(3)/[facility] Eos % 2.9 % [facility] Eosinophils Abs 0.3 0.0 - 0.4 x10(3)/[facility] Basophil % 0.3 % [facility] Baso Absolute 0.0 0.0 - 0.1 x10(3)/[facility] Immature Gran % 3.20 % [facility] Comment: Immature granulocytes(IG's)percentage and absolute count will include metamyelocytes, myelocytes, and promyelocytes. Blood smears from CBCs yielding IG's will be scanned manually for concordance. If this scan disagrees with the automated IG or if promyelocytes are noted, a manual differential will be performed. Immature Gran Absolute 0.31(H) 0.00 - 0.04 x10(3)/[facility] Blood specimen (specimen) 07/02/2018 2:10 AM EST 07/02/2018 2:21 AM EST Narrative Resulting Agency Comment Spec In Lab Wendy Alan APRN HEMATOLOGY ORDERAB LES [facility] [place] [address] * (ABNORMAL) Hemogram (07/02/2018 2:10 AM EST) White Blood Cell 9.7(H) 4.0 - 9.5 x10(3)/[facility] Red Blood Cell 2.86(L) 4.00 - 5.21 x10(6)/[facility] Hemoglobin 8.5(L) 11.7 - 15.5 gm/dL [facility] Hematocrit 26.9(L) 35.7 - 45.8 % [facility] Mean Cell Volume 94.1 82.6 - 94.4 fL [facility] Mean Cell Hemoglobin 29.7 27.1 - 32.0 pg [facility] Mean Cell Hemoglobin Concentration 31.6(L) 31.7 - 35.0 gm/dL [facility] Platelet 277 145 - 357 x10(3)/mc L [facility] RDW Standard Deviation 49.1(H) 37.0 - 46.0 fL [facility] RDW coefficient of variation 14.3(H) 11.5 - 14.1 % [facility] Mean Platelet Volume 9.7 7.6 - 12.9 fL [facility] NRBC% auto 0.0 % [facility] NRBC Absolute 0.000 0.000 - 0.000 x10(3)/mc L [facility] Blood specimen (specimen) 07/02/2018 2:10 AM EST 07/02/2018 2:21 AM EST Narrative Resulting Agency Comment Spec In Lab Wendy Slaughter Dayanna STATION MASTER HEMATOLOGY ORDERAB LES Performing Organization Address City/[facility]/ZIP Co de Phone Number [facility] [place] [address] * Phosphorus (07/02/2018 2:10 AM EST) Phosphorus 3.2 2.5 - 4.5 mg/dL [facility] Blood specimen (specimen) 07/02/2018 2:10 AM EST 07/02/2018 2:21 AM EST Narrative Resulting Agency Comment Spec In Lab Wendy L Dayanna STATION MASTER CHEMISTRY ORDERABL ES Performing Organization Address City/[facility]/ZIP Co de Phone Number [facility] [place] [address] * Magnesium (07/02/2018 2:10 AM EST) Magnesium 0.76 0.69 - 1.07 mmol/L [facility] Blood specimen (specimen) 07/02/2018 2:10 AM EST 07/02/2018 2:21 AM EST Narrative Resulting Agency Comment Spec In Lab Wendy Alan STATION MASTER CHEMISTRY ORDERABL ES [facility] [place] [address] * (ABNORMAL) Basic Metabolic Panel (non-fasting) (07/02/2018 2:10 AM EST) Glucose 96 65 - 199 mg/dL [facility] Comment:Diabetes: >=200 mg/d L plus symptoms Blood Urea Nitrogen 9 8 - 18 mg/dL [facility] Creatinine 0.42(L) 0.70 - 1.20 mg/dL [facility] Sodium 139 135 - 145 mmol/L [facility] Potassium 3.9 3.5 - 5.0 mmol/L [facility] Comment: Please note: ??Patients with WBC >100,000 may have falsely elevated Potassium levels. ??For accurate Potassium quantification in these patients send serum separator tube (gold top) for subsequent determinations. ??Contact the Clinical Chemistry Laboratory if there are any questions. Chloride 100 98 - 107 mmol/L [facility] Carbon Dioxide 27 22 - 31 mmol/L [facility] Anion Gap 12 5 - 15 mmol/L [facility] Calcium 8.1(L) 8.5 - 10.5 mg/dL [facility] Est Glomerular Filtration Rate 111 >=60 mL/min/1. 73 m?? [facility] Comment: The eGFR was calculated using the CKD-EPI equation. As with all creatinine based estimates of kidney function, eGFR values calculated with the CKD-EPI equation are not accurate in patients with acute kidney failure, extremes of body mass or the acutely ill. [email or web address] eGFR 129 >=60 mL/min/1. 73 m?? [facility] Comment: The eGFR was calculated using the CKD-EPI equation. As with all creatinine based estimates of kidney function, eGFR values calculated with the CKD-EPI equation are not accurate in patients with acute kidney failure, extremes of body mass or the acutely ill. [email or web address] Blood specimen (specimen) 07/02/2018 2:10 AM EST 07/02/2018 2:21 AM EST Narrative Resulting Agency Comment Spec In Lab Wendy Alan STEPHANIE CHEMISTRY ORDERABL ES Performing Organization Address [facility]/ZIP Co de Phone Number [facility] [place] [address] * Triglyceride (07/02/2018 2:10 AM EST) Triglyceride 361 mg/dL [facility] Comment: Average Risk/Lower Risk: <150 mg/dL Borderline High Risk: 150-199 mg/dL High Risk: 200-499 mg/dL Very High Risk: >et=483 mg/dL Blood specimen (specimen) 07/02/2018 2:10 AM EST 07/02/2018 2:21 AM EST Narrative Resulting Agency Comment Spec In Lab Vipin Flower MD CHEMISTRY ORDERABLES Performing Organization Address [facility] Co de Phone Number [facility] [place] [address] * (ABNORMAL) BLOOD GAS 2 ARTERIAL (07/01/2018 6:35 PM EST) pH, Arterial 7.36 7.35 - 7.45 [facility] PCO2, Arterial 46(H) 35 - 45 mmHg [facility] PO2, Arterial 79(L) 85 - 104 mmHg [facility] Bicarbonate, Arterial 25.3 20.0 - 26.0 mmol/L [facility] Base Excess, Arterial -0.1 -3.0 - 3.0 mmol/L [facility] Hgb Blood Gas 9.5(L) 11.7 - 15.5 gm/dL [facility] Oxyhemoglobin, Arterial 93.8(L) 94.0 - 97.0 % [facility] Carboxyhemoglob in, Arterial 0.7 % [facility] Comment: Nonsmokers: 0.5-1.5% COHB Smokers: Variable, but usually less than 10% Toxic: 20-30% COHB Lethal: Greater than 60% COHB Methemoglobin, Arterial 0.4 <=1.5 % [facility] Na Whole Blood 136 135 - 145 mmol/L [facility] K Whole Blood 3.6 3.5 - 5.0 mmol/L [facility] Comment: Please note: Patients with WBC >100,000 may have falsely elevated Potassium levels. Contact the Clinical Chemistry Laboratory if there are any questions. ICa Whole Blood 1.18 1.15 - 1.33 mmol/L [facility] Comment: Note: ??Total bilirubin higher than 20 mg/dL may lead to falsely low ionized calcium. CL Whole Blood 104 98 - 107 mmol/L [facility] Gluc Whole Bld 90 65 - 199 mg/dL [facility] Comment:Diabetes: >=200 mg/d L plus symptoms. Lactate WB 0.8 0.5 - 2.2 mmol/L [facility] FIO2 Art 40 % [facility] PF Ratio Art 198 [facility] Blood specimen (specimen) 07/01/2018 6:35 PM EST 07/01/2018 6:35 PM EST Vipin Flower MD POINT OF CARE TEST O RDERAZORAIDA Performing Organization Address City/State/[facility] Co de Phone Number [facility] [place] [address] * (ABNORMAL) BLOOD GAS 2 ARTERIAL (07/01/2018 12:08 PM EST) pH, Arterial 7.34(L) 7.35 - 7.45 [facility] PCO2, Arterial 50(H) 35 - 45 mmHg [facility] PO2, Arterial 80(L) 85 - 104 mmHg [facility] Bicarbonate, Arterial 26.5(H) 20.0 - 26.0 mmol/L [facility] Base Excess, Arterial 0.8 -3.0 - 3.0 mmol/L [facility] Hgb Blood Gas 9.6(L) 11.7 - 15.5 gm/dL [facility] Oxyhemoglobin, Arterial 93.3(L) 94.0 - 97.0 % [facility] Carboxyhemoglob in, Arterial 1.2 % [facility] Comment: Nonsmokers: 0.5-1.5% COHB Smokers: Variable, but usually less than 10% Toxic: 20-30% COHB Lethal: Greater than 60% COHB Methemoglobin, Arterial 0.2 <=1.5 % [facility] Na Whole Blood 137 135 - 145 mmol/L [facility] K Whole Blood 3.9 3.5 - 5.0 mmol/L [facility] Comment: Please note: Patients with WBC >100,000 may have falsely elevated Potassium levels. Contact the Clinical Chemistry Laboratory if there are any questions. ICa Whole Blood 1.18 1.15 - 1.33 mmol/L [facility] Comment: Note: ??Total bilirubin higher than 20 mg/dL may lead to falsely low ionized calcium. CL Whole Blood 104 98 - 107 mmol/L [facility] Gluc Whole Bld 96 65 - 199 mg/dL [facility] Comment:Diabetes: >=200 mg/d L plus symptoms. Lactate WB 0.8 0.5 - 2.2 mmol/L [facility] FIO2 Art 40 % [facility] PF Ratio Art 200 [facility] Blood specimen (specimen) 07/01/2018 12:08 PM EST 07/01/2018 12:08 PM EST Vipin Flower MD POINT OF CARE TEST O RDERABLES [facility] [place] [address] * (ABNORMAL) BLOOD GAS 2 ARTERIAL (07/01/2018 5:49 AM EST) pH, Arterial 7.32(L) 7.35 - 7.45 [facility] PCO2, Arterial 56(H) 35 - 45 mmHg [facility] PO2, Arterial 74(L) 85 - 104 mmHg [facility] Bicarbonate, Arterial 28.7(H) 20.0 - 26.0 mmol/L [facility] Base Excess, Arterial 2.6 -3.0 - 3.0 mmol/L [facility] Hgb Blood Gas 10.0(L) 11.7 - 15.5 gm/dL [facility] Oxyhemoglobin, Arterial 92.6(L) 94.0 - 97.0 % [facility] Carboxyhemoglob in, Arterial 0.4 % [facility] Comment: Nonsmokers: 0.5-1.5% COHB Smokers: Variable, but usually less than 10% Toxic: 20-30% COHB Lethal: Greater than 60% COHB Methemoglobin, Arterial 0.3 <=1.5 % [facility] Na Whole Blood 138 135 - 145 mmol/L [facility] K Whole Blood 4.2 3.5 - 5.0 mmol/L [facility] Comment: Please note: Patients with WBC >100,000 may have falsely elevated Potassium levels. Contact the Clinical Chemistry Laboratory if there are any questions. ICa Whole Blood 1.18 1.15 - 1.33 mmol/L [facility] Comment: Note: ??Total bilirubin higher than 20 mg/dL may lead to falsely low ionized calcium. CL Whole Blood 105 98 - 107 mmol/L [facility] Gluc Whole Bld 101 65 - 199 mg/dL [facility] Comment:Diabetes: >=200 mg/d L plus symptoms. Lactate WB 0.8 0.5 - 2.2 mmol/L [facility] FIO2 Art 40 % [facility] PF Ratio Art 185 [facility] Blood specimen (specimen) 07/01/2018 5:49 AM EST 07/01/2018 5:49 AM EST Vipin Flower MD POINT OF CARE TEST O RDERABLES Performing Organization Address [facility] [place] [address] * Legionella culture Sputum Expectorated (07/01/2018 3:41 AM EST) Legionella Culture No Legionella isolated [facility] Sputum specimen (specimen) 07/01/2018 3:41 AM EST 07/01/2018 7:28 AM EST Narrative Resulting Agency Comment Spec In Lab Vipin Flower MD MICROBIOLOGY - GENER AL ORDERABLES Performing Organization Address [facility] de Phone Number [facility] [place] [address] * (ABNORMAL) Lower Respiratory Culture Sputum Expectorated (07/01/2018 3:41 AM EST) Pathologist [facility] Lower Respiratory Culture [place] albicans Rare mixed bacterial morphotypes suggestive of normal upper respiratory germaine (A) [facility] Gram Stain Few Neutrophils seen Few squamous epithelial cells seen Few Yeast seen Rare mixed bacterial morphotypes suggestive of normal upper respiratory germaine (A) [facility] Organism [place] albicans(A) [facility] Organism Yeast(A) [facility] Sputum specimen (specimen) 07/01/2018 3:41 AM EST 07/01/2018 7:28 AM EST Narrative Resulting Agency Comment Spec In Lab Wendy Alan APRN MICROBIOLOGY - GEN ERAL ORDERABLES Performing Organization Address [facility] Co de Phone Number [facility] [place] [address] * (ABNORMAL) Differential, Automated (07/01/2018 2:15 AM EST) Neutrophil % 81.1 % [facility] Neutrophil Absolute 7.76(H) 1.70 - 6.10 x10(3)/mc L [facility] Lymph % 10.1 % [facility] Lymphocytes Abs 1.0 0.9 - 3.2 x10(3)/[facility] Monocyte % 3.5 % [facility] Monocyte Abs 0.3 0.3 - 0.9 x10(3)/[facility] Eos % 2.2 % [facility] Eosinophils Abs 0.2 0.0 - 0.4 x10(3)/[facility] Basophil % 0.2 % [facility] Baso Absolute 0.0 0.0 - 0.1 x10(3)/[facility] Immature Gran % 2.90 % [facility] Comment: Immature granulocytes(IG's)percentage and absolute count will include metamyelocytes, myelocytes, and promyelocytes. Blood smears from CBCs yielding IG's will be scanned manually for concordance. If this scan disagrees with the automated IG or if promyelocytes are noted, a manual differential will be performed. Immature Gran Absolute 0.28(H) 0.00 - 0.04 x10(3)/[facility] Blood specimen (specimen) 07/01/2018 2:15 AM EST 07/01/2018 2:27 AM EST Narrative Resulting Agency Comment Spec In Lab Wendy L Alan STATION MASTER HEMATOLOGY ORDERAB LES Performing Organization Address City/State/[facility] Co de Phone Number [facility] [place] [address] * (ABNORMAL) Hemogram (07/01/2018 2:15 AM EST) White Blood Cell 9.6(H) 4.0 - 9.5 x10(3)/[facility] Red Blood Cell 2.97(L) 4.00 - 5.21 x10(6)/ L [facility] Hemoglobin 8.7(L) 11.7 - 15.5 gm/dL [facility] Hematocrit 28.1(L) 35.7 - 45.8 % [facility] Mean Cell Volume 94.6(H) 82.6 - 94.4 fL [facility] Mean Cell Hemoglobin 29.3 27.1 - 32.0 pg [facility] Mean Cell Hemoglobin Concentration 31.0(L) 31.7 - 35.0 gm/dL [facility] Platelet 278 145 - 357 x10(3)/mc L [facility] RDW Standard Deviation 50.6(H) 37.0 - 46.0 fL [facility] RDW coefficient of variation 14.6(H) 11.5 - 14.1 % [facility] Mean Platelet Volume 9.9 7.6 - 12.9 fL [facility] NRBC% auto 0.0 % [facility] NRBC Absolute 0.000 0.000 - 0.000 x10(3)/mc L [facility] Blood specimen (specimen) 07/01/2018 2:15 AM EST 07/01/2018 2:27 AM EST Narrative Resulting Agency Comment Spec In Lab Wendy Alan STATION MASTER HEMATOLOGY ORDERAB LES Performing Organization Address [facility] Co de Phone Number [facility] [place] [address] * Phosphorus (07/01/2018 2:15 AM EST) Phosphorus 3.8 2.5 - 4.5 mg/dL [facility] Blood specimen (specimen) 07/01/2018 2:15 AM EST 07/01/2018 2:27 AM EST Narrative Resulting Agency Comment Spec In Lab Wendy Alan STATION MASTER CHEMISTRY ORDERABL ES Performing Organization Address [facility] Co de Phone Number [facility] [place] [address] * Magnesium (07/01/2018 2:15 AM EST) Magnesium 0.81 0.69 - 1.07 mmol/L [facility] Blood specimen (specimen) 07/01/2018 2:15 AM EST 07/01/2018 2:27 AM EST Narrative Resulting Agency Comment Spec In Lab Wendy Alan STATION MASTER CHEMISTRY ORDERABL ES [facility] [place] [address] * (ABNORMAL) Basic Metabolic Panel (non-fasting) (07/01/2018 2:15 AM EST) Glucose 100 65 - 199 mg/dL [facility] Comment:Diabetes: >=200 mg/d L plus symptoms Blood Urea Nitrogen 15 8 - 18 mg/dL [facility] Creatinine 0.41(L) 0.70 - 1.20 mg/dL [facility] Sodium 138 135 - 145 mmol/L [facility] Potassium 4.2 3.5 - 5.0 mmol/L [facility] Comment: Please note: ??Patients with WBC >100,000 may have falsely elevated Potassium levels. ??For accurate Potassium quantification in these patients send serum separator tube (gold top) for subsequent determinations. ??Contact the Clinical Chemistry Laboratory if there are any questions. Chloride 101 98 - 107 mmol/L [facility] Carbon Dioxide 27 22 - 31 mmol/L [facility] Anion Gap 10 5 - 15 mmol/L [facility] Calcium 8.3(L) 8.5 - 10.5 mg/dL [facility] Est Glomerular Filtration Rate 112 >=60 mL/min/1. 73 m?? [facility] Comment: The eGFR was calculated using the CKD-EPI equation. As with all creatinine based estimates of kidney function, eGFR values calculated with the CKD-EPI equation are not accurate in patients with acute kidney failure, extremes of body mass or the acutely ill. [email or web address] eGFR 130 >=60 mL/min/1. 73 m?? [facility] Comment: The eGFR was calculated using the CKD-EPI equation. As with all creatinine based estimates of kidney function, eGFR values calculated with the CKD-EPI equation are not accurate in patients with acute kidney failure, extremes of body mass or the acutely ill. [email or web address] Blood specimen (specimen) 07/01/2018 2:15 AM EST 07/01/2018 2:27 AM EST Narrative Resulting Agency Comment Spec In Lab Wendy Alan STATION MASTER CHEMISTRY ORDERABL ES [facility] [place] [address] * (ABNORMAL) BLOOD GAS 2 ARTERIAL (06/30/2018 9:48 PM EST) pH, Arterial 7.29(Criti bela) 7.35 - 7.45 [facility] PCO2, Arterial 56(H) 35 - 45 mmHg [facility] PO2, Arterial 94 85 - 104 mmHg [facility] Bicarbonate, Arterial 26.1(H) 20.0 - 26.0 mmol/L [facility] Base Excess, Arterial -0.4 -3.0 - 3.0 mmol/L [facility] Hgb Blood Gas 9.9(L) 11.7 - 15.5 gm/dL [facility] Oxyhemoglobin, Arterial 95.3 94.0 - 97.0 % [facility] Carboxyhemoglob in, Arterial 0.1 % [facility] Comment: Nonsmokers: 0.5-1.5% COHB Smokers: Variable, but usually less than 10% Toxic: 20-30% COHB Lethal: Greater than 60% COHB Methemoglobin, Arterial 0.4 <=1.5 % [facility] Na Whole Blood 138 135 - 145 mmol/L [facility] K Whole Blood 4.2 3.5 - 5.0 mmol/L [facility] Comment: Please note: Patients with WBC >100,000 may have falsely elevated Potassium levels. Contact the Clinical Chemistry Laboratory if there are any questions. ICa Whole Blood 1.20 1.15 - 1.33 mmol/L [facility] Comment: Note: ??Total bilirubin higher than 20 mg/dL may lead to falsely low ionized calcium. CL Whole Blood 105 98 - 107 mmol/L [facility] Gluc Whole Bld 111 65 - 199 mg/dL [facility] Comment:Diabetes: >=200 mg/d L plus symptoms. Lactate WB 0.6 0.5 - 2.2 mmol/L [facility] FIO2 Art 60 % [facility] PF Ratio Art 157 [facility] Blood specimen (specimen) 06/30/2018 9:48 PM EST 06/30/2018 9:48 PM EST Vipin Flower MD POINT OF CARE TEST O ARVIND Performing Organization Address City/State/[facility] Co de Phone Number [facility] [place] [address] * XR Chest PA or AP 1 view (06/30/2018 6:48 PM EST) Anatomical Region Laterality Modality Chest N/A Digital Radiogra phy Impressions 07/01/2018 8:46 AM EST 1. ??Appropriately positioned right IJ central venous catheter. 2. ??No interval change in lung findings. I have personally reviewed the image(s) and the residents interpretation and agree with the findings, Nixon Templeton at 07/01/2018 8:46 AM Thank you for letting us participate in the care of this patient. For questions regarding this report, please contact the number below. ? Electronically signed by: Nixon Templeton [facility] ([phone]), at 07/01/2018 8:46 AM Narrative 07/01/2018 8:46 AM EST EXAMINATION: XR CHEST PA OR AP 1 VIEW CLINICAL HISTORY: assess position of new R IJ central venous catheter TECHNIQUE: AP 40 degrees upright view of the chest COMPARISON: Chest radiograph 06/30/2018 FINDINGS: There has been interval placement of a right IJ central venous catheter with tip projecting at the level of the distal IVC . An endotracheal tube tip projects approximately 5 cm above the jenaro. An enteric tube projects well below the diaphragm, distal tip is not visualized. Considering slightly ??low lung volumes, there is no appreciable interval change in lung findings consisting of bilateral patchy airspace opacities. No pneumothorax. The cardiomediastinal silhouette is unchanged Procedure Note Nixon Templeton MD - 07/01/2018 EXAMINATION: XR CHEST PA OR AP 1 VIEW CLINICAL HISTORY: assess position of new R IJ central venous catheter TECHNIQUE: AP 40 degrees upright view of the chest COMPARISON: Chest radiograph 06/30/2018 FINDINGS: There has been interval placement of a right IJ central venous catheterwith tip projecting at the level of the distal IVC . An endotracheal tube tipprojects approximately 5 cm above the jenaro. An enteric tube projects well belowthe diaphragm, distal tip is not visualized. Considering slightly low lung volumes, there is no appreciable intervalchange in lung findings consisting of bilateral patchy airspace opacities. No pneumothorax. The cardiomediastinal silhouette is unchanged IMPRESSION 1. Appropriately positioned right IJ central venous catheter. 2. No interval change in lung findings. I have personally reviewed the image(s) and the residents interpretationand agree with the findings, Nixon Templeton at 07/01/2018 8:46 AM Thank you for letting us participate in the care of this patient. Forquestions regarding this report, please contact the number below. Vipin Flower MD IMG DX ORDERABLES * CK (06/30/2018 6:13 PM EST) Creatine Kinase 141 0 - 160 unit/L [facility] Blood specimen (specimen) 06/30/2018 6:13 PM EST 06/30/2018 6:29 PM EST Narrative Resulting Agency Comment Spec In Lab Vipin Flower MD CHEMISTRY ORDERABLES Performing Organization Address [facility] Co de Phone Number [facility] [place] [address] * Blood culture (06/30/2018 1:00 PM EST) Pathologist [facility] Blood Culture No growth at 5 days. [facility] Blood specimen (specimen) STRUCTURE OF LEFT WRIST REGION / Unknown 06/30/2018 1:00 PM EST 06/30/2018 1:45 PM EST Narrative Resulting Agency Comment Spec In Lab Vipin Flower MD MICROBIOLOGY - BLOOD ORDERABLES Performing Organization Address [facility] Co de Phone Number [facility] [place] [address] * Blood culture (06/30/2018 1:00 PM EST) Pathologist [facility] Blood Culture No growth at 5 days. [facility] Blood specimen (specimen) STRUCTURE OF RIGHT WRIST REGION / Unknown 06/30/2018 1:00 PM EST 06/30/2018 1:45 PM EST Narrative Resulting Agency Comment Spec In Lab Vipin Flower MD MICROBIOLOGY - BLOOD ORDERABLES Performing Organization Address [facility] Co de Phone Number [facility] [place] [address] * (ABNORMAL) BLOOD GAS 2 ARTERIAL (06/30/2018 11:33 AM EST) pH, Arterial 7.31(L) 7.35 - 7.45 [facility] PCO2, Arterial 52(H) 35 - 45 mmHg [facility] PO2, Arterial 62(L) 85 - 104 mmHg [facility] Bicarbonate, Arterial 26.0 20.0 - 26.0 mmol/L [facility] Base Excess, Arterial -0.3 -3.0 - 3.0 mmol/L [facility] Hgb Blood Gas 10.8(L) 11.7 - 15.5 gm/dL [facility] Oxyhemoglobin, Arterial 88.1(L) 94.0 - 97.0 % [facility] Carboxyhemoglob in, Arterial 0.5 % [facility] Comment: Nonsmokers: 0.5-1.5% COHB Smokers: Variable, but usually less than 10% Toxic: 20-30% COHB Lethal: Greater than 60% COHB Methemoglobin, Arterial 0.3 <=1.5 % [facility] Na Whole Blood 136 135 - 145 mmol/L [facility] K Whole Blood 4.5 3.5 - 5.0 mmol/L [facility] Comment: Please note: Patients with WBC >100,000 may have falsely elevated Potassium levels. Contact the Clinical Chemistry Laboratory if there are any questions. ICa Whole Blood 1.21 1.15 - 1.33 mmol/L [facility] Comment: Note: ??Total bilirubin higher than 20 mg/dL may lead to falsely low ionized calcium. CL Whole Blood 104 98 - 107 mmol/L [facility] Gluc Whole Bld 123 65 - 199 mg/dL [facility] Comment:Diabetes: >=200 mg/d L plus symptoms. Lactate WB 0.9 0.5 - 2.2 mmol/L [facility] Blood specimen (specimen) 06/30/2018 11:33 AM EST 06/30/2018 11:33 AM EST Vipin Flower MD POINT OF CARE TEST O RDERABLES [facility] [place] [address] * Potassium (06/30/2018 9:36 AM EST) Potassium 4.8 3.5 - 5.0 mmol/L [facility] Comment: Please note: ??Patients with WBC >100,000 may have falsely elevated Potassium levels. ??For accurate Potassium quantification in these patients send serum separator tube (gold top) for subsequent determinations. ??Contact the Clinical Chemistry Laboratory if there are any questions. Blood specimen (specimen) 06/30/2018 9:36 AM EST 06/30/2018 10:12 AM EST Narrative Resulting Agency Comment Spec In Lab Vipin Flower MD CHEMISTRY ORDERABLES [facility] [place] [address] * XR Chest PA or AP 1 view (06/30/2018 5:39 AM EST) Anatomical Region Laterality Modality Chest N/A Digital Radiogra phy Impressions 06/30/2018 8:25 AM EST Patchy infiltrates in both lungs distant with pneumonia, ARDS, and/or edema are not significantly changed. Small right pleural effusion. Thank you for letting us participate in the care of this patient. For questions regarding this report, please contact the number below. ? Narrative 06/30/2018 8:25 AM EST EXAMINATION: XR CHEST PA OR AP 1 VIEW CLINICAL HISTORY: F/U infiltrates after desaturation TECHNIQUE: 1 view of the chest COMPARISON: June 28, 2018 FINDINGS: Patchy airspace opacities are present in the lungs bilaterally and appear without change. The right costophrenic angle is blunted. The heart is normal in size. An endotracheal tube is present and in a satisfactory position. An enteric catheter reaches the abdomen. Procedure Note Kirit Pineda MD - 06/30/2018 EXAMINATION: XR CHEST PA OR AP 1 VIEW CLINICAL HISTORY: F/U infiltrates after desaturation TECHNIQUE: 1 view of the chest COMPARISON: June 28, 2018 FINDINGS: Patchy airspace opacities are present in the lungs bilaterally andappear without change. The right costophrenic angle is blunted. The heart is normal in size. An endotracheal tube is present and in a satisfactory position. Anenteric catheter reaches the abdomen. IMPRESSION Patchy infiltrates in both lungs distant with pneumonia, ARDS, and/oredema are not significantly changed. Small right pleural effusion. Thank you for letting us participate in the care of this patient. Forquestions regarding this report, please contact the number below. Electronically signed by: HERLINDA Escobar [facility]([phone]), at 06/30/2018 8:25 AM Vipin Flower MD IMG DX ORDERABLES * (ABNORMAL) Differential, Automated (06/30/2018 12:26 AM EST) Neutrophil % 79.8 % [facility] Neutrophil Absolute 8.69(H) 1.70 - 6.10 x10(3)/mc L [facility] Lymph % 12.1 % [facility] Lymphocytes Abs 1.3 0.9 - 3.2 x10(3)/mc L [facility] Monocyte % 3.9 % [facility] Monocyte Abs 0.4 0.3 - 0.9 x10(3)/mc L [facility] Eos % 2.4 % [facility] Eosinophils Abs 0.3 0.0 - 0.4 x10(3)/mc L [facility] Basophil % 0.6 % [facility] Baso Absolute 0.1 0.0 - 0.1 x10(3)/mc L [facility] Immature Gran % 1.20 % [facility] Comment: Immature granulocytes(IG's)percentage and absolute count will include metamyelocytes, myelocytes, and promyelocytes. Blood smears from CBCs yielding IG's will be scanned manually for concordance. If this scan disagrees with the automated IG or if promyelocytes are noted, a manual differential will be performed. Immature Gran Absolute 0.13(H) 0.00 - 0.04 x10(3)/mc L [facility] Blood specimen (specimen) 06/30/2018 12:26 AM EST 06/30/2018 12:31 AM EST Narrative Resulting Agency Comment Spec In Lab Wendy Alan STATION MASTER HEMATOLOGY ORDERAB LES [facility] [place] [address] * (ABNORMAL) Hemogram (06/30/2018 12:26 AM EST) White Blood Cell 10.9(H) 4.0 - 9.5 x10(3)/mc L [facility] Red Blood Cell 3.27(L) 4.00 - 5.21 x10(6)/mc L [facility] Hemoglobin 9.4(L) 11.7 - 15.5 gm/dL [facility] Hematocrit 30.4(L) 35.7 - 45.8 % [facility] Mean Cell Volume 93.0 82.6 - 94.4 fL [facility] Mean Cell Hemoglobin 28.7 27.1 - 32.0 pg [facility] Mean Cell Hemoglobin Concentration 30.9(L) 31.7 - 35.0 gm/dL [facility] Platelet 323 145 - 357 x10(3)/mc L [facility] RDW Standard Deviation 48.3(H) 37.0 - 46.0 fL [facility] RDW coefficient of variation 14.1 11.5 - 14.1 % [facility] Mean Platelet Volume 9.9 7.6 - 12.9 fL [facility] NRBC% auto 0.0 % [facility] NRBC Absolute 0.000 0.000 - 0.000 x10(3)/mc L [facility] Blood specimen (specimen) 06/30/2018 12:26 AM EST 06/30/2018 12:31 AM EST Narrative Resulting Agency Comment Spec In Lab Wendy Alan STATION MASTER HEMATOLOGY ORDERAB LES Performing Organization Address [facility] de Phone Number [facility] [place] [address] * Phosphorus (06/30/2018 12:26 AM EST) Phosphorus 3.7 2.5 - 4.5 mg/dL [facility] Blood specimen (specimen) 06/30/2018 12:26 AM EST 06/30/2018 12:31 AM EST Narrative Resulting Agency Comment Spec In Lab Wendy Alan STATION MASTER CHEMISTRY ORDERABL ES Performing Organization Address [facility] Phone Number [facility] [place] [address] * Magnesium (06/30/2018 12:26 AM EST) Magnesium 0.91 0.69 - 1.07 mmol/L [facility] Blood specimen (specimen) 06/30/2018 12:26 AM EST 06/30/2018 12:31 AM EST Narrative Resulting Agency Comment Spec In Lab Wendy Alan STATION MASTER CHEMISTRY ORDERABL ES Performing Organization Address [facility] Phone Number [facility] [place] [address] * (ABNORMAL) Basic Metabolic Panel (non-fasting) (06/30/2018 12:26 AM EST) Glucose 106 65 - 199 mg/dL [facility] Comment:Diabetes: >=200 mg/d L plus symptoms Blood Urea Nitrogen 15 8 - 18 mg/dL [facility] Creatinine 0.54(L) 0.70 - 1.20 mg/dL [facility] Sodium 138 135 - 145 mmol/L [facility] Potassium 3.8 3.5 - 5.0 mmol/L [facility] Comment: Please note: ??Patients with WBC >100,000 may have falsely elevated Potassium levels. ??For accurate Potassium quantification in these patients send serum separator tube (gold top) for subsequent determinations. ??Contact the Clinical Chemistry Laboratory if there are any questions. Chloride 101 98 - 107 mmol/L [facility] Carbon Dioxide 27 22 - 31 mmol/L [facility] Anion Gap 10 5 - 15 mmol/L [facility] Calcium 8.6 8.5 - 10.5 mg/dL [facility] Est Glomerular Filtration Rate 103 >=60 mL/min/1. 73 m?? [facility] Comment: The eGFR was calculated using the CKD-EPI equation. As with all creatinine based estimates of kidney function, eGFR values calculated with the CKD-EPI equation are not accurate in patients with acute kidney failure, extremes of body mass or the acutely ill. [email or web address] eGFR 119 >=60 mL/min/1. 73 m?? [facility] Comment: The eGFR was calculated using the CKD-EPI equation. As with all creatinine based estimates of kidney function, eGFR values calculated with the CKD-EPI equation are not accurate in patients with acute kidney failure, extremes of body mass or the acutely ill. [email or web address] Blood specimen (specimen) 06/30/2018 12:26 AM EST 06/30/2018 12:31 AM EST Narrative Resulting Agency Comment Spec In Lab Wendy Alan STATION MASTER CHEMISTRY ORDERABL ES [facility] [place] [address] * Potassium (06/29/2018 10:28 AM EST) Potassium 4.2 3.5 - 5.0 mmol/L [facility] Comment: Please note: ??Patients with WBC >100,000 may have falsely elevated Potassium levels. ??For accurate Potassium quantification in these patients send serum separator tube (gold top) for subsequent determinations. ??Contact the Clinical Chemistry Laboratory if there are any questions. Blood specimen (specimen) 06/29/2018 10:28 AM EST 06/29/2018 10:34 AM EST Narrative Resulting Agency Comment Spec In Lab Catarino Yin STATION MASTER CHEMISTRY ORDERA BLES [facility] [place] [address] * (ABNORMAL) BLOOD GAS 2 ARTERIAL (06/29/2018 6:12 AM EST) pH, Arterial 7.38 7.35 - 7.45 [facility] PCO2, Arterial 46(H) 35 - 45 mmHg [facility] PO2, Arterial 78(L) 85 - 104 mmHg [facility] Bicarbonate, Arterial 26.8(H) 20.0 - 26.0 mmol/L [facility] Base Excess, Arterial 1.7 -3.0 - 3.0 mmol/L [facility] Hgb Blood Gas 10.9(L) 11.7 - 15.5 gm/dL [facility] Oxyhemoglobin, Arterial 93.5(L) 94.0 - 97.0 % [facility] Carboxyhemoglob in, Arterial 0.5 % [facility] Comment: Nonsmokers: 0.5-1.5% COHB Smokers: Variable, but usually less than 10% Toxic: 20-30% COHB Lethal: Greater than 60% COHB Methemoglobin, Arterial 0.2 <=1.5 % [facility] Na Whole Blood 134(L) 135 - 145 mmol/L [facility] K Whole Blood 4.1 3.5 - 5.0 mmol/L [facility] Comment: Please note: Patients with WBC >100,000 may have falsely elevated Potassium levels. Contact the Clinical Chemistry Laboratory if there are any questions. ICa Whole Blood 1.16 1.15 - 1.33 mmol/L [facility] Comment: Note: ??Total bilirubin higher than 20 mg/dL may lead to falsely low ionized calcium. CL Whole Blood 101 98 - 107 mmol/L [facility] Gluc Whole Bld 89 65 - 199 mg/dL [facility] Comment:Diabetes: >=200 mg/d L plus symptoms. Lactate WB 1.0 0.5 - 2.2 mmol/L [facility] FIO2 Art 50 % [facility] PF Ratio Art 156 [facility] Blood specimen (specimen) 06/29/2018 6:12 AM EST 06/29/2018 6:12 AM EST Vipin Flower MD POINT OF CARE TEST O ARVIND Performing Organization Address City/State/[facility] Co de Phone Number [facility] [place] [address] * (ABNORMAL) Differential, Automated (06/29/2018 12:40 AM EST) Neutrophil % 73.2 % [facility] Neutrophil Absolute 7.12(H) 1.70 - 6.10 x10(3)/mc L [facility] Lymph % 20.8 % [facility] Lymphocytes Abs 2.0 0.9 - 3.2 x10(3)/mc L [facility] Monocyte % 3.8 % [facility] Monocyte Abs 0.4 0.3 - 0.9 x10(3)/mc L [facility] Eos % 1.2 % [facility] Eosinophils Abs 0.1 0.0 - 0.4 x10(3)/mc L [facility] Basophil % 0.2 % [facility] Baso Absolute 0.0 0.0 - 0.1 x10(3)/mc L [facility] Immature Gran % 0.80 % [facility] Comment: Immature granulocytes(IG's)percentage and absolute count will include metamyelocytes, myelocytes, and promyelocytes. Blood smears from CBCs yielding IG's will be scanned manually for concordance. If this scan disagrees with the automated IG or if promyelocytes are noted, a manual differential will be performed. Immature Gran Absolute 0.08(H) 0.00 - 0.04 x10(3)/mc L [facility] Blood specimen (specimen) 06/29/2018 12:40 AM EST 06/29/2018 12:57 AM EST Narrative Resulting Agency Comment Spec In Lab Wendy Alan STATION MASTER HEMATOLOGY ORDERAB LES [facility] [place] [address] * (ABNORMAL) Hemogram (06/29/2018 12:40 AM EST) White Blood Cell 9.7(H) 4.0 - 9.5 x10(3)/mc L [facility] Red Blood Cell 3.43(L) 4.00 - 5.21 x10(6)/mc L [facility] Hemoglobin 9.8(L) 11.7 - 15.5 gm/dL [facility] Hematocrit 30.9(L) 35.7 - 45.8 % [facility] Mean Cell Volume 90.1 82.6 - 94.4 fL [facility] Mean Cell Hemoglobin 28.6 27.1 - 32.0 pg [facility] Mean Cell Hemoglobin Concentration 31.7 31.7 - 35.0 gm/dL [facility] Platelet 295 145 - 357 x10(3)/mc L [facility] RDW Standard Deviation 45.3 37.0 - 46.0 fL [facility] RDW coefficient of variation 13.7 11.5 - 14.1 % [facility] Mean Platelet Volume 10.4 7.6 - 12.9 fL [facility] NRBC% auto 0.0 % [facility] NRBC Absolute 0.000 0.000 - 0.000 x10(3)/mc L [facility] Blood specimen (specimen) 06/29/2018 12:40 AM EST 06/29/2018 12:57 AM EST Narrative Resulting Agency Comment Spec In Lab Wendy Slaughter Alan STATION MASTER HEMATOLOGY ORDERAB LES Performing Organization Address [facility]/ZIP Co de Phone Number [facility] [place] [address] * (ABNORMAL) Phosphorus (06/29/2018 12:40 AM EST) Phosphorus 4.7(H) 2.5 - 4.5 mg/dL [facility] Blood specimen (specimen) 06/29/2018 12:40 AM EST 06/29/2018 12:57 AM EST Narrative Resulting Agency Comment Spec In Lab Wendy Slaughter Alan STATION MASTER CHEMISTRY ORDERABL ES Performing Organization Address [facility] Co de Phone Number [facility] [place] [address] * Magnesium (06/29/2018 12:40 AM EST) Magnesium 0.97 0.69 - 1.07 mmol/L [facility] Blood specimen (specimen) 06/29/2018 12:40 AM EST 06/29/2018 12:57 AM EST Narrative Resulting Agency Comment Spec In Lab Wendy Slaughter Alan STATION MASTER CHEMISTRY ORDERABL ES Performing Organization Address [facility] Co de Phone Number [facility] [place] [address] * (ABNORMAL) Basic Metabolic Panel (non-fasting) (06/29/2018 12:40 AM EST) Glucose 99 65 - 199 mg/dL [facility] Comment:Diabetes: >=200 mg/d L plus symptoms Blood Urea Nitrogen 12 8 - 18 mg/dL [facility] Creatinine 0.46(L) 0.70 - 1.20 mg/dL [facility] Sodium 137 135 - 145 mmol/L [facility] Potassium 3.6 3.5 - 5.0 mmol/L [facility] Comment: Please note: ??Patients with WBC >100,000 may have falsely elevated Potassium levels. ??For accurate Potassium quantification in these patients send serum separator tube (gold top) for subsequent determinations. ??Contact the Clinical Chemistry Laboratory if there are any questions. Chloride 98 98 - 107 mmol/L [facility] Carbon Dioxide 27 22 - 31 mmol/L [facility] Anion Gap 12 5 - 15 mmol/L [facility] Calcium 8.6 8.5 - 10.5 mg/dL [facility] Est Glomerular Filtration Rate 108 >=60 mL/min/1. 73 m?? [facility] Comment: The eGFR was calculated using the CKD-EPI equation. As with all creatinine based estimates of kidney function, eGFR values calculated with the CKD-EPI equation are not accurate in patients with acute kidney failure, extremes of body mass or the acutely ill. [email or web address] [email or web address] eGFR 125 >=60 mL/min/1. 73 m?? [facility] Comment: The eGFR was calculated using the CKD-EPI equation. As with all creatinine based estimates of kidney function, eGFR values calculated with the CKD-EPI equation are not accurate in patients with acute kidney failure, extremes of body mass or the acutely ill. [email or web address] Blood specimen (specimen) 06/29/2018 12:40 AM EST 06/29/2018 12:57 AM EST Narrative Resulting Agency Comment Spec In Lab Wendy Alan STATION MASTER CHEMISTRY ORDERABL ES [facility] [place] [address] * (ABNORMAL) BLOOD GAS 2 ARTERIAL (06/28/2018 6:41 PM EST) pH, Arterial 7.38 7.35 - 7.45 [facility] PCO2, Arterial 44 35 - 45 mmHg [facility] PO2, Arterial 134(H) 85 - 104 mmHg [facility] Bicarbonate, Arterial 25.1 20.0 - 26.0 mmol/L [facility] [place] [place] Base Excess, Arterial -0.1 -3.0 - 3.0 mmol/L [facility] Hgb Blood Gas 11.2(L) 11.7 - 15.5 gm/dL [facility] Oxyhemoglobin, Arterial 97.7(H) 94.0 - 97.0 % [facility] Carboxyhemoglob in, Arterial 0.1 % [facility] Comment: Nonsmokers: 0.5-1.5% COHB Smokers: Variable, but usually less than 10% Toxic: 20-30% COHB Lethal: Greater than 60% COHB Methemoglobin, Arterial 0.2 <=1.5 % [facility] Na Whole Blood 133(L) 135 - 145 mmol/L [facility] K Whole Blood 3.7 3.5 - 5.0 mmol/L [facility] Comment: Please note: Patients with WBC >100,000 may have falsely elevated Potassium levels. Contact the Clinical Chemistry Laboratory if there are any questions. ICa Whole Blood 1.13(L) 1.15 - 1.33 mmol/L [facility] Comment: Note: ??Total bilirubin higher than 20 mg/dL may lead to falsely low ionized calcium. CL Whole Blood 99 98 - 107 mmol/L [facility] Gluc Whole Bld 104 65 - 199 mg/dL [facility] Comment:Diabetes: >=200 mg/d L plus symptoms. Lactate WB 1.0 0.5 - 2.2 mmol/L [facility] FIO2 Art 80 % [facility] PF Ratio Art 168 [facility] Blood specimen (specimen) 06/28/2018 6:41 PM EST 06/28/2018 6:41 PM EST Vipin Flower MD POINT OF CARE TEST O RDERAZORAIDA [facility] [place] [address] * (ABNORMAL) BLOOD GAS 2 ARTERIAL (06/28/2018 4:44 PM EST) pH, Arterial 7.33(L) 7.35 - 7.45 [facility] PCO2, Arterial 50(H) 35 - 45 mmHg [facility] [facility] PO2, Arterial 91 85 - 104 mmHg [facility] Bicarbonate, Arterial 25.8 20.0 - 26.0 mmol/L [facility] Base Excess, Arterial -0.2 -3.0 - 3.0 mmol/L [facility] Hgb Blood Gas 11.6(L) 11.7 - 15.5 gm/dL [facility] Oxyhemoglobin, Arterial 94.9 94.0 - 97.0 % [facility] Carboxyhemoglob in, Arterial 0.4 % [facility] Comment: Nonsmokers: 0.5-1.5% COHB Smokers: Variable, but usually less than 10% Toxic: 20-30% COHB Lethal: Greater than 60% COHB Methemoglobin, Arterial 0.2 <=1.5 % [facility] Na Whole Blood 131(L) 135 - 145 mmol/L [facility] K Whole Blood 3.9 3.5 - 5.0 mmol/L [facility] Comment: Please note: Patients with WBC >100,000 may have falsely elevated Potassium levels. Contact the Clinical Chemistry Laboratory if there are any questions. ICa Whole Blood 1.10(L) 1.15 - 1.33 mmol/L [facility] Comment: Note: ??Total bilirubin higher than 20 mg/dL may lead to falsely low ionized calcium. CL Whole Blood 97(L) 98 - 107 mmol/L [facility] Gluc Whole Bld 107 65 - 199 mg/dL [facility] Comment:Diabetes: >=200 mg/d L plus symptoms. Lactate WB 1.4 0.5 - 2.2 mmol/L [facility] FIO2 Art 100 % [facility] PF Ratio Art 91 [facility] Blood specimen (specimen) 06/28/2018 4:44 PM EST 06/28/2018 4:44 PM EST Vipin Flower MD POINT OF CARE TEST O RDERABLES [facility] [place] [address] * XR Chest PA or AP 1 view (06/28/2018 4:36 PM EST) Anatomical Region Laterality Modality Chest N/A Digital Radiogra phy Impressions 06/28/2018 4:59 PM EST 1. ??Appropriately positioned endotracheal tube. 2. ??Slight interval improvement in bilateral patchy airspace opacities consistent with pneumonia. 3. ??Distal tip of enteric tube within the distal esophagus, recommend advancing it by about 15 cm. I have personally reviewed the image(s) and the residents interpretation and agree with the findings, Savannah Sifuentes at 06/28/2018 4:59 PM Thank you for letting us participate in the care of this patient. For questions regarding this report, please contact the number below. ? Electronically signed by: Savannah Sifuentes [facility] ([phone]), at 06/28/2018 4:59 PM Narrative 06/28/2018 4:59 PM EST EXAMINATION: XR CHEST PA OR AP 1 VIEW CLINICAL HISTORY: s/p intubation, hypoxic respiratory failure TECHNIQUE: AP portable 45 degrees upright view of the chest COMPARISON: Chest radiograph 06/26/2018 FINDINGS: An endotracheal tube tip terminates approximately 4 cm above the jenaro. Distal tip of an enteric tube projects just above the diaphragm. There is diffuse right greater than left patchy opacification of both lungs, slightly improved when compared with most recent chest radiograph 06/26/2018. Cardiomediastinal silhouette is stable. No pneumothorax identified. There is blunting of the bilateral costophrenic angles. Cannot exclude small pleural effusion. No interval osseous change. Procedure Note Savannah Hyatt MD - 06/28/2018 EXAMINATION: XR CHEST PA OR AP 1 VIEW CLINICAL HISTORY: s/p intubation, hypoxic respiratory failure TECHNIQUE: AP portable 45 degrees upright view of the chest COMPARISON: Chest radiograph 06/26/2018 FINDINGS: An endotracheal tube tip terminates approximately 4 cm above the jenaro.Distal tip of an enteric tube projects just above the diaphragm. There is diffuse right greater than left patchy opacification of bothlungs, slightly improved when compared with most recent chest radiograph06/26/2018. Cardiomediastinal silhouette is stable. No pneumothorax identified. Thereis blunting of the bilateral costophrenic angles. Cannot exclude smallpleural effusion. No interval osseous change. IMPRESSION 1. Appropriately positioned endotracheal tube. 2. Slight interval improvement in bilateral patchy airspace opacities consistent with pneumonia. 3. Distal tip of enteric tube within the distal esophagus, recommendadvancing it by about 15 cm. I have personally reviewed the image(s) and the residents interpretationand agree with the findings, Savannah Sifuentes at 06/28/2018 4:59 PM Thank you for letting us participate in the care of this patient. Forquestions regarding this report, please contact the number below. Electronically signed by: Savannah Sifuentes [facility]([phone]), at 06/28/2018 4:59 PM Vipin Flower MD IMG DX ORDERABLES * Insert Arterial Line (06/28/2018 3:37 PM EST) Narrative Vipin Flower MD - 06/28/2018 3:37 PM EST Vipin Flower MD ? 06/28/2018 ??3:38 PM Arterial Line Placement Procedure Note Indication for Procedure: Arterial line was placed for invasive blood pressure monitoring and arterial blood gases. Procedure Diagnosis: ARDS Location of Procedure: Critical Care. Risks and Benefits: The risks and benefits of this procedure were reviewed and informed consent was obtained. ?? Time Out: Prior to the start of the procedure, the patient's identity, intended procedure, site/side, correct patient positioning and presence of the site vipin was confirmed as applicable. The medical history and chart were reviewed to rule out potential contraindications to the planned procedure. ?? Hand Hygiene: The imaging assistant did perform hand hygiene prior to arterial line insertion. Procedure Prep: Sterile draping was applied. Skin was prepped with chlorhexidine. Procedure Details: A 20 gauge, 2 inch catheter was placed in the right radial artery and secured with steri-strips. Tegaderm was applied.. There was 1 attempt. ?? Findings: There were no procedure complications. Blood was drawn with ease. Good wave form. Procedure Comments: none Vipin Flower MD PROCEDURE/MINOR SURG ICAL ORDERABLES * Potassium (06/28/2018 10:45 AM EST) Potassium 4.2 3.5 - 5.0 mmol/L [facility] Comment: Please note: ??Patients with WBC >100,000 may have falsely elevated Potassium levels. ??For accurate Potassium quantification in these patients send serum separator tube (gold top) for subsequent determinations. ??Contact the Clinical Chemistry Laboratory if there are any questions. Blood specimen (specimen) 06/28/2018 10:45 AM EST 06/28/2018 11:00 AM EST Narrative Resulting Agency Comment Spec In Lab Catarino Yin STATION MASTER CHEMISTRY ORDERA BLES [facility] [place] [address] * Differential, Automated (06/28/2018 5:00 AM EST) Neutrophil % 79.0 % [facility] Neutrophil Absolute 5.70 1.70 - 6.10 x10(3)/[facility] Lymph % 15.7 % [facility] Lymphocytes Abs 1.1 0.9 - 3.2 x10(3)/[facility] Monocyte % 3.9 % [facility] Monocyte Abs 0.3 0.3 - 0.9 x10(3)/[facility] Eos % 0.7 % [facility] Eosinophils Abs 0.0 0.0 - 0.4 x10(3)/[facility] Basophil % 0.1 % [facility] Baso Absolute 0.0 0.0 - 0.1 x10(3)/[facility] Immature Gran % 0.60 % [facility] Comment: Immature granulocytes(IG's)percentage and absolute count will include metamyelocytes, myelocytes, and promyelocytes. Blood smears from CBCs yielding IG's will be scanned manually for concordance. If this scan disagrees with the automated IG or if promyelocytes are noted, a manual differential will be performed. Immature Gran Absolute 0.04 0.00 - 0.04 x10(3)/[facility] Blood specimen (specimen) 06/28/2018 5:00 AM EST 06/28/2018 5:25 AM EST Narrative Resulting Agency Comment Spec In Lab Wendy Alan STATION MASTER HEMATOLOGY ORDERAB LES [facility] [place] [address] * (ABNORMAL) Hemogram (06/28/2018 5:00 AM EST) White Blood Cell 7.2 4.0 - 9.5 x10(3)/[facility] Red Blood Cell 3.35(L) 4.00 - 5.21 x10(6)/[facility] Hemoglobin 10.0(L) 11.7 - 15.5 gm/dL [facility] Hematocrit 29.6(L) 35.7 - 45.8 % [facility] Mean Cell Volume 88.4 82.6 - 94.4 fL [facility] Mean Cell Hemoglobin 29.9 27.1 - 32.0 pg [facility] Mean Cell Hemoglobin Concentration 33.8 31.7 - 35.0 gm/dL [facility] Platelet 233 145 - 357 x10(3)/mc L [facility] RDW Standard Deviation 43.5 37.0 - 46.0 fL [facility] RDW coefficient of variation 13.4 11.5 - 14.1 % [facility] Mean Platelet Volume 10.9 7.6 - 12.9 fL [facility] NRBC% auto 0.0 % [facility] NRBC Absolute 0.000 0.000 - 0.000 x10(3)/mc L [facility] Blood specimen (specimen) 06/28/2018 5:00 AM EST 06/28/2018 5:25 AM EST Narrative Resulting Agency Comment Spec In Lab Wendy Alan STATION MASTER HEMATOLOGY ORDERAB LES Performing Organization Address [facility] Co de Phone Number [facility] [place] [address] * Phosphorus (06/28/2018 5:00 AM EST) Phosphorus 3.1 2.5 - 4.5 mg/dL [facility] Blood specimen (specimen) 06/28/2018 5:00 AM EST 06/28/2018 5:25 AM EST Narrative Resulting Agency Comment Spec In Lab Wendy Kasandra Dayanna STATION MASTER CHEMISTRY ORDERABL ES Performing Organization Address [facility] Co de Phone Number [facility] [place] [address] * Magnesium (06/28/2018 5:00 AM EST) Magnesium 0.88 0.69 - 1.07 mmol/L [facility] Blood specimen (specimen) 06/28/2018 5:00 AM EST 06/28/2018 5:25 AM EST Narrative Resulting Agency Comment Spec In Lab Wendy Alan STATION MASTER CHEMISTRY ORDERABL ES [facility] [place] [address] * (ABNORMAL) Basic Metabolic Panel (non-fasting) (06/28/2018 5:00 AM EST) Glucose 97 65 - 199 mg/dL [facility] Comment:Diabetes: >=200 mg/d L plus symptoms Blood Urea Nitrogen 11 8 - 18 mg/dL [facility] Creatinine 0.53(L) 0.70 - 1.20 mg/dL [facility] Sodium 130(L) 135 - 145 mmol/L [facility] Potassium 3.9 3.5 - 5.0 mmol/L [facility] Comment: Please note: ??Patients with WBC >100,000 may have falsely elevated Potassium levels. ??For accurate Potassium quantification in these patients send serum separator tube (gold top) for subsequent determinations. ??Contact the Clinical Chemistry Laboratory if there are any questions. Chloride 91(L) 98 - 107 mmol/L [facility] Carbon Dioxide 26 22 - 31 mmol/L [facility] Anion Gap 13 5 - 15 mmol/L [facility] Calcium 8.4(L) 8.5 - 10.5 mg/dL [facility] Est Glomerular Filtration Rate 103 >=60 mL/min/1. 73 m?? [facility] Comment: The eGFR was calculated using the CKD-EPI equation. As with all creatinine based estimates of kidney function, eGFR values calculated with the CKD-EPI equation are not accurate in patients with acute kidney failure, extremes of body mass or the acutely ill. [email or web address] eGFR 120 >=60 mL/min/1. 73 m?? [facility] Comment: The eGFR was calculated using the CKD-EPI equation. As with all creatinine based estimates of kidney function, eGFR values calculated with the CKD-EPI equation are not accurate in patients with acute kidney failure, extremes of body mass or the acutely ill. [email or web address] Blood specimen (specimen) 06/28/2018 5:00 AM EST 06/28/2018 5:25 AM EST Narrative Resulting Agency Comment Spec In Lab Wendy Alan APRN CHEMISTRY ORDERABL ES Performing Organization Address [facility] Co de Phone Number [facility] [place] [address] * POCT Glucose (06/27/2018 6:34 PM EST) Glucose, POC 103 65 - 199 mg/dL [facility] Comment: Supplemental ranges: <140 mg/dL before meals <180 mg/dL all other times of the day Blood specimen (specimen) 06/27/2018 6:34 PM EST 06/27/2018 6:34 PM EST Vipin Flower MD POINT OF CARE TEST O RDERABLES Performing Organization Address [facility] Co de Phone Number [facility] [place] [address] * POCT Glucose (06/27/2018 11:31 AM EST) Glucose, POC 105 65 - 199 mg/dL [facility] Comment: Supplemental ranges: <140 mg/dL before meals <180 mg/dL all other times of the day Blood specimen (specimen) 06/27/2018 11:31 AM EST 06/27/2018 11:31 AM EST Vipin Flower MD POINT OF CARE TEST O RDERAZORAIDA Performing Organization Address City/[facility]/ZIP Co de Phone Number [facility] [place] [address] * POCT Glucose (06/27/2018 7:38 AM EST) [facility] Glucose, POC 112 65 - 199 mg/dL [facility] Comment: Supplemental ranges: <140 mg/dL before meals <180 mg/dL all other times of the day Blood specimen (specimen) 06/27/2018 7:38 AM EST 06/27/2018 7:38 AM EST Ernesto Arauz MD POINT OF CARE TEST O RDERABLES Performing Organization Address City/[facility]/ZIP Co de Phone Number [facility] [place] [address] * Scan, Peripheral Blood (06/27/2018 5:10 AM EST) [facility] Plat estimate Decreased [facility] RBC Morphology Normal [facility] Blood specimen (specimen) 06/27/2018 5:10 AM EST 06/27/2018 5:23 AM EST Narrative Resulting Agency Comment Spec In Lab Wendy Alan APRN HEMATOLOGY ORDERAB LES Performing Organization Address [facility]/ZIP Co de Phone Number [facility] [place] [address] * (ABNORMAL) Differential, Automated (06/27/2018 5:10 AM EST) [facility] Neutrophil % 85.7 % [facility] Neutrophil Absolute 6.04 1.70 - 6.10 x10(3)/mc L [facility] Lymph % 10.8 % [facility] Lymphocytes Abs 0.8(L) 0.9 - 3.2 x10(3)/mc L [facility] Monocyte % 2.7 % [facility] Monocyte Abs 0.2(L) 0.3 - 0.9 x10(3)/mc L [facility] Eos % 0.0 % [facility] Eosinophils Abs 0.0 0.0 - 0.4 x10(3)/mc L [facility] Basophil % 0.1 % [facility] Baso Absolute 0.0 0.0 - 0.1 x10(3)/[facility] Immature Gran % 0.70 % [facility] Comment: Immature granulocytes(IG's)percentage and absolute count will include metamyelocytes, myelocytes, and promyelocytes. Blood smears from CBCs yielding IG's will be scanned manually for concordance. If this scan disagrees with the automated IG or if promyelocytes are noted, a manual differential will be performed. Immature Gran Absolute 0.05(H) 0.00 - 0.04 x10(3)/[facility] Blood specimen (specimen) 06/27/2018 5:10 AM EST 06/27/2018 5:23 AM EST Narrative Resulting Agency Comment Spec In Lab Wendy Alan APRN HEMATOLOGY ORDERAB LES Performing Organization Address City/State/[facility] Co de Phone Number [facility] [place] [address] * (ABNORMAL) Hemogram (06/27/2018 5:10 AM EST) White Blood Cell 7.0 4.0 - 9.5 x10(3)/[facility] Red Blood Cell 3.60(L) 4.00 - 5.21 x10(6)/[facility] Hemoglobin 10.5(L) 11.7 - 15.5 gm/dL [facility] Hematocrit 31.4(L) 35.7 - 45.8 % [facility] Mean Cell Volume 87.2 82.6 - 94.4 fL [facility] Mean Cell Hemoglobin 29.2 27.1 - 32.0 pg [facility] Mean Cell Hemoglobin Concentration 33.4 31.7 - 35.0 gm/dL [facility] Platelet 204 145 - 357 x10(3)/[facility] RDW Standard Deviation 42.3 37.0 - 46.0 fL [facility] RDW coefficient of variation 13.2 11.5 - 14.1 % [facility] Mean Platelet Volume 10.7 7.6 - 12.9 fL [facility] NRBC% auto 0.0 % [facility] NRBC Absolute 0.000 0.000 - 0.000 x10(3)/mc L [facility] Blood specimen (specimen) 06/27/2018 5:10 AM EST 06/27/2018 5:23 AM EST Narrative Resulting Agency Comment Spec In Lab Wendy Slaughter Alan STATION MASTER HEMATOLOGY ORDERAB LES Performing Organization Address [facility] Co de Phone Number [facility] [place] [address] * Phosphorus (06/27/2018 5:10 AM EST) Phosphorus 3.6 2.5 - 4.5 mg/dL [facility] Blood specimen (specimen) 06/27/2018 5:10 AM EST 06/27/2018 5:23 AM EST Narrative Resulting Agency Comment Spec In Lab Wendy Slaughter Alan STATION MASTER CHEMISTRY ORDERABL ES Performing Organization Address [facility] de Phone Number [facility] [place] [address] * Magnesium (06/27/2018 5:10 AM EST) Magnesium 0.85 0.69 - 1.07 mmol/L [facility] Blood specimen (specimen) 06/27/2018 5:10 AM EST 06/27/2018 5:23 AM EST Narrative Resulting Agency Comment Spec In Lab Wendy Slaughter Alan STATION MASTER CHEMISTRY ORDERABL ES Performing Organization Address [facility] de Phone Number [facility] [place] [address] * (ABNORMAL) Basic Metabolic Panel (non-fasting) (06/27/2018 5:10 AM EST) Glucose 111 65 - 199 mg/dL [facility] Comment:Diabetes: >=200 mg/d L plus symptoms Blood Urea Nitrogen 11 8 - 18 mg/dL [facility] Creatinine 0.66(L) 0.70 - 1.20 mg/dL [facility] Sodium 129(L) 135 - 145 mmol/L [facility] Potassium 3.7 3.5 - 5.0 mmol/L [facility] Comment: Please note: ??Patients with WBC >100,000 may have falsely elevated Potassium levels. ??For accurate Potassium quantification in these patients send serum separator tube (gold top) for subsequent determinations. ??Contact the Clinical Chemistry Laboratory if there are any questions. Chloride 91(L) 98 - 107 mmol/L [facility] Carbon Dioxide 25 22 - 31 mmol/L [facility] Anion Gap 13 5 - 15 mmol/L [facility] Calcium 8.3(L) 8.5 - 10.5 mg/dL [facility] Est Glomerular Filtration Rate 96 >=60 mL/min/1. 73 m?? [facility] Comment: The eGFR was calculated using the CKD-EPI equation. As with all creatinine based estimates of kidney function, eGFR values calculated with the CKD-EPI equation are not accurate in patients with acute kidney failure, extremes of body mass or the acutely ill. [email or web address] eGFR 111 >=60 mL/min/1. 73 m?? [facility] Comment: The eGFR was calculated using the CKD-EPI equation. As with all creatinine based estimates of kidney function, eGFR values calculated with the CKD-EPI equation are not accurate in patients with acute kidney failure, extremes of body mass or the acutely ill. [email or web address] Blood specimen (specimen) 06/27/2018 5:10 AM EST 06/27/2018 5:23 AM EST Narrative Resulting Agency Comment Spec In Lab Wendy Slaughter Alan STATION MASTER CHEMISTRY ORDERABL ES Performing Organization Address [facility] Co de Phone Number [facility] [place] [address] * POCT Glucose (06/27/2018 5:02 AM EST) Glucose, POC 115 65 - 199 mg/dL [facility] Comment: Supplemental ranges: <140 mg/dL before meals <180 mg/dL all other times of the day Blood specimen (specimen) 06/27/2018 5:02 AM EST 06/27/2018 5:02 AM EST Ernesto Arauz MD POINT OF CARE TEST O RDERAZORAIDA Performing Organization Address [facility] Co de Phone Number [facility] [place] [address] * POCT Glucose (06/26/2018 11:14 PM EST) Glucose, POC 121 65 - 199 mg/dL [facility] Comment: Supplemental ranges: <140 mg/dL before meals <180 mg/dL all other times of the day Blood specimen (specimen) 06/26/2018 11:14 PM EST 06/26/2018 11:14 PM EST Ernesto Arauz MD POINT OF CARE TEST O ARVIND Performing Organization Address [facility] Co de Phone Number [facility] [place] [address] * POCT Glucose (06/26/2018 8:23 PM EST) Glucose, POC 160 65 - 199 mg/dL [facility] Comment: Supplemental ranges: <140 mg/dL before meals <180 mg/dL all other times of the day Blood specimen (specimen) 06/26/2018 8:23 PM EST 06/26/2018 8:23 PM EST Ernesto Arauz MD POINT OF CARE TEST O RDERABLES [facility] [place] [address] * (ABNORMAL) BLOOD GAS 2 ARTERIAL (06/26/2018 6:33 PM EST) pH, Arterial 7.52(H) 7.35 - 7.45 [facility] PCO2, Arterial 31(L) 35 - 45 mmHg [facility] PO2, Arterial 59(L) 85 - 104 mmHg [facility] Bicarbonate, Arterial 24.4 20.0 - 26.0 mmol/L [facility] Base Excess, Arterial 1.5 -3.0 - 3.0 mmol/L [facility] Hgb Blood Gas 11.6(L) 11.7 - 15.5 gm/dL [facility] Oxyhemoglobin, Arterial 90.9(L) 94.0 - 97.0 % [facility] Carboxyhemoglob in, Arterial 0.7 % [facility] Comment: Nonsmokers: 0.5-1.5% COHB Smokers: Variable, but usually less than 10% Toxic: 20-30% COHB Lethal: Greater than 60% COHB Methemoglobin, Arterial 0.5 <=1.5 % [facility] Na Whole Blood 125(L) 135 - 145 mmol/L [facility] K Whole Blood 3.9 3.5 - 5.0 mmol/L [facility] Comment: Please note: Patients with WBC >100,000 may have falsely elevated Potassium levels. Contact the Clinical Chemistry Laboratory if there are any questions. ICa Whole Blood 1.05(L) 1.15 - 1.33 mmol/L [facility] Comment: Note: ??Total bilirubin higher than 20 mg/dL may lead to falsely low ionized calcium. CL Whole Blood 93(L) 98 - 107 mmol/L [facility] Gluc Whole Bld 127 65 - 199 mg/dL [facility] Comment:Diabetes: >=200 mg/d L plus symptoms. Lactate WB 1.3 0.5 - 2.2 mmol/L [facility] FIO2 Art 45 % [facility] PF Ratio Art 131 [facility] Blood specimen (specimen) 06/26/2018 6:33 PM EST 06/26/2018 6:33 PM EST Ernesto Arauz MD POINT OF CARE TEST O ARVIND Performing Organization Address [facility] Co de Phone Number [facility] [place] [address] * POCT Glucose (06/26/2018 5:06 PM EST) Glucose, POC 133 65 - 199 mg/dL [facility] Comment: Supplemental ranges: <140 mg/dL before meals <180 mg/dL all other times of the day Blood specimen (specimen) 06/26/2018 5:06 PM EST 06/26/2018 5:06 PM EST Ernesto Arauz MD POINT OF CARE TEST O ARVIND Performing Organization Address [facility] [facility] Co de Phone Number [facility] [place] [address] * XR Chest PA or AP 1 view (06/26/2018 2:48 PM EST) Anatomical Region Laterality Modality Chest N/A Digital Radiogra phy Impressions 06/26/2018 2:56 PM EST Extensive bilateral pulmonary infiltrates similar to the studies of earlier the same day Thank you for letting us participate in the care of this patient. For questions regarding this report, please contact the number below. ? Electronically signed by: ARCADIO CHAPMAN [facility] ([phone]), at 06/26/2018 2:56 PM Narrative 06/26/2018 2:56 PM EST EXAMINATION: XR CHEST PA OR AP 1 VIEW CLINICAL HISTORY: hypoxia TECHNIQUE: 1 view of the chest 1440 hours COMPARISON: CT 06/26/2018 chest x-ray 06/26/2018 FINDINGS: AP portable chest 1440 hours continues to demonstrate widespread multifocal areas of airspace infiltrates consistent with bilateral pneumonia with little change in appearance of the chest along for the AP technique. The heart size is normal, vascularity is obscured. Air bronchograms are evident centrally, bony structures are intact Procedure Note Arcadio Chapman MD - 06/26/2018 EXAMINATION: XR CHEST PA OR AP 1 VIEW CLINICAL HISTORY: hypoxia TECHNIQUE: 1 view of the chest 1440 hours COMPARISON: CT 06/26/2018 chest x-ray 06/26/2018 FINDINGS: AP portable chest 1440 hours continues to demonstrate widespreadmultifocal areas of airspace infiltrates consistent with bilateral pneumonia withlittle change in appearance of the chest along for the AP technique. The heartsize is normal, vascularity is obscured. Air bronchograms are evident centrally,bony structures are intact IMPRESSION Extensive bilateral pulmonary infiltrates similar to the studies ofnelida the same day Thank you for letting us participate in the care of this patient. Forquestions regarding this report, please contact the number below. Wendy Alan APRN IMG DX ORDERABLES * Urine culture Indwelling Catheter Urine (06/26/2018 12:26 PM EST) Urine Culture No growth (Less than 1,000 cfu/ml). [facility] Urine specimen (specimen) 06/26/2018 12:26 PM EST 06/26/2018 1:46 PM EST Narrative Resulting Agency Comment Spec In Lab Wendy Alan APRN MICROBIOLOGY - GEN ERAL ORDERABLES Performing Organization Address City/State/[facility] Co de Phone Number [facility] [place] [address] * Urine Hold (06/26/2018 12:25 PM EST) Hold, Urine Sample in lab. [facility] Urine specimen (specimen) Urine / Unknown 06/26/2018 12:25 PM EST 06/26/2018 12:53 PM EST Wendy Alan STEPHANIE URINE ORDERABLES Performing Organization Address [facility] Co de Phone Number [facility] [place] [address] * Legionella Urinary Antigen (06/26/2018 12:25 PM EST) Legionella Urinary Antigen Negative Negative [facility] Comment: A negative Legionella Urinary Antigen by EIA suggests no recent or current infection with L. pneumophila Serogroup 1. Antigen may not be present in urine in early infection, and the level of antigen present in the urine may be below the detection limit of the test. Sensitivity: 95% Specificity 95%. Urine specimen (specimen) 06/26/2018 12:25 PM EST 06/26/2018 1:46 PM EST Narrative Resulting Agency Comment Spec In Lab Wendy Slaughter Dayanna BROWN MICROBIOLOGY - GEN ERAL ORDERABLES Performing Organization Address [facility] Co de Phone Number [facility] [place] [address] * (ABNORMAL) Respiratory Panel PCR (06/26/2018 11:40 AM EST) Respiratory Panel Source PAPER BUNDLER Swab [facility] Respiratory Panel PCR Positive(A) Negative [facility] Comment: Respiratory Panels are performed on the [employer], using multiplexed PCR nucleic acid detection. ??Negative results do not preclude respiratory infection and should not be used as the sole basis for diagnosis, treatment or other management decisions. Adenovirus Not Detected Not Detected [facility] Coronavirus HKU1 Not Detected Not Detected [facility] Coronavirus NL63 Not Detected Not Detected [facility] Coronavirus 229E Not Detected Not Detected [facility] Coronavirus OC43 Not Detected Not Detected [facility] Human Metapneumovirus Not Detected Not Detected [facility] [place] Human Rhinovirus/Enterov irus Not Detected Not Detected [facility] Influenza A Detected(A) Not Detected [facility] Influenza A H1 Not Detected Not Detected [facility] [place] Influenza A H1-2009 Detected(A) Not Detected [facility] Influenza A H3 Not Detected Not Detected [facility] Influenza B Not Detected Not Detected [facility] Parainfluenza 1 Not Detected Not Detected [facility] [place] Parainfluenza 2 Not Detected Not Detected [facility] Parainfluenza 3 Not Detected Not Detected [facility] Parainfluenza 4 Not Detected Not Detected [facility] Respiratory Syncytial Virus Not Detected Not Detected [facility] Chlamydophila pneumoniae Not Detected Not Detected [facility] Mycoplasma pneumoniae Not Detected Not Detected [facility] Nasopharyngeal swab (specimen) 06/26/2018 11:40 AM EST 06/26/2018 12:04 PM EST Narrative Resulting Agency Comment Spec In Lab Wendy L Alan STATION MASTER MICROBIOLOGY - GEN ERAL ORDERABLES Performing Organization Address City/State/[facility] Co de Phone Number [facility] [place] [address] * EKG 12 Lead (06/26/2018 11:25 AM EST) Ventricular rate 84 BPM MUSE SYSTEM Atrial Rate 84 BPM MUSE SYSTEM P-R Interval 134 ms MUSE SYSTEM QRS Duration 140 ms MUSE SYSTEM Q-T Interval 398 ms MUSE SYSTEM QTC Calculated (Bezet) 470 ms MUSE SYSTEM Calculated P [place] 53 degrees MUSE SYSTEM Calculated R [place] 32 degrees MUSE SYSTEM Calculated T [place] 52 degrees MUSE SYSTEM INTERPRETATION Normal sinus rhythm Left bundle branch block Abnormal ECG No previous ECGs available Confirmed by MD Freddy, Jesus Wei ([id number]) on 06/26/2018 1:10:58 PM MUSE SYSTEM 06/26/2018 11:2 5 AM EST 06/26/2018 1:10 PM EST Wendy Alan STATION MASTER ECG ORDERABLES MUSE SYSTEM * (ABNORMAL) BLOOD GAS 2 ARTERIAL (06/26/2018 11:08 AM EST) pH, Arterial 7.46(H) 7.35 - 7.45 [facility] PCO2, Arterial 35 35 - 45 mmHg [facility] PO2, Arterial 47(Critica l) 85 - 104 mmHg [facility] Bicarbonate, Arterial 24.4 20.0 - 26.0 mmol/L [facility] Base Excess, Arterial 0.5 -3.0 - 3.0 mmol/L [facility] Hgb Blood Gas 11.4(L) 11.7 - 15.5 gm/dL [facility] Oxyhemoglobin, Arterial 82.6(L) 94.0 - 97.0 % [facility] Carboxyhemoglob in, Arterial 0.6 % [facility] Comment: Nonsmokers: 0.5-1.5% COHB Smokers: Variable, but usually less than 10% Toxic: 20-30% COHB Lethal: Greater than 60% COHB Methemoglobin, Arterial 0.5 <=1.5 % [facility] Na Whole Blood 124(L) 135 - 145 mmol/L [facility] K Whole Blood 3.7 3.5 - 5.0 mmol/L [facility] Comment: Please note: Patients with WBC >100,000 may have falsely elevated Potassium levels. Contact the Clinical Chemistry Laboratory if there are any questions. ICa Whole Blood 1.06(L) 1.15 - 1.33 mmol/L [facility] Comment: Note: ??Total bilirubin higher than 20 mg/dL may lead to falsely low ionized calcium. CL Whole Blood 93(L) 98 - 107 mmol/L [facility] Gluc Whole Bld 129 65 - 199 mg/dL [facility] Comment:Diabetes: >=200 mg/d L plus symptoms. Lactate WB 1.0 0.5 - 2.2 mmol/L [facility] FIO2 Art 100 % [facility] PF Ratio Art 47 [facility] Blood specimen (specimen) 06/26/2018 11:08 AM EST 06/26/2018 11:08 AM EST Ernesto Arauz MD POINT OF CARE TEST O RDERABLES Performing Organization Address [facility]/ZIP Co de Phone Number [facility] [place] [address] * Gold Tube HOLD (06/26/2018 11:05 AM EST) Gold Hold Sample in lab. [facility] Blood specimen (specimen) Venous Draw / Unknown 06/26/2018 11:05 AM EST 06/26/2018 11:26 AM EST Wendy Alan APRN CHEMISTRY ORDERABL ES Performing Organization Address [facility] Co de Phone Number [facility] [place] [address] * (ABNORMAL) Differential, Automated (06/26/2018 11:05 AM EST) Neutrophil % 89.8 % [facility] Neutrophil Absolute 8.10(H) 1.70 - 6.10 x10(3)/mc L [facility] Lymph % 7.4 % [facility] Lymphocytes Abs 0.7(L) 0.9 - 3.2 x10(3)/mc L [facility] Monocyte % 1.9 % [facility] Monocyte Abs 0.2(L) 0.3 - 0.9 x10(3)/mc L [facility] Eos % 0.0 % [facility] Eosinophils Abs 0.0 0.0 - 0.4 x10(3)/[facility]ORAT[facility] Basophil % 0.2 % [facility] Baso Absolute 0.0 0.0 - 0.1 x10(3)/[facility] LABORATORY Immature Gran % 0.70 % [facility] Comment: Immature granulocytes(IG's)percentage and absolute count will include metamyelocytes, myelocytes, and promyelocytes. Blood smears from CBCs yielding IG's will be scanned manually for concordance. If this scan disagrees with the automated IG or if promyelocytes are noted, a manual differential will be performed. Immature Gran Absolute 0.06(H) 0.00 - 0.04 x10(3)/[facility] LAB[facility]AT[facility] Blood specimen (specimen) 06/26/2018 11:05 AM EST 06/26/2018 11:25 AM EST Narrative Resulting Agency Comment Spec In Lab Wendy Alan STATION MASTER HEMATOLOGY ORDERAB LES [facility] [place] [address] * (ABNORMAL) Hemogram (06/26/2018 11:05 AM EST) White Blood Cell 9.0 4.0 - 9.5 x10(3)/[facility] LAB[facility]ATORY Red Blood Cell 3.66(L) 4.00 - 5.21 x10(6)/[facility] Hemoglobin 10.9(L) 11.7 - 15.5 gm/dL [facility] Hematocrit 32.0(L) 35.7 - 45.8 % [facility] Mean Cell Volume 87.4 82.6 - 94.4 fL [facility] Mean Cell Hemoglobin 29.8 27.1 - 32.0 pg [facility] Mean Cell Hemoglobin Concentration 34.1 31.7 - 35.0 gm/dL [facility] Platelet 185 145 - 357 x10(3)/mc L [facility] RDW Standard Deviation 41.7 37.0 - 46.0 [facility] RDW coefficient of variation 12.9 11.5 - 14.1 % [facility] Mean Platelet Volume 10.8 7.6 - 12.9 [facility] LABORATORY NRBC% auto 0.0 % [facility] NRBC Absolute 0.000 0.000 - 0.000 x10(3)/mc L [facility] Blood specimen (specimen) 06/26/2018 11:05 AM EST 06/26/2018 11:25 AM EST Narrative Resulting Agency Comment Spec In Lab Wendy Alan STATION MASTER HEMATOLOGY ORDERAB LES Performing Organization Address City/[facility]/ZIP Co de Phone Number [facility] [place] [address] * (ABNORMAL) Hepatic Function Panel (06/26/2018 11:05 AM EST) Protein, Total 6.4 6.1 - 8.0 gm/dL [facility] Albumin 2.8(L) 3.2 - 5.2 gm/dL [facility] Aspartate Aminotransferase 34(H) 0 - 30 unit/L [facility] Alanine Aminotransferase 13 0 - 30 unit/L [facility] Alkaline Phosphatase 74 40 - 104 unit/L [facility] Bilirubin, Total 0.4 0.2 - 1.3 mg/dL [facility] Bilirubin, Direct 0.1 0.0 - 0.3 mg/dL [facility] Blood specimen (specimen) 06/26/2018 11:05 AM EST 06/26/2018 11:25 AM EST Narrative Resulting Agency Comment Spec In Lab Wendy Alan STATION MASTER CHEMISTRY ORDERABL ES Performing Organization Address City/[facility]/ZIP Co de Phone Number [facility] [place] [address] * Blood culture (06/26/2018 11:05 AM EST) Blood Culture No growth at 5 days. [facility] Blood specimen (specimen) STRUCTURE OF RIGHT FOREARM / Unknown 06/26/2018 11:05 AM EST 06/26/2018 12:06 PM EST Narrative Resulting Agency Comment Spec In Lab Wendy Alan STATION MASTER MICROBIOLOGY - BLO OD ORDERABLES Performing Organization Address [facility] Co de Phone Number [facility] [place] [address] * Phosphorus (06/26/2018 11:05 AM EST) Phosphorus 4.2 2.5 - 4.5 mg/dL [facility] Blood specimen (specimen) 06/26/2018 11:05 AM EST 06/26/2018 11:25 AM EST Narrative Resulting Agency Comment Spec In Lab Wendy Alan STATION MASTER CHEMISTRY ORDERABL ES Performing Organization Address [facility] Phone Number [facility] [place] [address] * Magnesium (06/26/2018 11:05 AM EST) Magnesium 0.78 0.69 - 1.07 mmol/L [facility] Blood specimen (specimen) 06/26/2018 11:05 AM EST 06/26/2018 11:25 AM EST Narrative Resulting Agency Comment Spec In Lab Wendy Alan STATION MASTER CHEMISTRY ORDERABL ES Performing Organization Address [facility] de Phone Number [facility] [place] [address] * (ABNORMAL) Basic Metabolic Panel (non-fasting) (06/26/2018 11:05 AM EST) Glucose 127 65 - 199 mg/dL [facility] Comment:Diabetes: >=200 mg/d L plus symptoms Blood Urea Nitrogen 14 8 - 18 mg/dL [facility] Creatinine 0.77 0.70 - 1.20 mg/dL [facility] Sodium 128(L) 135 - 145 mmol/L [facility] Potassium 4.0 3.5 - 5.0 mmol/L [facility] Comment: Please note: ??Patients with WBC >100,000 may have falsely elevated Potassium levels. ??For accurate Potassium quantification in these patients send serum separator tube (gold top) for subsequent determinations. ??Contact the Clinical Chemistry Laboratory if there are any questions. Chloride 89(L) 98 - 107 mmol/L [facility] Carbon Dioxide 24 22 - 31 mmol/L [facility] Anion Gap 15 5 - 15 mmol/L [facility] Calcium 8.3(L) 8.5 - 10.5 mg/dL [facility] Est Glomerular Filtration Rate 84 >=60 mL/min/1. 73 m?? [facility] Comment: The eGFR was calculated using the CKD-EPI equation. As with all creatinine based estimates of kidney function, eGFR values calculated with the CKD-EPI equation are not accurate in patients with acute kidney failure, extremes of body mass or the acutely ill. [email or web address] eGFR 97 >=60 mL/min/1. 73 m?? [facility] Comment: The eGFR was calculated using the CKD-EPI equation. As with all creatinine based estimates of kidney function, eGFR values calculated with the CKD-EPI equation are not accurate in patients with acute kidney failure, extremes of body mass or the acutely ill. [email or web address] Blood specimen (specimen) 06/26/2018 11:05 AM EST 06/26/2018 11:25 AM EST Narrative Resulting Agency Comment Spec In Lab Wendy Alan STATION MASTER CHEMISTRY ORDERABL ES [facility] [place] [address] * (ABNORMAL) Prothrombin Time (06/26/2018 11:05 AM EST) Prothrombin Time 16.3(H) 9.4 - 12.5 sec [facility] International Normalization Ratio 1.4 [facility] Comment: An INR <2.0 indicates adequate procoagulant activity for hemostasis in most patients without underlying bleeding disorders, though the INR may not adequately reflect hemostatic capacity in patients with liver disease and synthetic impairment. The recommended target INR range for therapeutic anticoagulation is 2.0 ? 3.0 for most applications, though lower and higher ranges may be appropriate depending on clinical circumstances. Blood specimen (specimen) 06/26/2018 11:05 AM EST 06/26/2018 11:25 AM EST Narrative Resulting Agency Comment Spec In Lab Wendy Alan STATION MASTER HEMATOLOGY ORDERAB LES Performing Organization Address [facility] Co de Phone Number [facility] [place] [address] * Lactate, whole blood, send to lab (Leb/CGP) (06/26/2018 11:05 AM EST) Lactate WB 1.4 0.5 - 2.2 mmol/L [facility] Blood specimen (specimen) 06/26/2018 11:05 AM EST 06/26/2018 11:24 AM EST Narrative Resulting Agency Comment Spec In Lab Wendy Alan STATION MASTER CHEMISTRY ORDERABL ES Performing Organization Address City/[facility] Co de Phone Number [facility] [place] [address] documented in this encounter Visit Diagnoses Diagnosis Influenza A (H1N1)- Primary Influenza due to identified 2009 H1N1 influenza virus with other respiratory manifestations Acute on chronic respiratory failure with hypoxia LBBB (left bundle branch block) Other left bundle branch block Physical deconditioning Debility, unspecified Acute respiratory distress syndrome (ARDS) Other pulmonary insufficiency, not elsewhere classified, following trauma and surgery Acute respiratory failure with hypoxia Acute respiratory failure Respiratory failure with hypoxia Acute respiratory failure Hyponatremia Hyposmolality and/or hyponatremia Acute respiratory distress syndrome (ARDS) Other pulmonary insufficiency, not elsewhere classified, following trauma and surgery documented in this encounter Admitting Diagnoses Diagnosis Respiratory failure with hypoxia Acute respiratory failure documented in this encounter Administered Medications Inactive Administered Medications - up to 3 most recent administrations Medication Order MAR Action Action Date Dose Rate Site acetaminophen (TYLENOL) 650 mg/20.3 mL oral liquid 650 mg 650 mg, Oral, EVERY 4 HOURS PRN, Starting on Dyan 06/30/18 at 1204, Until Dyan 07/14/18 at 1600, Fever, Maximum dose of acetaminophen is 4000 mg from all sources in 24 hours. , Routine Given 07/05/2018 8:12 AM EST 650 mg Given 07/01/2018 2:11 AM EST 650 mg Given 06/30/2018 1:05 PM EST 650 mg acetaminophen (TYLENOL) tablet 650 mg 650 mg, Oral, EVERY 4 HOURS PRN, Starting on 06/26/18 at 2109, Until Dyan 06/30/18 at 1204, Pain, Fever, Maximum dose of acetaminophen is 4000 mg from all sources in 24 hours., Routine Given 06/29/2018 2:14 PM EST 650 mg Given 06/27/2018 4:37 PM EST 650 mg Given 06/27/2018 5:02 AM EST 650 mg albuterol 90 mcg/actuation inhaler 6 puff 6 puff, Inhalation, EVERY 4 HOURS SCHEDULED, First dose on Wed06/29/18 at 0000, Until Discontinued, Routine, Is there a contraindication to the patient receiving this medication as a nebulizer? Yes Given 07/06/2018 7:41 AM EST 6 puffs Given 07/06/2018 3:12 AM EST 6 puffs Given 07/05/2018 11:25 PM EST 6 puffs azithromycin (ZITHROMAX) 500 mg in sodium chloride 0.9% 255 mL 500 mg, Intravenous, EVERY 24 HOURS, First dose on Dyan 06/30/18 at 0000, Until Discontinued, Administer over 60 Minutes, Indication for (Active or Suspected): Pneumonia ([facility]Care) New Bag 06/30/2018 12:43 AM EST 500 mg 255.1 mL/hr azithromycin (ZITHROMAX) tablet 500 mg 500 mg, Oral, NIGHTLY, First dose on Dyan 06/30/18 at 2100, Until Discontinued, Routine, Indication for (Active or Suspected): Pneumonia (Community) Given 07/01/2018 8:44 PM EST 500 mg Given 06/30/2018 9:35 PM EST 500 mg cefTRIAXone (ROCEPHIN) 2 g vial attach to sodium chloride 0.9% 50 mL Mini-Bag Plus 2 g, Intravenous, EVERY 24 HOURS, 6 doses, First dose on 06/26/18 at 1230, Last dose on Wed07/01/18 at 0800, Administer over 30 Minutes, Indication for (Active or Suspected): Pneumonia (Community) New Bag 06/29/2018 9:02 AM EST 2 g 100 mL/hr New Bag 06/28/2018 8:48 AM EST 2 g 100 mL/hr New Bag 06/27/2018 7:40 AM EST 2 g 100 mL/hr chlorhexidine (PERIDEX) 0.12 % oral solution 15 mL 15 mL, Oral, 2 TIMES DAILY, First dose on Dyan 06/30/18 at 1045, Until Discontinued, Routine Given 07/06/2018 8:36 AM EST 15 mLs Given 07/05/2018 8:55 PM EST 15 mLs Given 07/05/2018 8:12 AM EST 15 mLs cisatracurium (NIMBEX) 200 mg in sodium chloride 0.9% 220 mL infusion 3 mcg/kg/min ? 73.2 kg (14.4936 mL/hr, rounded to 14.5 mL/hr), Intravenous, CONTINUOUS, Starting on Dyan 06/30/18 at 1800, Until 07/02/18 at 1515, Routine New Bag 07/02/2018 8:42 AM EST 3 mcg/kg/min 14.5 mL/hr New Bag 07/01/2018 2:43 PM EST 3 mcg/kg/min 14.5 mL/hr New Bag 06/30/2018 7:37 PM EST 3 mcg/kg/min 14.5 mL/hr dexmedetomidine (PRECEDEX) 4 mcg/mL (standard Adult & Pedi greater than 20kg) infusion (premix) 0-1.7 mcg/kg/hr ? 75.6 kg (0-32.13 mL/hr, rounded to 0-32.1 mL/hr), Intravenous, CONTINUOUS, Starting on 07/03/18 at 1130, Until Dyan 07/07/18 at 0202, Titrate to sedation level of RASS Goal (-)1 to 0 . Start at 0.4 mcg/kg/hr, adjust by 0.4 mcg/kg/hr every 15 minutes. Once stable, reassess patient every 30 minutes. Rate not to exceed 1.7 mcg/kg/hr. Change rate only after assessing and documenting RASS. Reassess sedation scores within 30 minutes after every rate change. If under sedated, increase rate by 0.4 mcg/kg/hr. If over sedated, hold sedative until target RASS (-)1 to 0 achieved and then restart at 50% of previous rate. Call powerhouse electrician apprentice if goal not achieved at maximum rate., Routine Rate/Dose Change 07/06/2018 12:27 PM EST 0.4 mcg/kg/hr 7.6 mL/hr Rate/Dose Change 07/06/2018 11:21 AM EST 0.8 mcg/kg/hr 15. 1 mL/hr New Bag 07/06/2018 9:58 AM EST 1.2 mcg/kg/hr 22.7 mL/hr docusate sodium (COLACE) oral liquid 100 mg 100 mg, Oral, 2 TIMES DAILY, First dose on Wed06/28/18 at 2100, Until Discontinued, Routine Given 07/06/2018 8:36 AM EST 100 mg Given 07/05/2018 8:55 PM EST 100 mg Given 07/05/2018 8:12 AM EST 100 mg enoxaparin (LOVENOX) injection 40 mg 40 mg, Subcutaneous, NIGHTLY, First dose on Wed07/08/18 at 2100, Until Discontinued, Routine Given 07/13/2018 9:42 PM EST 40 mg Given 07/12/2018 8:20 PM EST 40 mg Given 07/11/2018 9:40 PM EST 40 mg famotidine (PEPCID) tablet 20 mg 20 mg, Oral, DAILY, First dose on Wed06/26/18 at 1100, Until Discontinued, Routine Given 06/30/2018 9:20 AM EST 20 mg Given 06/29/2018 9:10 AM EST 20 mg Given 06/28/2018 9:06 AM EST 20 mg famotidine (PEPCID) tablet 20 mg 20 mg, Oral, 2 TIMES DAILY, First dose on Wed07/04/18 at 1145, Until Discontinued, Routine Given 07/07/2018 1:29 PM EST 20 mg Given 07/06/2018 8:36 AM EST 20 mg Given 07/05/2018 8:55 PM EST 20 mg fentaNYL (PF) 50mcg/mL injection 25 mcg, Intravenous, EVERY 1 HOUR PRN, Starting on 07/05/18 at 1058, Until Dyan 07/07/18 at 1436, Pain, Routine Given 07/06/2018 6:08 AM EST 25 mcg fentaNYL 50 mcg/mL infusion 1 dose, Starting on 06/28/18 at 1521, Until 06/28/18 at 1553, Kelsie Chapman: venancioinet override fentaNYL 50 mcg/mL infusion 0-200 mcg/hr (0-4 mL/hr), Intravenous, CONTINUOUS, Starting on 06/28/18 at 1600, Until Dyan 06/30/18 at 1617, Pain Scale Goal Less than or equal to 3 or to patient verbalized goal. Initial Infusion rate: 50 mcg/hour; Adjust hourly rate by 50% AND bolus 50% of new hourly rate every 15 minutes to achieve goal. Rate not to exceed 200 mcg/hr. Pain assessment every 15 minutes initially and reassess pain 15 minutes after each bolus given. Pain assessment MUST be documented prior to rate change. New Bag 06/30/2018 8:13 AM EST 200 mcg/ hr 4 mL/hr New Bag 06/29/2018 7:52 PM EST 200 mcg/hr 4 mL/hr Rate/Dose Verify 06/29/2018 6:00 PM EST 200 mcg/hr 4 mL/hr fentaNYL 50 mcg/mL infusion 0-300 mcg/hr (0-6 mL/hr), Intravenous, CONTINUOUS, Starting on Dyan 06/30/18 at 1645, Until Wed07/05/18 at 1058, Pain Scale Goal Less than or equal to 3 or to patient verbalized goal. Initial Infusion rate: 50 mcg/hour; Adjust hourly rate by 50% AND bolus 50% of new hourly rate every 15 minutes to achieve goal. Rate not to exceed 200 mcg/hr. Pain assessment every 15 minutes initially and reassess pain 15 minutes after each bolus given. Pain assessment MUST be documented prior to rate change. Rate/Dose Verify 07/05/2018 6:00 AM EST 100 mcg/hr 2 mL/hr Rate/Dose Verify 07/05/2018 4:00 AM EST 100 mcg/hr 2 mL/hr New Bag 07/05/2018 3:53 AM EST 100 mcg/hr 2 mL/hr fentaNYL bolus from bag 25-100 mcg 25-100 mcg, Intravenous, EVERY 15 MIN PRN, Starting on Wed06/28/18 at 1531, Until Dyan 06/30/18 at 1617, Pain, Refer to infusion order for Bolus instructions. Reassess pain 15 minutes after bolus given., Routine Bolus from Bag 06/29/2018 10:35 AM EST 100 mcg Bolus from Bag 06/28/2018 4:32 PM EST 100 mcg Bolus from Bag 06/28/2018 3:59 PM EST 100 mcg fentaNYL bolus from bag 25-100 mcg 25-100 mcg, Intravenous, EVERY 15 MIN PRN, Starting on Dyan 06/30/18 at 1616, Until Wed07/05/18 at 1058, Pain, Refer to infusion order for Bolus instructions. Reassess pain 15 minutes after bolus given., Routine Bolus from Bag 07/04/2018 9:23 PM EST 100 mcg Bolus from Bag 07/04/2018 9:05 PM EST 100 mcg Bolus from Bag 07/04/2018 8:34 PM EST 100 mcg furosemide (LASIX) injection 20 mg 20 mg, Intravenous, ONCE, 1 dose, On Wed06/28/18 at 1145 Given 06/28/2018 11:45 AM EST 20 mg furosemide (LASIX) injection 20 mg 20 mg, Intravenous, ONCE, 1 dose, On Wed07/05/18 at 0400 Given 07/05/2018 4:06 AM EST 20 mg furosemide (LASIX) injection 40 mg 40 mg, Intravenous, ONCE, 1 dose, On Wed07/03/18 at 1300 Given 07/03/2018 12:51 PM EST 40 mg furosemide (LASIX) injection 40 mg 40 mg, Intravenous, ONCE, 1 dose, On Wed07/03/18 at 1915 Given 07/03/2018 6:54 PM EST 40 mg furosemide (LASIX) injection 40 mg 40 mg, Intravenous, ONCE, 1 dose, On Wed07/04/18 at 1530 Given 07/04/2018 3:22 PM EST 40 mg heparin (Porcine) subcutaneous injection 5,000 Units 5,000 Units, Subcutaneous, EVERY 8 HOURS SCHEDULED, First dose on Wed06/26/18 at 1400, Until Discontinued, Routine Given 07/08/2018 1:33 PM EST 5,000 Units Given 07/08/2018 6:46 AM EST 5,000 Units Given 07/07/2018 9:09 PM EST 5,000 Units ipratropium (ATROVENT HFA) inhaler 6 puff 6 puff, Inhalation, EVERY 4 HOURS SCHEDULED, First dose on Wed06/29/18 at 0000, Until Discontinued, Routine, Is there a contraindication to the patient receiving this medication as a nebulizer? Yes Given 07/06/2018 7:41 AM EST 6 puffs Given 07/06/2018 3:12 AM EST 6 puffs Given 07/05/2018 11:25 PM EST 6 puffs ipratropium-albuterol (DUONEB) 0.5 mg-3 mg(2.5 mg base)/3 mL nebulizer solution 3 mL 3 mL, Nebulization, EVERY 4 HOURS SCHEDULED, First dose on Wed06/26/18 at 1200, Until Discontinued, Routine Given 06/28/2018 11:49 AM EST 3 mLs Given 06/28/2018 7:48 AM EST 3 mLs Given 06/28/2018 3:22 AM EST 3 mLs ipratropium-albuterol (DUONEB) 0.5 mg-3 mg(2.5 mg base)/3 mL nebulizer solution 3 mL 3 mL, Nebulization, 4 TIMES DAILY PRN, Starting on Wed07/06/18 at 1333, Until Wed07/14/18 at 1600, Wheezing, Routine Given 07/06/2018 8:21 PM EST 3 mLs Given 07/06/2018 1:48 PM EST 3 mLs ketamine (KETALAR) 10 mg/mL injection 1 dose, Starting on Wed06/28/18 at 1435, Until Wed06/28/18 at 1445, Kelsie Chapman: cabinet override ketamine (KETALAR) injection 200 mg 200 mg, Intravenous, ONCE, 1 dose, On Wed06/28/18 at 1530, Routine Given 06/28/2018 2:45 PM EST 200 mg magnesium oxide (MAG-OX) tablet 400 mg 400 mg, Oral, 2 TIMES DAILY, First dose on Wed07/04/18 at 0900, Until Discontinued, Routine Given 07/14/2018 8:34 AM EST 400 mg Given 07/13/2018 9:42 PM EST 400 mg Given 07/13/2018 8:53 AM EST 400 mg miconazole (MICOTIN) 2 % powder Topical (Top), 2 TIMES DAILY, First dose on Wed07/06/18 at 2100, Until Discontinued Given 07/11/2018 9:40 PM EST Given 07/11/2018 9:00 AM EST Given 07/10/2018 9:00 AM EST midazolam (PF) (VERSED) 1 mg/mL injection 1 dose, Starting on Wed06/28/18 at 1441, Until Wed06/28/18 at 1555, Kelsie Chapman: cabinet override midazolam (PF) (VERSED) injection 4 mg 4 mg, Intravenous, ONCE, 1 dose, On Wed06/28/18 at 1545, Routine Given 06/28/2018 3:55 PM EST 1 mg NORepinephrine 16 mcg/mL (standard ADULT and Pedi greater than 20 kg) infusion 0-100 mcg/min (0-375 mL/hr), Intravenous, CONTINUOUS, Starting on Wed07/01/18 at 1900, Until Wed07/05/18 at 1054, Titrate to keep MAP greater than 64 mmHg. Start at 2 mcg/min and increase by 2 mcg/min every 3 minutes until goal reached. Do not exceed 200 mcg/min., Routine Restarted 07/03/2018 8:50 PM EST 2 mcg/min 7.5 mL/hr Rate/Dose Change 07/03/2018 11:52 AM EST 1 mcg/min 3.8 mL /hr Rate/Dose Change 07/03/2018 6:50 AM EST 2 mcg/min 7.5 mL/ hr oseltamivir (TAMIFLU) capsule 75 mg 75 mg, Oral, 2 TIMES DAILY, 14 doses, First dose on Wed06/26/18 at 1400, Last dose on Wed07/02/18 at 2100, Routine, Indication for (Active or Suspected): Pneumonia (Community) Given 07/02/2018 8:33 PM EST 75 mg Given 07/02/2018 8:52 AM EST 75 mg Given 07/01/2018 8:44 PM EST 75 mg PHENYLephrine (DONI-SYNEPHRINE) 20 mg in sodium chloride 250 mL (standard ADULT & Pedi greater than 20kg) infusion 0-180 mcg/min (0-135 mL/hr), Intravenous, CONTINUOUS, Starting on Wed06/28/18 at 1600, Until 07/02/18 at 0629, Titrate to maintain mean arterial pressure (MAP) greater than 65 mmHg. Start at 50 mcg/min and adjust dose by 25 mcg/min every 10 minutes. Do not exceed 180 mcg/min. New Bag 07/01/2018 9:54 AM EST 40 mcg/min 30 mL/hr New Bag 07/01/2018 1:09 AM EST 40 mcg/min 30 mL/hr New Bag 06/30/2018 7:39 PM EST 40 mcg/min 30 mL/hr potassium chloride (KAYCIEL) 20 mEq/15 mL oral solution 20-60 mEq 20-60 mEq, Per NG tube, EVERY 4 HOURS PRN, Starting on 07/04/18 at 0203, Until Dyan 07/07/18 at 1437, hypokalemia, For serum potassium: 3.9 - 4 mMol/L = 20 mEq. 3.6 - 3.8 mMol/L = 40 mEq. 3.3 - 3.5 mMol/L = 40 mEq. 2.8 - 3.2 mMol/L = 60 mEq. Less than 2.8 = Call physician, then begin potassium chloride replacement via central or peripheral IV route. See instructions for Potassium Protocol in online policies., Routine Given 07/04/2018 3:49 AM EST 40 mEq potassium chloride 10 mEq in 100 mL 10 mEq, Intravenous, EVERY 1 HOUR PRN, Starting on Wed06/27/18 at 0947, Until Wed07/04/18 at 0204, Administer over 60 Minutes, hypokalemia, Administer 2 times 10 meq/100 mL bags, each over 30-60 minutes for serum potassium (mMol/L) of 3.9 - 4 See instructions for Potassium Protocol in online policies. New Bag 07/03/2018 5:38 AM EST 10 mEq 100 mL/h r New Bag 07/03/2018 4:14 AM EST 10 mEq 100 mL/hr New Bag 07/02/2018 6:38 AM EST 10 mEq 100 mL/hr potassium chloride 10 mEq in 100 mL 10 mEq, Intravenous, EVERY 1 HOUR PRN, Starting on Wed06/27/18 at 0947, Until 07/04/18 at 0204, Administer over 60 Minutes, hypokalemia, Administer 4 times 10 meq/100 mL bags, each over 30-60 minutes for serum potassium (mMol/L) of 3.3 - 3.8 See instructions for Potassium Protocol in online policies. New Bag 07/03/2018 10:48 PM EST 10 mEq 100 mL/hr New Bag 07/03/2018 9:08 PM EST 10 mEq 100 mL/hr New Bag 07/03/2018 7:50 PM EST 10 mEq 100 mL/hr potassium chloride 10 mEq in 100 mL 10 mEq, Intravenous, EVERY 1 HOUR PRN, Starting on Wed06/27/18 at 0947, Until Wed07/04/18 at 0204, Administer over 60 Minutes, hypokalemia, Administer Administer 6 times 10 meq/100 mL bags, each over 30-60 minutes for serum potassium (mMol/L) of 2.8 - 3.2 See instructions for Potassium Protocol in online policies. New Bag 06/30/2018 4:35 AM EST 10 mEq 100 mL/h r New Bag 06/28/2018 7:48 AM EST 10 mEq 100 mL/hr propofol (DIPRIVAN) 10 mg/mL infusion 1 dose, Starting on Wed06/28/18 at 1512, Until Wed06/28/18 at 1530, Kelsie Chapman R.: cabinet override propofol (DIPRIVAN) infusion 0-50 mcg/kg/min ? 74.1 kg (0-22.23 mL/hr, rounded to 0-22.2 mL/hr), Intravenous, CONTINUOUS, Starting on Wed06/28/18 at 1600, Until Wed07/05/18 at 1054, Titrate to sedation level of RASS Goal (-)1 to 0 . Start at 20 mcg/kg/min, adjust rate by 10 mcg/kg/min every 3 minutes. Once stable, reassess patient every 30 minutes. Rate not to exceed 50 mcg/kg/minute. Change rate only after assessing and documenting RASS. Reassess sedation scores within 30 minutes after every rate change. If under sedated, increase rate by 10 mcg/kg/min. If over sedated, hold sedative until target RASS (-)1 to 0 achieved and then restart at 50% of previous rate. Call powerhouse electrician apprentice if goal not achieved at maximum rate., Routine Rate/Dose Change 07/04/2018 1:00 AM EST 5 mcg/kg/min 2.2 mL/hr Rate/Dose Change 07/04/2018 12:00 AM EST 10 mcg/kg/min 4.4 mL/hr Rate/Dose Verify 07/03/2018 10:00 PM EST 15 mcg/kg/min 6.7 mL/hr senna-docusate (PERICOLACE) 8.6-50 mg per tablet 1 tablet 1 tablet, Oral, 2 TIMES DAILY PRN, Starting on Wed07/07/18 at 1446, Until Wed07/14/18 at 1600, Constipation, Routine sennosides (SENOKOT) 8.8 mg/5 mL oral syrup 17.6 mg 17.6 mg, Oral, 2 TIMES DAILY, First dose on Wed06/28/18 at 2100, Until Discontinued, Routine Given 07/06/2018 8:36 AM EST 17.6 mg Given 07/05/2018 8:55 PM EST 17.6 mg Given 07/05/2018 8:12 AM EST 17.6 mg sertraline (ZOLOFT) tablet 100 mg 100 mg, Oral, NIGHTLY, First dose (after last modification) on Wed06/26/18 at 2300, Until Discontinued, Routine Given 07/13/2018 9:42 PM EST 100 mg Given 07/12/2018 10:00 PM EST 100 mg Given 07/11/2018 10:49 PM EST 100 mg sodium chloride 0.9 % flush 5 mL 5 mL, Intravenous, EVERY 12 HOURS, First dose on Wed06/26/18 at 1100, Until Discontinued, Routine Given 07/14/2018 8:35 AM EST 5 mLs Given 07/13/2018 9:00 PM EST 5 mLs Given 07/13/2018 8:54 AM EST 5 mLs sodium chloride 0.9% 1,000 mL IV bolus at 1,000 mL/hr, Intravenous, ONCE, 1 dose, On Wed06/28/18 at 1600 New Bag 06/28/2018 3:35 PM EST 1000 mL/hr sodium chloride 0.9% infusion 10 mL/hr, Intravenous, CONTINUOUS PRN, Starting on Wed06/26/18 at 1034, Until Wed07/07/18 at 1436 Rate/Dose Verify 07/04/2018 2:00 AM EST 10 mL/hr 10 mL/hr Rate/Dose Verify 07/04/2018 12:00 AM EST 10 mL/hr 10 mL/ hr Rate/Dose Verify 07/03/2018 10:00 PM EST 10 mL/hr 10 mL/ hr tube feeding diet 65 mL, Per OG Tube, CONTINUOUS, Starting on Wed06/29/18 at 1445, Until Wed07/07/18 at 0202, Administer flushes and check residuals per policy, Which tube feed product? Peptamen Intense VHP (aka Bariatric), Initial Rate: (mL/hr): 20, Advance by: (mL): 10, Advance every: Q4H, Goal final rate: (mL/hr): 65 Rate/Dose Verify 07/05/2018 6:00 AM EST 65 mLs 65 mL/hr Rate/Dose Verify 07/05/2018 4:00 AM EST 65 mLs 65 mL/h r Rate/Dose Verify 07/05/2018 2:00 AM EST 65 mLs 65 mL/h r vecuronium (NORCURON) 10 mg injection 1 dose, Starting on Wed06/30/18 at 1915, Until Wed06/30/18 at 1919, BOSSMAN MARRERO: cabinet override vecuronium (NORCURON) injection 10 mg 10 mg, Intravenous, ONCE, 1 dose, On Wed06/30/18 at 1930, STAT Given 06/30/2018 7:19 PM EST 10 mg white petrolatum-mineral oil ophthalmic ointment Both Eyes, 2 TIMES DAILY, First dose on Wed06/30/18 at 2100, Until Discontinued Given 07/11/2018 9:00 AM EST Given 07/10/2018 9:00 AM EST Given 07/05/2018 8:13 AM EST documented in this encounter Active and Recently Administered Medications Times are shown in EST. Scheduled Medication Order 07/12/2018 07/13/2018 07/14/2018 enoxaparin (LOVENOX) injection 40 mg 40 mg, Subcutaneous, NIGHTLY, First dose on Wed07/08/18 at 2100, Until Discontinued, Routine 2019 (Given - Provider: Haydee Guardado RN) 2141 (Given - Provider: Reid Vick RN) magnesium oxide (MAG-OX) tablet 400 mg (CANCELED) 400 mg, Oral, 2 TIMES DAILY, First dose on Wed07/04/18 at 0900, Until Discontinued, Routine 820 (Given - Provider: Kenya Owens RN)2019 (Given - Provider: Haydee Guardado RN) 08 (Given - Provider: Cherelle Becerril, MIKIE)2141 (Given - Provider: Reid Vick RN) 08 (Given - Provider: Jocelyn Laurent, MIKIE) miconazole (MICOTIN) 2 % powder Topical (Top), 2 TIMES DAILY, First dose on Wed07/06/18 at 2100, Until Discontinued 08 (Not Given - Provider: Kenya Owens RN - Reason: Patient/family refused)2019 (Not Given - Provider: Haydee Guardado RN - Reason: Patient/family refused) 853 (Not Given - Provider: Cherelle Becerril RN - Reason: Patient/family refused)2099 (Not Given - Provider: Reid Vick RN - Reason: Patient/family refused) 0900 (Not Given - Provider: Jocelyn Laurent RN - Reason: Patient/family refused) sertraline (ZOLOFT) tablet 100 mg 100 mg, Oral, NIGHTLY, First dose (after last modification) on 06/26/18 at 2300, Until Discontinued, Routine 2200 (Given - Provider: Haydee Guardado, MIKIE) 2141 (Given - Provider: Reid Vick RN)2300 (Canceled Entry - Provider: Reid Vick RN - Reason: Patient/family refused) sodium chloride 0.9 % flush 5 mL 5 mL, Intravenous, EVERY 12 HOURS, First dose on 06/26/18 at 1100, Until Discontinued, Routine 0920 (Given - Provider: Kenya Owens, MIKIE)2019 (Given - Provider: Haydee Guardado, MIKIE) 08 (Given - Provider: Cherelle Becerril, MIKIE)2099 (Given - Provider: Reid Vick, MIKIE) 08 (Given - Provider: Jocelyn Laurent, MIKIE) white petrolatum-mineral oil ophthalmic ointment Both Eyes, 2 TIMES DAILY, First dose on Dyan 06/30/18 at 2100, Until Discontinued 08 (Not Given - Provider: Kenya Owens RN - Reason: Patient/family refused)2019 (Not Given - Provider: Haydee Guardado RN - Reason: Patient/family refused) 0850 (Not Given - Provider: Cherelle Becerril RN - Reason: Patient/family refused)2148 (Not Given - Provider: Reid Vick RN - Reason: Patient/family refused) 0900 (Not Given - Provider: Jocelyn Laurent RN - Reason: Patient/family refused) PRN Medication Order 07/12/2018 07/13/2018 07/14/2018 acetaminophen (TYLENOL) 650 mg/20.3 mL oral liquid 650 mg 650 mg, Oral, EVERY 4 HOURS PRN, Starting on Dyan 06/30/18 at 1204, Until Dyan 07/14/18 at 1600, Fever, Maximum dose of acetaminophen is 4000 mg from all sources in 24 hours. , Routine ipratropium-albuterol (DUONEB) 0.5 mg-3 mg(2.5 mg base)/3 mL nebulizer solution 3 mL 3 mL, Nebulization, 4 TIMES DAILY PRN, Starting on Wed07/06/18 at 1333, Until Wed07/14/18 at 1600, Wheezing, Routine lidocaine (XYLOCAINE) 10 mg/mL (1 %) injection 3 mg 3 mg (0.3 mL), Subcutaneous, ONCE PRN, 1 dose, Starting on Wed06/26/18 at 1034, Until Wed07/14/18 at 1600, for discomfort with PIV insertion, Routine senna-docusate (PERICOLACE) 8.6-50 mg per tablet 1 tablet 1 tablet, Oral, 2 TIMES DAILY PRN, Starting on Wed07/07/18 at 1446, Until Wed07/14/18 at 1600, Constipation, Routine sodium chloride 0.9 % flush 5-20 mL 5-20 mL, Intravenous, EVERY 1 MIN PRN, Starting on Wed06/26/18 at 1034, Until Dyan 07/14/18 at 1600, flush, Flush pertains to all indwelling lines. Flush per protocol found in the job aid using the link provided on this medication record., Routine documented in this encounter Additional Health Concerns Infection Onset Date Last Indicated Resolved Time INFLUENZA 06/26/2018 06/26/2018 07/14/2018 2:00 PM EST documented as of this encounter Care Teams Key Bed Installer Relationship Specialty Start Date End Date Catalina Barroso APRN PCP - General Family Medicine 05/20/18 08/23/18 documented as of this encounter
--- OUTSIDE RECORDS SUMMARY | 2024-01-21 14:41 | XMS_ITS | Encounter Summary ---
Author Organization [facility] Address [facility] [place] [address] Care Team Providers Care Roofing Tile Sorter Name Role Phone Lucy Brock APRN Primary Care Provider + Reason for Visit * Reason Comments Advice Only Encounter Details Date Type Department Care Team (Late st Contact Info) Description 05/19/2018 2:45 PM EST Office Visit Dermatology at [address] [phone] Daisha Butt MD [facility] [address] [place] [address] Isael Eddy RN Encounter for cosmetic procedure Social History Tobacco Use Types Packs/Day Years Used Date Smoking Tobacco: Never Smokeless Tobacco: Never Sex and Gender Information Value Date Recorded Sex Assigned at Not on file Gender Identity Not on file Sexual Orientation Not on file documented as of this encounter Progress Notes * Isael Eddy - 05/19/2018 2:45 PM EST DERMATOLOGY RAW SHELLFISH PREPARER NOTE Date of service: 05/19/2018 Yara Lawton : 1960 SUPERVISED BY: Daisha Butt MD Chief Complaint Patient presents with ??? Advice Only ROS General: feeling well Skin: denies other skin complaints Breast feeding: no Trying to get : no HPI Yara Lawton is a 57 y.o. year old female . Here today for: Skin consultation Exam: Patient with adult acne and dry skin. Patient uses dove on skin. Would like to establish skin care regimen. A/P: # Chemical Peels for acne, dry skin located on face - Appropriate peels for this patient include: Vi peel, MA Peel - Number of treatments recommeded: 3-4 - [...] benefits of any anti aging plan/procedures. -retinoid: Tretinoin 0.05% date started: 05/19/2018 -ZO skincare regimen: regimen or products: Will begin ZO regimen next visit reviewed by: dw date: n/a -instructions in AVS dated n/a -discussed importance of meticulous sun protection -Patient will schedule for a later visit due to time contraints # Photography: needs to be done at next visit Patient charged today: no charge FOLLOW UP WHEN: Next available FOR WHAT: skin care LENGTH OF VISIT: 30 min NUMBING?: no PICTURES NEEDED? yes COST: no charge NOTES: Isael Eddy Roll Line Operator documented in this encounter Plan of Treatment Not on file documented as of this encounter Visit Diagnoses Diagnosis Encounter for cosmetic procedure documented in this encounter Care Teams Roofing Tile Sorter Relationship Specialty Start Date End Date Lucy Brock APRN PCP - General 04/22/10 05/19/18 documented as of this encounter
--- OUTSIDE RECORDS SUMMARY | 2024-01-21 14:41 | XMS_ITS | Encounter Summary ---
[place] [address] Care Team Providers Care Internal Combustion Engineer Name Role Phone Unavailable Primary Care Provider Unavailabl e Encounter Details Date Type Department Care Team (Late st Contact Info) Description 03/18/2010 - 03/18/2010 11:59 PM EDT Hospital Encounter [place] [address] [address] Edward Peterson Screening Discharge Disposition: Home [...] Comments FILM LIBRARY STORAGE ONLY MAMMO Routine 03/18/2010 12:00 AM EDT Screening documented in this encounter Results * Film Library- Storage only Mammo (03/18/2010 12:00 AM EDT) Narrative [facility] - 10/08/2015 12:26 AM EDT This exam is for storage only and is auto-finalizing. [facility] FILM LIBRARY ORD ERABLES [place], [place] documented in this encounter Visit Diagnoses Diagnosis Screening Screening for unspecified condition documented in this encounter
--- OUTSIDE RECORDS SUMMARY | 2024-01-21 14:41 | XMS_ITS | Encounter Summary ---
Author Organization [facility] Address [facility] [place] [address] Care Team Providers Care Lubricating Engineer Name Role Phone Lucy Brock APRN Primary Care Provider + Encounter Details Date Type Department Care Team (Late st Contact Info) Description 05/18/2018 Telephone Dermatology at [facility] [address] [place] [address] Mayelin Sands PA [facility] DR MURI[address] [facility] [address] Social History Tobacco Use Types Packs/Day Years Used Date Smoking Tobacco: Never Assessed Sex and Gender Information Value Date Recorded Sex Assigned at Not on file Gender Identity Not on file Sexual Orientation Not on file documented as of this encounter Miscellaneous Notes * Telephone Encounter - Minerva Cruz - 05/18/2018 4:03 PM EST lvm w/ cb # have openings on 05/19 W 10,2,4 w/ [facility] documented in this encounter Plan of Treatment Not on file documented as of this encounter Visit Diagnoses Not on filedocumented in this encounter Care Teams Lubricating Engineer Relationship Specialty Start Date End Date Lucy Brock APRN PCP - General 04/22/10 05/19/18 documented as of this encounter
[2024-01-21 15:53] LABS: Abs Immature Grans 0.01 10^3/uL (0.0-0.06); Absolute Basophil Count 0.07 10^3/uL (0.0-0.2); Absolute Eosinophil Count 0.18 10^3/uL (0.0-0.7); Absolute Lymphocyte Count 1.51 10^3/uL (1.2-3.4); Absolute Monocyte Count 0.35 10^3/uL (0.1-0.8); Absolute Neutrophil Count 3.14 10^3/uL (1.2-6.7); Basophils % 1.3 %; Eosinophils % 3.4 %; HCT 40.8 % (36.0-46.0); HGB 13.3 g/dL (11.2-15.7); Immature Grans % 0.2 %; Lymphocytes % 28.7 %; MCH 30.1 pg (27.0-33.0); MCHC 32.6 % (32.0-36.0); MCV 92 fL (80-95); MPV 10.9 fL (8.0-11.0); Monocytes % 6.7 %; Neutrophils % 59.7 %; Platelet Count 266 10^3/uL (130-400); RBC 4.42 10^6/uL (3.93-5.22); RDW 12.1 % (11.7-14.6); RDW-SD 41.1 fL; WBC 5.26 10^3/uL (4.4-10.8)
[2024-01-21 16:15] LABS: ALT 14 U/L (14-59); AST 15 U/L (15-37); Albumin 3.3 g/dL (3.4-5.0); Alkaline Phosphatase 86 U/L (46-116); Anion Gap 7.4 mmol/L (3-11); BUN 13 mg/dL (7-18); Bilirubin, Total 0.43 mg/dL (0.2-1.0); CO2 29.6 mmol/L (21.0-32.0); CREATININE 0.9 mg/dL (0.55-1.02); Calcium 8.9 mg/dL (8.5-10.1); Calculated LDL 131 mg/dL (<100); Chloride 102 mmol/L (98-107); Cholesterol 199 mg/dL (<200); Estimated GFR 70.95 (mL/min/1.73m2); Glucose 89 mg/dL (74-106); HDL Cholesterol 36 mg/dL (40-60); Potassium 4.4 mmol/L (3.5-5.1); Sodium 139 mmol/L (136-145); TSH (W/Ref FT4) 1.76 uIU/mL (0.36-3.74); Total Protein 7.6 g/dL (6.4-8.2); Triglyceride 164 mg/dL (<150)
[2024-01-21 16:20] LABS: Hemoglobin A1C 5.8 % (<5.7)
== END 2024-01-21 14:37 | disposition home or self-care (01) ==
LOC: NCHCN 14:36
PROVIDERS: PCP Nurse Practitioner Family; Visit Provider Nurse Practitioner Family
DX: F41.9 Anxiety disorder, unspecified (principal); N39.41 Urge incontinence; Z68.30 Body mass index [BMI] 30.0-30.9, adult; E66.9 Obesity, unspecified
CPT/HCPCS: 80053; 80061; 83036; 84443; 85025

== ENCOUNTER 2024-04-20 02:05 | Outpatient (CLI) | payer MEDICARE, OTHER, SELFPAY ==
--- NOTE | 2024-04-20 | DI.DEXA_ITS ---
Exam(s) XR DEXA BONE DENSITY W/WO RICARDO EXAM: XR DEXA BONE DENSITY W/WO RICARDO CLINICAL HISTORY: screening for osteoporosis, M85.88, disorders of bone density and structure TECHNIQUE: Hologic Horizon C densitometer analysis of left hip, lumbar spine and right forearm. La teral survey image of the thoracic and lumbar spine. COMPARISON: CR XR SACROILIAC JOINTS from 04/01/2023 FINDINGS: Lateral view of the thoracic and lumbar spine shows no evidence of compression fractures. Bone mineral density measurements of the lumbar spine correspond to a total T-score of 0.2, in the n ormal range. Bone mineral density measurements of the left hip correspond to a total T-score of -1.8. The femora l neck T-score is -2.3, in the osteopenic range.. Theright forearm bone mineral density measurements correspond to a T-score of the distal 3rd of -1.4 , in the osteopenic range.. IMPRESSION: Normal bone mineral density of the lumbar spine. Osteopenia of the forearm and hip.
== END 2024-04-20 02:25 ==
PROVIDERS: PCP Nurse Practitioner Family; Visit Provider Nurse Practitioner Family
DX: Z13.820 Encounter for screening for osteoporosis (principal); M85.88 Other specified disorders of bone density and structure, other site
CPT/HCPCS: 77080

== ENCOUNTER 2024-05-09 11:20 | Emergency (ER) | payer MEDICARE, OTHER, SELFPAY ==
[2024-05-09 11:23] VITALS: BP 120/85; PULSE 78; RESP 15; TEMP 36.4; O2SAT 97
--- NOTE | 2024-05-09 11:29 | ED.GENADUL_ITS ---
Discharge Plan Disposition Patient Disposition: Home Discharge Details Clinical Impression: Closed left radial fracture Primary Care Provider: Emily Ferreira ED Provider: La Phillips Home Meds and New Rx's Prescriptions: No Action lorazepam 0.5 MG tablet 0.5 mg PO HS PRN PRN Sertraline HCl [Zoloft] 100 MG tablet 100 mg PO HS oxybutynin chloride 5 mg tablet extended release 24hr 5 mg PO HS Wegovy 0.5 mg/0.5 mL pen injector 0.5 mg SUBCUT Q7D Patient Comments: INJECT 0.5 MG SUBCUTANEOUSLY WEEKLY DIRECTED Discharge Instructions Instructions: Radius Fracture (DC) Additional Instructions: Please follow-up with orthopedics, calling first thing in the morning to schedule follow-up appointment in the next 2 to 3 weeks. Keep your splint clean and dry. Please keep it from getting wet, using a cast bag or garbage bag that is well-secured around your arm while showering, being sure to keep your arm out of the water as well. If it does get wet, a hairspring ii inspector on cool setting can be used to try it. Do not put anything down your splint. Use the sling for comfort. Apply ice for 15 to 20 minutes at a time. Elevate above heart level. You may use Tylenol 650 mg every 4-6 hours as needed for discomfort. Return to emergency care if you develop new numbness in your hand/fingers, new severe pain, or if you are very worried and need to be rechecked again immediately. Referrals: [facility] [Provider Group] Discharge Data Discharge Date/Time-TO BE ENTERED AT DEPARTURE: 05/09/24 13:13 HPI General Date/Time Provider Initiated Documentation: 05/09/24 11:22 . HPI Narrative: Yara is a 63year old female who presents to the emergency department today for evaluation of left wrist pain. She reports that she was using the snowblower when it snapped back, causing her to hyperextend her wrist. She denies hitting her wrist on anything. She has mild swelling and tenderness to the dorsum of her wrist, discomfort with extension and flexion. No distal numbness/tingling, elbow injury, or other injuries reported. She is left-handed. She has had carpal tunnel surgery performed on this wrist previously, no previous fractures. Past medical history is significant for osteoporosis, especially in the right arm, denies osteoporosis of the left. No interventions prior to arrival. Physical exam remarkable for mild swelling to dorsum of the wrist and tenderness along dorsum of wrist. No overlying abrasion/lacerations/ecchymosis. No cre pitus or foreign bodies. Radial and ulnar pulses intact. Positive CMS to fingers. Full painless range of motion to elbow. History and presentation consistent with sprain, though fracture also possible, especially in patient with known osteoporosis. I independently interpreted the following tests: Left wrist x-ray remarkable for distal radius fracture. This was confirmed by radiologist. While in the emergency department, Yara received ice and a sugar-tong splint was applied. Patient tolerated procedure well. Reviewed discharge instructions with patient, including symptomatic management, importance of follow-up with orthopedics, and red flags indicating need for return to emergency care Related Data Home Medications ?Medication ?Instructions ?Recorded ?Confirmed Sertraline HCl [Zoloft] 100 mg PO HS 11/30/17 05/09/24 lorazepam 0.5 mg tablet 0.5 mg PO HS PRN PRN 11/30/17 05/09/24 oxybutynin chloride 5 mg 5 mg PO HS 10/01/22 05/09/24 tablet,extended release 24 hr semaglutide (weight loss) 0.5 0.5 mg subcut Q7D 05/09/24 05/09/24 mg/0.5 mL subcutaneous pen injector (Wegovy) Allergies Allergy/AdvReac Type Severity Reaction Status Date / Time erythromycin base Allergy Intermediate Hives Verified 05/09/24 11:28 citalopram (From Celexa) Allergy panic Verified 05/09/24 11:28 attacks paroxetine (From Paxil) AdvReac Intermediate panic Verified 05/09/24 11:28 attack season Allergy Mild Itching Uncoded 05/09/24 11:28 General Stated Complaint: Orthopedic SHARONDA: 4 Review of Systems Narrative: see HPI Exam Const General: cooperative, healthy appearing, comfortable, no acute distress, well developed and well groomed Nutritional Appearance: average body habitus Orientation: alert and oriented x3 Skin General skin exam: no rashes or lesions noted Trauma: no lacerations or abrasions Neuro General: patient alert, patient oriented x3, gait normal, tone normal, moves all extremities and no focal motor deficits Extrem Left upper extremity: normal capillary refill and wrist (no snuffbox tenderness ) Details: tenderness Location: of the dorsal wrist, radial pulse present and ulnar pulse present; no unusual warmth, no abrasions, no lacerations, no ecchymosis, no crepitus, no foreign bodies, no penetrating wound and no deformity Course Vital Signs Vital signs: Vital Signs Temperature 36.4 C L 05/09/24 11:23 Pulse 78 05/09/24 11:23 Respiratory Rate 15 05/09/24 11:23 Blood Pressure 120/85 05/09/24 11:23 Pulse Oximetry 97 05/09/24 11:23 Temperature 36.4 C L 05/09/24 11:23 Pulse 78 05/09/24 11:23 Respiratory Rate 15 05/09/24 11:23 Respiratory Effort Normal 05/09/24 11:27 Blood Pressure 120/85 05/09/24 11:23 Blood Pressure Position Sitting 05/09/24 11:23 Pulse Oximetry 97 05/09/24 11:23 Oxygen Delivery Method Room Air 05/09/24 11:23 Oxygen Flow Rate 0 05/09/24 11:23 Procedures Orthopedic Splinting/Casting Injury #1: Side: left Upper Extremity Injury Location: forearm and wrist Upper Extremity Immobilizer: sling/shoulder immobilizer and sugartong splint Medical Decision Making Imaging Data Radiologic Study: Radiologist's impression: Exam(s) XR WRIST LT COMPLETE EXAM: XR WRIST LT COMPLETE CLINICAL HISTORY: L wrist pain, swelling to dorsum of wrist. TECHNIQUE: 2D digital imaging was performed. COMPARISON: No exams were available for comparison FINDINGS: 3 views There is a fracture of the distal radius minimal displacement and impaction. No significant dorsal angulation. No significant ulnar variance. Difficult to determine if this fracture actually violates the radiocarpal joint surface. There is no fracture of the ulnar styloid. Scaphoid and scapholunate distance appear unremarkable. No carpal dislocation. IMPRESSION: Distal radius fracture as above. Quality:SDOH Health Related Social Needs: No Data to Display PFSH All Active Problems (Updated 05/09/24 @ 12:21 by La Cho) Closed left radial fracture (Acute) Screen for colon cancer (Acute) Anxiety (Chronic 11/30/17) Atypical squamous cells of undetermined significance (ASC-US) on cervical Pap smear (Chronic 03/25/17) HR HPV negative 2016 2015 NILM/(+)HR HPV Depression (Chronic 11/30/17) Migraine without status migrainosus, not intractable (Chronic 11/30/17) Rosacea (Chronic 11/30/17) Diverticulosis large intestine w/o perforation or abscess w/o bleeding (Acute) Colorectal polyp detected on colonoscopy (Acute) Chest pain (Acute) Perforation bowel (Acute) Intestinal diverticular abscess (Acute) Medical History Left bundle branch block (LBBB) on electrocardiogram ECHO done 02/28/18 EF 50%, No aortic stenosis. F/U w/ Tubular adenoma (~03/14/18) Surgical History H/O breast augmentation H/O rhinoplasty History of bilateral carpal tunnel release History of colonoscopy with polypectomy (~03/14/18) Social History Smoking/Tobacco Use Status: Former Tobacco Use Quit Date: 05/31/06 Smoking risk assessment performed?: Yes Alcohol Intake: never Drug use: Never Substance use type: does not use Housing: house Current gender identity: female Do you feel safe at home: Yes Do you feel safe in your relationship?: Yes
--- NOTE | 2024-05-09 11:40 | DI.RAD_ITS ---
Exam(s) XR WRIST LT COMPLETE EXAM: XR WRIST LT COMPLETE CLINICAL HISTORY: L wrist pain, swelling to dorsum of wrist. TECHNIQUE: 2D digital imaging was performed. COMPARISON: No exams were available for comparison FINDINGS: 3 views There is a fracture of the distal radius minimal displacement and impaction. No significant dorsal a ngulation. No significant ulnar variance. Difficult to determine if this fracture actually violates the radiocarpal joint surface. There is no fracture of the ulnar styloid. Scaphoid and scapholunat e distance appear unremarkable. No carpal dislocation. IMPRESSION: Distal radius fracture as above. DATA REPOSITORY: RADIATION DOSE DELIVERED:
[2024-05-09 13:12] VITALS: BP 120/85; PULSE 78; RESP 15; TEMP 36.4; O2SAT 97
== END 2024-05-09 13:13 | disposition home or self-care (01) ==
PROVIDERS: Emergency Provider Nurse Practitioner Family; PCP Nurse Practitioner Family
DX: S52.592A Other fractures of lower end of left radius, initial encounter for closed fracture (principal); Z79.899 Other long term (current) drug therapy; Z87.891 Personal history of nicotine dependence; X50.9XXA Other and unspecified overexertion or strenuous movements or postures, initial encounter; Y93.29 Activity, other involving ice and snow; Y92.017 Garden or yard in single-family (private) house as the place of occurrence of the external cause
CPT/HCPCS: 29125; 99283; 73110

== ENCOUNTER 2024-05-18 15:36 | Outpatient (CLI) | payer MEDICARE, OTHER, SELFPAY ==
--- NOTE | 2024-05-18 09:15 | DI.RAD_ITS ---
Exam(s) XR WRIST LT LIMITED EXAM: XR WRIST LT LIMITED CLINICAL HISTORY: F/U L DISTAL RAD FX. TECHNIQUE: 2D digital imaging was performed of the left wrist. Two images were obtained. And later al views were obtained. COMPARISON: CR XR WRIST LT COMPLETE from 05/09/2024 FINDINGS: The patient's wrist is in a cast which does obscure the underlying bony detail. BONES: There has been no change in alignment of the fracture involving the distal metaphysis of the l eft radius. No bony destructive lesion is seen. JOINTS: The carpal bones are normally aligned. Degenerative changes are seen in the wrist. SOFT TISSUE: Normal. IMPRESSION: Stable alignment of the distal left radial fracture. DATA REPOSITORY: RADIATION DOSE DELIVERED:
== END 2024-05-18 15:37 | disposition home or self-care (01) ==
LOC: DIORS 15:37
PROVIDERS: PCP Nurse Practitioner Family; Referring Provider Nurse Practitioner Family; Visit Provider Physician Assistant
DX: S52.502A Unspecified fracture of the lower end of left radius, initial encounter for closed fracture; X58.XXXA Exposure to other specified factors, initial encounter
CPT/HCPCS: 99213; 73100

== ENCOUNTER 2024-05-25 15:38 | Outpatient (CLI) | payer MEDICARE, OTHER, SELFPAY ==
--- NOTE | 2024-05-25 11:57 | DI.RAD_ITS ---
Exam(s) XR WRIST LT LIMITED EXAM: XR WRIST LT LIMITED INDICATION: F/U FRACTURE. COMPARISON: CR XR WRIST LT COMPLETE from 05/09/2024 CR XR WRIST LT LIMITED from 05/18/2024 TECHNIQUE: 2D digital imaging was performed. Two views. FINDINGS: Stable alignment of the distal radial fracture. Some soft tissue swelling remains present. Dorsal t ilt of lunate again noted. DATA REPOSITORY: RADIATION DOSE DELIVERED:
== END 2024-05-25 15:39 | disposition home or self-care (01) ==
LOC: DIORS 15:38
PROVIDERS: PCP Nurse Practitioner Family; Referring Provider Nurse Practitioner Family; Visit Provider Physician Assistant
DX: S52.502D Unspecified fracture of the lower end of left radius, subsequent encounter for closed fracture with routine healing (principal); X58.XXXD Exposure to other specified factors, subsequent encounter
CPT/HCPCS: 99213; 73100

== ENCOUNTER 2024-06-05 13:59 | Outpatient (REF) | payer MEDICARE, SELFPAY ==
--- OUTSIDE RECORDS SUMMARY | 2024-06-05 14:03 | XMS_ITS | Encounter Summary ---
Author Organization [facility] [place] [address] Care Team Providers Care Education Counselor Name Role Phone Leland Echavarria DNP Primary Care Provider [phone] Encounter Details Date Type Department Care Team (Late st Contact Info) Description 06/04/2021 [place] [address] Odalis Kirkland Social History Tobacco Use Types [...] as of this encounter Plan of Treatment Upcoming Encounters Date Type Department Care Team (Late st Contact Info) Description 06/12/2024 11:15 AM EST Office Visit [place] [address] Catherine Harley APRN [facility] [place] [address] documented as of this encounter Visit Diagnoses Not on filedocumented in this encounter Care Teams Education Counselor Relationship Specialty Start Date End Date Leland Echavarria [place] [address] PCP - General Family Medicine 08/24/18 04/20/24 documented as of this encounter
--- OUTSIDE RECORDS SUMMARY | 2024-06-05 14:03 | XMS_ITS | Encounter Summary ---
Author Organization [facility] [place] [address] Care Team Providers Care Pulmonologist/Intensivist Name Role Phone Emily Ferreira APRN Primary Care Provider [phone] Encounter Details Date Type Department Care Team (Late st Contact Info) Description 05/15/2024 Transcribe Orders eDH Incoming Referrals [phone] Emily Ferreira, PRINT FINISHING WORKER [address] [place], [place] [address] Social History Tobacco Use Types Packs/Day Years [...] Office Visit [facility] at [facility] [place] [address] Catherine Harley, PRINT FINISHING WORKER [facility] [address] documented as of this encounter Visit Diagnoses Not on filedocumented in this encounter Care Teams Pulmonologist/Intensivist Relationship Specialty Start Date End Date Emily Ferreira, PRINT FINISHING WORKER [facility] [place] [address] PCP - General Family Medicine 04/21/24 documented as of this encounter
--- OUTSIDE RECORDS SUMMARY | 2024-06-05 14:03 | XMS_ITS | Clinical Summary ---
Author Organization [facility] Address [facility] [place] [address] Care Team Providers Care Stack Matcher Name Role Phone Emily Ferreira APRN Primary Care Provider [phone] Allergies Active Allergy Reactions Criticality Noted Date [...] 06/26/2018 Influenza A (H1N1) 06/26/2018 Hyponatremia 06/26/2018 Encounters Date Type Department Care Team Description 05/15/2024 Transcribe Orders eD Incoming Referrals [phone] Emily Ferreira APRN 04/21/2024 Transcribe Orders eD Incoming Referrals [phone] Emily Ferreira, ANIMATED CARTOONS PAINTER Other intervertebral disc degeneration, lumbar region without mention of lumbar back pain or lower extremity pain from Last 3 Months Immunizations Name Administration Dates Next Due Pneumococcal 13-Valent Conjugate (Prevnar 13) Social History Tobacco Use Types Packs/Day Years [...] 06/27/2019 10:22 AM EST Plan of Treatment Upcoming Encounters Date Type Department Care Team (Late st Contact Info) Description 06/12/2024 11:15 AM EST Office Visit [facility] at [facility] [place] [address] Catherine Harley APRN [facility] [place] [address] Health Maintenance Due Date Last Done Comments CT Colonography 1958 Colonoscopy 1958 Colorectal Cancer Screening 1958 FIT DNA 1958 FIT 1958 Sigmoidoscopy (10 year) with FIT yearly 1958 Sigmoidoscopy 1958 HIV screen 1976 Hepatitis C Screening 1976 Tetanus/Diphtheria/Pertussis Vaccines (1 - Tdap) 1977 HPV test 1988 PAP Smear 1988 Breast Cancer Share Decision Needed 1998 Breast Cancer screening 1998 Zoster vaccine (1 of 2) 2008 RSV Vaccine (1 - Risk 60-74 years 1-dose series) 2018 Pneumoccocal Vaccine: 65+ (2 of 2 - PPSV23) 10/20/2019 10/19/2018 Bone Density Scan 2023 Covid-19 Vaccine (1 - 2023-2 5 season) 2024 Influenza (Flu) vaccine (1 o f 1 [...] EST) Glucose 89 65 - 199 mg/dL [facility] Comment:Diabetes: >=200 mg/d L plus symptoms Blood Urea Nitrogen 18 8 - 18 mg/dL [facility] Creatinine 0.54(L) 0.70 - 1.20 mg/dL [facility] Sodium 138 135 - 145 mmol/L [facility] Potassium 3.7 3.5 - 5.0 mmol/L [facility] Comment: Please note: ??Patients with WBC >100,000 may have falsely elevated Potassium levels. ??For accurate Potassium quantification in these patients send serum separator tube (gold top) for subsequent determinations. ??Contact the Clinical Chemistry Laboratory if there are any questions. Chloride 102 98 - 107 mmol/L [facility] Carbon Dioxide 26 22 - 31 mmol/L [facility] Anion Gap 10 5 - 15 mmol/L [facility] Calcium 8.6 8.5 - 10.5 mg/dL [facility] Est Glomerular Filtration Rate 103 >=60 mL/min/1. 73 m?? [facility] Comment: The eGFR was calculated using the CKD-EPI equation. As with all creatinine based estimates of kidney function, eGFR values calculated with the CKD-EPI equation are not accurate in patients with acute kidney failure, extremes of body mass or the acutely ill. [email or web address] eGFR 119 >=60 mL/min/1. 73 m?? [facility] Comment: The eGFR was calculated using the CKD-EPI equation. As with all creatinine based estimates of kidney function, eGFR values calculated with the CKD-EPI equation are not accurate in patients with acute kidney failure, extremes of body mass or the acutely ill. 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
--- OUTSIDE RECORDS SUMMARY | 2024-06-05 14:03 | XMS_ITS | Encounter Summary ---
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 AND SYNOVIAL CUST ON L4 NERVE ROOT RIGHT SIDE Emily Ferreira APRN [address] [place] [address] [facility] [place] [address] Referral ID Status Reason Start Date Expiration Date Visits Requested Visits Authorized [id number] Authorized Consult, Test & Treat PCP Updated and/or Approved 03/26/2025 6 6 Encounter Details Date Type Department Care Team (Latest Contact Info) Description 04/21/2024 Transcribe Orders eDH Incoming Referrals [phone] Emily Ferreira APRN [address] [place] [address] Other intervertebral disc degeneration, lumbar region without mention of lumbar back pain or lower extremity pain Social History Tobacco Use Types Packs/Day Years [...] Office Visit [place] [address] Catherine Harley APRN [facility] [place] [address] Scheduled Referrals Name Type Priority Associated Diagnoses Orde r Schedule Referral to Pain Management Outpatient Referral Routine Other Intervertebral Disc Degeneration, Lumbar Region Without Mention Of Lumbar Back Pain Or Lower Extremity Pain Ordered: 04/21/2024 documented as of this encounter Visit Diagnoses Diagnosis Other intervertebral disc degeneration, lumbar region without mention of lumbar back pain or lower extremity pain documented in this encounter Care Teams Nail Kegger Relationship Specialty Start Date End Date Emily Ferreira APRN [address] [place] [address] PCP - General Family Medicine 04/21/24 documented as of this encounter
--- OUTSIDE RECORDS SUMMARY | 2024-06-05 14:03 | XMS_ITS | Encounter Summary ---
[place] [address] Care Team Providers Care Developing Machine Tender Name Role Phone Leland Echavarria OLGA Primary Care Provider [phone] Encounter Details Date Type Department Care Team (Late st Contact Info) Description 11/05/2021 [place] [phone] My Lerma Social History Tobacco Use Types [...] documented in this encounter Plan of Treatment Upcoming Encounters Date Type Department Care Team (Late st Contact Info) Description 06/12/2024 11:15 AM EST Office Visit [place] [address] Catherine Harley, EXCELSIOR CUTTER [facility] [place] [address] documented as of this encounter Visit Diagnoses Not on filedocumented in this encounter Care Teams Developing Machine Tender Relationship Specialty Start Date End Date Leland Echavarria DNP [address] [place] [address] PCP - General Family Medicine 08/24/18 04/20/24 documented as of this encounter
--- OUTSIDE RECORDS SUMMARY | 2024-06-05 14:03 | XMS_ITS | Encounter Summary ---
Author Organization [facility] [place] [address] Care Team Providers Care Manager Call Center Name Role Phone Leland Echavarria OLGA Primary Care Provider Encounter Details Date Type Department Care Team (Late st Contact Info) Description 11/03/2021 Tele[place] [phone] My Lerma Social History Tobacco Use Types [...] - 11/03/2021 7:51 AM EDT lm to resched Boothe's appt. documented in this encounter Plan of Treatment Upcoming Encounters Date Type Department Care Team (Late st Contact Info) Description 06/12/2024 11:15 AM EST Office Visit [facility] [place] [phone] Catherine Harley, TECHNOLOGY AUDITOR [facility] [place] [address] documented as of this encounter Visit Diagnoses Not on filedocumented in this encounter Care Teams Manager Call Center Relationship Specialty Start Date End Date Leland Echavarria DNP [address] [place] [address] PCP - General Family Medicine 08/24/18 04/20/24 documented as of this encounter
--- OUTSIDE RECORDS SUMMARY | 2024-06-05 14:04 | XMS_ITS | Encounter Summary ---
Author Organization [facility] [place] [address] Care Team Providers Care Bank Messenger Name Role Phone Leland Echavarria DNP Primary Care Provider Encounter Details Date Type Department Care Team (Latest Contact Info) Description 11/28/2019 10:57 AM EDT - 11/28/2019 11:59 PM EDT Hospital [place] [address] Acute respiratory distress syndrome (ARDS) Discharge Disposition: [...] Office Visit [place] [address] Catherine Harley APRN [facility] [place] [address] documented as of this encounter Procedures Procedure [...] surgery documented in this encounter Care Teams Bank Messenger Relationship Specialty Start Date End Date Leland Echavarria DNP [address] [place] [address] PCP - General Family Medicine 08/24/18 04/20/24 documented as of this encounter
--- OUTSIDE RECORDS SUMMARY | 2024-06-05 14:04 | XMS_ITS | Encounter Summary ---
[place] [address] Care Team Providers Care Alterations Manager Name Role Phone Leland Echavarria DNP Primary Care Provider [phone] Encounter Details Date Type Department Care Team (Late st Contact Info) Description 12/12/2018 Tele[place] [address] Leonela Miranda RT Social History Tobacco Use [...] [place] that she received a bill from [facility] for her pulmonary rehab. She called [facility] and understood that pulmonary rehab isn't covered by her insurance. Plan: Follow up with [facility] insurance regarding pulmonary rehab policy. - Yara will connect with financial assistance at [facility] for coverage of pulmonary rehab. She will continue her home exercise program including walking and kayaking. documented in this encounter Plan of Treatment Upcoming Encounters Date Type Department Care Team (Late st Contact Info) Description 06/12/2024 11:15 AM EST Office Visit [place] [address] Catherine Harley APRN [facility] [place] [address] documented as of this encounter Visit Diagnoses Not on filedocumented in this encounter Care Teams Alterations Manager Relationship Specialty Start Date End Date Leland Echavarria DNP [address] [place] [address] PCP - General Family Medicine 08/24/18 04/20/24 documented as of this encounter
--- OUTSIDE RECORDS SUMMARY | 2024-06-05 14:04 | XMS_ITS | Encounter Summary ---
[place] [address] Care Team Providers Care Field Artillery Fire Control Man Name Role Phone Leland Echavarria DNP Primary Care Provider [phone] Encounter Details Date Type Department Care Team (Late st Contact Info) Description 09/16/2018 Telephone [place] [address] Leonela Miranda RT Social History Tobacco Use [...] AM EDT faxed pulmonary rehab referral and band tacker note to [facility] pulmonary rehab program documented in this encounter Plan of Treatment Upcoming Encounters Date Type Department Care Team (Late st Contact Info) Description 06/12/2024 11:15 AM EST Office Visit [place] [address] Catherine Harley, AUTOMOTIVE LOT ATTENDANT [facility] [place] [address] documented as of this encounter Visit Diagnoses Not on filedocumented in this encounter Care Teams Field Artillery Fire Control Man Relationship Specialty Start Date End Date Leland Echavarria DNP [address] [facility] 1 [place] [address] PCP - General Family Medicine 08/24/18 04/20/24 documented as of this encounter
--- OUTSIDE RECORDS SUMMARY | 2024-06-05 14:04 | XMS_ITS | Encounter Summary ---
[place] [address] Care Team Providers Care Metal Furniture Glazier Name Role Phone Leland Echavarria DNP Primary Care Provider [phone] Encounter Details Date Type Department Care Team (Late st Contact Info) Description 11/23/2019 [place] [address] Lakshmi Young Social History Tobacco Use Types Packs/Day Years [...] Office Visit [place] [address] Catherine Harley, STEPHANIE [facility] [place] [address] documented as of this encounter Visit Diagnoses Not on filedocumented in this encounter Care Teams Metal Furniture Glazier Relationship Specialty Start Date End Date Leland Echavarria DNP [facility] [address] [facility] 1 [place] [address] PCP - General Family Medicine 08/24/18 04/20/24 documented as of this encounter
--- OUTSIDE RECORDS SUMMARY | 2024-06-05 14:04 | XMS_ITS | Encounter Summary ---
Author Organization [facility] [place] [address] Care Team Providers Care Burlap Roll Coverer Name Role Phone Leland Echavarria DNP Primary Care Provider Encounter Details Date Type Department Care Team (Late st Contact Info) Description 11/21/2019 Telephone [place] [address] Wendy Doyle Social History Tobacco Use Types [...] Office Visit [facility] [place] [address] Catherine Harley APRN [facility] [place] [address] documented as of this encounter Visit Diagnoses Not on filedocumented in this encounter Care Teams Burlap Roll Coverer Relationship Specialty Start Date End Date Leland Echavarria [place] [address] PCP - General Family Medicine 08/24/18 04/20/24 documented as of this encounter
--- OUTSIDE RECORDS SUMMARY | 2024-06-05 14:04 | XMS_ITS | Encounter Summary ---
Author Organization [facility] [place] [address] Care Team Providers Care Condenser Setter Name Role Phone Leland Echavarria DNP Primary Care Provider Encounter Details Date Type Department Care Team (Late st Contact Info) Description 06/12/2019 [place] [address] Sonia Marlow Social History Tobacco Use Types [...] Office Visit [facility] [place] [address] Catherine Harley, EMBOSSING MACHINE OPERATOR HELPER [facility] [place] [address] documented as of this encounter Visit Diagnoses Not on filedocumented in this encounter Care Teams Condenser Setter Relationship Specialty Start Date End Date Leland Echavarria DNP [address] [place] [address] PCP - General Family Medicine 08/24/18 04/20/24 documented as of this encounter
--- OUTSIDE RECORDS SUMMARY | 2024-06-05 14:04 | XMS_ITS | Encounter Summary ---
Author Organization [place] [address] Care Team Providers Care Commercial Painter Name Role Phone Leland Echavarria DNP Primary Care Provider Encounter Details Date Type Department Care Team (Latest Contact Info) Description 12/22/2018 1:31 PM EDT - 12/22/2018 11:59 PM EDT Hospital [place] [address] Influenza, pneumonia Discharge Disposition: Home Social History [...] Office Visit [facility] at [facility] [place] [address] Catherine Harley APRN [facility] [place] [address] documented as of this encounter Procedures Procedure [...] pneumonia documented in this encounter Care Teams Commercial Painter Relationship Specialty Start Date End Date Leland Echavarria DNP [facility] [address] [place] [address] PCP - General Family Medicine 08/24/18 04/20/24 documented as of this encounter
--- OUTSIDE RECORDS SUMMARY | 2024-06-05 14:04 | XMS_ITS | Encounter Summary ---
Author Organization [facility] [place] [address] Care Team Providers Care Gravure Printing Machinist Name Role Phone Leland Echavarria DNP Primary Care Provider [phone] Reason for Referral * Diagnostic Test (Routine) - Closed Specialty Diagnoses / Procedures Referred By Arden cunningham Referred To Contact Radiology Diagnoses Acute respiratory distress syndrome (ARDS) Procedures CT Chest wo Contrast (Generic) Sandra Tucker MD [facility] [place] [address] [facility] [place] [address] Referral ID Status Reason Start Date Expiration Date V isits Requested Visits Authorized [id number] Closed Specialty Service Requested 11/17/2019 05/08/2020 1 1 Reason for Visit * Reason Comments Follow-up Encounter Details Date Type Department Care Team (Late st Contact Info) Description 06/27/2019 10:30 AM EST Office [place] [address] Sandra Tucker MD [facility] [place] [address] Acute respiratory distress syndrome (ARDS) (Primary [...] from the original note were not included. 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 She denies any hemoptysis or hematemesis. [...] Office Visit from 09/06/2018 in Pulmonology at [facility] PFT Results FEV1 (L) 1.94 liters FEV1 [...] Office Visit [place] [address] Catherine Harley APRN [facility] [place] [address] documented as of this encounter Results * [...] please contact the number below. ? Narrative 11/28/2019 3:26 PM EDT EXAMINATION: CT [...] surgery documented in this encounter Care Teams Gravure Printing Machinist Relationship Specialty Start Date End Date Leland Echavarria DNP [facility] [address] [place] [address] PCP - General Family Medicine 08/24/18 04/20/24 documented as of this encounter
--- OUTSIDE RECORDS SUMMARY | 2024-06-05 14:04 | XMS_ITS | Encounter Summary ---
[place] [address] Care Team Providers Care Cant Gang Sawyer Name Role Phone Leland Echavarria DNP Primary Care Provider [phone] Encounter Details Date Type Department Care Team (Late st Contact Info) Description 11/04/2018 Telephone [place] [address] Heriberto Thompson Social History Tobacco Use Types [...] 11/04/2018 9:31 AM EDT I called [facility] ([phone]) to obtain pulmonary rehab benefits. ?? I called 4 times as I was continuously disconnected by the automated system. On my 5th call I was able to reach Jeannine, who advised me that pulmonary rehab is not a covered benefit under this patient plan. Call reference umber is [id number] documented in this encounter Plan of Treatment Upcoming Encounters Date Type Department Care Team (Late st Contact Info) Description 06/12/2024 11:15 AM EST Office Visit [facility] [place] [address] Catherine Harley APRN [facility] [place] [address] documented as of this encounter Visit Diagnoses Not on filedocumented in this encounter Care Teams Cant Gang Sawyer Relationship Specialty Start Date End Date Leland Echavarria DNP [facility] [address] [place] [address] PCP - General Family Medicine 08/24/18 04/20/24 documented as of this encounter
--- OUTSIDE RECORDS SUMMARY | 2024-06-05 14:04 | XMS_ITS | Encounter Summary ---
Author Organization [facility] Address [facility] [place] [address] Care Team Providers Care Sheriff'S Sergeant Name Role Phone Leland Echavarria OLGA Primary Care Provider [phone] Reason for Referral * Diagnostic Test (Routine) - Closed Specialty Diagnoses / Procedures Referred By Contac t Referred To Contact Radiology Diagnoses Acute respiratory distress syndrome (ARDS) Procedures CT Chest wo Contrast (Generic) Sandra Tucker MD [facility] [place] [address] [facility] [place] [address] Referral ID Status Reason Start Date Expiration Date V isits Requested Visits Authorized [id number] Closed Specialty Service Requested 11/17/2019 05/08/2020 1 1 Reason for Visit * Diagnostic Test (Routine) - Closed Specialty Diagnoses / Procedures Referred By Contac t Referred To Contact Radiology Diagnoses Acute respiratory distress syndrome (ARDS) Procedures CT Chest wo Contrast (Generic) Sandra Tucker MD [facility] [place] [address] [facility] [place] [address] Referral ID Status Reason Start Date Expiration Date V isits Requested Visits Authorized [id number] Closed Specialty Service Requested 11/17/2019 05/08/2020 1 1 Encounter Details Date Type Department Care Team (Latest Contact Info) Description 11/28/2019 9:46 AM EDT - 11/28/2019 10:56 AM EDT Hospital [place] [address] Sandra Tucker MD [facility] [place] [address] Acute respiratory distress syndrome (ARDS) Discharge Disposition: [...] Office Visit [place] [address] Catherine Harley APRN [facility] [place] [address] documented as of this encounter Procedures Procedure [...] below. ? Electronically signed by: Siomara Morales, [facility] ([phone]), at 11/28/2019 3:26 PM Narrative 11/28/2019 3:26 [...] surgery documented in this encounter Care Teams Sheriff'S Sergeant Relationship Specialty Start Date End Date Leland Echavarria DNP [address] [place] [address] PCP - General Family Medicine 08/24/18 04/20/24 documented as of this encounter
--- OUTSIDE RECORDS SUMMARY | 2024-06-05 14:04 | XMS_ITS | Encounter Summary ---
Author Organization [facility] [place] [address] Care Team Providers Care Magnetic Grinder Operator Name Role Phone Leland Echavarria DNP Primary Care Provider Encounter Details Date Type Department Care Team (Late st Contact Info) Description 07/23/2019 Ancillary Procedure Radiology Library at [facility] [place] [address] Renata Boothe MD Social History Tobacco Use Types Packs/Day Years [...] Office Visit [facility] [place] [address] Catherine Harley, PHOTOGRAMMETRIC STEREO COMPILER [facility] [place] [address] documented as of this encounter Procedures Procedure Name Priority Date/Time Associated Diagnosis Comments FILM LIBRARY STORAGE ONLY CT CHEST Routine 07/23/2019 12:00 AM EST documented in this encounter Results * Film Library- Storage Only CT Chest (07/23/2019 12:00 AM EST) Narrative HERLINDA LOPEZ - 07/25/2019 3:48 PM EST This exam is auto-finalizing. It's purpose is for storage only. Renata Boothe MD IMG FILM LIBRARY ORD ERABLES [place], [place] documented in this encounter Visit Diagnoses Not on filedocumented in this encounter Care Teams Magnetic Grinder Operator Relationship Specialty Start Date End Date Leland Echavarria DNP [address] [place] [address] PCP - General Family Medicine 08/24/18 04/20/24 documented as of this encounter
--- OUTSIDE RECORDS SUMMARY | 2024-06-05 14:04 | XMS_ITS | Encounter Summary ---
Author Organization [facility] [place] [address] Care Team Providers Care Spa Manager/Esthetician Name Role Phone Leland Echavarria DNP Primary Care Provider [phone] Reason for Visit * Reason Comments Follow-up Encounter Details Date Type Department Care Team (Late st Contact Info) Description 12/22/2018 3:00 PM EDT Office Visit Pulmonology at [facility] [place] [address] Sandra Tucker MD [facility] [address] [place] [address] ARDS survivor; Other emphysema Social History Tobacco [...] from the original note were not included. 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 She was admitted to [facility] from May 20282018 to July 14, [...] Updated Social History: Current Medications: Medications 12/22/18 9102 Medication Sig Taking? sertraline (ZOLOFT) 100 mg [...] Office Visit from 09/06/2018 in Pulmonology at [place] PFT Results FEV1 (L) 1.94 liters FEV1 [...] Office Visit [facility] [place] [address] Catherine Harley APRN [facility] [place] [place] [address] documented as of this encounter Visit Diagnoses Diagnosis ARDS survivor Personal history of other diseases of respiratory system Other emphysema documented in this encounter Care Teams Spa Manager/Esthetician Relationship Specialty Start Date End Date Leland Echavarria DNP [address] [place] [address] PCP - General Family Medicine 08/24/18 04/20/24 documented as of this encounter
--- OUTSIDE RECORDS SUMMARY | 2024-06-05 14:04 | XMS_ITS | Encounter Summary ---
Author Organization [facility] [place] [address] Care Team Providers Care Glass Forming Crew Member Name Role Phone Leland Echavarria DNP Primary Care Provider [phone] Encounter Details Date Type Department Care Team (Latest Contact Info) Description 11/02/2018 12:36 PM EDT - 11/02/2018 11:59 PM EDT Hospital En[place] [address] Pulmonary Rehab Program, Prp None Discharge Disposition: [...] Office Visit [place] [address] Catherine Harley, OFFSET PRESS OPERATOR HELPER [facility] [address] documented as of this encounter Procedures Procedure [...] PM EDT) 11/23/2018 1:01 PM EDT Narrative [facility] - 11/23/2018 1:01 PM EDT Click on the Linked Documents ??View Image link to view the session report. Procedure Note Unknown - 11/23/2018 Click on the Linked Documents View Image link to view the sessionreport. Unknown CARDIAC REHAB ORDERA BLES Performing Organization Address [facility] Co de Phone Number [facility] * Pulmonary Rehab Session (11/16/2018 1:02 PM EDT) 11/16/2018 1:02 PM EDT Narrative [facility] - 11/16/2018 1:02 PM EDT Click on the Linked Documents ??View Image link to view the session report. Procedure Note Unknown - 11/16/2018 Click on the Linked Documents View Image link to view the sessionreport. Unknown CARDIAC REHAB ORDERA BLES Performing Organization Address [facility] Co de Phone Number [facility] * Pulmonary Rehab Session (11/11/2018 1:02 PM EDT) 11/11/2018 1:02 PM EDT Narrative [facility] - 11/11/2018 1:02 PM EDT Click on the Linked Documents ??View Image link to view the session report. Procedure Note Unknown - 11/11/2018 Click on the Linked Documents View Image link to view the sessionreport. Unknown CARDIAC REHAB ORDERA BLES Performing Organization Address [facility] Co de Phone Number [facility] * Pulmonary Rehab Session (11/04/2018 1:01 PM EDT) 11/04/2018 1:01 PM EDT Narrative [facility] - 11/04/2018 1:01 PM EDT Click on the Linked Documents ??View Image link to view the session report. Procedure Note Unknown - 11/04/2018 Click on the Linked Documents View Image link to view the sessionreport. Unknown CARDIAC REHAB ORDERA BLES Performing Organization Address [facility] Co de Phone Number [facility] * Pulmonary Rehab Session (11/02/2018 12:58 PM EDT) 11/02/2018 12:5 8 PM EDT Narrative [facility] - 11/02/2018 12:58 PM EDT Click on the Linked Documents ??View Image link to view the session report. Procedure Note Unknown - 11/02/2018 Click on the Linked Documents View Image link to view the sessionreport. Unknown CARDIAC REHAB ORDERA BLES Performing Organization Address [facility] Co de Phone Number [facility] documented in this encounter Visit Diagnoses Not on filedocumented in this encounter Care Teams Glass Forming Crew Member Relationship Specialty Start Date End Date Leland Echavarria DNP [address] [place] [address] PCP - General Family Medicine 08/24/18 04/20/24 documented as of this encounter
--- OUTSIDE RECORDS SUMMARY | 2024-06-05 14:04 | XMS_ITS | Encounter Summary ---
[place] [address] Care Team Providers Care Single End Sewer Name Role Phone Leland Echavarria DNP Primary Care Provider [phone] Encounter Details Date Type Department Care Team (Late st Contact Info) Description 11/10/2018 [place] [address] Leonela Miranda, RT Social History Tobacco Use [...] EDT Pulmonary Rehabilitation Out-patient Rounds Report Yara Slaughter Jered has attended 3 sessions of Pulmonary Rehab and was reviewed in rounds today with pulmonary rehab staff and Scratcher Tender, Dr.James Le. All Pulmonary rehab sessions can be found under the CARD/VASC tab. Per Dr. Le's recommendation, she is to continue with the current exercise prescription, progressing as tolerated, to maintain a perceived exertion rating of moderate to somewhat hard and BEGLICA dyspnea at moderate. Comments: Yara Lawton is gradually increasing her exercise workloads utilizing pursed lip breathing with cues. documented in this encounter Plan of Treatment Upcoming Encounters Date Type Department Care Team (Late st Contact Info) Description 06/12/2024 11:15 AM EST Office Visit [facility] and Sp[facility] Center at [facility] [place] [address] Catherine Harley APRN [facility] [address] documented as of this encounter Visit Diagnoses Not on filedocumented in this encounter Care Teams Single End Sewer Relationship Specialty Start Date End Date Leland Echavarria DNP [address] [place] [address] PCP - General Family Medicine 08/24/18 04/20/24 documented as of this encounter
--- OUTSIDE RECORDS SUMMARY | 2024-06-05 14:04 | XMS_ITS | Encounter Summary ---
[place] [address] Care Team Providers Care Butter Grader Name Role Phone Leland Echavarria DNP Primary Care Provider [phone] Encounter Details Date Type Department Care Team (Late st Contact Info) Description 11/03/2018 [place] [address] Heriberto Thompson Social History Tobacco Use Types [...] 11/03/2018 11:01 AM EDT I called [facility] ([phone]) to obtain pulmonary rehab benefits. I was on hold for 65 minutes before being disconnected. I will call back later documented in this encounter Plan of Treatment Upcoming Encounters Date Type Department Care Team (Late st Contact Info) Description 06/12/2024 11:15 AM EST Office Visit [place] [address] Catherine Harley APRN [facility] [place] [address] documented as of this encounter Visit Diagnoses Not on filedocumented in this encounter Care Teams Butter Grader Relationship Specialty Start Date End Date Leland Echavarria DNP [facility] [address] [facility] [address] [place] [address] PCP - General Family Medicine 08/24/18 04/20/24 documented as of this encounter
--- OUTSIDE RECORDS SUMMARY | 2024-06-05 14:04 | XMS_ITS | Encounter Summary ---
Author Organization [facility] [place] [address] Care Team Providers Care Concrete Vibrator Operator Name Role Phone Leland Echavarria DNP Primary Care Provider [phone] Encounter Details Date Type Department Care Team (Late st Contact Info) Description 05/02/2021 Telephone [place] [address] Odalis Kirkland Social History Tobacco Use Types [...] Office Visit [facility] [place] [address] Catherine Harley APRN [facility] [place] [address] documented as of this encounter Visit Diagnoses Not on filedocumented in this encounter Care Teams Concrete Vibrator Operator Relationship Specialty Start Date End Date Leland [place] [address] PCP - General Family Medicine 08/24/18 04/20/24 documented as of this encounter
--- OUTSIDE RECORDS SUMMARY | 2024-06-05 14:04 | XMS_ITS | Encounter Summary ---
Author Organization [facility] Address [facility] [place] [address] Care Team Providers Care Coverage Specialist Name Role Phone Leland Echavarria OLGA Primary Care Provider [phone] Reason for Visit * Rehabilitation ([place]) - Specialty Diagnoses / Procedures Referred By Arden cunningham Referred To Contact Pulmonary Rehabilitation Diagnoses Influenza, pneumonia Sandra Tucker MD [facility] [place] [address] Pulmonary Rehab, [facility] [address] [place] [address] Referral ID Status Reason Start Date Expiration Date V isits Requested Visits Authorized [id number] Evaluate and Treat 09/06/2018 09/06/2019 36 36 Encounter Details Date Type Department Care Team (Late st Contact Info) Description 10/19/2018 10:30 AM EDT Office [place] [address] Seb Le Jr., MD [facility] [place] [address] Acute respiratory distress syndrome (ARDS); ILD (interstitial [...] Consult: I was asked by Dr. Leland Echavarria to evaluate this patient for participation in pulmonary rehabilitation. I have personally interviewed and examined the patient, and reviewed her radiographic studies and laboratory data. HPI: Ms. Lawton is a 58 y.o. female who presents for medical clearance prior to starting pulmonary rehabilitation. She has been evaluated in [facility] Pulmonary Clinic by Dr. Tucker on 09/06/2018. [...] file Gets together: Not on file Attends sikhism service: Not on file Active member of [...] techniques reviewed. Currently not using respiratory medications. [place] candidate for pulmonary rehabilitation, and anticipate continued [...] Office Visit [place] [address] Catherine Harley APRN [facility] [address] documented as of this encounter Visit Diagnoses Diagnosis Acute respiratory distress syndrome (ARDS) Other pulmonary insufficiency, not elsewhere classified, following trauma and surgery ILD (interstitial lung disease) Postinflammatory pulmonary fibrosis ARDS survivor Personal history of other diseases of respiratory system documented in this encounter Care Teams Coverage Specialist Relationship Specialty Start Date End Date Leland Echavarria DNP [facility] [address] [place] [address] PCP - General Family Medicine 08/24/18 04/20/24 documented as of this encounter
--- OUTSIDE RECORDS SUMMARY | 2024-06-05 14:04 | XMS_ITS | Encounter Summary ---
[place] [address] Care Team Providers Care Tapping Machine Operator Name Role Phone Leland Echavarria DNP Primary Care Provider [phone] Encounter Details Date Type Department Care Team (Late st Contact Info) Description 09/30/2018 [place] [phone] Leonela Miranda RT Social History Tobacco Use [...] message regarding pulm rehab. She connected with 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 Reviewed time/program structure of pulmonary rehab at [facility] and she noted that this would be better with her work schedule. Plan: pulmonary rehab evaluation on 10/19/2018 at 10:30 am including 6 minute walk. documented in this encounter Plan of Treatment Upcoming Encounters Date Type Department Care Team (Late st Contact Info) Description 06/12/2024 11:15 AM EST Office Visit [facility] [place] [address] Catherine Harley APRN [facility] [place] [address] documented as of this encounter Visit Diagnoses Not on filedocumented in this encounter Care Teams Tapping Machine Operator Relationship Specialty Start Date End Date Leland Echavarria DNP [address] [place] [address] PCP - General Family Medicine 08/24/18 04/20/24 documented as of this encounter
--- OUTSIDE RECORDS SUMMARY | 2024-06-05 14:04 | XMS_ITS | Encounter Summary ---
Author Organization [facility] Address [facility] [place] [address] Care Team Providers Care Vp Celebrity Services Name Role Phone Leland Echavarria DNP Primary Care Provider Encounter Details Date Type Department Care Team (Latest Contact Info) Description 09/06/2018 9:25 AM EDT - 09/06/2018 11:59 PM EDT Hospital [place] [address] of the chest Discharge Disposition: [...] Office Visit [place] [address] [facility] [place] [address] documented as of this encounter Procedures Procedure [...] organs documented in this encounter Care Teams Vp Celebrity Services Relationship Specialty Start Date End Date Leland Echavarria DNP [address] [place] [address] PCP - General Family Medicine 08/24/18 04/20/24 documented as of this encounter
--- OUTSIDE RECORDS SUMMARY | 2024-06-05 14:04 | XMS_ITS | Encounter Summary ---
[place] [address] Care Team Providers Care Supervisor Whipped Topping Name Role Phone Leland Echavarria DNP Primary Care Provider [phone] Encounter Details Date Type Department Care Team (Late st Contact Info) Description 11/28/2019 2:30 PM EDT TH Visit (TeleHealth) [place] [address] Renata oBothe MD ARDS survivor Social History Tobacco Use Types [...] from the original note were not included. [facility] Section of Pulmonary and Critical Care [...] changed and [place] [employer] area. 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 Currently works in the [employer]. Smoked 1 PPD x 30 years,quit in [...] concerns or questions arise. Renata Boothe MD Missile Pad MechanicDirect Marketing Intern Pulmonary [place] [address] documented in this encounter Plan of Treatment Upcoming Encounters Date Type Department Care Team (Late st Contact Info) Description 06/12/2024 11:15 AM EST Office Visit [place] [phone] Catherine Harley APRN [facility] [place] [address] documented as of this encounter Visit Diagnoses Diagnosis ARDS survivor Personal history of other diseases of respiratory system documented in this encounter Care Teams Supervisor Whipped Topping Relationship Specialty Start Date End Date Leland Echavarria, OLGA [address] [place] [address] PCP - General Family Medicine 08/24/18 04/20/24 documented as of this encounter
--- OUTSIDE RECORDS SUMMARY | 2024-06-05 14:04 | XMS_ITS | Encounter Summary ---
Author Organization [facility] [place] [address] Care Team Providers Care Parlor Maid Name Role Phone Leland Echavarria DNP Primary Care Provider Encounter Details Date Type Department Care Team (Latest Contact Info) Description 11/28/2018 8:15 AM EDT - 11/28/2018 11:59 PM EDT Hospital Encounter [place] [address] Pulmonary Rehab Program, Prp None [...] Office Visit [place] [address] Catherine Harley, BALE COVERER [facility] [place] [address] documented as of this encounter Procedures Procedure [...] CARDIAC REHAB ORDERA BLES Performing Organization Address [facility] Co de Phone Number [facility] * Pulmonary Rehab Session (11/30/2018 12:59 PM EDT) 11/30/2018 12:5 9 PM EDT Narrative [facility] - 11/30/2018 12:59 PM EDT Click on the Linked Documents ??View Image link to view the session report. Procedure Note Unknown - 11/30/2018 Click on the Linked Documents View Image link to view the sessionreport. Unknown CARDIAC REHAB ORDERA BLES Performing Organization Address [facility] Co de Phone Number [facility] documented in this encounter Visit Diagnoses Not on filedocumented in this encounter Care Teams Parlor Maid Relationship Specialty Start Date End Date Leland Echavarria DNP [address] [place] [address] PCP - General Family Medicine 08/24/18 04/20/24 documented as of this encounter
--- OUTSIDE RECORDS SUMMARY | 2024-06-05 14:04 | XMS_ITS | Encounter Summary ---
Author Organization [facility] [place] [address] Care Team Providers Care Lipcoat Sprayer Name Role Phone Leland Echavarria DNP Primary Care Provider Encounter Details Date Type Department Care Team (Late st Contact Info) Description 12/29/2018 Telephone [place] [phone] Carlin Shay, RN Social History Tobacco Use [...] Office Visit [facility] [place] [address] Catherine Harley APRN [facility] [place] [address] documented as of this encounter Visit Diagnoses Not on filedocumented in this encounter Care Teams Lipcoat Sprayer Relationship Specialty Start Date End Date Leland Echavarria DNP [address] [place] [address] PCP - General Family Medicine 08/24/18 04/20/24 documented as of this encounter
--- OUTSIDE RECORDS SUMMARY | 2024-06-05 14:04 | XMS_ITS | Encounter Summary ---
Author Organization [facility] Address [facility] [place] [address] Care Team Providers Care Manager Grant Name Role Phone Leland Echavarria DNP Primary Care Provider [phone] Reason for Referral * Rehabilitation ([facility]) - Specialty Diagnoses / Procedures Referred By Contac t Referred To Contact Pulmonary Rehabilitation Diagnoses Influenza, pneumonia Sandra Tucker [place] [address] Pulmonary Rehab, [facility] [address] [place] [address] Referral ID Status Reason Start Date Expiration Date V isits Requested Visits Authorized [id number] Evaluate and Treat 09/06/2018 09/06/2019 36 36 Reason for Visit * Reason Comments Referral * Consultation (Urgent) - Specialty Diagnoses / Procedures Referred By Contac t Referred To Contact Pulmonology Diagnoses ards PNEUMONIA Leland Echavarria DNP [address] [place] [address] [address] [place] [address] [facility] Pulmonology [address] [place] [address] [place] [address] Referral ID Status Reason Start Date Expiration Date V isits Requested Visits Authorized [id number] Consult, Test & Treat [facility] 08/24/2018 08/24/2019 6 6 Encounter Details Date Type Department Care Team (Late st Contact Info) Description 09/06/2018 11:00 AM EDT Office Visit Pulmonology at [facility] [place] [address] Sandra Tucker MD [facility] [place] [address] Influenza, pneumonia; ILD (interstitial lung disease) Social [...] from the original note were not included. [facility] Section of Pulmonary and Critical Care Medicine Outpatient Consultation Date of Encounter: 09/06/2018 Referring Provider: STE[address] [place] [address] Reason for Evaluation: Leland Echavarria APRN referred [...] and influenza pneumonia. She was admitted to [facility] from May 20282018 to July 14, 2018 with severe progressive acute hypoxic respiratory failure, requiring mechanical ventilation, pronating as well as completion of multiple antibiotic therapies and Tamiflu. Initially on presentation, patient tested positive for influenza PCR and subsequently was transferred from [facility] to [facility] for further management. She was rapidly intubated upon transfer and subsequently underwent 6 days of mechanical ventilationwith 48 hours of pronation due to significant presence of ARDS. CT chest performed on initial arrival with presence of bilateral extensive pulmonary infiltrate. Patient responded to treatment and wassubsequently liberated from mechanical ventilation 6 days after her arrival here at [facility] with transition to hospitalist care. 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 Intimate partner violence: Fear of current or ex partner: None Emotionally abused: None Physically abused: None Forced sexual activity: None Other Topics Concern ??? None Social History Narrative ??? None Social narrative: Ms. Lawton lives significant other in [place], [place]. 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 Previously, she worked as various. Her hobbies [...] MYELOP, SSAROAB, SSBLAAB, CYCCITPEP, RF, SCL70, CENTSCR, Y6PINNM, JO1, MYOSITISAB in the last 7068 hours. Acute Phase Reactants No results for input(s): CRP, SEDRATE, IRON, IRONSAT, FERRITIN, FIBRINOGEN, INTERLEUKIN6, [id number], CALPROTECTIN in the last 7068 hours. Imaging: [...] contact the number below. Electronically signed by: Luis A Corral [facility] ([phone]), at 07/03/2018 12:14 PM Echocardiogram: None Pulmonary Function Tests: Date FVC [...] interstitial lung disease Sandra Tucker MD N [facility] PULMONOLOGY AT [facility] [address] Dept: [phone] Loc: [phone] documented in this encounter Plan of Treatment Upcoming Encounters Date Type Department Care Team (Late st Contact Info) Description 06/12/2024 11:15 AM EST Office Visit Pain and Spine Center at [facility] [address] Catherine Harley APRN [facility] [place] [address] Scheduled Referrals Name Type Priority Associated Diagnoses [...] pneumonia documented in this encounter Care Teams Manager Grant Relationship Specialty Start Date End Date Leland Echavarria DNP [address] [place] [address] PCP - General Family Medicine 08/24/18 04/20/24 documented as of this encounter
--- OUTSIDE RECORDS SUMMARY | 2024-06-05 14:04 | XMS_ITS | Encounter Summary ---
[place] [address] Care Team Providers Care Insole Doubler Name Role Phone Leland Echavarria DNP Primary Care Provider Encounter Details Date Type Department Care Team (Late st Contact Info) Description 09/27/2018 [place] [address] Fernando Beth Social History Tobacco Use Types Packs/Day Years Used Date Smoking Tobacco: Former Cigarettes 1 - 2011 Smokeless Tobacco: Never Alcohol Use [...] had not yet received a call from [facility] Pul Rehab, and was wondering if her referral had been sent yet. Confirmed that it was sent out on 09/16. Patient states that she spoke with someone (after being transferred to three departments), and thatthey had not received it. Let patient know that I would call the Pulm Rehab department to confirm their fax number, and would resend the referral. Called [facility] to confirm fax number. [facility] also confirmed that they did have the referral for this patient, and would reach out to schedule her. documented in this encounter Plan of Treatment Upcoming Encounters Date Type Department Care Team (Late st Contact Info) Description 06/12/2024 11:15 AM EST Office Visit [place] [address] Catherine Harley, CIVIL GEOTECHNICAL ENGINEER [facility] [place] [address] documented as of this encounter Visit Diagnoses Not on filedocumented in this encounter Care Teams Insole Doubler Relationship Specialty Start Date End Date Leland Echavarria DNP [address] [place] [address] PCP - General Family Medicine 08/24/18 04/20/24 documented as of this encounter
--- OUTSIDE RECORDS SUMMARY | 2024-06-05 14:04 | XMS_ITS | Encounter Summary ---
Author Organization [facility] [place] [address] Care Team Providers Care Technical Coordinator Name Role Phone Leland Echavarria DNP Primary Care Provider Encounter Details Date Type Department Care Team (Late st Contact Info) Description 08/25/2018 [place] [address] Sandra Tucker [place] [address] of the chest Social History [...] Office Visit [place] [address] Catherine Harley APRN [facility] [place] [address] documented as of this encounter Results * [...] organs documented in this encounter Care Teams Technical Coordinator Relationship Specialty Start Date End Date Leland Echavarria DNP [address] [place] [address] PCP - General Family Medicine 08/24/18 04/20/24 documented as of this encounter
--- OUTSIDE RECORDS SUMMARY | 2024-06-05 14:04 | XMS_ITS | Encounter Summary ---
[place] [address] Care Team Providers Care Farm Boss Name Role Phone Leland Echavarria OLGA Primary Care Provider Encounter Details Date Type Department Care Team (Late st Contact Info) Description 09/16/2018 [place] [address] Leonela Miranda RT Social History Tobacco Use [...] home. Plan: forward pulmonary rehab referral to [facility]. Provided Yara their contact information also. documented in this encounter Plan of Treatment Upcoming Encounters Date Type Department Care Team (Late st Contact Info) Description 06/12/2024 11:15 AM EST Office Visit [place] [address] Catherine Harley, STEPHANIE [facility] [place] [address] documented as of this encounter Visit Diagnoses Not on filedocumented in this encounter Care Teams Farm Boss Relationship Specialty Start Date End Date Leland Echavarria DNP [facility] [address] [facility] [address] [place] [address] PCP - General Family Medicine 08/24/18 04/20/24 documented as of this encounter
--- OUTSIDE RECORDS SUMMARY | 2024-06-05 14:04 | XMS_ITS | Encounter Summary ---
[place] [address] Care Team Providers Care Rope Making Machine Operator Name Role Phone Leland Echavarria DNP Primary Care Provider [phone] Encounter Details Date Type Department Care Team (Late st Contact Info) Description 10/19/2018 11:30 AM EDT [place] [address] Leonela Miranda RT ARDS survivor Social History [...] work. 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 Seb Le. The program includes monitored [...] progress will be reviewed with the medical massage therapist every 2-4 weeks during the program. For [...] severe (almost maximal) 10 [facility] [place] ([facility]) Dyspnea Scale: 0: Breathless with strenuous [...] Anxiety 10-14: Moderate Anxiety 15-21: Severe Anxiety [facility] Shortness of Breath Questionnaire- reference scores: Minimal [...] Office Visit [place] [address] Catherine Harley APRN [facility] [place] [address] documented as of this encounter Visit Diagnoses Diagnosis ARDS survivor Personal history of other diseases of respiratory system documented in this encounter Care Teams Rope Making Machine Operator Relationship Specialty Start Date End Date Leland Echavarria DNP [address] [place] [address] PCP - General Family Medicine 08/24/18 04/20/24 documented as of this encounter
--- OUTSIDE RECORDS SUMMARY | 2024-06-05 14:04 | XMS_ITS | Encounter Summary ---
Author Organization [facility] [place] [address] Care Team Providers Care Worm Grower Name Role Phone Catalina Barroso APRN Primary Care Provider [phone] Encounter Details Date Type Department Care Team (Late st Contact Info) Description 07/20/2018 Ancillary Procedure Radiology Library [place] [facility] [place] [address] Sandra Tucker MD [facility] [place] [address] Social History Tobacco Use Types Packs/Day Years [...] Office Visit Pain and Spine Center at [facility] [place] [address] Catherine Harley APRN [facility] [place] [address] documented as of this encounter Procedures Procedure Name Priority Date/Time Associated Diagnosis Comments FILM LIBRARY STORAGE ONLY DX CHEST Routine 07/20/2018 12:00 AM EST documented in this encounter Results * Film Library- Storage Only DX Chest (07/20/2018 12:00 AM EST) Narrative JOHN - 08/31/2018 7:11 PM EDT This exam is auto-finalizing. It's purpose is for storage only. Sandra Zapien MD IMG FILM LIBRARY ORDERABLES Performing Organization Address City/State/[facility] Co de Phone Number [place], [place] documented in this encounter Visit Diagnoses Not on filedocumented in this encounter Care Teams Worm Grower Relationship Specialty Start Date End Date Catalina Barroso APRN PCP - General Family Medicine 05/20/18 08/23/18 documented as of this encounter
--- OUTSIDE RECORDS SUMMARY | 2024-06-05 14:04 | XMS_ITS | Encounter Summary ---
Author Organization [facility] [place] [address] Care Team Providers Care Manager Union Name Role Phone Leland Echavarria DNP Primary Care Provider Encounter Details Date Type Department Care Team (Late st Contact Info) Description 06/03/2021 [place] [address] Odalis Kirkalnd Social History Tobacco Use Types Packs/Day Years [...] Office Visit [place] [address] Catherine Harley APRN [facility] [place] [address] documented as of this encounter Visit Diagnoses Not on filedocumented in this encounter Care Teams Manager Union Relationship Specialty Start Date End Date Leland Echavarria DNP [place] [address] PCP - General Family Medicine 08/24/18 04/20/24 documented as of this encounter
--- OUTSIDE RECORDS SUMMARY | 2024-06-05 14:04 | XMS_ITS | Encounter Summary ---
Author Organization [facility] [place] [address] Care Team Providers Care Starch Dumper Name Role Phone Leland Echavarria DNP Primary Care Provider [phone] Encounter Details Date Type Department Care Team (Late st Contact Info) Description 08/29/2018 Ancillary Procedure Radiology Library [place] [address] Sandra Tucker MD [facility] [place] [address] Social History Tobacco Use Types Packs/Day Years [...] Office Visit Pain and Spine Center [place] [address] Catherine Harley APRN [facility] [address] [address] documented as of this encounter Procedures Procedure Name Priority Date/Time Associated Diagnosis Comments FILM LIBRARY STORAGE ONLY DX CHEST Routine 08/29/2018 12:00 AM EDT documented in this encounter Results * Film Library- Storage Only DX Chest (08/29/2018 12:00 AM EDT) Narrative [facility] - 08/31/2018 7:10 PM EDT This exam is auto-finalizing. It's purpose is for storage only. Sandra Zapien MD IMG FILM LIBRARY ORDERABLES Performing Organization Address City/State/[facility] Co de Phone Number [place], [place] documented in this encounter Visit Diagnoses Not on filedocumented in this encounter Care Teams Starch Dumper Relationship Specialty Start Date End Date Leland Echavarria DNP [address] [place] [address] PCP - General Family Medicine 08/24/18 04/20/24 documented as of this encounter
--- OUTSIDE RECORDS SUMMARY | 2024-06-05 14:05 | XMS_ITS | Encounter Summary ---
Author Organization [facility] Address [facility] [place] [address] Care Team Providers Care Sports Teacher Name Role Phone Lucy Brock APRN Primary Care Provider + Reason for Visit * Reason Comments Advice Only Encounter Details Date Type Department Care Team (Late st Contact Info) Description 05/19/2018 2:45 PM EST Office Visit Dermatology at [facility] [address] [place] [address] Daisha Butt MD Wood, Dakota M RN Encounter for cosmetic procedure Social History Tobacco Use Types Packs/Day Years Used Date Smoking Tobacco: Never Smokeless Tobacco: Never Sex and Gender Information Value Date Recorded Sex Assigned at Not on file Gender Identity Not on file Sexual Orientation Not on file documented as of this encounter Progress Notes * Isael Eddy - 05/19/2018 2:45 PM EST DERMATOLOGY COMMUNITY SUPPORT WORKER NOTE Date of service: 05/19/2018 Yara Lawton [...] - Appropriate peels for this patient include: Robyn peel, VENUS Peel - Number of treatments recommeded: 3-4 [...] begin ZO regimen next visit reviewed by: venu date: n/a -instructions in AVS dated n/a -discussed importance of meticulous sun protection -Patient will schedule for a later visit due to time contraints # Photography: needs to be done at next visit Patient charged today: no charge FOLLOW UP WHEN: Next available FOR WHAT: skin care LENGTH OF VISIT: 30 min NUMBING?: no PICTURES NEEDED? yes COST: no charge NOTES: Isael Eddy Sat Act Instructor documented in this encounter Plan of Treatment Upcoming Encounters Date Type Department Care Team (Late st Contact Info) Description 06/12/2024 11:15 AM EST Office Visit [place] [address] Catherine Harley APRN [facility] [place] [address] documented as of this encounter Visit Diagnoses Diagnosis Encounter for cosmetic procedure documented in this encounter Care Teams Sports Teacher Relationship Specialty Start Date End Date Lucy Brock APRN PCP - General 04/22/10 05/19/18 documented as of this encounter
--- OUTSIDE RECORDS SUMMARY | 2024-06-05 14:05 | XMS_ITS | Encounter Summary ---
Author Organization [facility] [place] [address] Care Team Providers Care Eviscerator Name Role Phone Catalina Barroso APRN Primary Care Provider [phone] Encounter Details Date Type Department Care Team (Late st Contact Info) Description 06/24/2018 Telephone Dermatology at [facility] [address] [place] [phone] Isael Eddy RN Social History Tobacco Use [...] Office Visit [facility] [place] [address] Catherine Harley APRN [facility] [place] [address] documented as of this encounter Visit Diagnoses Not on filedocumented in this encounter Care Teams Eviscerator Relationship Specialty Start Date End Date Catalina Barroso APRN PCP - General Family Medicine 05/20/18 08/23/18 documented as of this encounter
--- OUTSIDE RECORDS SUMMARY | 2024-06-05 14:05 | XMS_ITS | Encounter Summary ---
Author Organization [facility] [place] [address] Care Team Providers Care Poultry Vaccinator Name Role Phone Catalina Barroso APRN Primary Care Provider Encounter Details Date Type Department Care Team (Late st Contact Info) Description 05/30/[address] [facility] [address] [place] [address] Isael Eddy RN Social History Tobacco Use [...] Office Visit [facility] [place] [address] Catherine Harley APRN [facility] [place] [address] documented as of this encounter Visit Diagnoses Not on filedocumented in this encounter Care Teams Poultry Vaccinator Relationship Specialty Start Date End Date Catalina Barroso APRN PCP - General Family Medicine 05/20/18 08/23/18 documented as of this encounter
--- OUTSIDE RECORDS SUMMARY | 2024-06-05 14:05 | XMS_ITS | Encounter Summary ---
Author Organization [facility] [place] [address] Care Team Providers Care Cosmetician Apprentice Name Role Phone Leland Echavarria OLGA Primary Care Provider Encounter Details Date Type Department Care Team (Late st Contact Info) Description 06/06/2014 Abstract Danielle Alina Stevenson Conversion Results [address] [place] [address] Apd Conversion, Flowsheet Provider, Social History Tobacco [...] Office Visit [facility] [place] [address] Catherine Harley APRN [facility] [place] [address] documented as of this encounter Visit Diagnoses Not on filedocumented in this encounter Care Teams Cosmetician Apprentice Relationship Specialty Start Date End Date Leland Echavarria DNP [facility] [address] [place] [address] PCP - General Family Medicine 08/24/18 04/20/24 documented as of this encounter
--- OUTSIDE RECORDS SUMMARY | 2024-06-05 14:05 | XMS_ITS | Encounter Summary ---
Author Organization [facility] [place] [address] Care Team Providers Care Real Estate Administrative Assistant Name Role Phone Lucy Brock APRN Primary Care Provider + Encounter Details Date Type Department Care Team (Late st Contact Info) Description 05/18/2018 Telephone Dermatology at [place] [address] [place] [phone] Mayelin Sands PA Social History Tobacco Use Types Packs/Day Years [...] Office Visit [facility] [place] [address] Catherine Harley APRN [facility] [place] [address] documented as of this encounter Visit Diagnoses Not on filedocumented in this encounter Care Teams Real Estate Administrative Assistant Relationship Specialty Start Date End Date Lucy Brock APRN PCP - General 04/22/10 05/19/18 documented as of this encounter
--- OUTSIDE RECORDS SUMMARY | 2024-06-05 14:05 | XMS_ITS | Encounter Summary ---
Author Organization [facility] Address [facility] [place] [address] Care Team Providers Care Front Office Spec Name Role Phone Catalina Barroso APRN Primary Care Provider [phone] Reason for Visit * Reason Comments Procedure Encounter Details Date Type Department Care Team (Late st Contact Info) Description 05/20/2018 3:00 PM EST Office Visit Dermatology at [place] [address] [place] [address] Howard Hammer MD [facility] [address] [place] [address] Isael Eddy RN Encounter for cosmetic procedure [...] Wash face with lukewarm water. 2. Exfoliating Malaysian: Apply to moistened face, massage for 60 [...] adjustand become stronger with sustained use. Exfoliating Malaysian: Benefits: 1) Increases circulation and skin turnover [...] peel. ?? Stop all abrasive scrubs (Exfoliating Malaysian, Vitascrub or other) 5 days before your [...] using 1 tspn of white household vinegar (apple cider vinegar works too) per cup of [...] after your procedure please call our clinic: [phone] If you have an emergency after hours please call Dr. Herrera's cell: [phone] documented in this encounter Progress Notes * Howard Hammer MD - 05/20/2018 3:00 PM EST DERMATOLOGY [employer] SWITCHBOARD OPERATOR NOTE Date of service:05/20/2018 Yara Lawton : [...] skincare regimen: regimen or products: Exfoliating Cleanser, Malaysian, Complexion Renewal Pads reviewed by:ALYSHA date: 05/20/2018 [...] yes COST: no charge NOTES: Isael Eddy Sliver Former documented in this encounter Plan of Treatment Upcoming Encounters Date Type Department Care Team (Late st Contact Info) Description 06/12/2024 11:15 AM EST Office Visit [facility] [place] [address] Catherine Harley APRN [facility] [place] [address] documented as of this encounter Visit Diagnoses Diagnosis Encounter for cosmetic procedure documented in this encounter Care Teams Front Office Spec Relationship Specialty Start Date End Date Catalina Barroso APRN PCP - General Family Medicine 05/20/18 08/23/18 documented as of this encounter
--- OUTSIDE RECORDS SUMMARY | 2024-06-05 14:05 | XMS_ITS | Encounter Summary ---
Author Organization [facility] Address [facility] Cristina [facility] [place] [address] Care Team Providers Care Office Support Clerk Name Role Phone Lucy Brock APRN Primary Care Provider + Reason for Visit * Reason Comments Rosacea Encounter Details Date Type Department Care Team (Late st Contact Info) Description 05/19/2018 2:00 PM EST Office Visit Dermatology at [facility] [address] [place] [address] Daisha Butt MD Schreiner, Marie B, PA Seborrheic dermatitis Social History Tobacco Use Types [...] peel. ?? Stop all abrasive scrubs (Exfoliating Somali, Vitascrub or other) 5 days before your [...] after your procedure please call our clinic: [phone] If you have an emergency after hours please call Dr. Herrera's cell: [phone] documented in this encounter Progress Notes * Daisha Butt MD - 05/19/2018 2:00 PM EST DERMATOLOGY - NEW PATIENT NOTE Date of service: 05/19/2018 Yaar Lawton : 1960, 57 y.o. CC: Chief [...] clear and then 1-2 times weekly. LOS: [id number] RTC: PRN Note initiated by Laura Hopper [...] Reviewed and signed by Mayelin Sands PA-C [facility] Patient seen in conjunction with staff hoisting laborer: Daisha Butt MD Section of Dermatology [facility] * Daisha Butt MD - 05/19/2018 2:00 [...] Office Visit [facility] [place] [address] Catherine Harley APRN [facility] [place] [address] documented as of this encounter Visit Diagnoses Diagnosis Seborrheic dermatitis Seborrheic dermatitis, unspecified documented in this encounter Care Teams Office Support Clerk Relationship Specialty Start Date End Date Lucy Brock APRN PCP - General 04/22/10 05/19/18 documented as of this encounter
--- OUTSIDE RECORDS SUMMARY | 2024-06-05 14:05 | XMS_ITS | Encounter Summary ---
Author Organization [facility] [place] [address] Care Team Providers Care Supervisor Veneer Name Role Phone Lucy Brock APRN Primary Care Provider + Encounter Details Date Type Department Care Team (Late st Contact Info) Description 10/05/2013 - 10/05/2013 11:59 PM EDT Hospital Encounter Radiology Library at [facility] [place] [address] [facility] Discharge Disposition: Home Social History [...] Office Visit [facility] at [facility] [place] [address] Catherine Harley AUTOMATION AND CONTROLS MANAGER [facility] [place] [address] documented as of this encounter Procedures Procedure Name Priority Date/Time Associated Diagnosis Comments FILM LIBRARY STORAGE ONLY MAMMO Routine 10/05/2013 12:00 AM EDT Screening documented in this encounter Results * Film Library- Storage only Mammo (10/05/2013 12:00 AM EDT) Narrative RAD - 10/08/2015 12:24 AM EDT This exam is for storage only and is auto-finalizing. [facility] FILM LIBRARY ORD ERABLES Performing Organization Address City/State/[facility] Co de Phone Number [place], [place] documented in this encounter Visit Diagnoses Diagnosis Screening Screening for unspecified condition documented in this encounter Care Teams Supervisor Veneer Relationship Specialty Start Date End Date Lucy Brock, STEPHANIE PCP - General 04/22/10 05/19/18 documented as of this encounter
--- OUTSIDE RECORDS SUMMARY | 2024-06-05 14:05 | XMS_ITS | Encounter Summary ---
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 Name Role Phone Catalina Barroso APRN Primary Care Provider [phone] Reason for Referral * Physical Therapy (Routine) - Closed Specialty Diagnoses / Procedures Referred By Contmarla t Referred To Contact Physical Therapy Diagnoses Physical deconditioning Acute respiratory distress syndrome (ARDS) Acute respiratory failure with hypoxia [place] [address] Jael Espana, PT [address] [place] [address] Referral ID Status Reason Start Date Expiration Date V isits Requested Visits Authorized [id number] Closed Evaluate and Treat 07/14/2018 01/10/2019 10 10 Reason for Visit * Auth/Cert Specialty Diagnoses / Procedures Referred By Contmarla t Referred To Contact Diagnoses Respiratory failure with hypoxia PERICARDIAL EFFUSION Procedures EMERGENCY IPI Referral ID Status Reason Start Date Expiration Date Visits Re quested Visits Authorized [id number] 1 1 Encounter Details Date Type Department Care Team (Latest Contact Info) Description 06/26/2018 10:22 AM EST - 07/14/2018 2:00 PM EST Hospital Encounter Neuro Critical Care Unit - [address] [place] [phone] [facility] [place] [address] Vipin Parker MD Jones, Brian L, MD [facility] [place] [address] Carol Ann Ingram MD Mathew, Robert [place], [place] [address] [place] [address] Acute on chronic respiratory failure with hypoxia; [...] Yara Lawton Patient Age: 58 y.o. Language: Sri Lankan Race: White Ethnicity: Not nor Admit date: [...] PT. Placed referral for one option in [facility]. Please follow-up at her PCP appointment to ensure she is set up with outpatient PT. She is deconditioned from her hospitalization. Inpatient Provider Contact Information: For questions regarding this document or issues relating to this hospitalization on the Medical Service, please contact your inpatient physician through the [facility] [employer] . Issues afterhours and on weekends will [...] and Migraines, who presents in transfer from [facility] with acute hypoxic respiratory failure secondary to influenza A. ?? HPI: (per admitting MD) ?? Ms. Lawton reports that she began feeling unwell on Wednesday of this past week, she developed a productive cough and was experiencing chills and rigors. She then developed progressive shortness of breath, which is what caused her to seek medical evaluation at [facility] this morning. ?? On arrival there she [...] 7.52/33/74/27 on 100% NRBM ?? Care at [facility]: -Vancomycin 1.5gms IV at 0730 -LR 1L IV -Azithromycin 500mg IV at 0730 -Ceftriaxone 2gms IV at 0730 -Tamiflu 75mg PO at 0800 ?? Pertinent Imaging: -CT Chest without contrast: bilateral multifocal patchy infiltrates suggestive of multifocal pneumonia. -Chest XR: bilateral patchy infiltrates. ?? She arrived to [facility] in no acute respiratory distress, but saturating [...] for 5 days. Legionella antibody positive at [facility] however legionella urinary antigen and legionella respiratory culture negative at [facility] and so azithromycin was stopped (treated from 06/30-07/02). She was extubated 07/06 to [place]. She improved and was able to wean [...] Last Ca, Mg, Phos Recent Labs 07/10/18 022 CALCIUM 8.6 Last 3 Coags No results for input(s): PT, INR, PTT in the last 168 hours. Last 3 ProBNP, Trop, CK No results for input(s): CK, TROPONINT, PROBNP in the last 168 hours. Final result Specimen: ??Nasopharyngeal Swab Updated: ??06/26/18 1314 ? Resp Panel Source BUNDLE SORTER Swab ? Resp Panel PCR Positive ? Comment: Respiratory Panels are performed on the [employer], using multiplexed PCR nucleic acid detection. ??Negative [...] Jul 20 1:45pm Leland Echavarria - (new BUNDLE SORTER in clinic) [facility] Your Inpatient Doctor(s) at [facility]: Dr. Hernandez - [facility] Medicine General Instructions None Future Appointments and Orders Future Orders Complete By Expires Referral to Physical Therapy [REF87 Custom] As directed Process Instructions: Note: Please indicate in the comments any additional Instructions, Precautions or Contra-indications. Scheduling Instructions: Questions: Reason for PT: Recent admission for influenza with prolonged hospitalization - remains fatigued above baseline but making progress. Inpatient PT recommending outpatient PT in [facility] Specialty Program Eval: Other (see comments) [...] referred to an outpatient physical therapy in [facility]. You can also discuss referral at your appointment on July 20 if you would prefer a different outpatient clinic. Follow-Up Appointments Date and Time Provider and Specialty Location Wednesday, Jul 20 1:45pm Leland Echavarria - (new BUNDLE SORTER in clinic) [facility] Your Inpatient Doctor(s) at [facility]: Dr. Hernandez - [facility] Medicine documented in this encounter Medications at [...] spent >30 minutes (Day of Discharge Code 89064) involved in the final examination of the [...] who was transferred from an OSH, 06/26/18, / Bilateral PNA and influenza A. She developed respiratory failure with hypoxia and required intubation. Pt was in ICU for a period of time issues with ARDS, dysphagia, and weakness. Extubated on 07/06/18; transferred from the ICU to [address] [place] [address] unit on 07/07/18 Precautions/Restrictions: fall Assessment: Pt seen [...] in conjunction w/ ECHO MCMILLAN PTA Pager: [phone] Inpatient Physical Therapy Timed Up & Go (TUG) Average of two trials (seconds): 8.31 seconds Assistive device used: No Comments: Steady & balanced. Normal test = < 10 seconds > 13.5 seconds = fall risk Zaida Elliott, Luiza CHILD, Annabella Allen. Balance in Elderly Patients:THe Get-up and Go [...] of stands - Men 60 - 64 12 - 17 14 - 19 65 - 69 11 - 16 12 - 18 Patrick RE, [...] on 07/06/18; transferred from the ICU to [address] [place] [address] unit on 07/07/18 Precautions/Restrictions fall Treatment Number PT 6 Living Environment Patient population Adult Living Environment Living Environment Comment Lives alone in a one level home, 3 stairs with a rail to enter. Reports family lives 4 miles away and will check in. 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 She walked without a device, was driving, and enjoys walking and gardening. Bed Mobility Assessment/Treatment Hfaone-ki-Vpw [place] (Bed Mobility) independent Ptu-dt-Ojfjnz [place] (Bed Mobility) independent Impairments (Bed Mobility) strength decreased Comment (Bed Mobility) Able to perform with no AD, flat bed.. Transfer Assessment/Treatment Bed-Chair [place] (Transfers) independent Chair-Bed [place] (Transfers) independent [place] (Sit-Stand Transfers) independent [place] (Stand-Sit Transfers) independent Comment (Transfers) Able to transfer from chair to bed and back, no AD, safely & steadily. Gait Assessment/Treatment [place] (Gait) conditional independence Assistive Device (Gait) straight [...] 4 Handrail Location (Stairs) right side (ascending) [place] (Stairs) supervision required Technique (Stairs) rrdz-zcxb-hbnw (ascending);qnwz-zbcu-okyz (descending) Comment (Stairs) Able to perform stairs safely. Special Tests Timed Up and Go Score 8.31 Plan of Care Review Plan Of Care Reviewed With patient Bed Mobility Goal Bed Mobility Goal, Date Established 07/05/18 Bed Mobility Goal, Activity Type supine to sit/sit to supine Bed Mobility Goal, [place] Level supervision required;conditional independence Bed Mobility Goal, Date Goal Reviewed 07/10/18 Bed Mobility Goal, Outcome Achieved goal met Gait Training Goal Gait Training Goal, Date Established 07/05/18 Gait Training Goal, Time to Achieve 30 days Gait Training Goal, [place] Level minimum assist (75% patient effort) Gait [...] 30 days Transfer Training Goal, Activity Type gya-vm-ompvt/jgawg-zs-aej Transfer Train Goal, [place] Level conditional independence Transfer Training Goal, Assist [...] 168 hours. No results for input(s): PHART, JPE8OBL, PO2ART, ZBF1ZSM in the last 168 hours. Microbiology: Microbiology Results (Last 30 days) ?? Procedure Component Value Units Date/Time ?? Lower Respiratory Culture Sputum Expectorated [[id number]] (Abnormal) Collected: 07/01/18 034 ?? Lab Status: [...] respiratory germaine ?? Legionella culture Sputum Expectorated [[id number]] Collected: 07/01/18 034 ?? Lab Status: Preliminary result Specimen: Sputum Expectorated Updated: 07/02/18 0842 ? Legionella Culture No Legionella isolated to date ?? Blood culture [[id number]] Collected: 06/30/18 1300 ?? Lab Status: Final result Specimen: Blood from Wrist, Right Updated: 07/05/18 1501 ? Blood Culture No growth at 5 days. ?? Blood culture [[id number]] Collected: 06/30/18 1300 ?? Lab Status: Final result Specimen: Blood from Wrist, Left Updated: 07/05/18 1501 ? Blood Culture No growth at 5 days. ?? Urine culture Indwelling Catheter Urine [[id number]] Collected: 06/26/18 1226 ?? Lab Status: Final result Specimen: Urine Updated: 06/27/18 0751 ? Urine Culture No growth (Less than 1,000 cfu/ml). ?? Legionella Urinary Antigen [[id number]] Collected: 06/26/18 1225 ?? Lab Status: Final [...] 95% Specificity 95%. ? Respiratory Panel PCR [[id number]] (Abnormal) Collected: 06/26/18 1140 ?? Lab Status: Final result Specimen: Nasopharyngeal Swab Updated: 06/26/18 1314 ? Resp Panel Source BUNDLE SORTER Swab ? Resp Panel PCR Positive ? Comment: Respiratory Panels are performed on the [employer], using multiplexed PCR nucleic acid detection. Negative [...] Mycoplasma pneumoniae Not Detected ?? Blood culture [[id number]] Collected: 06/26/18 1105 ?? Lab Status: Final [...] at end of week. Does not have 21/12 support but brothers nearby. HR to 130 with ambulating today and brief desat after ambulating. # Hypoxic Respiratory Failure 2/2 ARDS # ARDS 2/2 Influenza A # Influenza A - S/p 5 days tamiflu (end date 07/02) for influenza A - Legionella antibody positive at [facility] however legionella urinary antigen and legionella respiratory culture negative at [facility] and so azithromycin was stopped (treated from [...] moving around with PT Korey Hernandez MD [address] [place] [address] 07/13/2018 * Maebl Joseph, RD - 07/12/2018 1:36 PM EST [...] encounter: 72.1 kg (158 lb 15.2 oz). [place] Body Weight (IBW): [place] body weight: 59.3 kg (130 lb 11.7 [...] no focal deficits Labs: Recent Labs 07/08/18 0819 07/07/18 0137 07/06/18 0255 WBC 8.6 13.6* 11.4* [...] 168 hours. No results for input(s): PHART, FKO6GPC, PO2ART, SEK1GIL in the last 168 hours. Microbiology: Microbiology Results (Last 30 days) ?? Procedure Component Value Units Date/Time ?? Lower Respiratory Culture Sputum Expectorated [[id number]] (Abnormal) Collected: 07/01/18 034 ?? Lab Status: [...] respiratory germaine ?? Legionella culture Sputum Expectorated [[id number]] Collected: 07/01/18 034 ?? Lab Status: Preliminary result Specimen: Sputum Expectorated Updated: 07/02/18 0842 ? Legionella Culture No Legionella isolated to date ?? Blood culture [[id number]] Collected: 06/30/18 1300 ?? Lab Status: Final result Specimen: Blood from Wrist, Right Updated: 07/05/18 1501 ? Blood Culture No growth at 5 days. ?? Blood culture [[id number]] Collected: 06/30/18 1300 ?? Lab Status: Final result Specimen: Blood from Wrist, Left Updated: 07/05/18 1501 ? Blood Culture No growth at 5 days. ?? Urine culture Indwelling Catheter Urine [[id number]] Collected: 06/26/18 1226 ?? Lab Status: Final result Specimen: Urine Updated: 06/27/18 0751 ? Urine Culture No growth (Less than 1,000 cfu/ml). ?? Legionella Urinary Antigen [[id number]] Collected: 06/26/18 1225 ?? Lab Status: Final [...] 95% Specificity 95%. ? Respiratory Panel PCR [[id number]] (Abnormal) Collected: 06/26/18 1140 ?? Lab Status: Final result Specimen: Nasopharyngeal Swab Updated: 06/26/18 1314 ? Resp Panel Source BUNDLE SORTER Swab ? Resp Panel PCR Positive ? Comment: Respiratory Panels are performed on the [employer], using multiplexed PCR nucleic acid detection. Negative [...] Mycoplasma pneumoniae Not Detected ?? Blood culture [[id number]] Collected: 06/26/18 1105 ?? Lab Status: Final [...] A pneumonia now with improved hypoxia on OH. Course also complicated by weakness and dysphagia from ICU course which continues to improve. Medically ready for rehab. # Hypoxic Respiratory Failure 2/2 ARDS # ARDS 2/2 Influenza A # Influenza A - S/p 5 days tamiflu (end date 07/02) for influenza A - Legionella antibody positive at [facility] however legionella urinary antigen and legionella respiratory culture negative at [facility] and so azithromycin was stopped (treated from 06/30-07/02) - Continue PRN duo-nebs - Weaning O2 as tolerates, still requiring O2 by [place] (no home O2) ?? # Dysphagia/Hoarseness improved: [...] ready awaiting rehab bed Korey Hernandez MD [address] [place] [address] 07/12/2018 * My Morton RN - 07/12/2018 6:37 AM EST I assumed care from 0300 - 0730. Pt has been sleeping throughout this time. * Dee Dee Segal RN - 07/11/2018 7:10 PM EST Office of Care Management Progress Note Ms. Lawton is progressing with the medical plan of care and Care Team believes that she is medically ready to transition to SNF level of care. Updates provided to facilities ([facility]) and [facility] in [place], [place]. [facility] is patient's first choice but both facilities are in network with her insurance. CM will continue to follow to offer support and assist with care transition. Sadaf Segal RNCM Pager: [phone] * Korey Hernandez MD - 07/11/2018 10:15 [...] no focal deficits Labs: Recent Labs 07/08/1881807/07/18 0137 07/06/18 0255 WBC 8.6 13.6* 11.4* HGB 9.8* 9.0* 8.4* PLATELET 376* 410* 296 Recent Labs 07/10/1822107/08/18 0807/07/18 0137 NA 138 144 142 K 3.7 3.7 3.6 CL 102 103 100 CO2 26 28 30 BUN 18 21* 19* CREATININE 0.54* 0.51* 0.47* Recent Labs 07/10/1822107/08/18 0807/07/18 0137 07/06/18 0255 07/05/18 0258 CALCIUM 8.6 8.8 8.6 8.8 8.7 MAGNESIUM -- -- 0.93 0.87 0.80 PHOS -- -- 3.8 3.9 3.9 No results for input(s): AST, ALT, ALKPHOS, BILITOT, BILIDIR in the last 168 hours. No results for input(s): TROPONINT, CK in the last 168 hours. No results for input(s): PHART, YVX4CFP, PO2ART, JPS2TPL in the last 168 hours. Microbiology: Microbiology Results (Last 30 days) ?? Procedure Component Value Units Date/Time ?? Lower Respiratory Culture Sputum Expectorated [[id number]] (Abnormal) Collected: 02/01/19 0341 ?? Lab Status: Final result Specimen: Sputum Expectorated Updated: 07/03/18 0758 ? Lower Respiratory Culture -- ? [place] albicans Rare mixed bacterial morphotypes suggestive of normal upper respiratory germaine ? Gram Stain -- ? Few Neutrophils seen Few squamous epithelial cells seen Few Yeast seen Rare mixed bacterial morphotypes suggestive of normal upper respiratory germaine ?? Legionella culture Sputum Expectorated [[id number]] Collected: 07/01/18 0341 ?? Lab Status: Preliminary result Specimen: Sputum Expectorated Updated: 07/02/18 0842 ? Legionella Culture No Legionella isolated to date ?? Blood culture [[id number]] Collected: 06/30/18 1300 ?? Lab Status: Final result Specimen: Blood from Wrist, Right Updated: 07/05/18 1501 ? Blood Culture No growth at 5 days. ?? Blood culture [[id number]] Collected: 06/30/18 1300 ?? Lab Status: Final result Specimen: Blood from Wrist, Left Updated: 07/05/18 1501 ? Blood Culture No growth at 5 days. ?? Urine culture Indwelling Catheter Urine [[id number]] Collected: 06/26/18 1226 ?? Lab Status: Final result Specimen: Urine Updated: 06/27/18 0751 ? Urine Culture No growth (Less than 1,000 cfu/ml). ?? Legionella Urinary Antigen [[id number]] Collected: 06/26/18 1225 ?? Lab Status: Final [...] 95% Specificity 95%. ? Respiratory Panel PCR [[id number]] (Abnormal) Collected: 06/26/18 1140 ?? Lab Status: Final result Specimen: Nasopharyngeal Swab Updated: 06/26/18 1314 ? Resp Panel Source BUNDLE SORTER Swab ? Resp Panel PCR Positive ? Comment: Respiratory Panels are performed on the [employer], using multiplexed PCR nucleic acid detection. Negative [...] Mycoplasma pneumoniae Not Detected ?? Blood culture [[id number]] Collected: 06/26/18 1105 ?? Lab Status: Final [...] - appreciate CM.?? # Hypoxic Respiratory Failure 2/2 ARDS # ARDS 2/2 Influenza A # Influenza A - S/p 5 days tamiflu (end date 07/02) for influenza A - Legionella antibody positive at [facility] however legionella urinary antigen and legionella respiratory culture negative at [facility] and so azithromycin was stopped (treated from 06/30-07/02) - Continue PRN duo-nebs - Weaning O2 as tolerated, still requiring O2 by [place] (no home O2) ?? # Dysphagia/Hoarseness: - [...] - Dispo: Anticipate SNF (does not have / support) when bed available - appreciate CM Korey Hernandez MD [address] [place] [address] medicine 07/11/2018 * Korey Hernandez MD - [...] 8.4* PLATELET 376* 410* 296 Recent Labs 07/10/1822107/08/18 0807/07/18 013 NA 138 144 142 K 3.7 3.7 3.6 CL 102 103 100 CO2 26 28 30 BUN 18 21* 19* CREATININE 0.54* 0.51* 0.47* Recent Labs 07/10/1822107/08/18 0807/07/18 0137 07/06/18 0255 07/05/18 0258 CALCIUM 8.6 8.8 8.6 8.8 8.7 MAGNESIUM -- -- 0.93 0.87 0.80 PHOS -- -- 3.8 3.9 3.9 No results for input(s): AST, ALT, ALKPHOS, BILITOT, BILIDIR in the last 168 hours. No results for input(s): TROPONINT, CK in the last 168 hours. Recent Labs 07/04/18 0310 07/03/18 1727 PHART 7.49* 7.44 EVH5YGF 43 50* PO2ART 72* 65* XYW3HDM 31.7* 33.1* Microbiology: Microbiology Results (Last 30 days) ?? Procedure Component Value Units Date/Time ?? Lower Respiratory Culture Sputum Expectorated [[id number]] (Abnormal) Collected: 07/01/18 034 ?? Lab Status: [...] respiratory germaine ?? Legionella culture Sputum Expectorated [[id number]] Collected: 07/01/18 034 ?? Lab Status: Preliminary result Specimen: Sputum Expectorated Updated: 07/02/18 0842 ? Legionella Culture No Legionella isolated to date ?? Blood culture [[id number]] Collected: 06/30/18 1300 ?? Lab Status: Final result Specimen: Blood from Wrist, Right Updated: 07/05/18 1501 ? Blood Culture No growth at 5 days. ?? Blood culture [[id number]] Collected: 06/30/18 1300 ?? Lab Status: Final result Specimen: Blood from Wrist, Left Updated: 07/05/18 1501 ? Blood Culture No growth at 5 days. ?? Urine culture Indwelling Catheter Urine [[id number]] Collected: 06/26/18 1226 ?? Lab Status: Final result Specimen: Urine Updated: 06/27/18 0751 ? Urine Culture No growth (Less than 1,000 cfu/ml). ?? Legionella Urinary Antigen [[id number]] Collected: 06/26/18 1225 ?? Lab Status: Final [...] 95% Specificity 95%. ? Respiratory Panel PCR [[id number]] (Abnormal) Collected: 06/26/18 1140 ?? Lab Status: Final result Specimen: Nasopharyngeal Swab Updated: 06/26/18 1314 ? Resp Panel Source BUNDLE SORTER Swab ? Resp Panel PCR Positive ? Comment: Respiratory Panels are performed on the [employer], using multiplexed PCR nucleic acid detection. Negative [...] Mycoplasma pneumoniae Not Detected ?? Blood culture [[id number]] Collected: 06/26/18 1105 ?? Lab Status: Final [...] to improve. Anticipating rehab - she prefers [facility]. ?? # Hypoxic Respiratory Failure 2/ ARDS # ARDS 07/02 Influenza A # Influenza A - S/p 5 days tamiflu (end date 07/02) for influenza A - Legionella antibody positive at [facility] however legionella urinary antigen and legionella respiratory culture negative at [facility] and so azithromycin was stopped (treated from 06/30-07/02) - Continue PRN duo-nebs - Weaning O2 as tolerated, still requiring O2 by [place] (no home O2) ?? 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 [...] 74 kg (163 lb 2.3 oz) 07/04/18 06 75 kg (165 lb 5.5 oz) 07/03/18 020 75.6 kg (166 lb 10.7 oz) Physical Exam: General - Lying in bed, pleasant, NAD HEENT: Anicteric sclera, EOMI CV: RRR, no m/r/g Pulm: Relatively clear, no crackles or wheezes Abd: Soft, ND, +BS, non-tender to deep palpation Ext: no edema Neuro: Oriented and appropriate, no focal deficits Labs: Recent Labs 07/08/1881807/07/1813607/06/18 025 WBC 8.6 13.6* 11.4* HGB 9.8* 9.0* 8.4* PLATELET 376* 410* 296 Recent Labs 07/08/18 0807/07/1813607/06/18 025 NA 144 142 141 K 3.7 3.6 4.0 CL 103 100 99 CO2 28 30 32* BUN 21* 19* 22* CREATININE 0.51* 0.47* 0.49* Recent Labs 07/08/18 0807/07/18 01307/06/18 0255 07/05/18 0258 CALCIUM 8.8 8.6 8.8 8.7 MAGNESIUM -- 0.93 0.87 0.80 PHOS -- 3.8 3.9 3.9 No results for input(s): AST, ALT, ALKPHOS, BILITOT, BILIDIR in the last 168 hours. Recent Labs 07/03/18 0215 CK 59 Recent Labs 07/04/18 0310 07/03/18 1727 07/03/18 1214 PHART 7.49* 7.44 7.41 IWI8DKQ 43 50* 50* PO2ART 72* 65* 66* BAO3ELB 31.7* 33.1* 30.5* Microbiology: Microbiology Results (Last 30 days) ?? Procedure Component Value Units Date/Time ?? Lower Respiratory Culture Sputum Expectorated [[id number]] (Abnormal) Collected: 07/01/18 034 ?? Lab Status: [...] respiratory germaine ?? Legionella culture Sputum Expectorated [[id number]] Collected: 07/01/18 0341 ?? Lab Status: Preliminary result Specimen: Sputum Expectorated Updated: 07/02/18 0842 ? Legionella Culture No Legionella isolated to date ?? Blood culture [[id number]] Collected: 06/30/18 1300 ?? Lab Status: Final result Specimen: Blood from Wrist, Right Updated: 07/05/18 1501 ? Blood Culture No growth at 5 days. ?? Blood culture [[id number]] Collected: 06/30/18 1300 ?? Lab Status: Final result Specimen: Blood from Wrist, Left Updated: 07/05/18 1501 ? Blood Culture No growth at 5 days. ?? Urine culture Indwelling Catheter Urine [[id number]] Collected: 06/26/18 1226 ?? Lab Status: Final result Specimen: Urine Updated: 06/27/18 0751 ? Urine Culture No growth (Less than 1,000 cfu/ml). ?? Legionella Urinary Antigen [[id number]] Collected: 06/26/18 1225 ?? Lab Status: Final [...] 95% Specificity 95%. ? Respiratory Panel PCR [[id number]] (Abnormal) Collected: 06/26/18 1140 ?? Lab Status: Final result Specimen: Nasopharyngeal Swab Updated: 06/26/18 1314 ? Resp Panel Source BUNDLE SORTER Swab ? Resp Panel PCR Positive ? Comment: Respiratory Panels are performed on the [employer], using multiplexed PCR nucleic acid detection. Negative [...] Mycoplasma pneumoniae Not Detected ?? Blood culture [[id number]] Collected: 06/26/18 1105 ?? Lab Status: Final [...] A pneumonia now with improved hypoxia on OH. Course also complicated by weakness and dysphagia from ICU course which is improving. Will need rehab - she prefers [facility]. ?? # Hypoxic Respiratory Failure 2/2 ARDS # ARDS 2/2 Influenza A # Influenza A - S/p 5 days tamiflu (end date 07/02) for influenza A - Legionella antibody positive at [facility] however legionella urinary antigen and legionella respiratory culture negative at [facility] and so azithromycin was stopped (treated from 06/30-07/02) - Continue PRN duo-nebs - Weaning O2 as tolerated, still requiring O2 by [place] (no home O2) ?? # Dysphagia/Hoarseness: Hoarseness [...] in CM note 07/06 Korey Hernandez MD [address] [place] [address] medicine 07/09/2018 * Jesus Juárez - 07/08/2018 [...] for the past 168 hrs: Weight 07/07/18 06 72.1 kg (158 lb 15.2 oz) 07/05/18 020 74 kg (163 lb 2.3 oz) 07/04/18 06 75 kg (165 lb 5.5 oz) 07/03/18199 75.6 kg (166 lb 10.7 oz) 07/02/18199 [...] - person,place and time. Labs: Recent Labs 07/08/1881807/07/1813607/06/18254 WBC 8.6 13.6* 11.4* HGB 9.8* 9.0* 8.4* PLATELET 376* 410* 296 Recent Labs 07/08/1881807/07/1813607/06/18 025 NA 144 142 141 K 3.7 3.6 4.0 CL 103 100 99 CO2 28 30 32* BUN 21* 19* 22* CREATININE 0.51* 0.47* 0.49* Recent Labs 07/08/1881807/07/1813607/06/18 02507/05/18 0258 CALCIUM 8.8 8.6 8.8 8.7 MAGNESIUM -- 0.93 0.87 0.80 PHOS -- 3.8 3.9 3.9 No results for input(s): AST, ALT, ALKPHOS, BILITOT, BILIDIR in the last 168 hours. Recent Labs 07/03/18 0215 CK 59 Recent Labs 07/04/18 0310 07/03/18 1727 07/03/18 1214 PHART 7.49* 7.44 7.41 PSV8MRT 43 50* 50* PO2ART 72* 65* 66* NDT2TYB 31.7* 33.1* 30.5* Microbiology: Microbiology Results (Last 30 days) ?? Procedure Component Value Units Date/Time ?? Lower Respiratory Culture Sputum Expectorated [[id number]] (Abnormal) Collected: 07/01/18 034 ?? Lab Status: [...] respiratory germaine ?? Legionella culture Sputum Expectorated [[id number]] Collected: 07/01/18 034 ?? Lab Status: Preliminary result Specimen: Sputum Expectorated Updated: 07/02/18 0842 ? Legionella Culture No Legionella isolated to date ?? Blood culture [[id number]] Collected: 06/30/18 1300 ?? Lab Status: Final result Specimen: Blood from Wrist, Right Updated: 07/05/18 1501 ? Blood Culture No growth at 5 days. ?? Blood culture [[id number]] Collected: 06/30/18 1300 ?? Lab Status: Final result Specimen: Blood from Wrist, Left Updated: 07/05/18 1501 ? Blood Culture No growth at 5 days. ?? Urine culture Indwelling Catheter Urine [[id number]] Collected: 06/26/18 1226 ?? Lab Status: Final result Specimen: Urine Updated: 06/27/18 0751 ? Urine Culture No growth (Less than 1,000 cfu/ml). ?? Legionella Urinary Antigen [[id number]] Collected: 06/26/18 1225 ?? Lab Status: Final [...] 95% Specificity 95%. ? Respiratory Panel PCR [[id number]] (Abnormal) Collected: 06/26/18 1140 ?? Lab Status: Final result Specimen: Nasopharyngeal Swab Updated: 06/26/18 1314 ? Resp Panel Source BUNDLE SORTER Swab ? Resp Panel PCR Positive ? Comment: Respiratory Panels are performed on the [employer], using multiplexed PCR nucleic acid detection. Negative [...] Mycoplasma pneumoniae Not Detected ?? Blood culture [[id number]] Collected: 06/26/18 1105 ?? Lab Status: Final [...] influenza A - Legionella antibody positive at [facility] however legionella urinary antigen and legionella respiratory culture negative at [facility] and so azithromycin was stopped (treated from [...] 24-48hrs pending PO intake Jesus Juárez DO [address] [place] [address] medicine 07/08/2018 Associated attestation - Augusto Camejo DO - 07/08/2018 4:39 PM EST [facility] Medicine Attending Attestation: Patient seen and examined [...] minimumof two midnights or is on the [facility] inpatient only procedure list (status C) due to: acute respiratory compromise and/or hypoxia requiring assessment every 4 hours and the ability to respond immediately to the patient's need Augusto Camejo DO Pager [phone] 07/08/2018 4:38 PM * Mona Ceballos RN [...] overnight. PLAN MOVING FORWARD: Continue to monitor PT/OT/MACHINE FORMER INDIVIDUALIZED FALL PREVENTION INTERVENTIONS: Patient-specific fall risk factors per assessment: [current deficits]: Generalized weakness, new environment, high fall risk Assistance [level of assistance required for transfers and ambulation]: 1 assist w/ walker Supervision [direct monitoring required during toileting and ADLs]: Hands on Surveillance [continuous indirect monitoring]: Shellieo, purposeful rounding Patient-specific fall prevention interventions for sensory deficits provided, if applicable: [X] No CPG GOAL OUTCOME EVALUATION: * Ирина Costello - 07/07/2018 7:09 PM EST Report received from [facility] Banuelos [facility] [place] ICU. Pt received. A/Ox4. Speech clear, hypophonic, MAEW in bed. On 2 lpm NC. Lungs CTA, dim. HR reg. Given orientation to room and call lee and made comfortable. * Fátima Dey RD - 07/07/2018 5:37 PM EST Nutrition [...] lb 15.2 oz). Admit Weight: 78.2 kg [place] Body Weight: 59.3 kg Usual Weight: Stated [...] 06/26/2018 TRIG 430 07/03/2018 Estimated nutrition needs: 2869-0754 calories and 105-120 gm protein Assessment: Pt [...] Dysphagia soft diet as ordered and per MACHINE FORMER recommendations Encourage p.o. intake. 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 At [facility], OT felt patient could manage an acute rehab program. Her option of facility covered through her insurance was [facility] and this was a distance she did not want to consider-she prefers [facility] because of location. Based on discussions with the multi-disciplinary healthcare team, the patient would benefit from SNF/SWING level of care at discharge. ?? I have met with the patient to discuss discharge planning needs. I have reviewed the [facility], Office of Care Management letter from the [employer] pertaining to rehab referrals. I have providedinformation [...] more than this). ?? Patient preference is [facility], but was in agreement to [facility] as back upl. ?? The patient requested referrals to: ?? 1. [facility] H$R ?? 2. [facility] ?? Expected date of discharge: uncertain at this time Note routed to [employer] Supervisor who will communicate referrals to facilities and provide any required information. Plan for discharge is CM will continue to follow and assist with discharge planning and coordination of care as indicated. * Kayli Paul RCP - 07/06/2018 9:09 AM EST AMV Protocol: Yes SBT Protocol: Yes Vent Settings: Servo I Ventilator Mode: PS/CPAP PEEP Set: 5 FiO2: 30 % PSV: 10 Ventilator Measurements: Resp: 27 Vt Spontaneous: 303 Ve: 8 SpO2: 90 % EtCO2: 35 mmHg Airway: 8.0 @ 22 cm at the Teeth. Skin Integrity: WDL MDI Inhaled Medications: Ipratroprium [place] Nebulized Medications: Albuterol & Ipratroprium Breath Sounds: [...] Diagnoses: ?? ARDS due to influenza A (H1-2009) ?? Acute hypoxemia respiratory failure ASSESSMENT, MANAGEMENT, [...] Skin Integrity: WDL MDI Inhaled Medications: Ipratroprium [place] & Atrovent 6 puff Q4 Breath Sounds: [...] WDL Inhaled Medications: MDI Inhaled Medications: Ipratroprium [place] Q6 Nebulized Medications: Albuterol & Ipratroprium Q6 [...] VENESSA Mascorro team via text page to [phone], regarding above. Yara Lawton is a 58 [...] 5.5 oz). Adm weight (kg): 78.2 kg [place] body weight: 59.3 kg (130 lb 11.7 oz) Adjusted ideal body weight: 65.6 kg (144 lb 9.2 oz) Nutrition needs estimated at: 0766-0485 calories and 105-120 grams protein daily. Current [...] glucose obligatory tissue. EDITH NERI Pager # [phone] * Amada Brian, RN - 07/04/2018 2:03 PM EST 1400-[facility] [phone] [id number] Pt has limited VNA services of : SK:40 visits a calendar year Aide :15 years a calendar year PT/OT combined: 26 visits a calendar year . This CM asked if pt had any inpt rehab coverage. [facility] will review and call this CM back re rehab coverage `1830 CM received VM from [facility] re Rehab/SNF coverage : 2 facilities are contracted- [facility] and [facility]. Covered inpt SNF per calendar year is 40 days. * Nir Leal MD - 07/04/2018 10:48 AM EST MICU STAFF PROGRESS NOTE Critical Care Medicine Author: Nir Leal MD Patient seen and examined on critical care rounds. Brief HPI: Yara aLwton is a 58 y.o. woman with ARDS from influenza pneumonia. Active Problem and Important Diagnoses: ?? ARDS due to influenza A (H1-2009) ?? Acute hypoxemia respiratory failure ASSESSMENT, MANAGEMENT, [...] Nir Leal MD, PhD 07/04/2018 * Valentino Longo, RT - 07/04/2018 8:35 AM EST AMV [...] WDL Inhaled Medications: MDI Inhaled Medications: Ipratroprium [place] Q4 Nebulized Medications: Albuterol & Ipratroprium Q4 [...] settings accordingly. RT Mac * Augusto Markham, SENIOR PROGRAM MANAGER - 07/04/2018 4:44 AM EST AMV Protocol: [...] ideal body weight, RASS -3. AUGUSTO MARKHAM, SENIOR PROGRAM MANAGER * Vipin Parker MD - 07/03/2018 10:57 AM EST Critical [...] Skin Integrity: WDL MDI Inhaled Medications: Ipratroprium [place] & Albuterol 6 puff Q4 Breath Sounds: [...] when appropriate. KOREY ESCAMILLA RCP * Vipin Parker MD - 07/02/2018 7:31 AM EST Critical [...] documentation on the unit. * Nir Silva RCP - 07/02/2018 5:22 AM EST AMV Protocol: [...] Skin Integrity: WDL MDI Inhaled Medications: Ipratroprium [place] Nebulized Medications: Albuterol & Ipratroprium Breath Sounds: [...] ?? MDI Inhaled Medications: Albuterol / Ipratroprium K[place]ow Breath Sounds: diminished Secretions: small thin clear/white [...] 6 oz). Adm weight (kg): 78.2 kg [place] body weight: 59.3 kg (130 lb 11.7 oz) Adjusted ideal body weight: 64.9 kg (142 lb 15.8 oz) Nutrition needs estimated at: 1512-9718 calories and 105-120 grams protein daily. Current [...] glucose obligatory tissue. EDITH NERI Pager # [phone] * Bonny Mckeon PT - 07/01/2018 1:42 PM EST Physical Therapy Note Patient remains inappropriate for PT due to now requiring proning on vent and on paralytics. Will follow. Bonny Mckeon PT Pager [phone] * Vipin Parker MD - 07/01/2018 7:38 AM EST Critical [...] Ab at the time of admission from [facility] has returned positive w/ a neg urinary [...] Skin Integrity: WDL MDI Inhaled Medications: Ipratroprium [place] Q4. Albuterol Q4 - 6 puffs Breath [...] / 74 / 29 / 2.6. P/F [id number]. Will continue to support on ventilator in [...] left upper lip MDI Inhaled Medications: Ipratroprium [place] Nebulized Medications: Albuterol & Ipratroprium Breath Sounds: diminished Secretions: small thin clear/white Assessment / Events / Plan of the Day: Ms. Lawton remained intubated and sedated on VC throughoutthe day. TV was adjusted to 6 mL/kg per ARDS protocol, RR increased to 18 to maintain equivalent minute ventilation. SpO2 remained mostly 90-92%, unable to wean O2. ABG on 60% 7. (P/F 103). Plan is to paralyze and prone after IJ placement, continue ARDS protocol. MIKAELA RHODES, SENIOR PROGRAM MANAGER * Bonny Mckeon, PT - 06/30/2018 2:24 PM EST Physical Therapy Note PT continues to monitor this patient to assess for readiness to initiate PT. She has been reintubated and required increased pressor dose, so PT withheld today. Will continue to follow. Bonny Mckeon, PT Pager [phone] * Esthela Cordero OT - 06/30/2018 1:47 PM EST Pt n/a for OT evaluation yet. Will cont to follow. Jazmine Cordero OT #[id number] * Vipin Parker MD - 06/30/2018 8:02 AM EST Critical Care Medicine Staff Progress Note 58 y.o. female with the following active issues: Acute hypoxemic respiratory failure ARDS Influenza A infection Sepsis Sedation-related hypotension 24 hr events/subjective: Low grade 38.1. Legionella Ab came back positive from [facility]. Increasing O2 needs and vent support. Requiring [...] paralyzing and proning. A Legionella Ab from [facility] has returned positive w/ a neg [...] and documentation on the unit. * April Parker, JENNIFER - 06/29/2018 9:12 PM EST AMV Protocol: [...] 12 to get SPO2 88% to 93% BUNDLE SORTER/RN aware. (0517) SPO2 87% PEEP increased to +14 ans FIO2 to 75% SPO2 increased to 90%.BUNDLE SORTER/RN aware. APRIL PARKER RRT * Korey Escamilla [...] when ready. KOREY ESCAMILLA RCP * Jesus Ramirez, RD - 06/29/2018 12:14 PM EST Clinical [...] able to reach the patient's provider, VENESSA de la garza in IDRs, regarding above. Yara Lawton is [...] 15.2 oz). Adm weight (kg): 78.2 kg [place] body weight: 59.3 kg (130 lb 11.7 oz) Adjusted ideal body weight: 64.4 kg (142 lb 0.3 oz) Nutrition needs estimated at: 7843-6704 calories and 105-120 grams protein daily. EDITH NERI Pager # [phone] * Vipin Parker MD - 06/29/2018 12:05 PM EST Critical [...] and documentation on the unit. * April Parker, SENIOR PROGRAM MANAGER - 06/29/2018 3:10 AM EST AMV Protocol: [...] WDL Assessment / Events / Plan: 06/28/18 -(193) FIO2 decreased to 70% and PEEP decreased [...] ARDS protocol. ANEL PHILLIPS RCP * Vipin Parker MD - 06/28/2018 11:21 AM EST Critical [...] up as appropriate. Louise Tamayo OT Pager [phone] Occupational Therapy Rehabilitation Department * Slime Ozuna [...] No complaint of SOB Given scheduled nebs ~0 desating to mid 80s rr mid 40s. [...] Flow Duoneb Q4 RT Shayan * Jazmine Gonzalez RT - 06/27/2018 7:34 PM EST Respiratory [...] this report, please contact the number below. SSMENT: Received patient on HFM 50L and 60%. 1415: RN increased FiO2 to 100% following a sustained desaturation with exertion. 1447: Placed patient on S/T: IPAP 12, EPAP 8 and FiO2 70% for an increased FiO2 requirement. 1824: Transitioned patient to HFM 50L and 70%. PLAN: Continue to support patient with HFT and NIV. Continue to provide inhaled medication. Jazmine Gonzalez, RT * Michelle Lea RN - 06/27/2018 1:40 PM EST 1330 Assumed care of patient at approx 1300. A+O, No complaints of pain, discomfort, or shortness of breath. Pt resting comfortably in bed. High flow @ 60 FiO2. 1830 Patient transferred to ICU N 37. A+O, no complaints of pain/discomfort. Transferred with RT onhigh flow. * Vipin Parker MD - 06/27/2018 9:37 AM EST Critical [...] no PO intake due to Bi-PAP use, green team notifed. Bladder scanned this am for 181. Will continue tomonitor. NSR-ST on tele w/ LBBB. * Salina Carrillo RCP - 06/27/2018 4:57 AM EST Respiratory [...] WDL: WDL Assessment: Received pt on BIPAP. [id number] Break off BIPAP. Placed pt on HFmask 60 liters 70%. Sats 96% RR 30-35. Pt stated breathing was Okay. 99 Agreed to go back on BIPAP. Plan: Continue to follow. SALINA CARRILLO RCP * Ernesto Arauz MD - 06/26/2018 2:31 PM EST MICU STAFF PROGRESS NOTE Critical Care Medicine Author: ERNESTO ARAUZ Patient seen and examined on admission to critical care. 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 Presented to local ER in [facility] and found to be hypoxemic with multifocal [...] Arauz MD 06/26/2018 2:31 PM * Gregory Ambriz RT - 06/26/2018 12:02 PM EST Respiratory [...] patient. ID: 58 y.o. Female presents to [facility] with shortness of breath. History of Present Illness: HPI 58 y/o female with pmhx anxiety, depression, tobacco abuse, LBBB, migraines who is admitted in transfer from [facility] with respiratory failure. The patient was in her usual state until 1 week prior to presentation when she developed progressive shortness of breath associated with chills and a cough productive of yellow coloured sputum. She initially presented to [facility] where she was noted to be hypoxic into the 70s with tachycardia andfevers. She was placed on a 100% non-rebreather with improvement in her saturations to the mid-90s.A Chest XR and CT Chest both revealed bilateral multifocal pneumonia and her Flu swab was positive for Influenza A. She was subsequently transferred to [facility] ICU for escalated care. Upon arrival to [facility] she was transitioned to Bipap due to [...] broad spectrum antibiotics upon initial presentation to [facility] (ceftriaxone, azithromycin, vancomycin) however these were quickly [...] Units Date/Time Lower Respiratory Culture Sputum Expectorated [[id number]] (Abnormal) Collected: 07/01/18 0405 Lab Status: Final result Specimen: Sputum Expectorated Updated: 07/03/18 6828 Lower Respiratory Culture -- [place] albicans Rare mixed bacterial morphotypes suggestive of normal upper respiratory germaine Gram Stain -- Few Neutrophils seen Few squamous epithelial cells seen Few Yeast seen Rare mixed bacterial morphotypes suggestive of normal upper respiratory germaine Legionella culture Sputum Expectorated [[id number]] Collected: 07/01/18 0341 Lab Status: Preliminary result Specimen: Sputum Expectorated Updated: 07/02/18 0842 Legionella Culture No Legionella isolated to date Blood culture [[id number]] Collected: 06/30/18 1300 Lab Status: Final result Specimen: Blood from Wrist, Right Updated: 07/05/18 1501 Blood Culture No growth at 5 days. Blood culture [[id number]] Collected: 06/30/18 1300 Lab Status: Final result Specimen: Blood from Wrist, Left Updated: 07/05/18 1501 Blood Culture No growth at 5 days. Urine culture Indwelling Catheter Urine [[id number]] Collected: 06/26/18 1226 Lab Status: Final result Specimen: Urine Updated: 06/27/18 0751 Urine Culture No growth (Less than 1,000 cfu/ml). Legionella Urinary Antigen [[id number]] Collected: 06/26/18 1225 Lab Status: Final result [...] Sensitivity: 95% Specificity 95%. Respiratory Panel PCR [[id number]] (Abnormal) Collected: 06/26/18 1140 Lab Status: Final result Specimen: Nasopharyngeal Swab Updated: 06/26/18 1314 Resp Panel Source BUNDLE SORTER Swab Resp Panel PCR Positive Comment: Respiratory Panels are performed on the [employer], using multiplexed PCR nucleic acid detection. Negative [...] Detected Mycoplasma pneumoniae Not Detected Blood culture [[id number]] Collected: 06/26/18 1105 Lab Status: Final result [...] influenza A - Legionella antibody positive at [facility] however legionella urinary antigen and legionella respiratory culture negative at [facility] and so azithromycin was stopped (treated from [...] ANN INGRAM MD 07/07/2018 * Wendy Alan, SUPERVISOR SECURITIES [employer]ULT - 06/26/2018 2:09 PM EST Critical Care Admission Note Yara Lawton is a 58 y.o. female with a PMH significant for Anxiety Disorder, Former Smoker, Depression, LBBB, and Migraines, who presents in transfer from [facility] with acute hypoxic respiratory failure secondary to influenza A. HPI: Ms. Lawton reports that she began feeling unwell on Wednesday of this past week, she developed a productive cough and was experiencing chills and rigors. She then developed progressive shortness of breath, which is what caused her to seek medical evaluation at [facility] this morning. On arrival there she was [...] on the NRBM was: 7.52/33/74 on 100%. Pertinent Laboratory Data: -Flu A positive -WBC: 10.5 -Creatinine: 1.05 -Sodium: 126 -AST/ALT: 38/18 -Troponin I: <0.02 [ULN 0.06] -Lactate: 1.7 -ProBNP: 710 -ABG at 0700: 7.52/33/74/27 on 100% NRBM Care at [facility]: -Vancomycin 1.5gms IV at 0730 -LR 1L IV -Azithromycin 500mg IV at 0730 -Ceftriaxone 2gms IV at 0730 -Tamiflu 75mg PO at 0800 Pertinent Imaging: -CT Chest without contrast: bilateral multifocal patchy infiltrates suggestive of multifocal pneumonia. -Chest XR: bilateral patchy infiltrates. She arrived to [facility] in no acute respiratory distress, but saturating [...] for Chest XR and CT Chest from [facility]. Chest XR pending here. Assessment: This is a 58 year old female with the above past medical history who presents in transfer from [facility] with hypoxic respiratory failure with a nasal [...] Self Code Status: FULL Disposition: ICU Wendy OchoaSTEPHANIE cui June 26, 2018 Critical Care Green Team (pager [phone]) Dr. Arauz is the attending of record [...] yes Patient location at time of insertion: ICU [address] [place] [address] Procedure Comments: Central Venous catheter, venous pressure transduced. Wyatt Juárez DO Associated attestation - Seb Le Jr., MD - 06/30/2018 8:57 PM EST ICU Attending I was present during this procedure. --Brina Le MD * Vipin Parker MD - 06/28/2018 3:37 PM ESTAssociated Order(s): [...] to the planned procedure. Hand Hygiene: The blockmason did perform hand hygiene prior to arterial [...] wave form. Procedure Comments: none * Vipin Parker MD - 06/28/2018 3:15 PM EST Intubation Procedure Note Reason for Intubation: ?? Hypoxemia. Procedure Diagnosis: hypoxic respiratory failure, ARDS Location of Procedure: ICU [place]. Risks and Benefits: The risks and benefits [...] of the cords with cricoid pressure. Dr. Parker was presentfor the entirety of the procedure. Dee Dee Schwab, DO 06/28/2018 I was present for this procedure. MNF documented in this encounter Miscellaneous Notes * Plan of Care - Chreelle Becerril RN - 07/13/2018 4:12 PM EST [...] who was transferred from an OSH, 06/26/18, 2/ Bilateral PNA and influenza A. She developed respiratory failure with hypoxia and required intubation. Pt was in ICU for a period of time issues with ARDS, dysphagia, and weakness. Extubated on 07/06/18; transferred from the ICU to [address] [place] [address] unit on 07/07/18; is working on weaning O2. Precautions/Restrictions: fall Precautions Comments: activity as tolerated. Tachycardic with activity. Assessment: Patient seen this late morning to early afternoon on [address] [place] [address] unit for functional mobility and d/c planning. [...] home with assist, home with home health, chcf facility(likely home with home PT and OT, pending progress; ? Rehab. ) RENE KEVIN, PT Pager: [phone] Inpatient Physical Therapy 07/13/18 6679 Rehab Evaluation Document Type therapy note (daily [...] the bed when PT arrived to the [place] unit, easily arose and agreeable to work [...] on 07/06/18; transferred from the ICU to [address] [place] [address] on 07/07/18; is working on weaning O2. Precautions/Restrictions fall Precautions Comments activity as tolerated. Tachycardic with activity. Treatment Number PT 5 Living Environment Living Environment Comment Lives alone in a one level home, 3 stairs with a rail to enter. Reports family lives 4 miles away and will check in. 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 Transfer Assessment/Treatment [place] (Sit-Stand Transfers) supervision required;conditional independence [place] (Stand-Sit Transfers) supervision required;conditional independence Wbf-Hbjlz-Twp Assistive Device (Transfers) rolling walker (and no device. ) [place] (Toilet Transfers) supervision required (toilet is low in [place] unit, no hand support) Comment (Transfers) occ sway when first standing, but no loss of balance, recommend supervision forsafety with transfers at this time. Gait Assessment/Treatment [place] (Gait) contact guard assist;supervision required Assistive Device [...] 3 Handrail Location (Stairs) left side (ascending) [place] (Stairs) contact guard assist Assistive Device (Stairs) straight cane Technique (Stairs) nlds-zo-mvsd (descending);arwi-cx-jumk (ascending) Motor Skills/Interventions Additional Documentation Therapeutic Exercise (Group) Therapeutic Exercise Comment (Therapeutic Exercise) IS use to [id number] with cues, deep breathing, reviewed AROM of BUEsand BLEs and repositioning. Educated to walk more daily with wait staff out of room with assistance. Also educated on pacing, and resting as needed. Bed Mobility Goal Bed Mobility Goal, Date Established 07/05/18 Bed Mobility Goal, Time to Achieve by discharge Bed Mobility Goal, Activity Type supine to sit/sit to supine Bed Mobility Goal, [place] Level independent Bed Mobility Goal, Outcome Achieved goal revised Gait Training Goal Gait Training Goal, Date Established 07/05/18 Gait Training Goal, Time to Achieve by discharge Gait Training Goal, [place] Level conditional independence Gait Training Goal, Assist [...] 30 days Transfer Training Goal, Activity Type puy-gx-higzn/xbxwl-wq-amf Transfer Train Goal, [place] Level conditional independence Transfer Training Goal, Assist [...] Discharge Disposition home with assist;home with home health;chcf facility (likely home with home PT and [...] (Interventions Implemented as Appropriate) 07/11/18 1139 07/12/18 7669 Plan of Care Review Progress progress toward [...] Appropriate) 07/12/181754 Individualization Patient Specific Preferences Likes emanitrena Patient Specific Goals Discharge Patient Specific Interventions Explained plan of care with pt Goal: Fall Prevention-Safe Patient Handling Outcome: Ongoing (Interventions Implemented as Appropriate) 07/12/1882407/12/18 175 Daily Care Interventions Self-Care Promotion -- independence [...] * Plan of Care - Shruti Gr, MACHINE FORMER - 07/11/2018 11:45 AM EST Speech-Language Pathology [...] for specific details, POC and goals. Recommendations MACHINE FORMER Diet Recommendation: thin liquids, regular solid Recommended Feeding/Eating Techniques: maintain upright posture during/after eating for 30 mins, small sips/bites Therapy Frequency: (no further skilled swallow services needed at this time) SHRUTI GR MA, [facility]-MACHINE FORMER Inpatient Speech Pathologist Pager# [phone] 07/11/18 1641 Rehab Evaluation Document Type therapy note (daily [...] as expected Speech Language Pathology Goal Types MACHINE FORMER Goal Types Dysphagia Goal (Group) Dysphagia Goal Dysphagia Goal, Date Established 07/07/18 Oral Nutritional Level Goal safely tolerates/maintains adequate oral nutrition;safely tolerates recommended diet texture;safely tolerates recommended liquid viscosity;no signs/symptoms of aspiration present Dysphagia Goal, Outcome goal met Clinical Impression MACHINE FORMER Swallowing Diagnosis (WFL) Rehab Potential/Prognosis, Swallowing good, to achieve stated therapy goals Therapy Frequency (no further skilled swallow services needed at this time) MACHINE FORMER Diet Recommendation thin liquids;regular solid Recommended Feeding/Eating [...] Discharge Disposition: (S) inpatient rehabilitation facility Pager: [phone] GHULAM Chaudhari 07/11/2018 Occupational Therapy Rehabilitation Department [...] Assessment/Treatment Impairments (Bed Mobility) strength decreased Scoot/Bridge [place] (Bed Mobility) (HOB elevated) Assistive Device (Bed Mobility) bed rails Comment (Bed Mobility) addtional time and increased effort Gsatbj-jj-Rtn [place] (Bed Mobility) supervision required Transfer Assessment/Treatment [place] (Sit-Stand Transfers) contact guard assist;supervision required [place] (Stand-Sit Transfers) supervision required;verbal cues required Lfh-Aqgpd-Ddz Assistive Device (Transfers) rolling walker Impairments (Transfers) balance impaired;strength decreased Comment (Transfers) cga when pt first stood, once standing pt steady with no LOB noted Grooming Assessment/Training Position (Grooming) standing [place] Level (Grooming) set up required;supervision required Impairments [...] week, consider home/[facility]) RODNEY COLE, PT Pager: [phone] Inpatient Physical Therapy 07/10/18 1031 Rehab Evaluation [...] Device (Bed Mobility) bed rails (hob 30) Jhmaeq-yt-Fts [place] (Bed Mobility) supervision required Fuz-kp-Qoytxe [place] (Bed Mobility) supervision required Impairments (Bed Mobility) strength decreased Comment (Bed Mobility) supine<>sit 2x. Transfer Assessment/Treatment [place] (Sit-Stand Transfers) supervision required [place] (Stand-Sit Transfers) supervision required Lif-Vyyrs-Zsh Assistive Device (Transfers) rolling walker Impairments (Transfers) balance impaired;strength decreased Comment (Transfers) bed to recliner. 5x sit<>stand test, 22 sec with arms crossed on chest. Gait Assessment/Treatment [place] (Gait) contact guard assist (assist with monitors [...] to sit/sit to supine Bed Mobility Goal, [place] Level supervision required;conditional independence Bed Mobility Goal, Date Goal Reviewed 07/10/18 Bed Mobility Goal, Outcome Achieved goal revised Gait Training Goal Gait Training Goal, Date Established 07/05/18 Gait Training Goal, Time to Achieve 30 days Gait Training Goal, [place] Level minimum assist (75% patient effort) Gait [...] 30 days Transfer Training Goal, Activity Type djx-yo-iyjsp/vkfhe-ic-vgf Transfer Train Goal, [place] Level conditional independence Transfer Training Goal, Assist [...] Outcome: Ongoing (Interventions Implemented as Appropriate) 07/09/18 3777 Plan of Care Review Progress progress toward [...] Handling Outcome: Ongoing (Interventions Implemented as Appropriate) 07/09/1884407/09/18 1000 Lubin Fall Risk History of Falling [...] Control Outcome: Ongoing (Interventions Implemented as Appropriate) 07/09/1845 Safety Interventions Isolation Precautions droplet precautions maintained Infection Prevention environmental surveillance performed;barrier precautions utilized;personal protective equipment utilized;rest/sleep promoted;single patient room provided Coping Strategies Supportive Measures active listening utilized;decision-making supported;problem solving facilitated;self-care encouraged;verbalization of feelings encouraged Goal: Interdisciplinary Rounds/Family Conf Outcome: Ongoing (Interventions Implemented as Appropriate) 07/09/187 Interdisciplinary Rounds/Family Conf Participants patient;nursing;physician Problem: Pneumonia (Adult) Goal: Signs and Symptoms of Listed Potential Problems Will be Absent, Minimized or Managed (Pneumonia) Signs and symptoms of listed potential problems will be absent, minimized or managed by discharge/transition of care (reference Pneumonia (Adult) CPG). Outcome: Ongoing (Interventions Implemented as Appropriate) 07/09/181656 Pneumonia Problems Assessed (Pneumonia) all Problems Present (Pneumonia) none Problem: Skin Integrity Impairment, Risk/Actual (Adult) Goal: Skin Integrity/Wound Healing Patient will demonstrate the desired outcomes by discharge/transition of care. Outcome: Ongoing (Interventions Implemented as Appropriate) 07/09/181656 Skin Integrity Impairment, Risk/Actual (Adult) Skin Integrity/Wound [...] overnight. PLAN MOVING FORWARD: Continue to monitor PT/OT/MACHINE FORMER Ween off o2 INDIVIDUALIZED FALL PREVENTION INTERVENTIONS: Patient-specific fall risk factors per assessment: [current deficits]: generalized weakness, new environment, high fall risk, oxygen tubing, assistive devices Assistance [level of assistance required for transfers and ambulation]: SBA with walker Supervision [direct monitoring required during toileting and ADLs]: Hands on Surveillance [continuous indirect monitoring]: Shellieo, purposeful rounding Patient-specific fall prevention interventions for [...] OUTCOME EVALUATION: * Plan of Care - NaiRodney Dorado, PT - 07/08/2018 12:28 PM EST Physical [...] I first entered room but left. Pt gianluca ana laura. Seen for functional training; transfers, gait, balance [...] inpatient rehabilitation facility(unless she had 21/12 support athome.) RODNEY COLE, PT Pager: [phone] Inpatient Physical Therapy 07/08/18 1201 Rehab Evaluation [...] to the commode with nursing. Transfer Assessment/Treatment [place] (Sit-Stand Transfers) minimum assist (75% patient effort) [place] (Stand-Sit Transfers) minimum assist (75% patient effort) Amg-Wwlxu-Trv Assistive Device (Transfers) rolling walker Impairments (Transfers) balance impaired;strength decreased Comment (Transfers) recliner. Cues for proper alignment and UE use. Gait Assessment/Treatment [place] (Gait) minimum assist (75% patient effort);1 person [...] fair balance Sitting Balance: Dynamic fair balance Myp-ac-Ofldx Balance poor balance Standing Balance: Static fair [...] to sit/sit to supine Bed Mobility Goal, [place] Level supervision required Bed Mobility Goal, Outcome Achieved goal ongoing Gait Training Goal Gait Training Goal, Date Established 07/05/18 Gait Training Goal, Time to Achieve 30 days Gait Training Goal, [place] Level minimum assist (75% patient effort) Gait Training Goal, Assist Device (Likely walker or LRAD) Gait Training Goal, Distance to Achieve 100' with VSS Gait Training Goal, Additional Goal Determine need to do stairs. Gait Training Goal, Outcome goal partially met Transfer Training Goal Transfer Training Goal, Date Established 07/05/18 Transfer Training Goal, Time to Achieve 30 days Transfer Training Goal, Activity Type qva-vs-ffyua/fsqei-nx-nzj Transfer Train Goal, [place] Level supervision required Transfer Training Goal, Assist [...] * Plan of Care - Shruti Gr, MACHINE FORMER - 07/08/2018 12:07 PM EST Speech-Language Pathology [...] for specific details, POC and goals. Recommendations MACHINE FORMER Diet Recommendation: thin liquids, semi-solid(dysphagia soft) Recommended Feeding/Eating Techniques: alternate between small bites and sips of food/liquid, maintain upright posture during/after eating for 30 mins, small sips/bites Therapy Frequency: 2-3 times/wk SHRUTI GR MA, [facility]-MACHINE FORMER Inpatient Speech Pathologist Pager# [phone] 07/08/18 1208 Rehab Evaluation Document Type therapy note (daily [...] as expected Speech Language Pathology Goal Types MACHINE FORMER Goal Types Dysphagia Goal (Group) Dysphagia Goal Dysphagia Goal, Date Established 07/07/18 Oral Nutritional Level Goal safely tolerates/maintains adequate oral nutrition;safely tolerates recommended diet texture;safely tolerates recommended liquid viscosity;no signs/symptoms of aspiration present Dysphagia Goal, Outcome goal ongoing Clinical Impression MACHINE FORMER Swallowing Diagnosis mild dysphagia;oral dysfunction Rehab Potential/Prognosis, Swallowing good, to achieve stated therapy goals Therapy Frequency 2-3 times/wk MACHINE FORMER Diet Recommendation thin liquids;semi-solid (dysphagia soft) Recommended Feeding/Eating Techniques alternate between small bites and sips of food/liquid;maintain upright posture during/after eating for 30 mins;small sips/bites Monitor for Signs of Aspiration cough;gurgly voice;throat clearing * Plan of Care - Shruti Gr MACHINE FORMER - 07/07/2018 5:08 PM EST Speech-Language Pathology [...] Thank you for your consult. ?? Recommendations MACHINE FORMER Diet Recommendation: thin liquids, semi-solid(dysphagia soft) Recommended Feeding/Eating Techniques: alternate between small bites and sips of food/liquid, maintain upright posture during/after eating for 30 mins, small sips/bites Standard aspiration precautions. STOP PO intake with s/s of aspiration Therapy Frequency: 2-3 times/wk SHRUTI GR MA, [facility]-MACHINE FORMER Inpatient Speech Pathologist Pager# [phone] 07/07/18 1533 Rehab Evaluation Document Type evaluation Total Evaluation [...] With patient Speech Language Pathology Goal Types MACHINE FORMER Goal Types Dysphagia Goal (Group) Dysphagia Goal Dysphagia Goal, Date Established 07/07/18 Oral Nutritional Level Goal safely tolerates/maintains adequate oral nutrition;safely tolerates recommended diet texture;safely tolerates recommended liquid viscosity;no signs/symptoms of aspiration present Clinical Impression MACHINE FORMER Swallowing Diagnosis mild dysphagia;moderate dysphagia;oral dysfunction Rehab Potential/Prognosis, Swallowing good, to achieve stated therapy goals Therapy Frequency 2-3 times/wk MACHINE FORMER Diet Recommendation thin liquids;semi-solid (dysphagia soft) Recommended [...] No stridor or wheezes today. Assessed by MACHINE FORMER this afternoon, advanced to dysphagia soft. Poor PO intake after diet advanced. Due to void, bladder scanned <400ml 2x. No urgeto void at this time. BUNDLE SORTER aware. Droplet precautions discontinued this afternoon. Sat [...] inpatient rehabilitation facility RODNEY COLE, PT Pager: [phone] Inpatient Physical Therapy 07/07/18 1300 Rehab Evaluation [...] (Group);Transfer Assessment/Treatment (Group) Bed Mobility Assessment/Treatment Scoot/Bridge [place] (Bed Mobility) moderate assist (50% patient effort);2 person assist required Gws-qe-Mzwysy [place] (Bed Mobility) minimum assist (75% patient effort) Impairments (Bed Mobility) balance impaired;strength decreased Comment (Bed Mobility) pt back to bed once regular floor bed placed in the room. LANGUAGE ASSISTANT was obtaining a call light for pt.. (Sat EOB without LOB. Laid down prior to PT ready) Transfer Assessment/Treatment [place] (Sit-Stand Transfers) minimum assist (75% patient effort);verbal cues required;2 person assist required [place] (Stand-Sit Transfers) verbal cues required;minimum assist (75% patient effort);2 person assist required Yub-Iznsy-Lgr Assistive Device (Transfers) gait belt;rolling walker Impairments (Transfers) balance impaired;strength decreased Comment (Transfers) stood for ~ 30 seconds while nursing placed an air cushion under her. Returned 1 hour later, when floor bed in room. Gait Assessment/Treatment [place] (Gait) minimum assist (75% patient effort);2 person [...] to sit/sit to supine Bed Mobility Goal, [place] Level supervision required Bed Mobility Goal, Outcome Achieved goal ongoing Gait Training Goal Gait Training Goal, Date Established 07/05/18 Gait Training Goal, Time to Achieve 30 days Gait Training Goal, [place] Level minimum assist (75% patient effort) Gait Training Goal, Assist Device (Likely walker or LRAD) Gait Training Goal, Distance to Achieve 100' with VSS Gait Training Goal, Additional Goal Determine need to do stairs. Gait Training Goal, Outcome goal ongoing Transfer Training Goal Transfer Training Goal, Date Established 07/05/18 Transfer Training Goal, Time to Achieve 30 days Transfer Training Goal, Activity Type vqh-ji-hfuit/lvmsi-yq-zuq Transfer Train Goal, [place] Level minimum assist (75% patient effort) Transfer [...] Note Situation: Asked to see Yara Lawton for follow up erythema to bridge of [...] any questions or concerns Discussed plan with: RN: Chloe Please contact Elaine Steward RN on pager [phone] or the wound care team at [phone] or pager [phone] skin and wound care concerns or questions. [...] EVALUATION: * Plan of Care - Jesus Stout RN - 07/06/2018 5:12 AM EST Problem: [...] the ventilator. * Plan of Care - Rodney Cole, PT - 07/05/2018 10:37 AM EST Physical [...] peep 8. ) Precautions Comments: R radial line, aquiles YANES. 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 Hopefully will progress well, barring no further [...] inpt rehab ) RODNEY COLE, PT Pager: [phone] Inpatient Physical Therapy 2017 PT Evaluation Code [...] 8. ) Precautions Comments R radial line, aquiles YANES. 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 Rest of UEs 2-3/5. Pt could SLR each LE~ 2 off the bed. B hips 2-2+/5. Quads 4/5. B ankle DF 2/5 and PF 3/5. Mobility Assessment/Training Additional Documentation Bed Mobility Assessment/Treatment (Group);Transfer Assessment/Treatment (Group) Bed Mobility Assessment/Treatment Assistive Device (Bed Mobility) bed rails;draw sheet (HOB and chair modes) Scoot/Bridge [place] (Bed Mobility) maximum assist (25% patient effort);2 person assist required (shortened foot board, pt pushed on) Impairments (Bed Mobility) balance impaired;flexibility decreased;motor control impaired;postural control impaired;strength decreased Comment (Bed Mobility) Pt scooted up in bed, then placed in full chair mode, in bed, footboard off. Transfer Assessment/Treatment [place] (Sit-Stand Transfers) maximum assist (25% patient effort);2 person assist required;verbal cues required [place] (Stand-Sit Transfers) maximum assist (25% patient effort);2 person assist required Ygc-Yivxa-Iwi Assistive Device (Transfers) gait belt (Knees blocked) [...] poor balance Sitting Balance: Dynamic poor balance Lgt-ef-Mokwd Balance poor balance Standing Balance: Static poor [...] to sit/sit to supine Bed Mobility Goal, [place] Level supervision required Bed Mobility Goal, Outcome Achieved goal ongoing Gait Training Goal Gait Training Goal, Date Established 07/05/18 Gait Training Goal, Time to Achieve 30 days Gait Training Goal, [place] Level minimum assist (75% patient effort) Gait Training Goal, Assist Device (Likely walker or LRAD) Gait Training Goal, Distance to Achieve 100' with VSS Gait Training Goal, Additional Goal Determine need to do stairs. Gait Training Goal, Outcome goal ongoing Transfer Training Goal Transfer Training Goal, Date Established 07/05/18 Transfer Training Goal, Time to Achieve 30 days Transfer Training Goal, Activity Type dzo-cn-fpedm/neykf-ms-ihz Transfer Train Goal, [place] Level minimum assist (75% patient effort) Transfer [...] when possible Encourage participation in her care [place] regulalry Anticipated Discharge Disposition: inpatient rehabilitation facility(TBD pending progress) Pager: [phone] JOSE F SAMANO OT 07/05/2018 Occupational Therapy [...] who was transferred from an OSH, 06/26/18, / Bilateral PNA and influenzaA. 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 Self-Care Dominant [...] bilateral shoulder flex: 3/5, elbow flex/ext: 3/5, tobacco sizer:3+/5, weak functionally 2/2 poor attention; LE's grossly 3-4/5 Bed Mobility Assessment/Treatment Impairments (Bed Mobility) balance impaired;strength decreased Scoot/Bridge [place] (Bed Mobility) maximum assist (25% patient effort);2 person assist required Assistive Device (Bed Mobility) bed rails;draw sheet Comment (Bed Mobility) progressed to the full chair position of the bed w/ feet on the floor; worked on pulling forward and attempting unsupported sitting; pillows placed behind back (decreased sustained unsupported sitting0 Transfer Assessment/Treatment [place] (Sit-Stand Transfers) maximum assist (25% patient effort);2 person assist required [place] (Stand-Sit Transfers) maximum assist (25% patient effort);2 person assist required Owb-Mexja-Hgr Assistive Device (Transfers) gait belt (blocking knees, RN assist for ETT) Impairments (Transfers) balance impaired;motor control impaired;postural control impaired;strength decreased Comment (Transfers) stood for ~1 min from full chair position of the bed w/ 2 assist Lower Body Dressing Assessment/Training Position (LB Dressing) supported sitting [place] Level (LB Dressing) maximum assist (25% patient effort) Impairments (LB Dressing) postural control impaired;coordination impaired;balance impaired;strengthdecreased;flexibility decreased Comment (LB Dressing) once pulled over foot, max A to pull up (able to tobacco sizer w/ LUE 1 /10 times, multiple tobacco sizer slips), poor coordination and control Grooming Assessment/Training Position (Grooming) supported sitting [place] Level (Grooming) maximum assist (25% patient effort) Impairments (Grooming) coordination impaired;flexibility decreased;motor control impaired;strength decreased Comment (Grooming) max A to sustain tobacco sizer on wash cloth and wash face Plan [...] EVALUATION NOTE: OUTCOME SUMMARY: PT on PSV 12/8 with FiO2 35% and tolerating well with [...] Outcome: Ongoing (Interventions Implemented as Appropriate) 06/28/18 0807/01/18179907/02/181999 Lubin Fall Risk History of Falling -- [...] -- Assistive Device Utilized oxygen -- -- 07/03/18 06 Lubin Fall Risk History of Falling -- [...] Control Outcome: Ongoing (Interventions Implemented as Appropriate) 07/02/18 0807/02/18199907/03/18 06 Safety Interventions Isolation Precautions -- -- droplet [...] (CPG) Outcome: Ongoing (Interventions Implemented as Appropriate) 06/29/18455 Skin Integrity Impairment, Risk/Actual Skin Integrity Impairment, [...] Outcome: Ongoing (Interventions Implemented as Appropriate) 06/29/1845507/02/18 08 Plan of Care Review Progress improving -- [...] nurses station, closeobservation Surveillance [continuous indirect monitoring]: [facility] * Plan of Care - Raisa [...] lowest position. Surveillance [continuous indirect monitoring]: [place]. Patient-specific fall prevention interventions for sensory deficits [...] Device Utilized oxygen -- -- 07/02/18 0400 Lubin Fall Risk History of Falling -- [...] Outcome: Ongoing (Interventions Implemented as Appropriate) 07/01/18199907/02/18 040 Safety Interventions Isolation Precautions -- droplet precautions [...] Ongoing (Interventions Implemented as Appropriate) 06/28/18 0800 06/29/18 2000 06/30/18 1200 Lubin Fall Risk History of Falling [...] -- Assistive Device Utilized oxygen -- -- 07/01/18 0400 Lubin Fall Risk History of Falling -- [...] Control Outcome: Ongoing (Interventions Implemented as Appropriate) 06/30/18199907/01/18 0400 Safety Interventions Isolation Precautions -- droplet [...] Review Outcome: Ongoing (Interventions Implemented as Appropriate) 06/29/186 06/29/18 08 Plan of Care Review Progress improving -- [...] Overview Goal: Plan of Care Review 06/28/18199906/29/18 0456 Plan of Care Review Progress -- improving [...] EVALUATION: Goal: Fall Prevention-Safe Patient Handling 06/28/18 0800 06/28/18199906/29/18 0200 Lubin Fall Risk History of Falling [...] -- Assistive Device Utilized oxygen -- -- 06/29/18 0430 Lubin Fall Risk History of Falling -- Secondary Diagnosis -- Ambulatory Aids -- Intravenous Therapy/Heparin/Saline Lock -- Gait/Transferring -- Mental Status -- Score -- OTHER Lubin Fall Risk -- Restraint Interventions Safety Promotion/Fall Prevention safety round/check completed Positioning Body Position -- Activity Activity Type activity adjusted per tolerance Activity Assistance Provided assistance, 2 people Assistive Device Utilized -- Goal: Infection Control 06/28/18199906/29/18 0430 Safety Interventions Isolation Precautions -- droplet precautions [...] Review Outcome: Ongoing (Interventions Implemented as Appropriate) 06/28/18 1933 Coping/Psychosocial Plan Of Care Reviewed With patient [...] Please contact Elaine Steward RN on pager [phone] or the wound care team at [phone] or pager [phone] skin and wound care concerns or questions. * Plan of Care - Sruthi Hanna PT - 06/28/2018 10:34 AM EST PHYSICAL THERAPY CONTACT NOTE: Order received and chart reviewed. Pt with high FiO2 requirement at this time. Will follow up with formal PT evaluation when supplemental O2 needs decrease below 65% FiO2. Please page this automatic typewriter inspector with questions. Sruthi Hanna PT, DPT Pager #[phone] * Plan of Care - Neema Soriano [...] Within the Past 30 Days: Transfer from [facility] ICU to [facility] (critical care team) Anticipated Length Of [...] N/A Primary Care Provider: Catalina Barroso, STEPHANIE [phone] Patient/Caregiver Goals of Treatment: Home no services at this time Potential Needs for Transition of Care: Transportation: Family Anticipated Barriers to Discharge/Special Considerations: none Assessment/Plan: 58 y/o female - admitted from [facility] ICU - Acute hypoxic respiratory failure secondary to influenza A. No services noted at this time. A member of the Care Management team will continue to monitor progress, follow for continuity of care and assist with transition of care planningJc Wells RN (Jonas) Pager [phone] documented in this encounter Plan of Treatment Upcoming Encounters Date Type Department Care Team (Late st Contact Info) Description 06/12/2024 11:15 AM EST [facility] [place] [place] [address] [facility] [place] [address] Scheduled Referrals Name Type Priority Associated Diagnoses [...] RBC, Urine 3 0 - 4 /HPF [facility] WBC, Urine 4 0 - 5 /HPF [facility] Bacteria, Urine Rare(A) None /HPF [facility] Squamous Epithelial Cells Raw Data, Urine 13(H) <=4 /HPF [facility] Hyaline Casts, Urine 3(H) 0 - 2 /LPF [facility] Calcium Oxalate Crystal, Urine Moderate(A ) None /HPF [facility] Urine specimen obtained by clean catch procedure (specimen) 07/12/2018 11:51 AM EST 07/12/2018 12:17 PM EST Narrative Resulting Agency Comment Spec In Lab Carol Ann Ingram MD URINE ORDERABLES Performing Organization Address [facility]/ZIP Co de Phone Number [facility] [place] [phone] * Urine Hold (07/12/2018 11:51 AM EST) Hold, Urine Sample in lab. [facility] Urine specimen (specimen) Urine / Unknown 07/12/2018 11:51 AM EST 07/12/2018 12:17 PM EST Carol Ann Ingram MD URINE ORDERABLES Performing Organization Address [facility] Co de Phone Number [facility] [place] [address] * (ABNORMAL) Urinalysis with reflex Culture (07/12/2018 11:51 AM EST) Glucose, Urine Dipstick Negative Negative mg/dL [facility] Protein, Urine Dipstick Negative Negative mg/dL [facility] Bilirubin, Urine Dipstick Negative Negative mg/dL [facility] Comment: Clinical correlation required for positive Urine Bilirubin results as false positive may occur with some drugs and drug related products. If a false positive is suspected a serum total bilirubin should be considered if clinically indicated. Urobilinogen, Urine Dipstick Normal Normal mg/dL [facility] pH, Urn (dipstick) 5.0 5.0 - 8.0 [facility] Blood, Urine Dipstick Negative Negative mg/dL [facility] Ketone, Urine Dipstick 5(A) Negative mg/dL [facility] Nitrite, Urine Dipstick Negative Negative [facility] Leukocytes, Urine Dipstick Trace(A) Negative [facility] Appearance, Urine Dipstick Clear Clear [facility] Specific Sesser Urine Automated 1.024 1.002 - 1.030 [facility] Color, Urine Dipstick Yellow Yellow [facility] Reflex to Culture No [facility] Urine specimen obtained by clean catch procedure (specimen) 07/12/2018 11:51 AM EST 07/12/2018 12:17 PM EST Narrative Resulting Agency Comment Spec In Lab Carol Ann Ingram MD URINE ORDERABLES [facility] [place] [address] * (ABNORMAL) Basic Metabolic Panel (non-fasting) (07/10/2018 2:22 AM EST) Glucose 89 65 - 199 mg/dL [facility] Comment:Diabetes: >=200 mg/d L plus symptoms Blood Urea Nitrogen 18 8 - 18 mg/dL [facility] Creatinine 0.54(L) 0.70 - 1.20 mg/dL [facility] Sodium 138 135 - 145 mmol/L [facility] Potassium 3.7 3.5 - 5.0 mmol/L [facility] Comment: Please note: ??Patients with WBC >100,000 may have falsely elevated Potassium levels. ??For accurate Potassium quantification in these patients send serum separator tube (gold top) for subsequent determinations. ??Contact the Clinical Chemistry Laboratory if there are any questions. Chloride 102 98 - 107 mmol/L [facility] Carbon Dioxide 26 22 - 31 mmol/L [facility] Anion Gap 10 5 - 15 mmol/L [facility] [place] Calcium 8.6 8.5 - 10.5 mg/dL [facility] Est Glomerular Filtration Rate 103 >=60 mL/min/1. 73 m?? [facility] Comment: The eGFR was calculated using the CKD-EPI equation. As with all creatinine based estimates of kidney function, eGFR values calculated with the CKD-EPI equation are not accurate in patients with acute kidney failure, extremes of body mass or the acutely ill. [email or web address] eGFR 119 >=60 mL/min/1. 73 m?? [facility] Comment: The eGFR was calculated using the CKD-EPI equation. As with all creatinine based estimates of kidney function, eGFR values calculated with the CKD-EPI equation are not accurate in patients with acute kidney failure, extremes of body mass or the acutely ill. [email or web address] Blood specimen (specimen) 07/10/2018 2:22 AM EST 07/10/2018 2:44 AM EST Narrative Resulting Agency Comment Spec In Lab Korey Hernandez MD CHEMISTRY ORDERABLE S [facility] [place] [address] * (ABNORMAL) Differential, Automated (07/08/2018 8:19 AM EST) Neutrophil % 74.9 % [facility] Neutrophil Absolute 6.44(H) 1.70 - 6.10 x10(3)/mc L [facility] Lymph % 17.2 % [facility] Lymphocytes Abs 1.5 0.9 - 3.2 x10(3)/mc L [facility] Monocyte % 6.5 % [facility] Monocyte Abs 0.6 0.3 - 0.9 x10(3)/[facility] Eos % 0.6 % [facility] Eosinophils Abs 0.0 0.0 - 0.4 x10(3)/[facility] Basophil % 0.5 % [facility] Baso Absolute 0.0 0.0 - 0.1 x10(3)/[facility] Immature Gran % 0.30 % [facility] Comment: Immature granulocytes(IG's)percentage and absolute count will include metamyelocytes, myelocytes, and promyelocytes. Blood smears from CBCs yielding IG's will be scanned manually for concordance. If this scan disagrees with the automated IG or if promyelocytes are noted, a manual differential will be performed. Immature Gran Absolute 0.03 0.00 - 0.04 x10(3)/[facility] Blood specimen (specimen) 07/08/2018 8:19 AM EST 07/08/2018 8:22 AM EST Narrative Resulting Agency Comment Spec In Lab Carol Ann Ingram MD HEMATOLOGY ORDER MATTI [facility] [place] [address] * (ABNORMAL) Hemogram (07/08/2018 8:19 AM EST) White Blood Cell 8.6 4.0 - 9.5 x10(3)/[facility] Red Blood Cell 3.40(L) 4.00 - 5.21 x10(6)/[facility] Hemoglobin 9.8(L) 11.7 - 15.5 gm/dL [facility] Hematocrit 30.6(L) 35.7 - 45.8 % [facility] Mean Cell Volume 90.0 82.6 - 94.4 fL [facility] Mean Cell Hemoglobin 28.8 27.1 - 32.0 pg [facility] Mean Cell Hemoglobin Concentration 32.0 31.7 - 35.0 gm/dL [facility] Platelet 376(H) 145 - 357 x10(3)/mc L [facility] RDW Standard Deviation 45.9 37.0 - 46.0 fL [facility] RDW coefficient of variation 14.0 11.5 - 14.1 % [facility] Mean Platelet Volume 9.2 7.6 - 12.9 fL [facility] NRBC% auto 0.0 % [facility] NRBC Absolute 0.000 0.000 - 0.000 x10(3)/mc L [facility] Blood specimen (specimen) 07/08/2018 8:19 AM EST 07/08/2018 8:22 AM EST Narrative Resulting Agency Comment Spec In Lab Carol Ann Ingram MD HEMATOLOGY ORDER MATTI [facility] [place] [phone] * (ABNORMAL) Basic Metabolic Panel (non-fasting) (07/08/2018 8:19 AM EST) Glucose 102 65 - 199 mg/dL [facility] Comment:Diabetes: >=200 mg/d L plus symptoms Blood Urea Nitrogen 21(H) 8 - 18 mg/dL [facility] Creatinine 0.51(L) 0.70 - 1.20 mg/dL [facility] Sodium 144 135 - 145 mmol/L [facility] Potassium 3.7 3.5 - 5.0 mmol/L [facility] Comment: Please note: ??Patients with WBC >100,000 may have falsely elevated Potassium levels. ??For accurate Potassium quantification in these patients send serum separator tube (gold top) for subsequent determinations. ??Contact the Clinical Chemistry Laboratory if there are any questions. Chloride 103 98 - 107 mmol/L [facility] Carbon Dioxide 28 22 - 31 mmol/L [facility] Anion Gap 13 5 - 15 mmol/L [facility] Calcium 8.8 8.5 - 10.5 mg/dL [facility] Est Glomerular Filtration Rate 105 >=60 mL/min/1. 73 m?? [facility] Comment: The eGFR was calculated using the CKD-EPI equation. As with all creatinine based estimates of kidney function, eGFR values calculated with the CKD-EPI equation are not accurate in patients with acute kidney failure, extremes of body mass or the acutely ill. [email or web address] eGFR 121 >=60 mL/min/1. 73 m?? [facility] Comment: The eGFR was calculated using the CKD-EPI equation. As with all creatinine based estimates of kidney function, eGFR values calculated with the CKD-EPI equation are not accurate in patients with acute kidney failure, extremes of body mass or the acutely ill. [email or web address] Blood specimen (specimen) 07/08/2018 8:19 AM EST 07/08/2018 8:22 AM EST Narrative Resulting Agency Comment Spec In Lab Carol Ann Ingram MD CHEMISTRY ORDERA BLES [facility] [place] [address] * (ABNORMAL) Differential, Automated (07/07/2018 1:37 AM EST) Neutrophil % 76.8 % [facility] Neutrophil Absolute 10.45(H) 1.70 - 6.10 x10(3)/mc L [facility] Lymph % 15.1 % [facility] Lymphocytes Abs 2.1 0.9 - 3.2 x10(3)/mc L [facility] Monocyte % 7.2 % [facility] Monocyte Abs 1.0(H) 0.3 - 0.9 x10(3)/mc L [facility] Eos % 0.1 % [facility] Eosinophils Abs 0.0 0.0 - 0.4 x10(3)/[facility] Basophil % 0.4 % [facility] Baso Absolute 0.0 0.0 - 0.1 x10(3)/[facility] Immature Gran % 0.40 % [facility] Comment: Immature granulocytes(IG's)percentage and absolute count will include metamyelocytes, myelocytes, and promyelocytes. Blood smears from CBCs yielding IG's will be scanned manually for concordance. If this scan disagrees with the automated IG or if promyelocytes are noted, a manual differential will be performed. Immature Gran Absolute 0.06(H) 0.00 - 0.04 x10(3)/[facility] Blood specimen (specimen) 07/07/2018 1:37 AM EST 07/07/2018 2:15 AM EST Narrative Resulting Agency Comment Spec In Lab Wendy Kasandra Alan [employer] HEMATOLOGY ORDERAB LES [facility] [place] [address] * (ABNORMAL) Hemogram (07/07/2018 1:37 AM EST) White Blood Cell 13.6(H) 4.0 - 9.5 x10(3)/[facility] Red Blood Cell 3.11(L) 4.00 - 5.21 x10(6)/[facility] Hemoglobin 9.0(L) 11.7 - 15.5 gm/dL [facility] Hematocrit 28.4(L) 35.7 - 45.8 % [facility] Mean Cell Volume 91.3 82.6 - 94.4 fL [facility] Mean Cell Hemoglobin 28.9 27.1 - 32.0 pg [facility] Mean Cell Hemoglobin Concentration 31.7 31.7 - 35.0 gm/dL [facility] Platelet 410(H) 145 - 357 x10(3)/mc L [facility] RDW Standard Deviation 47.4(H) 37.0 - 46.0 fL [facility] RDW coefficient of variation 14.2(H) 11.5 - 14.1 % [facility] Mean Platelet Volume 9.8 7.6 - 12.9 fL [facility] NRBC% auto 0.0 % [facility] NRBC Absolute 0.000 0.000 - 0.000 x10(3)/mc L [facility] Blood specimen (specimen) 07/07/2018 1:37 AM EST 07/07/2018 2:15 AM EST Narrative Resulting Agency Comment Spec In Lab Wendy Slaughter Alan [employer] HEMATOLOGY ORDERAB LES Performing Organization Address [facility] Phone Number [facility] [place] [address] * Phosphorus (07/07/2018 1:37 AM EST) Phosphorus 3.8 2.5 - 4.5 mg/dL [facility] Blood specimen (specimen) 07/07/2018 1:37 AM EST 07/07/2018 2:15 AM EST Narrative Resulting Agency Comment Spec In Lab Wendy Slaughter Dayanna [employer] CHEMISTRY ORDERABL ES Performing Organization Address [facility] de Phone Number [facility] [place] [address] * Magnesium (07/07/2018 1:37 AM EST) Magnesium 0.93 0.69 - 1.07 mmol/L [facility] Blood specimen (specimen) 07/07/2018 1:37 AM EST 07/07/2018 2:15 AM EST Narrative Resulting Agency Comment Spec In Lab Wendy Slaughter Alan [employer] CHEMISTRY ORDERABL ES Performing Organization Address [facility] de Phone Number [facility] [place] [address] * (ABNORMAL) Basic Metabolic Panel (non-fasting) (07/07/2018 1:37 AM EST) Glucose 100 65 - 199 mg/dL [facility] Comment:Diabetes: >=200 mg/d L plus symptoms Blood Urea Nitrogen 19(H) 8 - 18 mg/dL [facility] Creatinine 0.47(L) 0.70 - 1.20 mg/dL [facility] Sodium 142 135 - 145 mmol/L [facility] Potassium 3.6 3.5 - 5.0 mmol/L [facility] Comment: Please note: ??Patients with WBC >100,000 may have falsely elevated Potassium levels. ??For accurate Potassium quantification in these patients send serum separator tube (gold top) for subsequent determinations. ??Contact the Clinical Chemistry Laboratory if there are any questions. Chloride 100 98 - 107 mmol/L [facility] Carbon Dioxide 30 22 - 31 mmol/L [facility] Anion Gap 12 5 - 15 mmol/L [facility] Calcium 8.6 8.5 - 10.5 mg/dL [facility] Est Glomerular Filtration Rate 107 >=60 mL/min/1. 73 m?? [facility] Comment: The eGFR was calculated using the CKD-EPI equation. As with all creatinine based estimates of kidney function, eGFR values calculated with the CKD-EPI equation are not accurate in patients with acute kidney failure, extremes of body mass or the acutely ill. [email or web address] eGFR 124 >=60 mL/min/1. 73 m?? [facility] Comment: The eGFR was calculated using the CKD-EPI equation. As with all creatinine based estimates of kidney function, eGFR values calculated with the CKD-EPI equation are not accurate in patients with acute kidney failure, extremes of body mass or the acutely ill. [email or web address] Blood specimen (specimen) 07/07/2018 1:37 AM EST 07/07/2018 2:15 AM EST Narrative Resulting Agency Comment Spec In Lab Wendy Slaughter Alan STEPHANIE CHEMISTRY ORDERABL ES Performing Organization Address [facility] Co de Phone Number [facility] [place] [address] * EKG 12 Lead (07/06/2018 8:08 PM EST) Ventricular rate 107 BPM MUSE SYSTEM Atrial Rate 107 BPM MUSE SYSTEM P-R Interval 154 ms MUSE SYSTEM QRS Duration 138 ms MUSE SYSTEM Q-T Interval 354 ms MUSE SYSTEM QTC Calculated (Bezet) 472 ms MUSE SYSTEM Calculated P Keeler 50 degrees MUSE SYSTEM Calculated R Keeler 0 degrees MUSE SYSTEM Calculated T Keeler 127 degrees MUSE SYSTEM INTERPRETATION Sinus tachycardia Left bundle branch block Abnormal ECG When compared with ECG of 26-JUN-2018 11:25, No significant change was found Confirmed by Sharif MAY MD, Chidi ([id number]) on 07/07/2018 7:51:27 AM MUSE SYSTEM 07/06/2018 8:08 PM EST 07/07/2018 7:51 AM EST Nir Leal MD ECG ORDERABLES Performing Organization Address [facility] Co de Phone Number MUSE SYSTEM * (ABNORMAL) Differential, Automated (07/06/2018 2:55 AM EST) Neutrophil % 76.9 % [facility] Neutrophil Absolute 8.77(H) 1.70 - 6.10 x10(3)/mc L [facility] Lymph % 14.5 % [facility] Lymphocytes Abs 1.6 0.9 - 3.2 x10(3)/mc L [facility] Monocyte % 6.9 % [facility] Monocyte Abs 0.8 0.3 - 0.9 x10(3)/mc L [facility] Eos % 0.4 % [facility] Eosinophils Abs 0.0 0.0 - 0.4 x10(3)/mc L [facility] Basophil % 0.4 % [facility] Baso Absolute 0.0 0.0 - 0.1 x10(3)/ L [facility] Immature Gran % 0.90 % [facility] Comment: Immature granulocytes(IG's)percentage and absolute count will include metamyelocytes, myelocytes, and promyelocytes. Blood smears from CBCs yielding IG's will be scanned manually for concordance. If this scan disagrees with the automated IG or if promyelocytes are noted, a manual differential will be performed. Immature Gran Absolute 0.10(H) 0.00 - 0.04 x10(3)/ L [facility] Blood specimen (specimen) 07/06/2018 2:55 AM EST 07/06/2018 3:02 AM EST Narrative Resulting Agency Comment Spec In Lab Wendy Alan APRN HEMATOLOGY ORDERAB LES Performing Organization Address City/State/[facility] Co de Phone Number [facility] [place] [address] * (ABNORMAL) Hemogram (07/06/2018 2:55 AM EST) White Blood Cell 11.4(H) 4.0 - 9.5 x10(3)/[facility] Red Blood Cell 2.93(L) 4.00 - 5.21 x10(6)/ L [facility] Hemoglobin 8.4(L) 11.7 - 15.5 gm/dL [facility] Hematocrit 26.6(L) 35.7 - 45.8 % [facility] Mean Cell Volume 90.8 82.6 - 94.4 fL [facility] Mean Cell Hemoglobin 28.7 27.1 - 32.0 pg [facility] Mean Cell Hemoglobin Concentration 31.6(L) 31.7 - 35.0 gm/dL [facility] Platelet 296 145 - 357 x10(3)/[facility] RDW Standard Deviation 45.8 37.0 - 46.0 fL [facility] RDW coefficient of variation 13.8 11.5 - 14.1 % [facility] Mean Platelet Volume 9.2 7.6 - 12.9 fL [facility] NRBC% auto 0.0 % [facility] NRBC Absolute 0.000 0.000 - 0.000 x10(3)/mc L [facility] Blood specimen (specimen) 07/06/2018 2:55 AM EST 07/06/2018 3:02 AM EST Narrative Resulting Agency Comment Spec In Lab Wendy L Dayanna [employer] HEMATOLOGY ORDERAB LES Performing Organization Address [facility] Phone Number [facility] [place] [address] * Phosphorus (07/06/2018 2:55 AM EST) Phosphorus 3.9 2.5 - 4.5 mg/dL [facility] Blood specimen (specimen) 07/06/2018 2:55 AM EST 07/06/2018 3:01 AM EST Narrative Resulting Agency Comment Spec In Lab Wendy Slaughter Dayanna [employer] CHEMISTRY ORDERABL ES Performing Organization Address [facility] de Phone Number [facility] [place] [address] * Magnesium (07/06/2018 2:55 AM EST) Magnesium 0.87 0.69 - 1.07 mmol/L [facility] Blood specimen (specimen) 07/06/2018 2:55 AM EST 07/06/2018 3:01 AM EST Narrative Resulting Agency Comment Spec In Lab Wendy Slaughter Alan [employer] CHEMISTRY ORDERABL ES Performing Organization Address [facility] Phone Number [facility] [place] [address] * (ABNORMAL) Basic Metabolic Panel (non-fasting) (07/06/2018 2:55 AM EST) Glucose 120 65 - 199 mg/dL [facility] Comment:Diabetes: >=200 mg/d L plus symptoms Blood Urea Nitrogen 22(H) 8 - 18 mg/dL [facility] Creatinine 0.49(L) 0.70 - 1.20 mg/dL [facility] Sodium 141 135 - 145 mmol/L [facility] Potassium 4.0 3.5 - 5.0 mmol/L [facility] Comment: Please note: ??Patients with WBC >100,000 may have falsely elevated Potassium levels. ??For accurate Potassium quantification in these patients send serum separator tube (gold top) for subsequent determinations. ??Contact the Clinical Chemistry Laboratory if there are any questions. Chloride 99 98 - 107 mmol/L [facility] Carbon Dioxide 32(H) 22 - 31 mmol/L [facility] Anion Gap 10 5 - 15 mmol/L [facility] Calcium 8.8 8.5 - 10.5 mg/dL [facility] Est Glomerular Filtration Rate 106 >=60 mL/min/1. 73 m?? [facility] Comment: The eGFR was calculated using the CKD-EPI equation. As with all creatinine based estimates of kidney function, eGFR values calculated with the CKD-EPI equation are not accurate in patients with acute kidney failure, extremes of body mass or the acutely ill. [email or web address] eGFR 123 >=60 mL/min/1. 73 m?? [facility] Comment: The eGFR was calculated using the CKD-EPI equation. As with all creatinine based estimates of kidney function, eGFR values calculated with the CKD-EPI equation are not accurate in patients with acute kidney failure, extremes of body mass or the acutely ill. [email or web address] Blood specimen (specimen) 07/06/2018 2:55 AM EST 07/06/2018 3:01 AM EST Narrative Resulting Agency Comment Spec In Lab Wendy Alan [employer] CHEMISTRY ORDERABL ES Performing Organization Address City/[facility]/ZIP Co de Phone Number [facility] [place] [address] * (ABNORMAL) Differential, Automated (07/05/2018 2:58 AM EST) Neutrophil % 78.6 % [facility] Neutrophil Absolute 6.94(H) 1.70 - 6.10 x10(3)/mc L [facility] Lymph % 12.9 % [facility] Lymphocytes Abs 1.1 0.9 - 3.2 x10(3)/ L [facility] Monocyte % 6.5 % [facility] Monocyte Abs 0.6 0.3 - 0.9 x10(3)/ L [facility] Eos % 0.9 % [facility] Eosinophils Abs 0.1 0.0 - 0.4 x10(3)/[facility] Basophil % 0.3 % [facility] Baso Absolute 0.0 0.0 - 0.1 x10(3)/ L [facility] Immature Gran % 0.80 % [facility] Comment: Immature granulocytes(IG's)percentage and absolute count will include metamyelocytes, myelocytes, and promyelocytes. Blood smears from CBCs yielding IG's will be scanned manually for concordance. If this scan disagrees with the automated IG or if promyelocytes are noted, a manual differential will be performed. Immature Gran Absolute 0.07(H) 0.00 - 0.04 x10(3)/mc L [facility] Blood specimen (specimen) 07/05/2018 2:58 AM EST 07/05/2018 3:04 AM EST Narrative Resulting Agency Comment Spec In Lab Wendy Alan [employer] HEMATOLOGY ORDERAB LES Performing Organization Address City/[facility]/ZIP Co de Phone Number [facility] [place] [address] * (ABNORMAL) Hemogram (07/05/2018 2:58 AM EST) White Blood Cell 8.8 4.0 - 9.5 x10(3)/[facility] Red Blood Cell 3.03(L) 4.00 - 5.21 x10(6)/[facility] Hemoglobin 9.0(L) 11.7 - 15.5 gm/dL [facility] Hematocrit 27.7(L) 35.7 - 45.8 % [facility] Mean Cell Volume 91.4 82.6 - 94.4 fL [facility] Mean Cell Hemoglobin 29.7 27.1 - 32.0 pg [facility] Mean Cell Hemoglobin Concentration 32.5 31.7 - 35.0 gm/dL [facility] Platelet 302 145 - 357 x10(3)/[facility] RDW Standard Deviation 46.3(H) 37.0 - 46.0 [facility] RDW coefficient of variation 13.7 11.5 - 14.1 % [facility] Mean Platelet Volume 9.5 7.6 - 12.9 fL [facility] NRBC% auto 0.0 % [facility] NRBC Absolute 0.000 0.000 - 0.000 x10(3)/[facility] Blood specimen (specimen) 07/05/2018 2:58 AM EST 07/05/2018 3:04 AM EST Narrative Resulting Agency Comment Spec In Lab Wendy L Dayanna SUPERVISOR [employer] HEMATOLOGY ORDERAB LES [facility] [place] [address] * Phosphorus (07/05/2018 2:58 AM EST) Phosphorus 3.9 2.5 - 4.5 mg/dL [facility] Blood specimen (specimen) 07/05/2018 2:58 AM EST 07/05/2018 3:04 AM EST Narrative Resulting Agency Comment Spec In Lab Wendy Alan SUPERVISOR [employer] VAULT CHEMISTRY ORDERABL ES Performing Organization Address [facility] Co de Phone Number [facility] [place] [address] * Magnesium (07/05/2018 2:58 AM EST) Magnesium 0.80 0.69 - 1.07 mmol/L [facility] Blood specimen (specimen) 07/05/2018 2:58 AM EST 07/05/2018 3:04 AM EST Narrative Resulting Agency Comment Spec In Lab Wendy Alan SUPERVISOR [employer] VAULT CHEMISTRY ORDERABL ES Performing Organization Address [facility] de Phone Number [facility] [place] [address] * (ABNORMAL) Basic Metabolic Panel (non-fasting) (07/05/2018 2:58 AM EST) Glucose 136 65 - 199 mg/dL [facility] Comment:Diabetes: >=200 mg/d L plus symptoms Blood Urea Nitrogen 24(H) 8 - 18 mg/dL [facility] Comment:result rechecked-[facility] Creatinine 0.44(L) 0.70 - 1.20 mg/dL [facility] Sodium 139 135 - 145 mmol/L [facility] Potassium 4.0 3.5 - 5.0 mmol/L [facility] Comment: Please note: ??Patients with WBC >100,000 may have falsely elevated Potassium levels. ??For accurate Potassium quantification in these patients send serum separator tube (gold top) for subsequent determinations. ??Contact the Clinical Chemistry Laboratory if there are any questions. Chloride 97(L) 98 - 107 mmol/L [facility] Carbon Dioxide 32(H) 22 - 31 mmol/L [facility] Anion Gap 10 5 - 15 mmol/L [facility] Calcium 8.7 8.5 - 10.5 mg/dL [facility] Est Glomerular Filtration Rate 110 >=60 mL/min/1. 73 m?? [facility] Comment: The eGFR was calculated using the CKD-EPI equation. As with all creatinine based estimates of kidney function, eGFR values calculated with the CKD-EPI equation are not accurate in patients with acute kidney failure, extremes of body mass or the acutely ill. [email or web address] eGFR 127 >=60 mL/min/1. 73 m?? [facility] Comment: The eGFR was calculated using the CKD-EPI equation. As with all creatinine based estimates of kidney function, eGFR values calculated with the CKD-EPI equation are not accurate in patients with acute kidney failure, extremes of body mass or the acutely ill. [email or web address] Blood specimen (specimen) 07/05/2018 2:58 AM EST 07/05/2018 3:04 AM EST Narrative Resulting Agency Comment Spec In Lab Wendy Alan APRN CHEMISTRY ORDERABL ES Performing Organization Address City/[facility]/ZIP Co de Phone Number [facility] [place] [address] * Potassium (07/04/2018 5:25 AM EST) Potassium 4.5 3.5 - 5.0 mmol/L [facility] Comment: Please note: ??Patients with WBC >100,000 may have falsely elevated Potassium levels. ??For accurate Potassium quantification in these patients send serum separator tube (gold top) for subsequent determinations. ??Contact the Clinical Chemistry Laboratory if there are any questions. Blood specimen (specimen) 07/04/2018 5:25 AM EST 07/04/2018 5:37 AM EST Narrative Resulting Agency Comment Spec In Lab Vipin Parker MD CHEMISTRY ORDERABLES Performing Organization Address City/[facility]/ZIP Co de Phone Number [facility] [place] [address] * (ABNORMAL) BLOOD GAS 2 ARTERIAL (07/04/2018 3:10 AM EST) pH, Arterial 7.49(H) 7.35 - 7.45 [facility] PCO2, Arterial 43 35 - 45 mmHg [facility] PO2, Arterial 72(L) 85 - 104 mmHg [facility] Bicarbonate, Arterial 31.7(H) 20.0 - 26.0 mmol/L [facility] Base Excess, Arterial 8.5(H) -3.0 - 3.0 mmol/L [facility] Hgb Blood Gas 5.8(Criti bela) 11.7 - 15.5 gm/dL [facility] Oxyhemoglobin, Arterial 91.9(L) 94.0 - 97.0 % [facility] Carboxyhemoglo bin, Arterial 1.3 % [facility] Comment: Nonsmokers: 0.5-1.5% COHB Smokers: Variable, but usually less than 10% Toxic: 20-30% COHB Lethal: Greater than 60% COHB Methemoglobin, Arterial 0.6 <=1.5 % [facility] Na Whole Blood 135 135 - 145 mmol/L [facility] K Whole Blood 3.7 3.5 - 5.0 mmol/L [facility] Comment: Please note: Patients with WBC >100,000 may have falsely elevated Potassium levels. Contact the Clinical Chemistry Laboratory if there are any questions. ICa Whole Blood 1.12(L) 1.15 - 1.33 mmol/L [facility] Comment: Note: ??Total bilirubin higher than 20 mg/dL may lead to falsely low ionized calcium. CL Whole Blood 100 98 - 107 mmol/L [facility] Gluc Whole Bld 122 65 - 199 mg/dL [facility] Comment:Diabetes: >=200 mg/d L plus symptoms. Lactate WB 0.8 0.5 - 2.2 mmol/L [facility] FIO2 Art 40 % [facility] PF Ratio Art 180 [facility] Temp Art 37.7 Celsius [facility] Blood specimen (specimen) 07/04/2018 3:10 AM EST 07/04/2018 3:10 AM EST Vipin Parker MD POINT OF CARE TEST O RDERABLES [facility] [place] [address] * (ABNORMAL) Differential, Automated (07/04/2018 3:00 AM EST) Neutrophil % 75.9 % [facility] Neutrophil Absolute 4.58 1.70 - 6.10 x10(3)/mc L [facility] Lymph % 13.9 % [facility] Lymphocytes Abs 0.8(L) 0.9 - 3.2 x10(3)/mc L [facility] Monocyte % 5.6 % [facility] Monocyte Abs 0.3 0.3 - 0.9 x10(3)/mc L [facility] Eos % 2.7 % [facility] Eosinophils Abs 0.2 0.0 - 0.4 x10(3)/mc L [facility] Basophil % 0.2 % [facility] Baso Absolute 0.0 0.0 - 0.1 x10(3)/mc L [facility] Immature Gran % 1.70 % [facility] Comment: Immature granulocytes(IG's)percentage and absolute count will include metamyelocytes, myelocytes, and promyelocytes. Blood smears from CBCs yielding IG's will be scanned manually for concordance. If this scan disagrees with the automated IG or if promyelocytes are noted, a manual differential will be performed. Immature Gran Absolute 0.10(H) 0.00 - 0.04 x10(3)/mc L [facility] Blood specimen (specimen) 07/04/2018 3:00 AM EST 07/04/2018 3:13 AM EST Narrative Resulting Agency Comment Spec In Lab Wendy Alan SUPERVISOR [employer] HEMATOLOGY ORDERAB LES [facility] [place] [address] * (ABNORMAL) Hemogram (07/04/2018 3:00 AM EST) White Blood Cell 6.0 4.0 - 9.5 x10(3)/mc L [facility] Red Blood Cell 3.02(L) 4.00 - 5.21 x10(6)/mc L [facility] Hemoglobin 9.0(L) 11.7 - 15.5 gm/dL [facility] Hematocrit 27.2(L) 35.7 - 45.8 % [facility] Mean Cell Volume 90.1 82.6 - 94.4 fL [facility] Mean Cell Hemoglobin 29.8 27.1 - 32.0 pg [facility] Mean Cell Hemoglobin Concentration 33.1 31.7 - 35.0 gm/dL [facility] Platelet 269 145 - 357 x10(3)/mc L [facility] RDW Standard Deviation 45.1 37.0 - 46.0 fL [facility] RDW coefficient of variation 13.6 11.5 - 14.1 % [facility] Mean Platelet Volume 9.4 7.6 - 12.9 fL [facility] NRBC% auto 0.0 % [facility] NRBC Absolute 0.000 0.000 - 0.000 x10(3)/mc L [facility] Blood specimen (specimen) 07/04/2018 3:00 AM EST 07/04/2018 3:13 AM EST Narrative Resulting Agency Comment Spec In Lab Wendy Alan SUPERVISOR [employer] HEMATOLOGY ORDERAB LES [facility] [place] [address] * Phosphorus (07/04/2018 3:00 AM EST) Phosphorus 3.2 2.5 - 4.5 mg/dL [facility] Blood specimen (specimen) 07/04/2018 3:00 AM EST 07/04/2018 3:13 AM EST Narrative Resulting Agency Comment Spec In Lab Wendy Alan SUPERVISOR [employer] VAULT CHEMISTRY ORDERABL ES Performing Organization Address [facility] Co de Phone Number [facility] [place] [address] * Magnesium (07/04/2018 3:00 AM EST) Magnesium 0.69 0.69 - 1.07 mmol/L [facility] Blood specimen (specimen) 07/04/2018 3:00 AM EST 07/04/2018 3:13 AM EST Narrative Resulting Agency Comment Spec In Lab Wendy Alan SUPERVISOR [employer]IT[employer] VAULT CHEMISTRY ORDERABL ES Performing Organization Address [facility] Co de Phone Number [facility] [place] [address] * (ABNORMAL) Basic Metabolic Panel (non-fasting) (07/04/2018 3:00 AM EST) Glucose 124 65 - 199 mg/dL [facility] Comment:Diabetes: >=200 mg/d L plus symptoms Blood Urea Nitrogen 17 8 - 18 mg/dL [facility] Comment:Result rechecked.RR Creatinine 0.43(L) 0.70 - 1.20 mg/dL [facility] Sodium 139 135 - 145 mmol/L [facility] Potassium 4.0 3.5 - 5.0 mmol/L [facility] Comment: Please note: ??Patients with WBC >100,000 may have falsely elevated Potassium levels. ??For accurate Potassium quantification in these patients send serum separator tube (gold top) for subsequent determinations. ??Contact the Clinical Chemistry Laboratory if there are any questions. Chloride 98 98 - 107 mmol/L [facility] Carbon Dioxide 32(H) 22 - 31 mmol/L [facility] Anion Gap 9 5 - 15 mmol/L [facility] Calcium 8.2(L) 8.5 - 10.5 mg/dL [facility] Est Glomerular Filtration Rate 111 >=60 mL/min/1. 73 m?? [facility] Comment: The eGFR was calculated using the CKD-EPI equation. As with all creatinine based estimates of kidney function, eGFR values calculated with the CKD-EPI equation are not accurate in patients with acute kidney failure, extremes of body mass or the acutely ill. [email or web address] eGFR 128 >=60 mL/min/1. 73 m?? [facility] Comment: The eGFR was calculated using the CKD-EPI equation. As with all creatinine based estimates of kidney function, eGFR values calculated with the CKD-EPI equation are not accurate in patients with acute kidney failure, extremes of body mass or the acutely ill. [email or web address] Blood specimen (specimen) 07/04/2018 3:00 AM EST 07/04/2018 3:13 AM EST Narrative Resulting Agency Comment Spec In Lab Wendy Alan STEPHANIE CHEMISTRY ORDERABL ES [facility] [place] [address] * (ABNORMAL) BLOOD GAS 2 ARTERIAL (07/03/2018 5:27 PM EST) pH, Arterial 7.44 7.35 - 7.45 [facility] PCO2, Arterial 50(H) 35 - 45 mmHg [facility] PO2, Arterial 65(L) 85 - 104 mmHg [facility] Bicarbonate, Arterial 33.1(H) 20.0 - 26.0 mmol/L [facility] Base Excess, Arterial 8.9(H) -3.0 - 3.0 mmol/L [facility] Hgb Blood Gas 9.8(L) 11.7 - 15.5 gm/dL [facility] Oxyhemoglobin, Arterial 90.9(L) 94.0 - 97.0 % [facility] Carboxyhemoglob in, Arterial 0.4 % [facility] Comment: Nonsmokers: 0.5-1.5% COHB Smokers: Variable, but usually less than 10% Toxic: 20-30% COHB Lethal: Greater than 60% COHB Methemoglobin, Arterial 0.3 <=1.5 % [facility] Na Whole Blood 137 135 - 145 mmol/L [facility] K Whole Blood 3.5 3.5 - 5.0 mmol/L [facility] Comment: Please note: Patients with WBC >100,000 may have falsely elevated Potassium levels. Contact the Clinical Chemistry Laboratory if there are any questions. ICa Whole Blood 1.16 1.15 - 1.33 mmol/L [facility] Comment: Note: ??Total bilirubin higher than 20 mg/dL may lead to falsely low ionized calcium. CL Whole Blood 99 98 - 107 mmol/L [facility] Gluc Whole Bld 148 65 - 199 mg/dL [facility] Comment:Diabetes: >=200 mg/d L plus symptoms. Lactate WB 0.7 0.5 - 2.2 mmol/L [facility] Blood specimen (specimen) 07/03/2018 5:27 PM EST 07/03/2018 5:27 PM EST Vipin Parker MD POINT OF CARE TEST O RDERABLES [facility] [place] [address] * Potassium (07/03/2018 4:40 PM EST) Potassium 3.7 3.5 - 5.0 mmol/L [facility] Comment: Please note: ??Patients with WBC >100,000 may have falsely elevated Potassium levels. ??For accurate Potassium quantification in these patients send serum separator tube (gold top) for subsequent determinations. ??Contact the Clinical Chemistry Laboratory if there are any questions. Blood specimen (specimen) 07/03/2018 4:40 PM EST 07/03/2018 4:46 PM EST Narrative Resulting Agency Comment Spec In Lab Catarino Moorereault SUPERVISOR [employer]ULT CHEMISTRY ORDERA BLES [facility] [place] [address] * (ABNORMAL) BLOOD GAS 2 ARTERIAL (07/03/2018 12:14 PM EST) pH, Arterial 7.41 7.35 - 7.45 [facility] PCO2, Arterial 50(H) 35 - 45 mmHg [facility] PO2, Arterial 66(L) 85 - 104 mmHg [facility] Bicarbonate, Arterial 30.5(H) 20.0 - 26.0 mmol/L [facility] Base Excess, Arterial 5.8(H) -3.0 - 3.0 mmol/L [facility] Hgb Blood Gas 9.5(L) 11.7 - 15.5 gm/dL [facility] Oxyhemoglobin, Arterial 90.5(L) 94.0 - 97.0 % [facility] Carboxyhemoglob in, Arterial 0.7 % [facility] Comment: Nonsmokers: 0.5-1.5% COHB Smokers: Variable, but usually less than 10% Toxic: 20-30% COHB Lethal: Greater than 60% COHB Methemoglobin, Arterial 0.2 <=1.5 % [facility] Na Whole Blood 136 135 - 145 mmol/L [facility] K Whole Blood 3.9 3.5 - 5.0 mmol/L [facility] Comment: Please note: Patients with WBC >100,000 may have falsely elevated Potassium levels. Contact the Clinical Chemistry Laboratory if there are any questions. ICa Whole Blood 1.12(L) 1.15 - 1.33 mmol/L [facility] Comment: Note: ??Total bilirubin higher than 20 mg/dL may lead to falsely low ionized calcium. CL Whole Blood 102 98 - 107 mmol/L [facility] Gluc Whole Bld 120 65 - 199 mg/dL [facility] Comment:Diabetes: >=200 mg/d L plus symptoms. Lactate WB 0.7 0.5 - 2.2 mmol/L [facility] FIO2 Art 40 % [facility] PF Ratio Art 165 [facility] Blood specimen (specimen) 07/03/2018 12:14 PM EST 07/03/2018 12:14 PM EST Vipin Parker MD POINT OF CARE TEST O RDERABLES Performing Organization Address City/State/[facility] Co de Phone Number [facility] [place] [address] * XR Chest PA or AP 1 [...] report, please contact the number below. Vipin Parker MD IMG DX ORDERABLES * Potassium (07/03/2018 8:22 AM EST) Potassium 4.0 3.5 - 5.0 mmol/L [facility] Comment: Please note: ??Patients with WBC >100,000 may have falsely elevated Potassium levels. ??For accurate Potassium quantification in these patients send serum separator tube (gold top) for subsequent determinations. ??Contact the Clinical Chemistry Laboratory if there are any questions. Blood specimen (specimen) 07/03/2018 8:22 AM EST 07/03/2018 8:34 AM EST Narrative Resulting Agency Comment Spec In Lab Catarino Yin SUPER[employer]ULT CHEMISTRY ORDERA BLES [facility] [place] [address] * (ABNORMAL) BLOOD GAS 2 ARTERIAL (07/03/2018 8:20 AM EST) pH, Arterial 7.38 7.35 - 7.45 [facility] PCO2, Arterial 54(H) 35 - 45 mmHg [facility] PO2, Arterial 64(L) 85 - 104 mmHg [facility] Bicarbonate, Arterial 31.5(H) 20.0 - 26.0 mmol/L [facility] Base Excess, Arterial 6.4(H) -3.0 - 3.0 mmol/L [facility] Hgb Blood Gas 9.4(L) 11.7 - 15.5 gm/dL [facility] Oxyhemoglobin, Arterial 89.6(L) 94.0 - 97.0 % [facility] Carboxyhemoglob in, Arterial 0.3 % [facility] Comment: Nonsmokers: 0.5-1.5% COHB Smokers: Variable, but usually less than 10% Toxic: 20-30% COHB Lethal: Greater than 60% COHB Methemoglobin, Arterial 0.4 <=1.5 % [facility] Na Whole Blood 137 135 - 145 mmol/L [facility] K Whole Blood 3.9 3.5 - 5.0 mmol/L [facility] Comment: Please note: Patients with WBC >100,000 may have falsely elevated Potassium levels. Contact the Clinical Chemistry Laboratory if there are any questions. ICa Whole Blood 1.14(L) 1.15 - 1.33 mmol/L [facility] Comment: Note: ??Total bilirubin higher than 20 mg/dL may lead to falsely low ionized calcium. CL Whole Blood 102 98 - 107 mmol/L [facility] Gluc Whole Bld 133 65 - 199 mg/dL [facility] Comment:Diabetes: >=200 mg/d L plus symptoms. Lactate WB 0.7 0.5 - 2.2 mmol/L [facility] FIO2 Art 40 % [facility] PF Ratio Art 160 [facility] Blood specimen (specimen) 07/03/2018 8:20 AM EST 07/03/2018 8:20 AM EST Vipin Parker MD POINT OF CARE [place] [address] * (ABNORMAL) Differential, Automated (07/03/2018 2:15 AM EST) Neutrophil % 77.4 % [facility] Neutrophil Absolute 5.39 1.70 - 6.10 x10(3)/mc L [facility] Lymph % 11.6 % [facility] Lymphocytes Abs 0.8(L) 0.9 - 3.2 x10(3)/[facility] Monocyte % 5.7 % [facility] Monocyte Abs 0.4 0.3 - 0.9 x10(3)/[facility] Eos % 3.0 % [facility] Eosinophils Abs 0.2 0.0 - 0.4 x10(3)/[facility] Basophil % 0.4 % [facility] Baso Absolute 0.0 0.0 - 0.1 x10(3)/[facility] Immature Gran % 1.90 % [facility] Comment: Immature granulocytes(IG's)percentage and absolute count will include metamyelocytes, myelocytes, and promyelocytes. Blood smears from CBCs yielding IG's will be scanned manually for concordance. If this scan disagrees with the automated IG or if promyelocytes are noted, a manual differential will be performed. Immature Gran Absolute 0.13(H) 0.00 - 0.04 x10(3)/ L [facility] Blood specimen (specimen) 07/03/2018 2:15 AM EST 07/03/2018 2:23 AM EST Narrative Resulting Agency Comment Spec In Lab Wendy Alan SUPER[employer] HEMATOLOGY ORDERAB LES Performing Organization Address City/[facility]/ZIP [place] [address] * (ABNORMAL) Hemogram (07/03/2018 2:15 AM EST) White Blood Cell 7.0 4.0 - 9.5 x10(3)/ L [facility] Red Blood Cell 3.00(L) 4.00 - 5.21 x10(6)/ L [facility] Hemoglobin 8.8(L) 11.7 - 15.5 gm/dL [facility] Hematocrit 27.7(L) 35.7 - 45.8 % [facility] Mean Cell Volume 92.3 82.6 - 94.4 fL [facility] Mean Cell Hemoglobin 29.3 27.1 - 32.0 pg [facility] Mean Cell Hemoglobin Concentration 31.8 31.7 - 35.0 gm/dL [facility] Platelet 283 145 - 357 x10(3)/[facility] RDW Standard Deviation 47.6(H) 37.0 - 46.0 [facility] RDW coefficient of variation 14.0 11.5 - 14.1 % [facility] Mean Platelet Volume 9.3 7.6 - 12.9 fL [facility] NRBC% auto 0.0 % [facility] NRBC Absolute 0.000 0.000 - 0.000 x10(3)/[facility] Blood specimen (specimen) 07/03/2018 2:15 AM EST 07/03/2018 2:23 AM EST Narrative Resulting Agency Comment Spec In Lab Wendy Alan SUPER[employer]ULT HEMATOLOGY ORDERAB LES [facility] [place] [address] * CK (07/03/2018 2:15 AM EST) Creatine Kinase 59 0 - 160 unit/L [facility] Blood specimen (specimen) 07/03/2018 2:15 AM EST 07/03/2018 2:23 AM EST Narrative Resulting Agency Comment Spec In Lab Vipin Parker MD CHEMISTRY ORDERABLES Performing Organization Address [facility] Co de Phone Number [facility] [place] [address] * Phosphorus (07/03/2018 2:15 AM EST) Phosphorus 3.4 2.5 - 4.5 mg/dL [facility] Blood specimen (specimen) 07/03/2018 2:15 AM EST 07/03/2018 2:23 AM EST Narrative Resulting Agency Comment Spec In Lab Wenyd Alan SUPERVIS[employer] VAULT CHEMISTRY ORDERABL ES Performing Organization Address [facility] Phone Number [facility] [place] [address] * Magnesium (07/03/2018 2:15 AM EST) Magnesium 0.78 0.69 - 1.07 mmol/L [facility] Blood specimen (specimen) 07/03/2018 2:15 AM EST 07/03/2018 2:23 AM EST Narrative Resulting Agency Comment Spec In Lab Wendy Alan SUPERVISOR [employer]URIT[employer] VAULT CHEMISTRY ORDERABL ES Performing Organization Address [facility] Co de Phone Number [facility] [place] [address] * (ABNORMAL) Basic Metabolic Panel (non-fasting) (07/03/2018 2:15 AM EST) Glucose 126 65 - 199 mg/dL [facility] Comment:Diabetes: >=200 mg/d L plus symptoms Blood Urea Nitrogen 8 8 - 18 mg/dL [facility] Creatinine 0.42(L) 0.70 - 1.20 mg/dL [facility] Sodium 137 135 - 145 mmol/L [facility] Potassium 3.9 3.5 - 5.0 mmol/L [facility] Comment: Please note: ??Patients with WBC >100,000 may have falsely elevated Potassium levels. ??For accurate Potassium quantification in these patients send serum separator tube (gold top) for subsequent determinations. ??Contact the Clinical Chemistry Laboratory if there are any questions. Chloride 99 98 - 107 mmol/L [facility] Carbon Dioxide 30 22 - 31 mmol/L [facility] Anion Gap 8 5 - 15 mmol/L [facility] Calcium 8.4(L) 8.5 - 10.5 mg/dL [facility] Est Glomerular Filtration Rate 111 >=60 mL/min/1. 73 m?? [facility] Comment: The eGFR was calculated using the CKD-EPI equation. As with all creatinine based estimates of kidney function, eGFR values calculated with the CKD-EPI equation are not accurate in patients with acute kidney failure, extremes of body mass or the acutely ill. [email or web address] eGFR 129 >=60 mL/min/1. 73 m?? [facility] Comment: The eGFR was calculated using the CKD-EPI equation. As with all creatinine based estimates of kidney function, eGFR values calculated with the CKD-EPI equation are not accurate in patients with acute kidney failure, extremes of body mass or the acutely ill. [email or web address] Blood specimen (specimen) 07/03/2018 2:15 AM EST 07/03/2018 2:23 AM EST Narrative Resulting Agency Comment Spec In Lab Wendy Alan SUPER[employer] CHEMISTRY ORDERABL ES [facility] [place] [address] * Triglyceride (07/03/2018 2:15 AM EST) Triglyceride 430 mg/dL [facility] Comment: Average Risk/Lower Risk: <150 mg/dL Borderline High Risk: 150-199 mg/dL High Risk: 200-499 mg/dL Very High Risk: >uq=483 mg/dL Blood specimen (specimen) 07/03/2018 2:15 AM EST 07/03/2018 2:23 AM EST Narrative Resulting Agency Comment Spec In Lab Vipin Parker MD CHEMISTRY ORDERABLES [facility] [place] [address] * (ABNORMAL) BLOOD GAS 2 ARTERIAL (07/02/2018 3:33 PM EST) pH, Arterial 7.38 7.35 - 7.45 [facility] PCO2, Arterial 44 35 - 45 mmHg [facility] PO2, Arterial 82(L) 85 - 104 mmHg [facility] Bicarbonate, Arterial 25.5 20.0 - 26.0 mmol/L [facility] Base Excess, Arterial 0.3 -3.0 - 3.0 mmol/L [facility] Hgb Blood Gas 8.2(L) 11.7 - 15.5 gm/dL [facility] Oxyhemoglobin, Arterial 93.9(L) 94.0 - 97.0 % [facility] Carboxyhemoglob in, Arterial 0.4 % [facility] Comment: Nonsmokers: 0.5-1.5% COHB Smokers: Variable, but usually less than 10% Toxic: 20-30% COHB Lethal: Greater than 60% COHB Methemoglobin, Arterial 0.5 <=1.5 % [facility] Na Whole Blood 137 135 - 145 mmol/L [facility] K Whole Blood 3.2(L) 3.5 - 5.0 mmol/L [facility] Comment: Please note: Patients with WBC >100,000 may have falsely elevated Potassium levels. Contact the Clinical Chemistry Laboratory if there are any questions. ICa Whole Blood 1.05(L) 1.15 - 1.33 mmol/L [facility] Comment: Note: ??Total bilirubin higher than 20 mg/dL may lead to falsely low ionized calcium. CL Whole Blood 109(H) 98 - 107 mmol/L [facility] Gluc Whole Bld 85 65 - 199 mg/dL [facility] Comment:Diabetes: >=200 mg/d L plus symptoms. Lactate WB 0.7 0.5 - 2.2 mmol/L [facility] FIO2 Art 40 % [facility] PF Ratio Art 205 [facility] Blood specimen (specimen) 07/02/2018 3:33 PM EST 07/02/2018 3:33 PM EST Vipin Parker MD POINT OF CARE TEST O RDERABLES Performing Organization Address [facility] Co de Phone Number [facility] [place] [address] * Potassium (07/02/2018 9:15 AM EST) Potassium 4.2 3.5 - 5.0 mmol/L [facility] Comment: Please note: ??Patients with [...] APRN CHEMISTRY ORDERA BLES Performing Organization Address [facility] Co de Phone Number [facility] [place] [address] * (ABNORMAL) Differential, Automated (07/02/2018 2:10 AM EST) Neutrophil % 80.1 % [facility] Neutrophil Absolute 7.75(H) 1.70 - 6.10 x10(3)/mc L [facility] Lymph % 9.0 % [facility] Lymphocytes Abs 0.9 0.9 - 3.2 x10(3)/mc L [facility] Monocyte % 4.5 % [facility] Monocyte Abs 0.4 0.3 - 0.9 x10(3)/[facility] Eos % 2.9 % [facility] Eosinophils Abs 0.3 0.0 - 0.4 x10(3)/[facility] Basophil % 0.3 % [facility] Baso Absolute 0.0 0.0 - 0.1 x10(3)/[facility] Immature Gran % 3.20 % [facility] Comment: Immature granulocytes(IG's)percentage and absolute count will include metamyelocytes, myelocytes, and promyelocytes. Blood smears from CBCs yielding IG's will be scanned manually for concordance. If this scan disagrees with the automated IG or if promyelocytes are noted, a manual differential will be performed. Immature Gran Absolute 0.31(H) 0.00 - 0.04 x10(3)/[facility] Blood specimen (specimen) 07/02/2018 2:10 AM EST 07/02/2018 2:21 AM EST Narrative Resulting Agency Comment Spec In Lab Wendy Slaughter Alan [employer] HEMATOLOGY ORDERAB LES [facility] [place] [address] * (ABNORMAL) Hemogram (07/02/2018 2:10 AM EST) White Blood Cell 9.7(H) 4.0 - 9.5 x10(3)/[facility] Red Blood Cell 2.86(L) 4.00 - 5.21 x10(6)/[facility] Hemoglobin 8.5(L) 11.7 - 15.5 gm/dL [facility] Hematocrit 26.9(L) 35.7 - 45.8 % [facility] Mean Cell Volume 94.1 82.6 - 94.4 fL [facility] Mean Cell Hemoglobin 29.7 27.1 - 32.0 pg [facility] Mean Cell Hemoglobin Concentration 31.6(L) 31.7 - 35.0 gm/dL [facility] Platelet 277 145 - 357 x10(3)/mc L [facility] RDW Standard Deviation 49.1(H) 37.0 - 46.0 [facility] RDW coefficient of variation 14.3(H) 11.5 - 14.1 % [facility] Mean Platelet Volume 9.7 7.6 - 12.9 [facility] NRBC% auto 0.0 % [facility] NRBC Absolute 0.000 0.000 - 0.000 x10(3)/mc L [facility] Blood specimen (specimen) 07/02/2018 2:10 AM EST 07/02/2018 2:21 AM EST Narrative Resulting Agency Comment Spec In Lab Wendyagustin Alan [employer]PER[employer] HEMATOLOGY ORDERAB LES Performing Organization Address City/[facility]/ZIP Co de Phone Number [facility] [place] [address] * Phosphorus (07/02/2018 2:10 AM EST) Phosphorus 3.2 2.5 - 4.5 mg/dL [facility] Blood specimen (specimen) 07/02/2018 2:10 AM EST 07/02/2018 2:21 AM EST Narrative Resulting Agency Comment Spec In Lab Wendy Alan SUPER[employer]ULT CHEMISTRY ORDERABL ES Performing Organization Address City/[facility]/ZIP Co de Phone Number [facility] [place] [address] * Magnesium (07/02/2018 2:10 AM EST) Magnesium 0.76 0.69 - 1.07 mmol/L [facility] Blood specimen (specimen) 07/02/2018 2:10 AM EST 07/02/2018 2:21 AM EST Narrative Resulting Agency Comment Spec In Lab Wendy Alan STEPHANIE CHEMISTRY ORDERABL ES [facility] [place] [address] * (ABNORMAL) Basic Metabolic Panel (non-fasting) (07/02/2018 2:10 AM EST) Glucose 96 65 - 199 mg/dL [facility] Comment:Diabetes: >=200 mg/d L plus symptoms Blood Urea Nitrogen 9 8 - 18 mg/dL [facility] Creatinine 0.42(L) 0.70 - 1.20 mg/dL [facility] Sodium 139 135 - 145 mmol/L [facility] Potassium 3.9 3.5 - 5.0 mmol/L [facility] Comment: Please note: ??Patients with WBC >100,000 may have falsely elevated Potassium levels. ??For accurate Potassium quantification in these patients send serum separator tube (gold top) for subsequent determinations. ??Contact the Clinical Chemistry Laboratory if there are any questions. Chloride 100 98 - 107 mmol/L [facility] Carbon Dioxide 27 22 - 31 mmol/L [facility] Anion Gap 12 5 - 15 mmol/L [facility] Calcium 8.1(L) 8.5 - 10.5 mg/dL [facility] Est Glomerular Filtration Rate 111 >=60 mL/min/1. 73 m?? [facility] Comment: The eGFR was calculated using the CKD-EPI equation. As with all creatinine based estimates of kidney function, eGFR values calculated with the CKD-EPI equation are not accurate in patients with acute kidney failure, extremes of body mass or the acutely ill. [email or web address] eGFR 129 >=60 mL/min/1. 73 m?? [facility] Comment: The eGFR was calculated using the CKD-EPI equation. As with all creatinine based estimates of kidney function, eGFR values calculated with the CKD-EPI equation are not accurate in patients with acute kidney failure, extremes of body mass or the acutely ill. [email or web address] Blood specimen (specimen) 07/02/2018 2:10 AM EST 07/02/2018 2:21 AM EST Narrative Resulting Agency Comment Spec In Lab Wendy Slaughter Dayanna BROWN CHEMISTRY ORDERABL ES Performing Organization Address [facility] Co de Phone Number [facility] [place] [address] * Triglyceride (07/02/2018 2:10 AM EST) Triglyceride 361 mg/dL [facility] Comment: Average Risk/Lower Risk: <150 mg/dL Borderline High Risk: 150-199 mg/dL High Risk: 200-499 mg/dL Very High Risk: >ly=436 mg/dL Blood specimen (specimen) 07/02/2018 2:10 AM EST 07/02/2018 2:21 AM EST Narrative Resulting Agency Comment Spec In Lab Vipin Parker MD CHEMISTRY ORDERABLES Performing Organization Address [facility] de Phone Number [facility] [place] [address] * (ABNORMAL) BLOOD GAS 2 ARTERIAL (07/01/2018 6:35 PM EST) pH, Arterial 7.36 7.35 - 7.45 [facility] PCO2, Arterial 46(H) 35 - 45 mmHg [facility] PO2, Arterial 79(L) 85 - 104 mmHg [facility] Bicarbonate, Arterial 25.3 20.0 - 26.0 mmol/L [facility] Base Excess, Arterial -0.1 -3.0 - 3.0 mmol/L [facility] Hgb Blood Gas 9.5(L) 11.7 - 15.5 gm/dL [facility] Oxyhemoglobin, Arterial 93.8(L) 94.0 - 97.0 % [facility] Carboxyhemoglob in, Arterial 0.7 % [facility] Comment: Nonsmokers: 0.5-1.5% COHB Smokers: Variable, but usually less than 10% Toxic: 20-30% COHB Lethal: Greater than 60% COHB Methemoglobin, Arterial 0.4 <=1.5 % [facility] Na Whole Blood 136 135 - 145 mmol/L [facility] K Whole Blood 3.6 3.5 - 5.0 mmol/L [facility] Comment: Please note: Patients with WBC >100,000 may have falsely elevated Potassium levels. Contact the Clinical Chemistry Laboratory if there are any questions. ICa Whole Blood 1.18 1.15 - 1.33 mmol/L [facility] Comment: Note: ??Total bilirubin higher than 20 mg/dL may lead to falsely low ionized calcium. CL Whole Blood 104 98 - 107 mmol/L [facility] Gluc Whole Bld 90 65 - 199 mg/dL [facility] Comment:Diabetes: >=200 mg/d L plus symptoms. Lactate WB 0.8 0.5 - 2.2 mmol/L [facility] FIO2 Art 40 % [facility] PF Ratio Art 198 [facility] Blood specimen (specimen) 07/01/2018 6:35 PM EST 07/01/2018 6:35 PM EST Vipin Parker MD POINT OF CARE TEST O RDERABLES [facility] [place] [address] * (ABNORMAL) BLOOD GAS 2 ARTERIAL (07/01/2018 12:08 PM EST) pH, Arterial 7.34(L) 7.35 - 7.45 [facility] PCO2, Arterial 50(H) 35 - 45 mmHg [facility] PO2, Arterial 80(L) 85 - 104 mmHg [facility] Bicarbonate, Arterial 26.5(H) 20.0 - 26.0 mmol/L [facility] Base Excess, Arterial 0.8 -3.0 - 3.0 mmol/L [facility] Hgb Blood Gas 9.6(L) 11.7 - 15.5 gm/dL [facility] Oxyhemoglobin, Arterial 93.3(L) 94.0 - 97.0 % [facility] Carboxyhemoglob in, Arterial 1.2 % [facility] Comment: Nonsmokers: 0.5-1.5% COHB Smokers: Variable, but usually less than 10% Toxic: 20-30% COHB Lethal: Greater than 60% COHB Methemoglobin, Arterial 0.2 <=1.5 % [facility] Na Whole Blood 137 135 - 145 mmol/L [facility] K Whole Blood 3.9 3.5 - 5.0 mmol/L [facility] Comment: Please note: Patients with WBC >100,000 may have falsely elevated Potassium levels. Contact the Clinical Chemistry Laboratory if there are any questions. ICa Whole Blood 1.18 1.15 - 1.33 mmol/L [facility] Comment: Note: ??Total bilirubin higher than 20 mg/dL may lead to falsely low ionized calcium. CL Whole Blood 104 98 - 107 mmol/L [facility] Gluc Whole Bld 96 65 - 199 mg/dL [facility] Comment:Diabetes: >=200 mg/d L plus symptoms. Lactate WB 0.8 0.5 - 2.2 mmol/L [facility] FIO2 Art 40 % [facility] PF Ratio Art 200 [facility] Blood specimen (specimen) 07/01/2018 12:08 PM EST 07/01/2018 12:08 PM EST Vipin Parker MD POINT OF CARE TEST O RDERABLES [facility] [place] [address] * (ABNORMAL) BLOOD GAS 2 ARTERIAL (07/01/2018 5:49 AM EST) pH, Arterial 7.32(L) 7.35 - 7.45 [facility] PCO2, Arterial 56(H) 35 - 45 mmHg [facility] PO2, Arterial 74(L) 85 - 104 mmHg [facility] Bicarbonate, Arterial 28.7(H) 20.0 - 26.0 mmol/L [facility] Base Excess, Arterial 2.6 -3.0 - 3.0 mmol/L [facility] Hgb Blood Gas 10.0(L) 11.7 - 15.5 gm/dL [facility] Oxyhemoglobin, Arterial 92.6(L) 94.0 - 97.0 % [facility] Carboxyhemoglob in, Arterial 0.4 % [facility] Comment: Nonsmokers: 0.5-1.5% COHB Smokers: Variable, but usually less than 10% Toxic: 20-30% COHB Lethal: Greater than 60% COHB Methemoglobin, Arterial 0.3 <=1.5 % [facility] Na Whole Blood 138 135 - 145 mmol/L [facility] K Whole Blood 4.2 3.5 - 5.0 mmol/L [facility] Comment: Please note: Patients with WBC >100,000 may have falsely elevated Potassium levels. Contact the Clinical Chemistry Laboratory if there are any questions. ICa Whole Blood 1.18 1.15 - 1.33 mmol/L [facility] Comment: Note: ??Total bilirubin higher than 20 mg/dL may lead to falsely low ionized calcium. CL Whole Blood 105 98 - 107 mmol/L [facility] Gluc Whole Bld 101 65 - 199 mg/dL [facility] Comment:Diabetes: >=200 mg/d L plus symptoms. Lactate WB 0.8 0.5 - 2.2 mmol/L [facility] FIO2 Art 40 % [facility] PF Ratio Art 185 [facility] Blood specimen (specimen) 07/01/2018 5:49 AM EST 07/01/2018 5:49 AM EST Vipin Parker MD POINT OF CARE TEST O RDERABLES Performing Organization Address [facility] Co de Phone Number [facility] [place] [address] * Legionella culture Sputum Expectorated (07/01/2018 3:41 AM EST) Legionella Culture No Legionella isolated [facility] Sputum specimen (specimen) 07/01/2018 3:41 AM EST 07/01/2018 7:28 AM EST Narrative Resulting Agency Comment Spec In Lab Vipin Parker MD MICROBIOLOGY - GENER AL ORDERABLES Performing Organization Address [facility] de Phone Number [facility] [place] [address] * (ABNORMAL) Lower Respiratory Culture Sputum Expectorated (07/01/2018 3:41 AM EST) Lower Respiratory Culture [place] albicans Rare mixed bacterial morphotypes suggestive of normal upper respiratory germaine (A) [facility] Gram Stain Few Neutrophils seen Few squamous epithelial cells seen Few Yeast seen Rare mixed bacterial morphotypes suggestive of normal upper respiratory germaine (A) [facility] Organism [place] albicans(A) [facility] Organism Yeast(A) [facility] Sputum specimen (specimen) 07/01/2018 3:41 AM EST 07/01/2018 7:28 AM EST Narrative Resulting Agency Comment Spec In Lab Wendy Alan APRN MICROBIOLOGY - GEN ERAL ORDERABLES Performing Organization Address [facility] Co de Phone Number [facility] [place] [address] * (ABNORMAL) Differential, Automated (07/01/2018 2:15 AM EST) Neutrophil % 81.1 % [facility] Neutrophil Absolute 7.76(H) 1.70 - 6.10 x10(3)/mc L [facility] Lymph % 10.1 % [facility] Lymphocytes Abs 1.0 0.9 - 3.2 x10(3)/[facility] Monocyte % 3.5 % [facility] Monocyte Abs 0.3 0.3 - 0.9 x10(3)/[facility] Eos % 2.2 % [facility] Eosinophils Abs 0.2 0.0 - 0.4 x10(3)/[facility] Basophil % 0.2 % [facility] Baso Absolute 0.0 0.0 - 0.1 x10(3)/[facility] Immature Gran % 2.90 % [facility] Comment: Immature granulocytes(IG's)percentage and absolute count will include metamyelocytes, myelocytes, and promyelocytes. Blood smears from CBCs yielding IG's will be scanned manually for concordance. If this scan disagrees with the automated IG or if promyelocytes are noted, a manual differential will be performed. Immature Gran Absolute 0.28(H) 0.00 - 0.04 x10(3)/[facility] Blood specimen (specimen) 07/01/2018 2:15 AM EST 07/01/2018 2:27 AM EST Narrative Resulting Agency Comment Spec In Lab Wendy Alan APRN HEMATOLOGY ORDERAB LES [facility] [place] [address] * (ABNORMAL) Hemogram (07/01/2018 2:15 AM EST) White Blood Cell 9.6(H) 4.0 - 9.5 x10(3)/[facility] Red Blood Cell 2.97(L) 4.00 - 5.21 x10(6)/[facility] Hemoglobin 8.7(L) 11.7 - 15.5 gm/dL [facility] Hematocrit 28.1(L) 35.7 - 45.8 % [facility] Mean Cell Volume 94.6(H) 82.6 - 94.4 fL [facility] Mean Cell Hemoglobin 29.3 27.1 - 32.0 pg [facility] Mean Cell Hemoglobin Concentration 31.0(L) 31.7 - 35.0 gm/dL [facility] Platelet 278 145 - 357 x10(3)/mc L [facility] RDW Standard Deviation 50.6(H) 37.0 - 46.0 fL [facility] RDW coefficient of variation 14.6(H) 11.5 - 14.1 % [facility] Mean Platelet Volume 9.9 7.6 - 12.9 fL [facility] NRBC% auto 0.0 % [facility] NRBC Absolute 0.000 0.000 - 0.000 x10(3)/mc L [facility] Blood specimen (specimen) 07/01/2018 2:15 AM EST 07/01/2018 2:27 AM EST Narrative Resulting Agency Comment Spec In Lab Wendy L Dayanna SU[employer] HEMATOLOGY ORDERAB LES Performing Organization Address [facility] Co de Phone Number [facility] [place] [address] * Phosphorus (07/01/2018 2:15 AM EST) Phosphorus 3.8 2.5 - 4.5 mg/dL [facility] Blood specimen (specimen) 07/01/2018 2:15 AM EST 07/01/2018 2:27 AM EST Narrative Resulting Agency Comment Spec In Lab Wendy Slaughter Dayanna SUPER[employer]IT[employer] VAULT CHEMISTRY ORDERABL ES Performing Organization Address [facility] Co de Phone Number [facility] [place] [address] * Magnesium (07/01/2018 2:15 AM EST) Magnesium 0.81 0.69 - 1.07 mmol/L [facility] Blood specimen (specimen) 07/01/2018 2:15 AM EST 07/01/2018 2:27 AM EST Narrative Resulting Agency Comment Spec In Lab Wendy Alan SUPER[employer]OR [employer] VAULT CHEMISTRY ORDERABL ES [facility] [place] [address] * (ABNORMAL) Basic Metabolic Panel (non-fasting) (07/01/2018 2:15 AM EST) Glucose 100 65 - 199 mg/dL [facility] Comment:Diabetes: >=200 mg/d L plus symptoms Blood Urea Nitrogen 15 8 - 18 mg/dL [facility] Creatinine 0.41(L) 0.70 - 1.20 mg/dL [facility] Sodium 138 135 - 145 mmol/L [facility] Potassium 4.2 3.5 - 5.0 mmol/L [facility] Comment: Please note: ??Patients with WBC >100,000 may have falsely elevated Potassium levels. ??For accurate Potassium quantification in these patients send serum separator tube (gold top) for subsequent determinations. ??Contact the Clinical Chemistry Laboratory if there are any questions. Chloride 101 98 - 107 mmol/L [facility] Carbon Dioxide 27 22 - 31 mmol/L [facility] Anion Gap 10 5 - 15 mmol/L [facility] Calcium 8.3(L) 8.5 - 10.5 mg/dL [facility] Est Glomerular Filtration Rate 112 >=60 mL/min/1. 73 m?? [facility] Comment: The eGFR was calculated using the CKD-EPI equation. As with all creatinine based estimates of kidney function, eGFR values calculated with the CKD-EPI equation are not accurate in patients with acute kidney failure, extremes of body mass or the acutely ill. [email or web address] eGFR 130 >=60 mL/min/1. 73 m?? [facility] Comment: The eGFR was calculated using the CKD-EPI equation. As with all creatinine based estimates of kidney function, eGFR values calculated with the CKD-EPI equation are not accurate in patients with acute kidney failure, extremes of body mass or the acutely ill. [email or web address] Blood specimen (specimen) 07/01/2018 2:15 AM EST 07/01/2018 2:27 AM EST Narrative Resulting Agency Comment Spec In Lab Wendy L Alan SUPER[employer] VAULT CHEMISTRY ORDERABL ES [facility] [place] [address] * (ABNORMAL) BLOOD GAS 2 ARTERIAL (06/30/2018 9:48 PM EST) pH, Arterial 7.29(Criti bela) 7.35 - 7.45 [facility] PCO2, Arterial 56(H) 35 - 45 mmHg [facility] PO2, Arterial 94 85 - 104 mmHg [facility] Bicarbonate, Arterial 26.1(H) 20.0 - 26.0 mmol/L [facility] Base Excess, Arterial -0.4 -3.0 - 3.0 mmol/L [facility] Hgb Blood Gas 9.9(L) 11.7 - 15.5 gm/dL [facility] Oxyhemoglobin, Arterial 95.3 94.0 - 97.0 % [facility] Carboxyhemoglob in, Arterial 0.1 % [facility] Comment: Nonsmokers: 0.5-1.5% COHB Smokers: Variable, but usually less than 10% Toxic: 20-30% COHB Lethal: Greater than 60% COHB Methemoglobin, Arterial 0.4 <=1.5 % [facility] [facility] Na Whole Blood 138 135 - 145 mmol/L [facility] K Whole Blood 4.2 3.5 - 5.0 mmol/L [facility] Comment: Please note: Patients with WBC >100,000 may have falsely elevated Potassium levels. Contact the Clinical Chemistry Laboratory if there are any questions. ICa Whole Blood 1.20 1.15 - 1.33 mmol/L [facility] Comment: Note: ??Total bilirubin higher than 20 mg/dL may lead to falsely low ionized calcium. CL Whole Blood 105 98 - 107 mmol/L [facility] Gluc Whole Bld 111 65 - 199 mg/dL [facility] Comment:Diabetes: >=200 mg/d L plus symptoms. Lactate WB 0.6 0.5 - 2.2 mmol/L [facility] FIO2 Art 60 % [facility] PF Ratio Art 157 [facility] Blood specimen (specimen) 06/30/2018 9:48 PM EST 06/30/2018 9:48 PM EST Vipin Parker MD POINT OF CARE TEST O RDERAZORAIDA Performing Organization Address City/State/[facility] Co de Phone Number [facility] [place] [address] * XR Chest PA or AP 1 [...] please contact the number below. ? Narrative 07/01/2018 8:46 AM EST EXAMINATION: XR [...] the number below. Electronically signed by: HERLINDA Guzman [facility]([phone]), at 07/01/2018 8:46 AM Vipin Parker MD IMG DX ORDERABLES * CK (06/30/2018 6:13 PM EST) Creatine Kinase 141 0 - 160 unit/L [facility] Blood specimen (specimen) 06/30/2018 6:13 PM EST 06/30/2018 6:29 PM EST Narrative Resulting Agency Comment Spec In Lab Vipin Parker MD CHEMISTRY ORDERABLES Performing Organization Address [facility] Co de Phone Number [facility] [place] [address] * Blood culture (06/30/2018 1:00 PM EST) Blood Culture No growth at 5 days. [facility] Blood specimen (specimen) STRUCTURE OF LEFT WRIST REGION / Unknown 06/30/2018 1:00 PM EST 06/30/2018 1:45 PM EST Narrative Resulting Agency Comment Spec In Lab Vipin Parker MD MICROBIOLOGY - BLOOD ORDERABLES Performing Organization Address [facility] Co de Phone Number [facility] [place] [address] * Blood culture (06/30/2018 1:00 PM EST) Pathologist [facility] Blood Culture No growth at 5 days. [facility] Blood specimen (specimen) STRUCTURE OF RIGHT WRIST REGION / Unknown 06/30/2018 1:00 PM EST 06/30/2018 1:45 PM EST Narrative Resulting Agency Comment Spec In Lab Vipin Parker MD MICROBIOLOGY - BLOOD ORDERABLES Performing Organization Address [facility] Co de Phone Number [facility] [place] [address] * (ABNORMAL) BLOOD GAS 2 ARTERIAL (06/30/2018 11:33 AM EST) pH, Arterial 7.31(L) 7.35 - 7.45 [facility] PCO2, Arterial 52(H) 35 - 45 mmHg [facility] PO2, Arterial 62(L) 85 - 104 mmHg [facility] Bicarbonate, Arterial 26.0 20.0 - 26.0 mmol/L [facility] Base Excess, Arterial -0.3 -3.0 - 3.0 mmol/L [facility] Hgb Blood Gas 10.8(L) 11.7 - 15.5 gm/dL [facility] Oxyhemoglobin, Arterial 88.1(L) 94.0 - 97.0 % [facility] Carboxyhemoglob in, Arterial 0.5 % [facility] Comment: Nonsmokers: 0.5-1.5% COHB Smokers: Variable, but usually less than 10% Toxic: 20-30% COHB Lethal: Greater than 60% COHB Methemoglobin, Arterial 0.3 <=1.5 % [facility] Na Whole Blood 136 135 - 145 mmol/L [facility] K Whole Blood 4.5 3.5 - 5.0 mmol/L [facility] Comment: Please note: Patients with WBC >100,000 may have falsely elevated Potassium levels. Contact the Clinical Chemistry Laboratory if there are any questions. ICa Whole Blood 1.21 1.15 - 1.33 mmol/L [facility] Comment: Note: ??Total bilirubin higher than 20 mg/dL may lead to falsely low ionized calcium. CL Whole Blood 104 98 - 107 mmol/L [facility] Gluc Whole Bld 123 65 - 199 mg/dL [facility] Comment:Diabetes: >=200 mg/d L plus symptoms. Lactate WB 0.9 0.5 - 2.2 mmol/L [facility] Blood specimen (specimen) 06/30/2018 11:33 AM EST 06/30/2018 11:33 AM EST Vipin Parker MD POINT OF CARE TEST O RDERABLES [facility] [place] [address] * Potassium (06/30/2018 9:36 AM EST) Potassium 4.8 3.5 - 5.0 mmol/L [facility] Comment: Please note: ??Patients with WBC >100,000 may have falsely elevated Potassium levels. ??For accurate Potassium quantification in these patients send serum separator tube (gold top) for subsequent determinations. ??Contact the Clinical Chemistry Laboratory if there are any questions. Blood specimen (specimen) 06/30/2018 9:36 AM EST 06/30/2018 10:12 AM EST Narrative Resulting Agency Comment Spec In Lab Vipin Parker MD CHEMISTRY ORDERABLES [facility] [place] [address] * XR Chest PA or AP 1 [...] report, please contact the number below. Vipin Parker MD IMG DX ORDERABLES * (ABNORMAL) Differential, Automated (06/30/2018 12:26 AM EST) Neutrophil % 79.8 % [facility] Neutrophil Absolute 8.69(H) 1.70 - 6.10 x10(3)/mc L [facility] Lymph % 12.1 % [facility] Lymphocytes Abs 1.3 0.9 - 3.2 x10(3)/mc L [facility] Monocyte % 3.9 % [facility] Monocyte Abs 0.4 0.3 - 0.9 x10(3)/mc L [facility] Eos % 2.4 % [facility] Eosinophils Abs 0.3 0.0 - 0.4 x10(3)/mc L [facility] Basophil % 0.6 % [facility] Baso Absolute 0.1 0.0 - 0.1 x10(3)/mc L [facility] Immature Gran % 1.20 % [facility] Comment: Immature granulocytes(IG's)percentage and absolute count will include metamyelocytes, myelocytes, and promyelocytes. Blood smears from CBCs yielding IG's will be scanned manually for concordance. If this scan disagrees with the automated IG or if promyelocytes are noted, a manual differential will be performed. Immature Gran Absolute 0.13(H) 0.00 - 0.04 x10(3)/mc L [facility] Blood specimen (specimen) 06/30/2018 12:26 AM EST 06/30/2018 12:31 AM EST Narrative Resulting Agency Comment Spec In Lab Wendy L Alan [employer] HEMATOLOGY ORDERAB LES [facility] [place] [address] * (ABNORMAL) Hemogram (06/30/2018 12:26 AM EST) White Blood Cell 10.9(H) 4.0 - 9.5 x10(3)/mc L [facility] Red Blood Cell 3.27(L) 4.00 - 5.21 x10(6)/mc L [facility] Hemoglobin 9.4(L) 11.7 - 15.5 gm/dL [facility] Hematocrit 30.4(L) 35.7 - 45.8 % [facility] Mean Cell Volume 93.0 82.6 - 94.4 fL [facility] Mean Cell Hemoglobin 28.7 27.1 - 32.0 pg [facility] Mean Cell Hemoglobin Concentration 30.9(L) 31.7 - 35.0 gm/dL [facility] Platelet 323 145 - 357 x10(3)/mc L [facility] RDW Standard Deviation 48.3(H) 37.0 - 46.0 fL [facility] RDW coefficient of variation 14.1 11.5 - 14.1 % [facility] Mean Platelet Volume 9.9 7.6 - 12.9 fL [facility] NRBC% auto 0.0 % [facility] NRBC Absolute 0.000 0.000 - 0.000 x10(3)/mc L [facility] Blood specimen (specimen) 06/30/2018 12:26 AM EST 06/30/2018 12:31 AM EST Narrative Resulting Agency Comment Spec In Lab Wendy Alan [employer] HEMATOLOGY ORDERAB LES Performing Organization Address [facility]/ZIP Co de Phone Number [facility] [place] [address] * Phosphorus (06/30/2018 12:26 AM EST) Phosphorus 3.7 2.5 - 4.5 mg/dL [facility] Blood specimen (specimen) 06/30/2018 12:26 AM EST 06/30/2018 12:31 AM EST Narrative Resulting Agency Comment Spec In Lab Wendy Alan [employer] CHEMISTRY ORDERABL ES Performing Organization Address [facility] de Phone Number [facility] [place] [address] * Magnesium (06/30/2018 12:26 AM EST) Magnesium 0.91 0.69 - 1.07 mmol/L [facility] Blood specimen (specimen) 06/30/2018 12:26 AM EST 06/30/2018 12:31 AM EST Narrative Resulting Agency Comment Spec In Lab Wendy Alan [employer] CHEMISTRY ORDERABL ES Performing Organization Address [facility] Co de Phone Number [facility] [place] [address] * (ABNORMAL) Basic Metabolic Panel (non-fasting) (06/30/2018 12:26 AM EST) Glucose 106 65 - 199 mg/dL [facility] Comment:Diabetes: >=200 mg/d L plus symptoms Blood Urea Nitrogen 15 8 - 18 mg/dL [facility] Creatinine 0.54(L) 0.70 - 1.20 mg/dL [facility] Sodium 138 135 - 145 mmol/L [facility] Potassium 3.8 3.5 - 5.0 mmol/L [facility] Comment: Please note: ??Patients with WBC >100,000 may have falsely elevated Potassium levels. ??For accurate Potassium quantification in these patients send serum separator tube (gold top) for subsequent determinations. ??Contact the Clinical Chemistry Laboratory if there are any questions. Chloride 101 98 - 107 mmol/L [facility] Carbon Dioxide 27 22 - 31 mmol/L [facility] Anion Gap 10 5 - 15 mmol/L [facility] Calcium 8.6 8.5 - 10.5 mg/dL [facility] Est Glomerular Filtration Rate 103 >=60 mL/min/1. 73 m?? [facility] Comment: The eGFR was calculated using the CKD-EPI equation. As with all creatinine based estimates of kidney function, eGFR values calculated with the CKD-EPI equation are not accurate in patients with acute kidney failure, extremes of body mass or the acutely ill. [email or web address] eGFR 119 >=60 mL/min/1. 73 m?? [facility] Comment: The eGFR was calculated using the CKD-EPI equation. As with all creatinine based estimates of kidney function, eGFR values calculated with the CKD-EPI equation are not accurate in patients with acute kidney failure, extremes of body mass or the acutely ill. [email or web address] Blood specimen (specimen) 06/30/2018 12:26 AM EST 06/30/2018 12:31 AM EST Narrative Resulting Agency Comment Spec In Lab Wendy Alan [employer] CHEMISTRY ORDERABL ES [facility] [place] [address] * Potassium (06/29/2018 10:28 AM EST) Potassium 4.2 3.5 - 5.0 mmol/L [facility] Comment: Please note: ??Patients with WBC >100,000 may have falsely elevated Potassium levels. ??For accurate Potassium quantification in these patients send serum separator tube (gold top) for subsequent determinations. ??Contact the Clinical Chemistry Laboratory if there are any questions. Blood specimen (specimen) 06/29/2018 10:28 AM EST 06/29/2018 10:34 AM EST Narrative Resulting Agency Comment Spec In Lab Catarino Yin [employer] CHEMISTRY ORDERA BLES [facility] [place] [address] * (ABNORMAL) BLOOD GAS 2 ARTERIAL (06/29/2018 6:12 AM EST) pH, Arterial 7.38 7.35 - 7.45 [facility] PCO2, Arterial 46(H) 35 - 45 mmHg [facility] PO2, Arterial 78(L) 85 - 104 mmHg [facility] Bicarbonate, Arterial 26.8(H) 20.0 - 26.0 mmol/L [facility] Base Excess, Arterial 1.7 -3.0 - 3.0 mmol/L [facility] Hgb Blood Gas 10.9(L) 11.7 - 15.5 gm/dL [facility] Oxyhemoglobin, Arterial 93.5(L) 94.0 - 97.0 % [facility] Carboxyhemoglob in, Arterial 0.5 % [facility] Comment: Nonsmokers: 0.5-1.5% COHB Smokers: Variable, but usually less than 10% Toxic: 20-30% COHB Lethal: Greater than 60% COHB Methemoglobin, Arterial 0.2 <=1.5 % [facility] Na Whole Blood 134(L) 135 - 145 mmol/L [facility] K Whole Blood 4.1 3.5 - 5.0 mmol/L [facility] Comment: Please note: Patients with WBC >100,000 may have falsely elevated Potassium levels. Contact the Clinical Chemistry Laboratory if there are any questions. ICa Whole Blood 1.16 1.15 - 1.33 mmol/L [facility] Comment: Note: ??Total bilirubin higher than 20 mg/dL may lead to falsely low ionized calcium. CL Whole Blood 101 98 - 107 mmol/L [facility] Gluc Whole Bld 89 65 - 199 mg/dL [facility] Comment:Diabetes: >=200 mg/d L plus symptoms. Lactate WB 1.0 0.5 - 2.2 mmol/L [facility] FIO2 Art 50 % [facility] PF Ratio Art 156 [facility] Blood specimen (specimen) 06/29/2018 6:12 AM EST 06/29/2018 6:12 AM EST Vipin Parker MD POINT OF CARE TEST O RDERABLES Performing Organization Address City/State/[facility] Co de Phone Number [facility] [place] [address] * (ABNORMAL) Differential, Automated (06/29/2018 12:40 AM EST) Neutrophil % 73.2 % [facility] Neutrophil Absolute 7.12(H) 1.70 - 6.10 x10(3)/mc L [facility] Lymph % 20.8 % [facility] Lymphocytes Abs 2.0 0.9 - 3.2 x10(3)/mc L [facility] Monocyte % 3.8 % [facility] Monocyte Abs 0.4 0.3 - 0.9 x10(3)/mc L [facility] Eos % 1.2 % [facility] Eosinophils Abs 0.1 0.0 - 0.4 x10(3)/mc L [facility] Basophil % 0.2 % [facility] Baso Absolute 0.0 0.0 - 0.1 x10(3)/ L [facility] Immature Gran % 0.80 % [facility] Comment: Immature granulocytes(IG's)percentage and absolute count will include metamyelocytes, myelocytes, and promyelocytes. Blood smears from CBCs yielding IG's will be scanned manually for concordance. If this scan disagrees with the automated IG or if promyelocytes are noted, a manual differential will be performed. Immature Gran Absolute 0.08(H) 0.00 - 0.04 x10(3)/ L [facility] Blood specimen (specimen) 06/29/2018 12:40 AM EST 06/29/2018 12:57 AM EST Narrative Resulting Agency Comment Spec In Lab Wendy Slaughter Alan [employer] HEMATOLOGY ORDERAB LES Performing Organization Address City/State/[facility] Co de Phone Number [facility] [place] [address] * (ABNORMAL) Hemogram (06/29/2018 12:40 AM EST) White Blood Cell 9.7(H) 4.0 - 9.5 x10(3)/[facility] Red Blood Cell 3.43(L) 4.00 - 5.21 x10(6)/ L [facility] Hemoglobin 9.8(L) 11.7 - 15.5 gm/dL [facility] Hematocrit 30.9(L) 35.7 - 45.8 % [facility] Mean Cell Volume 90.1 82.6 - 94.4 fL [facility] Mean Cell Hemoglobin 28.6 27.1 - 32.0 pg [facility] Mean Cell Hemoglobin Concentration 31.7 31.7 - 35.0 gm/dL [facility] Platelet 295 145 - 357 x10(3)/[facility] RDW Standard Deviation 45.3 37.0 - 46.0 fL [facility] RDW coefficient of variation 13.7 11.5 - 14.1 % [facility] Mean Platelet Volume 10.4 7.6 - 12.9 fL [facility] NRBC% auto 0.0 % [facility] NRBC Absolute 0.000 0.000 - 0.000 x10(3)/mc L [facility] Blood specimen (specimen) 06/29/2018 12:40 AM EST 06/29/2018 12:57 AM EST Narrative Resulting Agency Comment Spec In Lab Wendy Alan [employer] HEMATOLOGY ORDERAB LES Performing Organization Address [facility] de Phone Number [facility] [place] [address] * (ABNORMAL) Phosphorus (06/29/2018 12:40 AM EST) Phosphorus 4.7(H) 2.5 - 4.5 mg/dL [facility] Blood specimen (specimen) 06/29/2018 12:40 AM EST 06/29/2018 12:57 AM EST Narrative Resulting Agency Comment Spec In Lab Wendy Slaughter Alan [employer] CHEMISTRY ORDERABL ES Performing Organization Address [facility] Phone Number [facility] [place] [address] * Magnesium (06/29/2018 12:40 AM EST) Magnesium 0.97 0.69 - 1.07 mmol/L [facility] Blood specimen (specimen) 06/29/2018 12:40 AM EST 06/29/2018 12:57 AM EST Narrative Resulting Agency Comment Spec In Lab Wendy Alan [employer] CHEMISTRY ORDERABL ES Performing Organization Address [facility] Number [facility] [place] [address] * (ABNORMAL) Basic Metabolic Panel (non-fasting) (06/29/2018 12:40 AM EST) Glucose 99 65 - 199 mg/dL [facility] Comment:Diabetes: >=200 mg/d L plus symptoms Blood Urea Nitrogen 12 8 - 18 mg/dL [facility] Creatinine 0.46(L) 0.70 - 1.20 mg/dL [facility] Sodium 137 135 - 145 mmol/L [facility] Potassium 3.6 3.5 - 5.0 mmol/L [facility] Comment: Please note: ??Patients with WBC >100,000 may have falsely elevated Potassium levels. ??For accurate Potassium quantification in these patients send serum separator tube (gold top) for subsequent determinations. ??Contact the Clinical Chemistry Laboratory if there are any questions. Chloride 98 98 - 107 mmol/L [facility] Carbon Dioxide 27 22 - 31 mmol/L [facility] Anion Gap 12 5 - 15 mmol/L [facility] Calcium 8.6 8.5 - 10.5 mg/dL [facility] Est Glomerular Filtration Rate 108 >=60 mL/min/1. 73 m?? [facility] Comment: The eGFR was calculated using the CKD-EPI equation. As with all creatinine based estimates of kidney function, eGFR values calculated with the CKD-EPI equation are not accurate in patients with acute kidney failure, extremes of body mass or the acutely ill. [email or web address] eGFR 125 >=60 mL/min/1. 73 m?? [facility] Comment: The eGFR was calculated using the CKD-EPI equation. As with all creatinine based estimates of kidney function, eGFR values calculated with the CKD-EPI equation are not accurate in patients with acute kidney failure, extremes of body mass or the acutely ill. [email or web address] Blood specimen (specimen) 06/29/2018 12:40 AM EST 06/29/2018 12:57 AM EST Narrative Resulting Agency Comment Spec In Lab Wendy Alan [employer]ULT CHEMISTRY ORDERABL ES [facility] [place] [address] * (ABNORMAL) BLOOD GAS 2 ARTERIAL (06/28/2018 6:41 PM EST) pH, Arterial 7.38 7.35 - 7.45 [facility] PCO2, Arterial 44 35 - 45 mmHg [facility] PO2, Arterial 134(H) 85 - 104 mmHg [facility] Bicarbonate, Arterial 25.1 20.0 - 26.0 mmol/L [facility] Base Excess, Arterial -0.1 -3.0 - 3.0 mmol/L [facility] Hgb Blood Gas 11.2(L) 11.7 - 15.5 gm/dL [facility] Oxyhemoglobin, Arterial 97.7(H) 94.0 - 97.0 % [facility] Carboxyhemoglob in, Arterial 0.1 % [facility] Comment: Nonsmokers: 0.5-1.5% COHB Smokers: Variable, but usually less than 10% Toxic: 20-30% COHB Lethal: Greater than 60% COHB Methemoglobin, Arterial 0.2 <=1.5 % [facility] Na Whole Blood 133(L) 135 - 145 mmol/L [facility] K Whole Blood 3.7 3.5 - 5.0 mmol/L [facility] Comment: Please note: Patients with WBC >100,000 may have falsely elevated Potassium levels. Contact the Clinical Chemistry Laboratory if there are any questions. ICa Whole Blood 1.13(L) 1.15 - 1.33 mmol/L [facility] Comment: Note: ??Total bilirubin higher than 20 mg/dL may lead to falsely low ionized calcium. CL Whole Blood 99 98 - 107 mmol/L [facility] Gluc Whole Bld 104 65 - 199 mg/dL [facility] Comment:Diabetes: >=200 mg/d L plus symptoms. Lactate WB 1.0 0.5 - 2.2 mmol/L [facility] FIO2 Art 80 % [facility] PF Ratio Art 168 [facility] Blood specimen (specimen) 06/28/2018 6:41 PM EST 06/28/2018 6:41 PM EST Vipin Parker MD POINT OF CARE TEST O RDERABLES [facility] [place] [address] * (ABNORMAL) BLOOD GAS 2 ARTERIAL (06/28/2018 4:44 PM EST) pH, Arterial 7.33(L) 7.35 - 7.45 [facility] PCO2, Arterial 50(H) 35 - 45 mmHg [facility] PO2, Arterial 91 85 - 104 mmHg [facility] Bicarbonate, Arterial 25.8 20.0 - 26.0 mmol/L [facility] Base Excess, Arterial -0.2 -3.0 - 3.0 mmol/L [facility] Hgb Blood Gas 11.6(L) 11.7 - 15.5 gm/dL [facility] Oxyhemoglobin, Arterial 94.9 94.0 - 97.0 % [facility] Carboxyhemoglob in, Arterial 0.4 % [facility] Comment: Nonsmokers: 0.5-1.5% COHB Smokers: Variable, but usually less than 10% Toxic: 20-30% COHB Lethal: Greater than 60% COHB Methemoglobin, Arterial 0.2 <=1.5 % [facility] Na Whole Blood 131(L) 135 - 145 mmol/L [facility] K Whole Blood 3.9 3.5 - 5.0 mmol/L [facility] Comment: Please note: Patients with WBC >100,000 may have falsely elevated Potassium levels. Contact the Clinical Chemistry Laboratory if there are any questions. ICa Whole Blood 1.10(L) 1.15 - 1.33 mmol/L [facility] Comment: Note: ??Total bilirubin higher than 20 mg/dL may lead to falsely low ionized calcium. CL Whole Blood 97(L) 98 - 107 mmol/L [facility] Gluc Whole Bld 107 65 - 199 mg/dL [facility] Comment:Diabetes: >=200 mg/d L plus symptoms. Lactate WB 1.4 0.5 - 2.2 mmol/L [facility] FIO2 Art 100 % [facility] PF Ratio Art 91 [facility] Blood specimen (specimen) 06/28/2018 4:44 PM EST 06/28/2018 4:44 PM EST Vipin Parker MD POINT OF CARE TEST O ARVIND [facility] [place] [address] * XR Chest PA or AP 1 [...] please contact the number below. ? Narrative 06/28/2018 4:59 PM EST EXAMINATION: XR [...] report, please contact the number below. Vipin Parker MD IMG DX ORDERABLES * Insert Arterial Line (06/28/2018 3:37 PM EST) Narrative Vipin Parker MD - 06/28/2018 3:37 PM EST Vipin Parker MD ? 06/28/2018 ??3:38 PM Arterial Line [...] the planned procedure. ?? Hand Hygiene: The blockmason did perform hand hygiene prior to arterial [...] Good wave form. Procedure Comments: none Vipin Parker MD PROCEDURE/MINOR SURG ICAL ORDERABLES * Potassium (06/28/2018 10:45 AM EST) Pathologist [facility] [facility] Potassium 4.2 3.5 - 5.0 mmol/L [facility] Comment: Please note: ??Patients with WBC >100,000 may have falsely elevated Potassium levels. ??For accurate Potassium quantification in these patients send serum separator tube (gold top) for subsequent determinations. ??Contact the Clinical Chemistry Laboratory if there are any questions. Blood specimen (specimen) 06/28/2018 10:45 AM EST 06/28/2018 11:00 AM EST Narrative Resulting Agency Comment Spec In Lab Catarino Yin [employer] CHEMISTRY ORDERA BLES [facility] [place] [address] * Differential, Automated (06/28/2018 5:00 AM EST) Neutrophil % 79.0 % [facility] Neutrophil Absolute 5.70 1.70 - 6.10 x10(3)/[facility] Lymph % 15.7 % [facility] Lymphocytes Abs 1.1 0.9 - 3.2 x10(3)/[facility] LABORATORY Monocyte % 3.9 % [facility] Monocyte Abs 0.3 0.3 - 0.9 x10(3)/[facility] Eos % 0.7 % [facility] Eosinophils Abs 0.0 0.0 - 0.4 x10(3)/[facility] Basophil % 0.1 % [facility] Baso Absolute 0.0 0.0 - 0.1 x10(3)/[facility]ORY Immature Gran % 0.60 % [facility] Comment: Immature granulocytes(IG's)percentage and absolute count will include metamyelocytes, myelocytes, and promyelocytes. Blood smears from CBCs yielding IG's will be scanned manually for concordance. If this scan disagrees with the automated IG or if promyelocytes are noted, a manual differential will be performed. Immature Gran Absolute 0.04 0.00 - 0.04 x10(3)/[facility] Blood specimen (specimen) 06/28/2018 5:00 AM EST 06/28/2018 5:25 AM EST Narrative Resulting Agency Comment Spec In Lab Wendy Alan [employer] HEMATOLOGY ORDERAB LES [facility] [place] [address] * (ABNORMAL) Hemogram (06/28/2018 5:00 AM EST) [facility] White Blood Cell 7.2 4.0 - 9.5 x10(3)/mc L [facility] Red Blood Cell 3.35(L) 4.00 - 5.21 x10(6)/ L [facility] Hemoglobin 10.0(L) 11.7 - 15.5 gm/dL [facility] Hematocrit 29.6(L) 35.7 - 45.8 % [facility] Mean Cell Volume 88.4 82.6 - 94.4 fL [facility] Mean Cell Hemoglobin 29.9 27.1 - 32.0 pg [facility] Mean Cell Hemoglobin Concentration 33.8 31.7 - 35.0 gm/dL [facility] Platelet 233 145 - 357 x10(3)/mc L [facility] RDW Standard Deviation 43.5 37.0 - 46.0 fL [facility] RDW coefficient of variation 13.4 11.5 - 14.1 % [facility] Mean Platelet Volume 10.9 7.6 - 12.9 fL [facility] NRBC% auto 0.0 % [facility] NRBC Absolute 0.000 0.000 - 0.000 x10(3)/mc L [facility] Blood specimen (specimen) 06/28/2018 5:00 AM EST 06/28/2018 5:25 AM EST Narrative Resulting Agency Comment Spec In Lab Wendy Slaughter Dayanna [employer] HEMATOLOGY ORDERAB LES Performing Organization Address City/[facility]/ZIP Co de Phone Number [facility] [place] [address] * Phosphorus (06/28/2018 5:00 AM EST) Phosphorus 3.1 2.5 - 4.5 mg/dL [facility] Blood specimen (specimen) 06/28/2018 5:00 AM EST 06/28/2018 5:25 AM EST Narrative Resulting Agency Comment Spec In Lab Wendy Slaughter Dayanna [employer] CHEMISTRY ORDERABL ES Performing Organization Address City/[facility]/ZIP Co de Phone Number [facility] [place] [address] * Magnesium (06/28/2018 5:00 AM EST) Magnesium 0.88 0.69 - 1.07 mmol/L [facility] Blood specimen (specimen) 06/28/2018 5:00 AM EST 06/28/2018 5:25 AM EST Narrative Resulting Agency Comment Spec In Lab Wendy Alan [employer] CHEMISTRY ORDERABL ES [facility] [place] [address] * (ABNORMAL) Basic Metabolic Panel (non-fasting) (06/28/2018 5:00 AM EST) Glucose 97 65 - 199 mg/dL [facility] Comment:Diabetes: >=200 mg/d L plus symptoms Blood Urea Nitrogen 11 8 - 18 mg/dL [facility] Creatinine 0.53(L) 0.70 - 1.20 mg/dL [facility] Sodium 130(L) 135 - 145 mmol/L [facility] Potassium 3.9 3.5 - 5.0 mmol/L [facility] Comment: Please note: ??Patients with WBC >100,000 may have falsely elevated Potassium levels. ??For accurate Potassium quantification in these patients send serum separator tube (gold top) for subsequent determinations. ??Contact the Clinical Chemistry Laboratory if there are any questions. Chloride 91(L) 98 - 107 mmol/L [facility] Carbon Dioxide 26 22 - 31 mmol/L [facility] Anion Gap 13 5 - 15 mmol/L [facility] Calcium 8.4(L) 8.5 - 10.5 mg/dL [facility] Est Glomerular Filtration Rate 103 >=60 mL/min/1. 73 m?? [facility] Comment: The eGFR was calculated using the CKD-EPI equation. As with all creatinine based estimates of kidney function, eGFR values calculated with the CKD-EPI equation are not accurate in patients with acute kidney failure, extremes of body mass or the acutely ill. [email or web address] eGFR 120 >=60 mL/min/1. 73 m?? [facility] Comment: The eGFR was calculated using the CKD-EPI equation. As with all creatinine based estimates of kidney function, eGFR values calculated with the CKD-EPI equation are not accurate in patients with acute kidney failure, extremes of body mass or the acutely ill. [email or web address] Blood specimen (specimen) 06/28/2018 5:00 AM EST 06/28/2018 5:25 AM EST Narrative Resulting Agency Comment Spec In Lab Wendy Alan APRN CHEMISTRY ORDERABL ES Performing Organization Address [facility] Phone Number [facility] [place] [place] [address] * POCT Glucose (06/27/2018 6:34 PM EST) Glucose, POC 103 65 - 199 mg/dL [facility] Comment: Supplemental ranges: <140 mg/dL before meals <180 mg/dL all other times of the day Blood specimen (specimen) 06/27/2018 6:34 PM EST 06/27/2018 6:34 PM EST Vipin Parker MD POINT OF CARE TEST O RDERAZORAIDA Performing Organization Address [facility] [place] Phone Number [facility] [place] [address] * POCT Glucose (06/27/2018 11:31 AM EST) Glucose, POC 105 65 - 199 mg/dL [facility] Comment: Supplemental ranges: <140 mg/dL before meals <180 mg/dL all other times of the day Blood specimen (specimen) 06/27/2018 11:31 AM EST 06/27/2018 11:31 AM EST Vipin Parker MD POINT OF CARE TEST O RDERAZORAIDA Performing Organization Address [facility] Co de Phone Number [facility] [place] [address] * POCT Glucose (06/27/2018 7:38 AM EST) [facility] Glucose, POC 112 65 - 199 mg/dL [facility] Comment: Supplemental ranges: <140 mg/dL before meals <180 mg/dL all other times of the day Blood specimen (specimen) 06/27/2018 7:38 AM EST 06/27/2018 7:38 AM EST Ernesto Arauz MD POINT OF CARE TEST O RDERABLES [facility] [place] [address] * Scan, Peripheral Blood (06/27/2018 5:10 AM EST) [facility] Plat estimate Decreased [facility] RBC Morphology Normal [facility] Blood specimen (specimen) 06/27/2018 5:10 AM EST 06/27/2018 5:23 AM EST Narrative Resulting Agency Comment Spec In Lab Wendy Alan APRN HEMATOLOGY ORDERAB LES Performing Organization Address City/[facility]/ZIP Co de Phone Number [facility] [place] [address] * (ABNORMAL) Differential, Automated (06/27/2018 5:10 AM EST) [facility] Neutrophil % 85.7 % [facility] Neutrophil Absolute 6.04 1.70 - 6.10 x10(3)/mc L [facility] Lymph % 10.8 % [facility] Lymphocytes Abs 0.8(L) 0.9 - 3.2 x10(3)/mc L [facility] Monocyte % 2.7 % [facility] Monocyte Abs 0.2(L) 0.3 - 0.9 x10(3)/mc L [facility] Eos % 0.0 % [facility] Eosinophils Abs 0.0 0.0 - 0.4 x10(3)/[facility] Basophil % 0.1 % [facility] Baso Absolute 0.0 0.0 - 0.1 x10(3)/[facility] Immature Gran % 0.70 % [facility] Comment: Immature granulocytes(IG's)percentage and absolute count will include metamyelocytes, myelocytes, and promyelocytes. Blood smears from CBCs yielding IG's will be scanned manually for concordance. If this scan disagrees with the automated IG or if promyelocytes are noted, a manual differential will be performed. Immature Gran Absolute 0.05(H) 0.00 - 0.04 x10(3)/[facility] Blood specimen (specimen) 06/27/2018 5:10 AM EST 06/27/2018 5:23 AM EST Narrative Resulting Agency Comment Spec In Lab Wendy Aaln [employer] HEMATOLOGY ORDERAB LES [facility] [place] [address] * (ABNORMAL) Hemogram (06/27/2018 5:10 AM EST) White Blood Cell 7.0 4.0 - 9.5 x10(3)/[facility] Red Blood Cell 3.60(L) 4.00 - 5.21 x10(6)/[facility] Hemoglobin 10.5(L) 11.7 - 15.5 gm/dL [facility] Hematocrit 31.4(L) 35.7 - 45.8 % [facility] Mean Cell Volume 87.2 82.6 - 94.4 fL [facility] Mean Cell Hemoglobin 29.2 27.1 - 32.0 pg [facility] Mean Cell Hemoglobin Concentration 33.4 31.7 - 35.0 gm/dL [facility] Platelet 204 145 - 357 x10(3)/mc L [facility] RDW Standard Deviation 42.3 37.0 - 46.0 fL [facility] RDW coefficient of variation 13.2 11.5 - 14.1 % [facility] Mean Platelet Volume 10.7 7.6 - 12.9 fL [facility] NRBC% auto 0.0 % [facility] NRBC Absolute 0.000 0.000 - 0.000 x10(3)/mc L [facility] Blood specimen (specimen) 06/27/2018 5:10 AM EST 06/27/2018 5:23 AM EST Narrative Resulting Agency Comment Spec In Lab Wendy Alan [employer] HEMATOLOGY ORDERAB LES Performing Organization Address [facility] [place] [address] * Phosphorus (06/27/2018 5:10 AM EST) Phosphorus 3.6 2.5 - 4.5 mg/dL [facility] Blood specimen (specimen) 06/27/2018 5:10 AM EST 06/27/2018 5:23 AM EST Narrative Resulting Agency Comment Spec In Lab Wendy Alan [employer] CHEMISTRY ORDERABL ES Performing Organization Address [facility] Co de Phone Number [facility] [place] [address] * Magnesium (06/27/2018 5:10 AM EST) Magnesium 0.85 0.69 - 1.07 mmol/L [facility] Blood specimen (specimen) 06/27/2018 5:10 AM EST 06/27/2018 5:23 AM EST Narrative Resulting Agency Comment Spec In Lab Wendy Alan [employer] CHEMISTRY ORDERABL ES Performing Organization Address [facility] Co de Phone Number [facility] [place] [address] * (ABNORMAL) Basic Metabolic Panel (non-fasting) (06/27/2018 5:10 AM EST) Glucose 111 65 - 199 mg/dL [facility] Comment:Diabetes: >=200 mg/d L plus symptoms Blood Urea Nitrogen 11 8 - 18 mg/dL [facility] Creatinine 0.66(L) 0.70 - 1.20 mg/dL [facility] Sodium 129(L) 135 - 145 mmol/L [facility] Potassium 3.7 3.5 - 5.0 mmol/L [facility] Comment: Please note: ??Patients with WBC >100,000 may have falsely elevated Potassium levels. ??For accurate Potassium quantification in these patients send serum separator tube (gold top) for subsequent determinations. ??Contact the Clinical Chemistry Laboratory if there are any questions. Chloride 91(L) 98 - 107 mmol/L [facility] Carbon Dioxide 25 22 - 31 mmol/L [facility] Anion Gap 13 5 - 15 mmol/L [facility] Calcium 8.3(L) 8.5 - 10.5 mg/dL [facility] Est Glomerular Filtration Rate 96 >=60 mL/min/1. 73 m?? [facility] Comment: The eGFR was calculated using the CKD-EPI equation. As with all creatinine based estimates of kidney function, eGFR values calculated with the CKD-EPI equation are not accurate in patients with acute kidney failure, extremes of body mass or the acutely ill. [email or web address] eGFR 111 >=60 mL/min/1. 73 m?? [facility] Comment: The eGFR was calculated using the CKD-EPI equation. As with all creatinine based estimates of kidney function, eGFR values calculated with the CKD-EPI equation are not accurate in patients with acute kidney failure, extremes of body mass or the acutely ill. [email or web address] [email or web address] Blood specimen (specimen) 06/27/2018 5:10 AM EST 06/27/2018 5:23 AM EST Narrative Resulting Agency Comment Spec In Lab Wendy Alan APRN CHEMISTRY ORDERABL ES Performing Organization Address [facility] Co de Phone Number [facility] [place] [address] * POCT Glucose (06/27/2018 5:02 AM EST) Glucose, POC 115 65 - 199 mg/dL [facility] Comment: Supplemental ranges: <140 mg/dL before meals <180 mg/dL all other times of the day Blood specimen (specimen) 06/27/2018 5:02 AM EST 06/27/2018 5:02 AM EST Ernesto Arauz MD POINT OF CARE TEST O RDERAZORAIDA Performing Organization Address [facility] de Phone Number [facility] [place] [address] * POCT Glucose (06/26/2018 11:14 PM EST) Glucose, POC 121 65 - 199 mg/dL [facility] Comment: Supplemental ranges: <140 mg/dL before meals <180 mg/dL all other times of the day Blood specimen (specimen) 06/26/2018 11:14 PM EST 06/26/2018 11:14 PM EST Ernesto Arauz MD POINT OF CARE TEST O ARVIND Performing Organization Address [facility] Co de Phone Number [facility] [place] [address] * POCT Glucose (06/26/2018 8:23 PM EST) Glucose, POC 160 65 - 199 mg/dL [facility] Comment: Supplemental ranges: <140 mg/dL before meals <180 mg/dL all other times of the day Blood specimen (specimen) 06/26/2018 8:23 PM EST 06/26/2018 8:23 PM EST Ernesto Arauz MD POINT OF CARE TEST O RDERABLES [facility] [place] [address] * (ABNORMAL) BLOOD GAS 2 ARTERIAL (06/26/2018 6:33 PM EST) pH, Arterial 7.52(H) 7.35 - 7.45 [facility] PCO2, Arterial 31(L) 35 - 45 mmHg [facility] PO2, Arterial 59(L) 85 - 104 mmHg [facility] Bicarbonate, Arterial 24.4 20.0 - 26.0 mmol/L [facility] Base Excess, Arterial 1.5 -3.0 - 3.0 mmol/L [facility] Hgb Blood Gas 11.6(L) 11.7 - 15.5 gm/dL [facility] Oxyhemoglobin, Arterial 90.9(L) 94.0 - 97.0 % [facility] Carboxyhemoglob in, Arterial 0.7 % [facility] Comment: Nonsmokers: 0.5-1.5% COHB Smokers: Variable, but usually less than 10% Toxic: 20-30% COHB Lethal: Greater than 60% COHB Methemoglobin, Arterial 0.5 <=1.5 % [facility] Na Whole Blood 125(L) 135 - 145 mmol/L [facility] K Whole Blood 3.9 3.5 - 5.0 mmol/L [facility] Comment: Please note: Patients with WBC >100,000 may have falsely elevated Potassium levels. Contact the Clinical Chemistry Laboratory if there are any questions. ICa Whole Blood 1.05(L) 1.15 - 1.33 mmol/L [facility] Comment: Note: ??Total bilirubin higher than 20 mg/dL may lead to falsely low ionized calcium. CL Whole Blood 93(L) 98 - 107 mmol/L [facility] Gluc Whole Bld 127 65 - 199 mg/dL [facility] Comment:Diabetes: >=200 mg/d L plus symptoms. Lactate WB 1.3 0.5 - 2.2 mmol/L [facility] FIO2 Art 45 % [facility] PF Ratio Art 131 [facility] Blood specimen (specimen) 06/26/2018 6:33 PM EST 06/26/2018 6:33 PM EST Ernesto Arauz MD POINT OF CARE TEST O ARVIND Performing Organization Address [facility] de Phone Number [facility] [place] [address] * POCT Glucose (06/26/2018 5:06 PM EST) Glucose, POC 133 65 - 199 mg/dL [facility] Comment: Supplemental ranges: <140 mg/dL before meals <180 mg/dL all other times of the day Blood specimen (specimen) 06/26/2018 5:06 PM EST 06/26/2018 5:06 PM EST Ernesto Arauz MD POINT OF CARE TEST O ARVIND Performing Organization Address [facility] de Phone Number [facility] [place] [address] * XR Chest PA or AP 1 view (06/26/2018 2:48 PM EST) Anatomical Region Laterality Modality Chest N/A Digital Radiogra phy Impressions 06/26/2018 2:56 PM EST Extensive bilateral pulmonary infiltrates similar to the studies of earlier the same day Thank you for letting us participate in the care of this patient. For questions regarding this report, please contact the number below. ? Narrative 06/26/2018 2:56 PM EST EXAMINATION: XR [...] please contact the number below. Wendy Alan [employer] IMG DX ORDERABLES * Urine culture Indwelling Catheter Urine (06/26/2018 12:26 PM EST) Urine Culture No growth (Less than 1,000 cfu/ml). [facility] Urine specimen (specimen) 06/26/2018 12:26 PM EST 06/26/2018 1:46 PM EST Narrative Resulting Agency Comment Spec In Lab Wendy Alan APRN MICROBIOLOGY - GEN ERAL ORDERABLES Performing Organization Address City/[facility]/ZIP Co de Phone Number [facility] [place] [address] * Urine Hold (06/26/2018 12:25 PM EST) Hold, Urine Sample in lab. [facility] Urine specimen (specimen) Urine / Unknown 06/26/2018 12:25 PM EST 06/26/2018 12:53 PM EST Wendy Alan APRN URINE ORDERABLES Performing Organization Address [facility] Co de Phone Number [facility] [place] [address] * Legionella Urinary Antigen (06/26/2018 12:25 PM EST) Pathologist [facility] Legionella Urinary Antigen Negative Negative [facility] Comment: A negative Legionella Urinary Antigen [...] - GEN ERAL ORDERABLES Performing Organization Address [facility] Co de Phone Number [facility] [place] [address] * (ABNORMAL) Respiratory Panel PCR (06/26/2018 11:40 AM EST) Pathologist [facility] Respiratory Panel Source [employer] Swab [facility] Respiratory Panel PCR Positive(A) Negative [facility] Comment: Respiratory Panels are performed on the [employer], using multiplexed PCR nucleic acid detection. ??Negative results do not preclude respiratory infection and should not be used as the sole basis for diagnosis, treatment or other management decisions. Adenovirus Not Detected Not Detected [facility] Coronavirus HKU1 Not Detected Not Detected [facility] Coronavirus NL63 Not Detected Not Detected [facility] Coronavirus 229E Not Detected Not Detected [facility] Coronavirus OC43 Not Detected Not Detected [facility] Human Metapneumovirus Not Detected Not Detected [facility] Human Rhinovirus/Enterov irus Not Detected Not Detected [facility] Influenza A Detected(A) Not Detected [facility] Influenza A H1 Not Detected Not Detected [facility] Influenza A H1-2009 Detected(A) Not Detected [facility] Influenza A H3 Not Detected Not Detected [facility] Influenza B Not Detected Not Detected [facility] Parainfluenza 1 Not Detected Not Detected [facility] Parainfluenza 2 Not Detected Not Detected [facility] Parainfluenza 3 Not Detected Not Detected [facility] Parainfluenza 4 Not Detected Not Detected [facility] Respiratory Syncytial Virus Not Detected Not Detected [facility] Chlamydophila pneumoniae Not Detected Not Detected [facility] Mycoplasma pneumoniae Not Detected Not Detected [facility] Nasopharyngeal swab (specimen) 06/26/2018 11:40 AM EST 06/26/2018 12:04 PM EST Narrative Resulting Agency Comment Spec In Lab Wendy L Dayanna BROWN MICROBIOLOGY - GEN ERAL ORDERABLES Performing Organization Address City/State/[facility] Co de Phone Number [facility] [place] [address] * EKG 12 Lead (06/26/2018 11:25 AM EST) Ventricular rate 84 BPM MUSE SYSTEM Atrial Rate 84 BPM MUSE SYSTEM P-R Interval 134 ms MUSE SYSTEM QRS Duration 140 ms MUSE SYSTEM Q-T Interval 398 ms MUSE SYSTEM QTC Calculated (Bezet) 470 ms MUSE SYSTEM Calculated P Keeler 53 degrees MUSE SYSTEM Calculated R Keeler 32 degrees MUSE SYSTEM Calculated T Keeler 52 degrees MUSE SYSTEM INTERPRETATION Normal sinus rhythm Left bundle branch block Abnormal ECG No previous ECGs available Confirmed by MD Freddy, Jesus Wei ([id number]) on 06/26/2018 1:10:58 PM MUSE SYSTEM 06/26/2018 11:2 5 AM EST 06/26/2018 1:10 PM EST Wendy Alan [employer] ECG ORDERABLES MUSE SYSTEM * (ABNORMAL) BLOOD GAS 2 ARTERIAL (06/26/2018 11:08 AM EST) pH, Arterial 7.46(H) 7.35 - 7.45 [facility] PCO2, Arterial 35 35 - 45 mmHg [facility] PO2, Arterial 47(Critica l) 85 - 104 mmHg [facility] Bicarbonate, Arterial 24.4 20.0 - 26.0 mmol/L [facility] Base Excess, Arterial 0.5 -3.0 - 3.0 mmol/L [facility] Hgb Blood Gas 11.4(L) 11.7 - 15.5 gm/dL [facility] Oxyhemoglobin, Arterial 82.6(L) 94.0 - 97.0 % [facility] Carboxyhemoglob in, Arterial 0.6 % [facility] Comment: Nonsmokers: 0.5-1.5% COHB Smokers: Variable, but usually less than 10% Toxic: 20-30% COHB Lethal: Greater than 60% COHB Methemoglobin, Arterial 0.5 <=1.5 % [facility] Na Whole Blood 124(L) 135 - 145 mmol/L [facility] K Whole Blood 3.7 3.5 - 5.0 mmol/L [facility] Comment: Please note: Patients with WBC >100,000 may have falsely elevated Potassium levels. Contact the Clinical Chemistry Laboratory if there are any questions. ICa Whole Blood 1.06(L) 1.15 - 1.33 mmol/L [facility] Comment: Note: ??Total bilirubin higher than 20 mg/dL may lead to falsely low ionized calcium. CL Whole Blood 93(L) 98 - 107 mmol/L [facility] Gluc Whole Bld 129 65 - 199 mg/dL [facility] Comment:Diabetes: >=200 mg/d L plus symptoms. Lactate WB 1.0 0.5 - 2.2 mmol/L [facility] FIO2 Art 100 % [facility] PF Ratio Art 47 [facility] Blood specimen (specimen) 06/26/2018 11:08 AM EST 06/26/2018 11:08 AM EST Ernesto Arauz MD POINT OF CARE TEST O RDERABLES Performing Organization Address [facility]/ZIP Co de Phone Number [facility] [place] [place] [address] * Gold Tube HOLD (06/26/2018 11:05 AM EST) Pathologist [facility] Gold Hold Sample in lab. [facility] Blood specimen (specimen) Venous Draw / Unknown 06/26/2018 11:05 AM EST 06/26/2018 11:26 AM EST Wendy Alan APRN CHEMISTRY ORDERABL ES Performing Organization Address [facility] Co de Phone Number [facility] [place] [address] * (ABNORMAL) Differential, Automated (06/26/2018 11:05 AM EST) Neutrophil % 89.8 % [facility] Neutrophil Absolute 8.10(H) 1.70 - 6.10 x10(3)/mc L [facility] Lymph % 7.4 % [facility] Lymphocytes Abs 0.7(L) 0.9 - 3.2 x10(3)/mc L [facility] Monocyte % 1.9 % [facility] Monocyte Abs 0.2(L) 0.3 - 0.9 x10(3)/mc L [facility] Eos % 0.0 % [facility] Eosinophils Abs 0.0 0.0 - 0.4 x10(3)/[facility] Basophil % 0.2 % [facility] Baso Absolute 0.0 0.0 - 0.1 x10(3)/[facility] Immature Gran % 0.70 % [facility] Comment: Immature granulocytes(IG's)percentage and absolute count will include metamyelocytes, myelocytes, and promyelocytes. Blood smears from CBCs yielding IG's will be scanned manually for concordance. If this scan disagrees with the automated IG or if promyelocytes are noted, a manual differential will be performed. Immature Gran Absolute 0.06(H) 0.00 - 0.04 x10(3)/[facility] Blood specimen (specimen) 06/26/2018 11:05 AM EST 06/26/2018 11:25 AM EST Narrative Resulting Agency Comment Spec In Lab Wendy Kasandra Alan SUPERVISOR SECURITIES VAULT HEMATOLOGY ORDERAB LES Performing Organization Address City/State/[facility] Co de Phone Number [facility] [place] [address] * (ABNORMAL) Hemogram (06/26/2018 11:05 AM EST) White Blood Cell 9.0 4.0 - 9.5 x10(3)/[facility] Red Blood Cell 3.66(L) 4.00 - 5.21 x10(6)/[facility] Hemoglobin 10.9(L) 11.7 - 15.5 gm/dL [facility] Hematocrit 32.0(L) 35.7 - 45.8 % [facility] Mean Cell Volume 87.4 82.6 - 94.4 fL [facility] Mean Cell Hemoglobin 29.8 27.1 - 32.0 pg [facility] Mean Cell Hemoglobin Concentration 34.1 31.7 - 35.0 gm/dL [facility] Platelet 185 145 - 357 x10(3)/mc L [facility] RDW Standard Deviation 41.7 37.0 - 46.0 fL [facility] RDW coefficient of variation 12.9 11.5 - 14.1 % [facility] Mean Platelet Volume 10.8 7.6 - 12.9 [facility] NRBC% auto 0.0 % [facility] NRBC Absolute 0.000 0.000 - 0.000 x10(3)/mc L [facility] Blood specimen (specimen) 06/26/2018 11:05 AM EST 06/26/2018 11:25 AM EST Narrative Resulting Agency Comment Spec In Lab Wendy Alan SUPERVISOR SECURITIES VAULT HEMATOLOGY ORDERAB LES Performing Organization Address [facility]/[place] [address] * (ABNORMAL) Hepatic Function Panel (06/26/2018 11:05 AM EST) Protein, Total 6.4 6.1 - 8.0 gm/dL [facility] Albumin 2.8(L) 3.2 - 5.2 gm/dL [facility] Aspartate Aminotransferase 34(H) 0 - 30 unit/L [facility] Alanine Aminotransferase 13 0 - 30 unit/L [facility] Alkaline Phosphatase 74 40 - 104 unit/L [facility] Bilirubin, Total 0.4 0.2 - 1.3 mg/dL [facility] Bilirubin, Direct 0.1 0.0 - 0.3 mg/dL [facility] Blood specimen (specimen) 06/26/2018 11:05 AM EST 06/26/2018 11:25 AM EST Narrative Resulting Agency Comment Spec In Lab Wendy Alan SUPERVISOR SECURITIES VAULT CHEMISTRY ORDERABL ES Performing Organization Address City/[facility]/ZIP Co de Phone Number [facility] [place] [address] * Blood culture (06/26/2018 11:05 AM EST) Blood Culture No growth at 5 days. [facility] Blood specimen (specimen) STRUCTURE OF RIGHT FOREARM / Unknown 06/26/2018 11:05 AM EST 06/26/2018 12:06 PM EST Narrative Resulting Agency Comment Spec In Lab Wendy Slaughter Dayanna SUPERVISOR SECURITIES VAULT MICROBIOLOGY - BLO OD ORDERABLES Performing Organization Address [facility]/ZIP Co de Phone Number [facility] [place] [address] * Phosphorus (06/26/2018 11:05 AM EST) Phosphorus 4.2 2.5 - 4.5 mg/dL [facility] Blood specimen (specimen) 06/26/2018 11:05 AM EST 06/26/2018 11:25 AM EST Narrative Resulting Agency Comment Spec In Lab Wendy Slaughter Dayanna SUPERVISOR SECURITIES VAULT CHEMISTRY ORDERABL ES Performing Organization Address [facility] Co de Phone Number [facility] [place] [address] * Magnesium (06/26/2018 11:05 AM EST) Magnesium 0.78 0.69 - 1.07 mmol/L [facility] Blood specimen (specimen) 06/26/2018 11:05 AM EST 06/26/2018 11:25 AM EST Narrative Resulting Agency Comment Spec In Lab Wendy Slaughter Dayanna SUPERVISOR SECURITIES VAULT CHEMISTRY ORDERABL ES Performing Organization Address [facility] Co de Phone Number [facility] [place] [address] * (ABNORMAL) Basic Metabolic Panel (non-fasting) (06/26/2018 11:05 AM EST) Glucose 127 65 - 199 mg/dL [facility] Comment:Diabetes: >=200 mg/d L plus symptoms Blood Urea Nitrogen 14 8 - 18 mg/dL [facility] Creatinine 0.77 0.70 - 1.20 mg/dL [facility] Sodium 128(L) 135 - 145 mmol/L [facility] Potassium 4.0 3.5 - 5.0 mmol/L [facility] Comment: Please note: ??Patients with WBC >100,000 may have falsely elevated Potassium levels. ??For accurate Potassium quantification in these patients send serum separator tube (gold top) for subsequent determinations. ??Contact the Clinical Chemistry Laboratory if there are any questions. Chloride 89(L) 98 - 107 mmol/L [facility] Carbon Dioxide 24 22 - 31 mmol/L [facility] Anion Gap 15 5 - 15 mmol/L [facility] Calcium 8.3(L) 8.5 - 10.5 mg/dL [facility] Est Glomerular Filtration Rate 84 >=60 mL/min/1. 73 m?? [facility] Comment: The eGFR was calculated using the CKD-EPI equation. As with all creatinine based estimates of kidney function, eGFR values calculated with the CKD-EPI equation are not accurate in patients with acute kidney failure, extremes of body mass or the acutely ill. [email or web address] eGFR 97 >=60 mL/min/1. 73 m?? [facility] Comment: The eGFR was calculated using the CKD-EPI equation. As with all creatinine based estimates of kidney function, eGFR values calculated with the CKD-EPI equation are not accurate in patients with acute kidney failure, extremes of body mass or the acutely ill. [email or web address] Blood specimen (specimen) 06/26/2018 11:05 AM EST 06/26/2018 11:25 AM EST Narrative Resulting Agency Comment Spec In Lab Wendy Alan SUPERVISOR SECURITIES VAULT CHEMISTRY ORDERABL ES [facility] [place] [address] * (ABNORMAL) Prothrombin Time (06/26/2018 11:05 AM EST) Prothrombin Time 16.3(H) 9.4 - 12.5 sec [facility] International Normalization Ratio 1.4 [facility] Comment: An INR <2.0 indicates [...] APRN HEMATOLOGY ORDERAB LES Performing Organization Address City/[facility]/ZIP Co de Phone Number [facility] [place] [address] * Lactate, whole blood, send to lab (Leb/CGP) (06/26/2018 11:05 AM EST) Lactate WB 1.4 0.5 - 2.2 mmol/L [facility] Blood specimen (specimen) 06/26/2018 11:05 AM EST 06/26/2018 11:24 AM EST Narrative Resulting Agency Comment Spec In Lab Wendy Alan APRN CHEMISTRY ORDERABL ES Performing Organization Address City/[facility]/ZIP Co de Phone Number [facility] [place] [address] documented in this encounter Visit Diagnoses Diagnosis [...] Intravenous, EVERY 24 HOURS, First dose on Wed06/30/18 at 0000, Until Discontinued, Administer over 60 Minutes, Indication for (Active or Suspected): Pneumonia ([facility]) New Bag 06/30/2018 12:43 AM EST 500 mg 255.1 mL/hr azithromycin (ZITHROMAX) tablet 500 mg 500 mg, Oral, NIGHTLY, First dose on Wed06/30/18 at 2100, Until Discontinued, Routine, Indication for [...] restart at 50% of previous rate. Call housekeeping assistant if goal not achieved at maximum rate., Routine, Please indicate the name & specialty of the Attending Provider who authorized the use of this medication: vipin parker Rate/Dose Change 07/06/2018 12:27 PM EST 0.4 [...] 50 mcg/mL infusion 1 dose, Starting on Wed06/28/18 at 1521, Until Wed06/28/18 at 1553, Kelsie Chapman: cabinet override fentaNYL 50 mcg/mL infusion 0-200 mcg/hr (0-4 mL/hr), Intravenous, CONTINUOUS, Starting on Wed06/28/18 at 1600, Until Dyan 06/30/18 at 1617, [...] PRN, Starting on Wed06/28/18 at 1531, Until Wed06/30/18 at 1617, Pain, Refer to infusion order for Bolus instructions. Reassess pain 15 minutes after bolus given., Routine Bolus from Bag 06/29/2018 10:35 AM EST 100 mcg Bolus from Bag 06/28/2018 4:32 PM EST 100 mcg Bolus from Bag 06/28/2018 3:59 PM EST 100 mcg fentaNYL bolus from bag 25-100 mcg 25-100 mcg, Intravenous, EVERY 15 MIN PRN, Starting on Wed06/30/18 at 1616, Until Wed07/05/18 at 1058, Pain, [...] 1435, Until Wed06/28/18 at 1445, Kelsie Chapman: tank override ketamine (KETALAR) injection 200 mg 200 [...] tube, EVERY 4 HOURS PRN, Starting on Wed07/04/18 at 0203, Until Dyan 07/07/18 at 1437, [...] at 1512, Until Wed06/28/18 at 1530, Kelsie Chapman.: cabinet override propofol (DIPRIVAN) infusion 0-50 mcg/kg/min [...] restart at 50% of previous rate. Call housekeeping assistant if goal not achieved at maximum rate., [...] on Wed07/04/18 at 0900, Until Discontinued, Routine 0821 (Given - Provider: Kenya Owens, MIKIE)2019 (Given - Provider: Haydee Guardado RN) 08 (Given - Provider: Cherelle Becerril, MIKIE)2141 (Given - Provider: Reid Vick, MIKIE) 08 (Given - Provider: Jocelyn Laurent, MIKIE) miconazole (MICOTIN) 2 % powder Topical (Top), 2 TIMES DAILY, First dose on Wed07/06/18 at 2100, Until Discontinued 08 (Not Given - Provider: Kenya Owens RN - Reason: Patient/family refused)2019 (Not Given - Provider: Haydee Guardado RN - Reason: Patient/family refused) 08 (Not Given - Provider: Cherelle Becerril RN - Reason: Patient/family refused)2099 (Not Given - Provider: Reid Vick RN - Reason: Patient/family refused) 09 (Not Given - Provider: Jocelyn Laurent RN - Reason: Patient/family refused) sertraline (ZOLOFT) tablet 100 mg 100 mg, Oral, NIGHTLY, First dose (after last modification) on 06/26/18 at 2300, Until Discontinued, Routine 2200 (Given - Provider: Haydee Guardado RN) 2141 (Given - Provider: Reid Vick, MIKIE)2300 (Canceled Entry - Provider: Reid Vick RN - Reason: Patient/family refused) sodium chloride 0.9 % flush 5 mL 5 mL, Intravenous, EVERY 12 HOURS, First dose on 06/26/18 at 1100, Until Discontinued, Routine 0920 (Given - Provider: Kenya Owens, MIKIE)2019 (Given - Provider: Haydee Guardado RN) 08 (Given - Provider: Cherelle Becerril RN)2099 (Given - Provider: Reid Vick RN) 0835 (Given - Provider: Jocelyn Laurent, MIKIE) white petrolatum-mineral oil ophthalmic ointment Both Eyes, 2 TIMES DAILY, First dose on Wed06/30/18 at 2100, Until Discontinued 0825 (Not Given - Provider: Kenya Owens, MIKIE - Reason: Patient/family refused)2019 (Not Given - Provider: Haydee Guardado, MIKIE - Reason: Patient/family refused) 0850 (Not Given - Provider: Cherelle Becerril RN - Reason: Patient/family refused)2148 (Not Given - Provider: Reid Vick, MIKIE - Reason: Patient/family refused) 0900 (Not Given [...] PRN, Starting on Wed07/06/18 at 1333, Until Dyan 07/14/18 at 1600, Wheezing, Routine lidocaine (XYLOCAINE) 10 mg/mL (1 %) injection 3 mg 3 mg (0.3 mL), Subcutaneous, ONCE PRN, 1 dose, Starting on 06/26/18 at 1034, Until Dyan 07/14/18 at 1600, for discomfort with PIV insertion, Routine senna-docusate (PERICOLACE) 8.6-50 mg per tablet 1 tablet 1 tablet, Oral, 2 TIMES DAILY PRN, Starting on Dyan 07/07/18 at 1446, Until Dyan 07/14/18 at 1600, Constipation, Routine sodium chloride 0.9 % flush 5-20 mL 5-20 mL, Intravenous, EVERY 1 MIN PRN, Starting on 06/26/18 at 1034, Until Dyan 07/14/18 at 1600, flush, Flush pertains to all indwelling lines. Flush per protocol found in the job aid using the link provided on this medication record., Routine documented in this encounter Additional Health Concerns Infection Onset Date Last Indicated Resolved Time INFLUENZA 06/26/2018 06/26/2018 07/14/2018 2:00 PM EST documented as of this encounter Care Teams Enrobing Machine Operator Relationship Specialty Start Date End Date Catalina Barroso APRN PCP - General Family Medicine 05/20/18 08/23/18 documented as of this encounter
--- OUTSIDE RECORDS SUMMARY | 2024-06-05 14:05 | XMS_ITS | Encounter Summary ---
Author Organization [facility] Address [facility] [place] [address] Care Team Providers Care Clamp Remover Name Role Phone Catalina Barroso APRN Primary Care Provider [phone] Reason for Visit * Reason Comments Advice Only Encounter Details Date Type Department Care Team (Late st Contact Info) Description 06/07/2018 1:00 PM EST Office Visit Dermatology at [address] [address] Howard Hammer MD [facility] [address] [facility] [place] [address] Isael Eddy RN Encounter for cosmetic procedure Social History Tobacco Use Types Packs/Day Years Used Date Smoking Tobacco: Never Smokeless Tobacco: Never Sex and Gender Information Value Date Recorded Sex Assigned at Not on file Gender Identity Not on file Sexual Orientation Not on file documented as of this encounter Progress Notes * Howard Hammer MD - 06/07/2018 1:00 PM EST DERMATOLOGY BUSINESS PERFORMANCE MANAGER NOTE Date of service: 06/07/2018 Yara [...] skincare regimen: regimen or products: Exfoliating Cleanser, Korean, Complexion Renewal Pads reviewed by:ALYSHA date: 06/07/2018 [...] yes COST: no charge NOTES: Isael Eddy Distribution Field Technician documented in this encounter Plan of Treatment Upcoming Encounters Date Type Department Care Team (Late st Contact Info) Description 06/12/2024 11:15 AM EST Office Visit [facility] [place] [address] Catherine Harley, STEPHANIE [facility] [place] [address] documented as of this encounter Visit Diagnoses Diagnosis Encounter for cosmetic procedure documented in this encounter Care Teams Clamp Remover Relationship Specialty Start Date End Date Catalina Barroso APRN PCP - General Family Medicine 05/20/18 08/23/18 documented as of this encounter
--- OUTSIDE RECORDS SUMMARY | 2024-06-05 14:05 | XMS_ITS | Encounter Summary ---
Author Organization [facility] [place] [address] Care Team Providers Care Industrial Gas Service Helper Name Role Phone Catalina Barroso APRN Primary Care Provider [phone] Encounter Details Date Type Department Care Team (Late st Contact Info) Description 06/26/2018 [place] [address] Roderick Hughes MD Social History Tobacco Use Types Packs/Day [...] Office Visit [place] [address] Catherine Harley APRN [facility] [place] [address] documented as of this encounter Visit Diagnoses Not on filedocumented in this encounter Care Teams Industrial Gas Service Helper Relationship Specialty Start Date End Date Catalina Barroso APRN PCP - General Family Medicine 05/20/18 08/23/18 documented as of this encounter
--- OUTSIDE RECORDS SUMMARY | 2024-06-05 14:05 | XMS_ITS | Encounter Summary ---
Author Organization [facility] [place] [address] Care Team Providers Care Mathematics Instructor Name Role Phone Catalina Barroso APRN Primary Care Provider Encounter Details Date Type Department Care Team (Late st Contact Info) Description 06/26/2018 8:15 AM EST Ancillary Procedure Radiology Library at [facility] [place] [address] Carlin Lo MD [facility] [place] [address] Social History Tobacco Use Types Packs/Day Years [...] Office Visit [facility] at [facility] [place] [address] Catherine Harley SHOEMAKING FINISHER [facility] [address] documented as of this encounter Procedures Procedure Name Priority Date/Time Associated Diagnosis Comments FILM LIBRARY STORAGE ONLY CT CHEST Routine 06/26/2018 8:13 AM EST documented in this encounter Results * Film Library- Storage Only CT Chest (06/26/2018 8:13 AM EST) Narrative HERLINDA LOPEZ - 06/26/2018 8:13 AM EST This exam is for storage only and is auto-finalizing. Carlin Lo MD IMG FILM LIBRARY ORD ERABLES [place], [place] documented in this encounter Visit Diagnoses Not on filedocumented in this encounter Care Teams Mathematics Instructor Relationship Specialty Start Date End Date Catalina Barroso APRN PCP - General Family Medicine 05/20/18 08/23/18 documented as of this encounter
--- OUTSIDE RECORDS SUMMARY | 2024-06-05 14:05 | XMS_ITS | Encounter Summary ---
Author Organization [facility] [place] [address] Care Team Providers Care [employer] Name Role Phone Unavailable Primary Care Provider Unavailabl e Encounter Details Date Type Department Care Team (Late st Contact Info) Description 03/18/2010 - 03/18/2010 11:59 PM EDT Hospital Encounter Radiology Library at [facility] [place] [address] [facility] Dis[facility] Disposition: Home Social History [...] Office Visit [facility] at [facility] [place] [address] Catherine Harley APRN [facility] [place] [address] documented as of this encounter Procedures Procedure Name Priority Date/Time Associated Diagnosis Comments FILM LIBRARY STORAGE ONLY MAMMO Routine 03/18/2010 12:00 AM EDT Screening documented in this encounter Results * Film Library- Storage only Mammo (03/18/2010 12:00 AM EDT) Narrative HERLINDA LOPEZ - 10/08/2015 12:26 AM EDT This exam is for storage only and is auto-finalizing. [facility] FILM LIBRARY ORD ERABLES [place], [place] documented in this encounter Visit Diagnoses Diagnosis Screening Screening for unspecified condition documented in this encounter
--- OUTSIDE RECORDS SUMMARY | 2024-06-05 14:05 | XMS_ITS | Encounter Summary ---
Author Organization [facility] [place] [address] Care Team Providers Care Choir Accompanist Name Role Phone Catalina Barroso APRN Primary Care Provider [phone] Encounter Details Date Type Department Care Team (Late st Contact Info) Description 06/26/2018 External Results [place] [address] Social History Tobacco Use Types Packs/Day Years [...] Office Visit [facility] [place] [address] Catherine Harley APRN [facility] [place] [address] documented as of this encounter Procedures Procedure Name Priority Date/Time Associated Diagnosis Comments ECG SCAN Routine 06/26/2018 documented in this encounter Results * Scan Doc: ECG (06/26/2018) Historical Provider MD MUNOZ MGR SCAN EX T ORDR/RSLT documented in this encounter Visit Diagnoses Not on filedocumented in this encounter Care Teams Choir Accompanist Relationship Specialty Start Date End Date Catalina Barroso APRN PCP - General Family Medicine 05/20/18 08/23/18 documented as of this encounter
--- OUTSIDE RECORDS SUMMARY | 2024-06-05 14:05 | XMS_ITS | Encounter Summary ---
Author Organization [facility] [place] [address] Care Team Providers Care Portfolio Assistant Name Role Phone Leland Echavarria DNP Primary Care Provider [phone] Encounter Details Date Type Department Care Team (Late st Contact Info) Description 05/26/2014 Interpretation Only Radiology [address] [place] [address] [place] [address] Unknown None Social History Tobacco Use Types [...] [facility] [place] [address] Catherine Harley, SPINNERET PERSON [facility] [place] [address] documented as of this encounter Procedures Procedure Name Priority Date/Time Associated Diagnosis Comments XR NASAL BONES Routine 05/26/2014 7:47 PM EST documented in this encounter Results * XR Nasal Bones (Generic) (05/26/2014 7:47 PM EST) Anatomical Region Laterality Modality Head N/A Radiographic Madhavi ging 05/26/2014 7:47 PM EST Narrative 05/26/2014 7:47 PM EST APD Historical Result Principal Ground Nuclear Weapons Assembly Officer: ??KAYLI ??ROSMERY NASAL BONES - THREE VIEWS: CLINICAL HISTORY: ??Facial injury. ??Nasal surgery 2 years ago. ??Deviated septum. No definite fracture is identified. IMPRESSION: No definite fracture is identified. Kayli Botello MD Andre [id number] ([facility] 05/28/14) CC: Procedure Note Unknown - 11/28/2018 APD Historical Result Principal Ground Nuclear Weapons Assembly Officer: KAYLI BOTELLO NASAL BONES - THREE VIEWS: CLINICAL HISTORY: Facial injury. Nasal surgery 2 years ago. Deviatedseptum. No definite fracture is identified. IMPRESSION: No definite fracture is identified. Kayli Botello MD Andre [id number] ([facility] 05/28/14) CC: Unknown IMG DX ORDERABLES documented in this encounter Visit Diagnoses Not on filedocumented in this encounter Care Teams Portfolio Assistant Relationship Specialty Start Date End Date Leland Echavarira DNP [address] [place] [address] PCP - General Family Medicine 08/24/18 04/20/24 documented as of this encounter
--- OUTSIDE RECORDS SUMMARY | 2024-06-05 14:05 | XMS_ITS | Encounter Summary ---
Author Organization [facility] [place] [address] Care Team Providers Care Metalsmith Name Role Phone Catalina Barroso APRN Primary Care Provider Encounter Details Date Type Department Care Team (Late st Contact Info) Description 06/26/2018 8:20 AM EST Ancillary Procedure Radiology Library at [facility] [place] [address] Carlin Lo MD [facility] [place] [address] Social History Tobacco Use Types Packs/Day Years [...] Office Visit [facility] [place] [address] Catherine Harley MORTGAGE ORIGINATOR [facility] [place] [address] documented as of this encounter Procedures Procedure Name Priority Date/Time Associated Diagnosis Comments FILM LIBRARY STORAGE ONLY DX CHEST Routine 06/26/2018 8:14 AM EST documented in this encounter Results * Film Library- Storage Only DX Chest (06/26/2018 8:14 AM EST) Narrative HERLINDA LOPEZ - 06/26/2018 8:14 AM EST This exam is for storage only and is auto-finalizing. Cariln Lo MD IMG FILM LIBRARY ORD ERABLES [place], [place] documented in this encounter Visit Diagnoses Not on filedocumented in this encounter Care Teams Metalsmith Relationship Specialty Start Date End Date Catalina Barroso APRN PCP - General Family Medicine 05/20/18 08/23/18 documented as of this encounter
--- OUTSIDE RECORDS SUMMARY | 2024-06-05 14:06 | XMS_ITS | Encounter Summary ---
Author Organization [facility] Address [address] [place] [address] Care Team Providers Care Fish Egg Packer Name Role Phone Lucy Brock NP Primary Care Provider [phone] Encounter Details Date Type Department Care Team (Latest Contact Info) Description 03/14/2018 14:01 EDT - 03/14/2018 23:59 EDT Hospital Encounter [facility] - [address] [address] Unknown, Provider, MD Discharge Disposition: Home or Self Care Social History Tobacco Use Types Packs/Day Years Used Date Smoking Tobacco: Never Assessed Comments Unknown Sex and Gender Information Value Date Recorded Sex Assigned at Not on file Legal Sex Female 18:35 EST Gender Identity Not on file Sexual Orientation Not on file documented as of this encounter Discharge Disposition Disposition Code Departure Means Destination Home or Self Penitentiary documented in this encounter Plan of Treatment Not on file documented as of this encounter Visit Diagnoses Not on filedocumented in this encounter Care Teams Fish Egg Packer Relationship Specialty Start Date End Date Lucy Brock NP [address] [place] [address] [address] [place] [phone] PCP - General 04/05/15 03/21/18 documented as of this encounter
--- OUTSIDE RECORDS SUMMARY | 2024-06-05 14:06 | XMS_ITS | Clinical Summary ---
Author Organization [facility] Address [address] [place] [address] Care Team Providers Care Digital Marketing Analyst Name Role Phone Catalina Barroso APRN Primary Care Provider [phone] Social History Tobacco Use Types Packs/Day Years Used Date Smoking Tobacco: Never Assessed Interpersonal Safety Answer Date Record ed Physically Hurt Never 12/31/2019 Verbally Threaten Not on file 12/31/2019 Comments Unknown Sex and Gender Information Value Date Recorded Sex Assigned at Not on file Legal Sex Female 18:35 EST Gender Identity Not on file Sexual Orientation Not on file Plan of Treatment Health Maintenance Due Date Last Done Comments Hepatitis C Screen 1960 Fall Risk Screening 2023 COVID-19 Vaccine (2023-25 season) 2024 RSV Immunization ( o r 60+ Years) (1 - 1-dose 75+ series) 2033 Insurance [employer] Care Teams Digital Marketing Analyst Relationship Specialty Start Date End Date Catalina Barroso APRN [address] [place] [address] PCP - General 03/22/18
--- OUTSIDE RECORDS SUMMARY | 2024-06-05 14:06 | XMS_ITS | Encounter Summary ---
Author Organization [facility] Address [address] [place] [address] Care Team Providers Care Photography And Prints Curator Name Role Phone Catalina Barroso AVID EDITOR Primary Care Provider [phone] Encounter Details Date Type Department Care Team (Late st Contact Info) Description 10/05/2020 Lab Requisition [facility] Pathology & Laboratory Medicine - [facility] [address] [place] [address] Leland Patel, [facility] [address] [place] [place] [address] Disorder of the skin and subcutaneous tissue, [...] - Seborrheic keratosis, inflamed. 10/08/2020 9:57 EDT [facility] Attestation By the signature below, the attending physician certifies that they have 1) personally conducted a gross and/or microscopic examination of the described specimen(s), and/or personally interpreted the results of laboratory testing of the described specimen(s), and 2) personally rendered or confirmed the above diagnosis. 10/08/2020 9:57 [facility] at 0957 Clinical History Skin lesion; clinical diagnosis code: L98.9 10/08/2020 9:57 T [facility] Gross Description A. Received in formalin labelled with proper patient identification (initials B, D) and medial back is a rubbery dusky anton nodular skin lesion, 0.6 x 0.5 x 0.3 cm. The surface of the lesion shows a verrucous pattern. The margin is inked. Bisected and entirely submitted in A1. KORI MOE(ASCP) 10/07/2020 10:03 10/08/2020 9:57 EDT [facility] Performing Lab [facility] 10/08/2020 9:57 T [facility] Scanned Images 10/08/2020 9:57 [facility] Tissue TISSUE SPECIMEN FROM SKIN / Unknown 10/04/2020 13:35 EDT 10/05/2020 10:05 EDT us Leland Echavarria DNP PATHOLOGY ORDERABLES Rehana vaz Result [facility] [address] [place] [address] documented in this encounter Visit Diagnoses Diagnosis Disorder of the skin and subcutaneous tissue, unspecified documented in this encounter Care Teams Photography And Prints Curator Relationship Specialty Start Date End Date Catalina Barroso APRN [address] [place] [address] PCP - General 03/22/18 documented as of this encounter
--- OUTSIDE RECORDS SUMMARY | 2024-06-05 14:06 | XMS_ITS | Encounter Summary ---
Author Organization [facility] Address [address] [place] [address] Care Team Providers Care Financial Management Name Role Phone Lucy Brock NP Primary Care Provider Encounter Details Date Type Department Care Team (Late st Contact Info) Description 10/03/2015 Results Only [facility] [phone] Catalina Hall APRN [address] [place], [place] [address] Social History Tobacco Use Types Packs/Day Years [...] ? YARA ZHENG ? Accession #: ? [id number] ? : ? 1960 (Age: 55) ??F [...] 33,35,39,45,51,52, 56,58,59,66, and 68 is detected by knit goods washer mediated amplification. High and intermediate risk HPV [...] confirmed the above diagnosis. End of Report [facility] 10/03/2015 10/04/2015 us Catalina Hall PHYSICAL EDUCATION AIDE PATHOLOGY ORDERABLES Final Re sult [facility] [address] [place] [address] documented in this encounter Visit Diagnoses Not on filedocumented in this encounter Care Teams Financial Management Relationship Specialty Start Date End Date Lucy Brock NP [address] [place] [address] [address] [place] [id number] PCP - General 04/05/15 03/21/18 documented as of this encounter
--- OUTSIDE RECORDS SUMMARY | 2024-06-05 14:06 | XMS_ITS | Encounter Summary ---
Author Organization [facility] Address [address] [place] [address] Care Team Providers Care Primary Montessori Teacher Name Role Phone Unavailable Primary Care Provider Unavailabl e Encounter Details Date Type Department Care Team (Late st Contact Info) Description 08/10/2005 Results Only [facility] - Maple conversion [address] [place] [address] Daniel Hernandez, BLADIMIR [address] [place] [address] Social History Tobacco Use Types [...] ? YARA ZHENG ? Accession #: ? [id number] : ? 1960 (Age: 45) ??F ?Collect Date: ? 08/10/2005 Location: ? [facility] ? Receive Date: ? 08/12/2005 Provider: ?DANIEL HERNANDEZ DATA STEWARD Copy to: ? Specimen/Source: ?ThinPrep Pap Test, Cervix/Endocervix, processed on Adeze ThinPrep Imaging System, with manual evaluation Last [...] End of Report [facility] 08/10/2005 08/12/2005 us Daniel Hernandez DATA STEWARD PATHOLOGY ORDERABLES Final R esult [facility] [address] [place] [address] documented in this encounter Visit Diagnoses Not on filedocumented in this encounter
--- OUTSIDE RECORDS SUMMARY | 2024-06-05 14:06 | XMS_ITS | Encounter Summary ---
Author Organization [facility] [place] [address] Care Team Providers Care Food Crops Farm Hand Name Role Phone Unavailable Primary Care Provider Unavailabl e Encounter Details Date Type Department Care Team (Late st Contact Info) Description 01/03/2007 - 01/03/2007 11:59 PM EDT Hospital Encounter Radiology Library [place] [address] [facility] Discharge Disposition: Home Social [...] [facility] [place] [address] Catherine Harley APRN [facility] PAIN [place] [address] documented as of this encounter Procedures Procedure Name Priority Date/Time Associated Diagnosis Comments FILM LIBRARY STORAGE ONLY MAMMO Routine 01/03/2007 12:00 AM EDT Screening documented in this encounter Results * Film Library- Storage only Mammo (01/03/2007 12:00 AM EDT) Narrative HERLINDA LOPEZ - 10/08/2015 12:29 AM EDT This exam is for storage only and is auto-finalizing. [facility] ORD ERABLES [place], [place] documented in this encounter Visit Diagnoses Diagnosis Screening Screening for unspecified condition documented in this encounter
--- OUTSIDE RECORDS SUMMARY | 2024-06-05 14:06 | XMS_ITS | Encounter Summary ---
Author Organization [facility] Address [address] [place] [address] Care Team Providers Care Junior Technical Writer Name Role Phone Lucy Brock NP Primary Care Provider Encounter Details Date Type Department Care Team (Late st Contact Info) Description 02/15/2017 Results Only [facility] [phone] Catalina Hall APRN [address] [place], [place] [address] Social History Tobacco Use Types Packs/Day Years [...] ? YARA ZHENG ? Accession #: ? [id number] ? : ? 1960 (Age: 56) ??F ?Collect Date: ? 02/15/2017 ? Location: ? [facility] ? Receive Date: ? 02/17/2017 ? Provider: CATALINA HALL APRN Copy to: ? Final Report SPECIMEN ADEQUACY ? Satisfactory for Evaluation - transformation zone component present GENERAL CATEGORIZATION ? Epithelial Cell Abnormality INTERPRETATION ? Squamous Cell Abnormality - Atypical squamous cells, undetermined significance (ASC-US). EDUCATIONAL NOTES/RECOMMENDAT IONS ? [facility] recommends following ASCCP's 2012 Updated Consensus [...] types 16,18,31,33,35, 39,45,51,52,56,58 ,59,66, and 68 by truck repair service estimator mediated amplification. Comments Document reviewed and electronically signed by: ? System Interface ? Report date: 02/26/2017 By the signature above, the attending physician certifies that he/she has personally conducted a gross and/or microscopic examination of the described specimens and rendered or confirmed the above diagnosis. End of Report [facility] 02/15/2017 02/17/2017 us Catalina Hall FIRESTOPPER TECHNICIAN PATHOLOGY ORDERABLES Final Re sult [facility] [address] [place] [address] documented in this encounter Visit Diagnoses Not on filedocumented in this encounter Care Teams Junior Technical Writer Relationship Specialty Start Date End Date Lucy Brock NP [address] [place] [address] PCP - General 04/05/15 03/21/18 documented as of this encounter
--- OUTSIDE RECORDS SUMMARY | 2024-06-05 14:06 | XMS_ITS | Encounter Summary ---
Author Organization [facility] [place] [address] Care Team Providers Care Perinatal Director Name Role Phone Unavailable Primary Care Provider Unavailabl e Encounter Details Date Type Department Care Team (Late st Contact Info) Description 08/15/2009 - 08/15/2009 11:59 PM EDT Hospital Encounter Radiology Library at [facility] [place] [address] [facility] Tem[facility] Screening Discharge Disposition: Home Social [...] Office Visit [facility] and Sp[facility] at [facility] [place] [address] Catherine Harley APRN [facility] PAIN [place] [address] documented as of this encounter Procedures Procedure Name Priority Date/Time Associated Diagnosis Comments FILM LIBRARY STORAGE ONLY MAMMO Routine 08/15/2009 12:00 AM EDT Screening documented in this encounter Results * Film Library- Storage only Mammo (08/15/2009 12:00 AM EDT) Narrative HERLINDA LOPEZ - 10/08/2015 12:28 AM EDT This exam is for storage only and is auto-finalizing. [facility] FILM LIBRARY ORD ERABLES JOHN [place], [place] documented in this encounter Visit Diagnoses Diagnosis Screening Screening for unspecified condition documented in this encounter
--- OUTSIDE RECORDS SUMMARY | 2024-06-05 14:06 | XMS_ITS | Encounter Summary ---
Author Organization [facility] Address [address] [place] [address] Care Team Providers Care Unmanned Aircraft Systems Roboticist Name Role Phone Lucy Brock NP Primary Care Provider Encounter Details Date Type Department Care Team (Late st Contact Info) Description 03/14/2018 Results Only [facility] [phone] Shanice Ibrahim MD [address] [place], [place] [id number] Social History Tobacco Use Types Packs/Day Years [...] ? YARA ZHENG ? Accession #: ? [id number] ? : ? 1960 (Age: 57) ??F ? Collect Date: ? 03/14/2018 ? Location: ? [facility] ? Receive Date: ? 03/14/2018 ? Provider: SHANICE IBRAHIM MD Copy to: ABIGAIL HALL DETECTIVE NARCOTICS AND VICE ? Final Pathologic Diagnosis: COLON, SIGMOID, POLYP, [...] cm). Entirely submitted in 1 and 2. Mijoann [place] 03/15/2018 9:05 AM End of Report [facility] 03/14/2018 8:33 EDT 03/14/2018 8:33 EDT us Shanice Ibrahim MD PATHOLOGY ORDERABLES Fin al Result [facility] [address] [place] [address] documented in this encounter Visit Diagnoses Not on filedocumented in this encounter Care Teams Unmanned Aircraft Systems Roboticist Relationship Specialty Start Date End Date Lucy Brock NP [address] [place] [address] PCP - General 04/05/15 03/21/18 documented as of this encounter
--- OUTSIDE RECORDS SUMMARY | 2024-06-05 14:06 | XMS_ITS | Encounter Summary ---
Author Organization [facility] Address [address] [place] [address] Care Team Providers Care Candy Catcher Name Role Phone Unavailable Primary Care Provider Unavailabl e Encounter Details Date Type Department Care Team (Late st Contact Info) Description 06/04/2009 Orders Only [facility] Laboratory Services - [facility] ([facility] [address] [place] [address] Daniel Hernandez, BLADIMIR [address] [place] [address] Social History Tobacco Use Types [...] 18:58 ? End of Report ? [facility] MUNOZ 06/04/2009 06/05/2009 us Daniel Hernandez QUILL PICKING MACHINE OPERATOR PATHOLOGY ORDERABLES Final R esult [facility] [address] [place] [address] documented in this encounter Visit Diagnoses Not on filedocumented in this encounter
--- OUTSIDE RECORDS SUMMARY | 2024-06-05 14:06 | XMS_ITS | Encounter Summary ---
Author Organization [facility] Address [address] [place] [address] Care Team Providers Care Green Building Energy Engineer Name Role Phone Unavailable Primary Care Provider Unavailabl e Encounter Details Date Type Department Care Team (Late st Contact Info) Description 07/07/2004 Results Only [facility] - Maple conversion [address] [place] [address] Daniel Hernandez, BLADIMIR [address] [place] [address] Social History Tobacco Use [...] ? YARA ZHENG ? Accession #: ? [id number] : ? 1960 (Age: 44) ??F ?Collect Date: ? 07/07/2004 Location: ? [facility] ? Receive Date: ? 07/09/2004 Provider: ?DANIEL HERNANDEZ CORK MOLDER Copy to: ? Specimen/Source: ?ThinPrep Pap Test, [...] End of Report BETH MUNOZ 07/07/2004 07/09/2004 us Daniel Hernandez NP PATHOLOGY ORDERABLES Final R esult [facility] [address] [place] [address] documented in this encounter Visit Diagnoses Not on filedocumented in this encounter
--- OUTSIDE RECORDS SUMMARY | 2024-06-05 14:06 | XMS_ITS | Encounter Summary ---
Author Organization [facility] Address [address] [place] [address] Care Team Providers Care Special Needs Librarian Name Role Phone Unavailable Primary Care Provider Unavailabl e Encounter Details Date Type Department Care Team (Late st Contact Info) Description 08/18/2010 Results Only [facility] Laboratory Services - [facility] [address] [place] [address] Daniel Hernandez, BLADIMIR [address] [place] [address] Social History Tobacco Use Types [...] ? YARA ZHENG ? Accession #: ? [id number] ? : ? 1960 (Age: 50) ??F ?Collect Date: ? 08/18/2010 ? Location: ? [facility] ? Receive Date: ? 08/19/2010 ? Provider: DANIEL HERNANDEZ MARKETING SENIOR RECRUITER ? Copy to: ? Final Report ? [...] of Report ? [facility]OZ 08/18/2010 08/19/2010 us Daniel Hernandez MARKETING SENIOR RECRUITER PATHOLOGY ORDERABLES Final R esult [facility] [address] [place] [address] documented in this encounter Visit Diagnoses Not on filedocumented in this encounter
--- OUTSIDE RECORDS SUMMARY | 2024-06-05 14:06 | XMS_ITS | Referral Summary ---
Author Organization [facility] Address [address] [place] [address] Care Team Providers Care Crop And Soil Scientist Name Role Phone Dharmesh Catalina BROWN Primary Care Provider [phone] Social History Tobacco Use Types Packs/Day Years [...] file Plan of Treatment Not on file Insurance [employer] Care Teams Crop And Soil Scientist Relationship Specialty Start Date End Date Catalina Barroso APRN [address] [place] [address] PCP - General 03/22/18
--- OUTSIDE RECORDS SUMMARY | 2024-06-05 14:06 | XMS_ITS | Encounter Summary ---
Author Organization [facility] Address [address] [place] [address] Care Team Providers Care Boom Truck Driver Name Role Phone Unavailable Primary Care Provider Unavailabl e Encounter Details Date Type Department Care Team (Late st Contact Info) Description 01/03/2008 Before PRISM Converted Visit (Maple) [facility] - Maple conversion [address] [place] [address] Daniel Hernandez, BLADIMIR [address] [place] [address] Social History Tobacco Use Types [...] ? YARA ZHENG ? Accession #: ? [id number] ? : ? 1960 (Age: 47) ??F [...] reviewed and electronically signed by: ? Marie Ortiz, CT(ASCP) ? Report Date: ??01/05/2008 12:34 ? End of Report ? [facility] 01/03/2008 01/03/2008 us Daniel Hernandez NP PATHOLOGY ORDERABLES Final R esult [facility] [address] [place] [address] documented in this encounter Visit Diagnoses Not on filedocumented in this encounter
--- OUTSIDE RECORDS SUMMARY | 2024-06-05 14:06 | XMS_ITS | Encounter Summary ---
Author Organization [facility] Address [address] [place] [address] Care Team Providers Care Curing Oven Attendant Name Role Phone Unavailable Primary Care Provider Unavailabl e Encounter Details Date Type Department Care Team (Late st Contact Info) Description 09/29/2011 Results Only [facility] Laboratory Services - [facility] ([facility]) [address] [place] [address] Daniel Hernandez, BLADIMIR [address] [place] [address] Social History Tobacco Use Types [...] ? YARA ZHENG ? Accession #: ? [id number] ? : ? 1960 (Age: 51) ??F ?Collect Date: ? 09/29/2011 ? Location: ? [facility] ? Receive Date: ? 09/30/2011 ? Provider: DANIEL HERNANDEZ PRODUCER ASSISTANT Copy to: ? Final Report SPECIMEN ADEQUACY [...] types 16,18,31,33,35, 39,45,51,52,56,58, 59,66, and 68 by cobol developer mediated amplification. Comments Document reviewed and electronically signed by: ? System Interface ? Report date: 10/07/2011 By the signature above, the attending physician certifies that he/she has personally conducted a gross and/or microscopic examination of the described specimens and rendered or confirmed the above diagnosis. End of Report [facility] 09/29/2011 09/30/2011 us Daniel Hernandez NP PATHOLOGY ORDERABLES Final R esult [facility] [address] [place] [address] documented in this encounter Visit Diagnoses Not on filedocumented in this encounter
--- OUTSIDE RECORDS SUMMARY | 2024-06-05 14:06 | XMS_ITS | Encounter Summary ---
Author Organization [facility] Address [address] [place] [address] Care Team Providers Care Chair Trimmer Name Role Phone Unavailable Primary Care Provider Unavailabl e Encounter Details Date Type Department Care Team (Late st Contact Info) Description 06/25/2008 Before PRISM Converted Visit (Maple) [facility] - Maple conversion [address] [place] [address] Albert Jasso MD [address] [place] [id number] Social History Tobacco Use Types Packs/Day Years [...] ? YARA ZHENG ? Accession #: ? [id number] ? : ? 1960 (Age: 48) ??F ? Collect Date: ? 06/25/2008 ? Location: ? [facility] ? Receive Date: ? 06/25/2008 ? Provider: ALBERT JASSO MD ? Copy to: DANIEL HERNANDEZ WRAPPER OFF ? Final Pathologic Diagnosis: ? A. ?Nasal [...] reviewed and electronically signed by: ? [place] MD ? Report ??Date: 06/28/2008 14:29 ? [...] Mazariegos)/kina ? End of Report ? [facility]ETH MUNOZ 06/25/2008 06/25/2008 16: 39 EST us Albert Jasso MD PATHOLOGY ORDERABLES Final Resul t [facility] [address] [place] [address] documented in this encounter Visit Diagnoses Not on filedocumented in this encounter
--- OUTSIDE RECORDS SUMMARY | 2024-06-05 14:06 | XMS_ITS | Encounter Summary ---
Author Organization [facility] Address [address] [place] [address] Care Team Providers Care Seismic Prospecting Observer Helper Name Role Phone Unavailable Primary Care Provider Unavailabl e Encounter Details Date Type Department Care Team (Late st Contact Info) Description 11/29/2006 Results Only [facility] - Maple conversion [address] [place] [address] Daniel Hernandez, BLADIMIR [address] [place] [address] Social History Tobacco Use Types [...] ? YARA ZHENG ? Accession #: ? [id number] : ? 1960 (Age: 46) ??F ?Collect Date: ? 11/29/2006 Location: ? [facility] ? Receive Date: ? 12/02/2006 Provider: ?DANIEL HERNANDEZ PROFESSIONAL SERVICES CONSULTANT Copy to: ? Specimen/Source: ?ThinPrep Pap Test, Cervix/Endocervix, processed on SHADO ThinPrep Imaging System, with manual evaluation Last Menstrual Period: ? 11/07/06 Other: ? HPVA - HPV testing requested if ASC-US on the current ThinPrep Pap test. ? SPECIMEN ADEQUACY ? Satisfactory for Evaluation - transformation zone component present GENERAL CATEGORIZATION ? Negative for Intraepithelial Lesion or Malignancy ? Document reviewed and electronically signed by: ? Bharat Wilson, MAYA(ASCP) ? Report Date: ??12/08/2006 15:36 End of Report [facility] 11/29/2006 12/02/2006 us Daniel Hernandez NP PATHOLOGY ORDERABLES Final R esult [facility] [address] [place] [address] documented in this encounter Visit Diagnoses Not on filedocumented in this encounter
--- OUTSIDE RECORDS SUMMARY | 2024-06-05 14:06 | XMS_ITS | Encounter Summary ---
Author Organization [facility] Address [address] [place] [address] Care Team Providers Care Pelt Salter Name Role Phone Dharmesh Catalina BROWN Primary Care Provider [phone] Encounter Details Date Type Department Care Team (Latest Contact Info) Description 10/07/2020 Lab Requisition [facility] Pathology & Laboratory Medicine - [facility] [address] [place] [address] Leland Patel, [facility] [address] [place] [place] [id number] Encounter for general adult medical examination without [...] Risk types, PCR Negative Negative 10/11/2020 15:27 T [facility] Comment:No E6 or E7 mRNA is detected from HPV types 16,18,31,33,35,39,45,51,52,56,58,59,66, and 68 by hematology nurse mediated amplification. Papanicolaou smear specimen (specimen) CERVIX UTERI STRUCTURE / Unknown 10/04/2020 13:20 EDT 10/10/2020 13:04 EDT us Leland Echavarria DNP MICROBIOLOGY - GENERAL OR DERABLES Final Result Performing Organization Address City/State/[facility] Co de Phone Number [facility] [address] [place] [id number] * PAP TEST (10/04/2020 13:20 EDT) Specimens A. Cervix and/or Endocervix , ThinPrep Imaging System with Manual Evaluation 10/11/2020 15:27 [facility] Specimen Adequacy Satisfactory for Evaluation - transformation zone component present 10/11/2020 15:27 [facility] General Categorization Negative for intraepithelial lesion or malignancy 10/11/2020 15:27 [facility] Attestation . 10/11/2020 15:27 [facility] at 1527 Clinical History See below 10/12/19 21 15:27 [facility] HPV The result for the Human Papillomavirus (HPV) Detection-High Risk Types is Negative. No E6 or E7 mRNA is detected from HPV types 16,18,31,33,35,39 ,45,51,52,56,58,5 9,66, and 68 by hematology nurse mediated amplification.Jeanette ting was performed on specimen [id number] and was resulted on 10/11/2020 1524 EDT by FRANK, LAB INSTRUMENT RESULTS IN 10/11/2020 15:27 EDT [facility] Performing Lab [facility] 10/11/2020 15:27 EDT [facility] Scanned Images 10/11/2020 15:27 EDT [facility] Papanicolaou smear specimen (specimen) CERVIX UTERI STRUCTURE / Unknown 10/04/2020 13:20 EDT 10/07/2020 15:56 EDT us Leland Echavarria DNP PATHOLOGY ORDERABLES Rehana vaz Result [facility] [address] [place] [address] documented in this encounter Visit Diagnoses Diagnosis Encounter for general adult medical examination without abnormal findings Unspecified general medical examination Encounter for screening for malignant neoplasm of cervix Screening for malignant neoplasm of the cervix Encounter for screening for human papillomavirus (HPV) Special screening examination for human papillomavirus (HPV) documented in this encounter Care Teams Pelt Salter Relationship Specialty Start Date End Date Catalina Barroso APRN [address] [place] [address] PCP - General 03/22/18 documented as of this encounter
[2024-06-05 16:51] LABS: Hemoglobin A1C 5.5 % (<5.7)
[2024-06-05 17:04] LABS: ALT 13 U/L (14-59); AST 16 U/L (15-37); Albumin 3.8 g/dL (3.4-5.0); Alkaline Phosphatase 115 U/L (46-116); BUN 17 mg/dL (7-18); CREATININE 0.9 mg/dL (0.55-1.02); Calcium 8.9 mg/dL (8.5-10.1); Chloride 103 mmol/L (98-107); Estimated GFR 70.95 (mL/min/1.73m2); Glucose 80 mg/dL (74-106); Potassium 4.4 mmol/L (3.5-5.1); Sodium 140 mmol/L (136-145); TSH (W/Ref FT4) 2.59 uIU/mL (0.36-3.74); Total Protein 7.5 g/dL (6.4-8.2)
== END 2024-06-05 14:00 | disposition home or self-care (01) ==
LOC: NCHCN 13:59
PROVIDERS: PCP Nurse Practitioner Family; Visit Provider Nurse Practitioner Family
DX: Z68.30 Body mass index [BMI] 30.0-30.9, adult (principal); E66.9 Obesity, unspecified
CPT/HCPCS: 80053; 83036; 84443

== ENCOUNTER 2024-06-08 15:31 | Outpatient (CLI) | payer MEDICARE, OTHER, SELFPAY ==
--- NOTE | 2024-06-08 10:30 | DI.RAD_ITS ---
Exam(s) XR WRIST LT LIMITED EXAM: XR WRIST LT LIMITED CLINICAL HISTORY: F/U FRACTURE. TECHNIQUE: 2D digital imaging was performed of the left wrist. Two images were obtained. PA and la teral views were obtained. COMPARISON: CR XR WRIST LT COMPLETE from 05/09/2024 CR XR WRIST LT LIMITED from 05/25/2024 FINDINGS: BONES: There has been no change in alignment of the distal left radial fracture. There is increased sclerosis about the fracture suggesting some interval healing. No bony destructive lesion is seen. T here is a question of a lucency at the base of the ulnar styloid process which may represent nondispl aced fracture. JOINTS: Stable alignment of the carpal bones. There are degenerative changes seen at the 1st CMC tien nt. SOFT TISSUE: Normal. IMPRESSION: Stable alignment of the distal left radial fracture as described above. Please see the above discuss ion for complete details. DATA REPOSITORY: RADIATION DOSE DELIVERED:
== END 2024-06-08 15:32 | disposition home or self-care (01) ==
LOC: DIORS 15:32
PROVIDERS: PCP Nurse Practitioner Family; Referring Provider Nurse Practitioner Family; Visit Provider Physician Assistant
DX: S52.502D Unspecified fracture of the lower end of left radius, subsequent encounter for closed fracture with routine healing (principal); X58.XXXD Exposure to other specified factors, subsequent encounter
CPT/HCPCS: 99213; 73100

== ENCOUNTER 2024-06-22 11:29 | Outpatient (CLI) | payer MEDICARE, OTHER, SELFPAY ==
--- NOTE | 2024-06-22 10:45 | DI.RAD_ITS ---
Exam(s) XR WRIST LT LIMITED EXAM: XR WRIST LT LIMITED INDICATION: F/U L RADIAL FX. COMPARISON: CR XR WRIST LT LIMITED from 05/25/2024 CR XR WRIST LT LIMITED from 06/08/2024 TECHNIQUE: 2D digital imaging was performed. Two views. FINDINGS: There has been continued healing at the distal radial fracture, within crease sclerosis. The ulnar s tyloid fracture remains nondisplaced. DATA REPOSITORY: RADIATION DOSE DELIVERED:
== END 2024-06-22 11:30 | disposition home or self-care (01) ==
LOC: DIORS 11:30
PROVIDERS: PCP Nurse Practitioner Family; Referring Provider Nurse Practitioner Family; Visit Provider Physician Assistant
DX: S52.502D Unspecified fracture of the lower end of left radius, subsequent encounter for closed fracture with routine healing (principal); X58.XXXD Exposure to other specified factors, subsequent encounter
CPT/HCPCS: 99214; 73100

== ENCOUNTER 2024-07-20 15:25 | Outpatient (CLI) | payer MEDICARE, OTHER, SELFPAY ==
--- NOTE | 2024-07-20 09:45 | DI.RAD_ITS ---
Exam(s) XR WRIST LT LIMITED EXAM: XR WRIST LT LIMITED CLINICAL HISTORY: f/u L DISTAL RAD FX. TECHNIQUE: 2D digital imaging was performed of the left wrist. Two images were obtained. PA and la teral views were obtained. COMPARISON: CR XR WRIST LT LIMITED from 06/22/2024 FINDINGS: BONES: There has been continued healing of the distal radial fracture. No change in alignment of the fracture is seen. No new fractures present. The ulnar styloid process appears stable. No bony alexis tructive lesion is seen. JOINTS: The carpal bones are normally aligned. Mild degenerative changes are seen in the wrist. SOFT TISSUE: Normal. IMPRESSION: Stable distal left radial fracture which shows continued healing. DATA REPOSITORY: RADIATION DOSE DELIVERED:
== END 2024-07-20 15:26 | disposition home or self-care (01) ==
LOC: DIORS 15:25
PROVIDERS: PCP Nurse Practitioner Family; Referring Provider Nurse Practitioner Family; Visit Provider Student in an Organized Health Care Education/Training Program
DX: S52.92XD Unspecified fracture of left forearm, subsequent encounter for closed fracture with routine healing (principal); X58.XXXD Exposure to other specified factors, subsequent encounter
CPT/HCPCS: 99213; 73100

== ENCOUNTER → 2024-09-14 10:49 | Outpatient (BNVA) | payer MEDICARE, OTHER, SELFPAY | PROVIDERS: PCP Nurse Practitioner Family; Visit Provider Student in an Organized Health Care Education/Training Program | DX: S52.92XD Unspecified fracture of left forearm, subsequent encounter for closed fracture with routine healing (principal); X58.XXXD Exposure to other specified factors, subsequent encounter | CPT/HCPCS: 99213 ==